=== PATIENT | female | born 1950 | race Caucasian/White ===

== ENCOUNTER 2017-03-17 13:01 | Inpatient (IN) ==
[2017-03-17] MEDS ORDERED: 0.9 % Sodium Chloride 1,000 ML IVC ONE ×2 (13:15→13:38)
[2017-03-17] MEDS ORDERED: Amiodarone Premix 360 MG/200 ML BAG IVC ONE (13:32)
[2017-03-17] MEDS ORDERED: Amiodarone Premix 150 MG/100 ML BAG IVPB ONE (13:32)
[2017-03-17 13:35] LABS: Basophils % 0.4 %; Hematocrit 33.6 % (35.3-44.9); Hemoglobin 10.4 g/dL (11.5-15.4); Immature Granulocytes % 1.1 % (0-4); Lymphocytes # 1.4 K/mcL (0.6-4.6); Lymphocytes % 25.5 %; Mean Corpuscular Hemoglobin 30.3 pg (28.0-33.3); Mean Platelet Volume 9.4 fL (9.4-12.4); Monocytes # 0.4 K/mcL (0.0-1.3); Monocytes % 7.4 %; Neutrophils # 3.7 K/mcL (1.6-8.9); Platelet Count 173 K/mcL (140-400); Red Blood Count 3.43 M/mcL (3.82-4.97); Red Cell Distribution Width 16.6 % (11.5-14.5); Segmented Neutrophils % 65.6 %
[2017-03-17 13:40] LABS: INR 1.2; Prothrombin Time 12.9 Seconds (9.4-12.1)
[2017-03-17 13:43] LABS: Activated Partial Thrombo Time 56.1 Seconds (26.0-36.0)
[2017-03-17 13:47] LABS: Calcium 8.7 mg/dL (8.6-10.8); Magnesium 1.9 mg/dL (1.6-2.6); Potassium 4.1 mEq/L (3.5-4.5)
[2017-03-17 14:08] LABS: Thyroid Stimulating Hormone 1.003 mcIU/mL (0.350-4.840)
[2017-03-17] MEDS ORDERED: *HR* Heparin 5,000 UNIT/ML VIAL IVP PRN (14:27)
[2017-03-17] MEDS ORDERED: *HR* Heparin 5,000 UNIT/ML VIAL IVP ONE (14:27)
--- NOTE | 2017-03-17 14:28 | Emergency Department Note ---
Disposition Clinical Impression: Atrial fibrillation with rapid ventricular response Chronic kidney disease (CKD) Qualifiers: Chronic kidney disease stage: stage 5, not on chronic dialysis Qualified Code(s ): N18.5 - Chronic kidney disease, stage 5 Disposition: Admitted As Inpatient Condition: Good Referrals: Eleazar Calhoun MD [Primary Care Provider] - Forms: ED Satisfaction Letter Arrhythmia/Palpitations HPI - General Chief Complaint: ED Dizziness Stated Complaint: lightheaded, cough, "high hr" Time Seen by Provider: 03/17/17 13:15 Source: patient, family Limitations: no limitations Nursing Notes Reviewed: Yes Vital Signs Reviewed: Yes - History of Present Illness Pt Subjective Complaint: rapid heart beat, "heart racing", "skipped beats" Onset (ago): week(s) (2) Duration: intermittent Severity: moderate Context: occurred during exertion Associated symptoms: Denies: chest pain, nausea, vomiting, paresthesias Treatments prior to arrival: other (Patient states when she stands up or walks symptoms worsen but she is asymptomatic at rest) - Related Data Allergies Allergy/AdvReac Type Severity Reaction Status Date / Time bacitracin Allergy Rash Verified 02/20/17 19:14 [From Neosporin ([id number])] Neomycin Allergy Rash Verified 02/20/17 19:14 [From Neosporin ([id number])] polymyxin B Allergy Rash Verified 02/20/17 19:14 [From Neosporin ([id number])] atorvastatin AdvReac Cramping Verified 03/17/17 14:40 of the Muscles plastic Allergy Rash Uncoded 02/20/17 19:14 tape Allergy Rash Uncoded 02/20/17 19:14 All systems ED: reviewed and negative except as stated. Constitutional: Reports: weakness. Denies: fever, chills Cardiovascular: Reports: palpitations, dyspnea on exertion. Denies: chest pain Respiratory: Reports: dyspnea Past Medical History - Past Medical History Source: patient, old records reviewed, nursing notes reviewed Medical history: Reports: CHF, coronary artery disease, diabetes, dialysis, hypertension, renal disease, other Surgical history: Reports: non-contributory Psychiatric history: Reports: no psych history MANAGER FORENSIC history: Reports: no MANAGER FORENSIC history - Social History Smoking Status: Never smoker Smokeless Tobacco Status: No Alcohol use: Reports: none Drug use: Reports: none Physical Exam - General Limitations: no limitations General appearance: alert - Head Head exam: atraumatic, normocephalic, normal inspection - Eye Eye exam: Present: normal appearance, PERRL, EOMI - ENT ENT exam: normal exam, normal oropharynx, mucous membranes moist - Neck Neck exam: Present: normal inspection, full ROM, trachea midline - Chest Chest inspection: Present: normal inspection, symmetric chest wall rise - Cardiovascular Cardiovascular exam: Present: tachycardia, irregular rhythm - Abdominal Exam Abdominal exam: Present: soft, Non-Tender. Absent: tenderness, distention, guarding, rebound, rigidity - Neurological Exam Neurological exam: Present: alert, oriented X3 - Psychiatric Psychiatric exam: Present: normal affect, normal mood - Skin Skin exam: Present: warm, dry, intact, normal color Course - Consultations Consultation #1: I spoke with Dr. Rios after initial EKG patient with no known history of arrhythmia presents with palpitations tachycardia in a wide-complex tachycardia on EKG. We decided to start with amiodarone until we can differentiate between V. tach and atrial fibrillation. Patient's rate did slow repeat EKG pattern appears to be more atrial fibrillation Dr. Rios wants to keep amiodarone for now they may change the medication to an AV mamie rancho later on started heparin drip admitted to the hospitalist service with cardiology consultation Time: 14:29 Vital Signs Temperature 98.4 F 03/17/17 13:03 Pulse Rate 145 03/17/17 13:03 Respiratory Rate 22 03/17/17 13:03 Blood Pressure 108/70 03/17/17 13:03 O2 Sat by Pulse Oximetry 96 03/17/17 13:03 Temperature 98.4 F 03/17/17 13:03 Pulse Rate 128 03/17/17 13:57 Respiratory Rate 18 03/17/17 13:57 Blood Pressure 128/69 03/17/17 13:57 O2 Sat by Pulse Oximetry 94 03/17/17 13:57 Oxygen Delivery Oxygen Delivery Room Air Arrhythmia/Palpitations - Differential Diagnosis Differential Diagnosis: Likely: ventricular premature beats, supraventricular tachycardia, ventricular tachycardia, metabolic/electrolyte disturbance, undetermined arrhythmia - Medical Records Medical records reviewed: Yes I reviewed the patient's medical records. - Lab Data Lab results reviewed: Yes I reviewed the patient's lab results. Result diagrams: 03/17/17 13:19 03/17/17 13:19 Lab Results 03/17/17 03/17/17 03/17/17 Range/Units 13:19 13:19 13:19 WBC 5.6 (4.3-11.1) K/mcL RBC 3.43 L (3.82-4.97) M/mcL Hgb 10.4 L (11.5-15.4) g/dL Hct 33.6 L (35.3-44.9) % MCV 98.0 (83.0-100.0) fL MCH 30.3 (28.0-33.3) pg MCHC 31.0 L (31.6-35.5) g/dL RDW 16.6 H (11.5-14.5) % Plt Count 173 (140-400) K/mcL MPV 9.4 (9.4-12.4) fL Immature Gran % 1.1 (0-4) % Seg Neutrophils % 65.6 % Lymphocytes % 25.5 % Monocytes % 7.4 % Eosinophils % 0.0 % Basophils % 0.4 % Neutrophils # 3.7 (1.6-8.9) K/mcL Lymphocytes # 1.4 (0.6-4.6) K/mcL Monocytes # 0.4 (0.0-1.3) K/mcL Eosinophils # 0.0 (0.0-0.6) K/mcL Basophils # 0.0 (0.0-0.2) K/mcL PT 12.9 H (9.4-12.1) Seconds INR 1.2 APTT 56.1 H (26.0-36.0) Seconds Sodium 139 (136-145) mEq/L Potassium 4.1 (3.5-4.5) mEq/L Chloride 100 (98-109) mEq/L Carbon Dioxide 28 (19-29) mEq/L BUN 38 H (7-20) mg/dL Creatinine 4.91 H (0.57-1.11) mg/dL Est GFR ( Amer) 11 L (> 60) Est GFR (Non-Af Amer) 9 L (> 60) BUN/Creatinine Ratio 8 (6-26) Glucose 216 H (70-99) mg/dL Calculated Osmolality 304 H (280-300) Calcium 8.7 (8.6-10.8) mg/dL Magnesium 1.9 (1.6-2.6) mg/dL Troponin I (0-0.03) ng/mL TSH 1.003 (0.350-4.840) mcIU/mL 03/17/17 Range/Units 13:19 WBC (4.3-11.1) K/mcL RBC (3.82-4.97) M/mcL Hgb (11.5-15.4) g/dL Hct (35.3-44.9) % MCV (83.0-100.0) fL MCH (28.0-33.3) pg MCHC (31.6-35.5) g/dL RDW (11.5-14.5) % Plt Count (140-400) K/mcL MPV (9.4-12.4) fL Immature Gran % (0-4) % Seg Neutrophils % % Lymphocytes % % Monocytes % % Eosinophils % % Basophils % % Neutrophils # (1.6-8.9) K/mcL Lymphocytes # (0.6-4.6) K/mcL Monocytes # (0.0-1.3) K/mcL Eosinophils # (0.0-0.6) K/mcL Basophils # (0.0-0.2) K/mcL PT (9.4-12.1) Seconds INR APTT (26.0-36.0) Seconds Sodium (136-145) mEq/L Potassium (3.5-4.5) mEq/L Chloride (98-109) mEq/L Carbon Dioxide (19-29) mEq/L BUN (7-20) mg/dL Creatinine (0.57-1.11) mg/dL Est GFR ( Amer) (> 60) Est GFR (Non-Af Amer) (> 60) BUN/Creatinine Ratio (6-26) Glucose (70-99) mg/dL Calculated Osmolality (280-300) Calcium (8.6-10.8) mg/dL Magnesium (1.6-2.6) mg/dL Troponin I 0.10 H* (0-0.03) ng/mL TSH (0.350-4.840) mcIU/mL - Radiology Data Radiology results reviewed: Yes I reviewed the patient's radiology results.
[2017-03-17] MEDS: Heparin 25,000 UNIT/500 ML D5W 25,000 UNIT/500 ML MLS IVC SCH (14:56)
[2017-03-17] MEDS ORDERED: Ondansetron 4 MG/2 ML VIAL IVP PRN (15:38)
[2017-03-17] MEDS ORDERED: Naloxone 0.4 MG/ML INJ IVP PRN (15:38)
[2017-03-17] MEDS ORDERED: *HR* Morphine 2 MG/ML SYRINGE IVP PRN (15:38)
[2017-03-17] MEDS ORDERED: Acetaminophen 325 MG TABLET PO PRN (15:38)
[2017-03-17] MEDS ORDERED: *HR* HYDROcodone/Acet 5/325 mg TABLET PO PRN (15:38)
[2017-03-17] MEDS ORDERED: *HR* Dextrose 50 % in Water (Syg) 50 ML SYRINGE IVP PRN (15:57)
[2017-03-17] MEDS ORDERED: Dextrose Gel 15 GM PO PRN ×2 (15:57)
[2017-03-17] MEDS ORDERED: D5% in Water 1,000 ML IVC PRN (15:57)
--- NOTE | 2017-03-17 15:57 | Internal Med History&Physical ---
<Guevara Dickinson - Last Filed: 03/17/17 16:41> Date of Encounter: 03/17/17 Time of Encounter: 15:00 Assessment and Plan (1) Atrial fibrillation with rapid ventricular response Current visit: Yes Status: Acute Patient presents with new onset of atrial fibrillation with RVR. Patient originally exhibited symptoms of V-tach and was placed on amiodarone and heparin drips in the ED. Following administration, it was flet that patient's symptomotology was due to Afib rather than V-tach. Will continue amiodarone and heparin IV drips, continuous cardiac telemetry ordered, will continue aspirin therapy, cardiology consult ordered (patient is currently followed by Dr. Anthony) , trend troponins x2 (patient's initial troponin level in ED was 0.10), and EV echocardiogram ordered. Will hold patient's Plavix. Patient to be monitored closely. (2) Lightheadedness Current visit: Yes Status: Acute Patient presents with chief complaint of lightheadedness related to standing. Will place patient on safety precautions and do orthostatic/bilateral BPs daily. Supplemental O2 ordered. (3) Orthostatic hypotension Current visit: Yes Status: Acute Patient presents with new onset of orthostatic hypotension when she stands up. She states that this is new for her. May be related to patient's current arrhythmia. Orthostatic and bilateral BPs ordered daily. Will monitor patient and vital signs. Falls precautions/af-eact-bxgqtg/bed rest with bedside commode with assist status ordered due to extreme lightheadedness and OH symptoms. (4) CHF (congestive heart failure) Current visit: Yes Status: Acute Patient presents with new diagnosis of CHF from approximately three weeks ago when she was also diagnosed with pneumonia. Supplemental O2 with titration if SpO2 <92%, continuous SpO2 monitoring, fluid restriction of 1.5L daily, Monitor I&O and daily weight, and continue patient's daily Lasix. Sputum culture ordered to assess for pneumonia. Qualifiers: Congestive heart failure type: unspecified congestive heart failure type Congestive heart failure chronicity: acute Qualified Code(s): I50.9 - Heart failure, unspecified (5) Diabetes Current visit: Yes Status: Chronic Patient presents with history of chronic diabetes with insulin dependency. Blood glucose monitoring ACHS. Will use low-dose correction sliding scale with hypoglycemia protocol. A1C ordered. Qualifiers: Diabetes mellitus type: type 2 Diabetes mellitus complication status: with unspecified complications Diabetes mellitus termination clerk insulin use: with prison use Qualified Code(s): E11.8 - Type 2 diabetes mellitus with unspecified complications; Z79.4 - detention (current) use of insulin (6) Chronic kidney disease (CKD) Current visit: Yes Status: Chronic Patient presents with history of chronic CKD, stage V with dialysis on M/W/F which began one month ago. Patient to be placed on cardiac diet with fluid restriction of 1.5L daily. Nephrology consult ordered and placed with Dr. Hurst who agrees to see patient while inpatient and schedule dialysis. Monitor I&O and daily weight. Qualifiers: Chronic kidney disease stage: on chronic dialysis Qualified Code(s): N18.6 - End stage renal disease; Z99.2 - Dependence on renal dialysis (7) DVT prophylaxis Current visit: Yes Status: Acute Patient to be placed on DVT prophylaxis due to admission protocol, new onset of atrial fibrillation with RVR, and bed rest status. Patient to be placed on Heparin drip. Anti-embolic stockings to be placed bilaterally. Internal Medicine - H&P: HPI Chief complaint: Lightheadedness, Rapid/racing HR Admitted From: Emergency Dept Plans for Post Hospital Care: Home History of present illness: Mrs. Madden is a 67 year old female who presents from the ED with chief complaint of being lightheaded and having a rapid/racing HR which she reports began in January and has become progressively worse over the past several days which led her to seek treatment in the ED. She states that she has no known previous history of atrial fibrillation. She states that she is fine when at rest or supine, but she becomes dizzy with standing and her BP drops significantly. She reports SOB with the rapid HR but denies chest pain, radiation, or numbness/tingling. Mrs. Madden reports that she was diagnosed with CHF and pneumonia approximately three weeks ago and placed on antibiotics and a steroid. She states that she finished both but continues to have a productive cough that she feels may still be pneumonia. Patient denies nausea, vomiting, generalized weakness, fever, chills, numbness, tingling, constipation , or diarrhea. Patient has a history of new CHF, CAD, diabetes with insulin dependency, hypertension, advanced stage renal disease (stage V with current GFR of 9), and recently began dialysis one month ago. She reports having two previous MIs that were asymptomatic and placement of 4 stents. Patient denies use of home O2 at this time. Patient was placed on IV amiodarone and heparin drips in the ED with cardiology consult placed. Mrs. Madden is high risk due to her new onset of atrial fibrillation with RVR and current cardiac risk factors and will be admitted as inpatient with continuous cardiac telemetry, continuation of amiodarone drip and heparin drip, trending troponins x2 (1st troponin on ED admission was 0.10), EV echocardiogram, bilateral and orthostatic BPs, nephrology consult with Dr. Hurst for continuation of patient's dialysis on Sunday, March 19, and falls precautions/[id number] status. Sputum culture ordered to assess for pneumonia. Patient to be monitored closely for new signs of RVR or V-tach. Time spent with patient >40 minutes. Past Med Surg Social Fam HX - Past Medical History Source: patient Medical history: CHF, coronary artery disease, diabetes, dialysis, hypertension , renal disease, other Psychiatric history: no psych history - Past Surgical History Surgical History: angioplasty/stent (x4), cholecystectomy, hysterectomy, orthopedic, other (Left hand, left foot, right shoulder), other (Balloon procedure in right arm for fistula) - Social History Smoking Status: Never smoker Smokeless Tobacco Status: No Alcohol use: none Drug use: none Current living situation: Home, With Family Activity Level: Independent ambulation Recent Out of Country Travel Within the Last 8 Weeks: No Exposure or Possible Exposure to Illness During Travel: No - Family History Father Race: Family Member Ethnicity: Non- Living Status: Age at : 50 Cause of : [place] Hx Family Cardiac Disorders: Yes ([place]) Mother Race: Family Member Ethnicity: Non- Living Status: Age at : 76 Cause of : Car accident Hx Family Cardiac Disorders: Yes (HD) Hx Family Endocrine Disorder: Yes (DM) Brother Race: Family Member Ethnicity: Non- Living Status: Still Living Hx Family Cardiac Disorders: Yes (HD) Hx Family Endocrine Disorder: Yes (DM) Sister Race: Family Member Ethnicity: Non- Living Status: Age at : 53 Cause of : Ovarian cancer Hx Family Cardiac Disorders: Yes (HD) Hx Family Cancer: Yes (Ovarian) Internal Medicine - H&P: Meds Aspirin [Lo-Dose Aspirin EC] 81 mg PO DAILY 03/17/17 [History] Carvedilol [Coreg] 6.25 mg PO BID 03/17/17 [History] Cholecalciferol (Vitamin D3) [Vitamin D] 2,000 unit PO WETHFR 03/17/17 [History] Clopidogrel [Plavix] 75 mg PO DAILY 03/17/17 [History] Furosemide [Lasix] 60 mg PO BID 03/17/17 [History] Gabapentin [Neurontin] 100 mg PO TID 03/17/17 [History] Hydralazine HCl 50 mg PO TID 03/17/17 [History] Insulin Glargine,Hum.rec.anlog [Lantus Solostar] 18 - 24 unit SQ BID 03/17/17 [ History] Insulin LISPRO [Humalog] 4 - 16 unit SQ TIDWM 03/17/17 [History] Isosorbide MONOnitrate (24 HR) [Imdur] 60 mg PO DAILY 03/17/17 [History] amLODIPine [Norvasc] 10 mg PO DAILY 03/17/17 [History] Allergies bacitracin [From Neosporin ([id number])] Allergy (Verified 02/20/17 19:14) Rash Neomycin [From Neosporin ([id number]-ide-[id number])] Allergy (Verified 02/20/17 19:14) Rash polymyxin B [From Neosporin ([id number])] Allergy (Verified 02/20/17 19:14) Rash atorvastatin Adverse Reaction (Verified 03/17/17 14:40) Cramping of the Muscles plastic Allergy (Uncoded 02/20/17 19:14) Rash tape Allergy (Uncoded 02/20/17 19:14) Rash All Systems PM: A 10-system review of systems was performed and is negative for pertinent findings except as documented above in the HPI. - Constitutional Constitutional: no chills, no fever(s), no night sweats - EENT Eyes: no change in vision, no discharge, no pain, no photophobia Ears: no ear discharge, no ear pain, no tinnitus Nose, mouth and throat: no dysphagia, no nasal discharge, no neck pain, no sore throat - Breasts Breasts: as per HPI - Cardiovascular Cardiovascular ROS IM: as per HPI, dyspnea, dyspnea on exertion, irregular heart rhythm, lightheadedness - Respiratory Respiratory: as per HPI, cough, dyspnea, dyspnea on exertion, chest congestion - Gastrointestinal Gastrointestinal: no abdominal pain, no diarrhea, no hematemesis, no hematochezia, no melena, no nausea, no vomiting - Genitourinary Genitourinary: no change in urinary stream, no dysuria, no flank pain, no hematuria Menstruation: as per HPI, post hysterectomy - Musculoskeletal Musculoskeletal ROS IM: no numbness, no tingling - Integumentary Integumentary IM: no rash, no unusual bruising - Neurological Neurological ROS: as per HPI, dizziness, no confusion, no convulsions, no focal weakness, no numbness, no tingling, no tremor(s) - Psychiatric Psychiatric: as per HPI - Endocrine Endocrine IM: as per HPI - Hematologic/Lymphatic Hematologic/Lymphatic: no easy bruising - Allergic/Immunologic Allergic/Immunologic: as per HPI - Constitutional Vitals: Temp Pulse Resp BP Pulse Ox 98.4 F 128 18 122/87 94 03/17/17 13:03 03/17/17 13:57 03/17/17 15:14 03/17/17 15:14 03/17/17 13:57 General appearance: Present: cooperative, A&O X 3, pleasant, no acute distress, obese, answers questions appropriately - Head Head exam: Present: atraumatic, normocephalic - Eye Eye exam: Present: PERRL, conjuntiva pink, sclera anicteric Pupils: Present: PERRL - ENT ENT exam: Present: normal exam, normal external ear exam - Neck Neck exam general surgery: Present: supple, trachea midline. Absent: lymphadenopathy - Respiratory Respiratory exam: Present: CTAB. Absent: accessory muscle use, rales, rhonchi, wheezes - Cardiovascular Cardiovascular exam: Present: irregular rhythm - GI/Abdominal GI/Abdominal exam: Present: normal bowel sounds, soft, no peritoneal signs. Absent: distended, tenderness - Rectal Rectal exam: Present: deferred - Additional comments: exam deferred. - Extremities Exam Extremities exam: Present: warm, radial pulses palpable and symetrical. Absent : calf tenderness, cyanotic, pedal edema - Back Exam Back exam: Present: normal inspection - Neurological Exam Neurological exam: Present: CN II-XII intact, oriented X3, no focal deficits. Absent: pronater drift, facial droop, speech deficit - Psychiatric Psychiatric exam: Present: normal affect, normal mood - Skin Skin exam: Present: dry, intact Internal Med - H&P Results - Labs CBC & Chem 7: 03/17/17 13:19 03/17/17 13:19 - EKG Data Prior EKG available for review: yes When compared to previous EKG: there are significant changes EKG comments: 03/17/17 16:17 EKG dated 02/18/16 shows sinus bradycardia with marked left axis deviation and moderate voltage criteria for LVH, possible anteroseptal myocardial infarction of indeterminate age. EKG dated 03/17/17 shows atrial fibrillation with RVR, marked left axis deviation, and left bundle branch block. - Diagnostic Studies Chest x-ray Additional comments: Impressions Chest X-Ray 03/17/17 13:15 IMPRESSION: Negative portable study. D/ / Nancy Stauffer Cha, MD / Nancy Stauffer Cha, MD Interpreting Provider: Nancy Stauffer Cha, MD <Han Aponte T - Last Filed: 03/17/17 17:41> Date of Encounter: 03/17/17 Internal Medicine - H&P: HPI History of present illness: Ms. Madden is a 67 year old female All Systems PM: A 10-system review of systems was performed and is negative for pertinent findings except as documented above in the HPI. - Constitutional Vitals: Temp Pulse Resp BP Pulse Ox 99.0 F 115 20 108/81 95 03/17/17 15:54 03/17/17 15:53 03/17/17 15:53 03/17/17 15:53 03/17/17 15:53 Internal Med - H&P Results - Labs CBC & Chem 7: 03/17/17 13:19 03/17/17 13:19 - Attending Attestation I have independently seen and examined this patient, plan of care discussed with patient and family, as well as KISHOR Dickinson 67 F with PMH of ESRD on HD, HTN, CAD with multiple stents, CHFpEF, Chronic LBBB on EKG Presented to ER with dizziness and fluttering/palpitations and shortness of breath for a couple of days. She also complained of low blood pressure upon getting up. She denies chest pain, no abdominal or symptoms. In the ER, was found to be tachycardia, HR 143, not in any form of distress Her work up further revealed a wide complex tachycardia (patient has LBBB on her old EKGs), Hb at baseline, K and mag are acceptable, Troponin elevated at 0.10, TSH WNL. Cardiology was consulted due to the wide complex tachycardia in a hemodynamically stable patient and recommended amiodarone and heparin infusions. Her repeat EKG then showed Afib. On evaluation, she is in no form of distress, speaks full sentences, HR ranged from 105-110 at time of review, BP WNL, AAOX3, and no complains of dizziness at this time, Chest exam revealed few fine crackles. R>L. No wheezing, abdomen exam is benign and no pedal edema, she has a functioning R AVF. A/P *Afib with RVR: Continue amiodarone and heparin drip, hold Plavix. Cardiology eval, Obtain ECHO-last echo was 01/2016, noted. TSH is WNL *Elevated troponin possibly from demand ischemia from tachycardia, however, patient has multiple cardiac history, trend troponins, monitor Mag and Potassium. *Consult renal for resumption of routine dialysis, resume home meds. Rest of details as in [facility] documentation .
[2017-03-17 17:12] LABS: Activated Partial Thrombo Time 210.4 Seconds (26.0-36.0)
[2017-03-17 17:20] LABS: Heparin anti-factor XA UFH 0.48 IU/mL (0.30-0.70)
[2017-03-17] MEDS: Insulin LISPRO 300 UNITS/3 ML VIAL SQ SCH ×2 (18:00→21:04)
[2017-03-17] MEDS: Amiodarone Premix 360 MG/200 ML BAG IVC SCH (19:49)
[2017-03-17] MEDS: hydrALAZINE 25 MG TABLET PO SCH (21:05)
[2017-03-17] MEDS: Gabapentin 100 MG CAPSULE PO SCH (21:05)
[2017-03-17] MEDS: Furosemide 40 MG TABLET PO SCH (21:05)
[2017-03-18 03:20] LABS: INR 1.2; Prothrombin Time 13.2 Seconds (9.4-12.1)
[2017-03-18 03:25] LABS: Basophils % 0.3 %; Hemoglobin 9.2 g/dL (11.5-15.4); Immature Granulocytes % 1.2 % (0-4); Lymphocytes # 1.8 K/mcL (0.6-4.6); Lymphocytes % 29.9 %; Mean Corpuscular HGB Conc 29.7 g/dL (31.6-35.5); Mean Corpuscular Hemoglobin 29.1 pg (28.0-33.3); Mean Corpuscular Volume 98.1 fL (83.0-100.0); Mean Platelet Volume 9.5 fL (9.4-12.4); Monocytes # 0.5 K/mcL (0.0-1.3); Monocytes % 7.9 %; Neutrophils # 3.7 K/mcL (1.6-8.9); Platelet Count 165 K/mcL (140-400); Red Blood Count 3.16 M/mcL (3.82-4.97); Red Cell Distribution Width 16.6 % (11.5-14.5); Segmented Neutrophils % 60.7 %
[2017-03-18 03:28] LABS: Hemoglobin A1C 7.3 %
[2017-03-18 03:29] LABS: Activated Partial Thrombo Time 71.1 Seconds (26.0-36.0)
[2017-03-18 03:32] LABS: Calcium 8.3 mg/dL (8.6-10.8); Chol/HDL Ratio 6.8 (0-4.9); Potassium 4.6 mEq/L (3.5-4.5)
[2017-03-18] MEDS: Insulin LISPRO 300 UNITS/3 ML VIAL SQ SCH ×4 (08:03→20:50)
[2017-03-18] MEDS: Amiodarone Premix 360 MG/200 ML BAG IVC SCH (08:04)
[2017-03-18] MEDS ORDERED: amLODIPine 5 MG TABLET PO SCH (09:00)
--- NOTE | 2017-03-18 09:22 | Cardiology Consult Note ---
Date of Encounter: 03/18/17 Time of Encounter: 09:15 Assessment and Plan (1) CAD in [place] artery Current Visit: Yes Status: Acute (2) Stented coronary artery Current Visit: Yes Status: Acute (3) Atrial fibrillation with rapid ventricular response Current Visit: Yes Status: Acute AF, HR now better controlled. LBBB noted. No chest pain reported. Recommend stop amiodarone. Increase carvedilol to 12.5 mg BID. If BP does not tolerate, reduce dose or consider changed to Toprol XL. CHADS-VASc score elevated. R/B/A to anticoagulation discussed. Given CKD on HD , coumadin would be best choice. Continue heparin drip for now and then consider transition to Coumadin after TTE resulted. Further recommedations to follow. (4) Troponin level elevated Current Visit: Yes Status: Acute Mildly elevation, flat troponin. Suspect related to AF with RVR and demand ischemia. Currently chest pain free. Presentation not c/w ACS. Discussion w patient/family: The assessment and plan as outlined above was discussed with the patient and/or family members who expressed understanding and agreement. All questions were answered. Thank you for involving us in the care of your patient. Please call with any questions. History of Present Illness Consult date: 03/18/17 Requesting physician: Han Aponte Consult reason: AF, LBBB Chief complaint: Lightheadedness, Tachycardia History of present illness: Ms. Madden is a 67 year old female who presented with primary complaints of palpitations/tachycardia and lightheadedness. Noted in ER to have tachycardia with wide QRS - at first, not clear if VT or AF with LBBB. Patient given amiodarone, once tachycardia slowed down, it became apparent rhythm with AF with LBBB. Today, HR better controlled. PMH - [place] CAD, prior PCI, CKD now on HD, DMII, HTN. Hg 9.2 K 4.1, now 4.6. Cr 4.91, 5.92. Tn 0.1, 0.1, 0.11 C 02/2015: LM nl. LAD proximal 50% ISR. Cx proximal 80% (stent x1 placed). RCA proximal 30%. RPDA 30% stenosis. TTE 01/2016: LVEF 60-65%. Mild concentric LVH. Moderate diastolic dysfunction. Normal RV size and function. Mild , MG 15 mmHg. Moderate MAC, thickened MV. No MS or MR. No pHTN. Past Med Surg Social Fam HX - Past Medical History Medical history: CHF, coronary artery disease, diabetes, dialysis, hypertension , renal disease, other Psychiatric history: no psych history - Past Surgical History Surgical History: angioplasty/stent, cholecystectomy, hysterectomy, orthopedic, other, other - Social History Smoking Status: Never smoker Smokeless Tobacco Status: No Alcohol use: none Drug use: none - Family History Father Race: Family Member Ethnicity: Non- Living Status: Age at : 50 Cause of : [place] Hx Family Cardiac Disorders: Yes ([place]) Mother Race: Family Member Ethnicity: Non- Living Status: Age at : 76 Cause of : Car accident Hx Family Cardiac Disorders: Yes (HD) Hx Family Endocrine Disorder: Yes (DM) Brother Race: Family Member Ethnicity: Non- Living Status: Still Living Hx Family Cardiac Disorders: Yes (HD) Hx Family Endocrine Disorder: Yes (DM) Sister Race: Family Member Ethnicity: Non- Living Status: Age at : 53 Cause of : Ovarian cancer Hx Family Cardiac Disorders: Yes (HD) Hx Family Cancer: Yes (Ovarian) Medications and Allergies Aspirin [Lo-Dose Aspirin EC] 81 mg PO DAILY 03/17/17 [History] Carvedilol [Coreg] 6.25 mg PO BID 03/17/17 [History] Cholecalciferol (Vitamin D3) [Vitamin D] 2,000 unit PO WETHFR 03/17/17 [History] Clopidogrel [Plavix] 75 mg PO DAILY 03/17/17 [History] Furosemide [Lasix] 60 mg PO BID 03/17/17 [History] Gabapentin [Neurontin] 100 mg PO TID 03/17/17 [History] Hydralazine HCl 50 mg PO TID 03/17/17 [History] Insulin Glargine,Hum.rec.anlog [Lantus Solostar] 18 - 24 unit SQ BID 03/17/17 [ History] Insulin LISPRO [Humalog] 4 - 16 unit SQ TIDWM 03/17/17 [History] Isosorbide MONOnitrate (24 HR) [Imdur] 60 mg PO DAILY 03/17/17 [History] amLODIPine [Norvasc] 10 mg PO DAILY 03/17/17 [History] Allergies bacitracin [From Neosporin ([id number]-[id number])] Allergy (Verified 02/20/17 19:14) Rash Neomycin [From Neosporin ([id number]-[id number])] Allergy (Verified 02/20/17 19:14) Rash polymyxin B [From Neosporin ([id number]-ivi-[id number])] Allergy (Verified 02/20/17 19:14) Rash atorvastatin Adverse Reaction (Verified 03/17/17 14:40) Cramping of the Muscles plastic Allergy (Uncoded 02/20/17 19:14) Rash tape Allergy (Uncoded 02/20/17 19:14) Rash All Systems Review: A 10-system review of systems was performed and is negative for pertinent findings except as documented above in the HPI. - Cardiovascular Cardiovascular: as per HPI, lightheadedness, palpitations, rapid heart rate Physical Examination Vital Signs, Last 4 Hours Temp Pulse Resp BP Pulse Ox 03/18/17 07:41 97.7 F 90 18 109/70 94 03/18/17 07:30 82 97 General: Conversant, No Apparent Distress HEENT: Atraumatic, Normocephaly, Mucus Membranes Moist Neck: No JVD Cardiac: Other (Irregular rate and rhythm, Grade 2 nan. ) Lungs: Normal Breath Sounds, No Wheeze, Rales, Rhonchi Neuro: Alert and responsive, No focal deficits noted Abdomen: Soft, Non-Tender Skin: No rashes noted on visualized skin Musculoskeletal: No Chest Wall Tenderness Extremities: No Clubbing, No Cyanosis, No Edema Results 03/18/17 02:58 03/18/17 02:58 Lab Results 03/17/17 03/17/17 03/18/17 16:34 18:54 02:58 WBC Hgb Hct Plt Count INR APTT 210.4 H* D Sodium Potassium Chloride Carbon Dioxide BUN Creatinine Glucose Calcium Troponin I 0.10 H* 0.11 H* 03/18/17 03/18/17 03/18/17 02:58 02:58 02:58 WBC 6.1 Hgb 9.2 L Hct 31.0 L Plt Count 165 INR 1.2 APTT 71.1 H D Sodium 139 Potassium 4.6 H Chloride 101 Carbon Dioxide 25 BUN 44 H Creatinine 5.92 H Glucose 147 H Calcium 8.3 L Troponin I - Imaging and Cardiology Echo: report reviewed Cardiac cath: report reviewed - EKG Interpretation EKG results cardiology: personally reviewed Consult Discharge Plan - Plan Referrals: Eleazar Calhoun MD [Primary Care Provider] -
[2017-03-18] MEDS: Aspirin Enteric Coated 81 MG Tablet PO SCH (09:56)
[2017-03-18] MEDS: hydrALAZINE 25 MG TABLET PO SCH ×3 (09:56→20:51)
[2017-03-18] MEDS: Gabapentin 100 MG CAPSULE PO SCH ×3 (09:57→20:51)
[2017-03-18] MEDS: Furosemide 40 MG TABLET PO SCH ×2 (09:57→20:51)
[2017-03-18] MEDS: Isosorbide MONOnitrate (24 HR) 60 MG TAB.ER.24H PO SCH (10:00)
--- NOTE | 2017-03-18 10:36 | Nephrology Consult Note ---
Date of Encounter: 03/18/17 Time of Encounter: 10:20 Assessment and Plan (1) ESRD (end stage renal disease) on dialysis Current Visit: Yes Status: Acute New onset Afib, on Amiodorone and Heparin drips. AR controlled, 92. ESRD on dialysis in setting of DM II and HTN. No urgent need for HD. Will dialyze tomorrow, keeping [facility] schedule. History of Present Illness - Reason for Consult end stage renal disease - History of Present Illness Ms. Madden is a 67 year old female with ESRD who dialyzes at [facility], last HD on Sunday. Other PMH- CAD, CHF, DM, HTN. Ms Madden presented to [facility] with new onset Afib with complaints of lightheadedness and fast heart rate. Started on Amiodorone and heparin drips. This morning states feeling much better. Denies SOB or chest pain. AR 92. Past Med Surg Social Fam HX - Past Medical History Medical history: CHF, coronary artery disease, diabetes, dialysis, hypertension , renal disease, other Psychiatric history: no psych history - Past Surgical History Surgical History: angioplasty/stent, cholecystectomy, hysterectomy, orthopedic, other, other - Social History Smoking Status: Never smoker Smokeless Tobacco Status: No Alcohol use: none Drug use: none - Family History Father Race: Family Member Ethnicity: Non- Living Status: Age at : 50 Cause of : [place] Hx Family Cardiac Disorders: Yes ([place]) Mother Race: Family Member Ethnicity: Non- Living Status: Age at : 76 Cause of : Car accident Hx Family Cardiac Disorders: Yes (HD) Hx Family Endocrine Disorder: Yes (DM) Brother Race: Family Member Ethnicity: Non- Living Status: Still Living Hx Family Cardiac Disorders: Yes (HD) Hx Family Endocrine Disorder: Yes (DM) Sister Race: Family Member Ethnicity: Non- Living Status: Age at : 53 Cause of : Ovarian cancer Hx Family Cardiac Disorders: Yes (HD) Hx Family Cancer: Yes (Ovarian) Medications and Allergies Aspirin [Lo-Dose Aspirin EC] 81 mg PO DAILY 03/17/17 [History] Carvedilol [Coreg] 6.25 mg PO BID 03/17/17 [History] Cholecalciferol (Vitamin D3) [Vitamin D] 2,000 unit PO WETHFR 03/17/17 [History] Clopidogrel [Plavix] 75 mg PO DAILY 03/17/17 [History] Furosemide [Lasix] 60 mg PO BID 03/17/17 [History] Gabapentin [Neurontin] 100 mg PO TID 03/17/17 [History] Hydralazine HCl 50 mg PO TID 03/17/17 [History] Insulin Glargine,Hum.rec.anlog [Lantus Solostar] 18 - 24 unit SQ BID 03/17/17 [ History] Insulin LISPRO [Humalog] 4 - 16 unit SQ TIDWM 03/17/17 [History] Isosorbide MONOnitrate (24 HR) [Imdur] 60 mg PO DAILY 03/17/17 [History] amLODIPine [Norvasc] 10 mg PO DAILY 03/17/17 [History] Allergies bacitracin [From Neosporin ([id number])] Allergy (Verified 02/20/17 19:14) Rash Neomycin [From Neosporin ([id number]-zby-zclbr)] Allergy (Verified 02/20/17 19:14) Rash polymyxin B [From Neosporin (qqy-sth-mpiqr)] Allergy (Verified 02/20/17 19:14) Rash atorvastatin Adverse Reaction (Verified 03/17/17 14:40) Cramping of the Muscles plastic Allergy (Uncoded 02/20/17 19:14) Rash tape Allergy (Uncoded 02/20/17 19:14) Rash Review of Systems All Systems: reviewed and no additional remarkable complaints except as stated Exam - Vital Signs Vital signs: Initial Vital Signs Temp Pulse Resp BP Pulse Ox 98.4 F 145 22 108/70 96 03/17/17 13:03 03/17/17 13:03 03/17/17 13:03 03/17/17 13:03 03/17/17 13:03 Vital Signs - Last 8 Hours Temp Pulse Resp BP Pulse Ox 03/18/17 07:41 97.7 F 90 18 109/70 94 03/18/17 07:30 82 97 03/18/17 05:12 97.6 F 92 20 112/97 96 03/18/17 04:37 95 Intake and Output 03/17/17 03/18/17 03/18/17 23:59 07:59 15:59 Intake Total 432 / 432 337 / 337 415 / 415 Output Total 0 / 0 Balance 432 / 432 337 / 337 415 / 415 Intake: IV Fluids 32 / 32 337 / 337 235 / 235 Amiodarone Drip Premix 195 / 195 35 / 35 360mg/200mL 360 mg In 200 ml @ 0.5 MG/MIN 16.667 mls/hr IVC CONT DELIO Rx#: [id number] Heparin 25,000 UNIT/500 32 / 32 142 / 142 ML D5W 25,000 unit In 500 ml @ 12 UNIT/KG/HR 21. 664 mls/hr IVC .Q23H5M DELIO Rx#:[id number] Oral 400 / 400 0 / 0 180 / 180 Output: Urine 0 / 0 Other: Stool Size Moderate Stool Consistency soft Stool Color Brown # Urine Diapers 2 # Bowel Movements 1 Weight 91.4 kg Blood Glucose* 184 121 Patient Weight 03/18/17 23:59 Weight 91.4 kg - General Appearance General appearance: well-developed, well-nourished, appears started age EENT: mucous membranes moist Neck: no JVD, no carotid bruit Respiratory: clear Cardiology: no edema, irregular rhythm Gastrointestinal: normoactive bowel sounds, no tenderness Integumentary: warm and dry Neurologic: alert and oriented x3 Psychiatric: mood/affect appropriate, cooperative Results - Lab Results 03/18/17 02:58 03/18/17 02:58 Most recent lab results Calcium 8.3 mg/dL (8.6-10.8) L 03/18/17 02:58 Magnesium 1.9 mg/dL (1.6-2.6) 03/17/17 13:19 Consult Discharge Plan - Plan Referrals: Eleazar Calhoun MD [Primary Care Provider] -
[2017-03-18] MEDS: *HR* Heparin 5,000 UNIT/ML VIAL IVP PRN (14:58)
--- NOTE | 2017-03-18 15:22 | Internal Med Progress Note ---
Date of Encounter: 03/18/17 Time of Encounter: 15:10 - Assessment and plan (1) Atrial fibrillation with rapid ventricular response Current Visit: Yes Status: Acute Assessment and plan: Patient presents with new onset of atrial fibrillation with RVR. stopped amiodarone, increased coreg, BP seems to be better now,HR seems much controlled. on heparin drip, change to coumadin at dc. f/u ECHO results (2) Chronic kidney disease (CKD) Current Visit: Yes Status: Chronic Assessment and plan: Patient presents with history of chronic CKD, stage V with dialysis on M/W/F which began one month ago. Patient to be placed on cardiac diet with fluid restriction of 1.5L daily. Nephrology consult ordered and placed with Dr. Hurst who agrees to see patient while inpatient and schedule dialysis. Monitor I&O Qualifiers: Chronic kidney disease stage: on chronic dialysis Qualified Code(s): N18.6 - End stage renal disease; Z99.2 - Dependence on renal dialysis (3) CHF (congestive heart failure) Current Visit: Yes Status: Acute Qualifiers: Congestive heart failure type: unspecified congestive heart failure type Congestive heart failure chronicity: acute Qualified Code(s): I50.9 - Heart failure, unspecified (4) Diabetes Current Visit: Yes Status: Chronic Assessment and plan: Patient presents with history of chronic diabetes with insulin dependency. Blood glucose monitoring ACHS. Will use low-dose correction sliding scale with hypoglycemia protocol. Qualifiers: Diabetes mellitus type: type 2 Diabetes mellitus complication status: with unspecified complications Diabetes mellitus [facility] insulin use: with [facility] use Qualified Code(s): E11.8 - Type 2 diabetes mellitus with unspecified complications; Z79.4 - [facility] (current) use of insulin (5) ESRD (end stage renal disease) on dialysis Current Visit: Yes Status: Acute Assessment and plan: will be followed by renal., HD on her regular days. - Subjective Interval history: seen at the bedside, denies any complains came in for hypotesion and tachycardia, noted to have afib rvr. cardio has been consulted, will follow recommendations. HR stable for now, on heparin drip plan to switch to coumadin. - Constitutional Vitals: Temp Pulse Resp BP Pulse Ox 97.7 F 99 16 103/70 92 03/18/17 11:20 03/18/17 14:52 03/18/17 11:20 03/18/17 14:52 03/18/17 14:52 General appearance: Present: cooperative, A&O X 3, pleasant, no acute distress, obese, answers questions appropriately Exam: neck- supple chest- b/l clear, no added sounds CVS-s1 and s2, no mr/r/g abd-soft, non tender, bs are present ext -no edema neuro- alert and awake, no focal neuro defecits. Internal Medicine: Result - Labs CBC & Chem 7: 03/18/17 02:58 03/18/17 02:58 Labs: Short CBC 03/18/17 Range/Units 02:58 WBC 6.1 (4.3-11.1) K/mcL Hgb 9.2 L (11.5-15.4) g/dL Hct 31.0 L (35.3-44.9) % Plt Count 165 (140-400) K/mcL Neutrophils # 3.7 (1.6-8.9) K/mcL BMP 03/18/17 02:58 Sodium 139 Potassium 4.6 H Chloride 101 Carbon Dioxide 25 BUN 44 H Creatinine 5.92 H Glucose 147 H Calcium 8.3 L Cardiac Enzymes 03/17/17 03/18/17 Range/Units 18:54 02:58 Troponin I 0.10 H* 0.11 H* (0-0.03) ng/mL - ABG Interpretation ABG results: PT/INR, D-dimer PT 13.2 Seconds (9.4-12.1) H 03/18/17 02:58 - Impressions Impressions Chest X-Ray 03/18/17 08:35 IMPRESSION: Cardiomegaly. No pneumonia or edema D/ / Quentin Godinez MD / Quentin Godinez MD Interpreting Provider: Quentin Godinez MD - VTE Documentation of Mechanical Device: Graduated compression elastic hosiery Consult Discharge Plan - Plan Referrals: Eleazar Calhoun MD [Primary Care Provider] -
[2017-03-18] MEDS: Heparin 25,000 UNIT/500 ML D5W 25,000 UNIT/500 ML MLS IVC SCH (21:00)
[2017-03-19 05:28] LABS: Basophils % 0.4 %; Hematocrit 33.4 % (35.3-44.9); Hemoglobin 10.3 g/dL (11.5-15.4); Immature Granulocytes % 1.9 % (0-4); Lymphocytes # 1.8 K/mcL (0.6-4.6); Lymphocytes % 34.1 %; Mean Corpuscular HGB Conc 30.8 g/dL (31.6-35.5); Mean Corpuscular Hemoglobin 30.5 pg (28.0-33.3); Mean Corpuscular Volume 98.8 fL (83.0-100.0); Mean Platelet Volume 10.6 fL (9.4-12.4); Monocytes # 0.4 K/mcL (0.0-1.3); Monocytes % 6.9 %; Neutrophils # 2.9 K/mcL (1.6-8.9); Platelet Count 127 K/mcL (140-400); Red Blood Count 3.38 M/mcL (3.82-4.97); Red Cell Distribution Width 16.5 % (11.5-14.5); Segmented Neutrophils % 56.7 %
[2017-03-19 05:31] LABS: INR 1.1; Prothrombin Time 12.4 Seconds (9.4-12.1)
[2017-03-19 05:40] LABS: Calcium 8.6 mg/dL (8.6-10.8); Potassium 4.6 mEq/L (3.5-4.5)
[2017-03-19] MEDS: *HR* Heparin 5,000 UNIT/ML VIAL IVP PRN (06:30)
[2017-03-19] MEDS: Insulin LISPRO 300 UNITS/3 ML VIAL SQ SCH ×4 (07:47→20:49)
[2017-03-19] MEDS: Isosorbide MONOnitrate (24 HR) 60 MG TAB.ER.24H PO SCH (07:52)
[2017-03-19] MEDS: Furosemide 40 MG TABLET PO SCH ×2 (07:52→23:36)
[2017-03-19] MEDS: Gabapentin 100 MG CAPSULE PO SCH ×3 (07:52→23:36)
[2017-03-19] MEDS: Aspirin Enteric Coated 81 MG Tablet PO SCH (07:53)
[2017-03-19] MEDS: hydrALAZINE 25 MG TABLET PO SCH ×3 (07:53→23:36)
[2017-03-19] MEDS ORDERED: amLODIPine 5 MG TABLET PO SCH (09:00)
[2017-03-19] MEDS ORDERED: 0.9 % Sodium Chloride 250 ML IVC PRN (09:03)
--- NOTE | 2017-03-19 09:03 | Nephrology Progress Note ---
Date of Encounter: 03/19/17 Time of Encounter: 09:01 - Assessment and Plan (1) ESRD (end stage renal disease) on dialysis Current Visit: Yes Status: Acute The patient will undergo dialysis later today. She will be placed on Aranesp for her anemia. She is scheduled to undergo a cardiac catheter today. (2) Atrial fibrillation with rapid ventricular response Current Visit: Yes Status: Acute (3) CAD in [place] artery Current Visit: Yes Status: Acute Subjective Interval history: Patient reports she is feeling better. She is less short of breath. Her heart rate is under better control. She is going to undergo cardiac catheter today followed by routine dialysis. Objective - Vital Signs Vital signs: Vital Signs Temp Pulse Resp BP Pulse Ox 03/19/17 07:27 97.7 F 91 16 117/80 91 03/19/17 04:49 97.8 F 95 17 117/80 95 03/19/17 03:45 85 03/18/17 23:44 97.6 F 93 16 109/68 100 03/18/17 22:55 98 03/18/17 20:50 95 03/18/17 20:24 98 F 95 17 120/83 94 03/18/17 18:04 98.8 F 109 16 114/86 90 03/18/17 17:43 106 114/86 92 03/18/17 14:52 99 103/70 92 03/18/17 11:52 90 95 03/18/17 11:20 97.7 F 99 16 116/80 90 Intake and Output 03/18/17 03/19/17 03/19/17 23:59 07:59 15:59 Intake Total 1273.8 / 1273.8 137 / 137 240 / 240 Balance 1273.8 / 1273.8 137 / 137 240 / 240 Intake: IV Fluids 163.8 / 163.8 137 / 137 Heparin 25,000 UNIT/500 163.8 / 163.8 137 / 137 ML D5W 25,000 unit In 500 ml @ 12 UNIT/KG/HR 21. 664 mls/hr IVC .Q23H5M DELIO Rx#:[id number] Oral 1110 / 1110 240 / 240 Other: Meal Dinner Breakfast Percent of Meal Consumed 90% 40% # Voids 1 Weight 90.7 kg Blood Glucose* 237 124 Patient Weight 03/19/17 23:59 Weight 90.7 kg - General Appearance Exam: Patient is alert and oriented. She is in no acute distress. Lungsbreath sounds otherwise clear. Heart irregular rate and rhythm consistent with atrial fibrillation. Abdomen is benign. There is minimal lower extremity swelling. There is a functioning AV fistula in the right upper extremity. - Lab 03/19/17 04:54 03/19/17 04:54 Most recent lab results Calcium 8.6 mg/dL (8.6-10.8) 03/19/17 04:54 Magnesium 1.9 mg/dL (1.6-2.6) 03/17/17 13:19 - VTE Documentation of Mechanical Device: Graduated compression elastic hosiery Consult Discharge Plan - Plan Referrals: Eleazar Calhoun MD [Primary Care Provider] -
--- NOTE | 2017-03-19 09:56 | Electrocardiograph Report ---
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
--- NOTE | 2017-03-19 09:57 | Electrocardiograph Report ---
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
--- NOTE | 2017-03-19 10:18 | Event Note ---
Date of Encounter: 03/19/17 Time of Encounter: 10:16 Known history of CAD, prior PCI. New CMP noted on echocardiogram. R/B/A to a LHC discussed. She is agreeable to proceed. Continue heparin for now; bridge to Coumadin for AF after LHC completed. Further recommendations to follow.
--- NOTE | 2017-03-19 11:04 | Pre-Sedation Evaluation ---
Pre-sedation evaluation - Pre-sedation checklist Date of procedure: 03/19/17 Procedure: LHC Recent Vitals: Last Vital Signs Temp 97.7 F 03/19/17 08:35 Pulse 91 03/19/17 08:35 Resp 16 03/19/17 08:35 BP 117/80 03/19/17 08:35 Pulse Ox 117 03/19/17 09:45 Dietary Status: NPO after Midnight ASA Classification *see protocol: CLASS II-Mild systemic disease Plan of Care: Pt appropriate candidate for procedure/moderate/conscious sedation , Risks/benefits of procedure/sedation discussed w/ patient/family
--- NOTE | 2017-03-19 12:19 | Internal Med Progress Note ---
Date of Encounter: 03/19/17 Time of Encounter: 12:16 - Assessment and plan (1) Atrial fibrillation with rapid ventricular response Current Visit: Yes Status: Acute Assessment and plan: Patient presents with new onset of atrial fibrillation with RVR. stopped amiodarone, increased coreg, BP seems to be better now,HR seems much controlled. on heparin drip, ECHO shows new cardiomyopathy. plan LHC today, will follow results (2) CHF (congestive heart failure) Current Visit: Yes Status: Acute Assessment and plan: new systolic CHF with EF of 35-40% plan to have LHC today with cardio. no signs of volume overload at this time, luis follow cardio recommendations Qualifiers: Congestive heart failure type: unspecified congestive heart failure type Congestive heart failure chronicity: acute Qualified Code(s): I50.9 - Heart failure, unspecified (3) Diabetes Current Visit: Yes Status: Chronic Assessment and plan: Patient presents with history of chronic diabetes with insulin dependency. Blood glucose monitoring ACHS. Will use low-dose correction sliding scale with hypoglycemia protocol. Qualifiers: Diabetes mellitus type: type 2 Diabetes mellitus complication status: with unspecified complications Diabetes mellitus usp insulin use: with bed bug exterminator use Qualified Code(s): E11.8 - Type 2 diabetes mellitus with unspecified complications; Z79.4 - intermediate teacher (current) use of insulin (4) ESRD (end stage renal disease) on dialysis Current Visit: Yes Status: Acute Assessment and plan: will be followed by renal., HD on her regular days. today for HD. - Subjective Interval history: seen at the bedside, denies any complains came in for hypotesion and tachycardia, noted to have afib rvr. cardio has been consulted,HR better today, ECHO results with new CM, plan for LHC Today. - Constitutional Vitals: Temp Pulse Resp BP Pulse Ox 97.8 F 94 16 83/64 92 03/19/17 11:22 03/19/17 11:22 03/19/17 11:22 03/19/17 11:22 03/19/17 11:22 General appearance: Present: cooperative, A&O X 3, pleasant, no acute distress, obese, answers questions appropriately Exam: neck- supple chest- b/l clear, no added sounds CVS-s1 and s2, no mr/r/g abd-soft, non tender, bs are present ext -no edema neuro- alert and awake, no focal neuro defecits. Internal Medicine: Result - Labs CBC & Chem 7: 03/19/17 04:54 03/19/17 04:54 Labs: Short CBC 03/19/17 Range/Units 04:54 WBC 5.2 (4.3-11.1) K/mcL Hgb 10.3 L (11.5-15.4) g/dL Hct 33.4 L (35.3-44.9) % Plt Count 127 L (140-400) K/mcL Neutrophils # 2.9 (1.6-8.9) K/mcL BMP 03/19/17 04:54 Sodium 139 Potassium 4.6 H Chloride 101 Carbon Dioxide 21 BUN 61 H D Creatinine 6.73 H Glucose 98 Calcium 8.6 - ABG Interpretation ABG results: PT/INR, D-dimer PT 12.4 Seconds (9.4-12.1) H 03/19/17 04:54 - VTE Documentation of Mechanical Device: Graduated compression elastic hosiery Consult Discharge Plan - Plan Referrals: Eleazar Calhoun MD [Primary Care Provider] -
[2017-03-19 13:13] LABS: Activated Partial Thrombo Time 132.1 Seconds (26.0-36.0)
[2017-03-19 13:29] LABS: Heparin anti-factor XA UFH 0.17 IU/mL (0.30-0.70)
[2017-03-19 13:37] LABS: Hepatitis B Surface Antigen Nonreactive (Nonreactive)
[2017-03-19] MEDS ORDERED: Verapamil 5 MG/2 ML VIAL ONE (14:30)
[2017-03-19] MEDS ORDERED: 0.9 % Sodium Chloride 1,000 ML ONE ×3 (14:30→19:13)
[2017-03-19] MEDS ORDERED: Nitroglycerin 1,000 MCG/10 ML VIAL IV ONE (14:31)
[2017-03-19] MEDS ORDERED: Heparin 1,000 UNITS/500 mL NS 500 ML ONE (14:31)
[2017-03-19] MEDS ORDERED: *HR* Heparin 10,000 UNIT/10 ML VIAL ONE (14:31)
[2017-03-19] MEDS ORDERED: *HR* FentaNYL (PF) 100 MCG/2 ML VIAL ONE (15:11)
[2017-03-19] MEDS ORDERED: *HR* Midazolam HCl 2 MG/2 ML VIAL ONE (15:11)
--- NOTE | 2017-03-19 15:56 | Event Note ---
Date of Encounter: 03/19/17 Time of Encounter: 15:52 Case discussed with interventional cardiology. No significant CAD amenable to revascularization. EF possibly better on v-gram. Recommend rate control and full AC for atrial fibrillation. Given ESRD, Coumadin would be best option. Recommend bridge coumadin with heparin drip. Recommend pharmacy to dose coumadin and refer to coumadin clinic. Start when okay with all services. Patient agreeable to start coumadin. Overall, HR seems well controlled. Recommend continue aspirin/BB therapy. BP marginal and potassium elevated, no ACEi or ARB for now. Statin allergy noted. No further inpatient recommendations. Repeat limited TTE as outpatient to evaluate LVEF after a period of rate control. Recommend followup with primary bed spring maker, Dr. Anthony upon discharge. Cardiology will sign off. Thanks, Solis Rios DO, FACC
--- NOTE | 2017-03-19 16:12 | Invasive Diagnostic Lab Proc ---
Name: Vicky Madden Date of Study: 03/19/2017 Date: 1950 Ht: 66.1in Medical Record#: [id number] Age: 67 Wt: 199.96lb Gender: Female BSA: 2. Order #: [id number] BMI: 32.17 Physicians Procedure Physician: Noman Anthony MD, [facility] Referring MD: Referring MD: Staff Name Position Time In Jackie Richards RN Monitor 03:13 PM Windy Kiser RN Butcher All Round 03:13 PM Indications Indication Non-Stemi Procedures Performed Procedure L HRT ARTERY/VENTRICLE ANGIO Pre-Procedure Checklist Informed consent is complete signed and on chart. H\\T\\P is on chart. ID band is on and ID verified with patient. Patient NPO for procedure The procedure was described for the patient and questions were answered. Blood Pressure: 125/89 ECG is on chart. Rhythm: Atrial Fibrillation Plan of Care Patient will tolerate the procedure without complications. Adequate level of comfort will be maintained. Hemodynamics will remain stable Patient will recover from procedure without complications. Respiratory function will be maintained. Cardiac rhythm will remain stable. Patient temperature will be maintained. Patient and/or family have verbalized understanding of the procedure. Patient Education Chief Complaint/Reason for Test: Cardiac Cath Developmental Category: Geriatric (65+ years) Developmentally Appropriate for Age: Yes Learning Barriers: None Education Needs: Procedure Education Method: Verbal Information Taught: Cardiac Cath Educational Evaluation: Able to repeat information Intravenous Access Time IV Size Location DC'd Fluid/Drip Rate Units RN 20g 1 1/4" Patent On Arrival Lt Hand 20g 1 1/4" Patent On Arrival Lt Antecubital Allergies Lipitor ELECTRODE PADS atorvastatin plastic neosporin, tape bacitracin polymyxin B Neomycin Vital Signs Time BP (mmHg) HR (bpm) O2 Sat. RR (bpm) LOC 03:12 PM / % 5 = Fully awake and oriented or at pre-proc level 03:16 PM 124 / 80 104 88 % 03:19 PM 125 / 89 82 94 % 19 03:22 PM 107 / 72 97 92 % 20 03:23 PM 99 / 65 86 92 % 19 03:24 PM 111 / 78 101 97 % 20 03:25 PM 123 / 73 86 97 % 20 03:28 PM 128 / 58 96 95 % 28 03:31 PM 111 / 66 106 95 % 22 03:34 PM 101 / 83 91 96 % 17 03:37 PM 123 / 81 106 98 % 29 03:38 PM 118 / 62 100 95 % 24 03:40 PM 102 / 74 104 96 % 20 03:43 PM 104 / 64 91 97 % 19 03:46 PM 107 / 74 111 94 % 24 03:49 PM 118 / 65 97 95 % 15 03:52 PM 127 / 79 91 96 % 20 Procedural Medications Time Medication Dose Units Method Given By 03:12 PM Oxygen 2 L/min nasal cannula Windy Kiser RN 03:17 PM Versed 2 mg Intravenous Windy Kiser RN 03:17 PM Fentanyl 50 mcg Intravenous Windy Kiser RN 03:21 PM Oxygen 8 L/min Oxy Mask Windy Kiser RN 03:22 PM Oxygen 15 L/min Oxy Mask Windy Kiser RN 03:27 PM Oxygen 10 L/min Oxy Mask Windy Kiser RN 03:33 PM Lidocaine 2% 20 ml Subcutaneous Noman Anthony MD, [facility] ASA Classification: CLASS II- Mild systemic disease (i.e. well-controlled diabetes, hypertension, asthma, cigarette smoking) Ngozi Score Preprocedure Postprocedure Activity 2- Moves 4 extremities sustained head lift Activity 2- Moves 4 extremities sustained head lift Circulation 2- SBP +/= 20 points of pre-anesthetic level Circulation 2- SBP +/= 20 points of pre-anesthetic level Consciousness 2- Awake and alert oriented x 3 Consciousness 2- Awake and alert oriented x 3 O2 Saturation 2- Able to maintain O2 satruation of 92% on room air O2 Saturation 2- Able to maintain O2 satruation of 92% on room air Respiratory 2- Able to deep breathe and cough well Respiratory 2- Able to deep breathe and cough well Total Score 10 Total Score 10 Contrast Agent: Isovue Diagnostic Contrast: 61 ml Total Contrast: 61 ml Fluoro Dose: 188 mGy Procedure Log Time Note Enter By 02:46 PM Pressure channel 1 zeroed. 03:11 PM Pt arrived to orthodontic laboratory technician 2 at 15:11 scoates 03:12 PM Physician arrived 15:11 scoates 03:12 PM ASA Class CLASS II- Mild systemic disease (i.e. well-controlled diabetes, hypertension, asthma, cigarette smoking) scoates 03:12 PM Meet and greet completed scoates 03:12 PM Sign in performed according to hospital policy. scoates 03:12 PM Procedure start 15:12 scoates 03:12 PM Time: 15:12 Oxygen on at 2 L/min per nasal cannula by Windy Kiser RN scoates 03:12 PM Time: 15:12 Patient comfortable and pain free: Yes scoates 03:12 PM Time: 15:12LOC: 5 = Fully awake and oriented or at pre-proc level scoates 03:12 PM Patient charges- Angio tray pack, Navilyst 3mm J, Pulse Oximetry and ACIST tubing and transducer scoates 03:12 PM Case Delayed no, inpatient scoates 03:13 PM Hair removed from procedure site in procedure lab using clippers. Bilateral groin prepped with Chloraprep by Ginny Bonilla (R), safety strap applied then patient was draped. Skin intact. scoates 03:13 PM Jackie Richards RN Position: Monitor Time in: 15:13 scoates 03:13 PM Windy Kiser RN Position: Butcher All Round Time in: 15:13 scoates 03:15 PM Vitals capture started with the following parameters, Patient=Adult, Interval=3 min, Initial Qajheqvv=433 mmHg, Deflation Rate=5 mmHg, Cuff placed on Right Arm 03:16 PM WZ=421 bpm, XCIC=370/80 mmhg, SpO2=88.0 %, Comment=afib 03:17 PM Time: 15:17 Versed 2 mg Intravenous Given by Windy Kiser RN scoates 03:18 PM Time: 15:17 Fentanyl 50 mcg Intravenous Given by Windy Kiser RN scoates 03:18 PM Clinical Presentation: Non-STEMI scoates 03:19 PM HR=82 bpm, BVPN=871/89 mmhg, SpO2=94 %, Resp=19 B/min 03:22 PM Time: 15:21 Oxygen on at 8 L/min per Oxy Mask by Windy Kiser RN scoates 03:22 PM HR=97 bpm, PPDK=835/72 mmhg, SpO2=92 %, Resp=20 B/min 03:22 PM NIBP STAT measurement started. 03:22 PM Time: 15:22 Oxygen on at 15 L/min per Oxy Mask by Windy Kiser RN scoates 03:23 PM HR=86 bpm, NIBP=99/65 mmhg, SpO2=92 %, Resp=19 B/min 03:23 PM NIBP STAT measurement started. 03:24 PM VI=753 bpm, EANB=151/78 mmhg, SpO2=97 %, Resp=20 B/min 03:25 PM HR=86 bpm, NANO=952/73 mmhg, SpO2=97 %, Resp=20 B/min 03:28 PM Time: 15:27 Oxygen on at 10 L/min per Oxy Mask by Windy Kiser RN scoates 03:28 PM HR=96 bpm, QKYK=453/58 mmhg, SpO2=95 %, Resp=28 B/min 03:31 PM ZN=952 bpm, YLZG=061/66 mmhg, SpO2=95 %, Resp=22 B/min 03:32 PM Time out performed according to hospital policy scoates 03:33 PM Time: 15:33 20 ml Lidocaine 2% to left groin Subcutaneous Given by Noman Anthony MD, [facility] scoates 03:34 PM HR=91 bpm, OMIY=104/83 mmhg, SpO2=96 %, Resp=17 B/min 03:34 PM Unsuccessful access attempt # 1 into the left Femoral artery. Manual pressure applied to achieve hemostasis.. scoates 03:37 PM Access obtained by percutaneous puncture. 5Fr 10cm Terumo [place] sheath placed in left Femoral artery. [id number] scoates 03:37 PM IX=743 bpm, VVYK=764/81 mmhg, SpO2=98 %, Resp=29 B/min 03:38 PM NIBP STAT measurement started. 03:38 PM Pressure channel 1 zeroed. 03:38 PM 5Fr FL 4 catheter inserted over the wire [facility] scoates 03:38 PM wire removed scoates 03:38 PM SB=373 bpm, OPOI=674/62 mmhg, SpO2=95 %, Resp=24 B/min 03:38 PM LCA angiography performed in multiple views. scoates 03:39 PM Lesion found in Mid Circumflex. Pre Stenosis: 20 Pre GEREMIAS Flow: scoates 03:39 PM Lesion found in Mid LAD. Pre Stenosis: 40 Pre GEREMIAS Flow: scoates 03:39 PM Lesion found in Proximal LAD. Pre Stenosis: 30 Pre GEREMIAS Flow: scoates 03:40 PM DO=003 bpm, QYKR=207/74 mmhg, SpO2=96.0 %, Resp=20 B/min, Comment=afib 03:40 PM Catheter removed scoates 03:40 PM 5Fr FR 4 catheter inserted over the wire DNC scoates 03:40 PM wire removed scoates 03:40 PM RCA angiography performed in multiple views. scoates 03:41 PM Coronary Dominance: right scoates 03:41 PM Lesion found in Proximal RCA. Pre Stenosis: 30 Pre GEREMIAS Flow: scoates 03:42 PM Catheter removed scoates 03:42 PM 5Fr Pigtail catheter inserted over the wire DN scoates 03:43 PM Recorded Pressure: LV, HR=96, Condition=Condition 1 (Left Ventricle) LV 97/6/24 03:43 PM HR=91 bpm, JWPX=611/64 mmhg, SpO2=97 %, Resp=19 B/min 03:43 PM Recorded Pressure: LV, Ao, PI=561, Condition=Condition 1 (Left Ventricle) LV 110/10/46, (Aorta) Ao 90/58/71 03:44 PM Catheter selectively placed in left ventricle scoates 03:44 PM Bolus angiogram of left Ventricle complete: 10 ml/sec for a total of 20 mls scoates 03:44 PM Bolus angiogram of left Femoral complete: 4 ml/sec for a total of 7 mls scoates 03:44 PM Procedure completed at 15:44 scoates 03:45 PM Sign out completed: Radiation Dose 188 mGy Fluoro Time: 1.0 Isovue 370 - 200ml contrast 61 ml given by Noman Anthony MD, [facility]. Complications: NoneCardiac Rehab Consult needed: NoConfirmed administered medications: Yes scoates 03:45 PM Isovue 370 - 200ml,1 Bottle(s) used. scoates 03:46 PM FB=065 bpm, RZAL=875/74 mmhg, SpO2=94.0 %, Resp=24 B/min, Comment=afib 03:46 PM Arterial sheath pulled, Mynx closure device used and was Successful [id number] S/N. scoates 03:47 PM Post ECG Atrial Fibrillation scoates 03:48 PM Post Blood Pressure 107/74 scoates 03:49 PM HR=97 bpm, UFOR=089/65 mmhg, SpO2=95.0 %, Resp=15 B/min, Comment=afib 03:49 PM 15:48 Post Pulses Bilateral DP \\T\\ PT 1+ scoates 03:51 PM Information taught Cardiac Cath and Mynx scoates 03:51 PM Education needs Procedure, Plan of Care, and Responsibilities of Patient in Care scoates 03:51 PM Learning barriers :None scoates 03:51 PM Education Methods Verbal scoates 03:51 PM Education evaluation Able to repeat information scoates 03:51 PM Site status No bleeding/hematoma - Lt Groin as reported by Ginny Bonilla RT (R) at 15:51 scoates 03:52 PM Opsite applied scoates 03:52 PM Plavix, Effient or Brilinta given No scoates 03:52 PM HR=91 bpm, TNMN=404/79 mmhg, SpO2=96.0 %, Resp=20 B/min, Comment=afib 03:59 PM Delay to floor No scoates 03:59 PM Family placed in consult room. scoates 03:59 PM Complications: None scoates 03:59 PM Report given to Maxine FITZGERALD Pt taken to 2N Room #7. 15:59 scoates 04:02 PM Proximal Left Anterior Descending Coronary Artery with 30% stenosis. If graft is supplying this territory, 0 % stenosis. scoates 04:02 PM Mid/Distal Left Anterior Descending Coronary Artery and diagonal branches with 40% stenosis. If graft is supplying this area, 0 % stenosis scoates 04:02 PM Circumflex, Obtuse Marginal, Left Posterior Descending, and Left Posterolateral Coronary Arteries with 20 % stenosis. If graft is supplying this area, 0 % stenosis scoates 04:02 PM Right Coronary, Right Posterior Descending Arteries with Right Posterolateral and Acute Marginal branches with 30 % stenosis. If graft is supplying this area, 0 % stenosis scoates Complications Complication None None Hemodynamics Pressures Site Systolic/A Wave Diastolic/V Wave Mean LV 97 6 24 LV 110 10 46 AO 90 58 71 Post Procedure Information Blood Pressure: 107/74 mmHg Rhythm: Atrial Fibrillation Post procedural instructions were given Closure Device Time Device Success/Fail 03/19/2017 3:55:00 PM MynxGrip Successful Site Checks Time Location Status Staff Sheath In? Note 03:51 PM Lt Groin No bleeding/hematoma Ginny Bonilla RT (R) Pulses Time Site Pre-Procedure Post-Procedure Note Bilateral DP \\T\\ PT 2+ Bilateral radial 2+ 3:48:00 PM Bilateral DP \\T\\ PT 1+ Updated by Jackie Del Cid RN on 03/19/2017 4:04:08 PM electronically signed on 03/19/2017 4:05:14 PM with status of Final
--- NOTE | 2017-03-19 16:33 | Invasive Diagnostic Lab ---
Name: Vicky Madden Date of Study: 03/19/2017 Date: 1950 Ht: 167.9 cm /66.1 in Medical Record#: [id number] Age: 67 Wt: 90.7 kg / 199.96 lb Account/Order#: [id number] Gender: Female BSA: 2. Order #: [id number] Fluoro Dose: 188 mGy BMI: 32.17 Procedure Physician: Noman Anthony MD, FACC Referring MD: Referring MD: Procedures Performed: LEFT HEART CATH Iliofemoral angiography Indications: Non-Stemi Impressions: The left ventricle is normal and mildly abnormal contractility EF 40-45% There is mild three vessel coronary artery disease. Stent placed from a prior procedure in the Mid LAD is is patent. Stent placed from a prior procedure in the Proximal RCA is is patent. Recommendations: Optimal medical therapy of patient's disease. Aggressive risk factor modification. History/Risk Factors: CHF CAD DIALYSIS RENAL DISEASE Diabetes Hypertension Procedure Access obtained in the left Femoral artery by percutaneous puncture. Iliofemoral angiography via sheath. Complications: None, None Contrast: Isovue 61ml Closure Device: MynxGrip Hemodynamics: Pressures Site Systolic/ A Wave Diastolic/ V Wave End Diastolic/ Mean HR LV 97 6 24 96 LV 110 10 46 110 AO 90 58 71 119 LV Ventriculography Ejection Method: LV Gram Ejection Fraction: 40-45% Poor quality study Wall Motion: YU Anterobasal Mild hypokinesis Anterolateral Mild hypokinesis Apical: Mild hypokinesis Inferoapical Mild hypokinesis Inferobasal Mild hypokinesis Coronary Dominance: right Lesion Findings/Interventions * Left Main Coronary Artery The LMCA is angiographically free of disease. * Left Anterior Descending There is a 30% stenosis in the Proximal LAD. Patent proximal and mid stent. There is a 40% stenosis in the Mid LAD. * Circumflex There is a 20% stenosis in the Mid Circumflex. Patent mid stent. * Right Coronary Artery There is a 30% stenosis in the Proximal RCA. Visualized portion of left iliofemoral artery without significant disease. Updated by Jackie Del Cid RN on 03/19/2017 4:03:40 PM Noman Anthony MD, FACC electronically signed on 03/19/2017 4:26:17 PM with status of Final
[2017-03-20 05:29] LABS: Basophils % 0.4 %; Hemoglobin 9.9 g/dL (11.5-15.4); Immature Granulocytes % 1.1 % (0-4); Lymphocytes # 1.3 K/mcL (0.6-4.6); Lymphocytes % 28.2 %; Mean Corpuscular HGB Conc 30.9 g/dL (31.6-35.5); Mean Corpuscular Hemoglobin 30.1 pg (28.0-33.3); Mean Corpuscular Volume 97.3 fL (83.0-100.0); Mean Platelet Volume 9.6 fL (9.4-12.4); Monocytes # 0.5 K/mcL (0.0-1.3); Monocytes % 9.8 %; Neutrophils # 2.8 K/mcL (1.6-8.9); Platelet Count 152 K/mcL (140-400); Red Blood Count 3.29 M/mcL (3.82-4.97); Red Cell Distribution Width 16.6 % (11.5-14.5); Segmented Neutrophils % 60.5 %
[2017-03-20 05:31] LABS: INR 1.2; Prothrombin Time 13.4 Seconds (9.4-12.1)
[2017-03-20 05:41] LABS: Calcium 8.3 mg/dL (8.6-10.8); Magnesium 1.9 mg/dL (1.6-2.6); Phosphorous 5.5 mg/dL (2.3-4.7); Potassium 4.8 mEq/L (3.5-4.5)
[2017-03-20 06:19] LABS: Activated Partial Thrombo Time 63.1 Seconds (26.0-36.0)
[2017-03-20] MEDS: Furosemide 40 MG TABLET PO SCH ×2 (08:33→22:07)
[2017-03-20] MEDS: Isosorbide MONOnitrate (24 HR) 60 MG TAB.ER.24H PO SCH (08:33)
[2017-03-20] MEDS: hydrALAZINE 25 MG TABLET PO SCH ×3 (08:34→22:08)
[2017-03-20] MEDS: Aspirin Enteric Coated 81 MG Tablet PO SCH (08:34)
[2017-03-20] MEDS: Gabapentin 100 MG CAPSULE PO SCH ×3 (08:34→22:08)
[2017-03-20] MEDS: Insulin LISPRO 300 UNITS/3 ML VIAL SQ SCH ×4 (08:36→22:12)
--- NOTE | 2017-03-20 08:39 | Nephrology Progress Note ---
Date of Encounter: 03/20/17 Time of Encounter: 08:15 - Assessment and Plan (1) ESRD (end stage renal disease) on dialysis Current Visit: Yes Status: Acute S/P LHC-No significant CAD amenable to revascularization. Afib, controlled AR. HD tomorrow, keeping MWF schedule. Subjective Interval history: Sitting up in bed, eating breakfast. Denies CP . No new complaints. Objective - Vital Signs Vital signs: Vital Signs Temp Pulse Resp BP Pulse Ox 03/20/17 07:11 98.6 F 103 16 94/73 93 03/20/17 04:30 98.0 F 96 19 117/80 90 03/20/17 03:35 91 03/20/17 00:27 98.1 F 103 20 100/72 91 03/19/17 23:25 99 03/19/17 22:55 98 F 18 115/68 03/19/17 22:40 126/73 03/19/17 22:25 107/64 03/19/17 22:10 121/63 03/19/17 21:55 118/70 03/19/17 21:40 120/73 03/19/17 21:25 99/56 03/19/17 21:10 92/51 03/19/17 20:55 97/55 03/19/17 20:40 82/44 03/19/17 20:25 78/46 03/19/17 20:10 78/50 03/19/17 19:55 83/52 03/19/17 19:40 104/62 03/19/17 19:25 97.8 F 20 112/50 03/19/17 19:15 91 03/19/17 16:33 98.4 F 97 17 110/83 95 03/19/17 16:20 98.4 F 97 17 110/83 95 03/19/17 12:39 83/64 03/19/17 11:22 97.8 F 94 16 83/64 92 03/19/17 11:12 97.8 F 94 16 83/64 92 03/19/17 09:45 117 Intake and Output 03/19/17 03/20/17 03/20/17 23:59 07:59 15:59 Intake Total 840 / 840 0 / 0 Output Total 1600 / 1600 Balance -760 / -760 0 / 0 Intake: IV Fluids 0 / 0 Heparin 25,000 UNIT/500 0 / 0 ML D5W 25,000 unit In 500 ml @ 12 UNIT/KG/HR 21. 664 mls/hr IVC .Q23H5M DELIO Rx#:[id number] Oral 240 / 240 Intake, Rinseback and 600 / 600 Flushes Output: Urine 0 / 0 Total Dialysis (HD) 1600 / 1600 Output Other: Meal Dinner Percent of Meal Consumed 100% # Urine Diapers 1 Weight 90.6 kg Blood Glucose* 157 102 Hemodialysis Net Fluid 1000 Removed (mL) Patient Weight 03/20/17 23:59 Weight 90.6 kg - General Appearance General appearance: Present: well-developed, well-nourished, appears started age EENT: Present: mucous membranes moist Neck: Present: no JVD Respiratory: Present: clear Cardiology: Present: no edema, irregular rhythm Gastrointestinal: Present: normoactive bowel sounds, no tenderness Integumentary: Present: warm and dry Neurologic: Present: alert and oriented x3 Psychiatric: Present: mood/affect appropriate, cooperative - Lab 03/20/17 05:13 03/20/17 05:13 Most recent lab results Calcium 8.3 mg/dL (8.6-10.8) L 03/20/17 05:13 Phosphorus 5.5 mg/dL (2.3-4.7) H 03/20/17 05:13 Magnesium 1.9 mg/dL (1.6-2.6) 03/20/17 05:13 - VTE Documentation of Mechanical Device: Graduated compression elastic hosiery Consult Discharge Plan - Plan Referrals: Eleazar Calhoun MD [Primary Care Provider] -
--- NOTE | 2017-03-20 10:40 | Internal Med Progress Note ---
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 Vicky Madden is a 67 year old female whose care has been taken over from the hospitalist team. Patient presented with the A. fib with RVR. Cardiology was consulted. Patient had echocardiogram and left heart catheter. Echocardiogram showed ejection fraction 35-40%. However left heart catheter showed ejection fraction in the range of 40-45% with patent LAD and RCA previous stents. Patient was also noted to be in acute systolic congestive heart failure and has been aggressively treated with Lasix. Patient has underlying ESRD and nephrology is following her for hemodialysis. The sugars are stable to this point. Patient heparin has been stopped and Coumadin has been started and since her rate is not controlled I will stop her Coreg and add Lopressor. She is already off her Norvasc. Once her rate is better controlled she can be discharged. - Constitutional Vitals: Temp Pulse Resp BP Pulse Ox 98.6 F 106 18 94/73 92 03/20/17 07:11 03/20/17 08:40 03/20/17 08:40 03/20/17 08:40 03/20/17 08:40 General appearance: Present: cooperative, A&O X 3, pleasant, no acute distress, obese, answers questions appropriately Internal Medicine: Result - Labs CBC & Chem 7: 03/20/17 05:13 03/20/17 05:13 Labs: Short CBC 03/20/17 Range/Units 05:13 WBC 4.6 (4.3-11.1) K/mcL Hgb 9.9 L (11.5-15.4) g/dL Hct 32.0 L (35.3-44.9) % Plt Count 152 (140-400) K/mcL Neutrophils # 2.8 (1.6-8.9) K/mcL BMP 03/20/17 05:13 Sodium 138 Potassium 4.8 H Chloride 101 Carbon Dioxide 29 BUN 35 H D Creatinine 4.77 H Glucose 93 Calcium 8.3 L - ABG Interpretation ABG results: PT/INR, D-dimer PT 13.4 Seconds (9.4-12.1) H 03/20/17 05:13 - VTE Documentation of Mechanical Device: Graduated compression elastic hosiery Consult Discharge Plan - Plan Referrals: Noman Anthony MD [Partnered Physician] - 04/27/17 8:35 am Eleazar Calhoun MD [Primary Care Provider] - 04/05/17 11:00 am
[2017-03-20] MEDS ORDERED: *HR* Warfarin 5 MG TABLET PO ONE (18:00)
[2017-03-20] MEDS ORDERED: Warfarin perPT PO PRN (18:00)
[2017-03-21 04:36] LABS: INR 1.2; Prothrombin Time 13.1 Seconds (9.4-12.1)
--- NOTE | 2017-03-21 08:56 | Nephrology Progress Note ---
Date of Encounter: 03/21/17 Time of Encounter: 08:54 - Assessment and Plan (1) ESRD (end stage renal disease) on dialysis Current Visit: Yes Status: Acute Patient will undergo dialysis today. She does have a history of secondhand smoke exposure. I am going to have her check pulmonary function studies. (2) Atrial fibrillation with rapid ventricular response Current Visit: Yes Status: Acute (3) CAD in [place] artery Current Visit: Yes Status: Acute Subjective Interval history: Patient reports she is feeling better. She does continue to have a cough with some sputum production. She continues to have orthopnea as well as some exertional dyspnea. Heart rate is better controlled. She is scheduled for her usual dialysis today. Objective - Vital Signs Vital signs: Vital Signs Temp Pulse Resp BP Pulse Ox 03/21/17 07:00 94 03/21/17 06:58 97.4 F L 98 17 105/62 94 03/21/17 03:53 97.7 F 90 15 104/70 91 03/20/17 23:43 98.0 F 78 15 102/67 92 03/20/17 19:05 98.5 F 97 16 96/56 93 03/20/17 16:00 98.1 F 89 18 96/69 96 03/20/17 14:06 98 16 102/74 93 03/20/17 11:30 109 20 95 03/20/17 10:59 98.4 F 107 16 88/56 93 Intake and Output 03/20/17 03/21/17 03/21/17 23:59 07:59 15:59 Intake Total 340 / 340 Balance 340 / 340 Intake: Oral 340 / 340 Other: Meal Dinner Percent of Meal Consumed 100% # Voids 1 Weight 91.1 kg Blood Glucose* 254 85 - General Appearance Exam: Patient is alert and oriented. She is in no acute distress. Lungs coarse rales in the bases otherwise clear. Heart irregular rate and rhythm. Ventricular rate is in the 90s. Abdomen is benign. There is minimal lower extremity swelling. There is an AV fistula in the right upper extremity. - Lab 03/20/17 05:13 03/20/17 05:13 Most recent lab results Calcium 8.3 mg/dL (8.6-10.8) L 03/20/17 05:13 Phosphorus 5.5 mg/dL (2.3-4.7) H 03/20/17 05:13 Magnesium 1.9 mg/dL (1.6-2.6) 03/20/17 05:13 - VTE Documentation of Mechanical Device: Graduated compression elastic hosiery Consult Discharge Plan - Plan Referrals: Eleazar Calhoun MD [Primary Care Provider] -
[2017-03-21] MEDS ORDERED: 0.9 % Sodium Chloride 250 ML IVC PRN (08:57)
[2017-03-21] MEDS: Insulin LISPRO 300 UNITS/3 ML VIAL SQ SCH ×4 (09:31→20:39)
[2017-03-21] MEDS: Furosemide 40 MG TABLET PO SCH ×2 (09:32→20:33)
[2017-03-21] MEDS: Isosorbide MONOnitrate (24 HR) 60 MG TAB.ER.24H PO SCH (09:32)
[2017-03-21] MEDS: hydrALAZINE 25 MG TABLET PO SCH ×2 (09:32→14:35)
[2017-03-21] MEDS: Aspirin Enteric Coated 81 MG Tablet PO SCH (09:32)
[2017-03-21] MEDS: Gabapentin 100 MG CAPSULE PO SCH ×3 (09:32→20:33)
[2017-03-21] MEDS ORDERED: 0.9 % Sodium Chloride 1,000 ML ONE (14:04)
[2017-03-21] MEDS: Cholecalciferol (D-3) 1,000 UNIT TABLET PO SCH (14:35)
[2017-03-21] MEDS ORDERED: *HR* Warfarin 5 MG TABLET PO ONE (18:00)
--- NOTE | 2017-03-21 20:07 | Internal Med Progress Note ---
Date of Encounter: 03/22/17 Time of Encounter: 20:04 - Assessment and plan (1) Acute systolic (congestive) heart failure Current Visit: Yes Status: Acute (2) Atrial fibrillation with rapid ventricular response Current Visit: Yes Status: Acute (3) Diabetes Current Visit: Yes Status: Chronic Qualifiers: Diabetes mellitus type: type 2 Diabetes mellitus complication status: with unspecified complications Diabetes mellitus custodial insulin use: with custodial use Qualified Code(s): E11.8 - Type 2 diabetes mellitus with unspecified complications; Z79.4 - intermodal dispatcher (current) use of insulin (4) Stented coronary artery Current Visit: Yes Status: Acute (5) ESRD (end stage renal disease) on dialysis Current Visit: Yes Status: Acute - Subjective Interval history: Mrs. Vicky Madden is a 67 year old female whose care has been taken over from the hospitalist team. Patient presented with the A. fib with RVR. Cardiology was consulted. Patient had echocardiogram and left heart catheter. Echocardiogram showed ejection fraction 35-40%. However left heart catheter showed ejection fraction in the range of 40-45% with patent LAD and RCA previous stents. Patient was also noted to be in acute systolic congestive heart failure and has been aggressively treated with Lasix. Patient has underlying ESRD and nephrology is following her for hemodialysis. The sugars are stable to this point. Patient heparin has been stopped and Coumadin has been started and since her rate is not controlled I will stop her Coreg and add Lopressor. She is already off her Norvasc. Once her rate is better controlled she can be discharged. 7/5 overall seems better. Her global position system technician is checking pulmonary function test tomorrow as she has chronic cough which is suspected due to secondary to secondhand smoking. She seems euvolemic now breathing well and if her cough persist we can make some adjustment in her medication or give her inhaler for when necessary use. She is already on Coumadin and her rate is controlled. Blood pressure is borderline and therefore I will not increase Lopressor any further. However we can stop some of her anti-hypertensive medication. planned to be discharged home tomorrow. - Constitutional Vitals: Temp Pulse Resp BP Pulse Ox 98.4 F 95 20 139/74 92 03/21/17 18:50 03/21/17 15:00 03/21/17 18:50 03/21/17 18:50 03/21/17 11:40 General appearance: Present: cooperative, A&O X 3, pleasant, no acute distress, obese, answers questions appropriately - Head Head exam: Present: atraumatic, normocephalic - Eye Eye exam: Present: PERRL, conjuntiva pink, sclera anicteric Pupils: Present: PERRL - Neck Neck exam general surgery: Present: supple, trachea midline. Absent: lymphadenopathy - Respiratory Respiratory exam: Present: CTAB. Absent: accessory muscle use, rales, rhonchi, wheezes - Cardiovascular Cardiovascular exam: Present: RRR, +S1, +S2. Absent: diastolic murmur, gallop, rubs, systolic murmur - GI/Abdominal GI/Abdominal exam: Present: normal bowel sounds, soft, no peritoneal signs. Absent: distended, tenderness - Extremities Exam Extremities exam: Present: warm, radial pulses palpable and symetrical. Absent : calf tenderness, cyanotic, pedal edema - Neurological Exam Neurological exam: Present: CN II-XII intact, oriented X3, no focal deficits. Absent: pronater drift, facial droop, speech deficit - Skin Skin exam: Present: dry, intact Internal Medicine: Result - Labs CBC & Chem 7: 03/20/17 05:13 03/20/17 05:13 - ABG Interpretation ABG results: PT/INR, D-dimer PT 13.1 Seconds (9.4-12.1) H 03/21/17 04:13 - VTE Documentation of Mechanical Device: Graduated compression elastic hosiery Consult Discharge Plan - Plan Referrals: Noman Anthony MD [Partnered Physician] - 04/27/17 8:35 am Eleazar Calhoun MD [Primary Care Provider] - 04/05/17 11:00 am
[2017-03-22 05:55] LABS: INR 1.3; Prothrombin Time 13.7 Seconds (9.4-12.1)
--- NOTE | 2017-03-22 08:40 | Nephrology Progress Note ---
Date of Encounter: 03/22/17 Time of Encounter: 08:38 - Assessment and Plan (1) ESRD (end stage renal disease) on dialysis Current Visit: Yes Status: Acute Patient will continue undergo dialysis every Sunday. I would recommend leaving the patient in the hospital today and getting the results of the pulmonary function studies and determining if she would benefit from bronchodilator therapy. She can have her dialysis tomorrow morning and then hopefully be discharged home. (2) Atrial fibrillation with rapid ventricular response Current Visit: Yes Status: Acute (3) CAD in sycuan artery Current Visit: Yes Status: Acute Subjective Interval history: The patient continues to have a cough and some shortness of breath. She underwent pulmonary function studies earlier today. Results are pending. She received dialysis yesterday. She remains in A. fib with a ventricular rate of 90s to low 100s. Objective - Vital Signs Vital signs: Vital Signs Temp Pulse Resp BP Pulse Ox 03/22/17 07:35 98.6 F 94 16 135/81 94 03/22/17 04:31 98 F 94 15 133/77 92 03/22/17 00:16 98.1 F 83 16 118/82 94 03/21/17 20:45 98.5 F 106 18 115/65 94 03/21/17 18:50 98.4 F 20 139/74 03/21/17 18:45 131/68 03/21/17 18:30 134/92 03/21/17 18:15 131/55 03/21/17 18:00 136/59 03/21/17 17:45 145/77 03/21/17 17:30 132/77 03/21/17 17:15 129/69 03/21/17 17:00 134/69 03/21/17 16:45 125/68 03/21/17 16:30 142/70 03/21/17 16:15 126/66 03/21/17 16:00 110/64 03/21/17 15:45 117/50 03/21/17 15:30 97.6 F 18 118/58 03/21/17 15:00 95 03/21/17 11:40 98.1 F 95 18 94/63 92 03/21/17 11:28 98 F 88 18 94/63 95 03/21/17 11:00 92 Intake and Output 03/21/17 03/22/17 03/22/17 23:59 07:59 15:59 Intake Total 200 / 200 0 / 0 Output Total 2600 / 2600 Balance -2400 / -2400 0 / 0 Intake: Oral 200 / 200 0 / 0 Output: Urine 0 / 0 Total Dialysis (HD) 2600 / 2600 Output Other: Meal Dinner Percent of Meal Consumed 90% # Voids 2 Weight 89.1 kg Blood Glucose* 98 111 Hemodialysis Net Fluid 2000 Removed (mL) Patient Weight 03/22/17 23:59 Weight 89.1 kg - General Appearance Exam: Patient is alert and oriented. She is in no acute distress. Heart irregular rate and rhythm consistent with atrial fibrillation. Lungs diminished breath sounds. She does have occasional rhonchi as well as some expiratory wheezing. There is minimal lower extremity swelling. There is an AV fistula in the right upper extremity. - Lab 03/20/17 05:13 03/20/17 05:13 Most recent lab results Calcium 8.3 mg/dL (8.6-10.8) L 03/20/17 05:13 Phosphorus 5.5 mg/dL (2.3-4.7) H 03/20/17 05:13 Magnesium 1.9 mg/dL (1.6-2.6) 03/20/17 05:13 - VTE Documentation of Mechanical Device: Graduated compression elastic hosiery Consult Discharge Plan - Plan Referrals: Noman Anthony MD [Partnered Physician] - 04/27/17 8:35 am Eleazar Calhoun MD [Primary Care Provider] - 04/05/17 11:00 am
[2017-03-22] MEDS: Aspirin Enteric Coated 81 MG Tablet PO SCH (08:50)
[2017-03-22] MEDS: Isosorbide MONOnitrate (24 HR) 60 MG TAB.ER.24H PO SCH (08:50)
[2017-03-22] MEDS: Gabapentin 100 MG CAPSULE PO SCH ×2 (08:51→15:47)
[2017-03-22] MEDS: Furosemide 40 MG TABLET PO SCH (08:51)
[2017-03-22] MEDS: Insulin LISPRO 300 UNITS/3 ML VIAL SQ SCH ×2 (08:51→11:52)
[2017-03-22] MEDS ORDERED: Metoprolol XL (24 HR) Succ 50 MG TAB.ER.24H PO SCH (09:00)
[2017-03-22 15:46] VITALS: BP 124/75
--- NOTE | 2017-03-22 15:46 | Discharge Summary ---
Date of Encounter: 03/22/17 Time of Encounter: 15:44 - Discharge Diagnosis (1) Acute systolic (congestive) heart failure Priority: Primary Status: Acute (2) Atrial fibrillation with rapid ventricular response Priority: Primary Status: Acute (3) Diabetes Priority: Secondary Status: Chronic Qualifiers: Diabetes mellitus type: type 2 Diabetes mellitus complication status: with unspecified complications Diabetes mellitus exterminator termite insulin use: with exterminator termite use Qualified Code(s): E11.8 - Type 2 diabetes mellitus with unspecified complications; Z79.4 - exterminator termite (current) use of insulin (4) Stented coronary artery Priority: Secondary Status: Acute (5) ESRD (end stage renal disease) on dialysis Priority: Secondary Status: Acute (6) COPD (chronic obstructive pulmonary disease) Priority: Secondary Status: Acute Qualifiers: Qualified Code(s): J44.9 - Chronic obstructive pulmonary disease, unspecified - Discharge Medications Prescriptions: Albuterol Sulfate [Albuterol Inhaler] 2 puff IH Q6HR #1 hfa.aer.ad Metoprolol XL (24 HR) Succ [Toprol Xl] 100 mg PO DAILY #30 tab.er.24h Warfarin perPT [Coumadin perPT] 5 each PO DAILY@1800 PRN #30 each PRN Reason: See Comments Home Medications: Cholecalciferol (Vitamin D3) [Vitamin D3] 2,000 unit PO WETHFR 03/17/17 [History ] Clopidogrel [Plavix] 75 mg PO DAILY 03/17/17 [History] Furosemide [Lasix] 60 mg PO BID 03/17/17 [History] Gabapentin [Neurontin] 100 mg PO TID 03/17/17 [History] Hydralazine HCl 50 mg PO TID 03/17/17 [History] Insulin Glargine,Hum.rec.anlog [Lantus Solostar] 18 - 24 unit SQ BID 03/17/17 [ History] Insulin LISPRO [Humalog] 4 - 16 unit SQ TIDWM 03/17/17 [History] Isosorbide MONOnitrate (24 HR) [Imdur] 60 mg PO DAILY 03/17/17 [History] Acetaminophen [Tylenol] 650 mg PO Q6HR PRN #0 tablet 03/22/17 [Rx] Albuterol Sulfate [Albuterol Inhaler] 2 puff IH Q6HR #1 hfa.aer.ad 03/22/17 [Rx] Darbepoetin [Aranesp] 60 mcg SQ QWEEK syringe 03/22/17 [Rx] Metoprolol XL (24 HR) Succ [Toprol Xl] 100 mg PO DAILY #30 tab.er.24h 03/22/17 [ Rx] Warfarin perPT [Coumadin perPT] 5 each PO DAILY@1800 PRN #30 each 03/22/17 [Rx] Allergies/Adverse Reactions: Allergies bacitracin [From Neosporin ([id number])] Allergy (Verified 02/20/17 19:14) Rash Neomycin [From Neosporin ([id number])] Allergy (Verified 02/20/17 19:14) Rash polymyxin B [From Neosporin ([id number]-[id number])] Allergy (Verified 02/20/17 19:14) Rash atorvastatin Adverse Reaction (Verified 03/17/17 14:40) Cramping of the Muscles plastic Allergy (Uncoded 02/20/17 19:14) Rash tape Allergy (Uncoded 02/20/17 19:14) Rash Procedures/tests Complete & Pending: Procedures Performed prior 72 hours Category Date Time Status SP PFT ba bronchodilator Routine Y 03/21/17 08:56 Completed Date of admission: 03/17/17 15:09 Primary care physician: Eleazar Calhoun MD Consults: 03/17/17 15:44 Consult to Nephrology [CONS] Routine Consulting Provider: [facility] RAISA Reason for Consult: Patient is in Stage V CKD and requires dialysis. Next dialysis due on March 19 Call Completed: Yes 03/17/17 16:56 Consult to Occupational Therapy [CONS] Routine Comment: Evaluate, develop and implement POC Reason for Consult: Patient is experiencing orthostatic hypotension and is high-risk for falls. Needs assessment for possible home assistive devices for ambulation/ADLs Consult to Physical Therapy [CONS] Routine Comment: Evaluate, develop and implement POC Reason for Consult: Patient is experiencing orthostatic hypotension and is high-risk for falls. Needs assessment for possible home assistive devices for ambulation/ADLs 03/19/17 09:15 Consult to Dialysis [CONS] ONCE 03/21/17 09:00 Consult to Dialysis [CONS] ONCE Discharging clinician: Stefan Brothers Anticipated date of discharge: 03/22/17 - Patient Status Disposition: Home, Self-Care Overall status at discharge: patient is back to baseline - Discharge Instructions Follow Up With: Noman Anthony MD [Partnered Physician] - 04/27/17 8:35 am Eleazar Calhoun MD [Primary Care Provider] - 04/05/17 11:00 am - Diet and Activity Activity: resume usual activities as tolerated Diet: advance to your usual diet, diabetic diet, low fat, low cholesterol, low salt diet, other Hospital course: Mrs. Vicky Madden is a 67 year old female who was presented with the A. fib with RVR. Cardiology was consulted. Patient was started on metoprolol and Coreg has been DC'd and initially IV heparin is started but now switched to Coumadin with INR slowly coming up. She will be continued on Plavix but aspirin has been stopped. She has been enrolled in Coumadin clinic and has a follow-up tomorrow. Her rate is well controlled now and she has been provided information option about anticoagulation and the risks associated with it. Patient had echocardiogram and left heart cath was done. Echocardiogram showed ejection fraction 35-40%. However left heart catheter showed ejection fraction in the range of 40-45% with patent LAD and RCA previous stents. Patient was also noted to be in acute systolic congestive heart failure and has been aggressively treated with Lasix. Patient has underlying ESRD and nephrology is following her for hemodialysis. The sugars are stable to this point. Since patient had cough for last 2 months and lockstitch lining setter Dr. Jordan decided to do PFTs which are reported to me showing that she has underlying COPD and therefore Proventil has been admitted. By examination she appears quite stable with clear chest and does not seem to have much cough. At this time she will be discharged home to follow up with family doctor in Coumadin clinic as well has her aircraft manager and lockstitch lining setter. - Time Spent with Patient Total time spent providing and/or coordinating discharge services: Greater than 30 minutes - Constitutional Vitals: Temp Pulse Resp BP Pulse Ox 98.1 F 88 16 144/73 94 03/22/17 11:14 03/22/17 11:57 03/22/17 11:14 03/22/17 11:14 03/22/17 11:14 General appearance: Present: cooperative, A&O X 3, pleasant, no acute distress, obese, answers questions appropriately - Head Head exam: Present: atraumatic, normocephalic - Eye Eye exam: Present: PERRL, conjuntiva pink, sclera anicteric Pupils: Present: PERRL - Neck Neck exam general surgery: Present: supple, trachea midline. Absent: lymphadenopathy - Respiratory Respiratory exam: Present: CTAB. Absent: accessory muscle use, rales, rhonchi, wheezes - Cardiovascular Cardiovascular exam: Present: RRR, +S1, +S2. Absent: diastolic murmur, gallop, rubs, systolic murmur - GI/Abdominal GI/Abdominal exam: Present: normal bowel sounds, soft, no peritoneal signs. Absent: distended, tenderness - Extremities Exam Extremities exam: Present: warm, radial pulses palpable and symetrical. Absent : calf tenderness, cyanotic, pedal edema - Neurological Exam Neurological exam: Present: CN II-XII intact, oriented X3, no focal deficits. Absent: pronater drift, facial droop, speech deficit - Skin Skin exam: Present: dry, intact - VTE Documentation of Mechanical Device: Graduated compression elastic hosiery
[2017-03-22] MEDS: Cholecalciferol (D-3) 1,000 UNIT TABLET PO SCH (15:47)
--- NOTE | 2017-03-22 15:51 | Pulmonary Function Test Report ---
[place] [id number] Test Date: 2017-03-22 Pat Name: Vicky Madden Department: Room: 2N07 Gender: Female Intensive Care Anaesthetist: DAISY MCBRIDE RRT : 1950 Requested By: Rubio Hurst Order Number: [id number] Reading MD: Rohan Priest Interpretive Statements LAB DATA Indication: Dyspnea, Cough, Second Hand Smoke Exposure Amiodarone Therapy: []Yes [x]No Previous PFT: [x]Yes []No Previous PFT date: []/[]/[2010] []NA Previous PFT results scanned: [x]Yes []No []NA Hemoglobin within last 30 days: []Yes [x]No Hemoglobin date: []/[]/[] [x]NA Hemoglobin results: []gm/dl If patient unable to complete all procedures ordered, why: PROCEDURES PERFORMED: SP.PFT before and after bronchodilator [pftp1] INTERPRETATION: Quality: Tests were acceptable and reproducible as per [place] [employer] standards Spirometry: The FEV1/FVC is normal the FVC and FEV1 are independently reduced there is no significant response to bronchodilators Flow Volume Loop: Restrictive Conclusion: A normal FEV1/FVC reduced FVC can indicate a restrictive ventilatory impairment recommend repeating pulmonary function testing to obtain lung volumes as clinically indicated the response to bronchodilators was within laboratory variability Electronically Signed On 03-22-2017 15:49:57 EDT by Rohan Priest
[2017-03-22] MEDS ORDERED: *HR* Warfarin 5 MG TABLET PO ONE (18:00)
== END 2017-03-22 18:15 | disposition home or self-care (01) | DRG 286 ==
LOC: EMEROO 13:01 → 2NNU 15:09
PROVIDERS: ADMIT Internal Medicine; ATTEND Internal Medicine Endocrinology, Diabetes & Metabolism

== ENCOUNTER 2017-06-20 06:00 | Observation (INO) ==
[2017-06-20] MEDS ORDERED: Aspirin 81 MG TAB.CHEW PO ONE (06:16)
--- NOTE | 2017-06-20 06:21 | Emergency Department Note ---
Disposition Clinical Impression: Atypical chest pain Hypertension Qualifiers: Hypertension type: unspecified Qualified Code(s): I10 - Essential (primary) hypertension Disposition: Still a Patient Condition: Undetermined Referrals: Eleazar Calhoun MD [Primary Care Provider] - Forms: ED Satisfaction Letter Time of Disposition: 06:28 Chest Pain HPI - General Chief Complaint: ED Chest Pain Stated Complaint: back pain Time Seen by Provider: 06/20/17 06:03 Source: patient, EMS Limitations: no limitations Vital Signs Reviewed: Yes Nursing Notes Reviewed: Yes - History of Present Illness HPI Narrative: Patient is a 67-year-old female who presents to [facility] ED with a chief complaint of pain between the shoulder blades that radiates into the chest. States this started this morning when she was approximately 10 minutes out from her dialysis facility. She admits to some nausea, no vomiting. No fever or chills. Past medical history significant for CHF, ESRD on dialysis, HTN, HLD, DM2, CAD with 4 stents. States she most recently had a cardiac catheterization in March of this year and did not need intervention. States one was 50% but they did not need to do anything with it. Patient states that her prior heart attacks have presented similar to this pain. Pt complaint: other (back pain radiating into chest) Onset (ago): minute(s) Duration: constant Onset: during rest Pain Location: substernal Severity: moderate Severity scale (1-10): 8 Quality: other ("Pain"- cannot characterize) Pain Radiation: none Improves with: nothing Worsens with: nothing Associated symptoms: Reports: nausea, dyspnea. Denies: vomiting, diaphoresis, fever, cough, leg swelling - Related Data Home Medications Medication Instructions Recorded Confirmed Cholecalciferol (Vitamin D3) 2,000 unit PO WETHFR 03/17/17 03/17/17 [Vitamin D3] Clopidogrel [Plavix] 75 mg PO DAILY 03/17/17 03/17/17 Furosemide [Lasix] 60 mg PO BID 03/17/17 03/17/17 Gabapentin [Neurontin] 100 mg PO TID 03/17/17 03/17/17 Hydralazine HCl 50 mg PO TID 03/17/17 03/17/17 Insulin Glargine,Hum.rec.anlog 18 - 24 unit SQ BID 03/17/17 03/17/17 [Lantus Solostar] Insulin LISPRO [Humalog] 4 - 16 unit SQ TIDWM 03/17/17 03/17/17 Isosorbide MONOnitrate (24 HR) 60 mg PO DAILY 03/17/17 03/17/17 [Imdur] Previous Rx's Medication Instructions Recorded Acetaminophen [Tylenol] 650 mg PO Q6HR PRN #0 tablet 03/22/17 Albuterol Sulfate [Albuterol 2 puff IH Q6HR #1 hfa.aer.ad 03/22/17 Inhaler] Darbepoetin [Aranesp] 60 mcg SQ QWEEK syringe 03/22/17 Metoprolol XL (24 HR) Succ [Toprol 100 mg PO DAILY #30 tab.er.24h 03/22/17 Xl] Warfarin perPT [Coumadin perPT] 5 each PO DAILY@1800 PRN #30 each 03/22/17 Allergies Allergy/AdvReac Type Severity Reaction Status Date / Time bacitracin Allergy Rash Verified 02/20/17 19:14 [From Neosporin ([id number])] Neomycin Allergy Rash Verified 02/20/17 19:14 [From Neosporin ([id number])] polymyxin B Allergy Rash Verified 02/20/17 19:14 [From Neosporin ([id number]-gsn-[id number])] atorvastatin AdvReac Cramping Verified 03/17/17 14:40 of the Muscles plastic Allergy Rash Uncoded 02/20/17 19:14 tape Allergy Rash Uncoded 02/20/17 19:14 All systems ED: reviewed and negative except as stated. Chest Pain PMH - Past Medical History Medical history: Reports: CHF, coronary artery disease, diabetes, dialysis, hypertension, myocardial infarction, renal disease, other Surgical history: Reports: angioplasty/stent, cholecystectomy, hysterectomy, orthopedic, other, other Psychiatric history: Reports: no psych history STAFF DEVELOPMENT NURSE history: Reports: no STAFF DEVELOPMENT NURSE history - Social History Smoking Status: Never smoker Alcohol use: Reports: none Drug use: Reports: none Physical Exam - General Limitations: no limitations General appearance: alert, in no apparent distress - Head Head exam: atraumatic, normocephalic, normal inspection - Eye Eye exam: Present: normal appearance, EOMI - ENT ENT exam: normal exam, normal oropharynx, mucous membranes moist - Neck Neck exam: Present: normal inspection, full ROM, trachea midline - Chest Chest inspection: Present: normal inspection, symmetric chest wall rise - Respiratory Respiratory exam: Present: normal lung sounds bilaterally - Cardiovascular Cardiovascular exam: Present: regular rate, normal rhythm, normal heart sounds - Abdominal Exam Abdominal exam: Present: soft, Non-Tender. Absent: tenderness, distention, guarding, rebound, rigidity - Extremities Exam Extremities exam: Present: normal inspection, full ROM. Absent: tenderness, pedal edema - Back Exam Back exam: Present: normal inspection, full ROM, paraspinal tenderness (thoracic ). Absent: tenderness - Neurological Exam Neurological exam: Present: alert - Psychiatric Psychiatric exam: Present: normal affect, normal mood - Skin Skin exam: Present: warm, dry, intact, normal color Course Course Narrative: Patient seen and examined. Back pain that radiates into the chest similar to her prior myocardial infarctions. Cardiopulmonary workup initiated. Patient is hypertensive systolic greater than 200. We will give some sublingual nitroglycerin and aspirin. If workup unremarkable, we will send back to dialysis. Pt will be signed out to oncoming physician Dr. James. Vital Signs Temperature 98.1 F 06/20/17 06:03 Pulse Rate 72 06/20/17 06:03 Respiratory Rate 14 06/20/17 06:03 Blood Pressure 205/89 06/20/17 06:03 O2 Sat by Pulse Oximetry 100 06/20/17 06:03 Temperature 98.1 F 06/20/17 06:03 Pulse Rate 70 06/20/17 06:29 Respiratory Rate 16 06/20/17 06:29 Blood Pressure 197/92 06/20/17 06:29 O2 Sat by Pulse Oximetry 98 06/20/17 06:29 Oxygen Delivery Oxygen Delivery Nasal Cannula Chest Pain - Medical Records Medical records reviewed: Yes I reviewed the patient's medical records. - Lab Data Lab results reviewed: Yes I reviewed the patient's lab results. - Radiology Data Radiology results reviewed: Yes I reviewed the patient's radiology results. - EKG Data EKG attestation: Yes I reviewed and interpreted this EKG. EKG results narrative: EKG done at 605 shows normal sinus rhythm with a rate of 74 bpm. First-degree AV block present. No acute ST elevation or depression. Left axis deviation. Prior EKG done 03/17/2017 showed atrial fibrillation with RVR at that time. Heart Score - Score History: Moderately Suspicious EKG: Non Specific repolarisation Disturbance Age: Greater than 65 Risk Factors: Equal/Greater than 3 risk factor or history of atherosclerotic disease Troponin: Less than normal limit HEART Score Total: 6
--- NOTE | 2017-06-20 06:24 | Emergency Department Note ---
START Narrative - START START: I examined this patient and my medical decision-making was reviewed with the Resident Physician. I agree with the documented findings, disposition and treatment plan as described except to the extent set forth below. 67 year old female from dialysis center [facility] of [facility]. boo presents to the ED because patient has been increased back pain which is how she previously presented when she had her last NE. Jimena had an elevated sysotlic blood pressure of 200/91 and 198/110 at the dialysis center and they were concerned that perhaps she was havign unstable angina and sent her here for a rule out study. We will workup if negative workup, due to most recenty cardiac catherization in 2016 with only 50% stenosis at that time we will send her back to dialysis for continued treatment. IF any abnormialtiyt or continued chest pain without relief with luis admit to medicine. 0650: We will sign patient out to the day team (Pepe/aJcob) and pending workup base disposition on results as mentioned above. Vitals/Patient stable
[2017-06-20] MEDS: Nitroglycerin 0.4 MG TAB.SUBL SL ONE ×3 (06:28→06:49)
[2017-06-20 06:39] LABS: Calcium 10.6 mg/dL (8.6-10.8); Potassium 4.9 mEq/L (3.5-4.5)
[2017-06-20] MEDS ORDERED: *HR* Morphine 2 MG/ML SYRINGE IVP ONE (07:03)
--- NOTE | 2017-06-20 07:04 | Emergency Department Note ---
Disposition Clinical Impression: Atypical chest pain Hypertension Qualifiers: Hypertension type: unspecified Qualified Code(s): I10 - Essential (primary) hypertension Disposition: Still a Patient Condition: Undetermined Referrals: Eleazar Calhoun MD [Primary Care Provider] - Forms: ED Satisfaction Letter General Adult HPI - General Chief complaint: ED Chest Pain Stated complaint: back pain Time Seen by Provider: 06/20/17 06:03 Source: patient, EMS Limitations: no limitations - History of Present Illness Pain Scale: 8 - Related Data Home Medications Medication Instructions Recorded Confirmed Cholecalciferol (Vitamin D3) 2,000 unit PO WETHFR 03/17/17 06/20/17 [Vitamin D3] Clopidogrel [Plavix] 75 mg PO DAILY 03/17/17 06/20/17 Furosemide [Lasix] 60 mg PO BID 03/17/17 06/20/17 Gabapentin [Neurontin] 100 mg PO TID 03/17/17 06/20/17 Hydralazine HCl 50 mg PO BID 03/17/17 06/20/17 Insulin Glargine,Hum.rec.anlog 18 unit SQ BID 03/17/17 06/20/17 [Lantus Solostar] Insulin LISPRO [Humalog] 4 - 16 unit SQ TIDWM 03/17/17 06/20/17 Calcitriol [Rocaltrol] 0.5 mcg PO DAILY 06/20/17 06/20/17 Isosorbide MONOnitrate [Isosorbide 120 mg PO DAILY 06/20/17 06/20/17 Mononitrate ER] Quinine Sulfate [Qualaquin] 324 mg PO TID 06/20/17 06/20/17 Warfarin perPT [Coumadin perPT] 7.5 mg PO SUTUTHSA 06/20/17 06/20/17 Warfarin perPT [Coumadin perPT] 10 mg PO MOWEFR 06/20/17 06/20/17 Previous Rx's Medication Instructions Recorded Acetaminophen [Tylenol] 650 mg PO Q6HR PRN #0 tablet 03/22/17 Albuterol Sulfate [Albuterol 2 puff IH Q6HR #1 hfa.aer.ad 03/22/17 Inhaler] Metoprolol XL (24 HR) Succ [Toprol 100 mg PO DAILY #30 tab.er.24h 03/22/17 Xl] Allergies Allergy/AdvReac Type Severity Reaction Status Date / Time bacitracin Allergy Rash Verified 02/20/17 19:14 [From Neosporin ([id number])] Neomycin Allergy Rash Verified 02/20/17 19:14 [From Neosporin ([id number])] polymyxin B Allergy Rash Verified 02/20/17 19:14 [From Neosporin ([id number])] atorvastatin AdvReac Cramping Verified 03/17/17 14:40 of the Muscles plastic Allergy Rash Uncoded 02/20/17 19:14 tape Allergy Rash Uncoded 02/20/17 19:14 Past Medical History - Past Medical History Medical history: Reports: CHF, coronary artery disease, diabetes, dialysis, hypertension, myocardial infarction, renal disease, other Surgical history: Reports: angioplasty/stent, cholecystectomy, hysterectomy, orthopedic, other, other Psychiatric history: Reports: no psych history 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 history: Reports: no STITCHDOWNS TOE FORMER history - Social History Smoking Status: Never smoker Smokeless Tobacco Status: No Alcohol use: Reports: none Drug use: Reports: none Physical Exam - General Limitations: no limitations General appearance: alert, in no apparent distress Course Vital Signs Temperature 98.1 F 06/20/17 06:03 Pulse Rate 72 06/20/17 06:03 Respiratory Rate 14 06/20/17 06:03 Blood Pressure 205/89 06/20/17 06:03 O2 Sat by Pulse Oximetry 100 06/20/17 06:03 Temperature 98.1 F 06/20/17 06:03 Pulse Rate 70 06/20/17 07:11 Respiratory Rate 15 06/20/17 07:11 Blood Pressure 193/87 06/20/17 07:11 O2 Sat by Pulse Oximetry 99 06/20/17 07:11 Oxygen Delivery Oxygen Delivery Nasal Cannula Medical Decision Making - Lab Data Result diagrams: 06/20/17 06:19 06/20/17 06:19 Lab Results 06/20/17 06/20/17 06/20/17 Range/Units 06:19 06:19 06:19 WBC 7.1 (4.3-11.1) K/mcL RBC 3.40 L (3.82-4.97) M/mcL Hgb 10.3 L (11.5-15.4) g/dL Hct 32.3 L (35.3-44.9) % MCV 95.0 (83.0-100.0) fL MCH 30.3 (28.0-33.3) pg MCHC 31.9 (31.6-35.5) g/dL RDW 15.5 H (11.5-14.5) % Plt Count 201 (140-400) K/mcL MPV 9.7 (9.4-12.4) fL Immature Gran % 3.8 (0-4) % Seg Neutrophils % 65.6 % Lymphocytes % 21.5 % Monocytes % 8.0 % Eosinophils % 0.0 % Basophils % 1.1 % Neutrophils # 4.7 (1.6-8.9) K/mcL Lymphocytes # 1.5 (0.6-4.6) K/mcL Monocytes # 0.6 (0.0-1.3) K/mcL Eosinophils # 0.0 (0.0-0.6) K/mcL Basophils # 0.1 (0.0-0.2) K/mcL Sodium 137 (136-145) mEq/L Potassium 4.9 H (3.5-4.5) mEq/L Chloride 100 (98-109) mEq/L Carbon Dioxide 24 (19-29) mEq/L BUN 71 H (7-20) mg/dL Creatinine 7.02 H (0.57-1.11) mg/dL Est GFR ( Amer) 7 L (> 60) Est GFR (Non-Af Amer) 6 L (> 60) BUN/Creatinine Ratio 10 (6-26) Glucose 194 H (70-99) mg/dL Calculated Osmolality 310 H (280-300) Calcium 10.6 (8.6-10.8) mg/dL Troponin I (0-0.03) ng/mL B-Natriuretic Peptide 593 H (0-100) pg/mL 06/20/17 Range/Units 06:19 WBC (4.3-11.1) K/mcL RBC (3.82-4.97) M/mcL Hgb (11.5-15.4) g/dL Hct (35.3-44.9) % MCV (83.0-100.0) fL MCH (28.0-33.3) pg MCHC (31.6-35.5) g/dL RDW (11.5-14.5) % Plt Count (140-400) K/mcL MPV (9.4-12.4) fL Immature Gran % (0-4) % Seg Neutrophils % % Lymphocytes % % Monocytes % % Eosinophils % % Basophils % % Neutrophils # (1.6-8.9) K/mcL Lymphocytes # (0.6-4.6) K/mcL Monocytes # (0.0-1.3) K/mcL Eosinophils # (0.0-0.6) K/mcL Basophils # (0.0-0.2) K/mcL Sodium (136-145) mEq/L Potassium (3.5-4.5) mEq/L Chloride (98-109) mEq/L Carbon Dioxide (19-29) mEq/L BUN (7-20) mg/dL Creatinine (0.57-1.11) mg/dL Est GFR ( Amer) (> 60) Est GFR (Non-Af Amer) (> 60) BUN/Creatinine Ratio (6-26) Glucose (70-99) mg/dL Calculated Osmolality (280-300) Calcium (8.6-10.8) mg/dL Troponin I 0.18 H* (0-0.03) ng/mL B-Natriuretic Peptide (0-100) pg/mL Attestation Statement - Attestation Attestation: Care assumed from at 7 AM pending labs and reassessment. Patient with history of dialysis-dependent end-stage renal disease and coronary artery disease. She presented with back and chest pain. He appears mildly uncomfortable on exam. Please of continued back pain despite nitroglycerin. Additional analgesics were ordered. Labs thus far reviewed by me. EKG reviewed by me 08:15: labs resulted. case d/w Dr. Hurst to arrange dialysis. Dr. Almanzar admits to medicine service
[2017-06-20 07:05] LABS: Basophils # 0.1 K/mcL (0.0-0.2); Basophils % 1.1 %; Hematocrit 32.3 % (35.3-44.9); Hemoglobin 10.3 g/dL (11.5-15.4); Immature Granulocytes % 3.8 % (0-4); Lymphocytes # 1.5 K/mcL (0.6-4.6); Lymphocytes % 21.5 %; Mean Corpuscular HGB Conc 31.9 g/dL (31.6-35.5); Mean Corpuscular Hemoglobin 30.3 pg (28.0-33.3); Mean Platelet Volume 9.7 fL (9.4-12.4); Monocytes # 0.6 K/mcL (0.0-1.3); Neutrophils # 4.7 K/mcL (1.6-8.9); Platelet Count 201 K/mcL (140-400); Red Cell Distribution Width 15.5 % (11.5-14.5); Segmented Neutrophils % 65.6 %
--- NOTE | 2017-06-20 08:20 | Emergency Department Note ---
Disposition Clinical Impression: Atypical chest pain, Troponin level elevated, ESRD (end stage renal disease) on dialysis Hypertension Qualifiers: Hypertension type: unspecified Qualified Code(s): I10 - Essential (primary) hypertension CHF (congestive heart failure) Qualifiers: Congestive heart failure type: unspecified congestive heart failure type Congestive heart failure chronicity: acute on chronic Qualified Code(s): I50.9 - Heart failure, unspecified Disposition: Admitted As Inpatient Condition: Undetermined Referrals: Eleazar Calhoun MD [Primary Care Provider] - Forms: ED Satisfaction Letter Time of Disposition: 08:20 Chest Pain HPI - General Chief Complaint: ED Chest Pain Stated Complaint: back pain Time Seen by Provider: 06/20/17 06:03 Source: patient, EMS Limitations: no limitations - History of Present Illness Pain Location: substernal Severity scale (1-10): 9 Quality: other ("Pain"- cannot characterize) Improves with: nothing Worsens with: nothing Associated symptoms: Reports: nausea, dyspnea. Denies: vomiting, diaphoresis, fever, cough, leg swelling - Related Data Home Medications Medication Instructions Recorded Confirmed Cholecalciferol (Vitamin D3) 2,000 unit PO WETHFR 03/17/17 06/20/17 [Vitamin D3] Clopidogrel [Plavix] 75 mg PO DAILY 03/17/17 06/20/17 Furosemide [Lasix] 60 mg PO BID 03/17/17 06/20/17 Gabapentin [Neurontin] 100 mg PO TID 03/17/17 06/20/17 Hydralazine HCl 50 mg PO BID 03/17/17 06/20/17 Insulin Glargine,Hum.rec.anlog 18 unit SQ BID 03/17/17 06/20/17 [Lantus Solostar] Insulin LISPRO [Humalog] 4 - 16 unit SQ TIDWM 03/17/17 06/20/17 Calcitriol [Rocaltrol] 0.5 mcg PO DAILY 06/20/17 06/20/17 Isosorbide MONOnitrate [Isosorbide 120 mg PO DAILY 06/20/17 06/20/17 Mononitrate ER] Quinine Sulfate [Qualaquin] 324 mg PO TID 06/20/17 06/20/17 Warfarin perPT [Coumadin perPT] 7.5 mg PO SUTUTHSA 06/20/17 06/20/17 Warfarin perPT [Coumadin perPT] 10 mg PO MOWEFR 06/20/17 06/20/17 Previous Rx's Medication Instructions Recorded Acetaminophen [Tylenol] 650 mg PO Q6HR PRN #0 tablet 03/22/17 Albuterol Sulfate [Albuterol 2 puff IH Q6HR #1 hfa.aer.ad 03/22/17 Inhaler] Metoprolol XL (24 HR) Succ [Toprol 100 mg PO DAILY #30 tab.er.24h 03/22/17 Xl] Allergies Allergy/AdvReac Type Severity Reaction Status Date / Time bacitracin Allergy Rash Verified 02/20/17 19:14 [From Neosporin ([id number])] Neomycin Allergy Rash Verified 02/20/17 19:14 [From Neosporin ([id number])] polymyxin B Allergy Rash Verified 02/20/17 19:14 [From Neosporin ([id number])] atorvastatin AdvReac Cramping Verified 03/17/17 14:40 of the Muscles plastic Allergy Rash Uncoded 02/20/17 19:14 tape Allergy Rash Uncoded 02/20/17 19:14 Chest Pain PMH - Past Medical History Medical history: Reports: CHF, coronary artery disease, diabetes, dialysis, hypertension, myocardial infarction, renal disease, other Surgical history: Reports: angioplasty/stent, cholecystectomy, hysterectomy, orthopedic, other, other Psychiatric history: Reports: no psych history 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 Signed out from the nighttime team. Patient in no acute distress at this time, however, was still having some discomfort after nitroglycerin and morphine. She does have an appointment tomorrow at [place] to discuss possible renal transplant, so she would like to be discharged by them. However, we did discuss admission in the hospital for further cardiac workup which she was agreeable with. Patient does have a slight elevation in her baseline troponin. We also spoke with nephrology , Dr. Hurst who will dialyze her today as scheduled. Patient admitted and accepted to the hospitalist service under Dr. Almanzar. Time: 08:18 Vital Signs Temperature 98.1 F 06/20/17 06:03 Pulse Rate 72 06/20/17 06:03 Respiratory Rate 14 06/20/17 06:03 Blood Pressure 205/89 06/20/17 06:03 O2 Sat by Pulse Oximetry 100 06/20/17 06:03 Temperature 98.1 F 06/20/17 06:03 Pulse Rate 70 06/20/17 07:11 Respiratory Rate 15 06/20/17 07:11 Blood Pressure 193/87 06/20/17 07:11 O2 Sat by Pulse Oximetry 99 06/20/17 07:11 Oxygen Delivery Oxygen Delivery Nasal Cannula Chest Pain - Lab Data Result diagrams: 06/20/17 06:19 06/20/17 06:19 Lab Results 06/20/17 06/20/17 06/20/17 Range/Units 06:19 06:19 06:19 WBC 7.1 (4.3-11.1) K/mcL RBC 3.40 L (3.82-4.97) M/mcL Hgb 10.3 L (11.5-15.4) g/dL Hct 32.3 L (35.3-44.9) % MCV 95.0 (83.0-100.0) fL MCH 30.3 (28.0-33.3) pg MCHC 31.9 (31.6-35.5) g/dL RDW 15.5 H (11.5-14.5) % Plt Count 201 (140-400) K/mcL MPV 9.7 (9.4-12.4) fL Immature Gran % 3.8 (0-4) % Seg Neutrophils % 65.6 % Lymphocytes % 21.5 % Monocytes % 8.0 % Eosinophils % 0.0 % Basophils % 1.1 % Neutrophils # 4.7 (1.6-8.9) K/mcL Lymphocytes # 1.5 (0.6-4.6) K/mcL Monocytes # 0.6 (0.0-1.3) K/mcL Eosinophils # 0.0 (0.0-0.6) K/mcL Basophils # 0.1 (0.0-0.2) K/mcL Sodium 137 (136-145) mEq/L Potassium 4.9 H (3.5-4.5) mEq/L Chloride 100 (98-109) mEq/L Carbon Dioxide 24 (19-29) mEq/L BUN 71 H (7-20) mg/dL Creatinine 7.02 H (0.57-1.11) mg/dL Est GFR ( Amer) 7 L (> 60) Est GFR (Non-Af Amer) 6 L (> 60) BUN/Creatinine Ratio 10 (6-26) Glucose 194 H (70-99) mg/dL Calculated Osmolality 310 H (280-300) Calcium 10.6 (8.6-10.8) mg/dL Troponin I (0-0.03) ng/mL B-Natriuretic Peptide 593 H (0-100) pg/mL 06/20/17 Range/Units 06:19 WBC (4.3-11.1) K/mcL RBC (3.82-4.97) M/mcL Hgb (11.5-15.4) g/dL Hct (35.3-44.9) % MCV (83.0-100.0) fL MCH (28.0-33.3) pg MCHC (31.6-35.5) g/dL RDW (11.5-14.5) % Plt Count (140-400) K/mcL MPV (9.4-12.4) fL Immature Gran % (0-4) % Seg Neutrophils % % Lymphocytes % % Monocytes % % Eosinophils % % Basophils % % Neutrophils # (1.6-8.9) K/mcL Lymphocytes # (0.6-4.6) K/mcL Monocytes # (0.0-1.3) K/mcL Eosinophils # (0.0-0.6) K/mcL Basophils # (0.0-0.2) K/mcL Sodium (136-145) mEq/L Potassium (3.5-4.5) mEq/L Chloride (98-109) mEq/L Carbon Dioxide (19-29) mEq/L BUN (7-20) mg/dL Creatinine (0.57-1.11) mg/dL Est GFR ( Amer) (> 60) Est GFR (Non-Af Amer) (> 60) BUN/Creatinine Ratio (6-26) Glucose (70-99) mg/dL Calculated Osmolality (280-300) Calcium (8.6-10.8) mg/dL Troponin I 0.18 H* (0-0.03) ng/mL B-Natriuretic Peptide (0-100) pg/mL
[2017-06-20] MEDS ORDERED: Acetaminophen 325 MG TABLET PO PRN (08:38)
[2017-06-20] MEDS ORDERED: Furosemide 40 MG/4 ML VIAL IVP ONE (08:39)
[2017-06-20] MEDS ORDERED: Calcium Gluconate 1,000 MG in D5% in Water 100 ML IVPB ONE (08:39)
--- NOTE | 2017-06-20 08:44 | Internal Med History&Physical ---
Date of Encounter: 06/20/17 Time of Encounter: 08:42 Assessment and Plan (1) Chest pain Current visit: Yes Status: Acute Without acute coronary syndrome. Patient has been having constant pain I will start to run nitroglycerin drip. She is also on Coumadin for atrial fibrillation I will check INR. Electrocardiogram shows no ST segment shifts. Serial cardiac markers. Cardiology consultation. Qualifiers: Qualified Code(s): R07.9 - Chest pain, unspecified (2) Diabetes Current visit: No Status: Chronic Continue home or insulin therapy. Qualifiers: Diabetes mellitus type: type 2 Diabetes mellitus complication status: with unspecified complications Diabetes mellitus termite inspector insulin use: with termite inspector use Qualified Code(s): E11.8 - Type 2 diabetes mellitus with unspecified complications; Z79.4 - senior care (current) use of insulin (3) ESRD (end stage renal disease) on dialysis Current visit: Yes Status: Acute Patient with [facility] today. Patient has an appointment tomorrow at [facility] for preparation for renal transplant (4) Hypertensive urgency Current visit: Yes Status: Acute Patient has severe hypertension systolic running one 190s to 200. This may be contribute into her chest pain. I will start the patient nitroglycerin drip. Emergency room physician already discussed with nephrology for dialysis today. Internal Medicine - H&P: HPI Chief complaint: chest pain History of present illness: Ms. Madden is a 67 year old female with end-stage renal disease and hemodialysis Sunday was actually preparing for renal transplantation presents to the emergency room today with a new complaint of chest pain. Chest pain started early in the morning as she was heading towards her dialysis session at approximately 5 AM. Since then been has been constant to my interview 3 hours later. Patient describes pain in the inter-scapular area radiating to her anterior chest. Patient is also experiencing shortness of breath with any minimal exertion. Patient is concerned about the pain as it was similar to her prior chest pain that prompted coronary intervention. Patient denies any sputum production. Patient is requiring 2 L of nasal oxygen in the emergency room. Patient denies any fevers chills Past Med Surg Social Fam HX - Past Medical History Medical history: CHF, coronary artery disease, diabetes, dialysis, hypertension , myocardial infarction, renal disease, other Psychiatric history: no psych history - Past Surgical History Surgical History: angioplasty/stent, cholecystectomy, hysterectomy, orthopedic, other, other - Social History Smoking Status: Never smoker Smokeless Tobacco Status: No Alcohol use: none Drug use: none - Family History Father Family Member Ethnicity: Non- Living Status: Hx Family Cardiac Disorders: Yes ([place]) Mother Family Member Ethnicity: Non- Living Status: Hx Family Cardiac Disorders: Yes ([place]) Hx Family Endocrine Disorder: Yes (DM) Brother Family Member Ethnicity: Non- Living Status: Still Living Hx Family Cardiac Disorders: Yes (HD) Hx Family Endocrine Disorder: Yes (DM) Sister Family Member Ethnicity: Non- Living Status: Hx Family Cardiac Disorders: Yes (HD) Hx Family Cancer: Yes (Ovarian) Internal Medicine - H&P: Meds Cholecalciferol (Vitamin D3) [Vitamin D3] 2,000 unit PO WETHFR 03/17/17 [History ] Clopidogrel [Plavix] 75 mg PO DAILY 03/17/17 [History] Furosemide [Lasix] 60 mg PO BID 03/17/17 [History] Gabapentin [Neurontin] 100 mg PO TID 03/17/17 [History] Hydralazine HCl 50 mg PO BID 03/17/17 [History] Insulin Glargine,Hum.rec.anlog [Lantus Solostar] 18 unit SQ BID 03/17/17 [ History] Insulin LISPRO [Humalog] 4 - 16 unit SQ TIDWM 03/17/17 [History] Acetaminophen [Tylenol] 650 mg PO Q6HR PRN #0 tablet 03/22/17 [Rx] Albuterol Sulfate [Albuterol Inhaler] 2 puff IH Q6HR #1 hfa.aer.ad 03/22/17 [Rx] Metoprolol XL (24 HR) Succ [Toprol Xl] 100 mg PO DAILY #30 tab.er.24h 03/22/17 [ Rx] Calcitriol [Rocaltrol] 0.5 mcg PO DAILY 06/20/17 [History] Isosorbide MONOnitrate [Isosorbide Mononitrate ER] 120 mg PO DAILY 06/20/17 [ History] Quinine Sulfate [Qualaquin] 324 mg PO TID 06/20/17 [History] Warfarin perPT [Coumadin perPT] 7.5 mg PO SUTUTHSA 06/20/17 [History] Warfarin perPT [Coumadin perPT] 10 mg PO MOWEFR 06/20/17 [History] 3 Allergy/AdvReac Type Severity Reaction Status Date / Time bacitracin Allergy Rash Verified 02/20/17 19:14 [From Neosporin ([id number])] Neomycin Allergy Rash Verified 02/20/17 19:14 [From Neosporin ([id number])] polymyxin B Allergy Rash Verified 02/20/17 19:14 [From Neosporin ([id number])] atorvastatin AdvReac Cramping Verified 03/17/17 14:40 of the Muscles plastic Allergy Rash Uncoded 02/20/17 19:14 tape Allergy Rash Uncoded 02/20/17 19:14 All Systems PM: A 10-system review of systems was performed and is negative for pertinent findings except as documented above in the HPI. Review of systems: 10 point review systems is negative except for HPI - Constitutional Vitals: Temp Pulse Resp BP Pulse Ox 98.1 F 70 15 193/87 99 06/20/17 06:03 06/20/17 07:11 06/20/17 07:11 06/20/17 07:11 06/20/17 07:11 Exam: Gen.: patient is alert oriented times 3 cardiac: normal S1 S2 no additional sounds or murmurs chest: bilateral basal crackles abdomen soft nontender nondistended normal bowel sounds lower extremity 1+ swelling. Neuro: no new focal deficits Internal Med - H&P Results - Labs CBC & Chem 7: 06/20/17 06:19 06/20/17 06:19 Labs: Short CBC 06/20/17 Range/Units 06:19 WBC 7.1 (4.3-11.1) K/mcL Hgb 10.3 L (11.5-15.4) g/dL Hct 32.3 L (35.3-44.9) % Plt Count 201 (140-400) K/mcL Neutrophils # 4.7 (1.6-8.9) K/mcL BMP 06/20/17 06:19 Sodium 137 Potassium 4.9 H Chloride 100 Carbon Dioxide 24 BUN 71 H Creatinine 7.02 H Glucose 194 H Calcium 10.6 Cardiac Enzymes 06/20/17 Range/Units 06:19 Troponin I 0.18 H* (0-0.03) ng/mL - Impressions ITS Impressions Chest X-Ray 06/20/17 06:16 IMPRESSION: Mild cardiomegaly with pulmonary venous congestion. D/ / Janes Muñoz MD / Janes Muñoz MD Interpreting Provider: Janes Muñoz MD
[2017-06-20 08:59] LABS: INR 2.4; Prothrombin Time 26.7 Seconds (9.4-12.1)
[2017-06-20] MEDS ORDERED: Furosemide 40 MG TABLET PO SCH (09:00)
--- NOTE | 2017-06-20 09:53 | Cardiology Consult Note ---
Date of Encounter: 06/20/17 Time of Encounter: 09:40 Assessment and Plan (1) CAD (coronary artery disease) Current Visit: Yes Status: Acute Patient has a known history of CAD. Patient has had 5 stents placed in the past. She states that she is currently having chest pain similar to previous ND. Troponin of 0.18 which is elevated from her baseline of 0.10. This could be due to the patient having a blood pressure in the 200's this morning. Possibly due to demand ischemia. Continue to trend troponins at this time. Most recent cardiac catheterization 03/19/17 which showed The LMCA is angiographically free of disease. 30% stenosis in the Proximal LAD, patent proximal and mid stent. 40% stenosis in the Mid LAD. 20% stenosis in the Mid Circumflex. Patent mid stent. There is a 30% stenosis in the Proximal RCA. The left ventricle is normal and mildly abnormal contractility EF 40-45% There is mild three vessel coronary artery disease. Stent placed from a prior procedure in the Mid LAD is patent.Stent placed from a prior procedure in the Proximal RCA is is patent. The last Echo was done on 03/18/17 Technically sub-optimal due to poor echocardiographic windows.LVEF 35-40%. Normal LV chamber size and function. Mild concentric left ventricular hypertrophy. Moderate global left ventricular systolic dysfunction. Atypical septal motion consistent with bundle branch block. Mildly dilated right ventricle. Mild right ventricular hypokinesis. Indeterminate diastolic function. Mild-moderate mitral regurgitation. Mild tricuspid regurgitation. Moderate pulmonary hypertension. Estimated RVSP is 49 mmHg. Qualifiers: Coronary Disease-Associated Artery/Lesion type: [place] artery [place] vs. transplanted heart: [place] heart Associated angina: angina presence unspecified Qualified Code(s): I25.10 - Atherosclerotic heart disease of [place] coronary artery without angina pectoris (2) Chest pain Current Visit: Yes Status: Acute Patient states that she is having chest pain that is similar to when she has had an ND in the past. EKG showed a sinus rhythm with no ischemic changes at this time. Troponin was 0.18 which is elevated from her baseline of 0.10. Continue to trend troponins at this time. Patient currently has a nitro drip ordered. Qualifiers: Chest pain type: unspecified Qualified Code(s): R07.9 - Chest pain, unspecified (3) Troponin level elevated Current Visit: Yes Status: Acute Patient states that she is having chest pain that is similar to when she has had an ND in the past. EKG showed a sinus rhythm with no ischemic changes at this time. Troponin was 0.18 which is elevated from her baseline of 0.10. This could be due to the patient having a blood pressure in the 200's this morning. Possibly due to demand ischemia. Continue to trend troponins at this time. (4) Atrial fibrillation Current Visit: Yes Status: Acute Patient has a history of Atrial fibrillation. Most recent ekg showed sinus rhythm. Patient is currently being anticoagulated with warfarin. (5) Hypertension Current Visit: Yes Status: Chronic Patient has a history of hypertension. Pateint reports she had a blood pressure of 208/110 this morning at the dialysis center. Most recent bp was 183/83. Patient has a nitro drip ordered. This is being managed by the primary service Qualifiers: Hypertension type: unspecified Qualified Code(s): I10 - Essential (primary ) hypertension (6) ESRD (end stage renal disease) on dialysis Current Visit: Yes Status: Acute Patient has a known history of ESRD requiring dialysis. She states that she normally goes to dialysis Sunday, Sunday and Sunday. She was not able to have dialysis today due to having chest pain. Current Cr is 7.02 and GFR of 6. Patient was supposed to go to [facility] tomorrow to see is he son would be a match to donate a kidney for renal transplant. While I was in the room her and her family were in the process of rescheduling this appointment. Nephology has been consulted (7) Diabetes Current Visit: No Status: Chronic Patient has a history of diabetes and uses insulin. This is being managed by the primary service. Qualifiers: Diabetes mellitus type: type 2 Diabetes mellitus complication status: with unspecified complications Diabetes mellitus correction insulin use: with terminal worker use Qualified Code(s): E11.8 - Type 2 diabetes mellitus with unspecified complications; Z79.4 - nursing home (current) use of insulin Discussion w patient/family: The assessment and plan as outlined above was discussed with the patient and/or family members who expressed understanding and agreement. All questions were answered. Thank you for involving us in the care of your patient. Please call with any questions. History of Present Illness Consult date: 06/20/17 Requesting physician: Vishal Almanzar Consult reason: Chest pain Chief complaint: Back and Chest pain History of present illness: Ms. Madden is a 67 year old female that presented to the emergency department with back and chest pain that began around 5:15-5:30 this morning. She states that the pain feels like it started in her back and radiated into her chest. She describes the pain as sharp and constant across her entire chest. She rates the pain as an 8/10. Patient states the pain is worse when she gets up and walks. She states she also became nauseated, clamy and short of breath. She denies any radiation of the pain to her neck, jaw, or arms. The patient states that this feel similar to when she has had a previous heart attack. She states what one she arrived at the dialysis center she mentioned that she was having chest pain and they took her blood pressure and she states it was 208/110. . They then called her nephologist who recommended that she come to the emergency department. She did not try taking any medications prior to arrival to the ED. On arrival to the ED she states that she was given nitro and morphine but this did not provide relief. Patient states that she normally has dialysis Sunday, Sunday, Sunday but did not have her session today due to her chest pain. The patient states that she has had 4 or 5 stents placed in the past.The patient states that she was supposed to go to [facility] tomorrow to see if her son would be a match to donate a kidney for a renal transplant. The patient and her family were in the process of rescheduling this appointment while I was in the room. Past Med Surg Social Fam HX - Past Medical History Medical history: CHF, coronary artery disease, diabetes, dialysis, hypertension , myocardial infarction, renal disease, other Psychiatric history: no psych history - Past Surgical History Surgical History: angioplasty/stent, cholecystectomy, hysterectomy, orthopedic, other, other - Social History Smoking Status: Never smoker Smokeless Tobacco Status: No Alcohol use: none Drug use: none - Family History Father Family Member Ethnicity: Non- Living Status: Hx Family Cardiac Disorders: Yes (ND) Mother Family Member Ethnicity: Non- Living Status: Hx Family Cardiac Disorders: Yes (HD) Hx Family Endocrine Disorder: Yes (DM) Brother Family Member Ethnicity: Non- Living Status: Still Living Hx Family Cardiac Disorders: Yes (HD) Hx Family Endocrine Disorder: Yes (DM) Sister Family Member Ethnicity: Non- Living Status: Hx Family Cardiac Disorders: Yes (HD) Hx Family Cancer: Yes (Ovarian) Medications and Allergies Cholecalciferol (Vitamin D3) [Vitamin D3] 2,000 unit PO WETHFR 03/17/17 [History ] Clopidogrel [Plavix] 75 mg PO DAILY 03/17/17 [History] Furosemide [Lasix] 60 mg PO BID 03/17/17 [History] Gabapentin [Neurontin] 100 mg PO TID 03/17/17 [History] Hydralazine HCl 50 mg PO BID 03/17/17 [History] Insulin Glargine,Hum.rec.anlog [Lantus Solostar] 18 unit SQ BID 03/17/17 [ History] Insulin LISPRO [Humalog] 4 - 16 unit SQ TIDWM 03/17/17 [History] Acetaminophen [Tylenol] 650 mg PO Q6HR PRN #0 tablet 03/22/17 [Rx] Albuterol Sulfate [Albuterol Inhaler] 2 puff IH Q6HR #1 hfa.aer.ad 03/22/17 [Rx] Metoprolol XL (24 HR) Succ [Toprol Xl] 100 mg PO DAILY #30 tab.er.24h 03/22/17 [ Rx] Calcitriol [Rocaltrol] 0.5 mcg PO DAILY 06/20/17 [History] Isosorbide MONOnitrate [Isosorbide Mononitrate ER] 120 mg PO DAILY 06/20/17 [ History] Quinine Sulfate [Qualaquin] 324 mg PO TID 06/20/17 [History] Warfarin perPT [Coumadin perPT] 7.5 mg PO SUTUTHSA 06/20/17 [History] Warfarin perPT [Coumadin perPT] 10 mg PO MOWEFR 06/20/17 [History] 3 Allergy/AdvReac Type Severity Reaction Status Date / Time bacitracin Allergy Rash Verified 02/20/17 19:14 [From Neosporin ([id number])] Neomycin Allergy Rash Verified 02/20/17 19:14 [From Neosporin ([id number])] polymyxin B Allergy Rash Verified 02/20/17 19:14 [From Neosporin ([id number])] atorvastatin AdvReac Cramping Verified 03/17/17 14:40 of the Muscles plastic Allergy Rash Uncoded 02/20/17 19:14 tape Allergy Rash Uncoded 02/20/17 19:14 All Systems Review: A 10-system review of systems was performed and is negative for pertinent findings except as documented above in the HPI. - Cardiovascular Cardiovascular: chest pain at rest, chest pain with exertion, dyspnea at rest, dyspnea on exertion, no leg edema - Respiratory Respiratory: dyspnea - Gastrointestinal Gastrointestinal: no abdominal pain - Genitourinary Genitourinary: no dysuria, no hematuria - Neurological Neurological: no dizziness, no focal weakness, no numbness Physical Examination Vital Signs, Last 4 Hours Resp BP 06/20/17 09:29 16 180/82 General: Conversant, No Apparent Distress HEENT: Atraumatic, Normocephaly, Mucus Membranes Moist Neck: No JVD, Normal carotid pulses Cardiac: Reg Rate and Rhythm, Normal S1 and S2, No Murmur Lungs: Other (mild crackles in the lower lung [place] bilaterally) Neuro: Alert and responsive, No focal deficits noted Abdomen: Soft, Non-Tender Skin: No rashes noted on visualized skin Extremities: No Clubbing, No Cyanosis, Normal Pulses, Other (Minimal swelling in bilateral lower extremities) Results 06/20/17 06:19 06/20/17 06:19 Lab Results 06/20/17 08:42 INR 2.4 - Imaging and Cardiology Chest Xray: report reviewed Echo: report reviewed Cardiac cath: report reviewed - EKG Interpretation EKG results cardiology: personally reviewed, sinus rhythm Consult Discharge Plan - Plan Referrals: Eleazar Calhoun MD [Primary Care Provider] -
[2017-06-20] MEDS ORDERED: 0.9 % Sodium Chloride 1,000 ML ONE ×2 (10:47→15:58)
[2017-06-20] MEDS: hydrALAZINE 25 MG TABLET PO SCH ×2 (10:55→18:50)
[2017-06-20] MEDS: Isosorbide MONOnitrate (24 HR) 60 MG TAB.ER.24H PO SCH (10:55)
[2017-06-20] MEDS: Gabapentin 100 MG CAPSULE PO SCH ×3 (10:56→22:24)
[2017-06-20] MEDS: Metoprolol XL (24 HR) Succ 50 MG TAB.ER.24H PO SCH (10:56)
[2017-06-20] MEDS: Insulin LISPRO 300 UNITS/3 ML VIAL SQ SCH ×2 (10:57→18:49)
[2017-06-20] MEDS: Insulin DETEMIR 100 UNIT/ML X5UNITS SQ SCH ×2 (10:57→22:31)
[2017-06-20] MEDS: Cholecalciferol (D-3) 1,000 UNIT TABLET PO SCH (11:00)
[2017-06-20] MEDS: Nitroglycerin 25 MG/250 ML INFUS..BTL IVC SCH (11:01)
[2017-06-20] MEDS ORDERED: 0.9 % Sodium Chloride 250 ML IVC PRN (12:29)
[2017-06-20] MEDS ORDERED: 0.9 % Sodium Chloride 1,000 ML PRIME SCH (12:30)
--- NOTE | 2017-06-20 12:44 | Nephrology Consult Note ---
Date of Encounter: 06/20/17 Time of Encounter: 12:20 Assessment and Plan (1) ESRD (end stage renal disease) on dialysis Current Visit: Yes Status: Acute Atypical chest pain. Trop 0.18, 0.52. In light of her recent denial of back pain associated with prior IN would consider thoracic AAA in differential and visualize during LHC if done. Will do HD today. Following LHC if done, orders given. History of Present Illness - Reason for Consult end stage renal disease - History of Present Illness Ms. Madden is a 67 year old female with ESRD who dialyzes at [facility]. Other PMH-: CHF, coronary artery disease, diabetes, hypertension, myocardial infarction, angioplasty/stent, cholecystectomy, hysterectomy, orthopedic. At time of consult Ms. Madden states was on way to HD today when experienced back pain that radiated into her chest, shortness of breath, cold sweat and nausea. She therefore did not dialyze today. When asked about back pain similar with prior myocardial infarctions she denies. In ER cardiac work up initiated. SBP> 200. Given SL NTG and aspirin, currently on NTG drip. EKG- sinus rhythm, AR 74, first degree block, no ST elevation or depression. Initial trop 0.18, serial 0.52. Past Med Surg Social Fam HX - Past Medical History Medical history: CHF, coronary artery disease, diabetes, dialysis, hypertension , myocardial infarction, renal disease, other Psychiatric history: no psych history - Past Surgical History Surgical History: angioplasty/stent, cholecystectomy, hysterectomy, orthopedic, other, other - Social History Smoking Status: Never smoker Smokeless Tobacco Status: No Alcohol use: none Drug use: none - Family History Father Family Member Ethnicity: Non- Living Status: Hx Family Cardiac Disorders: Yes ([place]) Mother Name: Nohemi Napier Family Member Ethnicity: Non- Living Status: Age at : 76 Cause of : MVA Hx Family Cardiac Disorders: Yes (HD) Hx Family Respiratory Disorders: No Hx Family Cancer: No Hx Family GI Disorders: No Hx Family Genitourinary Disorders: No Hx Family Endocrine Disorder: Yes (DM) Hx Family Musculoskeletal Disorders: No Hx Family Neuromuscular Disorders: No Hx Family Neurologic Disorders: No Hx Family HEENT Disorders: No Hx Family Autoimmune Disorders: No Hx Family Reproductive Disorders: No Hx Family Psychosocial Disorders: No Hx Family Medical Disorders: No Brother Name: Francisco Napier Age: 62 Family Member Ethnicity: Non- Living Status: Still Living Hx Family Cardiac Disorders: Yes (HD) Hx Family Respiratory Disorders: No (COPD) Hx Family Cancer: No Hx Family GI Disorders: No Hx Family Genitourinary Disorders: No Hx Family Endocrine Disorder: Yes (DM) Hx Family Musculoskeletal Disorders: No Hx Family Neuromuscular Disorders: No Hx Family Neurologic Disorders: No Hx Family HEENT Disorders: No Hx Family Autoimmune Disorders: No Hx Family Reproductive Disorders: No Hx Family Psychosocial Disorders: No Hx Family Medical Disorders: Yes (Sleep apnea, HTN, DM) Sister History Unknown: Yes Name: Shayy Keene Age: 69 Family Member Ethnicity: Non- Living Status: Hx Family Cardiac Disorders: Yes (HD) Hx Family Respiratory Disorders: No Hx Family Cancer: Yes (Ovarian) Hx Family GI Disorders: No Hx Family Genitourinary Disorders: No Hx Family Endocrine Disorder: Yes (Diabetes type 2-Brother) Hx Family Musculoskeletal Disorders: No (Osteoarthritis) Hx Family Neuromuscular Disorders: No Hx Family Neurologic Disorders: No Hx Family HEENT Disorders: No Hx Family Autoimmune Disorders: No Hx Family Reproductive Disorders: Yes (Infertility) Hx Family Psychosocial Disorders: No Hx Family Medical Disorders: Yes Medications and Allergies Cholecalciferol (Vitamin D3) [Vitamin D3] 2,000 unit PO WETHFR 03/17/17 [History ] Clopidogrel [Plavix] 75 mg PO DAILY 03/17/17 [History] Furosemide [Lasix] 60 mg PO BID 03/17/17 [History] Gabapentin [Neurontin] 100 mg PO TID 03/17/17 [History] Hydralazine HCl 50 mg PO BID 03/17/17 [History] Insulin Glargine,Hum.rec.anlog [Lantus Solostar] 18 unit SQ BID 03/17/17 [ History] Insulin LISPRO [Humalog] 4 - 16 unit SQ TIDWM 03/17/17 [History] Acetaminophen [Tylenol] 650 mg PO Q6HR PRN #0 tablet 03/22/17 [Rx] Albuterol Sulfate [Albuterol Inhaler] 2 puff IH Q6HR #1 hfa.aer.ad 03/22/17 [Rx] Metoprolol XL (24 HR) Succ [Toprol Xl] 100 mg PO DAILY #30 tab.er.24h 03/22/17 [ Rx] Calcitriol [Rocaltrol] 0.5 mcg PO DAILY 06/20/17 [History] Isosorbide MONOnitrate [Isosorbide Mononitrate ER] 120 mg PO DAILY 06/20/17 [ History] Quinine Sulfate [Qualaquin] 324 mg PO TID 06/20/17 [History] Warfarin perPT [Coumadin perPT] 7.5 mg PO SUTUTHSA 06/20/17 [History] Warfarin perPT [Coumadin perPT] 10 mg PO MOWEFR 06/20/17 [History] 3 Allergy/AdvReac Type Severity Reaction Status Date / Time bacitracin Allergy Rash Verified 02/20/17 19:14 [From Neosporin ([id number])] Neomycin Allergy Rash Verified 02/20/17 19:14 [From Neosporin ([id number])] polymyxin B Allergy Rash Verified 02/20/17 19:14 [From Neosporin ([id number])] atorvastatin AdvReac Cramping Verified 03/17/17 14:40 of the Muscles plastic Allergy Rash Uncoded 02/20/17 19:14 tape Allergy Rash Uncoded 02/20/17 19:14 Review of Systems All Systems: reviewed and no additional remarkable complaints except as stated Exam - Vital Signs Vital signs: Initial Vital Signs Temp Pulse Resp BP Pulse Ox 98.1 F 72 14 205/89 100 06/20/17 06:03 06/20/17 06:03 06/20/17 06:03 06/20/17 06:03 06/20/17 06:03 Vital Signs - Last 8 Hours Temp Pulse Resp BP Pulse Ox 06/20/17 12:09 69 16 165/76 97 06/20/17 12:00 70 17 164/75 97 06/20/17 11:44 97.5 F L 71 16 183/69 06/20/17 10:43 16 98 06/20/17 10:11 97.4 F L 69 18 183/83 99 06/20/17 09:29 16 180/82 Intake and Output 06/19/17 06/20/17 06/20/17 23:59 07:59 15:59 Intake Total 0 / 0 Output Total 0 / 0 Balance 0 / 0 Intake: Oral 0 / 0 Output: Urine 0 / 0 Other: Blood Glucose* 140 - General Appearance General appearance: well-developed, well-nourished, appears started age EENT: mucous membranes moist Neck: no JVD, no carotid bruit Respiratory: clear Cardiology: no edema, regular rate, regular rhythm Gastrointestinal: normoactive bowel sounds, no tenderness Integumentary: warm and dry Neurologic: alert and oriented x3 Psychiatric: mood/affect appropriate, cooperative Results - Lab Results 06/20/17 06:19 06/20/17 06:19 Most recent lab results Calcium 10.6 mg/dL (8.6-10.8) 06/20/17 06:19 Consult Discharge Plan - Plan Referrals: Eleazar Calhoun MD [Primary Care Provider] -
[2017-06-20 15:30] LABS: Hepatitis B Surface Antibody 2.82 mIU/mL; Hepatitis B Surface Antigen Nonreactive (Nonreactive)
[2017-06-20] MEDS ORDERED: Verapamil 5 MG/2 ML VIAL ONE (15:58)
[2017-06-20] MEDS ORDERED: *HR* Heparin 10,000 UNIT/10 ML VIAL ONE (15:59)
[2017-06-20] MEDS ORDERED: Nitroglycerin 1,000 MCG/10 ML VIAL IV ONE (15:59)
[2017-06-20] MEDS ORDERED: Heparin 1,000 UNITS/500 mL NS 500 ML ONE (15:59)
[2017-06-20] MEDS ORDERED: *HR* Midazolam HCl 2 MG/2 ML VIAL ONE (16:21)
[2017-06-20] MEDS ORDERED: *HR* FentaNYL (PF) 100 MCG/2 ML VIAL ONE (16:21)
--- NOTE | 2017-06-20 16:28 | Pre-Sedation Evaluation ---
Pre-sedation evaluation - Pre-sedation checklist Date of procedure: 06/20/17 Procedure: Heart Cath Recent Vitals: Last Vital Signs Temp 97.5 F L 06/20/17 11:44 Pulse 65 06/20/17 12:58 Resp 16 06/20/17 12:58 BP 158/73 06/20/17 12:58 Pulse Ox 96 06/20/17 12:58 H&P (including ROS) documented in medical record: Yes Previous reaction to sedatives/anesthetics: No Dietary Status: No solid food in preceding 4 hrs and no liquid in preceding 2 hrs Dentition: No loose teeth or bridges If Yes;: Morbid obesity ASA Classification *see protocol: CLASS II-Mild systemic disease, E-EMERGENCY- Add to any of the above to indicate emergent Plan of Care: Pt appropriate candidate for procedure/moderate/conscious sedation , Risks/benefits of procedure/sedation discussed w/ patient/family
[2017-06-20] MEDS ORDERED: Ondansetron 4 MG/2 ML VIAL IVP PRN (17:07)
[2017-06-20] MEDS ORDERED: *HR* Morphine 2 MG/ML SYRINGE IVP PRN (17:07)
--- NOTE | 2017-06-20 17:28 | Invasive Diagnostic Lab Proc ---
Name: Vicky Madden Date of Study: 06/20/2017 Date: 1950 Ht: 66.1in Medical Record#: [id number] Age: 67 Wt: 193.08lb Gender: Female BSA: 1.97 Order #: [id number] BMI: 31.03 Physicians Procedure Physician: Noman Anthony MD, [facility] Referring MD: Referring MD: Staff Name Position Time In Sites, Ginny RT (R) Monitor 04:22 PM Paige Moreira RN Commissary Worker 04:23 PM Karolina Dominguez RT (R) Scrub 04:23 PM Indications Indication Non-Stemi Procedures Performed Procedure L HRT ARTERY/VENTRICLE ANGIO PRQ CARDIAC ANGIOPLAST 1 ART Pre-Procedure Checklist Informed consent is complete signed and on chart. H&P is on chart. ID band is on and ID verified with patient. Patient NPO for procedure The procedure was described for the patient and questions were answered. Blood Pressure: 158/73 ECG is on chart. Rhythm: NSR Plan of Care Patient will tolerate the procedure without complications. Adequate level of comfort will be maintained. Hemodynamics will remain stable Patient will recover from procedure without complications. Respiratory function will be maintained. Cardiac rhythm will remain stable. Patient temperature will be maintained. Patient and/or family have verbalized understanding of the procedure. Patient Education Chief Complaint/Reason for Test: Cardiac Cath Developmental Category: Adult (18-64 years) Developmentally Appropriate for Age: Yes Learning Barriers: None Education Needs: Procedure Education Method: Verbal Information Taught: Cardiac Cath Educational Evaluation: Able to repeat information Intravenous Access Time IV Size Location DC'd Fluid/Drip Rate Units RN 03:55 PM 20g 1 09/20" Patent On Arrival Lt Antecubital 0.9NaCl 25 ml/hr Paige Moreira RN Allergies Lipitor atorvastatin plastic neosporin, tape bacitracin polymyxin B Neomycin Vital Signs Time BP (mmHg) HR (bpm) O2 Sat. RR (bpm) LOC 03:56 PM 158 / 73 65 95 % 16 5 = Fully awake and oriented or at pre-proc level 04:23 PM / % 5 = Fully awake and oriented or at pre-proc level 04:25 PM 164 / 84 68 99 % 16 Procedural Medications Time Medication Dose Units Method Given By 04:23 PM Oxygen 2 L/min nasal cannula Piage Moreira RN 04:23 PM Versed 2 mg Intravenous Paige Moreira RN 04:23 PM Fentanyl 50 mcg Intravenous Paige Moreira RN 04:32 PM Lidocaine 2% 18 ml Subcutaneous Noman Anthony MD, [facility] 04:51 PM Heparin 4000 units Intravenous Paige Moreira RN 05:00 PM Nitroglycerin 200 mcg Intracoronary Noman Anthony MD 05:05 PM Plavix 300 mg Orally Paige Moreira RN ASA Classification: CLASS II- Mild systemic disease (i.e. well-controlled diabetes, hypertension, asthma, cigarette smoking) Ngozi Score Preprocedure Postprocedure Activity 2- Moves 4 extremities sustained head lift Activity 2- Moves 4 extremities sustained head lift Circulation 2- SBP +/= 20 points of pre-anesthetic level Circulation 2- SBP +/= 20 points of pre-anesthetic level Consciousness 2- Awake and alert oriented x 3 Consciousness 2- Awake and alert oriented x 3 O2 Saturation 2- Able to maintain O2 satruation of 92% on room air O2 Saturation 2- Able to maintain O2 satruation of 92% on room air Respiratory 2- Able to deep breathe and cough well Respiratory 2- Able to deep breathe and cough well Total Score 10 Total Score 10 Contrast Agent: Isovue Diagnostic Contrast: 99 ml Total Contrast: 99 ml Fluoro Dose: 418 mGy Activated Clotting Time Time Seconds to Clot 05:10 PM 256 Procedure Log Time Note Enter By 03:50 PM CathStat 04:21 PM Vitals capture started with the following parameters, Patient=Adult, Interval=5 min, Initial Ubxlixlb=423 mmHg, Deflation Rate=5 mmHg, Cuff placed on Left Arm 04:21 PM Recorded ECG: HR=67 Condition=Condition 1 04:22 PM Pt arrived to laboratory clerk 2 at 16:22 tsites 04:22 PM Ginny Meadows RT (R) Position: Monitor Time in: 16:22 tsites 04:23 PM Paige Moreira RN Position: Commissary Worker Time in: 16:23 tsites 04:23 PM Karolina Dominguez RT (R) Position: Scrub Time in: 16:23 tsites 04:23 PM Patient charges- Angio tray pack, Navilyst 3mm J, Pulse Oximetry and ACIST tubing and transducer tsites 04:23 PM Physician arrived 16:23 tsites 04:23 PM Meet and greet completed tsites 04:23 PM Sign in performed according to hospital policy. tsites 04:23 PM Procedure start 16:23 tsites 04:23 PM Case Delayed No tsites 04:23 PM Hair removed from procedure site in holding area using clippers. Bilateral groin prepped with Chloraprep by Paige Moreira RN, safety strap applied then patient was draped. Skin intact. tsites 04:23 PM Time: 16:23 Oxygen on at 2 L/min per nasal cannula by Paige Moreira RN tsites 04: PM Time: 16:23 Versed 2 mg Intravenous Given by Paige Moreira RN tsites 04:23 PM Time: 16:23 Fentanyl 50 mcg Intravenous Given by Paige Moreira RN tsites 04:23 PM Time: 16:23 Patient comfortable and pain free: Yes tsites 04:24 PM Time: 16:23LOC: 5 = Fully awake and oriented or at pre-proc level tsites 04:24 PM Clinical Presentation: Non-STEMI tsites 04:24 PM NIBP STAT measurement started. 04:25 PM HR=68 bpm, JGCU=952/84 mmhg, SpO2=99 %, Resp=16 B/min 04:28 PM Pressure channel 3 zeroed. 04:32 PM Time out performed according to hospital policy tsites 04:33 PM Time: 16:32 18 ml Lidocaine 2% to right groin Subcutaneous Given by Noman Anthony MD, [facility] tsites 04:38 PM Micro-Introducer Kit utilized for sheath placement tsites 04:38 PM Access obtained by percutaneous puncture. 5Fr 10cm Terumo [place] sheath placed in right Femoral artery. [id number] tsites 04:38 PM 5Fr FL 4 catheter inserted over the wire DN tsites 04:38 PM 0.035 145cm Navilyst 3mmJ wire [id number] tsites 04:39 PM Recorded Pressure: Ao, HR=66, Condition=Condition 1 (Aorta) Ao 157/70/102 04:39 PM LCA angiography performed in multiple views. tsites 04:40 PM wire reinserted catheter removed tsites 04:41 PM 5Fr FR 4 catheter inserted over the wire DN tsites 04:41 PM RCA angiography performed in multiple views. tsites 04:41 PM Recorded Pressure: Ao, HR=66, Condition=Condition 1 (Aorta) Ao 112/62/84 04:41 PM wire reinserted catheter removed tsites 04:42 PM 5Fr Pigtail catheter inserted over the wire [facility] tsites 04:42 PM Catheter selectively placed in left ventricle tsites 04:43 PM Recorded Pressure: LV, HR=66, Condition=Condition 1 (Left Ventricle) LV 146/2/10 04:47 PM Recorded Pressure: LV, Ao, HR=65, Condition=Condition 1 (Left Ventricle) LV 160/-2/11, (Aorta) Ao 145/58/92 04:47 PM Bolus angiogram of left Ventricle complete: 10 ml/sec for a total of 20 mls tsites 04:49 PM Coronary Dominance: right tsites 04:49 PM Lesion found in Mid LAD. Pre Stenosis: 30 Pre GEREMIAS Flow: tsites 04:49 PM Lesion found in 1st Diagonal. Pre Stenosis: 70 Pre GEREMIAS Flow: tsites 04:50 PM Bolus angiogram of right Femoral complete: 2 ml/sec for a total of 4 mls tsites 04:51 PM PCI Status Urgent tsites 04:51 PM PCI Indication: PCI for high risk Non-STEMI or unstable angina tsites 04:51 PM Sheath exchanged for a 6 Fr 11 cm Cordis Althea sheath [id number] tsites 04:51 PM Time: 16:51 Heparin 4000 units Intravenous Given by Paige Moreira RN tsites 04:52 PM 6Fr EBU 3.5 eZ Systemstronic guide catheter was used to cannulate the PCI vessel successfully. reused? No tsites 04:53 PM Inflation device was opened. tsites 04:53 PM .014 [place] 180cm guide wire across target lesion- successful. reused? No tsites 04:53 PM .014 [place] 182cm guide wire across target lesion- successful. reused? No tsites 04:54 PM 2.0 mm x 8 mm Emerge Monorail balloon across target lesion- successful. reused? No tsites 04:56 PM PCI lesion in Mid Circumflex. tsites 04:57 PM Lesion found in Mid Circumflex. Pre Stenosis: 80 Pre GEREMIAS Flow: tsites 04:59 PM Balloon inflated @ 10 bonita for 18 seconds tsites 04:59 PM Balloon inflated @ 10 bonita for 23 seconds tsites 05:00 PM Time: 17:00 Nitroglycerin 200 mcg Intracoronary Given by Noman Anthony MD tsites 05:04 PM Guide wire removed intact. tsites 05:05 PM Guide catheter removed intact. tsites 05:05 PM Time: 17:05 Plavix 300 mg Orally Given by Paige Moreira RN tsites 05:06 PM pt states chest pain and breathing improved after ballooning tsites 05:06 PM ACT drawn tsites 05:07 PM Procedure completed at 17:07 tsites 05:08 PM Sign out completed: Radiation Dose 418 mGy Fluoro Time: 3.0 Isovue 370 - 200ml contrast 99 ml given by Noman Anthony MD, [facility]. Complications: NoneCardiac Rehab Consult needed: YesConfirmed administered medications: Yes tsites 05:08 PM Isovue 370 - 200ml,1 Bottle(s) used. tsites 05:08 PM Sheath left in place to be pulled on floor/holding areaV+Pad tsites 05:08 PM Post ECG NSR tsites 05:08 PM Post Blood Pressure 164/84 tsites 05:08 PM 17:08 Post Pulses Bilateral DP & PT 1+ tsites 05:08 PM Information taught Cardiac Cath and PCI tsites 05:08 PM Education needs Procedure, Plan of Care, and Responsibilities of Patient in Care tsites 05:08 PM Learning barriers :None tsites 05:08 PM Education Methods Verbal tsites 05:08 PM Education evaluation Able to repeat information tsites 05:08 PM Site status No bleeding/hematoma - Rt Groin as reported by Karolina Dominguez RT (R) at 17:08 tsites 05:08 PM Opsite applied tsites 05:08 PM Plavix, Effient or Brilinta given Yes tsites 05:08 PM Delay to floor No tsites 05:09 PM Family placed in consult room. tsites 05:09 PM Complications: None tsites 05:10 PM At 17:10 the ACT was 256 seconds. tsites 05:15 PM Report given to deepali FITZGERALD Pt taken to 2N Room #9. 17:15 tsites 05:16 PM Patient out of room: 17:16 tsites 05:18 PM Mid/Distal Left Anterior Descending Coronary Artery and diagonal branches with 70% stenosis. If graft is supplying this area, 0 % stenosis tsites 05:18 PM Circumflex, Obtuse Marginal, Left Posterior Descending, and Left Posterolateral Coronary Arteries with 80 % stenosis. If graft is supplying this area, 0 % stenosis tsites Complications Complication None None Hemodynamics Pressures Site Systolic/A Wave Diastolic/V Wave Mean AO 157 70 102 AO 112 62 84 LV 146 2 10 LV 160 -2 11 AO 145 58 92 Post Procedure Information Blood Pressure: 164/84 mmHg Rhythm: NSR Post procedural instructions were given Closure Device Time Device Success/Fail 06/20/2017 5:09:00 PM Manual Compression Site Checks Time Location Status Staff Sheath In? Note 05:08 PM Rt Groin No bleeding/hematoma Karolina Dominguez RT (R) Pulses Time Site Pre-Procedure Post-Procedure Note 06/20/2017 3:55:00 PM Bilateral DP 2+ 06/20/2017 3:55:00 PM Bilateral PT 1+ 5:08:00 PM Bilateral DP & PT 1+ Updated by Ginny Meadows RT (R) on 06/20/2017 5:20:59 PM Ginny Meadows RT electronically signed on 06/20/2017 5:22:54 PM with status of Final
[2017-06-20] MEDS: Furosemide 40 MG TABLET PO SCH (18:50)
[2017-06-20] MEDS ORDERED: *HR* Atropine Sulfate 1 MG/10 ML SYRINGE ONE (20:48)
--- NOTE | 2017-06-20 22:56 | Electrocardiograph Report ---
[facility] Test Date: 2017-06-20 Pat Name: Vicky Madden Department: 103 Room: 2N09 Gender: F Surface Grinder: YOSEF : 1950 Requested By: Adela Pérez Order Number: [id number] Reading MD: Abdelrahman Cunningham MD Measurements Intervals [place] Rate: 74 P: 70 [place]: 220 QRS: -44 QRSD: 113 T: 104 QT: 386 QTc: 413 Interpretive Statements SINUS RHYTHM WITH OCCASIONAL SUPRAVENTRICULAR PREMATURE COMPLEXES LEFT VENTRICULAR HYPERTROPHY AND ST-T CHANGE Electronically Signed On 06-20-2017 22:54:59 EDT by Abdelrahman Cunningham MD
[2017-06-21 01:38] LABS: Basophils # 0.1 K/mcL (0.0-0.2); Basophils % 0.9 %; Hemoglobin 9.3 g/dL (11.5-15.4); Immature Granulocytes % 1.9 % (0-4); Immature Platelets 1.7 % (1.1-6.1); Lymphocytes # 1.4 K/mcL (0.6-4.6); Lymphocytes % 24.1 %; Mean Corpuscular HGB Conc 32.1 g/dL (31.6-35.5); Mean Corpuscular Hemoglobin 30.7 pg (28.0-33.3); Mean Corpuscular Volume 95.7 fL (83.0-100.0); Mean Platelet Volume 9.2 fL (9.4-12.4); Monocytes # 0.5 K/mcL (0.0-1.3); Monocytes % 8.1 %; Neutrophils # 3.8 K/mcL (1.6-8.9); Platelet Count 188 K/mcL (140-400); Red Blood Count 3.03 M/mcL (3.82-4.97); Red Cell Distribution Width 15.8 % (11.5-14.5)
[2017-06-21 01:50] LABS: Calcium 9.4 mg/dL (8.6-10.8); Potassium 5.2 mEq/L (3.5-4.5)
[2017-06-21] MEDS: Insulin LISPRO 300 UNITS/3 ML VIAL SQ SCH ×2 (07:55→12:28)
[2017-06-21] MEDS ORDERED: 0.9 % Sodium Chloride 250 ML IVC PRN (07:55)
[2017-06-21] MEDS ORDERED: 0.9 % Sodium Chloride 1,000 ML PRIME SCH (08:00)
--- NOTE | 2017-06-21 10:10 | Cardiology Progress Note ---
Date of Encounter: 06/21/17 Time of Encounter: 10:03 Assessment and Plan (1) NSTEMI (non-ST elevated myocardial infarction) Current Visit: Yes Status: Acute Patient had continued chest pain yesterday despite being on a nitro drip and continued to have the pain after the nitro had been increased. Her troponin trended upward so she was taken to the director of cath lab for a LHC. The patient states that her chest pain is still present but has been improving since her cath. Repeat ekg was obtained and showed sinus rhythm that is unchanged from yesterdays EKG. Recommend aspirin and plavix for one month and follow up with cardiology. Patient should avoid soaking in the bath tub, driving or lifting anything heavier than 10lbs for 1 week. We will sign off of the case at this time. Cath report from 06/20/17 showed The LMCA is angiographically free of disease. The Mid LAD has patent stents present from a previous procedure. The 1st Diagonal is small in size. There is a 30% stenosis in the Mid LAD. There is a 50 -60% stenosis in the Distal Diagonal. There is a 8 mm long, 70% stenosis in the Mid Circumflex. Pre GEREMIAS flow 3. The lesion has thrombus present. An intervention was performed on the Mid Circumflex with a final stenosis of 20-30% . There were no lesion complications. The final GEREMIAS flow was 3. Patient's symptoms improved after PTCA. The Proximal RCA has patent stents present from a previous procedure with 20% in stent restenosis. The Right PDA has mild disease. (2) CAD (coronary artery disease) Current Visit: Yes Status: Acute Patient has a known history of CAD. Patient has had 5 stents placed in the past. Patient had continued chest pain yesterday despite nitro drip. Her troponin trended upward so she was taken to the director of cath lab. Recommend patient take aspirin and plavix for antiplatelet therapy for one month and to follow up with cardiology. Cath report from 06/20/17 showed The LMCA is angiographically free of disease. The Mid LAD has patent stents present from a previous procedure. The 1st Diagonal is small in size. There is a 30% stenosis in the Mid LAD. There is a 50 -60% stenosis in the Distal Diagonal. There is a 8 mm long, 70% stenosis in the Mid Circumflex. Pre GEREMIAS flow 3. The lesion has thrombus present. An intervention was performed on the Mid Circumflex with a final stenosis of 20-30% . There were no lesion complications. The final GEREMIAS flow was 3. Patient's symptoms improved after PTCA. The Proximal RCA has patent stents present from a previous procedure with 20% in stent restenosis. The Right PDA has mild disease The last Echo was done on 03/18/17 Technically sub-optimal due to poor echocardiographic windows.LVEF 35-40%. Normal LV chamber size and function. Mild concentric left ventricular hypertrophy. Moderate global left ventricular systolic dysfunction. Atypical septal motion consistent with bundle branch block. Mildly dilated right ventricle. Mild right ventricular hypokinesis. Indeterminate diastolic function. Mild-moderate mitral regurgitation. Mild tricuspid regurgitation. Moderate pulmonary hypertension. Estimated RVSP is 49 mmHg. Qualifiers: Coronary Disease-Associated Artery/Lesion type: [place] artery [place] vs. transplanted heart: [place] heart Associated angina: angina presence unspecified Qualified Code(s): I25.10 - Atherosclerotic heart disease of [place] coronary artery without angina pectoris (3) Chest pain Current Visit: Yes Status: Acute Patient states that her chest pain has been improving since her heart cath yesterday. However she still is having some chest pain located in the center of her chest but states it has improved after having the heart cath.. . Repeat ekg was obtained and showed sinus rhythm that is unchanged from yesterdays EKG. Recommend aspirin and plavix for one month and follow up with cardiology. Qualifiers: Chest pain type: unspecified Qualified Code(s): R07.9 - Chest pain, unspecified (4) Troponin level elevated Current Visit: Yes Status: Acute Patient had elevated troponins that were trending upward with ongoing chest pain despite a nitro drip so she was taken to the director of cath lab for a LHC. Troponin trended to 0.66. Do not need to continue to trend troponins at this time. Recommend aspirin and plavix for one month and follow up with cardiology (5) Atrial fibrillation Current Visit: Yes Status: Acute Patient has a history of Atrial fibrillation. Most recent EKG showed sinus rhythm. Patient is currently being anticoagulated with warfarin. Qualifiers: Atrial fibrillation type: unspecified Qualified Code(s): I48.91 - Unspecified atrial fibrillation (6) Hypertension Current Visit: Yes Status: Chronic Patient has a history of hypertension. Pateint reports she had a blood pressure of 208/110 yesterday morning at the dialysis center. Most recent bp was 137/71. This is being managed by the primary service Qualifiers: Hypertension type: unspecified Qualified Code(s): I10 - Essential (primary ) hypertension (7) ESRD (end stage renal disease) on dialysis Current Visit: Yes Status: Acute Patient has a known history of ESRD requiring dialysis. She states that she normally goes to dialysis Sunday, Sunday and Sunday. Most recent Cr 7.52 and GFR 5. Patient was receiving dialysis this morning when I examined her. Nephrology has been consulted. (8) Diabetes Current Visit: No Status: Chronic Patient has a history of diabetes and uses insulin. This is being managed by the primary service. Qualifiers: Diabetes mellitus type: type 2 Diabetes mellitus complication status: with unspecified complications Diabetes mellitus enterprise account manager insulin use: with enterprise account manager use Qualified Code(s): E11.8 - Type 2 diabetes mellitus with unspecified complications; Z79.4 - retirement (current) use of insulin Discussion w patient/family: The assessment and plan as outlined above was discussed with the patient and/or family members who expressed understanding and agreement. All questions were answered. Thank you for involving us in the care of your patient. Please call with any questions. Subjective Principal diagnosis: NSTEMI Interval history: Yesterday the patient had ongoing chest pain despite being on a nitro drip. She also had a rise in her troponin so she was taken to the director of cath lab. Patient states is doing better today. She states that she did not get much sleep last night becasue she was still having chest pain. She states the pain has improved from yesterday. She states that her current chest pain in located in the center of her chest and describes it as a dull ache. She rates her pain as a 3/10 and states that the apin has been improving since the heart cath. She does state that she has had some left arm pain as well. She states that this is the same pain that she was having before her heart cath but it is not as severe. She states that after the cath heart chest pain has improved. Patient denies any worsening of her shortness of breath Objective Vital Signs, Last 4 Hours Temp Pulse Resp BP Pulse Ox 06/21/17 09:40 63 06/21/17 08:16 97.6 F 63 16 137/71 100 General: Conversant, No Apparent Distress HEENT: Atraumatic, Normocephaly, Mucus Membranes Moist Neck: No JVD, Normal carotid pulses Cardiac: Reg Rate and Rhythm, Normal S1 and S2, No Murmur Lungs: Normal Breath Sounds, Other (Mild rales in lower lung easley.) Neuro: Alert and responsive, No focal deficits noted Abdomen: Soft, Non-Tender Skin: No rashes noted on visualized skin Extremities: No Clubbing, No Cyanosis, Normal Pulses, Other (Mild swelling in bilateral lower extremities.) Results 06/21/17 01:21 06/21/17 01:21 Lab Results 06/20/17 06/20/17 06/21/17 12:08 14:40 01:21 WBC 5.8 Hgb 9.3 L Hct 29.0 L Plt Count 188 Sodium Potassium Chloride Carbon Dioxide BUN Creatinine Glucose Calcium Magnesium Troponin I 0.52 H* 0.66 H* 06/21/17 01:21 WBC Hgb Hct Plt Count Sodium 138 Potassium 5.2 H Chloride 100 Carbon Dioxide 23 BUN 72 H Creatinine 7.52 H Glucose 115 H Calcium 9.4 Magnesium 2.0 Troponin I - Imaging and Cardiology Chest Xray: report reviewed Echo: report reviewed Cardiac cath: report reviewed - EKG Interpretation EKG results cardiology: personally reviewed, sinus rhythm (With first degree AV Block) - VTE Documentation of Mechanical Device: Intermittent pneumatic compression device Consult Discharge Plan - Plan Referrals: Eleazar Calhoun MD [Primary Care Provider] - 07/02/17 11:00 am Coco Fritz MD [Partnered Physician] - (CARDIOLOGY OFFICE WILL CALL PATIET AT HOME WITH A FOLLOW UP APPOINTMENT)
--- NOTE | 2017-06-21 10:36 | Nephrology Progress Note ---
Date of Encounter: 06/21/17 Time of Encounter: 10:25 - Assessment and Plan (1) ESRD (end stage renal disease) on dialysis Current Visit: Yes Status: Acute S/P LHC-PTCA. HD today, since having missed yesterday. Orders given. Will do HD again tomorrow, keeping with [facility] schedule. Subjective Principal diagnosis: NSTEMI Interval history: Seen on HD. S/P LHC with PTCA. States still has some chest discomfort. Objective - Vital Signs Vital signs: Vital Signs Temp Pulse Pulse Resp BP Pulse Ox 06/21/17 09:40 63 06/21/17 08:16 97.6 F 63 16 137/71 100 06/21/17 04:11 18 100 06/20/17 23:24 98.0 F 65 15 112/58 96 06/20/17 22:52 16 100 06/20/17 22:00 64 139/73 06/20/17 21:50 61 66 136/74 99 06/20/17 21:45 62 66 137/72 99 06/20/17 21:40 63 66 142/73 99 06/20/17 21:35 63 66 148/67 93 06/20/17 21:30 64 66 161/83 98 06/20/17 21:25 65 66 178/79 97 06/20/17 21:20 66 66 168/78 99 06/20/17 21:15 65 65 166/74 99 06/20/17 21:10 64 168/71 06/20/17 21:05 64 163/73 06/20/17 21:00 65 174/75 06/20/17 20:55 65 160/71 06/20/17 20:40 68 181/73 06/20/17 20:25 68 150/71 06/20/17 20:10 69 157/77 06/20/17 20:05 69 173/78 06/20/17 20:00 67 177/80 06/20/17 19:55 68 184/78 06/20/17 19:45 66 184/81 06/20/17 19:08 97.9 F 65 16 188/86 97 06/20/17 18:45 67 171/75 94 06/20/17 18:30 68 187/82 95 06/20/17 18:15 67 175/84 95 06/20/17 18:00 69 16 165/77 06/20/17 17:45 67 18 152/77 06/20/17 17:38 66 177/85 97 06/20/17 12:58 65 16 158/73 96 06/20/17 12:09 69 16 165/76 97 06/20/17 12:00 70 17 164/75 97 06/20/17 11:44 97.5 F L 71 16 183/69 06/20/17 10:43 16 98 Intake and Output 06/20/17 06/21/17 06/21/17 23:59 07:59 15:59 Intake Total 56 / 56 240 / 240 240 / 240 Output Total 800 / 800 150 / 150 Balance 56 / 56 -560 / -560 90 / 90 Intake: IV Fluids 56 / 56 0 / 0 Nitroglycerin Premix 25 MG/250 56 / 56 0 / 0 ML 25 mg In 250 ml @ 5 MCG/MIN 3 mls/hr IVC .Q24H DELIO Rx#: [id number] Oral 240 / 240 240 / 240 Output: Urine 800 / 800 Catheter 150 / 150 Other: Meal Breakfast Percent of Meal Consumed 100% # Voids 1 Blood Glucose* 75 69 - General Appearance General appearance: Present: well-developed, well-nourished, appears started age , obese EENT: Present: mucous membranes moist Neck: Present: no JVD Respiratory: Present: clear Cardiology: Present: no edema, regular rate, regular rhythm Gastrointestinal: Present: normoactive bowel sounds, no tenderness Integumentary: Present: warm and dry Neurologic: Present: alert and oriented x3 Psychiatric: Present: mood/affect appropriate, cooperative - Lab 06/21/17 01:21 06/21/17 01:21 Most recent lab results Calcium 9.4 mg/dL (8.6-10.8) 06/21/17 01:21 Magnesium 2.0 mg/dL (1.6-2.6) 06/21/17 01:21 - VTE Documentation of Mechanical Device: Intermittent pneumatic compression device Consult Discharge Plan - Plan Referrals: Eleazar Calhoun MD [Primary Care Provider] - 07/02/17 11:00 am
[2017-06-21] MEDS ORDERED: Aspirin 325 MG TABLET PO ONE (11:39)
[2017-06-21] MEDS: Nitroglycerin 25 MG/250 ML INFUS..BTL IVC SCH (12:27)
[2017-06-21] MEDS: hydrALAZINE 25 MG TABLET PO SCH (12:27)
[2017-06-21] MEDS: Insulin DETEMIR 100 UNIT/ML X5UNITS SQ SCH (12:27)
[2017-06-21 12:30] VITALS: BP 104/52
[2017-06-21] MEDS: Metoprolol XL (24 HR) Succ 50 MG TAB.ER.24H PO SCH (12:30)
[2017-06-21] MEDS: Cholecalciferol (D-3) 1,000 UNIT TABLET PO SCH (12:33)
[2017-06-21] MEDS: Isosorbide MONOnitrate (24 HR) 60 MG TAB.ER.24H PO SCH (12:33)
[2017-06-21] MEDS: Gabapentin 100 MG CAPSULE PO SCH (12:33)
[2017-06-21] MEDS: Furosemide 40 MG TABLET PO SCH (12:35)
--- NOTE | 2017-06-21 14:37 | Discharge Summary ---
Date of Encounter: 06/21/17 Time of Encounter: 14:00 - Discharge Diagnosis (1) Chest pain Priority: Primary Status: Acute Qualifiers: Chest pain type: unspecified Qualified Code(s): R07.9 - Chest pain, unspecified (2) Hypertensive urgency Priority: Primary Status: Acute (3) CHF (congestive heart failure) Priority: Secondary Status: Chronic Qualifiers: Congestive heart failure type: unspecified congestive heart failure type Congestive heart failure chronicity: chronic Qualified Code(s): I50.9 - Heart failure, unspecified (4) Diabetes Priority: Secondary Status: Chronic Qualifiers: Diabetes mellitus type: type 2 Diabetes mellitus complication status: with kidney complications Diabetes mellitus complication detail: with chronic kidney disease Diabetes mellitus assisted insulin use: with exterminator helper use Chronic kidney disease stage: on chronic dialysis Qualified Code(s): E11.22 - Type 2 diabetes mellitus with diabetic chronic kidney disease; N18.6 - End stage renal disease; Z99.2 - Dependence on renal dialysis; Z99.2 - Dependence on renal dialysis; Z99.2 - Dependence on renal dialysis; N18.6 - End stage renal disease; N18.6 - End stage renal disease; N18.6 - End stage renal disease ; Z79.4 - [facility] (current) use of insulin; Z79.4 - [facility] (current) use of insulin; Z79.4 - [facility] (current) use of insulin; Z79.4 - termite helper ( current) use of insulin; Z99.2 - Dependence on renal dialysis (5) ESRD (end stage renal disease) on dialysis Priority: Secondary Status: Chronic (6) COPD (chronic obstructive pulmonary disease) Priority: Secondary Status: Chronic Qualifiers: COPD type: unspecified COPD Qualified Code(s): J44.9 - Chronic obstructive pulmonary disease, unspecified (7) Atrial fibrillation Priority: Secondary Status: Chronic Qualifiers: Atrial fibrillation type: unspecified Qualified Code(s): I48.91 - Unspecified atrial fibrillation (8) CAD (coronary artery disease) Priority: Secondary Status: Chronic Qualifiers: Coronary Disease-Associated Artery/Lesion type: [place] artery [place] vs. transplanted heart: [place] heart Associated angina: with unstable angina Qualified Code(s): I25.110 - Atherosclerotic heart disease of [place] coronary artery with unstable angina pectoris - Discharge Medications Prescriptions: Aspirin 81 mg PO DAILY #30 tab.chew Home Medications: Cholecalciferol (Vitamin D3) [Vitamin D3] 2,000 unit PO WETHFR 03/17/17 [History ] Clopidogrel [Plavix] 75 mg PO DAILY 03/17/17 [History] Furosemide [Lasix] 60 mg PO BID 03/17/17 [History] Gabapentin [Neurontin] 100 mg PO TID 03/17/17 [History] Hydralazine HCl 50 mg PO BID 03/17/17 [History] Insulin Glargine,Hum.rec.anlog [Lantus Solostar] 18 unit SQ BID 03/17/17 [ History] Insulin LISPRO [Humalog] 4 - 16 unit SQ TIDWM 03/17/17 [History] Acetaminophen [Tylenol] 650 mg PO Q6HR PRN #0 tablet 03/22/17 [Rx] Albuterol Sulfate [Albuterol Inhaler] 2 puff IH Q6HR #1 hfa.aer.ad 03/22/17 [Rx] Metoprolol XL (24 HR) Succ [Toprol Xl] 100 mg PO DAILY #30 tab.er.24h 03/22/17 [ Rx] Calcitriol [Rocaltrol] 0.5 mcg PO DAILY 06/20/17 [History] Isosorbide MONOnitrate [Isosorbide Mononitrate ER] 120 mg PO DAILY 06/20/17 [ History] Quinine Sulfate [Qualaquin] 324 mg PO TID 06/20/17 [History] Warfarin perPT [Coumadin perPT] 7.5 mg PO SUTUTHSA 06/20/17 [History] Warfarin perPT [Coumadin perPT] 10 mg PO MOWEFR 06/20/17 [History] Aspirin 81 mg PO DAILY #30 tab.chew 06/21/17 [Rx] Allergies/Adverse Reactions: 3 Allergy/AdvReac Type Severity Reaction Status Date / Time bacitracin Allergy Rash Verified 02/20/17 19:14 [From Neosporin ([id number])] Neomycin Allergy Rash Verified 02/20/17 19:14 [From Neosporin ([id number])] polymyxin B Allergy Rash Verified 02/20/17 19:14 [From Neosporin ([id number]-[id number]-[id number])] atorvastatin AdvReac Cramping Verified 03/17/17 14:40 of the Muscles plastic Allergy Rash Uncoded 02/20/17 19:14 tape Allergy Rash Uncoded 02/20/17 19:14 Procedures/tests Complete & Pending: Procedures Performed prior 72 hours Category Date Time Status CL Cardiac Catheterization [CL] Routine 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 06/20/17 15:44 Completed ECG 12 lead ECG [ECG] Routine Y 06/20/17 17:07 Completed EKG [ECG 12 lead ECG] [ECG] Stat Y 06/21/17 10:35 Ordered Date of admission: 06/20/17 08:39 Primary care physician: Eleazar Calhoun MD Consults: 06/20/17 12:30 Consult to Dialysis [CONS] ONCE 06/21/17 07:51 Consult to Cardiac Rehabilitation-Phase1 [CONS] Routine Comment: Reason for Consult: PCI Call Completed: No 06/21/17 08:00 Consult to Dialysis [CONS] ONCE Discharging clinician: Caron Bauer Anticipated date of discharge: 06/21/17 - Patient Status Disposition: Home, Self-Care Condition: Fair Functional capacity at discharge: independent ambulation Overall status at discharge: patient is progressing back to baseline - Discharge Instructions Instructions: Aspirin (By mouth), Myocardial Infarction (GEN) Follow Up With: Eleazar Calhoun MD [Primary Care Provider] - 07/02/17 11:00 am Coco Fritz MD [Partnered Physician] - (CARDIOLOGY OFFICE WILL CALL PATIET AT HOME WITH A FOLLOW UP APPOINTMENT) Additional Instructions: RISK FACTORS: STOP SMOKING: If you smoke, STOP. Smoking or tobacco use significantly increases your risk of heart disease because nicotine causes the arteries to narrow or constrict. It also causes fats to stick to the artery. Your chances of having a heart attack are greatly increased if you continue to smoke. For more information, call the education line for smoking cessation 9-240-PYZMYCK EAT A LOW FAT/CHOLESTEROL/SODIUM DIET: This diet may help reduce your chances of having a heart attack. LIFTING: Avoid lifting anything more than 10 pounds for 5-7 days Prior to straining, laughing, sneezing and/or coughing, apply manual pressure directly over insertion site. ACTIVITY: You may walk or climb stairs as tolerated You can resume sexual activity as tolerated In general, you are encouraged to engage in a minimum of 30 minutes or more of moderate intensity physical activity, such as brisk walking, daily or at least 3 -4 times weekly BATHING Do not submerge the site into water (bath tub, hot tub, swimming pool) for 1 week. This can be a source for infection into the blood stream. You may shower after 24 hours SITE CARE: After 24 hours, you may remove the dressing and leave the site open to air. Keep the site clean and dry. Clean gently and pat dry. You can expect bruising and tenderness that gradually resolve within a week or two. Return to work as instructed per your physician Resume driving as instructed per physician Keep all scheduled follow up appointments Resume medications as instructed IMPORTANT: If prescribed a Platelet Aggregation Inhibitor such as, Plavix, Brilinta or Effient: Duration of therapy is minimum one year These medications are often used in combination with Aspirin in prevention of future heart attacks Never discontinue unless consult with your Bioinformatics Specialist STROKE (CVA) Risk factors for a stroke are: Age, cigarette smoking, diabetes, excessive alcohol consumption, family history, high blood pressure, overweight, physical inactivity, prior stroke, heart attack, diagnosis of carotid artery stenosis or other artery disease. Warning signs: Sudden numbness or weakness of the face, arm or leg; especially on one side of the body, sudden confusion, trouble speaking or understanding, sudden trouble seeing in one or both eyes, sudden trouble walking, dizziness, loss of balance or coordination, sudden severe headache with no cause. Call 911 or go to the Emergency Room. CONGESTIVE HEART FAILURE: If you have been diagnosed with Congestive Heart Failure (CHF) and your symptoms return, make an appointment with your physician Weigh yourself daily. Notify your physician if you have a weight gain of two or more pounds in one day or five or more pounds in one week. If you experience any difficulty breathing, please call 911 BLEEDING: Although the risk of bleeding is minimal, it can happen. If you have any bleeding from the site, apply firm pressure above the puncture site for 10-15 minutes. If the bleeding does not stop, continue manual pressure and call 911 Contact your physician if: You develop a fever greater than 101 degrees Fahrenheit Your site becomes reddened or has any drainage You have an increase in pain or burning at the site or if a large knot forms at the site. If you experience chest pain, shortness of breath, dizziness, or extreme tiredness, stop the activity and rest. Please notify your physicians office if you experience any of these symptoms and they are not relieved by rest please call 911!F/up with Cardiology in 1-2 weeks F/up for HD 3 times/week- MWF - Diet and Activity Activity: resume usual activities as tolerated Diet: diabetic diet, low fat, low cholesterol, low salt diet, other (renal diet) Hospital course: Ms. Madden is a 67 year old female with the above medical problems, was admitted with atypical retrosternal chest pain. EKG showed no significant changes but she was noted to have elevated troponin along with ongoing chest pain. She was started on IV nitroglycerin drip and continued on beta rancho, statin, Plavix; she is also on Coumadin for atrial fibrillation and INR was noted to be therapeutic. Cardiology was consulted and patient underwent left heart catheterization and noted to have severe 1 vessel coronary artery disease , received PTCA to mid circumflex artery. She is recommended to start aspirin along with Plavix and Coumadin for at least 30 days. Nephrology was consulted and patient underwent hemodialysis today, next session tomorrow. Patient is currently medically stable for discharge with outpatient cardiology follow-up. - Time Spent with Patient Total time spent providing and/or coordinating discharge services: Greater than 30 minutes (40 min) - Constitutional Vitals: Temp Pulse Resp BP Pulse Ox 97.9 F 63 18 104/52 100 06/21/17 12:25 06/21/17 09:40 06/21/17 12:25 06/21/17 12:25 06/21/17 08:16 General appearance: Present: A&O X 3, answers questions appropriately - Cardiovascular Cardiovascular exam: Present: RRR, +S1, +S2. Absent: diastolic murmur, gallop, rubs, systolic murmur - VTE Documentation of Mechanical Device: Intermittent pneumatic compression device
--- NOTE | 2017-06-22 08:29 | Electrocardiograph Report ---
[address] [place], [place] [address] Test Date: 2017-06-20 Pat Name: Vicky Madden Department: 110 Room: 2N09 Gender: F Head Lineman: DAVID : 1950 Requested By: Noman Anthony Order Number: [id number] Reading MD: Noman Anthony MD Measurements Intervals [place] Rate: 67 P: 70 NM: 226 QRS: -42 QRSD: 114 T: 61 QT: 416 QTc: 431 Interpretive Statements SINUS RHYTHM WITH FIRST DEGREE AV BLOCK BASELINE ARTIFACT INFERIOR MYOCARDIAL INFARCTION, OF INDETERMINATE AGE ANTEROSEPTAL MYOCARDIAL INFARCTION, OF INDETERMINATE AGE Electronically Signed On 06-22-2017 8:27:47 EDT by Noman Anthony MD
[2017-06-22] MEDS ORDERED: Aspirin 81 MG TAB.CHEW PO SCH (09:00)
--- NOTE | 2017-06-22 19:00 | Electrocardiograph Report ---
[address] [place] [address] Test Date: 2017-06-21 Pat Name: Vicky Madden Department: 110 Room: 2N09 Gender: F Weight Caller: DAVID : 1950 Requested By: Mayco Kiser Order Number: [id number] Reading MD: Noman Anthony MD Measurements Intervals [place] Rate: 71 P: 68 DE: 161 QRS: -38 QRSD: 110 T: 58 QT: 424 QTc: 447 Interpretive Statements SINUS RHYTHM WITH SINUS ARRHYTHMIA LEFT VENTRICULAR HYPERTROPHY AND ST-T CHANGE INFERIOR MYOCARDIAL INFARCTION, OF INDETERMINATE AGE ANTEROSEPTAL MYOCARDIAL INFARCTION, OF INDETERMINATE AGE Electronically Signed On 06-22-2017 18:58:39 EDT by Noman Anthony MD
[2017-06-23 11:34] LABS: CK-MB (CK isoenzymes) 0 % (0-4)
[2017-06-23 17:07] LABS: CK-MB (CK isoenzymes) 0 % (0-4); CK-MM (CK-isoenzymes) 100 % (96-100)
[2017-06-25 07:55] LABS: CK Total (Ck Isoenzymes) 37 U/L (20-180); CK-BB (CK isoenzymes) 0 % (0-0)
[2017-06-25 07:58] LABS: CK Total (Ck Isoenzymes) 50 U/L (20-180); CK-BB (CK isoenzymes) 0 % (0-0); CK-MM (CK-isoenzymes) 100 % (96-100)
== END 2017-06-21 15:50 | disposition home or self-care (01) ==
LOC: EMEROO 06:00 → 2ANU 06:00 → SUATTDRO 08:39 → 2ANU 09:46 → 2NNU 13:49
PROVIDERS: ADMIT Hospitalist; ATTEND Internal Medicine

== ENCOUNTER 2017-09-21 06:51 | Observation (INO) ==
[2017-09-21] MEDS ORDERED: 0.9 % Sodium Chloride 250 ML IVC ONE (07:08)
[2017-09-21] MEDS ORDERED: dilTIAZem HCl 100 MG in D5% in Water 50 ML IVC SCH (07:15)
[2017-09-21 07:22] LABS: Basophils # 0.1 K/mcL (0.0-0.2); Basophils % 0.9 %; Hematocrit 35.8 % (35.3-44.9); Hemoglobin 11.5 g/dL (11.5-15.4); Immature Granulocytes % 2.4 % (0-4); Lymphocytes # 1.6 K/mcL (0.6-4.6); Lymphocytes % 21.6 %; Mean Corpuscular HGB Conc 32.1 g/dL (31.6-35.5); Mean Corpuscular Volume 99.7 fL (83.0-100.0); Monocytes # 0.6 K/mcL (0.0-1.3); Monocytes % 7.5 %; Neutrophils # 5.1 K/mcL (1.6-8.9); Platelet Count 214 K/mcL (140-400); Red Blood Count 3.59 M/mcL (3.82-4.97); Red Cell Distribution Width 14.3 % (11.5-14.5); Segmented Neutrophils % 67.6 %
--- NOTE | 2017-09-21 07:31 | Emergency Department Note ---
Disposition Clinical Impression: Atrial fibrillation with RVR, ESRD (end stage renal disease) on dialysis Disposition: Admitted As Inpatient Condition: Fair Referrals: Eleazar Calhoun MD [Primary Care Provider] - Forms: ED Satisfaction Letter Time of Disposition: 08:47 Arrhythmia/Palpitations HPI - General Chief Complaint: ED Arrhythmia/Palpitations Stated Complaint: high heart rate at dialysis Time Seen by Provider: 09/21/17 07:00 Source: patient, EMS Limitations: no limitations Nursing Notes Reviewed: Yes Vital Signs Reviewed: Yes - History of Present Illness HPI Narrative: 67-year-old female history CAD, HTN, diabetes, atrial fibrillation, presents with rapid heart rate, she states she has a history of paroxysmal A. fib which is normally rate controlled she does not metoprolol as well as Coumadin, patient started noting that her heart was racing today about 5-10 minutes into her dialysis treatment. Patient dialyzes with Dr. Ruiz nephrology. She denies any chest pain or discomfort. She states that she just feels fluttering in her heart racing. She has had some cough and congestion but no temperatures greater than 100, she denies any fever denies flulike symptoms myalgias, denies any urinary tract infection symptoms. Patient also denies hemoptysis, melena, hematochezia. No hx of VTE. 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 Duration: constant Severity: mild Arrhythmia History: atrial fibrillation Associated symptoms: Denies: chest pain, shortness of breath, syncope, anxiety, diaphoresis - Related Data Home Medications Medication Instructions Recorded Confirmed Clopidogrel [Plavix] 75 mg PO DAILY 03/17/17 07/24/17 Furosemide [Lasix] 40 mg PO BID 03/17/17 07/24/17 Gabapentin [Neurontin] 100 mg PO TID 03/17/17 07/24/17 Hydralazine HCl 50 mg PO QID PRN 03/17/17 07/24/17 Insulin Glargine,Hum.rec.anlog 20 unit SQ BID 03/17/17 07/24/17 [Lantus Solostar] Insulin LISPRO [Humalog] 4 - 16 unit SQ TIDWM 03/17/17 07/24/17 Isosorbide MONOnitrate [Isosorbide 120 mg PO DAILY 06/20/17 07/24/17 Mononitrate ER] Quinine Sulfate [Qualaquin] 324 mg PO TID 06/20/17 07/24/17 Warfarin perPT [Coumadin perPT] 7.5 mg PO SUTUTHSA 06/20/17 07/24/17 Warfarin perPT [Coumadin perPT] 10 mg PO MOWEFR 06/20/17 07/24/17 Allopurinol [Zyloprim 100 MG] 200 mg PO DAILY 07/24/17 07/24/17 Calcium Acetate [Phos-LO] 1,334 mg PO TID 07/24/17 07/24/17 Previous Rx's Medication Instructions Recorded Acetaminophen [Tylenol] 650 mg PO Q6HR PRN #0 tablet 03/22/17 Albuterol Sulfate [Albuterol 2 puff IH Q6HR #1 hfa.aer.ad 03/22/17 Inhaler] Metoprolol XL (24 HR) Succ [Toprol 100 mg PO DAILY #30 tab.er.24h 03/22/17 Xl] Aspirin 81 mg PO DAILY #30 tab.chew 06/21/17 Allergies Allergy/AdvReac Type Severity Reaction Status Date / Time bacitracin Allergy Rash Verified 07/24/17 10:16 [From Neosporin ([id number]-net-[id number])] Neomycin Allergy Rash Verified 07/24/17 10:16 [From Neosporin (yuf-seg-opfez)] polymyxin B Allergy Rash Verified 07/24/17 10:16 [From Neosporin (ryc-lvu-njyxo)] atorvastatin AdvReac Cramping Verified 07/24/17 10:16 of the Muscles plastic Allergy Rash Uncoded 07/24/17 10:16 tape Allergy Rash Uncoded 07/24/17 10:16 All systems ED: reviewed and negative except as stated. Review of Systems: As Per HPI Constitutional: Denies: fever, chills Eyes: Denies: eye pain, eye discharge ENT ED: Denies: ear pain Cardiovascular: Reports: as per HPI, palpitations, dyspnea on exertion. Denies : chest pain Respiratory: Denies: cough, dyspnea Gastrointestinal: Denies: abdominal pain, nausea, melena Genitourinary: Denies: urgency, dysuria Musculoskeletal: Denies: back pain, neck pain Integumentary: Denies: rash Past Medical History - Past Medical History Attestation: Yes The following information was validated with the patient. Source: patient Medical history: Reports: CHF, coronary artery disease, diabetes, dialysis, hypertension, myocardial infarction, renal disease, other Surgical history: Reports: angioplasty/stent, cholecystectomy, hysterectomy, orthopedic, other, other Psychiatric history: Reports: no psych history PATTERN ILLUSTRATOR history: Reports: no PATTERN ILLUSTRATOR history - Social History Smoking Status: Never smoker Smokeless Tobacco Status: No Alcohol use: Reports: none Drug use: Reports: none Physical Exam Constitutional: Tachycardic irregular rhythm. Appears moderately uncomfortable Eyes: PERRLA, sclera anicteric ENT & Mouth: MM dry Neck: normal inspection, neck is supple Resp: CTA bilaterally, no resp distress CV: Tachycardic rate 140s irregularly irregular, no m/g/r GI: normal inspection, soft, no guarding or rigidity Neuro: A&O3, CNII-XII grossly intact, STEARNS Skin: Right-sided AV fistula with good palpable thrill - General Limitations: no limitations General appearance: alert, in no apparent distress Course Course Narrative: 67-year-old female with history of atrial fibrillation as a tachycardic rate in the 140s, no clear P waves, possible SVT versus A. fib, suspect atrial fibrillation will try Cardizem gentle fluids to 50 ML's given that she is on dialysis, full metabolic workup plan for hospital admission likely for atrial fibrillation RVR, also patient needs to finish her dialysis. - Reevaluation(s) Reevaluation #1: Patient was given a Cardizem bolus, she received have her bolus and then was from a Cardizem drip, her rate came down to sinus rhythm at 2018, and chest and sinus 79 bpm, no chest pain, INR and PTT elevated, troponin negative I did speak with the hospitalist Dr. Almanzar, will admit the patient for medicine admission for A. fib with RVR ESRD, also spoke with the metal off bearer Dr. Ruiz will do dialysis for the patient as needed in the hospital. Time: 08:46 - Consultations Consultation #1: Consentino consulted called in ED will see pt on floor. Time: 08:46 Vital Signs Temperature 97.9 F 09/21/17 06:54 Pulse Rate 141 09/21/17 06:54 Respiratory Rate 16 09/21/17 06:54 Blood Pressure 161/88 09/21/17 06:54 O2 Sat by Pulse Oximetry 99 09/21/17 06:54 Temperature 97.9 F 09/21/17 06:54 Pulse Rate 81 09/21/17 08:42 Respiratory Rate 18 09/21/17 08:42 Blood Pressure 141/74 09/21/17 08:42 O2 Sat by Pulse Oximetry 95 09/21/17 08:42 Oxygen Delivery Oxygen Delivery Nasal Cannula Arrhythmia/Palpitations - Differential Diagnosis Differential Diagnosis: Likely: palpitations, sinus tachycardia, artial arrhythmia, supraventricular tachycardia, ventricular tachycardia - Medical Records Medical records reviewed: Yes I reviewed the patient's medical records. - Lab Data Lab results reviewed: Yes I reviewed the patient's lab results. Result diagrams: 09/21/17 07:14 09/21/17 07:14 Lab Results 09/21/17 09/21/17 09/21/17 Range/Units 07:14 07:14 07:14 WBC 7.6 (4.3-11.1) K/mcL RBC 3.59 L (3.82-4.97) M/mcL Hgb 11.5 (11.5-15.4) g/dL Hct 35.8 (35.3-44.9) % MCV 99.7 (83.0-100.0) fL MCH 32.0 (28.0-33.3) pg MCHC 32.1 (31.6-35.5) g/dL RDW 14.3 (11.5-14.5) % Plt Count 214 (140-400) K/mcL MPV 10.0 (9.4-12.4) fL Immature Gran % 2.4 (0-4) % Seg Neutrophils % 67.6 % Lymphocytes % 21.6 % Monocytes % 7.5 % Eosinophils % 0.0 % Basophils % 0.9 % Neutrophils # 5.1 (1.6-8.9) K/mcL Lymphocytes # 1.6 (0.6-4.6) K/mcL Monocytes # 0.6 (0.0-1.3) K/mcL Eosinophils # 0.0 (0.0-0.6) K/mcL Basophils # 0.1 (0.0-0.2) K/mcL PT 44.9 H* (9.4-12.1) Seconds INR 4.0 APTT > 360.0 H* (26.0-36.0) Seconds Heparin Anti-Xa, Unfract 0.36 (0.30-0.70) IU/mL Sodium 137 (136-145) mEq/L Potassium 4.3 (3.5-5.1) mEq/L Chloride 101 (98-107) mEq/L Carbon Dioxide 22 L (23-29) mEq/L BUN 51 H (8-23) mg/dL Creatinine 6.29 H (0.60-1.20) mg/dL Est GFR ( Amer) 8 L (> 60) Est GFR (Non-Af Amer) 7 L (> 60) BUN/Creatinine Ratio 8 (6-26) Glucose 176 H (70-105) mg/dL Calculated Osmolality 302 H (280-300) Calcium 8.6 (8.6-10.3) mg/dL Magnesium 1.9 (1.6-2.6) mg/dL Total Bilirubin 0.3 (0.3-1.0) mg/dL AST 15 (13-39) Units/L ALT 18 (7-52) Units/L Alkaline Phosphatase 94 (34-104) Units/L Serum Total Protein 7.0 (6.4-8.9) g/dL Albumin 3.6 (3.5-5.7) g/dL Globulin 3.4 (2.4-3.5) g/dL Albumin/Globulin Ratio 1.1 (1.1-2.2) TSH 0.869 (0.340-5.600) mcIU/mL - Radiology Data Radiology results reviewed: Yes I reviewed the patient's radiology results. Chest X-Ray 09/21/17 07:07 IMPRESSION: Stable cardiomegaly with mild interstitial edema. Oral findings are stable from 06/20/2017. D/ / Valencia Jacobs MD / Valencia Jacobs MD Interpreting Provider: Valencia Jacobs MD - EKG Data EKG attestation: Yes I reviewed and interpreted this EKG. Rate: tachycardia Rhythm: A.Fib (141 curettes from 14 QTc 381 no acute ischemic changes however difficult to tell secondary to rate, inverted T waves in aVL, rate of 141 appears to be atrial fibrillation versus SVT) Interpretation: nonspecific ST-T wave changes - Core Measures AMI Core Measures Followed: No Measure Exclusions: not indicated
--- NOTE | 2017-09-21 07:32 | Emergency Department Note ---
Disposition Clinical Impression: Atrial fibrillation with RVR, ESRD (end stage renal disease) on dialysis Disposition: Admitted As Inpatient Condition: Fair Referrals: Eleazar Calhoun MD [Primary Care Provider] - Forms: ED Satisfaction Letter General Adult HPI - General Chief complaint: ED Arrhythmia/Palpitations Stated complaint: high heart rate at dialysis Time Seen by Provider: 09/21/17 07:14 Source: patient, EMS Limitations: no limitations Nursing Notes Reviewed: Yes Vital Signs Reviewed: Yes - History of Present Illness Pain Scale: 4 - Related Data Home Medications Medication Instructions Recorded Confirmed Clopidogrel [Plavix] 75 mg PO DAILY 03/17/17 09/21/17 Furosemide [Lasix] 40 mg PO BID 03/17/17 09/21/17 Gabapentin [Neurontin] 100 mg PO TID 03/17/17 09/21/17 Hydralazine HCl 50 mg PO BID PRN 03/17/17 09/21/17 Insulin Glargine,Hum.rec.anlog 20 unit SQ BID 03/17/17 09/21/17 [Lantus Solostar] Insulin LISPRO [Humalog] 4 - 16 unit SQ TIDWM 03/17/17 09/21/17 Isosorbide MONOnitrate [Isosorbide 120 mg PO DAILY 06/20/17 09/21/17 Mononitrate ER] Quinine Sulfate [Qualaquin] 324 mg PO TID 06/20/17 09/21/17 Allopurinol [Zyloprim 100 MG] 200 mg PO DAILY 07/24/17 09/21/17 Calcium Acetate [Phos-LO] 1,334 mg PO TID 07/24/17 09/21/17 Warfarin [Coumadin] 5 mg PO DAILY 09/21/17 09/21/17 Previous Rx's Medication Instructions Recorded Albuterol Sulfate [Albuterol 2 puff IH Q6HR #1 hfa.aer.ad 03/22/17 Inhaler] Metoprolol XL (24 HR) Succ [Toprol 100 mg PO DAILY #30 tab.er.24h 03/22/17 Xl] Aspirin 81 mg PO DAILY #30 tab.chew 06/21/17 Allergies Allergy/AdvReac Type Severity Reaction Status Date / Time bacitracin Allergy Rash Verified 07/24/17 10:16 [From Neosporin ([id number])] Neomycin Allergy Rash Verified 07/24/17 10:16 [From Neosporin (mam-ioe-mpxre)] polymyxin B Allergy Rash Verified 07/24/17 10:16 [From Neosporin (byx-rwx-eoriv)] atorvastatin AdvReac Cramping Verified 07/24/17 10:16 of the Muscles plastic Allergy Rash Uncoded 07/24/17 10:16 tape Allergy Rash Uncoded 07/24/17 10:16 Past Medical History - Past Medical History Medical history: Reports: CHF, coronary artery disease, diabetes, dialysis, hypertension, myocardial infarction, renal disease, other Surgical history: Reports: angioplasty/stent, cholecystectomy, hysterectomy, orthopedic, other, other Psychiatric history: Reports: no psych history 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: 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: 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 - Social History Smoking Status: Never smoker Smokeless Tobacco Status: No Alcohol use: Reports: none Drug use: Reports: none Physical Exam - General Limitations: no limitations General appearance: alert, in no apparent distress Course Vital Signs Temperature 97.9 F 09/21/17 06:54 Pulse Rate 141 09/21/17 06:54 Respiratory Rate 16 09/21/17 06:54 Blood Pressure 161/88 09/21/17 06:54 O2 Sat by Pulse Oximetry 99 09/21/17 06:54 Temperature 97.9 F 09/21/17 06:54 Pulse Rate 70 09/21/17 10:51 Respiratory Rate 18 09/21/17 10:51 Blood Pressure 125/67 09/21/17 10:51 O2 Sat by Pulse Oximetry 99 09/21/17 10:51 Oxygen Delivery Oxygen Delivery Nasal Cannula Medical Decision Making - MDM Narrative Medical decision making narrative: This documentation is done with the assistance of Dragon dictation. There may be inaccuracies in engine house helper or spelling and typographical errors. I examined this patient and my medical decision-making was reviewed with the Resident Physician. I agree with the documented findings, disposition and treatment plan as described except to the extent set forth below. Patient seen and evaluated this morning by Dr. Hooper and myself, I agree with his evaluation and management plan, supervising care the patient throughout stay. Patient presents today from dialysis. She was on dialysis for about 20 minutes. She dialyzes on Sunday. She had tachycardia there. No chest pain. She has been rapid heart rate today with her regular features which looks like A. fib. We will get an EKG chest x-ray laboratory work and reassess. She is in agreement with plan. She will most likely need admission. Chest X-Ray 09/21/17 07:07 IMPRESSION: Stable cardiomegaly with mild interstitial edema. Oral findings are stable from 06/20/2017. D/ / Valencia Jacobs MD / Valencia Jacobs MD Interpreting Provider: Valencia Jacobs MD 1100 hrs.: Patient is being admitted. She will be a hold in the emergency department until bed becomes available upstairs. She is in agreement with plan. Heart rate is improved. A. fib with RVR, critical care time excluding separately billable procedures is 40 minutes. - Lab Data Result diagrams: 09/21/17 07:14 09/21/17 07:14 Lab Results 09/21/17 09/21/17 09/21/17 Range/Units 07:14 07:14 07:14 WBC 7.6 (4.3-11.1) K/mcL RBC 3.59 L (3.82-4.97) M/mcL Hgb 11.5 (11.5-15.4) g/dL Hct 35.8 (35.3-44.9) % MCV 99.7 (83.0-100.0) fL MCH 32.0 (28.0-33.3) pg MCHC 32.1 (31.6-35.5) g/dL RDW 14.3 (11.5-14.5) % Plt Count 214 (140-400) K/mcL MPV 10.0 (9.4-12.4) fL Immature Gran % 2.4 (0-4) % Seg Neutrophils % 67.6 % Lymphocytes % 21.6 % Monocytes % 7.5 % Eosinophils % 0.0 % Basophils % 0.9 % Neutrophils # 5.1 (1.6-8.9) K/mcL Lymphocytes # 1.6 (0.6-4.6) K/mcL Monocytes # 0.6 (0.0-1.3) K/mcL Eosinophils # 0.0 (0.0-0.6) K/mcL Basophils # 0.1 (0.0-0.2) K/mcL PT 44.9 H* (9.4-12.1) Seconds INR 4.0 APTT > 360.0 H* (26.0-36.0) Seconds Heparin Anti-Xa, Unfract 0.36 (0.30-0.70) IU/mL Sodium (136-145) mEq/L Potassium (3.5-5.1) mEq/L Chloride (98-107) mEq/L Carbon Dioxide (23-29) mEq/L BUN (8-23) mg/dL Creatinine (0.60-1.20) mg/dL Est GFR ( Amer) (> 60) Est GFR (Non-Af Amer) (> 60) BUN/Creatinine Ratio (6-26) Glucose (70-105) mg/dL Calculated Osmolality (280-300) Calcium (8.6-10.3) mg/dL Magnesium (1.6-2.6) mg/dL Total Bilirubin (0.3-1.0) mg/dL AST (13-39) Units/L ALT (7-52) Units/L Alkaline Phosphatase (34-104) Units/L Troponin I 0.05 H* (< 0.04) ng/mL Serum Total Protein (6.4-8.9) g/dL Albumin (3.5-5.7) g/dL Globulin (2.4-3.5) g/dL Albumin/Globulin Ratio (1.1-2.2) TSH (0.340-5.600) mcIU/mL 09/21/17 Range/Units 07:14 WBC (4.3-11.1) K/mcL RBC (3.82-4.97) M/mcL Hgb (11.5-15.4) g/dL Hct (35.3-44.9) % MCV (83.0-100.0) fL MCH (28.0-33.3) pg MCHC (31.6-35.5) g/dL RDW (11.5-14.5) % Plt Count (140-400) K/mcL MPV (9.4-12.4) fL Immature Gran % (0-4) % Seg Neutrophils % % Lymphocytes % % Monocytes % % Eosinophils % % Basophils % % Neutrophils # (1.6-8.9) K/mcL Lymphocytes # (0.6-4.6) K/mcL Monocytes # (0.0-1.3) K/mcL Eosinophils # (0.0-0.6) K/mcL Basophils # (0.0-0.2) K/mcL PT (9.4-12.1) Seconds INR APTT (26.0-36.0) Seconds Heparin Anti-Xa, Unfract (0.30-0.70) IU/mL Sodium 137 (136-145) mEq/L Potassium 4.3 (3.5-5.1) mEq/L Chloride 101 (98-107) mEq/L Carbon Dioxide 22 L (23-29) mEq/L BUN 51 H (8-23) mg/dL Creatinine 6.29 H (0.60-1.20) mg/dL Est GFR ( Amer) 8 L (> 60) Est GFR (Non-Af Amer) 7 L (> 60) BUN/Creatinine Ratio 8 (6-26) Glucose 176 H (70-105) mg/dL Calculated Osmolality 302 H (280-300) Calcium 8.6 (8.6-10.3) mg/dL Magnesium 1.9 (1.6-2.6) mg/dL Total Bilirubin 0.3 (0.3-1.0) mg/dL AST 15 (13-39) Units/L ALT 18 (7-52) Units/L Alkaline Phosphatase 94 (34-104) Units/L Troponin I (< 0.04) ng/mL Serum Total Protein 7.0 (6.4-8.9) g/dL Albumin 3.6 (3.5-5.7) g/dL Globulin 3.4 (2.4-3.5) g/dL Albumin/Globulin Ratio 1.1 (1.1-2.2) TSH 0.869 (0.340-5.600) mcIU/mL
[2017-09-21 07:44] LABS: Albumin 3.6 g/dL (3.5-5.7); Albumin/Globulin Ratio 1.1 (1.1-2.2); Bilirubin,Total 0.3 mg/dL (0.3-1.0); Calcium 8.6 mg/dL (8.6-10.3); Globulin 3.4 g/dL (2.4-3.5); Magnesium 1.9 mg/dL (1.6-2.6); Potassium 4.3 mEq/L (3.5-5.1)
[2017-09-21 07:57] LABS: Thyroid Stimulating Hormone 0.869 mcIU/mL (0.340-5.600)
[2017-09-21 07:58] LABS: Prothrombin Time 44.9 Seconds (9.4-12.1)
[2017-09-21 07:59] LABS: Activated Partial Thrombo Time > 360.0 Seconds (26.0-36.0)
[2017-09-21 08:20] LABS: Heparin anti-factor XA UFH 0.36 IU/mL (0.30-0.70)
[2017-09-21] MEDS ORDERED: Magnesium Sulfate 1 GM in D5% in Water 100 ML IVPB ONE (09:09)
--- NOTE | 2017-09-21 09:16 | Internal Med History&Physical ---
Date of Encounter: 09/21/17 Time of Encounter: 09:14 Assessment and Plan (1) SVT (supraventricular tachycardia) Current visit: Yes Status: Acute Card diverted after Cardizem was given. Patient currently on Cardizem drip she has restored normal sinus rhythm. Will discontinue Cardizem drip. Magnesium is 1.9 will replace with 1 g of Mag. K 4.3. Repeat echo. Last echo 6 month ag. She has an aortic sclerosis murmur (no present on last echo) (2) Paroxysmal A-fib Current visit: Yes Status: Acute History of proximal afib. INR is 4. Check INR in the morning hold Coumadin today. (3) ESRD (end stage renal disease) Current visit: Yes Status: Acute On hemodialysis Sunday. Patient that was only 15 minutes today. Will dialyze in hospital. (4) Diabetes Current visit: No Status: Chronic Continue home regimen. 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 Qualifiers: Qualified Code(s): I10 - Essential (primary) hypertension Internal Medicine - H&P: HPI Chief complaint: palpitations History of present illness: Ms. Madden is a 67 year old female with history of end-stage renal disease on hemodialysis Sunday, paroxysmal atrial fibrillation on anticoagulation, coronary artery disease status post PCI presents to the emergency room today with the main complaint of palpitations. 15 minutes through dialysis patients started experiencing palpitations which she describes as rapid, sudden onset and offsets. This was associated with shortness of breath sweating but no chest pain. On arrival to the emergency room she was found to be in supraventricular tachycardia. She was given Cardizem with anabaptism of sinus rhythm. She denies any recent illnesses except 2 weeks ago she had viral upper respiratory symptoms which had resolved. No fever chills. No chest pain. No otherwise complains. Past Med Surg Social Fam HX - Past Medical History Medical history: CHF, coronary artery disease, diabetes, dialysis, hypertension , myocardial infarction, renal disease, other Psychiatric history: no psych history - Past Surgical History Surgical History: angioplasty/stent, cholecystectomy, hysterectomy, orthopedic, other, other - Social History Smoking Status: Never smoker Smokeless Tobacco Status: No Alcohol use: none Drug use: none - Family History Father Family Member Ethnicity: Non- Living Status: Hx Family Cardiac Disorders: Yes ([place]) Mother Family Member Ethnicity: Non- Living Status: Hx Family Cardiac Disorders: Yes ([place]) Hx Family Respiratory Disorders: No Hx Family Cancer: No Hx Family GI Disorders: No Hx Family Endocrine Disorder: Yes (DM) Hx Family Neuromuscular Disorders: No Hx Family Neurologic Disorders: No Hx Family HEENT Disorders: No Hx Family Autoimmune Disorders: No Brother Family Member Ethnicity: Non- Living Status: Still Living Hx Family Cardiac Disorders: Yes (HD) Hx Family Respiratory Disorders: No (COPD) Hx Family Cancer: No Hx Family GI Disorders: No Hx Family Endocrine Disorder: Yes (DM) Hx Family Neuromuscular Disorders: No Hx Family Neurologic Disorders: No Hx Family HEENT Disorders: No Hx Family Autoimmune Disorders: No Sister Family Member Ethnicity: Non- Living Status: Hx Family Cardiac Disorders: Yes (HD) Hx Family Respiratory Disorders: No Hx Family Cancer: Yes (Ovarian) Hx Family GI Disorders: No Hx Family Endocrine Disorder: Yes (Diabetes type 2-Brother) Hx Family Neuromuscular Disorders: No Hx Family Neurologic Disorders: No Hx Family HEENT Disorders: No Hx Family Autoimmune Disorders: No Internal Medicine - H&P: Meds Clopidogrel [Plavix] 75 mg PO DAILY 03/17/17 [History] Furosemide [Lasix] 40 mg PO BID 03/17/17 [History] Gabapentin [Neurontin] 100 mg PO TID 03/17/17 [History] Hydralazine HCl 50 mg PO QID PRN 03/17/17 [History] Insulin Glargine,Hum.rec.anlog [Lantus Solostar] 20 unit SQ BID 03/17/17 [ History] Insulin LISPRO [Humalog] 4 - 16 unit SQ TIDWM 03/17/17 [History] Acetaminophen [Tylenol] 650 mg PO Q6HR PRN #0 tablet 03/22/17 [Rx] Albuterol Sulfate [Albuterol Inhaler] 2 puff IH Q6HR #1 hfa.aer.ad 03/22/17 [Rx] Metoprolol XL (24 HR) Succ [Toprol Xl] 100 mg PO DAILY #30 tab.er.24h 03/22/17 [ Rx] Isosorbide MONOnitrate [Isosorbide Mononitrate ER] 120 mg PO DAILY 06/20/17 [ History] Quinine Sulfate [Qualaquin] 324 mg PO TID 06/20/17 [History] Warfarin perPT [Coumadin perPT] 7.5 mg PO SUTUTHSA 06/20/17 [History] Warfarin perPT [Coumadin perPT] 10 mg PO MOWEFR 06/20/17 [History] Aspirin 81 mg PO DAILY #30 tab.chew 06/21/17 [Rx] Allopurinol [Zyloprim 100 MG] 200 mg PO DAILY 07/24/17 [History] Calcium Acetate [Phos-LO] 1,334 mg PO TID 07/24/17 [History] 3 Allergy/AdvReac Type Severity Reaction Status Date / Time bacitracin Allergy Rash Verified 07/24/17 10:16 [From Neosporin (vum-ord-qltbw)] Neomycin Allergy Rash Verified 07/24/17 10:16 [From Neosporin (tnt-cjn-ttegp)] polymyxin B Allergy Rash Verified 07/24/17 10:16 [From Neosporin (xxu-vbm-labjk)] atorvastatin AdvReac Cramping Verified 07/24/17 10:16 of the Muscles plastic Allergy Rash Uncoded 07/24/17 10:16 tape Allergy Rash Uncoded 07/24/17 10:16 All Systems PM: A 10-system review of systems was performed and is negative for pertinent findings except as documented above in the HPI. Review of systems: 10 point review of systems is negative except for HPI - Constitutional Vitals: Temp Pulse Resp BP Pulse Ox 97.9 F 81 18 141/74 95 09/21/17 06:54 09/21/17 08:42 09/21/17 08:42 09/21/17 08:42 09/21/17 08:42 Exam: Gen.: patient is alert oriented times 3 not in distress. Cardiac: normal S1 S2, murmur of aotic sclerosis Chest: clear to auscultation. Abdomen: soft nontender nondistended. Lower extremity 1+ swelling mucous membranes: moist Internal Med - H&P Results - Labs CBC & Chem 7: 09/21/17 07:14 09/21/17 07:14 Labs: Short CBC 09/21/17 Range/Units 07:14 WBC 7.6 (4.3-11.1) K/mcL Hgb 11.5 (11.5-15.4) g/dL Hct 35.8 (35.3-44.9) % Plt Count 214 (140-400) K/mcL Neutrophils # 5.1 (1.6-8.9) K/mcL BMP 09/21/17 07:14 Sodium 137 Potassium 4.3 Chloride 101 Carbon Dioxide 22 L BUN 51 H Creatinine 6.29 H Glucose 176 H Calcium 8.6 Cardiac Enzymes 09/21/17 Range/Units 07:14 Troponin I 0.05 H* (< 0.04) ng/mL Liver Function 09/21/17 Range/Units 07:14 Total Bilirubin 0.3 (0.3-1.0) mg/dL AST 15 (13-39) Units/L ALT 18 (7-52) Units/L Alkaline Phosphatase 94 (34-104) Units/L Albumin 3.6 (3.5-5.7) g/dL - Impressions ITS Impressions Chest X-Ray 09/21/17 07:07 IMPRESSION: Stable cardiomegaly with mild interstitial edema. Oral findings are stable from 06/20/2017. D/ / Valencia Jacobs MD / Valencia Jacobs MD Interpreting Provider: Valencia Jacobs MD
[2017-09-21] MEDS ORDERED: hydrALAZINE 25 MG TABLET PO PRN (09:25)
--- NOTE | 2017-09-21 09:42 | Nephrology Consult Note ---
Date of Encounter: 09/21/17 Time of Encounter: 09:25 Assessment and Plan (1) ESRD (end stage renal disease) on dialysis Current Visit: Yes Status: Chronic Afib, RVR on Cardizem drip. Currently NSR. ESRD-Will have HD today, orders given. History of Present Illness - Reason for Consult end stage renal disease - History of Present Illness Ms. Madden is a 67 year old female with ESRD who dialyzes at [place] on MWF. Patient was at dialysis, only on treatment approximately 20 minutes when felt heart racing. She denied any chest pain. Did state she was short of breath and sweating. Other PMH-AfibCHF, coronary artery disease, diabetes, dialysis, hypertension, myocardial infarction, angioplasty/stent, cholecystectomy, hysterectomy, orthopedic. She was transferred to [place] from dialysis center and found to be Afib, RVR, started on Cardizem drip. She has since converted to NSR. CXR- Stable cardiomegaly with mild interstitial edema. At present she states she feels much better. Past Med Surg Social Fam HX - Past Medical History Medical history: CHF, coronary artery disease, diabetes, dialysis, hypertension , myocardial infarction, renal disease, other Psychiatric history: no psych history - Past Surgical History Surgical History: angioplasty/stent, cholecystectomy, hysterectomy, orthopedic, other, other - Social History Smoking Status: Never smoker Smokeless Tobacco Status: No Alcohol use: none Drug use: none - Family History Father Family Member Ethnicity: Non- Living Status: Hx Family Cardiac Disorders: Yes ([place]) Mother Family Member Ethnicity: Non- Living Status: Hx Family Cardiac Disorders: Yes (HD) Hx Family Respiratory Disorders: No Hx Family Cancer: No Hx Family GI Disorders: No Hx Family Endocrine Disorder: Yes (DM) Hx Family Neuromuscular Disorders: No Hx Family Neurologic Disorders: No Hx Family HEENT Disorders: No Hx Family Autoimmune Disorders: No Brother Family Member Ethnicity: Non- Living Status: Still Living Hx Family Cardiac Disorders: Yes (HD) Hx Family Respiratory Disorders: No (COPD) Hx Family Cancer: No Hx Family GI Disorders: No Hx Family Endocrine Disorder: Yes (DM) Hx Family Neuromuscular Disorders: No Hx Family Neurologic Disorders: No Hx Family HEENT Disorders: No Hx Family Autoimmune Disorders: No Sister Family Member Ethnicity: Non- Living Status: Hx Family Cardiac Disorders: Yes (HD) Hx Family Respiratory Disorders: No Hx Family Cancer: Yes (Ovarian) Hx Family GI Disorders: No Hx Family Endocrine Disorder: Yes (Diabetes type 2-Brother) Hx Family Neuromuscular Disorders: No Hx Family Neurologic Disorders: No Hx Family HEENT Disorders: No Hx Family Autoimmune Disorders: No Medications and Allergies Clopidogrel [Plavix] 75 mg PO DAILY 03/17/17 [History] Furosemide [Lasix] 40 mg PO BID 03/17/17 [History] Gabapentin [Neurontin] 100 mg PO TID 03/17/17 [History] Hydralazine HCl 50 mg PO BID PRN 03/17/17 [History] Insulin Glargine,Hum.rec.anlog [Lantus Solostar] 20 unit SQ BID 03/17/17 [ History] Insulin LISPRO [Humalog] 4 - 16 unit SQ TIDWM 03/17/17 [History] Albuterol Sulfate [Albuterol Inhaler] 2 puff IH Q6HR #1 hfa.aer.ad 03/22/17 [Rx] Metoprolol XL (24 HR) Succ [Toprol Xl] 100 mg PO DAILY #30 tab.er.24h 03/22/17 [ Rx] Isosorbide MONOnitrate [Isosorbide Mononitrate ER] 120 mg PO DAILY 06/20/17 [ History] Quinine Sulfate [Qualaquin] 324 mg PO TID 06/20/17 [History] Aspirin 81 mg PO DAILY #30 tab.chew 06/21/17 [Rx] Allopurinol [Zyloprim 100 MG] 200 mg PO DAILY 07/24/17 [History] Calcium Acetate [Phos-LO] 1,334 mg PO TID 07/24/17 [History] Warfarin [Coumadin] 5 mg PO DAILY 09/21/17 [History] 3 Allergy/AdvReac Type Severity Reaction Status Date / Time bacitracin Allergy Rash Verified 07/24/17 10:16 [From Neosporin (jek-rvw-[id number])] Neomycin Allergy Rash Verified 07/24/17 10:16 [From Neosporin (ltx-caw-gayww)] polymyxin B Allergy Rash Verified 07/24/17 10:16 [From Neosporin (usy-ghb-pkgdw)] atorvastatin AdvReac Cramping Verified 07/24/17 10:16 of the Muscles plastic Allergy Rash Uncoded 07/24/17 10:16 tape Allergy Rash Uncoded 07/24/17 10:16 Review of Systems All Systems: reviewed and no additional remarkable complaints except as stated Exam - Vital Signs Vital signs: Initial Vital Signs Temp Pulse Resp BP Pulse Ox 97.9 F 141 16 161/88 99 09/21/17 06:54 09/21/17 06:54 09/21/17 06:54 09/21/17 06:54 09/21/17 06:54 Vital Signs - Last 8 Hours Temp Pulse Resp BP Pulse Ox 09/21/17 08:42 81 18 141/74 95 09/21/17 06:54 97.9 F 141 16 161/88 99 Intake and Output 09/20/17 09/21/17 09/21/17 23:59 07:59 15:59 Other: Weight 99.79 kg Patient Weight 09/21/17 23:59 Weight 99.79 kg - General Appearance General appearance: well-developed, well-nourished, appears started age EENT: mucous membranes moist Neck: no JVD Respiratory: clear Cardiology: no edema, regular rate, regular rhythm - Dialysis Access Dialysis Vascular Access: Arteriovenous Fistula Gastrointestinal: normoactive bowel sounds, no tenderness Integumentary: warm and dry Neurologic: alert and oriented x3 Results - Lab Results 09/21/17 07:14 09/21/17 07:14 Most recent lab results Calcium 8.6 mg/dL (8.6-10.3) 09/21/17 07:14 Magnesium 1.9 mg/dL (1.6-2.6) 09/21/17 07:14 Consult Discharge Plan - Plan Referrals: Eleazar Calhoun MD [Primary Care Provider] -
[2017-09-21] MEDS ORDERED: Insulin LISPRO 300 UNITS/3 ML VIAL SQ SCH ×2 (11:30→21:00)
--- NOTE | 2017-09-21 12:09 | Electrocardiograph Report ---
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 : 1950 Requested By: Vik Hooper Order Number: [id number] Reading MD: Jim Scales MD Measurements Intervals [place] Rate: 141 P: NV: 0 QRS: -59 QRSD: 114 T: 106 QT: 299 QTc: 381 Interpretive Statements SUPRAVENTRICULAR TACHYCARDIA LEFT VENTRICULAR HYPERTROPHY AND ST-T CHANGE [VOLTAGE CRITERIA PLUS ST/T ABNORMALITY] INFERIOR MYOCARDIAL INFARCTION [40+ ms Q WAVE AND/OR ST/T ABNORMALITY IN II/aVF], OF INDETERMINATE AGE ANTEROSEPTAL MYOCARDIAL INFARCTION [40+ ms Q WAVE IN V1-V4], OF INDETERMINATE AGE WARNING: DATA QUALITY MAY AFFECT INTERPRETATION Electronically Signed On 09-21-2017 12:07:42 EST by Jim Scales MD
--- NOTE | 2017-09-21 12:09 | Electrocardiograph Report ---
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
[2017-09-21] MEDS ORDERED: 0.9 % Sodium Chloride 250 ML IVC PRN (12:39)
[2017-09-21] MEDS ORDERED: 0.9 % Sodium Chloride 1,000 ML PRIME SCH (12:45)
[2017-09-21 12:55] LABS: Hepatitis B Surface Antibody 3.12 mIU/mL; Hepatitis B Surface Antigen Nonreactive (Nonreactive)
[2017-09-21] MEDS ORDERED: *HR* Dextrose 50 % in Water (Syg) 50 ML SYRINGE IVP PRN (13:54)
[2017-09-21] MEDS ORDERED: Dextrose Gel 15 GM/37.5 ML TUBE PO PRN ×2 (13:54)
[2017-09-21] MEDS ORDERED: D5% in Water 1,000 ML IVC PRN (13:54)
[2017-09-21] MEDS: Gabapentin 100 MG CAPSULE PO SCH ×2 (15:28→20:53)
[2017-09-21] MEDS ORDERED: 0.9 % Sodium Chloride 2,000 ML ONE (16:02)
[2017-09-21] MEDS: Insulin LISPRO 300 UNITS/3 ML VIAL SQ SCH (17:39)
[2017-09-21] MEDS: Calcium Acetate 667 MG CAPSULE PO SCH (17:39)
[2017-09-21] MEDS: Furosemide 40 MG TABLET PO SCH (20:53)
[2017-09-21] MEDS: Insulin DETEMIR 100 UNIT/ML X5UNITS SQ SCH (21:20)
[2017-09-21] MEDS: QUININE SULFATE 324 MG PO SCH (23:02)
[2017-09-22 03:12] LABS: Basophils # 0.1 K/mcL (0.0-0.2); Basophils % 0.8 %; Hematocrit 36.5 % (35.3-44.9); Hemoglobin 11.7 g/dL (11.5-15.4); Immature Granulocytes % 1.8 % (0-4); Lymphocytes # 1.8 K/mcL (0.6-4.6); Lymphocytes % 18.1 %; Mean Corpuscular HGB Conc 32.1 g/dL (31.6-35.5); Mean Corpuscular Hemoglobin 32.5 pg (28.0-33.3); Mean Corpuscular Volume 101.4 fL (83.0-100.0); Mean Platelet Volume 9.8 fL (9.4-12.4); Monocytes # 0.7 K/mcL (0.0-1.3); Monocytes % 7.6 %; Neutrophils # 6.9 K/mcL (1.6-8.9); Nucleated Red Blood Cells 0.2 /100 WBC (0); Platelet Count 178 K/mcL (140-400); Red Cell Distribution Width 14.3 % (11.5-14.5); Segmented Neutrophils % 71.7 %
[2017-09-22 03:34] LABS: INR 2.6; Prothrombin Time 28.6 Seconds (9.4-12.1)
[2017-09-22 04:00] LABS: Hemoglobin A1C 8.1 %
[2017-09-22 06:37] LABS: Calcium 8.9 mg/dL (8.6-10.3); Potassium 4.9 mEq/L (3.5-5.1)
--- NOTE | 2017-09-22 08:19 | Nephrology Progress Note ---
Date of Encounter: 09/22/17 Time of Encounter: 08:00 - Assessment and Plan (1) ESRD (end stage renal disease) on dialysis Current Visit: Yes Status: Chronic Controlled AR 80-90. No HD today, keeping MWF schedule. If discharged will dialyze Sunday in [place] Subjective Interval history: Sitting up in bed, denies palpitations or chest pain. No new complaints. States wants to go home. Objective - Vital Signs Vital signs: Vital Signs Temp Pulse Resp BP Pulse Ox 09/22/17 07:36 99.0 F 99 16 129/81 99 09/22/17 05:04 98.4 F 87 16 171/82 96 09/22/17 01:15 98.6 F 91 16 145/83 95 09/21/17 22:37 17 98 09/21/17 20:40 97.9 F 18 145/71 09/21/17 20:20 119/65 09/21/17 20:05 101/54 09/21/17 19:50 102/64 09/21/17 19:35 105/56 09/21/17 19:20 124/57 09/21/17 19:05 111/53 09/21/17 18:50 109/56 09/21/17 18:35 114/58 09/21/17 18:20 103/58 09/21/17 18:05 133/64 09/21/17 17:50 138/76 09/21/17 17:35 161/76 09/21/17 17:20 97.6 F 18 158/77 09/21/17 15:54 97.7 F 82 18 208/63 99 09/21/17 15:05 20 98 09/21/17 14:18 98.0 F 73 17 188/55 99 09/21/17 13:58 18 155/72 Intake and Output 09/21/17 09/22/17 09/22/17 23:59 07:59 15:59 Intake Total 600 / 600 Output Total 3323 / 3323 Balance -2723 / -2723 Intake: Oral 0 / 0 Intake, Rinseback and Flushes 600 / 600 Output: Urine 0 / 0 Total Dialysis (HD) Output 3323 / 3323 Other: # Voids 1 Weight 95.6 kg Blood Glucose* 161 Hemodialysis Net Fluid Removed 2723 (mL) Patient Weight 09/22/17 23:59 Weight 95.6 kg - General Appearance General appearance: Present: well-developed, well-nourished, appears started age EENT: Present: mucous membranes moist Neck: Present: no JVD Respiratory: Present: clear Cardiology: Present: no edema, regular rate, regular rhythm Gastrointestinal: Present: normoactive bowel sounds, no tenderness Integumentary: Present: warm and dry Neurologic: Present: alert and oriented x3 - Lab 09/22/17 03:01 09/22/17 05:45 Most recent lab results Calcium 8.9 mg/dL (8.6-10.3) 09/22/17 05:45 Magnesium 2.0 mg/dL (1.6-2.6) 09/22/17 05:45 Consult Discharge Plan - Plan Referrals: Eleazar Calhoun MD [Primary Care Provider] -
[2017-09-22] MEDS ORDERED: Aspirin 81 MG TAB.CHEW PO SCH (09:00)
[2017-09-22] MEDS ORDERED: Isosorbide MONOnitrate (24 HR) 60 MG TAB.ER.24H PO SCH (09:00)
[2017-09-22] MEDS ORDERED: Metoprolol XL (24 HR) Succ 50 MG TAB.ER.24H PO SCH (09:00)
--- NOTE | 2017-09-22 09:07 | Cardiology Consult Note ---
Date of Encounter: 09/22/17 Time of Encounter: 09:20 Assessment and Plan (1) Paroxysmal A-fib Current Visit: Yes Status: Acute Continue rate control and coumadin INR 2-3. Discussed antiarrhythmic therapy and potential side effects/toxicities of amiodarone. She wishes to proceed with rhythm control with amio (LVH 1.5cm). Wlll need INR check next week and will be followed in clinic. (2) ESRD (end stage renal disease) Current Visit: Yes Status: Acute Continue dialysis (3) Troponin level elevated Current Visit: No Status: Acute 2/2 PAF RVR. No angina. Discussion w patient/family: The assessment and plan as outlined above was discussed with the patient and/or family members who expressed understanding and agreement. All questions were answered. Thank you for involving us in the care of your patient. Please call with any questions. History of Present Illness Consult date: 09/22/17 Consult reason: atrial fibrillation Chief complaint: palpitations, shakiness History of present illness: Ms. Madden is a 67 year old female with CAD sp PCI, Paroxysmal atrial fibrillation, ESRD. Patient transferred from dialysis with tachycardia found to be in AF RVR and spontaneously converted in ED. During her episode she noted severe palpitations associated with tremors and felt very poorly. This is similar to her previous AF paroxysm. She denies any symptoms currently including chest pain, dyspnea or palpitations. 03/19/17 which showed The LMCA is angiographically free of disease. 30% stenosis in the Proximal LAD, patent proximal and mid stent. 40% stenosis in the Mid LAD. 20% stenosis in the Mid Circumflex. Patent mid stent. There is a 30% stenosis in the Proximal RCA. The left ventricle is normal and mildly abnormal contractility EF 40-45% There is mild three vessel coronary artery disease. Stent placed from a prior procedure in the Mid LAD is patent.Stent placed from a prior procedure in the Proximal RCA is is patent. The last Echo was done on 03/18/17 Technically sub-optimal due to poor echocardiographic windows.LVEF 35-40%. Normal LV chamber size and function. Mild concentric left ventricular hypertrophy. Moderate global left ventricular systolic dysfunction. Atypical septal motion consistent with bundle branch block. Mildly dilated right ventricle. Mild right ventricular hypokinesis. Indeterminate diastolic function. Mild-moderate mitral regurgitation. Mild tricuspid regurgitation. Moderate pulmonary hypertension. Estimated RVSP is 49 mmHg. Past Med Surg Social Fam HX - Past Medical History Medical history: CHF, coronary artery disease, diabetes, dialysis, hypertension , myocardial infarction, renal disease, other Psychiatric history: no psych history - Past Surgical History Surgical History: angioplasty/stent, cholecystectomy, hysterectomy, orthopedic, other, other - Social History Smoking Status: Never smoker Smokeless Tobacco Status: No Alcohol use: none Drug use: none - Family History Father Family Member Ethnicity: Non- Living Status: Hx Family Cardiac Disorders: Yes ([place]) Mother Family Member Ethnicity: Non- Living Status: Hx Family Cardiac Disorders: Yes (HD) Hx Family Respiratory Disorders: No Hx Family Cancer: No Hx Family GI Disorders: No Hx Family Endocrine Disorder: Yes (DM) Hx Family Neuromuscular Disorders: No Hx Family Neurologic Disorders: No Hx Family HEENT Disorders: No Hx Family Autoimmune Disorders: No Brother Family Member Ethnicity: Non- Living Status: Still Living Hx Family Cardiac Disorders: Yes (HD) Hx Family Respiratory Disorders: No (COPD) Hx Family Cancer: No Hx Family GI Disorders: No Hx Family Endocrine Disorder: Yes (DM) Hx Family Neuromuscular Disorders: No Hx Family Neurologic Disorders: No Hx Family HEENT Disorders: No Hx Family Autoimmune Disorders: No Sister Family Member Ethnicity: Non- Living Status: Hx Family Cardiac Disorders: Yes (HD) Hx Family Respiratory Disorders: No Hx Family Cancer: Yes (Ovarian) Hx Family GI Disorders: No Hx Family Endocrine Disorder: Yes (Diabetes type 2-Brother) Hx Family Neuromuscular Disorders: No Hx Family Neurologic Disorders: No Hx Family HEENT Disorders: No Hx Family Autoimmune Disorders: No Medications and Allergies Clopidogrel [Plavix] 75 mg PO DAILY 03/17/17 [History] Furosemide [Lasix] 40 mg PO BID 03/17/17 [History] Gabapentin [Neurontin] 100 mg PO TID 03/17/17 [History] Hydralazine HCl 50 mg PO BID PRN 03/17/17 [History] Insulin Glargine,Hum.rec.anlog [Lantus Solostar] 20 unit SQ BID 03/17/17 [ History] Insulin LISPRO [Humalog] 4 - 16 unit SQ TIDWM 03/17/17 [History] Albuterol Sulfate [Albuterol Inhaler] 2 puff IH Q6HR #1 hfa.aer.ad 03/22/17 [Rx] Metoprolol XL (24 HR) Succ [Toprol Xl] 100 mg PO DAILY #30 tab.er.24h 03/22/17 [ Rx] Isosorbide MONOnitrate [Isosorbide Mononitrate ER] 120 mg PO DAILY 06/20/17 [ History] Quinine Sulfate [Qualaquin] 324 mg PO TID 06/20/17 [History] Aspirin 81 mg PO DAILY #30 tab.chew 06/21/17 [Rx] Allopurinol [Zyloprim 100 MG] 200 mg PO DAILY 07/24/17 [History] Calcium Acetate [Phos-LO] 1,334 mg PO TID 07/24/17 [History] Warfarin [Coumadin] 5 mg PO DAILY 09/21/17 [History] 3 Allergy/AdvReac Type Severity Reaction Status Date / Time bacitracin Allergy Rash Verified 07/24/17 10:16 [From Neosporin ([id number])] Neomycin Allergy Rash Verified 07/24/17 10:16 [From Neosporin ([id number])] polymyxin B Allergy Rash Verified 07/24/17 10:16 [From Neosporin ([id number])] atorvastatin AdvReac Cramping Verified 07/24/17 10:16 of the Muscles plastic Allergy Rash Uncoded 07/24/17 10:16 tape Allergy Rash Uncoded 07/24/17 10:16 All Systems Review: A 10-system review of systems was performed and is negative for pertinent findings except as documented above in the HPI. - Constitutional Constitutional: no chills, no fever(s) - EENT Eyes: no blurred vision, no loss of vision Nose, mouth and throat: no bleeding gums, no epistaxis - Cardiovascular Cardiovascular: no chest pain at rest, no chest pain with exertion - Respiratory Respiratory: no hemoptysis, no wheezing - Gastrointestinal Gastrointestinal: no hematemesis, no hematochezia - Genitourinary Genitourinary: no hematuria, no nocturia - Musculoskeletal Musculoskeletal: no abnormal gait, no myalgias - Integumentary Integumentary: no rash, no unusual bruising - Neurological Neurological: no memory loss, no syncope - Psychiatric Psychiatric: no hallucinations, no panic attacks - Hematological/Lymphatic Hematologic/Lymphatic: no easy bleeding, no easy bruising Physical Examination Vital Signs, Last 4 Hours Temp Pulse Resp BP Pulse Ox 09/22/17 07:36 99.0 F 99 16 129/81 99 General: Conversant HEENT: Atraumatic Neck: No JVD Cardiac: Reg Rate and Rhythm Lungs: Normal Breath Sounds Neuro: Alert and responsive Abdomen: Soft Skin: No rashes noted on visualized skin Musculoskeletal: No Chest Wall Tenderness Extremities: No Edema Results 09/22/17 03:01 09/22/17 05:45 Lab Results 09/21/17 09/21/17 09/22/17 14:05 20:56 03:01 WBC 9.7 Hgb 11.7 Hct 36.5 Plt Count 178 INR Sodium Potassium Chloride Carbon Dioxide BUN Creatinine Glucose Calcium Magnesium Troponin I 0.04 H* 0.04 H* 09/22/17 09/22/17 03:01 05:45 WBC Hgb Hct Plt Count INR 2.6 Sodium 140 Potassium 4.9 Chloride 101 Carbon Dioxide 28 BUN 32 H Creatinine 4.98 H Glucose 133 H Calcium 8.9 Magnesium 2.0 Troponin I - Imaging and Cardiology Echo: image reviewed, other (EFnml LVH 1.5cm Moderate ) - EKG Interpretation EKG results cardiology: personally reviewed, no diagnostic ischemia Consult Discharge Plan - Plan Referrals: Eleazar Calhoun MD [Primary Care Provider] -
[2017-09-22] MEDS: Calcium Acetate 667 MG CAPSULE PO SCH ×2 (11:07→12:30)
[2017-09-22 12:04] VITALS: BP 155/84
[2017-09-22] MEDS: Insulin LISPRO 300 UNITS/3 ML VIAL SQ SCH ×2 (12:07→12:30)
[2017-09-22] MEDS: Gabapentin 100 MG CAPSULE PO SCH (12:29)
[2017-09-22] MEDS: Furosemide 40 MG TABLET PO SCH (12:29)
[2017-09-22] MEDS: Insulin DETEMIR 100 UNIT/ML X5UNITS SQ SCH (12:30)
[2017-09-22] MEDS: QUININE SULFATE 324 MG PO SCH (12:30)
--- NOTE | 2017-09-22 13:09 | Discharge Summary ---
Date of Encounter: 09/29/17 Time of Encounter: 13:07 - Discharge Diagnosis (1) Atrial fibrillation with rapid ventricular response Priority: Primary Status: Acute (2) CAD (coronary artery disease) Priority: Secondary Status: Chronic Qualifiers: Coronary Disease-Associated Artery/Lesion type: [place] artery Res[place] vs. transplanted heart: [place] heart Associated angina: with unstable angina Qualified Code(s): I25.110 - Atherosclerotic heart disease of [place] coronary artery with unstable angina pectoris (3) SVT (supraventricular tachycardia) Priority: Primary Status: Acute (4) ESRD (end stage renal disease) Priority: Secondary Status: Acute - Discharge Medications Prescriptions: Amiodarone [Cordarone] 200 mg PO DAILY #30 tablet Home Medications: Clopidogrel [Plavix] 75 mg PO DAILY 03/17/17 [History] Furosemide [Lasix] 40 mg PO BID 03/17/17 [History] Gabapentin [Neurontin] 100 mg PO TID 03/17/17 [History] Hydralazine HCl 50 mg PO BID PRN 03/17/17 [History] Insulin Glargine,Hum.rec.anlog [Lantus Solostar] 20 unit SQ BID 03/17/17 [ History] Insulin LISPRO [Humalog] 4 - 16 unit SQ TIDWM 03/17/17 [History] Albuterol Sulfate [Albuterol Inhaler] 2 puff IH Q6HR #1 hfa.aer.ad 03/22/17 [Rx] Metoprolol XL (24 HR) Succ [Toprol Xl] 100 mg PO DAILY #30 tab.er.24h 03/22/17 [ Rx] Isosorbide MONOnitrate [Isosorbide Mononitrate ER] 120 mg PO DAILY 06/20/17 [ History] Quinine Sulfate [Qualaquin] 324 mg PO TID 06/20/17 [History] Aspirin 81 mg PO DAILY #30 tab.chew 06/21/17 [Rx] Allopurinol [Zyloprim 100 MG] 200 mg PO DAILY 07/24/17 [History] Calcium Acetate [Phos-LO] 1,334 mg PO TID 07/24/17 [History] Warfarin [Coumadin] 5 mg PO DAILY 09/21/17 [History] Amiodarone [Cordarone] 200 mg PO DAILY #30 tablet 09/22/17 [Rx] Allergies/Adverse Reactions: 3 Allergy/AdvReac Type Severity Reaction Status Date / Time bacitracin Allergy Rash Verified 07/24/17 10:16 [From Neosporin ([id number])] Neomycin Allergy Rash Verified 07/24/17 10:16 [From Neosporin ([id number])] polymyxin B Allergy Rash Verified 07/24/17 10:16 [From Neosporin ([id number])] atorvastatin AdvReac Cramping Verified 07/24/17 10:16 of the Muscles plastic Allergy Rash Uncoded 07/24/17 10:16 tape Allergy Rash Uncoded 07/24/17 10:16 Date of admission: 09/21/17 13:19 Primary care physician: Eleazar Calhoun MD Discharging clinician: Doni Lino - Patient Status Disposition: Home, Self-Care Condition: Fair Functional capacity at discharge: independent ambulation Overall status at discharge: patient is progressing back to baseline - Discharge Instructions Follow Up With: Eleazar Calhoun MD [Primary Care Provider] - - Diet and Activity Activity: increase activity as tolerated Diet: diabetic diet Interval History: Ms. Madden is a 67 year old female with history of end-stage renal disease on hemodialysis Sunday, paroxysmal atrial fibrillation on anticoagulation, coronary artery disease status post PCI presents to the emergency room today with the main complaint of palpitations. 15 minutes through dialysis patients started experiencing palpitations which she describes as rapid, sudden onset and offsets. This was associated with shortness of breath sweating but no chest pain. On arrival to the emergency room she was found to be in supraventricular tachycardia. She was given Cardizem with jewish of sinus rhythm. She denies any recent illnesses except 2 weeks ago she had viral upper respiratory symptoms which had resolved. No fever chills. No chest pain. No otherwise complains. Hospital course: Ms. Madden is a 67 year old female Patient was hospitalized. Patient was started on Cardizem drip. Patient was turned back to normal sinus rhythm. Patient was evaluated by nephrology. Patient was started on hemodialysis. Patient was tolerating hemodialysis well. Noted that patient was in SVT. Cardiology called for consultation. Cardiology recommended amiodarone 200 mg once a day. Plan: Patient is keen to go home. Prescription given to the patient amiodarone 200 mg once a day ask patient to follow up with cardiology in next 1-2 weeks. Informed patient to check the INR as outpatient. - Time Spent with Patient Total time spent providing and/or coordinating discharge services: - Constitutional Vitals: Temp Pulse Resp BP Pulse Ox 98.1 F 91 16 155/84 92 09/22/17 12:00 09/22/17 12:00 09/22/17 12:00 09/22/17 12:00 09/22/17 12:00 General appearance: Present: A&O X 3, pleasant, no acute distress - Head Head exam: Present: atraumatic, normocephalic - Eye Eye exam: Present: PERRL, conjuntiva pink, sclera anicteric Pupils: Present: PERRL - Neck Neck exam general surgery: Present: supple, trachea midline. Absent: lymphadenopathy - Respiratory Respiratory exam: Present: CTAB. Absent: accessory muscle use, rales, rhonchi, wheezes - Cardiovascular Cardiovascular exam: Present: RRR, +S1, +S2. Absent: diastolic murmur, gallop, rubs, systolic murmur - GI/Abdominal GI/Abdominal exam: Present: normal bowel sounds, soft, no peritoneal signs. Absent: distended, tenderness - Extremities Exam Extremities exam: Present: warm, radial pulses palpable and symmetrical. Absent : calf tenderness, cyanotic, pedal edema - Neurological Exam Neurological exam: Present: CN II-XII intact, oriented X3, no focal deficits. Absent: pronater drift, facial droop, speech deficit - Skin Skin exam: Present: dry, intact
[2017-09-23] MEDS ORDERED: *HR* Amiodarone 200 MG TABLET PO SCH (09:00)
== END 2017-09-22 15:15 | disposition home or self-care (01) ==
LOC: EMEROO 06:51 → 2ANU 06:51
PROVIDERS: ADMIT Hospitalist; ATTEND Internal Medicine

== ENCOUNTER 2017-10-26 20:13 | Inpatient (IN) ==
[2017-10-26 20:55] LABS: Basophils % 0.8 %; Eosinophils % 0.2 %; Hematocrit 32.1 % (35.3-44.9); Hemoglobin 10.4 g/dL (11.5-15.4); Immature Granulocytes % 1.1 % (0-4); Lymphocytes # 1.4 K/mcL (0.6-4.6); Lymphocytes % 25.8 %; Mean Corpuscular HGB Conc 32.4 g/dL (31.6-35.5); Mean Corpuscular Hemoglobin 32.2 pg (28.0-33.3); Mean Corpuscular Volume 99.4 fL (83.0-100.0); Mean Platelet Volume 9.5 fL (9.4-12.4); Monocytes # 0.4 K/mcL (0.0-1.3); Monocytes % 7.4 %; Neutrophils # 3.4 K/mcL (1.6-8.9); Platelet Count 186 K/mcL (140-400); Red Blood Count 3.23 M/mcL (3.82-4.97); Red Cell Distribution Width 14.2 % (11.5-14.5); Segmented Neutrophils % 64.7 %
[2017-10-26 21:02] LABS: Calcium 8.1 mg/dL (8.6-10.3); Potassium 4.6 mEq/L (3.5-5.1)
[2017-10-26] MEDS ORDERED: *HR* Labetalol 20 MG/4 ML SYRINGE IVP ONE (21:18)
[2017-10-26] MEDS ORDERED: *HR* Labetalol 100 MG/20 ML MDV IVP ONE (21:45)
[2017-10-26 21:59] LABS: VBG HCO3 23 mEq/L (21-27); VBG PCO2 50 mmHg (41-51); VBG PH 7.28 pH Units (7.32-7.42); VBG PO2 44 mmHg (25-50)
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
[2017-10-27] MEDS ORDERED: *HR* Promethazine 25 MG/ML VIAL IVP PRN (00:43)
[2017-10-27] MEDS ORDERED: *HR* HYDROcodone/Acet 5/325 mg TABLET PO PRN (00:43)
[2017-10-27] MEDS ORDERED: Ondansetron 4 MG/2 ML VIAL IVP PRN (00:43)
[2017-10-27] MEDS ORDERED: Acetaminophen 325 MG TABLET PO PRN (00:43)
[2017-10-27] MEDS ORDERED: Naloxone 0.4 MG/ML INJ IVP PRN (00:43)
[2017-10-27] MEDS ORDERED: D5% in Water 1,000 ML IVC PRN (00:53)
[2017-10-27] MEDS ORDERED: *HR* Dextrose 50 % in Water (Syg) 50 ML SYRINGE IVP PRN (00:53)
[2017-10-27] MEDS ORDERED: Dextrose Gel 15 GM/37.5 ML TUBE PO PRN ×2 (00:53)
[2017-10-27] MEDS: Isosorbide MONOnitrate (24 HR) 60 MG TAB.ER.24H PO SCH ×2 (01:14→14:42)
[2017-10-27] MEDS: Metoprolol XL (24 HR) Succ 50 MG TAB.ER.24H PO SCH ×2 (01:14→14:46)
[2017-10-27] MEDS: Insulin LISPRO 300 UNITS/3 ML VIAL SQ SCH ×5 (01:15→21:38)
[2017-10-27] MEDS: Furosemide 40 MG/4 ML VIAL IVP SCH ×3 (01:24→18:08)
--- NOTE | 2017-10-27 02:58 | Internal Med History&Physical ---
Date of Encounter: 10/26/17 Time of Encounter: 23:00 Assessment and Plan (1) Volume overload Current visit: Yes Status: Acute Will admit the pt into Tele Her volume overload mostly due to missing HD x 2 Pt does not look like in severe distress.. may not need emergency HD started her on IV Lasix 40mg BID Nephro consulted cont close monitoring Qualifiers: Qualified Code(s): E87.70 - Fluid overload, unspecified (2) Diastolic CHF, acute on chronic Current visit: Yes Status: Acute reviewed 2 D Echo from last month persevered LVEF..Indeterminate diastolic function on IV Lasix resumed other home med BB, ACEI, Imdur (3) Troponin level elevated Current visit: No Status: Acute (4) ESRD (end stage renal disease) on dialysis Current visit: No Status: Chronic Nephro consulted (5) CAD in [place] artery Current visit: No Status: Acute resumed all home meds ASA, Plavix, BB, ACEI, and Imdur (6) Hypertensive urgency Current visit: No Status: Acute BP was in 200's initially in the ER Will give her home meds first since she did not take them today will give hydralazine IV PRN too (7) Paroxysmal A-fib Current visit: No Status: Acute (8) COPD (chronic obstructive pulmonary disease) Current visit: No Status: Chronic on Duoneb + O2 no need of steroids Qualifiers: COPD type: unspecified COPD Qualified Code(s): J44.9 - Chronic obstructive pulmonary disease, unspecified (9) Diabetes Current visit: No Status: Chronic on ISS + Levemir Qualifiers: Diabetes mellitus type: type 2 Chronic kidney disease stage: on chronic dialysis Qualified Code(s): E11.22 - Type 2 diabetes mellitus with diabetic chronic kidney disease; N18.6 - End stage renal disease; N18.6 - End stage renal disease; N18.6 - End stage renal disease; N18.6 - End stage renal disease ; Z79.4 - intermediate designer (current) use of insulin; Z79.4 - intermediate designer (current) use of insulin; Z79.4 - senior living (current) use of insulin; Z79.4 - senior living ( current) use of insulin; Z99.2 - Dependence on renal dialysis; Z99.2 - Dependence on renal dialysis; Z99.2 - Dependence on renal dialysis; Z99.2 - Dependence on renal dialysis Internal Medicine - H&P: HPI Chief complaint: Shortness of breath Admitted From: Emergency Dept Plans for Post Hospital Care: Home History of present illness: Ms. Madden is a 67 year old female with CAD s/p PCI, Diastolic CHF, Paroxysmal atrial fibrillation on Coumadin for anticoag, and ESRD on HD M/W/F pt presented to ER with worsening SOB and WALSH. Apparently pt missed her Wed HD, and she went for dialysis today, where she happened to have tachycarida so dialysis center staff requested her to go to ER for further eval. But pt did not come in to ER right away, she decided to drive to [place] to meet her family and finally tonight she came to ER with WALSH. She denied any CP. b/l LE swelling +. No cold / cough. no sick contacts Past Med Surg Social Fam HX - Past Medical History Medical history: atrial fibrillation, CHF, coronary artery disease, diabetes, dialysis, hypertension, myocardial infarction, renal disease Psychiatric history: anxiety - Past Surgical History Surgical History: angioplasty/stent, cholecystectomy, hysterectomy, other - Social History Smoking Status: Never smoker Smokeless Tobacco Status: No Alcohol use: none Drug use: none - Family History Father Family Member Ethnicity: Non- Living Status: Hx Family Cardiac Disorders: Yes ([place]) Mother Family Member Ethnicity: Non- Living Status: Hx Family Cardiac Disorders: Yes ([place]) Hx Family Respiratory Disorders: No Hx Family Cancer: No Hx Family GI Disorders: No Hx Family Endocrine Disorder: Yes (DM) Hx Family Neuromuscular Disorders: No Hx Family Neurologic Disorders: No Hx Family HEENT Disorders: No Hx Family Autoimmune Disorders: No Brother Family Member Ethnicity: Non- Living Status: Still Living Hx Family Cardiac Disorders: Yes Hx Family Respiratory Disorders: Yes (sleep apnea) Hx Family Cancer: No Hx Family GI Disorders: No Hx Family Endocrine Disorder: Yes (DM) Hx Family Neuromuscular Disorders: No Hx Family Neurologic Disorders: No Hx Family HEENT Disorders: No Hx Family Autoimmune Disorders: No Sister Family Member Ethnicity: Non- Living Status: Hx Family Cardiac Disorders: Yes ([place]) Hx Family Respiratory Disorders: No Hx Family Cancer: Yes ([place]) Hx Family GI Disorders: No Hx Family Endocrine Disorder: Yes (DM) Hx Family Neuromuscular Disorders: No Hx Family Neurologic Disorders: No Hx Family HEENT Disorders: No Hx Family Autoimmune Disorders: No Internal Medicine - H&P: Meds Clopidogrel [Plavix] 75 mg PO DAILY 03/17/17 [History] Furosemide [Lasix] 40 mg PO BID 03/17/17 [History] Gabapentin [Neurontin] 100 mg PO TID 03/17/17 [History] Hydralazine HCl 50 mg PO BID PRN 03/17/17 [History] Insulin Glargine,Hum.rec.anlog [Lantus Solostar] 18 - 20 unit SQ BID 03/17/17 [ History] Insulin LISPRO [Humalog] 4 - 16 unit SQ TIDWM 03/17/17 [History] Metoprolol XL (24 HR) Succ [Toprol Xl] 100 mg PO DAILY #30 tab.er.24h 03/22/17 [ Rx] Isosorbide MONOnitrate [Isosorbide Mononitrate ER] 120 mg PO DAILY 06/20/17 [ History] Quinine Sulfate [Qualaquin] 324 mg PO TID 06/20/17 [History] Aspirin 81 mg PO DAILY #30 tab.chew 06/21/17 [Rx] Allopurinol [Zyloprim 100 MG] 200 mg PO DAILY 07/24/17 [History] Calcium Acetate [Phos-LO] 1,334 mg PO TIDWM 07/24/17 [History] Amiodarone [Cordarone] 200 mg PO DAILY #30 tablet 09/22/17 [Rx] Albuterol Sulfate [Albuterol Inhaler] 2 puff IH Q6HR PRN 10/26/17 [History] Citalopram Hydrobromide [Citalopram HBr] 10 mg PO DAILY 10/26/17 [History] Warfarin [Coumadin] 7.5 mg PO 1800 10/26/17 [History] 3 Allergy/AdvReac Type Severity Reaction Status Date / Time bacitracin Allergy Rash Verified 07/24/17 10:16 [From Neosporin ([id number])] Neomycin Allergy Rash Verified 07/24/17 10:16 [From Neosporin ([id number])] polymyxin B Allergy Rash Verified 07/24/17 10:16 [From Neosporin ([id number])] atorvastatin AdvReac Cramping Verified 07/24/17 10:16 of the Muscles plastic Allergy Rash Uncoded 07/24/17 10:16 tape Allergy Rash Uncoded 07/24/17 10:16 All Systems PM: A 10-system review of systems was performed and is negative for pertinent findings except as documented above in the HPI. Review of systems: All the systems are reviewed everything is benign except the systems and symptoms I mentioned in the history of present illness - Constitutional Vitals: Temp Pulse Resp BP Pulse Ox 97.7 F 76 18 164/78 90 10/27/17 00:08 10/27/17 02:11 10/27/17 00:08 10/27/17 02:11 10/27/17 00:35 General appearance: Present: mild distress (due to SOB), A&O X 3, answers questions appropriately - Head Head exam: Present: atraumatic, normocephalic - Neck Neck exam general surgery: Present: supple - Respiratory Respiratory exam: Present: decreased breath sounds, rales, respiratory distress (mild). Absent: rhonchi, wheezes - Cardiovascular Cardiovascular exam: Present: RRR, +S1, +S2 - GI/Abdominal GI/Abdominal exam: Present: normal bowel sounds, soft. Absent: rebound, rigid, tenderness - Extremities Exam Extremities exam: Present: pedal edema. Absent: calf tenderness, tenderness - Back Exam Back exam: Absent: CVA tenderness (L), CVA tenderness (R) - Neurological Exam Neurological exam: Present: alert, oriented X3 - Psychiatric Psychiatric exam: Present: normal affect, normal mood - Skin Skin exam: Absent: rash Internal Med - H&P Results - Labs CBC & Chem 7: 10/26/17 20:44 10/26/17 20:44
[2017-10-27] MEDS ORDERED: *HR* Enoxaparin 30 MG/0.3 ML SYRINGE SQ SCH (06:00)
[2017-10-27 06:35] LABS: INR 1.8; Prothrombin Time 19.3 Seconds (9.4-12.1)
[2017-10-27 06:36] LABS: Basophils # 0.1 K/mcL (0.0-0.2); Basophils % 0.7 %; Eosinophils % 0.1 %; Hematocrit 30.7 % (35.3-44.9); Hemoglobin 9.7 g/dL (11.5-15.4); Immature Granulocytes % 0.7 % (0-4); Lymphocytes % 14.2 %; Mean Corpuscular HGB Conc 31.6 g/dL (31.6-35.5); Mean Corpuscular Hemoglobin 31.3 pg (28.0-33.3); Mean Platelet Volume 9.9 fL (9.4-12.4); Monocytes # 0.6 K/mcL (0.0-1.3); Monocytes % 8.4 %; Neutrophils # 5.5 K/mcL (1.6-8.9); Nucleated Red Blood Cells 0.3 /100 WBC (0); Platelet Count 198 K/mcL (140-400); Red Cell Distribution Width 14.4 % (11.5-14.5); Segmented Neutrophils % 75.9 %
[2017-10-27 06:42] LABS: Calcium 7.9 mg/dL (8.6-10.3); Chol/HDL Ratio 7.6 (0-4.9); Magnesium 1.8 mg/dL (1.6-2.6)
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
[2017-10-27] MEDS ORDERED: 0.9 % Sodium Chloride 250 ML IVC PRN (08:30)
[2017-10-27 09:33] LABS: Hepatitis B Surface Antigen Nonreactive (Nonreactive)
[2017-10-27] MEDS: Calcium Acetate 667 MG CAPSULE PO SCH ×3 (14:38→18:08)
[2017-10-27] MEDS: Aspirin 81 MG TAB.CHEW PO SCH (14:42)
[2017-10-27] MEDS: Gabapentin 100 MG CAPSULE PO SCH ×3 (14:42→21:39)
[2017-10-27] MEDS: *HR* Amiodarone 200 MG TABLET PO SCH (14:43)
[2017-10-27] MEDS: Insulin DETEMIR 100 UNIT/ML X5UNITS SQ SCH ×2 (14:43→21:38)
--- NOTE | 2017-10-27 15:31 | Internal Med Progress Note ---
Date of Encounter: 10/27/17 Time of Encounter: 15:05 - Assessment and plan (1) Volume overload Current Visit: Yes Status: Acute Assessment and plan: Secondary to missed HD continue EXECUTIVE ADVISOR as per nephrology continue IV lasix nephro evaluation appreciated Qualifiers: Qualified Code(s): E87.70 - Fluid overload, unspecified (2) ESRD (end stage renal disease) on dialysis Current Visit: No Status: Chronic Assessment and plan: nephro evaluation appreciated (3) Hypertensive urgency Current Visit: No Status: Resolved Assessment and plan: REsolved BP within acceptable range continue home meds (4) Atrial fibrillation Current Visit: No Status: Chronic Assessment and plan: rate controlled with amiodarone anticoagulated with ledyamto pharmacist to dose coumadin continue to monitor INR goal INR: 2-3 Qualifiers: Atrial fibrillation type: chronic Qualified Code(s): I48.2 - Chronic atrial fibrillation (5) CAD (coronary artery disease) Current Visit: No Status: Chronic Assessment and plan: no signs of angina continue home meds ASA, PLavix, BB Qualifiers: Coronary Disease-Associated Artery/Lesion type: [place] artery [place] vs. transplanted heart: [place] heart Associated angina: with unstable angina Qualified Code(s): I25.110 - Atherosclerotic heart disease of [place] coronary artery with unstable angina pectoris (6) COPD (chronic obstructive pulmonary disease) Current Visit: No Status: Chronic Assessment and plan: not in acute exacerbation continue home medications Qualifiers: COPD type: unspecified COPD Qualified Code(s): J44.9 - Chronic obstructive pulmonary disease, unspecified (7) Diabetes Current Visit: No Status: Chronic Assessment and plan: sliding scale insulin algorithm monitor FS and BG ADA diet Qualifiers: Diabetes mellitus type: type 2 Chronic kidney disease stage: on chronic dialysis Qualified Code(s): E11.22 - Type 2 diabetes mellitus with diabetic chronic kidney disease; N18.6 - End stage renal disease; Z99.2 - Dependence on renal dialysis; Z99.2 - Dependence on renal dialysis; Z99.2 - Dependence on renal dialysis; N18.6 - End stage renal disease; N18.6 - End stage renal disease ; N18.6 - End stage renal disease; Z79.4 - intermediate designer (current) use of insulin; Z79.4 - alf (current) use of insulin; Z79.4 - alf (current) use of insulin; Z79.4 - alf (current) use of insulin; Z99.2 - Dependence on renal dialysis (8) Diastolic CHF, acute on chronic Current Visit: Yes Status: Acute Assessment and plan: secondary to missed HD continue EXECUTIVE ADVISOR as per nephro IV leta will closely monitor fluid restriction diet monitor I/Os daily weight (9) DVT prophylaxis Current Visit: No Status: Acute Assessment and plan: on coumadin - Subjective Interval history: Pt seen and examined at bedside. s/p HD today, reports of improvement in respiratory status s/p HD. Saturating well on room air BP better controlled - Constitutional Vitals: Temp Pulse Resp BP Pulse Ox 99.1 F 75 18 137/71 92 10/27/17 13:05 10/27/17 07:21 10/27/17 13:05 10/27/17 13:05 10/27/17 07:21 General appearance: Present: A&O X 3, no acute distress, obese, answers questions appropriately - Head Head exam: Present: atraumatic, normocephalic - Respiratory Respiratory exam: Absent: respiratory distress, wheezes (scattered rales) - Cardiovascular Cardiovascular exam: Present: RRR, +S1, +S2. Absent: diastolic murmur, gallop, rubs, systolic murmur - GI/Abdominal GI/Abdominal exam: Present: normal bowel sounds, soft, no peritoneal signs. Absent: distended, tenderness - Extremities Exam Extremities exam: Absent: calf tenderness, pedal edema, warm, radial pulses palpable and symmetrical - Neurological Exam Neurological exam: Present: alert, oriented X3 Internal Medicine: Result - Labs CBC & Chem 7: 10/27/17 06:07 10/27/17 06:07 Labs: Short CBC 10/27/17 Range/Units 06:07 WBC 7.2 (4.3-11.1) K/mcL Hgb 9.7 L (11.5-15.4) g/dL Hct 30.7 L (35.3-44.9) % Plt Count 198 (140-400) K/mcL Neutrophils # 5.5 (1.6-8.9) K/mcL BMP 10/27/17 06:07 Sodium 141 Potassium 5.0 Chloride 107 Carbon Dioxide 19 L BUN 93 H Creatinine 7.80 H Glucose 147 H Calcium 7.9 L Cardiac Enzymes 10/27/17 Range/Units 06:07 Troponin I 0.07 H* (< 0.04) ng/mL - ABG Interpretation ABG results: PT/INR, D-dimer PT 19.3 Seconds (9.4-12.1) H 10/27/17 06:07 Consult Discharge Plan - Plan Referrals: Eleazar Calhoun MD [Primary Care Provider] -
[2017-10-27] MEDS ORDERED: 0.9 % Sodium Chloride 2,000 ML ONE (15:36)
[2017-10-27] MEDS ORDERED: *HR* Warfarin 7.5 MG TABLET PO SCH (18:00)
[2017-10-27] MEDS ORDERED: Warfarin perPT PO PRN (18:00)
[2017-10-27] MEDS ORDERED: *HR* Warfarin 7.5 MG TABLET PO ONE (18:00)
[2017-10-28 07:07] LABS: INR 1.8; Prothrombin Time 19.6 Seconds (9.4-12.1)
[2017-10-28 07:23] LABS: Calcium 8.5 mg/dL (8.6-10.3); Magnesium 1.8 mg/dL (1.6-2.6); Phosphorous 7.7 mg/dL (2.7-4.5); Potassium 4.1 mEq/L (3.5-5.1)
[2017-10-28 07:31] LABS: Basophils % 0.8 %; Eosinophils % 0.4 %; Hematocrit 31.9 % (35.3-44.9); Hemoglobin 10.4 g/dL (11.5-15.4); Lymphocytes # 1.4 K/mcL (0.6-4.6); Lymphocytes % 27.1 %; Mean Corpuscular HGB Conc 32.6 g/dL (31.6-35.5); Mean Corpuscular Hemoglobin 32.3 pg (28.0-33.3); Mean Corpuscular Volume 99.1 fL (83.0-100.0); Mean Platelet Volume 9.9 fL (9.4-12.4); Monocytes # 0.5 K/mcL (0.0-1.3); Neutrophils # 3.1 K/mcL (1.6-8.9); Platelet Count 179 K/mcL (140-400); Red Blood Count 3.22 M/mcL (3.82-4.97); Red Cell Distribution Width 14.2 % (11.5-14.5); Segmented Neutrophils % 61.7 %
[2017-10-28] MEDS: *HR* Amiodarone 200 MG TABLET PO SCH (08:52)
[2017-10-28] MEDS: Gabapentin 100 MG CAPSULE PO SCH (08:52)
[2017-10-28] MEDS: Isosorbide MONOnitrate (24 HR) 60 MG TAB.ER.24H PO SCH (08:52)
[2017-10-28] MEDS: Metoprolol XL (24 HR) Succ 50 MG TAB.ER.24H PO SCH (08:52)
[2017-10-28] MEDS: Calcium Acetate 667 MG CAPSULE PO SCH ×2 (08:52→11:50)
[2017-10-28] MEDS: Aspirin 81 MG TAB.CHEW PO SCH (08:52)
[2017-10-28] MEDS: Insulin DETEMIR 100 UNIT/ML X5UNITS SQ SCH (08:53)
[2017-10-28] MEDS: Insulin LISPRO 300 UNITS/3 ML VIAL SQ SCH ×2 (08:54→11:51)
[2017-10-28] MEDS: Furosemide 40 MG/4 ML VIAL IVP SCH (08:54)
[2017-10-28] MEDS ORDERED: amLODIPine 5 MG TABLET PO SCH (11:30)
--- NOTE | 2017-10-28 11:30 | Discharge Summary ---
Date of Encounter: 10/28/17 Time of Encounter: 10:20 - Discharge Diagnosis (1) Volume overload Priority: Primary Status: Acute Qualifiers: Qualified Code(s): E87.70 - Fluid overload, unspecified (2) ESRD (end stage renal disease) on dialysis Priority: Secondary Status: Chronic (3) Hypertensive urgency Priority: Primary Status: Resolved (4) Atrial fibrillation Priority: Secondary Status: Chronic Qualifiers: Atrial fibrillation type: chronic Qualified Code(s): I48.2 - Chronic atrial fibrillation (5) CAD (coronary artery disease) Priority: Secondary Status: Chronic Qualifiers: Coronary Disease-Associated Artery/Lesion type: [place] artery [place] vs. transplanted heart: [place] heart Associated angina: with unstable angina Qualified Code(s): I25.110 - Atherosclerotic heart disease of [place] coronary artery with unstable angina pectoris (6) COPD (chronic obstructive pulmonary disease) Priority: Secondary Status: Chronic Qualifiers: COPD type: unspecified COPD Qualified Code(s): J44.9 - Chronic obstructive pulmonary disease, unspecified (7) Diabetes Priority: Secondary Status: Chronic Qualifiers: Diabetes mellitus type: type 2 Chronic kidney disease stage: on chronic dialysis Qualified Code(s): E11.22 - Type 2 diabetes mellitus with diabetic chronic kidney disease; N18.6 - End stage renal disease; Z99.2 - Dependence on renal dialysis; Z99.2 - Dependence on renal dialysis; Z99.2 - Dependence on renal dialysis; N18.6 - End stage renal disease; N18.6 - End stage renal disease ; N18.6 - End stage renal disease; Z79.4 - 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 builder 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; Z79.4 - intermediate (current) use of insulin; Z79.4 - chimney builder 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; Z79.4 - chimney builder 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; Z99.2 - Dependence on renal dialysis (8) Diastolic CHF, acute on chronic Priority: Primary Status: Acute (9) DVT prophylaxis Priority: Secondary Status: Acute - Discharge Medications Prescriptions: amLODIPine [Norvasc] 5 mg PO DAILY #30 tablet Home Medications: Clopidogrel [Plavix] 75 mg PO DAILY 03/17/17 [History] Furosemide [Lasix] 40 mg PO BID 03/17/17 [History] Gabapentin [Neurontin] 100 mg PO TID 03/17/17 [History] Hydralazine HCl 50 mg PO BID PRN 03/17/17 [History] Insulin Glargine,Hum.rec.anlog [Lantus Solostar] 18 - 20 unit SQ BID 03/17/17 [ History] Insulin LISPRO [Humalog] 4 - 16 unit SQ TIDWM 03/17/17 [History] Metoprolol XL (24 HR) Succ [Toprol Xl] 100 mg PO DAILY #30 tab.er.24h 03/22/17 [ Rx] Isosorbide MONOnitrate [Isosorbide Mononitrate ER] 120 mg PO DAILY 06/20/17 [ History] Quinine Sulfate [Qualaquin] 324 mg PO TID 06/20/17 [History] Aspirin 81 mg PO DAILY #30 tab.chew 06/21/17 [Rx] Allopurinol [Zyloprim 100 MG] 200 mg PO DAILY 07/24/17 [History] Calcium Acetate [Phos-LO] 1,334 mg PO TIDWM 07/24/17 [History] Amiodarone [Cordarone] 200 mg PO DAILY #30 tablet 09/22/17 [Rx] Albuterol Sulfate [Albuterol Inhaler] 2 puff IH Q6HR PRN 10/26/17 [History] Citalopram Hydrobromide [Citalopram HBr] 10 mg PO DAILY 10/26/17 [History] Warfarin [Coumadin] 7.5 mg PO 1800 10/26/17 [History] amLODIPine [Norvasc] 5 mg PO DAILY #30 tablet 10/28/17 [Rx] Allergies/Adverse Reactions: 3 Allergy/AdvReac Type Severity Reaction Status Date / Time bacitracin Allergy Rash Verified 07/24/17 10:16 [From Neosporin ([id number])] Neomycin Allergy Rash Verified 07/24/17 10:16 [From Neosporin ([id number])] polymyxin B Allergy Rash Verified 07/24/17 10:16 [From Neosporin ([id number])] atorvastatin AdvReac Cramping Verified 07/24/17 10:16 of the Muscles plastic Allergy Rash Uncoded 07/24/17 10:16 tape Allergy Rash Uncoded 07/24/17 10:16 Date of admission: 10/27/17 00:43 Primary care physician: Eleazar Calhoun MD Consults: 10/27/17 08:30 Consult to Dialysis [CONS] ONCE 10/28/17 08:30 Consult to Dialysis [CONS] ONCE Discharging clinician: Caroline French Anticipated date of discharge: 10/28/17 - Patient Status Disposition: Home, Self-Care Condition: Good Functional capacity at discharge: independent ambulation Overall status at discharge: patient is back to baseline - Discharge Instructions Follow Up With: Eleazar Calhoun MD [Primary Care Provider] - Additional Instructions: Please follow up with your primary care physician and courtroom deputy within one week after your discharge from the hospital. Please continue hemodialysis as per your primary community theater actor's recommendations. Amlodipine 5mg once a day has been added to your home medications for better blood pressure control. Please closely monitor your blood pressure at home. Hold your blood pressure medications for systolic blood pressure less than 100. Resume all other medications as prescribed by your primary care physician. - Diet and Activity Activity: resume usual activities as tolerated Diet: diabetic diet, low fat, low cholesterol, low salt diet Hospital course: Ms. Madden is a 67 year old female with PMH of ESRD on HD, CHF, HTN, DM, Afib on coumadin who was admitted for acute respiratory distress secondary to volume overload due to missed HD sessions. Pt was admitted for acute on chronic CHF and HTN urgency. She was evaluated by nephrology and underwent TRAFFIC POLICE OFFICER for volume removal. Pt's respiratory status returned to baseline. She also reported of having oxygen at home which she uses as needed. She has been saturating well on room air. She is noted to have elevated BP this morning. Amlodipine has been added to her home medications. Discharge pending better BP control. - Time Spent with Patient Total time spent providing and/or coordinating discharge services: Less than 30 minutes - Constitutional Vitals: Temp Pulse Resp BP Pulse Ox 98.1 F 65 16 169/75 93 10/28/17 11:21 10/28/17 11:21 10/28/17 11:21 10/28/17 11:21 10/28/17 11:21 General appearance: Present: A&O X 3, no acute distress, obese, answers questions appropriately - Head Head exam: Present: atraumatic, normocephalic - Eye Eye exam: Present: conjuntiva pink, sclera anicteric - Respiratory Respiratory exam: Present: CTAB. Absent: respiratory distress, wheezes - Cardiovascular Cardiovascular exam: Present: RRR, +S1, +S2. Absent: diastolic murmur, gallop, rubs, systolic murmur - GI/Abdominal GI/Abdominal exam: Present: normal bowel sounds, soft, no peritoneal signs. Absent: distended, tenderness - Extremities Exam Extremities exam: Present: warm, radial pulses palpable and symmetrical. Absent : calf tenderness, pedal edema - Neurological Exam Neurological exam: Present: alert, oriented X3
[2017-10-28 13:09] VITALS: BP 117/75
[2017-10-28] MEDS ORDERED: *HR* Warfarin 7.5 MG TABLET PO ONE (18:00)
[2017-10-29 02:50] LABS: Hepatitis B Surface Antibody 6.48 mIU/mL
--- NOTE | 2017-10-29 16:19 | Electrocardiograph Report ---
[address] [place] [address] Test Date: 2017-10-26 Pat Name: Vicky Madden Department: 104 Room: 2A14 Gender: F Drug Abuse Worker: : 1950 Requested By: Marianela See Order Number: [id number] Reading MD: Solis Rios DO Measurements Intervals [place] Rate: 80 P: 59 [place]: 180 QRS: -58 QRSD: 122 T: 82 QT: 416 QTc: 452 Interpretive Statements SINUS RHYTHM LEFT VENTRICULAR HYPERTROPHY AND ST-T CHANGE INFERIOR MYOCARDIAL INFARCTION, OF INDETERMINATE AGE ANTEROLATERAL MYOCARDIAL INFARCTION, OF INDETERMINATE AGE Electronically Signed On 10-29-2017 16:17:52 EST by Solis Rios DO
== END 2017-10-28 14:01 | disposition home or self-care (01) | DRG 304 ==
LOC: EMEROO 20:13 → 2ANU 20:13
PROVIDERS: ADMIT Family Medicine; ATTEND Internal Medicine

== ENCOUNTER 2017-11-01 12:13 | Inpatient (IN) ==
[2017-11-01 13:26] LABS: Eosinophils % 0.3 %; Immature Granulocytes % 1.3 % (0-4); Immature Platelets 2.6 % (1.1-6.1); Lymphocytes # 1.1 K/mcL (0.6-4.6); Lymphocytes % 27.2 %; Mean Corpuscular HGB Conc 31.6 g/dL (31.6-35.5); Mean Corpuscular Hemoglobin 31.4 pg (28.0-33.3); Mean Corpuscular Volume 99.5 fL (83.0-100.0); Mean Platelet Volume 9.3 fL (9.4-12.4); Monocytes # 0.5 K/mcL (0.0-1.3); Monocytes % 12.7 %; Neutrophils # 2.3 K/mcL (1.6-8.9); Platelet Count 209 K/mcL (140-400); Red Blood Count 3.82 M/mcL (3.82-4.97); Red Cell Distribution Width 14.2 % (11.5-14.5); Segmented Neutrophils % 57.5 %
[2017-11-01 13:56] LABS: Calcium 8.8 mg/dL (8.6-10.3); Potassium 4.1 mEq/L (3.5-5.1)
[2017-11-01] MEDS ORDERED: Acetaminophen 325 MG TABLET PO ONE (14:00)
[2017-11-01] MEDS ORDERED: Piperacillin/Tazobactam 3.375 GM in 0.9 % Sodium Chloride Mini Bag 100 ML IVPB ONE (14:12)
[2017-11-01 14:45] LABS: INR 2.2; Prothrombin Time 24.1 Seconds (9.4-12.1)
--- NOTE | 2017-11-01 15:25 | Emergency Department Note ---
Disposition Clinical Impression: NSTEMI (non-ST elevated myocardial infarction), SOB (shortness of breath) Disposition: Admitted As Inpatient Condition: Good Time of Disposition: 15:42 General Adult HPI - General Chief complaint: ED Shortness of Breath/Dyspnea Stated complaint: SOB/Fever Time Seen by Provider: 11/01/17 13:45 Source: patient Mode of arrival: ambulatory Limitations: no limitations Nursing Notes Reviewed: Yes Vital Signs Reviewed: Yes - History of Present Illness HPI Narrative: 67-year-old female presenting to the emergency department with chief complaint of overall not feeling well. Patient states she is discharged from the hospital a few days ago. She was admitted for high pulse and hypertension. Patient has chronic kidney disease and has dialysis Sunday. She has not significant cardiac history of 3 MIs with 4 stents. Patient's currently on Coumadin. Patient states for the past couple of days she just overall not felt well. She has felt weak and had increased shortness of breath. She denies chest pain. She was sent from her primary care physician's office for a fever of 100.5 and increased shortness of breath with concern for pneumonia. Patient has no known sick contacts. Pain Scale: 6 - Related Data Home Medications Medication Instructions Recorded Confirmed Clopidogrel [Plavix] 75 mg PO DAILY 03/17/17 11/01/17 Furosemide [Lasix] 40 mg PO BID 03/17/17 11/01/17 Gabapentin [Neurontin] 100 mg PO TID 03/17/17 11/01/17 Hydralazine HCl 50 mg PO BID PRN 03/17/17 11/01/17 Insulin Glargine,Hum.rec.anlog 18 - 20 unit SQ BID 03/17/17 11/01/17 [Lantus Solostar] Insulin LISPRO [Humalog] 4 - 16 unit SQ TIDWM 03/17/17 11/01/17 Isosorbide MONOnitrate [Isosorbide 120 mg PO DAILY 06/20/17 11/01/17 Mononitrate ER] Quinine Sulfate [Qualaquin] 324 mg PO TID 06/20/17 11/01/17 Allopurinol [Zyloprim 100 MG] 200 mg PO DAILY 07/24/17 11/01/17 Calcium Acetate [Phos-LO] 1,334 mg PO TIDWM 07/24/17 11/01/17 Albuterol Sulfate [Albuterol 2 puff IH Q6HR PRN 10/26/17 11/01/17 Inhaler] Citalopram Hydrobromide 10 mg PO DAILY 10/26/17 11/01/17 [Citalopram HBr] Warfarin [Coumadin] 7.5 mg PO 1800 10/26/17 11/01/17 Previous Rx's Medication Instructions Recorded Metoprolol XL (24 HR) Succ [Toprol 100 mg PO DAILY #30 tab.er.24h 03/22/17 Xl] Aspirin 81 mg PO DAILY #30 tab.chew 06/21/17 Amiodarone [Cordarone] 200 mg PO DAILY #30 tablet 09/22/17 amLODIPine [Norvasc] 5 mg PO DAILY #30 tablet 10/28/17 Allergies Allergy/AdvReac Type Severity Reaction Status Date / Time bacitracin Allergy Rash Verified 07/24/17 10:16 [From Neosporin ([id number])] Neomycin Allergy Rash Verified 07/24/17 10:16 [From Neosporin ([id number])] polymyxin B Allergy Rash Verified 07/24/17 10:16 [From Neosporin ([id number])] atorvastatin AdvReac Cramping Verified 07/24/17 10:16 of the Muscles plastic Allergy Rash Uncoded 07/24/17 10:16 tape Allergy Rash Uncoded 07/24/17 10:16 All systems ED: reviewed and negative except as stated. Constitutional: Reports: fever, weakness Cardiovascular: Denies: chest pain, palpitations Respiratory: Reports: dyspnea. Denies: wheezes Gastrointestinal: Reports: diarrhea (baseline). Denies: abdominal pain, nausea , vomiting Neurological: Denies: numbness, paresthesias Past Medical History - Past Medical History Attestation: Yes The following information was validated with the patient. Medical history: Reports: atrial fibrillation, CHF, coronary artery disease, diabetes, dialysis, hypertension, myocardial infarction, renal disease Surgical history: Reports: angioplasty/stent, cholecystectomy, hysterectomy, other Psychiatric history: Reports: anxiety PRODUCTION CONTROL SUPERVISOR history: Reports: no PRODUCTION CONTROL SUPERVISOR history - Social History Smoking Status: Never smoker Smokeless Tobacco Status: No Alcohol use: Reports: none Drug use: Reports: none Physical Exam - General Limitations: no limitations General appearance: alert, in no apparent distress - Head Head exam: atraumatic, normocephalic, normal inspection - Eye Eye exam: Present: normal appearance. Absent: scleral icterus, conjunctival injection - ENT ENT exam: normal exam, mucous membranes moist - Neck Neck exam: Present: normal inspection, full ROM. Absent: tenderness, meningismus - Chest Chest inspection: Present: normal inspection, symmetric chest wall rise. Absent : tenderness, rash - Respiratory Respiratory exam: Present: other (Rhonchi heard in the left upper lobe) - Cardiovascular Cardiovascular exam: Present: regular rate, normal rhythm, normal heart sounds - Abdominal Exam Abdominal exam: Present: soft, Non-Tender. Absent: distention, guarding, rebound - Extremities Exam Extremities exam: Present: normal inspection, full ROM - Neurological Exam Neurological exam: Present: alert, oriented X3 - Psychiatric Psychiatric exam: Present: normal affect, normal mood - Skin Skin exam: Present: warm, dry Course Course Narrative: 67-year-old female presenting to the emergency Department chief complaint of increasing shortness of breath overall not feeling well. We will obtain basic lab work including troponin, EKG and flu swab. Patient is alert and oriented 3 and enterocele vital signs at this time. Disposition pending these results. Patient agrees to this plan. - Reevaluation(s) Reevaluation #1: Patient's troponin showed the elevated at 0.08. Due to end-stage renal disease she has had elevated troponins in the past. She denies chest pain at this time. EKG does show new T-wave abnormalities. I spoke with the general car supervisor yard on -call Dr. Rogers who states there is no need to start heparin at this time due to therapeutic INR. We will plan to admit the patient at this time for increased shortness of breath and elevated troponin. Patient is alert and oriented 3 in the room and stable vital signs. She agrees to this plan. Vital Signs Temperature 100.3 F H 11/01/17 12:51 Pulse Rate 79 11/01/17 12:51 Respiratory Rate 18 11/01/17 12:51 Blood Pressure 135/75 11/01/17 12:51 O2 Sat by Pulse Oximetry 95 11/01/17 12:51 Temperature 97.8 F 11/01/17 19:27 Pulse Rate 65 11/01/17 19: Respiratory Rate 18 02/15/18 19:27 Blood Pressure 139/54 11/01/17 19:27 O2 Sat by Pulse Oximetry 96 11/01/17 19:27 Oxygen Delivery Oxygen Delivery Nasal Cannula Medical Decision Making - Lab Data Result diagrams: 11/01/17 13:18 11/01/17 13:18 Lab Results 11/01/17 11/01/17 11/01/17 Range/Units 13:18 13:18 13:18 WBC 3.9 L (4.3-11.1) K/mcL RBC 3.82 (3.82-4.97) M/mcL Hgb 12.0 D (11.5-15.4) g/dL Hct 38.0 (35.3-44.9) % MCV 99.5 (83.0-100.0) fL MCH 31.4 (28.0-33.3) pg MCHC 31.6 (31.6-35.5) g/dL RDW 14.2 (11.5-14.5) % Plt Count 209 (140-400) K/mcL MPV 9.3 L (9.4-12.4) fL Immature Gran % 1.3 (0-4) % Seg Neutrophils % 57.5 % Lymphocytes % 27.2 % Monocytes % 12.7 % Eosinophils % 0.3 % Basophils % 1.0 % Neutrophils # 2.3 (1.6-8.9) K/mcL Lymphocytes # 1.1 (0.6-4.6) K/mcL Monocytes # 0.5 (0.0-1.3) K/mcL Eosinophils # 0.0 (0.0-0.6) K/mcL Basophils # 0.0 (0.0-0.2) K/mcL Immature Plt Fraction 2.6 (1.1-6.1) % PT (9.4-12.1) Seconds INR Sodium 135 L (136-145) mEq/L Potassium 4.1 (3.5-5.1) mEq/L Chloride 96 L (98-107) mEq/L Carbon Dioxide 24 (23-29) mEq/L BUN 43 H (8-23) mg/dL Creatinine 6.46 H (0.60-1.20) mg/dL Est GFR ( Amer) 8 L (> 60) Est GFR (Non-Af Amer) 6 L (> 60) BUN/Creatinine Ratio 7 (6-26) Glucose 112 H (70-105) mg/dL Calculated Osmolality 292 (280-300) Lactic Acid 1.6 (0.5-2.2) mmol/L Calcium 8.8 (8.6-10.3) mg/dL Troponin I (< 0.04) ng/mL B-Natriuretic Peptide (Less than 100) pg/mL 11/01/17 11/01/17 11/01/17 Range/Units 13:18 13:18 13:18 WBC (4.3-11.1) K/mcL RBC (3.82-4.97) M/mcL Hgb (11.5-15.4) g/dL Hct (35.3-44.9) % MCV (83.0-100.0) fL MCH (28.0-33.3) pg MCHC (31.6-35.5) g/dL RDW (11.5-14.5) % Plt Count (140-400) K/mcL MPV (9.4-12.4) fL Immature Gran % (0-4) % Seg Neutrophils % % Lymphocytes % % Monocytes % % Eosinophils % % Basophils % % Neutrophils # (1.6-8.9) K/mcL Lymphocytes # (0.6-4.6) K/mcL Monocytes # (0.0-1.3) K/mcL Eosinophils # (0.0-0.6) K/mcL Basophils # (0.0-0.2) K/mcL Immature Plt Fraction (1.1-6.1) % PT 24.1 H (9.4-12.1) Seconds INR 2.2 Sodium (136-145) mEq/L Potassium (3.5-5.1) mEq/L Chloride (98-107) mEq/L Carbon Dioxide (23-29) mEq/L BUN (8-23) mg/dL Creatinine (0.60-1.20) mg/dL Est GFR ( Amer) (> 60) Est GFR (Non-Af Amer) (> 60) BUN/Creatinine Ratio (6-26) Glucose (70-105) mg/dL Calculated Osmolality (280-300) Lactic Acid (0.5-2.2) mmol/L Calcium (8.6-10.3) mg/dL Troponin I 0.08 H* (< 0.04) ng/mL B-Natriuretic Peptide 498 H (Less than 100) pg/mL - EKG Data EKG #1 EKG attestation: Yes I reviewed and interpreted this EKG. EKG results narrative: Sinus rhythm. Left ventricular hypertrophy. 70 bpm. PA interval 176, QRS 104 , QTC 437. Biphasic T waves noted in V2 and V3. When compared to previous EKG completed on 10/26/2017 worsening of biphasic T waves. Attestation Statement - Attestation Attestation: I, Ez Chiang, examined this patient and my medical decision-making was reviewed with the DRILL PRESS OPERATOR FOR METAL/PA/Advanced Practice Nurse/Resident Physician. I agree with the documented findings, disposition and treatment plan as described except to the extent set forth below. Cc 7-year-old female presents to emergency Department with concerns of shortness of breath and a fever. Patient states she was recently admitted to the hospital for evaluation of hypertension. Patient states that after she was discharged to became extremely short of breath and fatigued and has generalized malaise. On physical exam the patient has wheezing in the bilateral posterior lung easley. She has trace pitting edema bilateral lower extremities. Chest x- ray shows vascular congestion and patient does have an elevated BNP. Patient is also influenza positive which would account for her generalized malaise and fever. Patient also has elevation of her troponin at 0.08. She has a history of cardiac disease. Patient has a history of elevated troponins in the past. She is also a renal failure patient with elevated creatinine today again. Patient will be admitted to the hospital for further evaluation of her shortness of breath, fever and current influenza.
[2017-11-01] MEDS ORDERED: Piperacillin/Tazobactam 3.375 GM in Water for inj. (sterile) 20 ML 20 ML IVP ONE (19:00)
[2017-11-01] MEDS ORDERED: Naloxone 0.4 MG/ML INJ IVP PRN (23:00)
[2017-11-01] MEDS ORDERED: hydrALAZINE 25 MG TABLET PO PRN (23:02)
--- NOTE | 2017-11-01 23:12 | Internal Med History&Physical ---
Date of Encounter: 11/01/17 Time of Encounter: 23:07 Assessment and Plan (1) SOB (shortness of breath) Current visit: Yes Status: Acute 67/female Known to have have multiple comorbid conditions. Admitted with worsening shortness of breath. Workup in the emergency room: Influenza A positive. Mildly elevated troponin. On examination: Bibasilar crepitations. Rhinorrhea++ Assessment: Influenza is positive in a patient who has multiple comorbid conditions. Elevated troponin likely secondary to demand ischemia. Plan: Admit is a observation Cycle troponin. I have personally spoke to Dr. Ruiz: Tamiflu dosing and schedule as per nephrology. Close monitoring of the patient. Of note: I examined this patient came 2A 45. All questions answered. (2) ESRD (end stage renal disease) on dialysis Current visit: No Status: Chronic Patient is known to have a end-stage renal disease. Patient is on her dialysis. Patient's dialysis days are Sunday/Sunday/Sunday. Patient had a successful dialysis yesterday. Patient is due for dialysis tomorrow (3) Hypertension Current visit: No Status: Chronic Patient blood pressure is very well controlled. We will keep monitoring the blood pressure. Qualifiers: Hypertension type: unspecified Qualified Code(s): I10 - Essential (primary ) hypertension (4) CAD (coronary artery disease) Current visit: No Status: Chronic Patient is known to have a coronary artery disease. Noted that patient has been stented in the past. At this time even though patient's troponin is positive it is likely secondary to demand ischemia. Patient denies any active chest pain. Qualifiers: Coronary Disease-Associated Artery/Lesion type: [place] artery [place] vs. transplanted heart: [place] heart Associated angina: with unstable angina Qualified Code(s): I25.110 - Atherosclerotic heart disease of [place] coronary artery with unstable angina pectoris (5) Paroxysmal A-fib Current visit: No Status: Acute Patient is known to have a paroxysmal A. fib. Rate control: Metoprolol. Anticoagulation: coumadin (6) DVT prophylaxis Current visit: No Status: Acute Coumadin Medical decision making: This patient has a moderate to severe risk of worsening in spite of being on appropriate medication due to the underlying chronic comorbid conditions. Internal Medicine - H&P: HPI Chief complaint: shortness of breath Admitted From: Emergency Dept Plans for Post Hospital Care: Home History of present illness: PCP: Dr Calhoun Chain Machine Operator : Dr Hurst Brief PMH: ESRD on HD ( MWF), DM, HTN, Dyslipidemia, CAD. HPI: Patient underwent dialysis yesterday and after dialysis patient was persistently complaining of shortness of breath. Patient was unable to walk even a few steps but noted that upon rest her symptoms were getting better. This afternoon was progressively worsening in terms of her shortness of breath that is the reason she decided to come to the emergency room for further evaluation. Patient denies chest pain, nausea, vomiting, abdominal pain, dizziness and diarrhea. Workup in the emergency room: Patient was evaluated in the emergency room. Basic labs were drawn. Noted that patient's troponin was positive. Cardiology was consulted from the emergency room. Patient's flu test was positive for influenza A. Reason for admission: Positive troponin/influenza A positive in a patient who has multiple comorbid conditions and presently on her dialysis. Family history noncontributory Past Med Surg Social Fam HX - Past Medical History Medical history: atrial fibrillation, CHF, coronary artery disease, diabetes, dialysis, hypertension, myocardial infarction, renal disease Psychiatric history: anxiety - Past Surgical History Surgical History: angioplasty/stent, cholecystectomy, hysterectomy, other - Social History Smoking Status: Never smoker Smokeless Tobacco Status: No Alcohol use: none Drug use: none - Family History Father Family Member Ethnicity: Non- Living Status: Hx Family Cardiac Disorders: Yes ([place]) Mother Family Member Ethnicity: Non- Living Status: Hx Family Cardiac Disorders: Yes (HD) Hx Family Respiratory Disorders: No Hx Family Cancer: No Hx Family GI Disorders: No Hx Family Endocrine Disorder: Yes (DM) Hx Family Neuromuscular Disorders: No Hx Family Neurologic Disorders: No Hx Family HEENT Disorders: No Hx Family Autoimmune Disorders: No Brother Family Member Ethnicity: Non- Living Status: Still Living Hx Family Cardiac Disorders: Yes Hx Family Respiratory Disorders: Yes (sleep apnea) Hx Family Cancer: No Hx Family GI Disorders: No Hx Family Endocrine Disorder: Yes (DM) Hx Family Neuromuscular Disorders: No Hx Family Neurologic Disorders: No Hx Family HEENT Disorders: No Hx Family Autoimmune Disorders: No Sister Family Member Ethnicity: Non- Living Status: Hx Family Cardiac Disorders: Yes (HTN) Hx Family Respiratory Disorders: No Hx Family Cancer: Yes (Ovarian) Hx Family GI Disorders: No Hx Family Endocrine Disorder: Yes (DM) Hx Family Neuromuscular Disorders: No Hx Family Neurologic Disorders: No Hx Family HEENT Disorders: No Hx Family Autoimmune Disorders: No Internal Medicine - H&P: Meds Clopidogrel [Plavix] 75 mg PO DAILY 03/17/17 [History] Furosemide [Lasix] 40 mg PO BID 03/17/17 [History] Gabapentin [Neurontin] 100 mg PO TID 03/17/17 [History] Hydralazine HCl 50 mg PO BID PRN 03/17/17 [History] Insulin Glargine,Hum.rec.anlog [Lantus Solostar] 18 - 20 unit SQ BID 03/17/17 [ History] Insulin LISPRO [Humalog] 4 - 16 unit SQ TIDWM 03/17/17 [History] Metoprolol XL (24 HR) Succ [Toprol Xl] 100 mg PO DAILY #30 tab.er.24h 03/22/17 [ Rx] Isosorbide MONOnitrate [Isosorbide Mononitrate ER] 120 mg PO DAILY 06/20/17 [ History] Quinine Sulfate [Qualaquin] 324 mg PO TID 06/20/17 [History] Aspirin 81 mg PO DAILY #30 tab.chew 06/21/17 [Rx] Allopurinol [Zyloprim 100 MG] 200 mg PO DAILY 07/24/17 [History] Calcium Acetate [Phos-LO] 1,334 mg PO TIDWM 07/24/17 [History] Amiodarone [Cordarone] 200 mg PO DAILY #30 tablet 09/22/17 [Rx] Albuterol Sulfate [Albuterol Inhaler] 2 puff IH Q6HR PRN 10/26/17 [History] Citalopram Hydrobromide [Citalopram HBr] 10 mg PO DAILY 10/26/17 [History] Warfarin [Coumadin] 7.5 mg PO 1800 10/26/17 [History] amLODIPine [Norvasc] 5 mg PO DAILY #30 tablet 10/28/17 [Rx] 3 Allergy/AdvReac Type Severity Reaction Status Date / Time bacitracin Allergy Rash Verified 07/24/17 10:16 [From Neosporin ([id number])] Neomycin Allergy Rash Verified 07/24/17 10:16 [From Neosporin ([id number])] polymyxin B Allergy Rash Verified 07/24/17 10:16 [From Neosporin ([id number])] atorvastatin AdvReac Cramping Verified 07/24/17 10:16 of the Muscles plastic Allergy Rash Uncoded 07/24/17 10:16 tape Allergy Rash Uncoded 07/24/17 10:16 All Systems PM: A 10-system review of systems was performed and is negative for pertinent findings except as documented above in the HPI. - Constitutional Constitutional: no chills, no fever(s), no night sweats - EENT Eyes: no change in vision, no discharge, no pain, no photophobia Ears: no ear discharge, no ear pain, no tinnitus Nose, mouth and throat: no dysphagia, no nasal discharge, no neck pain, no sore throat - Cardiovascular Cardiovascular ROS IM: no chest pain, no diaphoresis, no dyspnea, no lightheadedness, no palpitations, no syncope - Respiratory Respiratory: cough, dyspnea, wheezing, no excessive phlegm production - Gastrointestinal Gastrointestinal: no abdominal pain, no diarrhea, no hematemesis, no hematochezia, no melena, no nausea, no vomiting - Genitourinary Genitourinary: no change in urinary stream, no dysuria, no flank pain, no hematuria - Musculoskeletal Musculoskeletal ROS IM: no numbness, no tingling - Integumentary Integumentary IM: no rash, no unusual bruising - Neurological Neurological ROS: no confusion, no convulsions, no focal weakness, no numbness, no tingling, no tremor(s) - Hematologic/Lymphatic Hematologic/Lymphatic: no easy bruising - Constitutional Vitals: Temp Pulse Resp BP Pulse Ox 97.8 F 65 18 139/54 96 11/01/17 19:27 11/01/17 19:27 11/01/17 19:27 11/01/17 19:27 11/01/17 19:27 General appearance: Present: A&O X 3, pleasant, no acute distress, answers questions appropriately - Head Head exam: Present: atraumatic, normocephalic - Eye Eye exam: Present: PERRL, conjuntiva pink, sclera anicteric Pupils: Present: PERRL - Neck Neck exam general surgery: Present: supple, trachea midline. Absent: lymphadenopathy - Respiratory Respiratory exam: Present: CTAB. Absent: accessory muscle use, rales, rhonchi, wheezes - Cardiovascular Cardiovascular exam: Present: RRR, +S1, +S2. Absent: diastolic murmur, gallop, rubs, systolic murmur - GI/Abdominal GI/Abdominal exam: Present: normal bowel sounds, soft, no peritoneal signs. Absent: distended, tenderness - Extremities Exam Extremities exam: Present: warm, radial pulses palpable and symmetrical. Absent : calf tenderness, cyanotic, pedal edema - Neurological Exam Neurological exam: Present: CN II-XII intact, oriented X3, no focal deficits. Absent: pronater drift, facial droop, speech deficit - Skin Skin exam: Present: dry, intact Internal Med - H&P Results - Labs CBC & Chem 7: 11/01/17 13:18 11/01/17 13:18
[2017-11-02 05:25] LABS: Basophils % 0.6 %; Eosinophils % 0.3 %; Hematocrit 35.4 % (35.3-44.9); Immature Granulocytes % 1.3 % (0-4); Lymphocytes # 0.9 K/mcL (0.6-4.6); Lymphocytes % 29.6 %; Mean Corpuscular HGB Conc 31.1 g/dL (31.6-35.5); Mean Corpuscular Hemoglobin 30.8 pg (28.0-33.3); Mean Corpuscular Volume 99.2 fL (83.0-100.0); Mean Platelet Volume 9.7 fL (9.4-12.4); Monocytes # 0.5 K/mcL (0.0-1.3); Monocytes % 14.2 %; Neutrophils # 1.7 K/mcL (1.6-8.9); Platelet Count 162 K/mcL (140-400); Red Blood Count 3.57 M/mcL (3.82-4.97); Red Cell Distribution Width 14.2 % (11.5-14.5)
[2017-11-02 05:33] LABS: INR 2.2; Prothrombin Time 24.3 Seconds (9.4-12.1)
[2017-11-02 05:36] LABS: Activated Partial Thrombo Time 69.3 Seconds (26.0-36.0)
[2017-11-02 06:00] LABS: Alanine Aminotransferase 20 Units/L (7-52); Albumin 3.7 g/dL (3.5-5.7); Alkaline Phosphatase 58 Units/L (34-104); Aspartate Amino Transferase 38 Units/L (13-39); BUN/Creatinine Ratio 7 (6-26); Bilirubin,Total 0.4 mg/dL (0.3-1.0); Blood Urea Nitrogen 54 mg/dL (8-23); Calcium 8.1 mg/dL (8.6-10.3); Carbon Dioxide 22 mEq/L (23-29); Chloride 96 mEq/L (98-107); Chol/HDL Ratio 12.1 (0-4.9); Cholesterol 241 mg/dL (< 200); Globulin 3.6 g/dL (2.4-3.5); Glucose 132 mg/dL (70-105); HDL Cholesterol 20 mg/dL (40-59); Magnesium 2.1 mg/dL (1.6-2.6); Osmolality,Calculated 297 (280-300); Phosphorous 8.5 mg/dL (2.7-4.5); Potassium 3.7 mEq/L (3.5-5.1); Sodium 135 mEq/L (136-145); Total Protein 7.3 g/dL (6.4-8.9); Triglycerides 402 mg/dL (< 150); eGFR For African Americans 7 (> 60); eGFR For Non-African Americans 5 (> 60)
[2017-11-02] MEDS ORDERED: Insulin LISPRO 300 UNITS/3 ML VIAL SQ SCH (08:00)
[2017-11-02] MEDS ORDERED: *HR* Dextrose 50 % in Water (Syg) 50 ML SYRINGE IVP PRN (08:16)
[2017-11-02] MEDS ORDERED: D5% in Water 1,000 ML IVC PRN (08:16)
[2017-11-02] MEDS ORDERED: Dextrose Gel 15 GM/37.5 ML TUBE PO PRN ×2 (08:16)
[2017-11-02] MEDS: Insulin LISPRO 300 UNITS/3 ML VIAL SQ SCH ×4 (08:30→20:49)
[2017-11-02] MEDS ORDERED: [UNRECOGNIZED DRUG - OTHER] SQ SCH (09:00)
[2017-11-02] MEDS ORDERED: INSULIN GLARGINE HUM REC ANLOG U SQ SCH (09:00)
[2017-11-02] MEDS ORDERED: QUININE SULFATE 324 MG PO SCH (09:00)
[2017-11-02] MEDS ORDERED: Furosemide 40 MG TABLET PO SCH (09:00)
[2017-11-02] MEDS ORDERED: 0.9 % Sodium Chloride 250 ML IVC PRN (09:32)
[2017-11-02] MEDS: Gabapentin 100 MG CAPSULE PO SCH ×3 (09:54→20:47)
[2017-11-02] MEDS: Insulin DETEMIR 100 UNIT/ML X5UNITS SQ SCH ×2 (09:54→20:48)
[2017-11-02] MEDS: Calcium Acetate 667 MG CAPSULE PO SCH ×3 (09:55→16:25)
[2017-11-02] MEDS: Furosemide 40 MG TABLET PO SCH ×2 (09:55→16:27)
[2017-11-02] MEDS: Aspirin 81 MG TAB.CHEW PO SCH (09:55)
[2017-11-02] MEDS ORDERED: 0.9 % Sodium Chloride 1,000 ML ONE (10:00)
--- NOTE | 2017-11-02 10:23 | Electrocardiograph Report ---
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
--- NOTE | 2017-11-02 11:02 | Cardiology Consult Note ---
Date of Encounter: 11/02/17 Time of Encounter: 11:00 Assessment and Plan (1) Influenza A Current Visit: Yes Status: Acute Patient presents with complaints of general malaise, cough. Influenza A positive. Your medical management. (2) Troponin level elevated Current Visit: No Status: Acute Mild elevation in the setting of respiratory insufficiency and end-stage renal disease. Presentation is not consistent with ACS. Chronic troponin elevation noted. No chest pain reported. No new ECG changes. Recent revascularization performed. Recent TTE, preserved LV EF. Limited TTE ordered. If no significant findings, then no compelling indication for further cardiovascular testing at this time. Cardiology will sign off. Please call to the questions or concerns. (3) CAD in [place] artery Current Visit: No Status: Acute [place] CAD, recent LHC with PTCA to circumflex artery. LV EF preserved. Recommend continue aspirin/Plavix, beta rancho, and Imdur therapy. Patient reports statin allergy. (4) Paroxysmal A-fib Current Visit: No Status: Acute Paroxysmal atrial fibrillation. Continue Coumadin and amiodarone therapy. Discussion w patient/family: The assessment and plan as outlined above was discussed with the patient and/or family members who expressed understanding and agreement. All questions were answered. Thank you for involving us in the care of your patient. Please call with any questions. History of Present Illness Consult date: 11/02/17 Requesting physician: Doni Lino Consult reason: Troponin elevation Chief complaint: Cough History of present illness: Ms. Madden is a 67 year old female with a history of CAD, end-stage renal disease, diabetes, essential HTN. Presents to the hospital with a primary complaint of cough, shortness of breath. Patient tested positive for influenza A. Mild troponin elevation noted. No chest pain reported. Upon review of chart, patient has what appears to be a chronic troponin elevation. Past Med Surg Social Fam HX - Past Medical History Medical history: atrial fibrillation, CHF, coronary artery disease, diabetes, dialysis, hypertension, myocardial infarction, renal disease Psychiatric history: anxiety - Past Surgical History Surgical History: angioplasty/stent, cholecystectomy, hysterectomy, other - Social History Smoking Status: Never smoker Smokeless Tobacco Status: No Alcohol use: none Drug use: none - Family History Father Family Member Ethnicity: Non- Living Status: Hx Family Cardiac Disorders: Yes ([place]) Mother Family Member Ethnicity: Non- Living Status: Hx Family Cardiac Disorders: Yes (HD) Hx Family Respiratory Disorders: No Hx Family Cancer: No Hx Family GI Disorders: No Hx Family Endocrine Disorder: Yes (DM) Hx Family Neuromuscular Disorders: No Hx Family Neurologic Disorders: No Hx Family HEENT Disorders: No Hx Family Autoimmune Disorders: No Brother Family Member Ethnicity: Non- Living Status: Still Living Hx Family Cardiac Disorders: Yes Hx Family Respiratory Disorders: Yes (sleep apnea) Hx Family Cancer: No Hx Family GI Disorders: No Hx Family Endocrine Disorder: Yes (DM) Hx Family Neuromuscular Disorders: No Hx Family Neurologic Disorders: No Hx Family HEENT Disorders: No Hx Family Autoimmune Disorders: No Sister Family Member Ethnicity: Non- Living Status: Hx Family Cardiac Disorders: Yes (HTN) Hx Family Respiratory Disorders: No Hx Family Cancer: Yes (Ovarian) Hx Family GI Disorders: No Hx Family Endocrine Disorder: Yes (DM) Hx Family Neuromuscular Disorders: No Hx Family Neurologic Disorders: No Hx Family HEENT Disorders: No Hx Family Autoimmune Disorders: No Medications and Allergies Clopidogrel [Plavix] 75 mg PO DAILY 03/17/17 [History] Furosemide [Lasix] 40 mg PO BID 03/17/17 [History] Gabapentin [Neurontin] 100 mg PO TID 03/17/17 [History] Hydralazine HCl 50 mg PO BID PRN 03/17/17 [History] Insulin Glargine,Hum.rec.anlog [Lantus Solostar] 18 - 20 unit SQ BID 03/17/17 [ History] Insulin LISPRO [Humalog] 4 - 16 unit SQ TIDWM 03/17/17 [History] Metoprolol XL (24 HR) Succ [Toprol Xl] 100 mg PO DAILY #30 tab.er.24h 03/22/17 [ Rx] Isosorbide MONOnitrate [Isosorbide Mononitrate ER] 120 mg PO DAILY 06/20/17 [ History] Quinine Sulfate [Qualaquin] 324 mg PO TID 06/20/17 [History] Aspirin 81 mg PO DAILY #30 tab.chew 06/21/17 [Rx] Allopurinol [Zyloprim 100 MG] 200 mg PO DAILY 07/24/17 [History] Calcium Acetate [Phos-LO] 1,334 mg PO TIDWM 07/24/17 [History] Amiodarone [Cordarone] 200 mg PO DAILY #30 tablet 09/22/17 [Rx] Albuterol Sulfate [Albuterol Inhaler] 2 puff IH Q6HR PRN 10/26/17 [History] Citalopram Hydrobromide [Citalopram HBr] 10 mg PO DAILY 10/26/17 [History] Warfarin [Coumadin] 7.5 mg PO 1800 10/26/17 [History] amLODIPine [Norvasc] 5 mg PO DAILY #30 tablet 10/28/17 [Rx] 3 Allergy/AdvReac Type Severity Reaction Status Date / Time bacitracin Allergy Rash Verified 07/24/17 10:16 [From Neosporin ([id number]-[id number])] Neomycin Allergy Rash Verified 07/24/17 10:16 [From Neosporin ([id number]-wwd-[id number])] polymyxin B Allergy Rash Verified 07/24/17 10:16 [From Neosporin ([id number]-eax-twjyw)] atorvastatin AdvReac Cramping Verified 07/24/17 10:16 of the Muscles plastic Allergy Rash Uncoded 07/24/17 10:16 tape Allergy Rash Uncoded 07/24/17 10:16 All Systems Review: A 10-system review of systems was performed and is negative for pertinent findings except as documented above in the HPI. - Cardiovascular Cardiovascular: as per HPI, dyspnea at rest, dyspnea on exertion - Respiratory Respiratory: cough Physical Examination Vital Signs, Last 4 Hours Temp Pulse Resp BP Pulse Ox 11/02/17 07:28 99.0 F 76 18 171/91 97 General: Conversant, No Apparent Distress HEENT: Atraumatic, Normocephaly, Mucus Membranes Moist Neck: No JVD, Normal carotid pulses Cardiac: Reg Rate and Rhythm, Normal S1 and S2, No Murmur Lungs: Other (Shallow, mild wheezing noted.) Neuro: Alert and responsive, No focal deficits noted Abdomen: Soft, Non-Tender Skin: No rashes noted on visualized skin Musculoskeletal: No Chest Wall Tenderness Extremities: No Clubbing, No Cyanosis, No Edema Results 11/02/17 04:59 11/02/17 04:59 Lab Results 11/01/17 11/02/17 11/02/17 23:17 04:59 04:59 WBC 3.2 L Hgb 11.0 L Hct 35.4 Plt Count 162 INR 2.2 APTT 69.3 H Sodium Potassium Chloride Carbon Dioxide BUN Creatinine Glucose Calcium Magnesium Total Bilirubin AST ALT Alkaline Phosphatase Troponin I 0.07 H* 11/02/17 11/02/17 04:59 04:59 WBC Hgb Hct Plt Count INR APTT Sodium 135 L Potassium 3.7 Chloride 96 L Carbon Dioxide 22 L BUN 54 H Creatinine 7.44 H Glucose 132 H Calcium 8.1 L Magnesium 2.1 Total Bilirubin 0.4 AST 38 ALT 20 Alkaline Phosphatase 58 Troponin I 0.24 H* - Imaging and Cardiology Echo: report reviewed Cardiac cath: report reviewed - EKG Interpretation EKG results cardiology: personally reviewed Consult Discharge Plan - Plan Referrals: Eleazar Calhoun MD [Primary Care Provider] -
[2017-11-02] MEDS ORDERED: Oseltamivir Phosphate 30 MG CAPSULE PO SCH (11:30)
--- NOTE | 2017-11-02 11:42 | Discharge Summary ---
Date of Encounter: 11/02/17 Time of Encounter: 11:40 - Discharge Diagnosis (1) Influenza A Priority: Primary Status: Acute (2) NSTEMI (non-ST elevated myocardial infarction) Priority: Primary Status: Acute (3) Paroxysmal A-fib Priority: Secondary Status: Acute (4) ESRD (end stage renal disease) on dialysis Priority: Secondary Status: Chronic (5) Hypertension Priority: Secondary Status: Chronic Qualifiers: Hypertension type: unspecified Qualified Code(s): I10 - Essential (primary ) hypertension (6) Hypertensive urgency Priority: Primary Status: Resolved - Discharge Medications Home Medications: Clopidogrel [Plavix] 75 mg PO DAILY 03/17/17 [History] Furosemide [Lasix] 40 mg PO BID 03/17/17 [History] Gabapentin [Neurontin] 100 mg PO TID 03/17/17 [History] Hydralazine HCl 50 mg PO BID PRN 03/17/17 [History] Insulin Glargine,Hum.rec.anlog [Lantus Solostar] 18 - 20 unit SQ BID 03/17/17 [ History] Insulin LISPRO [Humalog] 4 - 16 unit SQ TIDWM 03/17/17 [History] Metoprolol XL (24 HR) Succ [Toprol Xl] 100 mg PO DAILY #30 tab.er.24h 03/22/17 [ Rx] Isosorbide MONOnitrate [Isosorbide Mononitrate ER] 120 mg PO DAILY 06/20/17 [ History] Quinine Sulfate [Qualaquin] 324 mg PO TID 06/20/17 [History] Aspirin 81 mg PO DAILY #30 tab.chew 06/21/17 [Rx] Allopurinol [Zyloprim 100 MG] 200 mg PO DAILY 07/24/17 [History] Calcium Acetate [Phos-LO] 1,334 mg PO TIDWM 07/24/17 [History] Amiodarone [Cordarone] 200 mg PO DAILY #30 tablet 09/22/17 [Rx] Albuterol Sulfate [Albuterol Inhaler] 2 puff IH Q6HR PRN 10/26/17 [History] Citalopram Hydrobromide [Citalopram HBr] 10 mg PO DAILY 10/26/17 [History] Warfarin [Coumadin] 7.5 mg PO 1800 10/26/17 [History] amLODIPine [Norvasc] 5 mg PO DAILY #30 tablet 10/28/17 [Rx] Allergies/Adverse Reactions: 3 Allergy/AdvReac Type Severity Reaction Status Date / Time bacitracin Allergy Rash Verified 07/24/17 10:16 [From Neosporin ([id number])] Neomycin Allergy Rash Verified 07/24/17 10:16 [From Neosporin (ztf-[id number]-hkgwh)] polymyxin B Allergy Rash Verified 07/24/17 10:16 [From Neosporin (tvj-igq-gospv)] atorvastatin AdvReac Cramping Verified 07/24/17 10:16 of the Muscles plastic Allergy Rash Uncoded 07/24/17 10:16 tape Allergy Rash Uncoded 07/24/17 10:16 Procedures/tests Complete & Pending: Procedures Performed prior 72 hours Category Date Time Status EV limited echocardiogram Routine Y 11/02/17 08:27 Ordered Date of admission: 11/01/17 18:48 Primary care physician: Eleazar Calhoun MD Consults: 11/01/17 21:19 Consult to Pastoral Services [CONS] Routine Comment: 11/01/17 23:05 Consult to Nephrology [CONS] Routine Consulting Provider: [facility] RAISA Reason for Consult: ESRD with HD presented with Flu positive Call Completed: Yes 11/02/17 09:45 Consult to Dialysis [CONS] ONCE - Patient Status Disposition: Home, Self-Care Condition: Fair Overall status at discharge: patient is progressing back to baseline - Discharge Instructions Follow Up With: Eleazar Calhoun MD [Primary Care Provider] - - Diet and Activity Activity: increase activity as tolerated Diet: diabetic diet, low salt diet Hospital course: Ms. Madden is a 67 year old female - Time Spent with Patient Total time spent providing and/or coordinating discharge services: - Constitutional Vitals: Temp Pulse Resp BP Pulse Ox 99.0 F 76 18 171/91 97 11/02/17 07:45 11/02/17 07:45 11/02/17 07:45 11/02/17 07:45 11/02/17 07:45 General appearance: Present: A&O X 3, pleasant, no acute distress, answers questions appropriately Exam: GEN: NAD CVS: RRR. S1, S2, No m/r/g RESP: Macrocytosis ABD: Soft, NT, ND, +BS EXT: No edema. 2+ DP. No rashes NEURO: Nonfocal
--- NOTE | 2017-11-02 12:07 | Nephrology Consult Note ---
Date of Encounter: 11/02/17 Time of Encounter: 11:35 Assessment and Plan (1) ESRD (end stage renal disease) on dialysis Current Visit: No Status: Chronic Flu A on Tamiflu. Elevating Troponins, Cardiology on board. ESRD- HD today keeping MWF schedule. Orders given. History of Present Illness - Reason for Consult end stage renal disease - History of Present Illness Ms. Madden is a 67 year old female with ESRD who dialyzes at [facility] on MWF , last dialysis on Sunday. Other PMH-atrial fibrillation, CHF, coronary artery disease, diabetes, dialysis, hypertension, myocardial infarction, renal disease, angioplasty/stent, cholecystectomy, hysterectomy, anxiety. Ms. Madden presented to ER yesterday from PCP office, temp 100.5 with concern for pneumonia with complaint of "not feeling well at all." Recent hospital stay for tachycardia and elevated BP. Positive Flu A. Started on renal dosing Tamilflu. Trop 0.07 with increase today 1.46. Cardiology on board. Seen on HD today, states continues to not feel well. Past Med Surg Social Fam HX - Past Medical History Medical history: atrial fibrillation, CHF, coronary artery disease, diabetes, dialysis, hypertension, myocardial infarction, renal disease Psychiatric history: anxiety - Past Surgical History Surgical History: angioplasty/stent, cholecystectomy, hysterectomy, other - Social History Smoking Status: Never smoker Smokeless Tobacco Status: No Alcohol use: none Drug use: none - Family History Father Family Member Ethnicity: Non- Living Status: Hx Family Cardiac Disorders: Yes (IN) Mother Family Member Ethnicity: Non- Living Status: Hx Family Cardiac Disorders: Yes (HD) Hx Family Respiratory Disorders: No Hx Family Cancer: No Hx Family GI Disorders: No Hx Family Endocrine Disorder: Yes (DM) Hx Family Neuromuscular Disorders: No Hx Family Neurologic Disorders: No Hx Family HEENT Disorders: No Hx Family Autoimmune Disorders: No Brother Family Member Ethnicity: Non- Living Status: Still Living Hx Family Cardiac Disorders: Yes Hx Family Respiratory Disorders: Yes (sleep apnea) Hx Family Cancer: No Hx Family GI Disorders: No Hx Family Endocrine Disorder: Yes (DM) Hx Family Neuromuscular Disorders: No Hx Family Neurologic Disorders: No Hx Family HEENT Disorders: No Hx Family Autoimmune Disorders: No Sister Family Member Ethnicity: Non- Living Status: Hx Family Cardiac Disorders: Yes (HTN) Hx Family Respiratory Disorders: No Hx Family Cancer: Yes (Ovarian) Hx Family GI Disorders: No Hx Family Endocrine Disorder: Yes (DM) Hx Family Neuromuscular Disorders: No Hx Family Neurologic Disorders: No Hx Family HEENT Disorders: No Hx Family Autoimmune Disorders: No Medications and Allergies Clopidogrel [Plavix] 75 mg PO DAILY 03/17/17 [History] Furosemide [Lasix] 40 mg PO BID 03/17/17 [History] Gabapentin [Neurontin] 100 mg PO TID 03/17/17 [History] Insulin Glargine,Hum.rec.anlog [Lantus Solostar] 18 - 20 unit SQ BID 03/17/17 [ History] Insulin LISPRO [Humalog] 4 - 16 unit SQ TIDWM 03/17/17 [History] Metoprolol XL (24 HR) Succ [Toprol Xl] 100 mg PO DAILY #30 tab.er.24h 03/22/17 [ Rx] Isosorbide MONOnitrate [Isosorbide Mononitrate ER] 120 mg PO DAILY 06/20/17 [ History] Quinine Sulfate [Qualaquin] 324 mg PO TID 06/20/17 [History] Aspirin 81 mg PO DAILY #30 tab.chew 06/21/17 [Rx] Allopurinol [Zyloprim 100 MG] 200 mg PO DAILY 07/24/17 [History] Calcium Acetate [Phos-LO] 1,334 mg PO TIDWM 07/24/17 [History] Amiodarone [Cordarone] 200 mg PO DAILY #30 tablet 09/22/17 [Rx] Albuterol Sulfate [Albuterol Inhaler] 2 puff IH Q6HR PRN 10/26/17 [History] Citalopram Hydrobromide [Citalopram HBr] 10 mg PO DAILY 10/26/17 [History] Warfarin [Coumadin] 7.5 mg PO 1800 10/26/17 [History] amLODIPine [Norvasc] 5 mg PO DAILY #30 tablet 10/28/17 [Rx] Hydralazine HCl 50 mg PO BID #60 tablet 11/02/17 [Rx] Oseltamivir Phosphate [Tamiflu] 30 mg PO BID #6 capsule 11/02/17 [Rx] 3 Allergy/AdvReac Type Severity Reaction Status Date / Time bacitracin Allergy Rash Verified 07/24/17 10:16 [From Neosporin ([id number])] Neomycin Allergy Rash Verified 07/24/17 10:16 [From Neosporin ([id number])] polymyxin B Allergy Rash Verified 07/24/17 10:16 [From Neosporin ([id number])] atorvastatin AdvReac Cramping Verified 07/24/17 10:16 of the Muscles plastic Allergy Rash Uncoded 07/24/17 10:16 tape Allergy Rash Uncoded 07/24/17 10:16 Review of Systems All Systems: reviewed and no additional remarkable complaints except as stated Exam - Vital Signs Vital signs: Initial Vital Signs Temp Pulse Resp BP Pulse Ox 100.3 F H 79 18 135/75 95 11/01/17 12:51 11/01/17 12:51 11/01/17 12:51 11/01/17 12:51 11/01/17 12:51 Vital Signs - Last 8 Hours Temp Pulse Resp BP Pulse Ox 11/02/17 07:45 99.0 F 76 18 171/91 97 11/02/17 07:28 99.0 F 76 18 171/91 97 Intake and Output 11/01/17 11/02/17 11/02/17 23:59 07:59 15:59 Intake Total 20 / 320 360 / 360 Balance 20 / 320 360 / 360 Intake: IV Fluids 20 / 20 Zosyn 3.375 GM In Water for inj 20 / 20 . (sterile) 20 ML @ 400 mls/hr IVP ONCE ONE Rx#:[id number] Oral 0 / 0 360 / 360 Other: Meal Breakfast Percent of Meal Consumed 100% Weight 92.079 kg Blood Glucose* 98 Patient Weight 11/02/17 23:59 Weight 92.079 kg - General Appearance General appearance: well-developed, well-nourished, appears started age EENT: mucous membranes moist Neck: no JVD Respiratory: clear Cardiology: no edema, regular rate, regular rhythm Gastrointestinal: normoactive bowel sounds, no tenderness Integumentary: warm and dry Neurologic: alert and oriented x3 Results - Lab Results 11/02/17 04:59 11/02/17 04:59 Most recent lab results Calcium 8.1 mg/dL (8.6-10.3) L 11/02/17 04:59 Phosphorus 8.5 mg/dL (2.7-4.5) H 11/02/17 04:59 Magnesium 2.1 mg/dL (1.6-2.6) 11/02/17 04:59 Consult Discharge Plan - Plan Referrals: Eleazar Calhoun MD [Primary Care Provider] - Prescriptions: Hydralazine HCl 50 mg PO BID #60 tablet Oseltamivir Phosphate [Tamiflu] 30 mg PO BID #6 capsule
[2017-11-02] MEDS ORDERED: Baclofen 10 MG TABLET PO ONE (13:46)
--- NOTE | 2017-11-02 14:43 | Internal Med Progress Note ---
Date of Encounter: 11/02/17 Time of Encounter: 14:41 - Assessment and plan (1) Influenza A Current Visit: Yes Status: Acute Assessment and plan: Continue Tamiflu. (2) NSTEMI (non-ST elevated myocardial infarction) Current Visit: Yes Status: Acute Assessment and plan: Troponins are elevated continue to rise. No chest pain. Cardiology is following. They plan on repeating troponin level in the morning with further recommendations based on that level. Echo is pending. (3) Paroxysmal A-fib Current Visit: No Status: Acute Assessment and plan: Continue metoprolol and warfarin. 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 Dialysis per them. (5) Hypertension Current Visit: No Status: Chronic Assessment and plan: Still uncontrolled. Hydralazine is ordered now scheduled. Apparently she was taking it when necessary at home. Also on metoprolol 100 mg by mouth daily. Also on Norvasc 5 mg. We will see what her blood pressures after dialysis and make adjustment as needed. Qualifiers: Hypertension type: unspecified Qualified Code(s): I10 - Essential (primary ) hypertension (6) Hypertensive urgency Current Visit: No Status: Resolved Assessment and plan: Improving. Plan as above. (7) Chronic diastolic (congestive) heart failure Current Visit: Yes Status: Acute Assessment and plan: Euvolemic. Continue Lasix. (8) DVT prophylaxis Current Visit: Yes Status: Acute Assessment and plan: Coumadin - Subjective Interval history: Patient was seen and examined. She was in dialysis. Feels okay other than some leg cramps. She has been afebrile. Cardiology is seeing the patient for elevated troponins which continues to rise although she has no chest pain. Her blood pressure still uncontrolled. She is aware and no other patient for her noncompliance. The patient was admitted initially with shortness of breath and found to have flu. She is also noted to have elevated troponins which cardiology is consulted. - Constitutional Vitals: Temp Pulse Resp BP Pulse Ox 97.8 F 72 18 118/58 97 11/02/17 14:33 11/02/17 11:00 11/02/17 14:33 11/02/17 14:33 11/02/17 11:00 General appearance: Present: A&O X 3, pleasant, no acute distress, answers questions appropriately Exam: GEN: NAD CVS: RRR. S1, S2, No m/r/g RESP: Macrocytosis ABD: Soft, NT, ND, +BS EXT: No edema. 2+ DP. No rashes NEURO: Nonfocal Internal Medicine: Result - Labs CBC & Chem 7: 11/02/17 04:59 11/02/17 04:59 Labs: Short CBC 11/02/17 Range/Units 04:59 WBC 3.2 L (4.3-11.1) K/mcL Hgb 11.0 L (11.5-15.4) g/dL Hct 35.4 (35.3-44.9) % Plt Count 162 (140-400) K/mcL Neutrophils # 1.7 (1.6-8.9) K/mcL BMP 11/02/17 04:59 Sodium 135 L Potassium 3.7 Chloride 96 L Carbon Dioxide 22 L BUN 54 H Creatinine 7.44 H Glucose 132 H Calcium 8.1 L Cardiac Enzymes 11/01/17 11/02/17 11/02/17 Range/Units 23:17 04:59 10:58 Troponin I 0.07 H* 0.24 H* 1.46 H* (< 0.04) ng/mL Liver Function 11/02/17 Range/Units 04:59 Total Bilirubin 0.4 (0.3-1.0) mg/dL AST 38 (13-39) Units/L ALT 20 (7-52) Units/L Alkaline Phosphatase 58 (34-104) Units/L Albumin 3.7 (3.5-5.7) g/dL - ABG Interpretation ABG results: PT/INR, D-dimer PT 24.3 Seconds (9.4-12.1) H 11/02/17 04:59 Consult Discharge Plan - Plan Referrals: Eleazar Calhoun MD [Primary Care Provider] - 11/12/17 10:30 am (Please follow up as schedule...) Prescriptions: Hydralazine HCl 50 mg PO BID #60 tablet Oseltamivir Phosphate [Tamiflu] 30 mg PO BID #6 capsule
[2017-11-02] MEDS ORDERED: Perflutren Lipid Microsphere 1.3 ML in 0.9 % Sodium Chloride 8.7 ML IVP ONE (14:49)
[2017-11-02] MEDS ORDERED: Perflutren Lipid Microsphere 2 ML VIAL ONE (14:53)
[2017-11-02] MEDS: amLODIPine 5 MG TABLET PO SCH (16:25)
[2017-11-02] MEDS: Metoprolol XL (24 HR) Succ 50 MG TAB.ER.24H PO SCH (16:25)
[2017-11-02] MEDS: *HR* Amiodarone 200 MG TABLET PO SCH (16:26)
[2017-11-02] MEDS: Isosorbide MONOnitrate (24 HR) 60 MG TAB.ER.24H PO SCH (16:26)
[2017-11-02] MEDS: Oseltamivir Phosphate 30 MG CAPSULE PO SCH (16:26)
[2017-11-02] MEDS ORDERED: *HR* Warfarin 7.5 MG TABLET PO SCH (18:00)
[2017-11-02] MEDS ORDERED: Warfarin perPT PO PRN (18:00)
[2017-11-02] MEDS ORDERED: *HR* Promethazine 25 MG/ML VIAL IVP PRN (20:04)
[2017-11-02] MEDS: Pantoprazole 40 MG VIAL IVP SCH (20:47)
[2017-11-02] MEDS ORDERED: hydrALAZINE 25 MG TABLET PO SCH (21:00)
[2017-11-03 05:20] LABS: Basophils % 0.5 %; Hematocrit 36.2 % (35.3-44.9); Hemoglobin 11.7 g/dL (11.5-15.4); Immature Granulocytes % 1.3 % (0-4); Lymphocytes # 1.2 K/mcL (0.6-4.6); Lymphocytes % 31.1 %; Mean Corpuscular HGB Conc 32.3 g/dL (31.6-35.5); Mean Corpuscular Hemoglobin 31.5 pg (28.0-33.3); Mean Corpuscular Volume 97.3 fL (83.0-100.0); Mean Platelet Volume 10.4 fL (9.4-12.4); Monocytes # 0.4 K/mcL (0.0-1.3); Monocytes % 10.3 %; Neutrophils # 2.2 K/mcL (1.6-8.9); Nucleated Red Blood Cells 0.5 /100 WBC (0); Platelet Count 179 K/mcL (140-400); Red Blood Count 3.72 M/mcL (3.82-4.97); Segmented Neutrophils % 56.8 %
[2017-11-03 05:29] LABS: INR 2.2; Prothrombin Time 23.8 Seconds (9.4-12.1)
[2017-11-03 05:35] LABS: Platelet Estimate Normal (Normal)
[2017-11-03 05:56] LABS: Calcium 8.7 mg/dL (8.6-10.3)
[2017-11-03] MEDS: Insulin LISPRO 300 UNITS/3 ML VIAL SQ SCH ×4 (08:15→21:29)
--- NOTE | 2017-11-03 08:30 | Nephrology Progress Note ---
Date of Encounter: 11/03/17 Time of Encounter: 08:20 - Assessment and Plan (1) ESRD (end stage renal disease) on dialysis Current Visit: No Status: Chronic Flu A on Tamiflu. Elevating Troponins, Cardiology on board. ESRD- No HD today keeping MWF schedule. Subjective Interval history: Sitting on edge of bed. Eating breakfast. States breathing easier. Denies chest pain. Objective - Vital Signs Vital signs: Vital Signs Temp Pulse Resp BP Pulse Ox 11/03/17 06:48 97.6 F 54 17 94/57 97 11/03/17 04:37 97.6 F 58 16 111/73 98 11/02/17 23:32 97.6 F 62 16 94/59 96 11/02/17 20:52 97.9 F 72 17 94/60 100 11/02/17 16:15 99.2 F 81 16 145/76 96 11/02/17 14:33 97.8 F 18 118/58 11/02/17 13:10 134/70 11/02/17 12:55 152/86 11/02/17 12:40 123/74 11/02/17 12:25 135/77 11/02/17 12:10 152/79 11/02/17 11:55 145/83 11/02/17 11:40 168/81 11/02/17 11:25 158/76 11/02/17 11:10 166/81 11/02/17 11:00 98.4 F 72 16 155/76 97 11/02/17 10:55 164/78 11/02/17 10:40 166/77 11/02/17 10:25 171/75 11/02/17 10:10 98.3 F 18 167/70 Intake and Output 11/02/17 11/03/17 11/03/17 23:59 07:59 15:59 Intake Total 0 / 0 Balance 0 / 0 Intake: Oral 0 / 0 Other: Stool Size Large # Voids 1 # Bowel Movements 1 Weight 90.4 kg Blood Glucose* 158 87 Patient Weight 11/03/17 23:59 Weight 90.4 kg - General Appearance General appearance: Present: well-developed, well-nourished, appears started age EENT: Present: mucous membranes moist Neck: Present: no JVD Respiratory: Present: rhonchi Cardiology: Present: no edema, regular rate, regular rhythm Gastrointestinal: Present: normoactive bowel sounds, no tenderness Integumentary: Present: warm and dry Neurologic: Present: alert and oriented x3 Psychiatric: Present: mood/affect appropriate, cooperative - Lab 11/03/17 04:33 11/03/17 04:33 Most recent lab results Calcium 8.7 mg/dL (8.6-10.3) 11/03/17 04:33 Phosphorus 8.5 mg/dL (2.7-4.5) H 11/02/17 04:59 Magnesium 2.1 mg/dL (1.6-2.6) 11/02/17 04:59 Consult Discharge Plan - Plan Referrals: Eleazar Calhoun MD [Primary Care Provider] - 11/12/17 10:30 am (Please follow up as schedule...) Prescriptions: Hydralazine HCl 50 mg PO BID #60 tablet Oseltamivir Phosphate [Tamiflu] 30 mg PO BID #6 capsule
[2017-11-03] MEDS: Gabapentin 100 MG CAPSULE PO SCH ×3 (08:59→21:33)
[2017-11-03] MEDS: Insulin DETEMIR 100 UNIT/ML X5UNITS SQ SCH ×2 (08:59→21:33)
[2017-11-03] MEDS: Pantoprazole 40 MG VIAL IVP SCH (08:59)
[2017-11-03] MEDS: Isosorbide MONOnitrate (24 HR) 60 MG TAB.ER.24H PO SCH (09:00)
[2017-11-03] MEDS: Calcium Acetate 667 MG CAPSULE PO SCH ×3 (09:00→18:02)
[2017-11-03] MEDS: *HR* Amiodarone 200 MG TABLET PO SCH (09:00)
[2017-11-03] MEDS: Aspirin 81 MG TAB.CHEW PO SCH (09:01)
[2017-11-03] MEDS: amLODIPine 5 MG TABLET PO SCH (09:19)
[2017-11-03] MEDS: hydrALAZINE 25 MG TABLET PO SCH ×2 (09:19→21:30)
[2017-11-03] MEDS: Metoprolol XL (24 HR) Succ 50 MG TAB.ER.24H PO SCH (09:19)
[2017-11-03] MEDS: Furosemide 40 MG TABLET PO SCH ×2 (09:19→18:03)
--- NOTE | 2017-11-03 09:58 | Internal Med Progress Note ---
Date of Encounter: 11/03/17 Time of Encounter: 09:56 - Assessment and plan (1) Influenza A Current Visit: Yes Status: Acute Assessment and plan: Continue Tamiflu. (2) NSTEMI (non-ST elevated myocardial infarction) Current Visit: Yes Status: Acute Assessment and plan: Troponins are elevated continue to rise. No chest pain. Cardiology is following. Morning troponin is actually higher than previous. Echo results noted. We will let cardiology know (3) Paroxysmal A-fib Current Visit: No Status: Acute Assessment and plan: Continue metoprolol and warfarin. (4) ESRD (end stage renal disease) on dialysis Current Visit: No Status: Chronic Assessment and plan: Agricultural Scientist following. Dialysis per them. (5) Hypertension Current Visit: No Status: Chronic Assessment and plan: Hold antihypertensives. Blood pressure is actually on the lower side.. Qualifiers: Hypertension type: unspecified Qualified Code(s): I10 - Essential (primary ) hypertension (6) Hypertensive urgency Current Visit: No Status: Resolved Assessment and plan: Improving. Plan as above. (7) Chronic diastolic (congestive) heart failure Current Visit: Yes Status: Acute Assessment and plan: Euvolemic. Continue Lasix. (8) DVT prophylaxis Current Visit: Yes Status: Acute Assessment and plan: Coumadin - Subjective Interval history: Patient was seen and examined. Afebrile. Cardiology is seeing the patient for elevated troponins which continues to rise although she has no chest pain. Her blood pressure still uncontrolled. She is aware and no other patient for her noncompliance. The patient was admitted initially with shortness of breath and found to have flu. She is also noted to have elevated troponins which cardiology is consulted. - Constitutional Vitals: Temp Pulse Resp BP Pulse Ox 97.6 F 54 17 94/57 97 11/03/17 06:48 11/03/17 06:48 11/03/17 06:48 11/03/17 06:48 11/03/17 06:48 General appearance: Present: A&O X 3, pleasant, no acute distress, answers questions appropriately Exam: GEN: NAD CVS: RRR. S1, S2, No m/r/g RESP: Macrocytosis ABD: Soft, NT, ND, +BS EXT: No edema. 2+ DP. No rashes NEURO: Nonfocal Internal Medicine: Result - Labs CBC & Chem 7: 11/03/17 04:33 11/03/17 04:33 Labs: Short CBC 11/03/17 Range/Units 04:33 WBC 3.9 L (4.3-11.1) K/mcL Hgb 11.7 (11.5-15.4) g/dL Hct 36.2 (35.3-44.9) % Plt Count 179 (140-400) K/mcL Neutrophils # 2.2 (1.6-8.9) K/mcL BMP 11/03/17 04:33 Sodium 136 Potassium 4.0 Chloride 95 L Carbon Dioxide 23 BUN 40 H Creatinine 6.47 H Glucose 112 H Calcium 8.7 Cardiac Enzymes 11/02/17 11/03/17 Range/Units 10:58 04:33 Troponin I 1.46 H* 3.73 H* (< 0.04) ng/mL - ABG Interpretation ABG results: PT/INR, D-dimer PT 23.8 Seconds (9.4-12.1) H 11/03/17 04:33 - Impressions Impressions Echocardiogram Limited Views 11/02/17 08:27 Impressions: LVEF 50-55%. Not all LV wall segments are well visualized even with use of Definity. RV is dilated. Function appears normal in limited views provided. Subcostal imaging not available. Ascending aorta not well visualized. Left Ventricular Wall Motion: Rest Echo Findings The apex, apical inferior, mid inferior, basal inferior, apical anterior, mid anterior, basal anterior and mid inferior lateral cash were not visualized. All other wall segments showed normal motion. Findings: Study Quality * Technically adequate exam. ECG Findings * Probably NSR. Left Ventricle * LVEF 50-55%. * Moderate concentric left ventricular hypertrophy. * Definity was used. Aorta * Not well visualized. Right Ventricle * RV is dilated. Function appears normal in limited views provided. Subcostal imaging not available. Consult Discharge Plan - Plan Referrals: Eleazar Calhoun MD [Primary Care Provider] - 11/12/17 10:30 am (Please follow up as schedule...) Prescriptions: Hydralazine HCl 50 mg PO BID #60 tablet Oseltamivir Phosphate [Tamiflu] 30 mg PO BID #6 capsule
--- NOTE | 2017-11-03 11:27 | Cardiology Progress Note ---
Date of Encounter: 11/03/17 Time of Encounter: 11:24 Assessment and Plan (1) Influenza A Current Visit: Yes Status: Acute Patient presents with complaints of general malaise, cough. Influenza A positive. Your medical management. (2) Troponin level elevated Current Visit: No Status: Acute Troponin elevation suggestive of a NSTEMI. Myocarditis also possible given influenzae. No chest pain reported. LVEF preserved. [facility] 06/2017 - PTCA to CX. Repeat ECG pending. Patient continues to deny symptoms. Recommend continue supportive care for influenzae for now given lack of cardiac symptoms, preserved LVEF. Discussed the R/B/A to a [facility]. She would be agreeable. Also, Coumadin will need to be held in preparation for the procedure. Start heparin drip when INR < 2. Continue aspirin/plavix/bb/indur. Statin allergy noted. (3) CAD in [place] artery Current Visit: No Status: Acute [place] CAD, recent LHC with PTCA to circumflex artery. LV EF preserved. Recommend continue aspirin/Plavix, beta rancho, and Imdur therapy. Patient reports statin allergy. Seen comments under NSTEMI. (4) Paroxysmal A-fib Current Visit: No Status: Acute Paroxysmal atrial fibrillation. Coumadin being held for LHC. Bridge with heparin when INR <2. Discussion w patient/family: The assessment and plan as outlined above was discussed with the patient and/or family members who expressed understanding and agreement. All questions were answered. Thank you for involving us in the care of your patient. Please call with any questions. Subjective Principal diagnosis: NSTEMI Interval history: Patient reports general weakness and fatigue. She denies chest pain or discomfort. Reports breathing is improved. Noted increasing troponin. Repeat ECG pending. [facility] 06/2017: Left main normal. LAD mid patent stent, mid 30% stenosis. D1 small vessel, distal 50-60% stenosis. Circumflex mid 70% stenosis part sees PTCA performed, final stenosis 20-30%). RCA proximal patent stent with 20% ISR. RPDA mild disease. EF 50%. Limited TTE 11/02:LVEF 50-55%. RV is dilated, grossly normal function. Objective General: Conversant, No Apparent Distress HEENT: Atraumatic, Normocephaly, Mucus Membranes Moist Neck: No JVD, Normal carotid pulses Cardiac: Reg Rate and Rhythm, Normal S1 and S2, No Murmur Lungs: Normal Breath Sounds, Other (Shallow, scattered rhonchi ) Neuro: Alert and responsive, No focal deficits noted Abdomen: Soft, Non-Tender Skin: No rashes noted on visualized skin Musculoskeletal: No Chest Wall Tenderness Extremities: No Clubbing, No Cyanosis, No Edema Results 11/03/17 04:33 11/03/17 04:33 Lab Results 11/02/17 11/03/17 11/03/17 10:58 04:33 04:33 WBC 3.9 L Hgb 11.7 Hct 36.2 Plt Count 179 INR Sodium Potassium Chloride Carbon Dioxide BUN Creatinine Glucose Calcium Troponin I 1.46 H* 3.73 H* 11/03/17 11/03/17 04:33 04:33 WBC Hgb Hct Plt Count INR 2.2 Sodium 136 Potassium 4.0 Chloride 95 L Carbon Dioxide 23 BUN 40 H Creatinine 6.47 H Glucose 112 H Calcium 8.7 Troponin I - Imaging and Cardiology Echo: report reviewed Cardiac cath: report reviewed Consult Discharge Plan - Plan Referrals: Eleazar Calhoun MD [Primary Care Provider] - 11/12/17 10:30 am (Please follow up as schedule...) Prescriptions: Hydralazine HCl 50 mg PO BID #60 tablet Oseltamivir Phosphate [Tamiflu] 30 mg PO BID #6 capsule
[2017-11-03] MEDS ORDERED: Warfarin perPT PO PRN (11:51)
[2017-11-03] MEDS: Oseltamivir Phosphate 30 MG CAPSULE PO SCH (18:03)
[2017-11-04 06:22] LABS: Basophils % 0.5 %; Eosinophils % 0.3 %; Hemoglobin 11.1 g/dL (11.5-15.4); Immature Granulocytes % 0.7 % (0-4); Lymphocytes # 1.8 K/mcL (0.6-4.6); Lymphocytes % 30.3 %; Mean Corpuscular HGB Conc 31.7 g/dL (31.6-35.5); Mean Corpuscular Hemoglobin 31.3 pg (28.0-33.3); Mean Corpuscular Volume 98.6 fL (83.0-100.0); Mean Platelet Volume 10.3 fL (9.4-12.4); Monocytes # 0.4 K/mcL (0.0-1.3); Neutrophils # 3.7 K/mcL (1.6-8.9); Nucleated Red Blood Cells 0.3 /100 WBC (0); Platelet Count 180 K/mcL (140-400); Red Blood Count 3.55 M/mcL (3.82-4.97); Red Cell Distribution Width 13.8 % (11.5-14.5); Segmented Neutrophils % 62.2 %
[2017-11-04 06:26] LABS: INR 2.3; Prothrombin Time 24.9 Seconds (9.4-12.1)
[2017-11-04 06:43] LABS: Calcium 8.2 mg/dL (8.6-10.3)
[2017-11-04] MEDS: Insulin LISPRO 300 UNITS/3 ML VIAL SQ SCH ×4 (08:26→20:54)
--- NOTE | 2017-11-04 08:36 | Nephrology Progress Note ---
Date of Encounter: 11/04/17 Time of Encounter: 08:20 - Assessment and Plan (1) ESRD (end stage renal disease) on dialysis Current Visit: No Status: Chronic Flu A on Tamiflu. Elevating Troponins, Cardiology on board. ESRD- No HD today keeping MWF schedule. Subjective Principal diagnosis: NSTEMI Interval history: Sitting on edge of bed. Eating breakfast. States breathing easier. Denies chest pain. Objective - Vital Signs Vital signs: Vital Signs Temp Pulse Resp BP Pulse Ox 11/04/17 07:24 97.4 F L 60 17 126/74 97 11/04/17 03:33 97.7 F 56 17 124/73 96 11/03/17 23:31 98.4 F 60 17 105/62 90 11/03/17 19:17 98.4 F 63 17 94/56 100 11/03/17 15:55 98.0 F 60 17 100/50 93 11/03/17 13:26 84/45 Intake and Output 11/03/17 11/04/17 11/04/17 23:59 07:59 15:59 Intake Total 0 / 0 Balance 0 / 0 Intake: Oral 0 / 0 Other: Weight 90.5 kg Blood Glucose* 107 77 Patient Weight 11/04/17 23:59 Weight 90.5 kg - General Appearance General appearance: Present: well-developed, well-nourished, appears started age EENT: Present: mucous membranes moist Neck: Present: no JVD Respiratory: Present: rhonchi Cardiology: Present: no edema, regular rate, regular rhythm Gastrointestinal: Present: normoactive bowel sounds, no tenderness Integumentary: Present: warm and dry Neurologic: Present: alert and oriented x3 - Lab 11/04/17 05:25 11/04/17 05:25 Most recent lab results Calcium 8.2 mg/dL (8.6-10.3) L 11/04/17 05:25 Phosphorus 8.5 mg/dL (2.7-4.5) H 11/02/17 04:59 Magnesium 2.1 mg/dL (1.6-2.6) 11/02/17 04:59 Consult Discharge Plan - Plan Referrals: Eleazar Calhoun MD [Primary Care Provider] - 11/12/17 10:30 am (Please follow up as schedule...)
[2017-11-04] MEDS: Furosemide 40 MG TABLET PO SCH ×2 (09:46→15:31)
[2017-11-04] MEDS: Pantoprazole 40 MG VIAL IVP SCH (09:46)
[2017-11-04] MEDS: Isosorbide MONOnitrate (24 HR) 60 MG TAB.ER.24H PO SCH (09:46)
[2017-11-04] MEDS: *HR* Amiodarone 200 MG TABLET PO SCH (09:46)
[2017-11-04] MEDS: Gabapentin 100 MG CAPSULE PO SCH ×3 (09:47→20:57)
[2017-11-04] MEDS: Metoprolol XL (24 HR) Succ 50 MG TAB.ER.24H PO SCH (09:47)
[2017-11-04] MEDS: Insulin DETEMIR 100 UNIT/ML X5UNITS SQ SCH ×2 (09:47→20:57)
[2017-11-04] MEDS: Calcium Acetate 667 MG CAPSULE PO SCH ×3 (09:47→18:00)
[2017-11-04] MEDS: Aspirin 81 MG TAB.CHEW PO SCH (09:47)
[2017-11-04] MEDS: hydrALAZINE 25 MG TABLET PO SCH ×2 (09:48→20:54)
[2017-11-04] MEDS: amLODIPine 5 MG TABLET PO SCH (09:48)
--- NOTE | 2017-11-04 10:34 | Cardiology Progress Note ---
Date of Encounter: 11/04/17 Time of Encounter: 08:30 Assessment and Plan (1) Influenza A Current Visit: Yes Status: Acute Per cardiology: -Patient presents with complaints of general malaise, cough. -Influenza A positive. -Management per primary service. (2) Troponin level elevated Current Visit: No Status: Acute Per cardiology: -Troponin elevation suggestive of a NSTEMI. Myocarditis also possible given influenzae. -Denies chest pain. -LVEF preserved. -LHC 06/2017 - PTCA to CX. -Recommend continue supportive care for influenzae for now given lack of cardiac symptoms, preserved LVEF. -Discussed the R/B/A to a [facility]. She would be agreeable. -Also, Coumadin will need to be held in preparation for the procedure. Start heparin drip when INR < 2. -Continue aspirin/plavix/bb/indur. Statin allergy noted. -Will make NPO after midnight for possible LHC in am. -Will repeat labs in am. Hold coumadin. Start heparin drip when INR less than 2. -Will continue to monitor. (3) CAD in [place] artery Current Visit: No Status: Acute Per cardiology: -[place] CAD, recent LHC with PTCA to circumflex artery. -LV EF preserved. -Recommend continue aspirin/Plavix, beta rancho, and Imdur therapy. -Patient reports statin allergy. (4) Paroxysmal A-fib Current Visit: No Status: Acute Per cardiology: -Paroxysmal atrial fibrillation. -Coumadin being held for LHC. -Bridge with heparin when INR <2. -Currently SR, HR controlled. -Continue telemetry. -Start heparin drip when INR less than 2. Discussion w patient/family: The assessment and plan as outlined above was discussed with the patient who expressed understanding and agreement. All questions were answered. Thank you for involving us in the care of your patient. Please call with any questions. Discussed and reviewed with . Subjective Principal diagnosis: NSTEMI Interval history: Patient denies chest pain. Complains of not sleeping well last night Objective Vital Signs, Last 4 Hours Temp Pulse Resp BP Pulse Ox 11/04/17 07:24 97.4 F L 60 17 126/74 97 General: Conversant, No Apparent Distress HEENT: Atraumatic, Normocephaly, Mucus Membranes Moist Neck: No JVD, Normal carotid pulses Cardiac: Reg Rate and Rhythm, Normal S1 and S2, No Murmur Lungs: Normal Breath Sounds, No Wheeze, Rales, Rhonchi Neuro: Alert and responsive, No focal deficits noted Abdomen: Soft, Non-Tender Skin: No rashes noted on visualized skin Musculoskeletal: No Chest Wall Tenderness Extremities: No Clubbing, No Cyanosis, No Edema, Normal Pulses Results 11/04/17 05:25 11/04/17 05:25 Lab Results Current Medications Albuterol Sulfate (Albuterol Inhaler) 2 puff IH [id number] PRN PRN Reason: Shortness Of Breath Stop: 05/03/18 23:03 Allopurinol (Zyloprim) 200 mg PO DAILY [facility] Stop: 05/04/18 09:01 Last Admin: 11/04/17 09:46 Dose: 200 mg Amiodarone HCl (Cordarone) 200 mg PO DAILY [facility] Stop: 05/04/18 09:01 Last Admin: 11/04/17 09:46 Dose: 200 mg Amlodipine Besylate (Norvasc) 5 mg PO DAILY [facility] PRN Reason: Protocol Stop: 05/04/18 09:01 Last Admin: 11/04/17 09:48 Dose: Not Given Aspirin (Aspirin) 81 mg PO DAILY [facility] Stop: 05/04/18 09:01 Last Admin: 11/04/17 09:47 Dose: 81 mg Calcium Acetate (Phos-Lo) 1,334 mg PO TIDWM [facility] Stop: 05/04/18 08:01 Last Admin: 11/04/17 09:47 Dose: 1,334 mg Citalopram Hydrobromide (Celexa) 10 mg PO DAILY [facility] Stop: 05/04/18 09:01 Last Admin: 11/04/17 09:47 Dose: 10 mg Clopidogrel Bisulfate (Plavix) 75 mg PO DAILY [facility] Stop: 05/04/18 09:01 Last Admin: 11/04/17 09:47 Dose: 75 mg Dextrose/Water (Dextrose 50% (Syg)) 25 ml IVP AD PRN PRN Reason: Hypoglycemia Stop: 05/04/18 08:17 Furosemide (Lasix) 40 mg PO BIDDIURETIC [facility] Stop: 05/04/18 08:16 Last Admin: 11/04/17 09:46 Dose: 40 mg Gabapentin (Neurontin) 100 mg PO TID [facility] Stop: 05/04/18 09:01 Last Admin: 11/04/17 09:47 Dose: 100 mg Glucagon (Glucagen) 1 mg IM ONCE PRN PRN Reason: Hypoglycemia Stop: 05/04/18 08:17 Glucose (Gluctose) 15 gm PO ONCE PRN PRN Reason: Hypoglycemia Stop: 05/04/18 08:17 Glucose (Gluctose) 30 gm PO ONCE PRN PRN Reason: Hypoglycemia Stop: 05/04/18 08:17 Hydralazine HCl (Hydralazine) 25 mg PO BID [facility] Stop: 05/05/18 07:32 Last Admin: 11/04/17 09:48 Dose: Not Given Dextrose (Dextrose 5%) 1,000 mls @ 100 mls/hr IVC .Q10H PRN PRN Reason: HYPOGLYCEMIA Stop: 05/04/18 08:17 Sodium Chloride (0.9 % Sodium Chloride) 250 mls @ 937.5 mls/hr IVC .Q16M PRN PRN Reason: Hypotension Stop: 05/04/18 09:33 Last Admin: 11/03/17 13:45 Dose: 937.5 mls/hr Insulin Detemir (Levemir) 18 unit SQ BID [facility] Stop: 05/04/18 09:01 Last Admin: 11/04/17 09:47 Dose: 18 unit Insulin Human Lispro (Humalog) 0 units SQ HS [facility] PRN Reason: Protocol Stop: 05/04/18 21:01 Last Admin: 11/03/17 21:29 Dose: Not Given Insulin Human Lispro (Humalog) 0 units SQ TIDAC [facility] PRN Reason: Protocol Stop: 05/04/18 08:31 Last Admin: 11/04/17 08:26 Dose: Not Given Isosorbide Mononitrate (Imdur) 120 mg PO DAILY [facility] Stop: 05/04/18 09:01 Last Admin: 11/04/17 09:46 Dose: 120 mg Metoprolol Succinate (Toprol Xl) 100 mg PO DAILY [facility] Stop: 05/04/18 09:01 Last Admin: 11/04/17 09:47 Dose: 100 mg Naloxone HCl (Narcan) 0.4 mg IVP Q2MIN PRN PRN Reason: SEE COMMENTS Stop: 05/03/18 23:01 Oseltamivir Phosphate (Tamiflu) 30 mg PO DAILY@1600 [facility] Stop: 11/06/17 16:01 Last Admin: 11/03/17 18:03 Dose: 30 mg Pantoprazole Sodium (Protonix) 40 mg IVP DAILY [facility] Stop: 05/04/18 20:16 Last Admin: 11/04/17 09:46 Dose: 40 mg Promethazine HCl (Phenergan) 12.5 mg IVP Q6HR PRN PRN Reason: Nausea And Vomiting Stop: 05/04/18 20:05 Last Admin: 11/02/17 20:47 Dose: 12.5 mg Warfarin Sodium (Coumadin Perpt) 1 each PO DAILY@1800 PRN PRN Reason: ON HOLD FOR NOW Stop: 05/05/18 11:52 Laboratory Tests 11/01/17 11/01/17 11/02/17 13:18 23:17 04:59 Hgb INR Creatinine Troponin I 0.08 H* 0.07 H* 0.24 H* 11/02/17 11/03/17 11/04/17 10:58 04:33 05:25 Hgb INR 2.3 Creatinine Troponin I 1.46 H* 3.73 H* 11/04/17 11/04/17 11/04/17 05:25 05:25 05:25 Hgb 11.1 L INR Creatinine 8.89 H Troponin I 2.16 H* - Imaging and Cardiology Chest Xray: report reviewed Echo: report reviewed Cardiac cath: report reviewed - EKG Interpretation EKG results cardiology: other (Telemetry reviewed with average HR previous 12 hours noted to be 58, SB. PVCs and PACS noted.) Consult Discharge Plan - Plan Referrals: Eleazar Calhoun MD [Primary Care Provider] - 11/12/17 10:30 am (Please follow up as schedule...)
--- NOTE | 2017-11-04 12:57 | Internal Med Progress Note ---
Date of Encounter: 11/04/17 Time of Encounter: 12:54 - Assessment and plan (1) Influenza A Current Visit: Yes Status: Acute Assessment and plan: Continue Tamiflu. To 5 days (2) NSTEMI (non-ST elevated myocardial infarction) Current Visit: Yes Status: Acute Assessment and plan: Troponins are elevated continue to rise. No chest pain. Cardiology is following. Left heart catheterization tomorrow. Echo results noted. (3) Paroxysmal A-fib Current Visit: No Status: Acute Assessment and plan: Continue metoprolol and warfarin. (4) ESRD (end stage renal disease) on dialysis Current Visit: No Status: Chronic Assessment and plan: Funeral [employer] following. Dialysis per them. (5) Hypertension Current Visit: No Status: Chronic Assessment and plan: Hold amlodipine and hydralazine. We can give her beta rancho. Okay to give Lasix. Blood pressure is marginal Qualifiers: Hypertension type: unspecified Qualified Code(s): I10 - Essential (primary ) hypertension (6) Hypertensive urgency Current Visit: No Status: Resolved Assessment and plan: Improving. Plan as above. (7) Chronic diastolic (congestive) heart failure Current Visit: Yes Status: Acute Assessment and plan: Euvolemic. Continue Lasix. (8) DVT prophylaxis Current Visit: Yes Status: Acute Assessment and plan: Coumadin - Subjective Interval history: Patient was seen and examined. Afebrile. Feels well. Leg cramps resolved. Cardiology is seeing the patient for elevated troponins which continues to rise although she has no chest pain. Her blood pressure is better controlled. The patient was admitted initially with shortness of breath and found to have flu. She is also noted to have elevated troponins which cardiology is consulted. - Constitutional Vitals: Temp Pulse Resp BP Pulse Ox 98.3 F 63 17 113/58 96 11/04/17 11:17 11/04/17 11:17 11/04/17 11:17 11/04/17 11:17 11/04/17 11:17 General appearance: Present: A&O X 3, pleasant, no acute distress, answers questions appropriately Exam: GEN: NAD CVS: RRR. S1, S2, No m/r/g RESP: Macrocytosis ABD: Soft, NT, ND, +BS EXT: No edema. 2+ DP. No rashes NEURO: Nonfocal Internal Medicine: Result - Labs CBC & Chem 7: 11/04/17 05:25 11/04/17 05:25 Labs: Short CBC 11/04/17 Range/Units 05:25 WBC 6.0 D (4.3-11.1) K/mcL Hgb 11.1 L (11.5-15.4) g/dL Hct 35.0 L (35.3-44.9) % Plt Count 180 (140-400) K/mcL Neutrophils # 3.7 (1.6-8.9) K/mcL BMP 11/04/17 05:25 Sodium 137 Potassium 4.0 Chloride 98 Carbon Dioxide 22 L BUN 61 H Creatinine 8.89 H Glucose 82 Calcium 8.2 L Cardiac Enzymes 11/04/17 Range/Units 05:25 Troponin I 2.16 H* (< 0.04) ng/mL - ABG Interpretation ABG results: PT/INR, D-dimer PT 24.9 Seconds (9.4-12.1) H 11/04/17 05:25 Consult Discharge Plan - Plan Referrals: Eleazar Calhoun MD [Primary Care Provider] - 11/12/17 10:30 am (Please follow up as schedule...)
[2017-11-04] MEDS: Oseltamivir Phosphate 30 MG CAPSULE PO SCH (15:31)
[2017-11-05 06:22] LABS: Basophils % 0.3 %; Eosinophils % 0.3 %; Hematocrit 35.7 % (35.3-44.9); Hemoglobin 11.1 g/dL (11.5-15.4); Immature Granulocytes % 0.9 % (0-4); Lymphocytes # 1.6 K/mcL (0.6-4.6); Lymphocytes % 20.4 %; Mean Corpuscular HGB Conc 31.1 g/dL (31.6-35.5); Mean Corpuscular Volume 99.7 fL (83.0-100.0); Mean Platelet Volume 10.2 fL (9.4-12.4); Monocytes # 0.4 K/mcL (0.0-1.3); Monocytes % 5.5 %; Neutrophils # 5.7 K/mcL (1.6-8.9); Nucleated Red Blood Cells 0.5 /100 WBC (0); Platelet Count 187 K/mcL (140-400); Red Blood Count 3.58 M/mcL (3.82-4.97); Segmented Neutrophils % 72.6 %
[2017-11-05 06:24] LABS: INR 2.2; Prothrombin Time 24.2 Seconds (9.4-12.1)
[2017-11-05 06:33] LABS: Calcium 7.5 mg/dL (8.6-10.3); Potassium 4.1 mEq/L (3.5-5.1)
[2017-11-05] MEDS ORDERED: 0.9 % Sodium Chloride 250 ML IVC PRN (07:57)
--- NOTE | 2017-11-05 08:03 | Nephrology Progress Note ---
Date of Encounter: 11/05/17 Time of Encounter: 07:40 - Assessment and Plan (1) ESRD (end stage renal disease) on dialysis Current Visit: No Status: Chronic Flu A on Tamiflu. Elevating Troponins, Cardiology on board. ESRD- HD today keeping MWF schedule. Orders given. Subjective Principal diagnosis: NSTEMI Interval history: Sleeping, arouses easily. States breathing easier. Denies chest pain. Objective - Vital Signs Vital signs: Vital Signs Temp Pulse Resp BP Pulse Ox 11/05/17 07:09 98.3 F 62 17 119/71 96 11/05/17 04:07 97.9 F 62 16 112/70 97 11/05/17 00:44 98.1 F 60 16 104/66 97 11/04/17 19:35 98.3 F 61 16 99/63 95 11/04/17 16:14 98.6 F 63 17 103/62 97 11/04/17 11:17 98.3 F 63 17 113/58 96 Intake and Output 11/04/17 11/05/17 11/05/17 23:59 07:59 15:59 Intake Total 0 / 0 Output Total 0 / 0 Balance 0 / 0 Intake: Oral 0 / 0 Output: Urine 0 / 0 Other: Meal ham sandwich Weight 89.3 kg Blood Glucose* 141 156 Patient Weight 11/05/17 23:59 Weight 89.3 kg - General Appearance General appearance: Present: well-developed, well-nourished, appears started age , obese EENT: Present: mucous membranes moist Neck: Present: no JVD Respiratory: Present: rhonchi Cardiology: Present: no edema, regular rate, regular rhythm Gastrointestinal: Present: normoactive bowel sounds, no tenderness Integumentary: Present: warm and dry Neurologic: Present: alert and oriented x3 - Lab 11/05/17 05:57 11/05/17 05:57 Most recent lab results Calcium 7.5 mg/dL (8.6-10.3) L 11/05/17 05:57 Phosphorus 8.5 mg/dL (2.7-4.5) H 11/02/17 04:59 Magnesium 2.1 mg/dL (1.6-2.6) 11/02/17 04:59 Consult Discharge Plan - Plan Referrals: Eleazar Calhoun MD [Primary Care Provider] - 11/12/17 10:30 am (Please follow up as schedule...)
[2017-11-05] MEDS: Insulin LISPRO 300 UNITS/3 ML VIAL SQ SCH ×4 (08:08→21:53)
[2017-11-05] MEDS: amLODIPine 5 MG TABLET PO SCH (08:41)
[2017-11-05] MEDS: hydrALAZINE 25 MG TABLET PO SCH ×2 (08:41→21:53)
[2017-11-05] MEDS: Insulin DETEMIR 100 UNIT/ML X5UNITS SQ SCH ×2 (08:47→21:52)
[2017-11-05] MEDS: Pantoprazole 40 MG VIAL IVP SCH (08:47)
[2017-11-05] MEDS: Gabapentin 100 MG CAPSULE PO SCH ×3 (08:47→21:52)
[2017-11-05] MEDS: Furosemide 40 MG TABLET PO SCH ×2 (08:48→18:21)
[2017-11-05] MEDS: Calcium Acetate 667 MG CAPSULE PO SCH ×3 (08:48→18:26)
[2017-11-05] MEDS: Aspirin 81 MG TAB.CHEW PO SCH (08:48)
--- NOTE | 2017-11-05 09:40 | Internal Med Progress Note ---
Date of Encounter: 11/05/17 Time of Encounter: 09:38 - Assessment and plan (1) Influenza A Current Visit: Yes Status: Acute Assessment and plan: Continue Tamiflu. Last day today (2) NSTEMI (non-ST elevated myocardial infarction) Current Visit: Yes Status: Acute Assessment and plan: Troponins are elevated continue to rise. No chest pain. Cardiology is following. Left heart catheterization planned for today but INR is 2.2. Will see what cardiology decides. Coumadin on hold. Echo results noted. (3) Paroxysmal A-fib Current Visit: No Status: Acute Assessment and plan: Continue metoprolol and warfarin. Warfarin on hold for [facility] but INR is still 2.2 (4) ESRD (end stage renal disease) on dialysis Current Visit: No Status: Chronic Assessment and plan: [employer] following. Dialysis per them. (5) Hypertension Current Visit: No Status: Chronic Assessment and plan: Hold amlodipine and hydralazine again today. We can give her beta rancho. Okay to give Lasix as well. Blood pressure is marginal Qualifiers: Hypertension type: unspecified Qualified Code(s): I10 - Essential (primary ) hypertension (6) Hypertensive urgency Current Visit: No Status: Resolved Assessment and plan: Improving. Plan as above. (7) Chronic diastolic (congestive) heart failure Current Visit: Yes Status: Acute Assessment and plan: Euvolemic. Continue Lasix. (8) DVT prophylaxis Current Visit: Yes Status: Acute Assessment and plan: Coumadin - Subjective Interval history: Patient was seen and examined. Afebrile. Feels well. Plans for dialysis and left heart catheterization today. Leg cramps resolved. Cardiology is seeing the patient for elevated troponins which continues to rise although she has no chest pain. The patient was admitted initially with shortness of breath and found to have flu. She is also noted to have elevated troponins which cardiology is consulted. - Constitutional Vitals: Temp Pulse Resp BP Pulse Ox 98.3 F 62 17 119/71 96 11/05/17 07:09 11/05/17 07:09 11/05/17 07:09 11/05/17 07:09 11/05/17 07:09 General appearance: Present: A&O X 3, pleasant, no acute distress, answers questions appropriately Exam: GEN: NAD CVS: RRR. S1, S2, No m/r/g RESP: Macrocytosis ABD: Soft, NT, ND, +BS EXT: No edema. 2+ DP. No rashes NEURO: Nonfocal Internal Medicine: Result - Labs CBC & Chem 7: 11/05/17 05:57 11/05/17 05:57 Labs: Short CBC 11/05/17 Range/Units 05:57 WBC 7.9 (4.3-11.1) K/mcL Hgb 11.1 L (11.5-15.4) g/dL Hct 35.7 (35.3-44.9) % Plt Count 187 (140-400) K/mcL Neutrophils # 5.7 (1.6-8.9) K/mcL BMP 11/05/17 05:57 Sodium 137 Potassium 4.1 Chloride 97 L Carbon Dioxide 22 L BUN 77 H Creatinine 11.14 H Glucose 132 H Calcium 7.5 L Cardiac Enzymes 11/04/17 Range/Units 05:25 Troponin I 2.16 H* (< 0.04) ng/mL - ABG Interpretation ABG results: PT/INR, D-dimer PT 24.2 Seconds (9.4-12.1) H 11/05/17 05:57 Consult Discharge Plan - Plan Referrals: Eleazar Calhoun MD [Primary Care Provider] - 11/12/17 10:30 am (Please follow up as schedule...)
--- NOTE | 2017-11-05 11:06 | Cardiology Progress Note ---
Date of Encounter: 11/05/17 Time of Encounter: 09:30 Assessment and Plan (1) Influenza A Current Visit: Yes Status: Acute Per cardiology: -Patient presents with complaints of general malaise, cough. -Influenza A positive. -Management per primary service. (2) Troponin level elevated Current Visit: No Status: Acute Per cardiology: -Troponin elevation suggestive of a NSTEMI. Myocarditis also possible given influenzae. -Denies chest pain. -LVEF preserved. -LHC 06/2017 - PTCA to CX. -Recommend continue supportive care for influenzae for now given lack of cardiac symptoms, preserved LVEF. -Discussed the R/B/A to a [facility]. She would be agreeable. -Also, Coumadin will need to be held in preparation for the procedure. Start heparin drip when INR < 2. -Continue aspirin/plavix/bb/indur. Statin allergy noted. -INR 2.2 today, unable to perform LHC today. -Will make NPO after midnight for possible LHC in am. -Will repeat labs in am. Hold coumadin. Start heparin drip when INR less than 2. -Will continue to monitor. (3) CAD in [place] artery Current Visit: No Status: Acute Per cardiology: -[place] CAD, recent LHC with PTCA to circumflex artery. -LV EF preserved. -Recommend continue aspirin/Plavix, beta rancho, and Imdur therapy. -Patient reports statin allergy. (4) Paroxysmal A-fib Current Visit: No Status: Acute Per cardiology: -Paroxysmal atrial fibrillation. -Coumadin being held for LHC. -Bridge with heparin when INR <2. -Currently SR, HR controlled. -Continue telemetry. -Start heparin drip when INR less than 2. Discussion w patient/family: The assessment and plan as outlined above was discussed with the patient who expressed understanding and agreement. All questions were answered. Thank you for involving us in the care of your patient. Please call with any questions. Discussed and reviewed with . Subjective Principal diagnosis: NSTEMI Interval history: Patient denies chest pain. Objective Vital Signs, Last 4 Hours Temp Pulse Resp BP Pulse Ox 11/05/17 10:49 109/58 11/05/17 10:35 116/60 11/05/17 10:20 117/62 11/05/17 10:05 95/63 11/05/17 09:50 98/51 11/05/17 09:35 114/61 11/05/17 09:20 122/67 11/05/17 07:09 98.3 F 62 17 119/71 96 General: Conversant, No Apparent Distress HEENT: Atraumatic, Normocephaly, Mucus Membranes Moist Neck: No JVD, Normal carotid pulses Cardiac: Reg Rate and Rhythm, Normal S1 and S2, No Murmur Lungs: Normal Breath Sounds, No Wheeze, Rales, Rhonchi Neuro: Alert and responsive, No focal deficits noted Abdomen: Soft, Non-Tender Skin: No rashes noted on visualized skin Musculoskeletal: No Chest Wall Tenderness Extremities: No Clubbing, No Cyanosis, No Edema, Normal Pulses Results 11/05/17 05:57 11/05/17 05:57 Lab Results Active Medications Albuterol Sulfate (Albuterol Inhaler) 2 puff IH [id number] PRN PRN Reason: Shortness Of Breath Stop: 05/03/18 23:03 Allopurinol (Zyloprim) 200 mg PO DAILY [facility] Stop: 05/04/18 09:01 Last Admin: 11/05/17 08:47 Dose: 200 mg Amiodarone HCl (Cordarone) 200 mg PO DAILY [facility] Stop: 05/04/18 09:01 Last Admin: 11/04/17 09:46 Dose: 200 mg Amlodipine Besylate (Norvasc) 5 mg PO DAILY [facility] PRN Reason: Protocol Stop: 05/04/18 09:01 Last Admin: 11/05/17 08:41 Dose: Not Given Aspirin (Aspirin) 81 mg PO DAILY [facility] Stop: 05/04/18 09:01 Last Admin: 11/05/17 08:48 Dose: 81 mg Calcium Acetate (Phos-Lo) 1,334 mg PO TIDWM [facility] Stop: 05/04/18 08:01 Last Admin: 11/05/17 08:48 Dose: Not Given Citalopram Hydrobromide (Celexa) 10 mg PO DAILY [facility] Stop: 05/04/18 09:01 Last Admin: 11/05/17 08:47 Dose: 10 mg Clopidogrel Bisulfate (Plavix) 75 mg PO DAILY [facility] Stop: 05/04/18 09:01 Last Admin: 11/05/17 08:47 Dose: 75 mg Dextrose/Water (Dextrose 50% (Syg)) 25 ml IVP AD PRN PRN Reason: Hypoglycemia Stop: 05/04/18 08:17 Furosemide (Lasix) 40 mg PO BIDDIURETIC [facility] Stop: 05/04/18 08:16 Last Admin: 11/05/17 08:48 Dose: 40 mg Gabapentin (Neurontin) 100 mg PO TID [facility] Stop: 05/04/18 09:01 Last Admin: 11/05/17 08:47 Dose: 100 mg Glucagon (Glucagen) 1 mg IM ONCE PRN PRN Reason: Hypoglycemia Stop: 05/04/18 08:17 Glucose (Gluctose) 15 gm PO ONCE PRN PRN Reason: Hypoglycemia Stop: 05/04/18 08:17 Glucose (Gluctose) 30 gm PO ONCE PRN PRN Reason: Hypoglycemia Stop: 05/04/18 08:17 Hydralazine HCl (Hydralazine) 25 mg PO BID [facility] Stop: 05/05/18 07:32 Last Admin: 11/05/17 08:41 Dose: Not Given Dextrose (Dextrose 5%) 1,000 mls @ 100 mls/hr IVC .Q10H PRN PRN Reason: HYPOGLYCEMIA Stop: 05/04/18 08:17 Sodium Chloride (0.9 % Sodium Chloride) 250 mls @ 937.5 mls/hr IVC .Q16M PRN PRN Reason: Hypotension Stop: 05/07/18 07:58 Insulin Detemir (Levemir) 18 unit SQ BID [facility] Stop: 05/04/18 09:01 Last Admin: 11/05/17 08:47 Dose: 18 unit Insulin Human Lispro (Humalog) 0 units SQ HS [facility] PRN Reason: Protocol Stop: 05/04/18 21:01 Last Admin: 11/04/17 20:54 Dose: Not Given Insulin Human Lispro (Humalog) 0 units SQ TIDAC [facility] PRN Reason: Protocol Stop: 05/04/18 08:31 Last Admin: 11/05/17 08:08 Dose: Not Given Isosorbide Mononitrate (Imdur) 120 mg PO DAILY [facility] Stop: 05/04/18 09:01 Last Admin: 11/04/17 09:46 Dose: 120 mg Lansoprazole (Prevacid) 15 mg PO QAM [facility] PRN Reason: Protocol Stop: 05/08/18 09:01 Metoprolol Succinate (Toprol Xl) 100 mg PO DAILY [facility] Stop: 05/04/18 09:01 Last Admin: 11/04/17 09:47 Dose: 100 mg Naloxone HCl (Narcan) 0.4 mg IVP Q2MIN PRN PRN Reason: SEE COMMENTS Stop: 05/03/18 23:01 Oseltamivir Phosphate (Tamiflu) 30 mg PO DAILY@1600 [facility] Stop: 11/06/17 16:01 Last Admin: 11/04/17 15:31 Dose: 30 mg Promethazine HCl (Phenergan) 12.5 mg IVP Q6HR PRN PRN Reason: Nausea And Vomiting Stop: 05/04/18 20:05 Last Admin: 11/02/17 20:47 Dose: 12.5 mg Warfarin Sodium (Coumadin Perpt) 1 each PO DAILY@1800 PRN PRN Reason: ON HOLD FOR NOW Stop: 05/05/18 11:52 Laboratory Tests 11/05/17 11/05/17 11/05/17 05:57 05:57 05:57 Hgb 11.1 L INR 2.2 Creatinine 11.14 H - Imaging and Cardiology Chest Xray: report reviewed Echo: report reviewed - EKG Interpretation EKG results cardiology: other (Telemetry reviewed with average HR previous 12 hours noted to be 68, SR. PVCs and PACs noted.) Consult Discharge Plan - Plan Referrals: Eleazar Calhoun MD [Primary Care Provider] - 11/12/17 10:30 am (Please follow up as schedule...)
[2017-11-05] MEDS: Isosorbide MONOnitrate (24 HR) 60 MG TAB.ER.24H PO SCH (14:41)
[2017-11-05] MEDS: Metoprolol XL (24 HR) Succ 50 MG TAB.ER.24H PO SCH (14:42)
[2017-11-05] MEDS: Oseltamivir Phosphate 30 MG CAPSULE PO SCH (14:42)
[2017-11-05] MEDS: *HR* Amiodarone 200 MG TABLET PO SCH (14:42)
[2017-11-06 05:55] LABS: Basophils % 0.6 %; Eosinophils % 0.3 %; Hematocrit 34.3 % (35.3-44.9); Hemoglobin 11.1 g/dL (11.5-15.4); Immature Granulocytes % 1.8 % (0-4); Lymphocytes # 2.1 K/mcL (0.6-4.6); Mean Corpuscular HGB Conc 32.4 g/dL (31.6-35.5); Mean Corpuscular Hemoglobin 31.9 pg (28.0-33.3); Mean Corpuscular Volume 98.6 fL (83.0-100.0); Mean Platelet Volume 9.9 fL (9.4-12.4); Monocytes # 0.5 K/mcL (0.0-1.3); Monocytes % 6.6 %; Neutrophils # 4.4 K/mcL (1.6-8.9); Platelet Count 213 K/mcL (140-400); Red Blood Count 3.48 M/mcL (3.82-4.97); Red Cell Distribution Width 14.1 % (11.5-14.5); Segmented Neutrophils % 61.7 %
[2017-11-06 06:01] LABS: INR 1.8; Prothrombin Time 19.6 Seconds (9.4-12.1)
[2017-11-06 06:10] LABS: Calcium 8.1 mg/dL (8.6-10.3); Potassium 3.7 mEq/L (3.5-5.1)
[2017-11-06] MEDS ORDERED: *HR* Heparin 5,000 UNIT/ML VIAL IVP PRN ×2 (07:59)
[2017-11-06] MEDS: Calcium Acetate 667 MG CAPSULE PO SCH ×3 (08:44→17:02)
[2017-11-06] MEDS: Isosorbide MONOnitrate (24 HR) 60 MG TAB.ER.24H PO SCH (08:45)
[2017-11-06] MEDS: Aspirin 81 MG TAB.CHEW PO SCH (08:45)
[2017-11-06] MEDS: Gabapentin 100 MG CAPSULE PO SCH ×3 (08:45→21:06)
[2017-11-06] MEDS: amLODIPine 5 MG TABLET PO SCH (08:45)
[2017-11-06] MEDS: Furosemide 40 MG TABLET PO SCH ×2 (08:46→17:02)
[2017-11-06] MEDS: Metoprolol XL (24 HR) Succ 50 MG TAB.ER.24H PO SCH (08:47)
[2017-11-06] MEDS: *HR* Amiodarone 200 MG TABLET PO SCH (08:47)
[2017-11-06] MEDS: hydrALAZINE 25 MG TABLET PO SCH ×2 (08:48→21:06)
[2017-11-06] MEDS: Insulin LISPRO 300 UNITS/3 ML VIAL SQ SCH ×4 (08:52→21:05)
[2017-11-06] MEDS: Insulin DETEMIR 100 UNIT/ML X5UNITS SQ SCH ×2 (08:52→21:29)
--- NOTE | 2017-11-06 09:20 | Internal Med Progress Note ---
Date of Encounter: 11/06/17 Time of Encounter: 13:15 - Assessment and plan (1) NSTEMI (non-ST elevated myocardial infarction) Current Visit: Yes Status: Acute Assessment and plan: Continue management per cardiology recommendations with intravenous heparin while awaiting left heart catheterization. High risk for complications. No longer having any chest pain. Continue monitoring with telemetry. Left heart catheterization when INR appropriate for this procedure. Ordered fresh frozen plasma if needed (2) Chronic diastolic (congestive) heart failure Current Visit: Yes Status: Chronic Assessment and plan: On oral Lasix. Volume management with dialysis. (3) ESRD (end stage renal disease) on dialysis Current Visit: Yes Status: Chronic Assessment and plan: Continue dialysis per nephrology recommendations. (4) Hypertension Current Visit: Yes Status: Chronic Assessment and plan: Well controlled. Continue amlodipine, metoprolol and hydralazine. Qualifiers: Hypertension type: essential hypertension Qualified Code(s): I10 - Essential (primary) hypertension (5) Hypertensive urgency Current Visit: No Status: Resolved (6) Influenza A Current Visit: Yes Status: Acute Assessment and plan: Completed treatment with Tamiflu. Continue symptomatic care. (7) Paroxysmal A-fib Current Visit: Yes Status: Acute Assessment and plan: Rate controlled and regular rhythm at this time. On anticoagulation with Coumadin. (8) DVT prophylaxis Current Visit: Yes Status: Acute Assessment and plan: Anticoagulation with Coumadin and IV heparin - Subjective Interval history: Patient is awake and alert. Denies any chest pain at this time. Is awaiting left heart catheterization. Continues to have cough. Especially with deep breaths. Shortness of breath is improving. No fever or chills reported. - Constitutional Vitals: Temp Pulse Resp BP Pulse Ox 97.9 F 60 17 101/64 98 11/06/17 07:57 11/06/17 07:57 11/06/17 07:57 11/06/17 07:57 11/06/17 07:57 General appearance: Present: A&O X 3, pleasant, no acute distress, answers questions appropriately - Neck Neck exam general surgery: Present: supple, trachea midline. Absent: lymphadenopathy - Respiratory Respiratory exam: Present: rhonchi. Absent: accessory muscle use, rales, wheezes - Cardiovascular Cardiovascular exam: Present: RRR, +S1, +S2. Absent: diastolic murmur, gallop, rubs, systolic murmur - GI/Abdominal GI/Abdominal exam: Present: normal bowel sounds, soft, no peritoneal signs. Absent: distended, tenderness - Extremities Exam Extremities exam: Present: warm, radial pulses palpable and symmetrical. Absent : calf tenderness, cyanotic, pedal edema Internal Medicine: Result - Labs CBC & Chem 7: 11/07/17 02:01 11/07/17 02:01 Labs: Short CBC 11/06/17 Range/Units 05:04 WBC 7.2 (4.3-11.1) K/mcL Hgb 11.1 L (11.5-15.4) g/dL Hct 34.3 L (35.3-44.9) % Plt Count 213 (140-400) K/mcL Neutrophils # 4.4 (1.6-8.9) K/mcL BMP 11/06/17 05:04 Sodium 134 L Potassium 3.7 Chloride 95 L Carbon Dioxide 26 BUN 47 H Creatinine 7.60 H Glucose 83 Calcium 8.1 L - ABG Interpretation ABG results: PT/INR, D-dimer PT 19.6 Seconds (9.4-12.1) H 11/06/17 05:04 Consult Discharge Plan - Plan Referrals: Eleazar Calhoun MD [Primary Care Provider] - 11/12/17 10:30 am (Please follow up as schedule...)
[2017-11-06] MEDS: Heparin 25,000 UNIT/500 ML D5W 25,000 UNIT/500 ML BAG IVC SCH (10:12)
[2017-11-06 14:18] LABS: INR 1.7; Prothrombin Time 18.9 Seconds (9.4-12.1)
--- NOTE | 2017-11-06 15:27 | Cardiology Progress Note ---
Date of Encounter: 11/06/17 Time of Encounter: 15:25 Assessment and Plan (1) Influenza A Current Visit: Yes Status: Acute Per cardiology: -Patient presents with complaints of general malaise, cough. -Influenza A positive. -Management per primary service. (2) Troponin level elevated Current Visit: No Status: Acute Per cardiology: -Troponin elevation suggestive of a NSTEMI. Myocarditis also possible given influenzae. -Denies chest pain. -LVEF preserved. -LHC 06/2017 - PTCA to CX. -Recommend continue supportive care for influenzae for now given lack of cardiac symptoms, preserved LVEF. -Discussed the R/B/A to a [facility]. She would be agreeable. -Also, Coumadin will need to be held in preparation for the procedure. -INR this am 1.8, started heparin drip. -Continue aspirin/plavix/bb/indur. Statin allergy noted. -Repeated INR this afternoon and noted ot be 1.7. Discussed with Dr.Jennifer Fritz, INR too high for LHC. -Will make npo after midnight for possible LHC in am. -Labs in am. -Will continue to monitor. (3) CAD in [place] artery Current Visit: No Status: Acute Per cardiology: -[place] CAD, recent LHC with PTCA to circumflex artery. -LV EF preserved. -Recommend continue aspirin/Plavix, beta [place], and Imdur therapy. -Patient reports statin allergy. (4) Paroxysmal A-fib Current Visit: No Status: Acute Per cardiology: -Paroxysmal atrial fibrillation. -Coumadin being held for LHC. -Bridge with heparin when INR <2. -Currently SR, HR controlled. -Continue telemetry. -Now on heparin drip. Discussion w patient/family: The assessment and plan as outlined above was discussed with the patient who expressed understanding and agreement. All questions were answered. Thank you for involving us in the care of your patient. Please call with any questions. Discussed and reviewed with . Subjective Principal diagnosis: NSTEMI Interval history: Patient denies chest pain. Awaiting LHC. Objective Vital Signs Temperature 100.3 F H 11/01/17 12:51 Pulse Rate 79 11/01/17 12:51 Respiratory Rate 18 11/01/17 12:51 Blood Pressure 135/75 11/01/17 12:51 O2 Sat by Pulse Oximetry 95 11/01/17 12:51 Temperature 97.9 F 11/06/17 11:11 Pulse Rate 60 11/06/17 11:11 Respiratory Rate 16 11/06/17 11:11 Blood Pressure 96/59 11/06/17 11:11 O2 Sat by Pulse Oximetry 95 11/06/17 11:11 Oxygen Delivery Oxygen Delivery Nasal Cannula General: Conversant, No Apparent Distress HEENT: Atraumatic, Normocephaly, Mucus Membranes Moist Neck: No JVD, Normal carotid pulses Cardiac: Reg Rate and Rhythm, Normal S1 and S2, No Murmur Lungs: Normal Breath Sounds, No Wheeze, Rales, Rhonchi Neuro: Alert and responsive, No focal deficits noted Abdomen: Soft, Non-Tender Skin: No rashes noted on visualized skin Musculoskeletal: No Chest Wall Tenderness Extremities: No Clubbing, No Cyanosis, No Edema, Normal Pulses Results 11/06/17 05:04 11/06/17 05:04 Lab Results Active Medications Albuterol Sulfate (Albuterol Inhaler) 2 puff IH [id number] PRN PRN Reason: Shortness Of Breath Stop: 05/03/18 23:03 Allopurinol (Zyloprim) 200 mg PO DAILY [facility] Stop: 05/04/18 09:01 Last Admin: 11/06/17 08:45 Dose: 200 mg Amiodarone HCl (Cordarone) 200 mg PO DAILY [facility] Stop: 05/04/18 09:01 Last Admin: 11/06/17 08:47 Dose: 200 mg Amlodipine Besylate (Norvasc) 5 mg PO DAILY [facility] PRN Reason: Protocol Stop: 05/04/18 09:01 Last Admin: 11/06/17 08:45 Dose: 5 mg Aspirin (Aspirin) 81 mg PO DAILY [facility] Stop: 05/04/18 09:01 Last Admin: 11/06/17 08:45 Dose: 81 mg Calcium Acetate (Phos-Lo) 1,334 mg PO TIDWM [facility] Stop: 05/04/18 08:01 Last Admin: 11/06/17 11:35 Dose: Not Given Citalopram Hydrobromide (Celexa) 10 mg PO DAILY [facility] Stop: 05/04/18 09:01 Last Admin: 11/06/17 08:45 Dose: 10 mg Clopidogrel Bisulfate (Plavix) 75 mg PO DAILY [facility] Stop: 05/04/18 09:01 Last Admin: 11/06/17 08:45 Dose: 75 mg Dextrose/Water (Dextrose 50% (Syg)) 25 ml IVP AD PRN PRN Reason: Hypoglycemia Stop: 05/04/18 08:17 Furosemide (Lasix) 40 mg PO BIDDIURETIC [facility] Stop: 05/04/18 08:16 Last Admin: 11/06/17 08:46 Dose: 40 mg Gabapentin (Neurontin) 100 mg PO TID [facility] Stop: 05/04/18 09:01 Last Admin: 11/06/17 14:21 Dose: 100 mg Glucagon (Glucagen) 1 mg IM ONCE PRN PRN Reason: Hypoglycemia Stop: 05/04/18 08:17 Glucose (Gluctose) 15 gm PO ONCE PRN PRN Reason: Hypoglycemia Stop: 05/04/18 08:17 Glucose (Gluctose) 30 gm PO ONCE PRN PRN Reason: Hypoglycemia Stop: 05/04/18 08:17 Heparin Sodium (Porcine) (Heparin) 6,500 unit 70 unit/kg (6500 unit) IVP Q6HR PRN PRN Reason: SEE COMMENTS Stop: 05/08/18 08:00 Heparin Sodium (Porcine) (Heparin) 3,200 unit 35 unit/kg (3200 unit) IVP Q6H PRN PRN Reason: SEE COMMENTS Stop: 05/08/18 08:00 Hydralazine HCl (Hydralazine) 25 mg PO BID [facility] Stop: 05/05/18 07:32 Last Admin: 11/06/17 08:48 Dose: 25 mg Dextrose (Dextrose 5%) 1,000 mls @ 100 mls/hr IVC .Q10H PRN PRN Reason: HYPOGLYCEMIA Stop: 05/04/18 08:17 Sodium Chloride (0.9 % Sodium Chloride) 250 mls @ 937.5 mls/hr IVC .Q16M PRN PRN Reason: Hypotension Stop: 05/07/18 07:58 Heparin Sodium/Dextrose (Heparin 25,000 Unit/500 Ml D5w) 25,000 unit in 500 mls @ 25.872 mls/hr IVC .[id number] [facility]; 14 UNIT/KG/HR PRN Reason: Protocol Stop: 05/08/18 08:01 Last Admin: 11/06/17 10:12 Dose: 14 unit/kg/hr, 25.872 mls/hr Insulin Detemir (Levemir) 18 unit SQ BID [facility] Stop: 05/04/18 09:01 Last Admin: 11/06/17 08:52 Dose: 18 unit Insulin Human Lispro (Humalog) 0 units SQ HS [facility] PRN Reason: Protocol Stop: 05/04/18 21:01 Last Admin: 11/05/17 21:53 Dose: Not Given Insulin Human Lispro (Humalog) 0 units SQ TIDAC [facility] PRN Reason: Protocol Stop: 05/04/18 08:31 Last Admin: 11/06/17 11:34 Dose: Not Given Isosorbide Mononitrate (Imdur) 120 mg PO DAILY [facility] Stop: 05/04/18 09:01 Last Admin: 11/06/17 08:45 Dose: 120 mg Lansoprazole (Prevacid) 15 mg PO QAM [facility] PRN Reason: Protocol Stop: 05/08/18 09:01 Last Admin: 11/06/17 08:44 Dose: 15 mg Metoprolol Succinate (Toprol Xl) 100 mg PO DAILY [facility] Stop: 05/04/18 09:01 Last Admin: 11/06/17 08:47 Dose: 100 mg Naloxone HCl (Narcan) 0.4 mg IVP Q2MIN PRN PRN Reason: SEE COMMENTS Stop: 05/03/18 23:01 Oseltamivir Phosphate (Tamiflu) 30 mg PO DAILY@1600 [facility] Stop: 11/06/17 16:01 Last Admin: 11/05/17 14:42 Dose: 30 mg Promethazine HCl (Phenergan) 12.5 mg IVP Q6HR PRN PRN Reason: Nausea And Vomiting Stop: 05/04/18 20:05 Last Admin: 11/02/17 20:47 Dose: 12.5 mg Warfarin Sodium (Coumadin Perpt) 1 each PO DAILY@1800 PRN PRN Reason: ON HOLD FOR NOW Stop: 05/05/18 11:52 Laboratory Tests 11/06/17 11/06/17 11/06/17 05:04 05:04 05:04 Hgb 11.1 L INR 1.8 Creatinine 7.60 H - Imaging and Cardiology Chest Xray: report reviewed Echo: report reviewed Cardiac cath: pending - EKG Interpretation EKG results cardiology: other (Telemtry reviewed with average HR previous 12 hours noted to be 57, SB. PVCS and PACs noted.) Consult Discharge Plan - Plan Referrals: Eleazar Calhoun MD [Primary Care Provider] - 11/12/17 10:30 am (Please follow up as schedule...)
[2017-11-06] MEDS ORDERED: 0.9 % Sodium Chloride 500 ML IVC ONE (16:52)
[2017-11-06] MEDS ORDERED: 0.9 % Sodium Chloride 500 ML ONE (16:59)
[2017-11-06] MEDS: Oseltamivir Phosphate 30 MG CAPSULE PO SCH (17:02)
[2017-11-06 17:24] LABS: Activated Partial Thrombo Time 247.2 Seconds (26.0-36.0)
[2017-11-06 18:10] LABS: Heparin anti-factor XA UFH 0.51 IU/mL (0.30-0.70)
[2017-11-07 01:43] LABS: Activated Partial Thrombo Time 222.1 Seconds (26.0-36.0)
[2017-11-07 01:47] LABS: Heparin anti-factor XA UFH 0.46 IU/mL (0.30-0.70)
[2017-11-07 02:14] LABS: Hematocrit 33.2 % (35.3-44.9); Hemoglobin 10.6 g/dL (11.5-15.4); Mean Corpuscular HGB Conc 31.9 g/dL (31.6-35.5); Mean Corpuscular Hemoglobin 31.9 pg (28.0-33.3); Mean Platelet Volume 9.8 fL (9.4-12.4); Platelet Count 224 K/mcL (140-400); Red Blood Count 3.32 M/mcL (3.82-4.97)
[2017-11-07 02:20] LABS: INR 1.7; Prothrombin Time 18.2 Seconds (9.4-12.1)
[2017-11-07 02:33] LABS: Calcium 8.1 mg/dL (8.6-10.3); Potassium 3.8 mEq/L (3.5-5.1)
[2017-11-07] MEDS ORDERED: 0.9 % Sodium Chloride 250 ML ONE (03:50)
[2017-11-07] MEDS ORDERED: 0.9 % Sodium Chloride 1,000 ML ONE ×2 (07:36→12:46)
[2017-11-07] MEDS: Heparin 25,000 UNIT/500 ML D5W 25,000 UNIT/500 ML BAG IVC SCH (08:17)
[2017-11-07] MEDS: Insulin LISPRO 300 UNITS/3 ML VIAL SQ SCH ×4 (08:18→21:46)
--- NOTE | 2017-11-07 08:55 | Nephrology Progress Note ---
Date of Encounter: 11/07/17 Time of Encounter: 08:40 - Assessment and Plan (1) ESRD (end stage renal disease) on dialysis Current Visit: No Status: Chronic Flu A on Tamiflu. Elevated Troponins, Cardiology on board. ESRD- HD today keeping MWF schedule. Orders given. Subjective Principal diagnosis: NSTEMI Interval history: Laying quietly. Denies chest pain. States received plasma last night. Thinks having LHC today. Objective - Vital Signs Vital signs: Vital Signs Temp Pulse Resp BP Pulse Ox 11/07/17 07:03 97.5 F L 56 16 114/72 97 11/07/17 06:37 97.4 F L 56 16 125/76 95 11/07/17 04:14 98.2 F 61 16 128/65 93 11/07/17 03:59 97.9 F 59 18 136/70 96 11/07/17 03:55 97.7 F 61 16 130/76 95 11/07/17 03:35 97.9 F 59 18 136/70 96 11/06/17 23:35 97.8 F 58 18 94/53 96 11/06/17 18:47 98.2 F 54 17 102/63 99 11/06/17 16:40 98.3 F 60 16 88/49 94 11/06/17 11:11 97.9 F 60 16 96/59 95 Intake and Output 11/06/17 11/07/17 11/07/17 23:59 07:59 15:59 Intake Total 150 / 150 455 / 455 Balance 150 / 150 455 / 455 Intake: IV Fluids 100 / 100 205 / 205 Heparin 25,000 UNIT/500 ML D5W 100 / 100 205 / 205 25,000 unit In 500 ml @ 14 UNIT /KG/HR 25.872 mls/hr IVC . [id number] [facility] Rx#:[id number] Oral 50 / 50 Blood Product 250 / 250 Plasma Unit [id number] 250 / 250 Other: Meal Dinner Percent of Meal Consumed 85% Weight 93.2 kg Blood Glucose* 103 127 Patient Weight 11/07/17 23:59 Weight 93.2 kg - General Appearance General appearance: Present: well-developed, well-nourished, appears started age EENT: Present: mucous membranes moist Neck: Present: no JVD Respiratory: Present: clear Cardiology: Present: no edema, regular rate, regular rhythm Gastrointestinal: Present: normoactive bowel sounds, no tenderness Integumentary: Present: warm and dry Neurologic: Present: alert and oriented x3 - Lab 11/07/17 02:01 11/07/17 02:01 Most recent lab results Calcium 8.1 mg/dL (8.6-10.3) L 11/07/17 02:01 Phosphorus 8.5 mg/dL (2.7-4.5) H 11/02/17 04:59 Magnesium 2.1 mg/dL (1.6-2.6) 11/02/17 04:59 Consult Discharge Plan - Plan Referrals: Eleazar Calhoun MD [Primary Care Provider] - 11/12/17 10:30 am (Please follow up as schedule...)
[2017-11-07] MEDS: Insulin DETEMIR 100 UNIT/ML X5UNITS SQ SCH ×2 (08:57→22:01)
[2017-11-07] MEDS: Gabapentin 100 MG CAPSULE PO SCH ×3 (08:57→22:01)
[2017-11-07] MEDS: Aspirin 81 MG TAB.CHEW PO SCH (08:57)
[2017-11-07] MEDS: Furosemide 40 MG TABLET PO SCH ×2 (08:58→15:15)
[2017-11-07] MEDS: Calcium Acetate 667 MG CAPSULE PO SCH ×3 (08:58→18:26)
[2017-11-07] MEDS ORDERED: 0.9 % Sodium Chloride 250 ML IVC PRN (10:21)
[2017-11-07] MEDS ORDERED: 0.9 % Sodium Chloride 1,000 ML PRIME SCH (10:30)
[2017-11-07 11:45] LABS: INR 1.4; Prothrombin Time 15.3 Seconds (9.4-12.1)
[2017-11-07 11:49] LABS: Activated Partial Thrombo Time 53.2 Seconds (26.0-36.0)
--- NOTE | 2017-11-07 11:55 | Event Note ---
Date of Encounter: 11/07/17 Time of Encounter: 11:54 - Cardiology Event Note PLan for LHC today for NSTEMI. INR 1.4. Discussed and reviewed with charlotte Abbasi to proceed with LHC. RIsks versus benefits of LHC explained to patient. Patient states understanding and agreeable to proceed. Further recommendations pending LHC.
[2017-11-07] MEDS ORDERED: *HR* Heparin 10,000 UNIT/10 ML VIAL ONE (12:45)
[2017-11-07] MEDS ORDERED: Nitroglycerin 1,000 MCG/10 ML VIAL IV ONE (12:46)
[2017-11-07] MEDS ORDERED: Heparin 1,000 UNITS/500 mL 500 ML ONE (12:46)
[2017-11-07] MEDS ORDERED: ISOVUE-370 200 ML INFUS..BTL IV ONE (12:46)
--- NOTE | 2017-11-07 14:22 | Event Note ---
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 Will change diet now. Continue heparin drip. Will make NPO after midnight for LHC tomorrow.
[2017-11-07] MEDS: hydrALAZINE 25 MG TABLET PO SCH ×2 (15:15→22:47)
[2017-11-07] MEDS: Isosorbide MONOnitrate (24 HR) 60 MG TAB.ER.24H PO SCH (15:16)
[2017-11-07] MEDS: *HR* Amiodarone 200 MG TABLET PO SCH (15:17)
[2017-11-07] MEDS: amLODIPine 5 MG TABLET PO SCH (15:17)
[2017-11-07] MEDS: Metoprolol XL (24 HR) Succ 50 MG TAB.ER.24H PO SCH (15:17)
--- NOTE | 2017-11-07 16:03 | Internal Med Progress Note ---
Date of Encounter: 11/07/17 Time of Encounter: 16:00 - Assessment and plan (1) NSTEMI (non-ST elevated myocardial infarction) Current Visit: Yes Status: Acute Assessment and plan: Continue current management. Cardiac catheterization planned for tomorrow. On IV heparin. No chest pain at this time. Moderate risk for complications. (2) Chronic diastolic (congestive) heart failure Current Visit: Yes Status: Chronic Assessment and plan: Stable. Continue Lasix. Volume management with hemodialysis. (3) ESRD (end stage renal disease) on dialysis Current Visit: Yes Status: Chronic Assessment and plan: Dialysis done today. Follow nephrology recommendations. (4) Hypertension Current Visit: Yes Status: Chronic Assessment and plan: Well controlled. Qualifiers: Hypertension type: essential hypertension Qualified Code(s): I10 - Essential (primary) hypertension (5) Hypertensive urgency Current Visit: No Status: Resolved (6) Influenza A Current Visit: Yes Status: Acute Assessment and plan: Completed course of Tamiflu. (7) Paroxysmal A-fib Current Visit: Yes Status: Chronic Assessment and plan: Rate controlled. Coumadin on hold due to planned left heart catheterization. On IV heparin (8) DVT prophylaxis Current Visit: Yes Status: Acute Assessment and plan: Continue IV heparin - Subjective Interval history: Patient seen at dialysis. Comfortable. Denies any chest pain at this time. Continues to have cough and some shortness of breath although overall symptoms seem to be improving. Cardiac catheterization was scheduled for today but patient does not feel well enough to go for this procedure after dialysis. As such it to be postponed to tomorrow. - Constitutional Vitals: Temp Pulse Resp BP Pulse Ox 98.1 F 56 18 117/67 97 11/07/17 14:30 11/07/17 07:03 11/07/17 14:30 11/07/17 14:30 11/07/17 07:03 General appearance: Present: A&O X 3, pleasant, no acute distress, answers questions appropriately - Neck Neck exam general surgery: Present: supple, trachea midline. Absent: lymphadenopathy - Respiratory Respiratory exam: Present: decreased breath sounds (at both bases), CTAB. Absent: accessory muscle use, rales, rhonchi, wheezes - Cardiovascular Cardiovascular exam: Present: RRR, +S1, +S2. Absent: diastolic murmur, gallop, rubs, systolic murmur - GI/Abdominal GI/Abdominal exam: Present: normal bowel sounds, soft, no peritoneal signs. Absent: distended, tenderness - Extremities Exam Extremities exam: Present: warm, radial pulses palpable and symmetrical. Absent : calf tenderness, cyanotic, pedal edema Internal Medicine: Result - Labs CBC & Chem 7: 11/07/17 02:01 11/07/17 02:01 Labs: Short CBC 11/07/17 Range/Units 02:01 WBC 8.5 (4.3-11.1) K/mcL Hgb 10.6 L (11.5-15.4) g/dL Hct 33.2 L (35.3-44.9) % Plt Count 224 (140-400) K/mcL BMP 11/07/17 02:01 Sodium 134 L Potassium 3.8 Chloride 95 L Carbon Dioxide 23 BUN 59 H Creatinine 9.65 H Glucose 143 H Calcium 8.1 L - ABG Interpretation ABG results: PT/INR, D-dimer PT 15.3 Seconds (9.4-12.1) H 11/07/17 11:27 Consult Discharge Plan - Plan Referrals: Eleazar Calhoun MD [Primary Care Provider] - 11/12/17 10:30 am (Please follow up as schedule...)
[2017-11-07 22:32] LABS: Activated Partial Thrombo Time 140.2 Seconds (26.0-36.0)
[2017-11-07 22:35] LABS: Heparin anti-factor XA UFH 0.3 IU/mL (0.30-0.70)
[2017-11-08] MEDS: Heparin 25,000 UNIT/500 ML D5W 25,000 UNIT/500 ML BAG IVC SCH (00:18)
[2017-11-08 06:44] LABS: INR 1.4; Prothrombin Time 15.5 Seconds (9.4-12.1)
--- NOTE | 2017-11-08 08:26 | Event Note ---
Date of Encounter: 11/08/17 Time of Encounter: 08:25 - Cardiology Event Note Laboratory Tests 11/01/17 11/01/17 11/02/17 13:18 23:17 04:59 INR Creatinine Est GFR (Non-Af Amer) Troponin I 0.08 H* 0.07 H* 0.24 H* 11/02/17 11/03/17 11/04/17 10:58 04:33 05:25 INR Creatinine Est GFR (Non-Af Amer) Troponin I 1.46 H* 3.73 H* 2.16 H* 11/07/17 11/08/17 02:01 06:01 INR 1.4 Creatinine 9.65 H Est GFR (Non-Af Amer) 4 L Troponin I Peak trop 3.73. INR = 1.4. For C. Chest pain-free. All questions answered. Further recs after catheterization.
[2017-11-08] MEDS: Insulin LISPRO 300 UNITS/3 ML VIAL SQ SCH ×3 (08:35→17:06)
[2017-11-08] MEDS: Calcium Acetate 667 MG CAPSULE PO SCH ×3 (08:50→17:17)
[2017-11-08] MEDS: amLODIPine 5 MG TABLET PO SCH (09:03)
[2017-11-08] MEDS: *HR* Amiodarone 200 MG TABLET PO SCH (09:03)
[2017-11-08] MEDS: Isosorbide MONOnitrate (24 HR) 60 MG TAB.ER.24H PO SCH (09:03)
[2017-11-08] MEDS: Metoprolol XL (24 HR) Succ 50 MG TAB.ER.24H PO SCH (09:03)
[2017-11-08] MEDS: Gabapentin 100 MG CAPSULE PO SCH ×2 (09:04→15:04)
[2017-11-08] MEDS: Aspirin 81 MG TAB.CHEW PO SCH (09:04)
[2017-11-08] MEDS: hydrALAZINE 25 MG TABLET PO SCH (09:04)
[2017-11-08] MEDS: Furosemide 40 MG TABLET PO SCH ×2 (09:04→17:17)
[2017-11-08 09:19] LABS: Calcium 8.5 mg/dL (8.6-10.3); Potassium 4.4 mEq/L (3.5-5.1)
--- NOTE | 2017-11-08 09:51 | Nephrology Progress Note ---
Date of Encounter: 11/08/17 Time of Encounter: 09:20 - Assessment and Plan (1) ESRD (end stage renal disease) on dialysis Current Visit: Yes Status: Chronic Flu A on Tamiflu. Elevated Troponins, Cardiology on board. LHC today, ESRD- No HD today keeping MWF schedule. Subjective Principal diagnosis: NSTEMI Interval history: Laying quietly. NPO, LHC today. Denies chest pain. Objective - Vital Signs Vital signs: Vital Signs Temp Pulse Resp BP Pulse Ox 11/08/17 09:15 98 11/08/17 09:08 61 11/08/17 06:52 97.7 F 56 18 107/59 98 11/08/17 04:55 97.9 F 59 20 103/53 93 11/08/17 00:07 98.3 F 61 21 107/66 98 11/07/17 19:17 98.3 F 64 18 101/65 95 11/07/17 16:11 97.7 F 58 18 111/63 98 11/07/17 14:30 98.1 F 18 117/67 11/07/17 14:15 107/58 11/07/17 14:00 109/58 11/07/17 13:45 99/56 11/07/17 13:30 103/55 11/07/17 13:15 114/64 11/07/17 13:00 107/61 11/07/17 12:45 106/62 11/07/17 12:30 128/70 11/07/17 12:15 123/69 11/07/17 12:00 137/74 11/07/17 11:45 138/67 11/07/17 11:30 146/67 11/07/17 11:15 98.1 F 18 151/67 Intake and Output 11/07/17 11/08/17 11/08/17 23:59 07:59 15:59 Intake Total 590 / 590 185 / 185 Balance 590 / 590 185 / 185 Intake: IV Fluids 110 / 110 185 / 185 Heparin 25,000 UNIT/500 ML D5W 110 / 110 185 / 185 25,000 unit In 500 ml @ 14 UNIT /KG/HR 25.872 mls/hr IVC . [id number] [facility] Rx#:[id number] Oral 480 / 480 Other: Meal goldfish Percent of Meal Consumed 100% Stool Size Small Stool Consistency soft Stool Color Brown Pale # Bowel Movements 1 Weight 98.8 kg Blood Glucose* 129 110 Patient Weight 11/08/17 23:59 Weight 98.8 kg - General Appearance General appearance: Present: well-developed, well-nourished, appears started age EENT: Present: mucous membranes moist Neck: Present: no JVD Respiratory: Present: clear Cardiology: Present: no edema, regular rate, regular rhythm Gastrointestinal: Present: normoactive bowel sounds, no tenderness Integumentary: Present: warm and dry Neurologic: Present: alert and oriented x3 - Lab 11/07/17 02:01 11/08/17 08:32 Most recent lab results Calcium 8.5 mg/dL (8.6-10.3) L 11/08/17 08:32 Phosphorus 8.5 mg/dL (2.7-4.5) H 11/02/17 04:59 Magnesium 2.1 mg/dL (1.6-2.6) 11/02/17 04:59 Consult Discharge Plan - Plan Referrals: Eleazar Calhoun MD [Primary Care Provider] - 11/12/17 10:30 am (Please follow up as schedule...)
[2017-11-08 10:10] LABS: Basophils # 0.1 K/mcL (0.0-0.2); Eosinophils % 0.1 %; Hematocrit 37.5 % (35.3-44.9); Hemoglobin 12.1 g/dL (11.5-15.4); Immature Granulocytes % 3.8 % (0-4); Lymphocytes # 2.6 K/mcL (0.6-4.6); Lymphocytes % 32.1 %; Mean Corpuscular HGB Conc 32.3 g/dL (31.6-35.5); Mean Corpuscular Hemoglobin 31.3 pg (28.0-33.3); Mean Corpuscular Volume 96.9 fL (83.0-100.0); Mean Platelet Volume 10.4 fL (9.4-12.4); Monocytes # 0.7 K/mcL (0.0-1.3); Neutrophils # 4.4 K/mcL (1.6-8.9); Platelet Count 273 K/mcL (140-400); Red Blood Count 3.87 M/mcL (3.82-4.97)
[2017-11-08] MEDS ORDERED: ISOVUE-370 200 ML INFUS..BTL IV ONE (10:32)
[2017-11-08] MEDS ORDERED: *HR* Heparin 10,000 UNIT/10 ML VIAL ONE (10:32)
[2017-11-08] MEDS ORDERED: Nitroglycerin 1,000 MCG/10 ML VIAL IV ONE (10:32)
[2017-11-08] MEDS ORDERED: Heparin 1,000 UNITS/500 mL 500 ML ONE (10:32)
[2017-11-08] MEDS ORDERED: 0.9 % Sodium Chloride 1,000 ML ONE ×2 (10:32→10:42)
[2017-11-08] MEDS ORDERED: *HR* Midazolam HCl 2 MG/2 ML VIAL ONE (10:32)
--- NOTE | 2017-11-08 11:04 | Pre-Sedation Evaluation ---
Pre-sedation evaluation - Pre-sedation checklist Date of procedure: 11/08/17 Procedure: Heart catherization Recent Vitals: Last Vital Signs Temp 97.7 F 11/08/17 06:52 Pulse 61 11/08/17 09:08 Resp 18 11/08/17 06:52 BP 107/59 11/08/17 06:52 Pulse Ox 98 11/08/17 09:15 H&P (including ROS) documented in medical record: Yes Previous reaction to sedatives/anesthetics: No Dietary Status: NPO after Midnight Airway Assessment: Patient can open mouth completely, TMJ function normal Dentition: No loose teeth or bridges, dentures removed Possible difficult airway: No ASA Classification *see protocol: CLASS IV-Severe systemic disease/constant threat to pt's life Plan of Care: Pt appropriate candidate for procedure/moderate/conscious sedation , Risks/benefits of procedure/sedation discussed w/ patient/family, If not NPO; Risk of intake outweiged by necessity to perform procedure
[2017-11-08] MEDS: Insulin DETEMIR 100 UNIT/ML X5UNITS SQ SCH (11:39)
--- NOTE | 2017-11-08 12:05 | Invasive Diagnostic Lab Proc ---
Name: Vicky Madden Date of Study: 11/08/2017 Date: 1950 Ht: 66.1in Medical Record#: [id number] Age: 67 Wt: 205.03lb Gender: Female BSA: 2.02 Order #: [id number] BMI: 32.95 Physicians Procedure Physician: Milton Miller DO Referring MD: Valentin Calhoun MD Referring MD: Staff Name Position Time In Gentry Aguayo RN Keyseating Machine Set Up Operator 10:49 AM Khadar Bonilla RT (R) Monitor 10:49 AM Ginny Bonilla RT (R) Scrub 10:50 AM Camille Rodriguez RT Monitor 11:13 AM Indications Indication Non-Stemi Procedures Performed Procedure L HRT ARTERY/VENTRICLE ANGIO Pre-Procedure Checklist Informed consent is complete signed and on chart. H&P is on chart. ID band is on and ID verified with patient. Patient NPO for procedure The procedure was described for the patient and questions were answered. Blood Pressure: 114/72 ECG is on chart. Rhythm: Sinus Bradycardia Plan of Care Patient will tolerate the procedure without complications. Adequate level of comfort will be maintained. Hemodynamics will remain stable Patient will recover from procedure without complications. Respiratory function will be maintained. Cardiac rhythm will remain stable. Patient temperature will be maintained. Patient and/or family have verbalized understanding of the procedure. Patient Education Chief Complaint/Reason for Test: Cardiac Cath Developmental Category: Geriatric (65+ years) Developmentally Appropriate for Age: Yes Learning Barriers: None Education Needs: Procedure Education Method: Verbal Information Taught: Cardiac Cath Educational Evaluation: Able to repeat information Intravenous Access Time IV Size Location DC'd Fluid/Drip Rate Units RN 10:49 AM 22g 1" Patent On Arrival Lt Wrist 10:49 AM 20g 1 1/4" Patent On Arrival Lt Antecubital 0.9NaCl 25 ml/hr Gentry Aguayo RN Allergies bacitracin polymyxin B atorvastatin plastic neosporin, tape Neomycin Vital Signs Time BP (mmHg) HR (bpm) O2 Sat. RR (bpm) LOC 10:49 AM 114 / 72 56 97 % 16 5 = Fully awake and oriented or at pre-proc level 10:50 AM / % 5 = Fully awake and oriented or at pre-proc level 10:50 AM / % 5 = Fully awake and oriented or at pre-proc level 11:07 AM 135 / 68 55 96 % 18 11:12 AM 121 / 59 54 93 % 30 11:17 AM 104 / 58 53 94 % 19 11:22 AM 107 / 58 53 95 % 15 11:27 AM 100 / 55 53 94 % 19 11:32 AM 109 / 57 53 91 % 12 11:37 AM 119 / 60 52 94 % 21 11:42 AM 116 / 60 53 97 % 21 11:47 AM 106 / 59 51 96 % 14 11:52 AM 115 / 61 52 93 % 14 Procedural Medications Time Medication Dose Units Method Given By 10:59 AM Oxygen 2 L/min nasal cannula Gentry Aguayo RN 11:02 AM Oxygen 2 L/min nasal cannula Gentry Aguayo RN 11:05 AM Versed 2 mg Intravenous Gentry Aguayo RN 11:21 AM Lidocaine 2% 10 ml Subcutaneous Milton Miller DO ASA Classification: CLASS III- Severe systemic disease (i.e. prior AMI, diabetes with vascular complications, morbid obesity) Ngozi Score Preprocedure Postprocedure Activity 2- Moves 4 extremities sustained head lift Activity 2- Moves 4 extremities sustained head lift Circulation 2- SBP +/= 20 points of pre-anesthetic level Circulation 2- SBP +/= 20 points of pre-anesthetic level Consciousness 2- Awake and alert oriented x 3 Consciousness 2- Awake and alert oriented x 3 O2 Saturation 2- Able to maintain O2 satruation of 92% on room air O2 Saturation 2- Able to maintain O2 satruation of 92% on room air Respiratory 2- Able to deep breathe and cough well Respiratory 2- Able to deep breathe and cough well Total Score 10 Total Score 10 Contrast Agent: Isovue Diagnostic Contrast: 75 ml Total Contrast: 75 ml Fluoro Dose: 316 mGy Activated Clotting Time Time Seconds to Clot 11:38 AM 119 Procedure Log Time Note Enter By 10:49 AM Pt arrived to cheesemaking laborer 2 at 10:49 [email or web address] 10:49 AM Gentry Aguayo RN Position: Keyseating Machine Set Up Operator Time in: 10:49 [email or web address] 10:50 AM Khadar Bonilla RT (R) Position: Monitor Time in: 10:49 [email or web address] 10:50 AM Ginny Bonilla RT (R) Position: Scrub Time in: 10:50 [email or web address] 10:50 AM Patient charges- Angio tray pack, Navilyst 3mm J, Pulse Oximetry and ACIST tubing and transducer [email or web address] 10:50 AM Time: 10:50 Patient comfortable and pain free: Yes [email or web address] 10:50 AM Time: 10:50LOC: 5 = Fully awake and oriented or at pre-proc level [email or web address] 10:59 AM Physican paged/called 10:59. [email or web address] 10:59 AM Physican responded and notified patient is ready 10:59 [email or web address] 10:59 AM Physician arrived 10:59 [email or web address] 10:59 AM Meet and juan completed [email or web address] 10:59 AM Sign in performed according to hospital policy. [email or web address] 10:59 AM Procedure start 10:59 [email or web address] 11:00 AM Time: 10:59 Oxygen on at 2 L/min per nasal cannula by Gentry Aguayo RN [email or web address] 11:00 AM Time: 10:50 Patient comfortable and pain free: Yes [email or web address] 11:00 AM Time: 10:50LOC: 5 = Fully awake and oriented or at pre-proc level [email or web address] 11:00 AM Case Start 11:01 AM Physician arrived 11: [email or web address] 11:01 AM Meet and juan completed [email or web address] 11:01 AM Sign in performed according to hospital policy. [email or web address] 11:02 AM Procedure start 11: [email or web address] 11:02 AM ASA Class CLASS III- Severe systemic disease (i.e. prior AMI, diabetes with vascular complications, morbid obesity) [email or web address] 11:02 AM Time: 11:02 Oxygen on at 2 L/min per nasal cannula by Gentry Aguayo RN [email or web address] 11:03 AM Hair removed from procedure site in procedure lab using clippers. Bilateral groin prepped with Chloraprep by Ginny Bonilla (R), then patient was draped. Skin intact. [email or web address] 11:05 AM Time: 11:05 Versed 2 mg Intravenous Given by Gentry Aguayo RN [email or web address] 11:05 AM Vitals capture started with the following parameters, Patient=Adult, Interval=5 min, Initial Jdlovkel=357 mmHg, Deflation Rate=5 mmHg, Cuff placed on Right Arm 11:05 AM Recorded ECG: HR=55 Condition=Condition 1 11:05 AM Vitals capture stopped. 11:06 AM Vitals capture started with the following parameters, Patient=Adult, Interval=5 min, Initial Djrnhoyg=832 mmHg, Deflation Rate=5 mmHg, Cuff placed on Right Arm 11:07 AM Clinical Presentation: Non-STEMI [email or web address] 11:07 AM HR=55 bpm, ZFUF=329/68 mmhg, SpO2=96.0 %, Resp=18 B/min 11:12 AM HR=54 bpm, KMQQ=419/59 mmhg, SpO2=93.0 %, Resp=30 B/min 11:13 AM Camille Rodriguez RT Position: Monitor Time in: 11:13 to relieve Khadar Bonilla RT (R) [email or web address] 11:16 AM Pressure channel 2 zeroed. 11:17 AM HR=53 bpm, ERAZ=999/58 mmhg, SpO2=94.0 %, Resp=19 B/min 11:20 AM Time out performed according to hospital policy 11:21 AM Time: 11:21 10 ml Lidocaine 2% to right groin Subcutaneous Given by Milton Miller DO 11:22 AM HR=53 bpm, XIYS=549/58 mmhg, SpO2=95.0 %, Resp=15 B/min 11:23 AM Micro-Introducer Kit utilized for sheath placement [email or web address] 11:25 AM Access obtained by percutaneous puncture. 6Fr 10cm Terumo Fedora sheath placed in right Femoral artery. [id number] 11:25 AM 6Fr FR 4 catheter inserted over the wire [facility] 11:25 AM wire removed 11:26 AM Catheter selectively placed in left ventricle [email or web address] 11:26 AM Bolus angiogram of left Ventricle complete: [email or web address] 11:27 AM HR=53 bpm, SDCQ=328/55 mmhg, SpO2=94.0 %, Resp=19 B/min 11:27 AM Recorded Pressure: LV, HR=55, Condition=Condition 1 (Left Ventricle) LV 108/0/8 11:27 AM Recorded Pressure: LV, Ao, HR=54, Condition=Condition 1 (Left Ventricle) LV 110/4/9, (Aorta) Ao 91/31/62 11:28 AM Recorded Pressure: Ao, HR=55, Condition=Condition 1 (Aorta) Ao 80/41/55 11:28 AM catheter repositioned into RCA [email or web address] 11:28 AM RCA angiography performed in multiple views. [email or web address] 11:28 AM Catheter removed [email or web address] 11:28 AM 6Fr FL 4 catheter inserted over the wire [facility] 11:28 AM wire removed [email or web address] 11:28 AM LCA angiography performed in multiple views. [email or web address] 11:31 AM catheter removed [email or web address] 11:32 AM HR=53 bpm, YTHF=987/57 mmhg, SpO2=91.0 %, Resp=12 B/min 11:33 AM Procedure completed at 11:33 [email or web address] 11:34 AM Did you address GEREMIAS flow and Dominance? Yes [email or web address] 11:34 AM Sign out completed: Radiation Dose 315.73 mGy Fluoro Time: 2.1 Isovue 370 - 200ml contrast 75 ml given by Milton Miller DO. Complications: NoneCardiac Rehab Consult needed: NoConfirmed administered medications: Yes [email or web address] 11:34 AM Isovue 370 - 200ml,1 Bottle(s) used. [email or web address] 11:34 AM Estimated Blood Loss: minimal [email or web address] 11:34 AM Post ECG Sinus Bradycardia [email or web address] 11:34 AM Post Blood Pressure 109/57 [email or web address] 11:35 AM 11:34 Post Pulses Bilateral DP & PT 1+ [email or web address] 11:35 AM Information taught Cardiac Cath [email or web address] 11:35 AM Education needs Procedure, Plan of Care, and Responsibilities of Patient in Care [email or web address] 11:35 AM Learning barriers :None [email or web address] 11:35 AM Education Methods Verbal [email or web address] 11:35 AM Education evaluation Able to repeat information [email or web address] 11:35 AM Plavix, Effient or Brilinta given No [email or web address] 11:35 AM Delay to floor No [email or web address] 11:35 AM Family placed in consult room. [email or web address] 11:35 AM Complications: None [email or web address] 11:35 AM Fluoro Time: 2.1 [email or web address] 11:35 AM Isovue 370 - 200ml contrast 75 ml given by Milton Miller DO. [email or web address] 11:36 AM Radiation Dose 315.73 mGy [email or web address] 11:36 AM Lesion found in Mid Circumflex. Pre Stenosis: 40 Pre GEREMIAS Flow: [email or web address] 11:36 AM Coronary Dominance: right [email or web address] 11:36 AM Left Main Coronary Artery with 0% stenosis [email or web address] 11:36 AM Proximal Left Anterior Descending Coronary Artery with 0% stenosis. If graft is supplying this territory, 0 % stenosis. [email or web address] 11:36 AM Mid/Distal Left Anterior Descending Coronary Artery and diagonal branches with 0% stenosis. If graft is supplying this area, 0 % stenosis [email or web address] 11:36 AM Circumflex, Obtuse Marginal, Left Posterior Descending, and Left Posterolateral Coronary Arteries with 40 % stenosis. If graft is supplying this area, 0 % stenosis [email or web address] 11:36 AM Right Coronary, Right Posterior Descending Arteries with Right Posterolateral and Acute Marginal branches with 0 % stenosis. If graft is supplying this area, 0 % stenosis [email or web address] 11:36 AM Ramus with 0% stenosis. If graft is supplying this area, 0 % stenosis [email or web address] 11:37 AM HR=52 bpm, UTEJ=064/60 mmhg, SpO2=94.0 %, Resp=21 B/min 11:38 AM At 11:38 the ACT was 119 seconds. [email or web address] 11:41 AM Report given to Erin FITZGERALD Pt taken to Room #45. 11:41 [email or web address] 11:41 AM NIBP STAT measurement started. 11:42 AM HR=53 bpm, UXXA=889/60 mmhg, SpO2=97.0 %, Resp=21 B/min 11:47 AM HR=51 bpm, ONOR=775/59 mmhg, SpO2=96.0 %, Resp=14 B/min 11:52 AM HR=52 bpm, TFXI=443/61 mmhg, SpO2=93.0 %, Resp=14 B/min 11:54 AM Site status No bleeding/hematoma - Rt Groin as reported by Ginny Bonilla RT (R) at 11:54 [email or web address] 11:55 AM Opsite applied [email or web address] 11:55 AM [facility]: [facility] Complications Complication None None Hemodynamics Pressures Site Systolic/A Wave Diastolic/V Wave Mean LV 108 0 8 LV 110 4 9 AO 91 31 62 AO 80 41 55 Post Procedure Information Blood Pressure: 109/57 mmHg Rhythm: Sinus Bradycardia Post procedural instructions were given Site Checks Time Location Status Staff Sheath In? Note 11:54 AM Rt Groin No bleeding/hematoma Ginny Bonilla RT (R) Pulses Time Site Pre-Procedure Post-Procedure Note 11/08/2017 10:49:00 AM Bilateral DP & PT 1+ 11:34:00 AM Bilateral DP & PT 1+ Updated by Camille Rodriguez RT (R) on 11/08/2017 11:56:54 AM electronically signed on 11/08/2017 11:57:39 AM with status of Final
--- NOTE | 2017-11-08 13:43 | Event Note ---
Date of Encounter: 11/08/17 Time of Encounter: 13:40 - Cardiology Event Note Status post catheterization with no significant lesions, no intervention. We'll discontinue IV heparin drip. Resume Coumadin. Cardiology was signed off, we consult as needed, follow-up arranged. All questions answered.
--- NOTE | 2017-11-08 14:20 | Discharge Summary ---
Orders not resulted at time of discharge: Pending orders 11/07/17 11:53 CL Cardiac Catheterization [CL] Routine 11/09/17 04:00 PT/INR [Prothrombin Time INR] [COAG] AM 0400 11/10/17 04:00 PT/INR [Prothrombin Time INR] [COAG] AM 0400 Date of Encounter: 11/08/17 Time of Encounter: 14:16 - Discharge Diagnosis (1) NSTEMI (non-ST elevated myocardial infarction) Priority: Primary Status: Resolved (2) Chronic diastolic (congestive) heart failure Priority: Secondary Status: Chronic (3) ESRD (end stage renal disease) on dialysis Priority: Secondary Status: Chronic (4) Hypertension Priority: Secondary Status: Chronic Qualifiers: Hypertension type: essential hypertension Qualified Code(s): I10 - Essential (primary) hypertension (5) Hypertensive urgency Priority: Secondary Status: Resolved (6) Influenza A Priority: Secondary Status: Acute (7) Paroxysmal A-fib Priority: Secondary Status: Chronic (8) DVT prophylaxis Priority: Secondary Status: Acute Hospital course: Ms. Madden is a 67 year old female patient with history of end-stage renal disease, hypertension, paroxysmal atrial fibrillation, coronary artery disease was hospitalized here with shortness of breath and was diagnosed with influenza A. She also had elevation in her troponin. She was started on treatment with Tamiflu and placed on intravenous heparin. Cardiology was consulted. They recommended cardiac catheterization once her respiratory symptoms improved. Patient was monitored closely in the hospital during the rest of her stay here. She underwent hemodialysis per nephrology recommendations according to her usual schedule. She finally underwent left heart catheterization today and was found to have nonobstructive coronary artery disease. She has been recommended medical management and no stents were placed. She is stable to be taking discharged home today. She has completed Tamiflu course for her bronchitis and influenza. We will follow-up with her primary care provider and saw filer for further management As outpatient. During her stay here she has been hypoxic and has required supplemental oxygen. She was evaluated with a face-to- face examination today. Her room air sats were dropping to 88% even at rest. She would benefit from home oxygen and she is being prescribed for her. Patient did have uncontrolled hypertension with urgency earlier during her stay here. Her antihypertensive regimen has been adjusted accordingly. Discharge discussed with: patient, family, nurse - Time Spent with Patient Total time spent providing and/or coordinating discharge services: Greater than 30 minutes (35 min) - Discharge Medications Prescriptions: hydrALAZINE [HydrALAZINE] 25 mg PO BID #60 tablet Home Medications: Clopidogrel [Plavix] 75 mg PO DAILY 03/17/17 [History] Furosemide [Lasix] 40 mg PO BID 03/17/17 [History] Gabapentin [Neurontin] 100 mg PO TID 03/17/17 [History] Insulin Glargine,Hum.rec.anlog [Lantus Solostar] 18 - 20 unit SQ BID 03/17/17 [ History] Insulin LISPRO [Humalog] 4 - 16 unit SQ TIDWM 03/17/17 [History] Metoprolol XL (24 HR) Succ [Toprol Xl] 100 mg PO DAILY #30 tab.er.24h 03/22/17 [ Rx] Isosorbide MONOnitrate [Isosorbide Mononitrate ER] 120 mg PO DAILY 06/20/17 [ History] Quinine Sulfate [Qualaquin] 324 mg PO TID 06/20/17 [History] Aspirin 81 mg PO DAILY #30 tab.chew 06/21/17 [Rx] Allopurinol [Zyloprim 100 MG] 200 mg PO DAILY 07/24/17 [History] Calcium Acetate [Phos-LO] 1,334 mg PO TIDWM 07/24/17 [History] Amiodarone [Cordarone] 200 mg PO DAILY #30 tablet 09/22/17 [Rx] Albuterol Sulfate [Albuterol Inhaler] 2 puff IH Q6HR PRN 10/26/17 [History] Citalopram Hydrobromide [Citalopram HBr] 10 mg PO DAILY 10/26/17 [History] Warfarin [Coumadin] 7.5 mg PO 1800 10/26/17 [History] amLODIPine [Norvasc] 5 mg PO DAILY #30 tablet 10/28/17 [Rx] hydrALAZINE [HydrALAZINE] 25 mg PO BID #60 tablet 11/08/17 [Rx] Allergies/Adverse Reactions: 3 Allergy/AdvReac Type Severity Reaction Status Date / Time bacitracin Allergy Rash Verified 07/24/17 10:16 [From Neosporin ([id number]-acy-wltts)] Neomycin Allergy Rash Verified 07/24/17 10:16 [From Neosporin (agt-lal-iqchg)] polymyxin B Allergy Rash Verified 07/24/17 10:16 [From Neosporin (tps-mtn-fyccf)] atorvastatin AdvReac Cramping Verified 07/24/17 10:16 of the Muscles plastic Allergy Rash Uncoded 07/24/17 10:16 tape Allergy Rash Uncoded 07/24/17 10:16 Date of admission: 11/03/17 12:48 Primary care physician: Eleazar Calhoun MD Consults: 11/05/17 08:00 Consult to Dialysis [CONS] ONCE 11/07/17 10:30 Consult to Dialysis [CONS] ONCE Discharging clinician: Chyna Landin Anticipated date of discharge: 11/08/17 - Constitutional Vitals: Temp Pulse Resp BP Pulse Ox 97.4 F L 51 18 91/48 95 11/08/17 12:24 11/08/17 13:51 11/08/17 13:51 11/08/17 13:51 11/08/17 13:51 General appearance: Present: A&O X 3, pleasant, no acute distress, answers questions appropriately - Neck Neck exam general surgery: Present: supple, trachea midline. Absent: lymphadenopathy - Respiratory Respiratory exam: Present: CTAB. Absent: accessory muscle use, rales, rhonchi, wheezes - Cardiovascular Cardiovascular exam: Present: RRR, +S1, +S2. Absent: diastolic murmur, gallop, rubs, systolic murmur - GI/Abdominal GI/Abdominal exam: Present: normal bowel sounds, soft, no peritoneal signs. Absent: distended, tenderness - Extremities Exam Extremities exam: Present: warm, radial pulses palpable and symmetrical. Absent : calf tenderness, cyanotic, pedal edema - Neurological Exam Neurological exam: Present: CN II-XII intact, oriented X3, no focal deficits. Absent: facial droop, speech deficit - Skin Skin exam: Present: dry, intact - Patient Status Disposition: Home, Self-Care Condition: Good Functional capacity at discharge: independent ambulation Overall status at discharge: patient is progressing back to baseline - Discharge Instructions Instructions: Hydralazine (By mouth), Myocardial Infarction (DC), Heart Failure (DC), Atrial Fibrillation (DC), Chronic Hypertension (DC) Follow Up With: Eleazar Calhoun MD [Primary Care Provider] - 11/12/17 10:30 am (Please follow up as schedule...) Additional Instructions: Follow up with cardiology as scheduled - Diet and Activity Activity: increase activity as tolerated Diet: low fat, low cholesterol, low salt diet
[2017-11-08] MEDS ORDERED: 0.9 % Sodium Chloride 250 ML IVC ONE (14:48)
[2017-11-08 16:03] VITALS: BP 107/61
[2017-11-08] MEDS ORDERED: Warfarin perPT PO PRN (18:00)
[2017-11-08] MEDS ORDERED: *HR* Warfarin 7.5 MG TABLET PO ONE (18:00)
--- NOTE | 2017-11-09 07:59 | Electrocardiograph Report ---
[address] [place] [id number] Test Date: 2017-11-03 Pat Name: Vicky Madden Department: 112 Room: 2A45 Gender: F Twisting Frame Operator: DARIUS : 1950 Requested By: Margarito Gamez Order Number: [id number] Reading MD: Solis Rios DO Measurements Intervals [place] Rate: 59 P: 78 NC: 192 QRS: -38 QRSD: 117 T: 42 QT: 464 QTc: 463 Interpretive Statements SINUS BRADYCARDIA LEFT VENTRICULAR HYPERTROPHY AND ST-T CHANGES INFERIOR MYOCARDIAL INFARCTION, PROBABLY OLD POSSIBLE ANTEROSEPTAL MYOCARDIAL INFARCTION, OF INDETERMINATE AGE Electronically Signed On 11-09-2017 7:57:36 EST by Solis Rios DO
== END 2017-11-08 17:58 | disposition home or self-care (01) | DRG 280 ==
LOC: 2ANU 12:13 → EMEROO 12:13 → SUATTDRO 18:48 → 2ANU 19:25 → SUATTDRO 11-03 12:48
PROVIDERS: ADMIT Internal Medicine; ATTEND Internal Medicine

== ENCOUNTER 2017-12-19 09:18 | Inpatient (IN) ==
[2017-12-19] MEDS ORDERED: 0.9 % Sodium Chloride 500 ML IVC ONE (09:35)
--- NOTE | 2017-12-19 09:35 | Emergency Department Note ---
Disposition Clinical Impression: ESRD (end stage renal disease) on dialysis, Atrial fibrillation with rapid ventricular response, Troponin level elevated, Palpitations Disposition: Admitted As Inpatient Condition: Undetermined Referrals: Eleazar Calhoun MD [Primary Care Provider] - Forms: ED Satisfaction Letter Time of Disposition: 10:37 General Adult HPI - General Chief complaint: ED Arrhythmia/Palpitations Stated complaint: A-fib from dialysis Time Seen by Provider: 12/19/17 09:21 Source: patient, EMS Mode of arrival: EMS Limitations: no limitations Nursing Notes Reviewed: Yes Vital Signs Reviewed: Yes - History of Present Illness HPI Narrative: 67-year-old female with end-stage renal disease on dialysis with history of atrial fibrillation who does not regularly take her medicines arrives to the emergency department with generalized weakness, history of black and bloody stools over the course the past week, and a noted hemoglobin of 8 today at dialysis. She was noted to be tachycardic in the 140s at dialysis and transported here she was experiencing a heart rate in the 120s. She was experiencing generalized weakness. The patient states that she has a long history of atrial fibrillation. Patient is currently on warfarin therapy for her chronic atrial fibrillation. She denies any abdominal pain, vomiting. The patient denies any chest pain but is complaining of palpitations. The patient is on chronic oxygen at 2 L. She denies any unilateral leg swelling, hemoptysis , history of PE. Pain Scale: 0 - Related Data Home Medications Medication Instructions Recorded Confirmed Clopidogrel [Plavix] 75 mg PO DAILY 03/17/17 11/01/17 Furosemide [Lasix] 40 mg PO BID 03/17/17 11/01/17 Gabapentin [Neurontin] 100 mg PO TID 03/17/17 11/01/17 Insulin Glargine,Hum.rec.anlog 18 - 20 unit SQ BID 03/17/17 11/01/17 [Lantus Solostar] Insulin LISPRO [Humalog] 4 - 16 unit SQ TIDWM 03/17/17 11/01/17 Isosorbide MONOnitrate [Isosorbide 120 mg PO DAILY 06/20/17 11/01/17 Mononitrate ER] Quinine Sulfate [Qualaquin] 324 mg PO TID 06/20/17 11/01/17 Allopurinol [Zyloprim 100 MG] 200 mg PO DAILY 07/24/17 11/01/17 Calcium Acetate [Phos-LO] 1,334 mg PO TIDWM 07/24/17 11/01/17 Albuterol Sulfate [Albuterol 2 puff IH Q6HR PRN 10/26/17 11/01/17 Inhaler] Citalopram Hydrobromide 10 mg PO DAILY 10/26/17 11/01/17 [Citalopram HBr] Warfarin [Coumadin] 7.5 mg PO 1800 10/26/17 11/01/17 Previous Rx's Medication Instructions Recorded Metoprolol XL (24 HR) Succ [Toprol 100 mg PO DAILY #30 tab.er.24h 03/22/17 Xl] Aspirin 81 mg PO DAILY #30 tab.chew 06/21/17 Amiodarone [Cordarone] 200 mg PO DAILY #30 tablet 09/22/17 amLODIPine [Norvasc] 5 mg PO DAILY #30 tablet 10/28/17 hydrALAZINE [HydrALAZINE] 25 mg PO BID #60 tablet 11/08/17 Allergies Allergy/AdvReac Type Severity Reaction Status Date / Time bacitracin Allergy Rash Verified 07/24/17 10:16 [From Neosporin ([id number])] Neomycin Allergy Rash Verified 07/24/17 10:16 [From Neosporin ([id number])] polymyxin B Allergy Rash Verified 07/24/17 10:16 [From Neosporin ([id number])] atorvastatin AdvReac Cramping Verified 07/24/17 10:16 of the Muscles plastic Allergy Rash Uncoded 07/24/17 10:16 tape Allergy Rash Uncoded 07/24/17 10:16 All systems ED: reviewed and negative except as stated. Constitutional: Reports: weakness. Denies: fever, chills ENT ED: Denies: congestion Cardiovascular: Reports: palpitations. Denies: chest pain Respiratory: Denies: cough, dyspnea Gastrointestinal: Reports: nausea, melena, hematochezia. Denies: abdominal pain , vomiting, diarrhea, constipation, hematemesis Genitourinary: Denies: urgency, dysuria Musculoskeletal: Denies: back pain, arthralgia, myalgia Integumentary: Denies: rash Neurological: Denies: headache, weakness, numbness Past Medical History - Past Medical History Attestation: Yes The following information was validated with the patient. Source: patient Medical history: Reports: atrial fibrillation, CHF, coronary artery disease, diabetes, dialysis, hypertension, myocardial infarction, renal disease Surgical history: Reports: angioplasty/stent, cholecystectomy, hysterectomy, other Psychiatric history: Reports: anxiety PROGRAM ENGAGEMENT DIRECTOR history: Reports: no PROGRAM ENGAGEMENT DIRECTOR history - Social History Smoking Status: Never smoker Smokeless Tobacco Status: No Alcohol use: Reports: none Drug use: Reports: none Physical Exam - General Limitations: no limitations General appearance: alert, in no apparent distress - Head Head exam: atraumatic, normocephalic, normal inspection - Eye Eye exam: Present: normal appearance, PERRL, EOMI - ENT ENT exam: normal exam, normal oropharynx, mucous membranes moist - Neck Neck exam: Present: normal inspection, full ROM, trachea midline - Chest Chest inspection: Present: normal inspection, symmetric chest wall rise - Respiratory Respiratory exam: Present: other (Coarse breath sounds bilaterally) - Cardiovascular Cardiovascular exam: Present: normal rhythm, tachycardia, normal heart sounds - Abdominal Exam Abdominal exam: Present: soft, Non-Tender. Absent: tenderness, distention, guarding, rebound, rigidity - Extremities Exam Extremities exam: Present: normal inspection, full ROM. Absent: tenderness, pedal edema - Neurological Exam Neurological exam: Present: alert, oriented X3 - Skin Skin exam: Present: warm, dry, intact, normal color Course Vital Signs Temperature 97 F L 12/19/17 09:20 Pulse Rate 148 12/19/17 09:20 Respiratory Rate 18 12/19/17 09:20 Blood Pressure 139/86 12/19/17 09:20 O2 Sat by Pulse Oximetry 95 12/19/17 09:20 Temperature 97 F L 12/19/17 09:20 Pulse Rate 124 12/19/17 10:15 Respiratory Rate 18 12/19/17 10:15 Blood Pressure 98/70 12/19/17 10:15 O2 Sat by Pulse Oximetry 99 12/19/17 10:15 Oxygen Delivery Oxygen Delivery Nasal Cannula Medical Decision Making - MDM Narrative Medical decision making narrative: Workup in the emergency department demonstrates a mildly elevated troponin. The patient has had higher troponins in the past and is likely secondary to end- stage renal disease but patient's troponin will be trended. In addition the patient's hemoglobin was 9.2 which is up from 8.0 at dialysis facility. This is likely secondary to hemoconcentration associated with the patient's hemodialysis. The patient's heart rate has responded to fluids as well as a low Cardizem drip. After receiving the fluids her heart rate has dropped into the 1 teens to 120s. The patient is resting comfortably at this time. She is still on nasal cannula oxygen which is baseline for her. She denies any other complaints at this time. We will admit the patient to the hospital at this time. The patient made aware and agrees to plan of care. No further questions or concerns noted at this time. Patient was accepted to the hospital by Dr. Landin. - Medical Records Medical records reviewed: Yes I reviewed the patient's medical records. - Lab Data Lab results reviewed: Yes I reviewed the patient's lab results. Result diagrams: 12/19/17 09:21 12/19/17 09:21 Lab Results 12/19/17 12/19/17 12/19/17 Range/Units 09:21 09:21 09:21 WBC 8.7 (4.3-11.1) K/mcL RBC 2.80 L (3.82-4.97) M/mcL Hgb 9.2 L (11.5-15.4) g/dL Hct 28.1 L (35.3-44.9) % MCV 100.4 H (83.0-100.0) fL MCH 32.9 (28.0-33.3) pg MCHC 32.7 (31.6-35.5) g/dL RDW 16.3 H (11.5-14.5) % Plt Count 270 (140-400) K/mcL MPV 9.3 L (9.4-12.4) fL Immature Gran % 1.0 (0-4) % Seg Neutrophils % 76.2 % Lymphocytes % 15.8 % Monocytes % 4.7 % Eosinophils % 1.8 % Basophils % 0.5 % Neutrophils # 6.6 (1.6-8.9) K/mcL Lymphocytes # 1.4 (0.6-4.6) K/mcL Monocytes # 0.4 (0.0-1.3) K/mcL Eosinophils # 0.2 (0.0-0.6) K/mcL Basophils # 0.0 (0.0-0.2) K/mcL PT 24.8 H (9.4-12.1) Seconds INR 2.3 APTT 73.4 H (26.0-36.0) Seconds Sodium 136 (136-145) mEq/L Potassium 3.9 (3.5-5.1) mEq/L Chloride 97 L (98-107) mEq/L Carbon Dioxide 27 (23-29) mEq/L BUN 18 (8-23) mg/dL Creatinine 2.93 H (0.60-1.20) mg/dL Est GFR ( Amer) 19 L (> 60) Est GFR (Non-Af Amer) 16 L (> 60) BUN/Creatinine Ratio 6 (6-26) Glucose 105 (70-105) mg/dL Calculated Osmolality 284 (280-300) Calcium 8.6 (8.6-10.3) mg/dL Troponin I 0.13 H* (< 0.04) ng/mL Blood Type Antibody Screen 12/19/17 Range/Units 09:30 WBC (4.3-11.1) K/mcL RBC (3.82-4.97) M/mcL Hgb (11.5-15.4) g/dL Hct (35.3-44.9) % MCV (83.0-100.0) fL MCH (28.0-33.3) pg MCHC (31.6-35.5) g/dL RDW (11.5-14.5) % Plt Count (140-400) K/mcL MPV (9.4-12.4) fL Immature Gran % (0-4) % Seg Neutrophils % % Lymphocytes % % Monocytes % % Eosinophils % % Basophils % % Neutrophils # (1.6-8.9) K/mcL Lymphocytes # (0.6-4.6) K/mcL Monocytes # (0.0-1.3) K/mcL Eosinophils # (0.0-0.6) K/mcL Basophils # (0.0-0.2) K/mcL PT (9.4-12.1) Seconds INR APTT (26.0-36.0) Seconds Sodium (136-145) mEq/L Potassium (3.5-5.1) mEq/L Chloride (98-107) mEq/L Carbon Dioxide (23-29) mEq/L BUN (8-23) mg/dL Creatinine (0.60-1.20) mg/dL Est GFR ( Amer) (> 60) Est GFR (Non-Af Amer) (> 60) BUN/Creatinine Ratio (6-26) Glucose (70-105) mg/dL Calculated Osmolality (280-300) Calcium (8.6-10.3) mg/dL Troponin I (< 0.04) ng/mL Blood Type B POSITIVE Antibody Screen NEGATIVE - Radiology Data Radiology results reviewed: Yes I reviewed the patient's radiology results. Chest X-Ray 12/19/17 09:21 IMPRESSION: Cardiomegaly with mild central vascular congestion. No acute cardiopulmonary process otherwise seen. D/ / Mc Stone MD / Mc Stone MD Interpreting Provider: Mc Stone MD - EKG Data EKG #1 EKG attestation: Yes I reviewed and interpreted this EKG. EKG results narrative: Heart rate 127 drinks per minute. Atrial fibrillation. RVR noted. No ST elevation but possible ST depression but difficult to assess due to rate. Morphology is similar to EKG from 11/03/2017. Attestation Statement - Attestation Attestation: I, Barrington Walton DO, examined this patient [id number] and my medical decision-making was reviewed with Magy Zhang DO, Resident Physician. I agree with the documented findings, disposition and treatment plan as described except to the extent set forth below. Please see my progress notes for details.
[2017-12-19 09:53] LABS: Basophils % 0.5 %; Eosinophils # 0.2 K/mcL (0.0-0.6); Eosinophils % 1.8 %; Hematocrit 28.1 % (35.3-44.9); Hemoglobin 9.2 g/dL (11.5-15.4); Lymphocytes # 1.4 K/mcL (0.6-4.6); Lymphocytes % 15.8 %; Mean Corpuscular HGB Conc 32.7 g/dL (31.6-35.5); Mean Corpuscular Hemoglobin 32.9 pg (28.0-33.3); Mean Corpuscular Volume 100.4 fL (83.0-100.0); Mean Platelet Volume 9.3 fL (9.4-12.4); Monocytes # 0.4 K/mcL (0.0-1.3); Monocytes % 4.7 %; Neutrophils # 6.6 K/mcL (1.6-8.9); Platelet Count 270 K/mcL (140-400); Red Cell Distribution Width 16.3 % (11.5-14.5); Segmented Neutrophils % 76.2 %
[2017-12-19 10:00] LABS: INR 2.3; Prothrombin Time 24.8 Seconds (9.4-12.1)
[2017-12-19 10:02] LABS: Activated Partial Thrombo Time 73.4 Seconds (26.0-36.0)
--- NOTE | 2017-12-19 10:05 | Emergency Department Note ---
Disposition Clinical Impression: ESRD (end stage renal disease) on dialysis, Atrial fibrillation with rapid ventricular response, Troponin level elevated, Palpitations Disposition: Admitted As Inpatient Condition: Fair Referrals: Eleazar Calhoun MD [Non-Partnered Physician] - Forms: ED Satisfaction Letter Time of Disposition: 10:37 General Adult HPI - General Chief complaint: ED Arrhythmia/Palpitations Stated complaint: A-fib from dialysis Time Seen by Provider: 12/19/17 09:21 Source: patient, EMS Mode of arrival: EMS Limitations: no limitations - History of Present Illness Pain Scale: 0 - Related Data Home Medications Medication Instructions Recorded Confirmed Clopidogrel [Plavix] 75 mg PO DAILY 03/17/17 11/01/17 Furosemide [Lasix] 40 mg PO BID 03/17/17 11/01/17 Gabapentin [Neurontin] 100 mg PO TID 03/17/17 11/01/17 Insulin Glargine,Hum.rec.anlog 18 - 20 unit SQ BID 03/17/17 11/01/17 [Lantus Solostar] Insulin LISPRO [Humalog] 4 - 16 unit SQ TIDWM 03/17/17 11/01/17 Isosorbide MONOnitrate [Isosorbide 120 mg PO DAILY 06/20/17 11/01/17 Mononitrate ER] Quinine Sulfate [Qualaquin] 324 mg PO TID 06/20/17 11/01/17 Allopurinol [Zyloprim 100 MG] 200 mg PO DAILY 07/24/17 11/01/17 Calcium Acetate [Phos-LO] 1,334 mg PO TIDWM 07/24/17 11/01/17 Albuterol Sulfate [Albuterol 2 puff IH Q6HR PRN 10/26/17 11/01/17 Inhaler] Citalopram Hydrobromide 10 mg PO DAILY 10/26/17 11/01/17 [Citalopram HBr] Warfarin [Coumadin] 7.5 mg PO 1800 10/26/17 11/01/17 Previous Rx's Medication Instructions Recorded Metoprolol XL (24 HR) Succ [Toprol 100 mg PO DAILY #30 tab.er.24h 03/22/17 Xl] Aspirin 81 mg PO DAILY #30 tab.chew 06/21/17 Amiodarone [Cordarone] 200 mg PO DAILY #30 tablet 09/22/17 amLODIPine [Norvasc] 5 mg PO DAILY #30 tablet 10/28/17 hydrALAZINE [HydrALAZINE] 25 mg PO BID #60 tablet 11/08/17 Allergies Allergy/AdvReac Type Severity Reaction Status Date / Time bacitracin Allergy Rash Verified 07/24/17 10:16 [From Neosporin ([id number])] Neomycin Allergy Rash Verified 07/24/17 10:16 [From Neosporin ([id number])] polymyxin B Allergy Rash Verified 07/24/17 10:16 [From Neosporin ([id number])] atorvastatin AdvReac Cramping Verified 07/24/17 10:16 of the Muscles plastic Allergy Rash Uncoded 07/24/17 10:16 tape Allergy Rash Uncoded 07/24/17 10:16 Constitutional: Reports: weakness. Denies: fever, chills ENT ED: Denies: congestion Cardiovascular: Reports: palpitations. Denies: chest pain Respiratory: Denies: cough, dyspnea Gastrointestinal: Reports: nausea, melena, hematochezia. Denies: abdominal pain , vomiting, diarrhea, constipation, hematemesis Genitourinary: Denies: urgency, dysuria Musculoskeletal: Denies: back pain, arthralgia, myalgia Integumentary: Denies: rash Neurological: Denies: headache, weakness, numbness Past Medical History - Past Medical History Medical history: Reports: atrial fibrillation, CHF, coronary artery disease, diabetes, dialysis, hypertension, myocardial infarction, renal disease Surgical history: Reports: angioplasty/stent, cholecystectomy, hysterectomy, other Psychiatric history: Reports: anxiety MEDICAL EQUIPMENT SALES history: Reports: no 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 EQUIPMENT SALES 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 - Social History Smoking Status: Never smoker Smokeless Tobacco Status: No Alcohol use: Reports: none Drug use: Reports: none Physical Exam - General Limitations: no limitations General appearance: alert, in no apparent distress Course Vital Signs Temperature 97 F L 12/19/17 09:20 Pulse Rate 148 12/19/17 09:20 Respiratory Rate 18 12/19/17 09:20 Blood Pressure 139/86 12/19/17 09:20 O2 Sat by Pulse Oximetry 95 12/19/17 09:20 Temperature 97 F L 12/19/17 09:20 Pulse Rate 124 12/19/17 10:15 Respiratory Rate 18 12/19/17 10:15 Blood Pressure 98/70 12/19/17 10:15 O2 Sat by Pulse Oximetry 99 12/19/17 10:15 Oxygen Delivery Oxygen Delivery Nasal Cannula Medical Decision Making - Lab Data Result diagrams: 12/19/17 09:21 12/19/17 09:21 Lab Results 12/19/17 12/19/17 12/19/17 Range/Units 09:21 09:21 09:21 WBC 8.7 (4.3-11.1) K/mcL RBC 2.80 L (3.82-4.97) M/mcL Hgb 9.2 L (11.5-15.4) g/dL Hct 28.1 L (35.3-44.9) % MCV 100.4 H (83.0-100.0) fL MCH 32.9 (28.0-33.3) pg MCHC 32.7 (31.6-35.5) g/dL RDW 16.3 H (11.5-14.5) % Plt Count 270 (140-400) K/mcL MPV 9.3 L (9.4-12.4) fL Immature Gran % 1.0 (0-4) % Seg Neutrophils % 76.2 % Lymphocytes % 15.8 % Monocytes % 4.7 % Eosinophils % 1.8 % Basophils % 0.5 % Neutrophils # 6.6 (1.6-8.9) K/mcL Lymphocytes # 1.4 (0.6-4.6) K/mcL Monocytes # 0.4 (0.0-1.3) K/mcL Eosinophils # 0.2 (0.0-0.6) K/mcL Basophils # 0.0 (0.0-0.2) K/mcL PT 24.8 H (9.4-12.1) Seconds INR 2.3 APTT 73.4 H (26.0-36.0) Seconds Sodium 136 (136-145) mEq/L Potassium 3.9 (3.5-5.1) mEq/L Chloride 97 L (98-107) mEq/L Carbon Dioxide 27 (23-29) mEq/L BUN 18 (8-23) mg/dL Creatinine 2.93 H (0.60-1.20) mg/dL Est GFR ( Amer) 19 L (> 60) Est GFR (Non-Af Amer) 16 L (> 60) BUN/Creatinine Ratio 6 (6-26) Glucose 105 (70-105) mg/dL Calculated Osmolality 284 (280-300) Calcium 8.6 (8.6-10.3) mg/dL Troponin I 0.13 H* (< 0.04) ng/mL Blood Type Antibody Screen 12/19/17 Range/Units 09:30 WBC (4.3-11.1) K/mcL RBC (3.82-4.97) M/mcL Hgb (11.5-15.4) g/dL Hct (35.3-44.9) % MCV (83.0-100.0) fL MCH (28.0-33.3) pg MCHC (31.6-35.5) g/dL RDW (11.5-14.5) % Plt Count (140-400) K/mcL MPV (9.4-12.4) fL Immature Gran % (0-4) % Seg Neutrophils % % Lymphocytes % % Monocytes % % Eosinophils % % Basophils % % Neutrophils # (1.6-8.9) K/mcL Lymphocytes # (0.6-4.6) K/mcL Monocytes # (0.0-1.3) K/mcL Eosinophils # (0.0-0.6) K/mcL Basophils # (0.0-0.2) K/mcL PT (9.4-12.1) Seconds INR APTT (26.0-36.0) Seconds Sodium (136-145) mEq/L Potassium (3.5-5.1) mEq/L Chloride (98-107) mEq/L Carbon Dioxide (23-29) mEq/L BUN (8-23) mg/dL Creatinine (0.60-1.20) mg/dL Est GFR ( Amer) (> 60) Est GFR (Non-Af Amer) (> 60) BUN/Creatinine Ratio (6-26) Glucose (70-105) mg/dL Calculated Osmolality (280-300) Calcium (8.6-10.3) mg/dL Troponin I (< 0.04) ng/mL Blood Type B POSITIVE Antibody Screen NEGATIVE Critical Care Time Critical Care Time: Yes Total Critical Care Time: 35 Attestation: Critical care performed: Time is exclusive of separately billable procedures. Time includes: direct patient care, patient reassessment, coordination of patient care, interpretation of data (laboratory data, radiology data, and respiratory data), review of patient's medical records, medical consultation and documentation of patient care. Procedures included in critical care time: Procedures excluded from critical care time: Attestation Statement - Attestation Attestation: I, Barrington Walton DO, examined this patient [id number] and my medical decision-making was reviewed with Magy Zhang DO Resident Physician. I agree with the documented findings, disposition and treatment plan as described except to the extent set forth below. Please see my progress notes for details. 67-year-old female presents to the emergency room from dialysis for evaluation of atrial fibrillation with rapid ventricular response. Patient is also found to have anemia at that facility with a hemoglobin of 8.0. Patient has been feeling weak over the last several days. She describes some intermittent hematochezia as well as melena. She is on Coumadin. Patient on presentation is alert she is oriented she ambulated from the EMS got to the bed without any difficulty. Patient does not show any signs of trauma. Head is atraumatic pupils are equal and reactive mucous membranes are slightly dry at this time. Trachea is midline. Lungs are clear heart is irregular and tachycardic on auscultation. Abdomen is soft. Dialysis catheter site in the right arm appears to be stable with no bleeding. Patient moves all 4 extremities with purpose and has no acute signs of pitting edema or fluid overload based on physical exam. Patient will be evaluated with screening CBC chemistry type and screen coagulation studies EKG chest x-ray at this time. Patient also be provided with a single bolus of fluid here to see if that helps with her tachycardia and then if need be will be started on a Cardizem drip. Patient will require admission to the hospital for further definitive management. Possibly 35 minutes of critical care will be applied this patient's treatment course secondary to medical intervention evaluation and titration of the Cardizem drip for her atrial fibrillation with RVR. Patient otherwise is clinically stable at this point. Disposition pending the full workup and treatment course. See detailed documentation of the physical exam, medical intervention, medical decision-making and disposition of the resident physician' s note. 1000 Patient found to have a hemoglobin of 9.2 today. Most likely secondary to hemoconcentration. Patient's labs otherwise coming back at baseline presentation. Admission process to be completed once diltiazem drip is started and patient's heart rate has stabilized. No other emergent clinical intervention required at this point. 1035 Patient accepted by the hospitalist for definitive management. No other recommendations or concerns. Patient is otherwise hemodynamically stable and in good medical condition at the time of admission for definitive management
[2017-12-19 10:15] LABS: Calcium 8.6 mg/dL (8.6-10.3); Potassium 3.9 mEq/L (3.5-5.1)
[2017-12-19 10:20] LABS: Troponin I 0.13 ng/mL (< 0.04)
[2017-12-19] MEDS ORDERED: Naloxone 0.4 MG/ML INJ IVP PRN (13:04)
[2017-12-19] MEDS ORDERED: *HR* Dextrose 50 % in Water (Syg) 50 ML SYRINGE IVP PRN (13:04)
[2017-12-19] MEDS ORDERED: D5% in Water 1,000 ML IVC PRN (13:04)
[2017-12-19] MEDS ORDERED: Dextrose Gel 15 GM/37.5 ML TUBE PO PRN ×2 (13:04)
--- NOTE | 2017-12-19 13:22 | Internal Med History&Physical ---
Addendum entered and electronically signed by Chung Roblero 12/19/17 15:26: GI bleeding-Holding coumadin for now, recheck PT/INR in am -Continue Plavix- recent PTCA in to CX, and recent NSTEMI in 11/04. Consider holding if bleeding worsens Q6H&H Original Note: <Chung Roblero - Last Filed: 12/19/17 14:07> Date of Encounter: 12/19/17 Time of Encounter: 13:19 Internal Medicine - H&P: HPI Chief complaint: GI bleed Admitted From: Home Plans for Post Hospital Care: Home History of present illness: Ms. Madden is a 67 year old female with a PMH of atrial fibrillation, CHF, coronary artery disease, diabetes, dialysis, hypertension, myocardial infarction , and ESRD. She presents today from dialysis in A-fib RVR with a heart rate in the 120s. It was reported that while at dialysis her heart rate was up in the 160s. She reports that she does not regularly take her medication and that she is frequently in and out of A. fib. Additionally, she notes that she has been having some melena and bright red blood with her bowel movements for approximately the last week. She also reports some pain in her lower abdomen. She is on Plavix and Warfarin for A-fib and CAD. She notes that since the bleeding began she has been feeling fatigued and has had increasing shortness of breath with activity. She is wearing 2L NC at home intermittently PRN but throughout the last week she reports that she has been requiring O2 per NC all day. She also admits to experiencing some tachycardia and palpitations as well. She denies any fevers, chills, chest pain, abdominal pain, N/V/D. Her workup today includes CBC, BMP, troponins, and CXR. CXR reveals mild central vascular congestion. CBC reveals anemia with HGB 9.2, Troponin elevation at 0.13. She is being admitted for further workup and evaluation. Past Med Surg Social Fam HX - Past Medical History Medical history: atrial fibrillation, CHF, coronary artery disease, diabetes, dialysis, hypertension, myocardial infarction, renal disease Psychiatric history: anxiety - Past Surgical History Surgical History: angioplasty/stent, cholecystectomy, hysterectomy, other - Social History Smoking Status: Never smoker Smokeless Tobacco Status: No Alcohol use: none Drug use: none - Family History Father Family Member Ethnicity: Non- Living Status: Hx Family Cardiac Disorders: Yes (ID) Mother Family Member Ethnicity: Non- Living Status: Hx Family Cardiac Disorders: Yes (HD) Hx Family Respiratory Disorders: No Hx Family Cancer: No Hx Family GI Disorders: No Hx Family Endocrine Disorder: Yes (DM) Hx Family Neuromuscular Disorders: No Hx Family Neurologic Disorders: No Hx Family HEENT Disorders: No Hx Family Autoimmune Disorders: No Brother Family Member Ethnicity: Non- Living Status: Still Living Hx Family Cardiac Disorders: Yes Hx Family Respiratory Disorders: Yes (sleep apnea) Hx Family Cancer: No Hx Family GI Disorders: No Hx Family Endocrine Disorder: Yes (DM) Hx Family Neuromuscular Disorders: No Hx Family Neurologic Disorders: No Hx Family HEENT Disorders: No Hx Family Autoimmune Disorders: No Sister Family Member Ethnicity: Non- Living Status: Hx Family Cardiac Disorders: Yes (HTN) Hx Family Respiratory Disorders: No Hx Family Cancer: Yes (Ovarian) Hx Family GI Disorders: No Hx Family Endocrine Disorder: Yes (DM) Hx Family Neuromuscular Disorders: No Hx Family Neurologic Disorders: No Hx Family HEENT Disorders: No Hx Family Autoimmune Disorders: No Internal Medicine - H&P: Meds Clopidogrel [Plavix] 75 mg PO DAILY 03/17/17 [History] Gabapentin [Neurontin] 100 mg PO TID 03/17/17 [History] Insulin Glargine,Hum.rec.anlog [Lantus Solostar] 18 - 20 unit SQ BID 03/17/17 [ History] Insulin LISPRO [Humalog] 4 - 16 unit SQ TIDWM 03/17/17 [History] Metoprolol XL (24 HR) Succ [Toprol Xl] 100 mg PO DAILY #30 tab.er.24h 03/22/17 [ Rx] Isosorbide MONOnitrate [Isosorbide Mononitrate ER] 120 mg PO DAILY 06/20/17 [ History] Aspirin 81 mg PO DAILY #30 tab.chew 06/21/17 [Rx] Allopurinol [Zyloprim 100 MG] 200 mg PO DAILY 07/24/17 [History] Calcium Acetate [Phos-LO] 1,334 mg PO TIDWM 07/24/17 [History] Amiodarone [Cordarone] 200 mg PO DAILY #30 tablet 09/22/17 [Rx] Albuterol Sulfate [Albuterol Inhaler] 2 puff IH Q6HR PRN 10/26/17 [History] Citalopram Hydrobromide [Citalopram HBr] 10 mg PO DAILY 10/26/17 [History] Warfarin [Coumadin] 7.5 mg PO MOTHFRSA 10/26/17 [History] hydrALAZINE [HydrALAZINE] 25 mg PO BID #60 tablet 11/08/17 [Rx] Furosemide [Lasix] 20 mg PO BID 12/19/17 [History] Warfarin [Coumadin] 5 mg PO SUTUWE 12/19/17 [History] 3 Allergy/AdvReac Type Severity Reaction Status Date / Time bacitracin Allergy Rash Verified 07/24/17 10:16 [From Neosporin ([id number])] Neomycin Allergy Rash Verified 07/24/17 10:16 [From Neosporin ([id number])] polymyxin B Allergy Rash Verified 07/24/17 10:16 [From Neosporin ([id number])] atorvastatin AdvReac Cramping Verified 07/24/17 10:16 of the Muscles plastic Allergy Rash Uncoded 07/24/17 10:16 tape Allergy Rash Uncoded 07/24/17 10:16 All Systems PM: A 10-system review of systems was performed and is negative for pertinent findings except as documented above in the HPI. Review of systems: REVIEW OF SYSTEMS GENERAL: Negative for any nausea, vomiting, fevers, chills, or weight loss. Positive for fatigue NEUROLOGIC: Negative for any blurry vision, blind spots, double vision, facial asymmetry, dysphagia, dysarthria, hemiparesis, hemisensory deficits, vertigo, ataxia. HEENT: Negative for any head trauma, neck trauma, neck stiffness, photophobia, phonophobia, sinusitis, rhinitis. CARDIAC: Negative for any chest pain, dyspnea on exertion, paroxysmal nocturnal dyspnea, peripheral edema. Positive for palpitations and tachycardia PULMONARY: Negative for any wheezing, COPD. Positive for shortness of breath, worse with exertion GASTROINTESTINAL: Negative for any diarrhea, nausea, vomiting. Positive for RLQ , LLQ abdominal pain described as dull and intermittent, melena and streaks of bright red blood with each BM GENITOURINARY: Negative for any dysuria, hematuria, incontinence. INTEGUMENTARY: Negative for any rashes, cuts, insect bites. RHEUMATOLOGIC: Negative for any joint pains, photosensitive rashes, history of vasculitis or kidney problems. HEMATOLOGIC: Negative for any abnormal bruising, frequent infections or bleeding. - Constitutional Vitals: Temp Pulse Resp BP Pulse Ox 97 F L 118 18 116/80 98 12/19/17 09:20 12/19/17 11:58 12/19/17 11:58 12/19/17 11:58 12/19/17 11:58 General appearance: Present: cooperative, A&O X 3, no acute distress, answers questions appropriately Exam: PHYSICAL EXAMINATION: GENERAL: The patient is an ill appearing female in no apparent distress. She is alert and oriented x3. HEENT: Head is normocephalic and atraumatic. Extraocular muscles are intact. Pupils are equal, round, and reactive to light and accommodation. NECK: Supple. No carotid bruits. No lymphadenopathy or thyromegaly. LUNGS: Clear to auscultation but diminished throughout AP&L. HEART: Irregularly irregular, ABDOMEN: Soft,and nondistended. Positive bowel sounds. No hepatosplenomegaly was noted. Mild tenderness to palpation to RLQ & LLQ EXTREMITIES: Without any cyanosis, clubbing, rash, lesions or edema. NEUROLOGIC: No facial droop or slurred speech Internal Med - H&P Results - Labs CBC & Chem 7: 12/19/17 09:21 12/19/17 09:21 - EKG Data -: EKG Interpreted by Myself - EKG Data EKG comments: A-fib with RVR 12/19/17 13:25 - Impressions Impressions Chest X-Ray 12/19/17 09:21 IMPRESSION: Cardiomegaly with mild central vascular congestion. No acute cardiopulmonary process otherwise seen. D/ / Mc Stone MD / Mc Stone MD Interpreting Provider: Mc Stone MD - Assessment and plan (1) GI bleeding Current Visit: Yes Status: Acute Assessment and plan: ASSESSMENT: Presents today with a 1-week h/o GI bleed. She is reporting both melena and hematochezia. She is on both Plavix and Warfarin. Denies any prior h/o GI bleeding but EGD 2016 shows a nonbleeding gastric diverticulum. No family hx of colon cancer. Last colonoscopy reported as 6-7 years ago with no acute findings. HGB stable today at 9.2, she remains hemodynamically stable DDX: - GI bleeding due to *Gastroenteritis *Gastritis *PUD *Hemorrhoids *Divericulitis *Esophageal varices *Stefani Wilcox syndrome *IBD PLAN: - Hold IVF for now as she is an ESRD patient; received 1L NS in the ED - clear liquid diet now then NPO after midnight - H/H now and q 6 hr - Type and screen 2 U PRBC - Protonix 40 mg IV QD/BID - GI consult-> EGD/Colonoscopy - Octeotride 50 mcg IV bolus & then 50 mcg/hr IV drip - O2 to keep SpO2 > 92% - CBCD, BMP, INR/PTT in AM - Compression stocking BLE for DVT prophylaxis - Qualifiers: Qualified Code(s): K92.2 - Gastrointestinal hemorrhage, unspecified (2) Atrial fibrillation with rapid ventricular response Current Visit: Yes Status: Acute Assessment and plan: Presents today with A-fib RVR rate in the 120's on arrival to the ED. She was reported to have a rate in the 160's at dialysis appointment. Cardizem gtt started in the ED and her HR is now in the 90's. -holding coumadin for now d/t acute GI bleed -Continue Cardizem gtt -Continuous tele -Continue amiodarone at home dose (3) ESRD (end stage renal disease) on dialysis Current Visit: Yes Status: Chronic Assessment and plan: H/o ESRD with M-W-F dialysis. She denies missing any HD appointments. -Consult nephrology-Spoke with Dr. Hurst who will see in consultation (4) Stented coronary artery Current Visit: No Status: Acute Assessment and plan: Continue BB, Aspirin, and Plavix (5) COPD (chronic obstructive pulmonary disease) Current Visit: No Status: Chronic Assessment and plan: stable, not in acute exacerbation Qualifiers: COPD type: unspecified COPD Qualified Code(s): J44.9 - Chronic obstructive pulmonary disease, unspecified (6) Diabetes Current Visit: No Status: Chronic Assessment and plan: Sliding scale insulin coverage Resume basal insulin at home dose Qualifiers: Diabetes mellitus type: type 2 Chronic kidney disease stage: on chronic dialysis Qualified Code(s): E11.22 - Type 2 diabetes mellitus with diabetic chronic kidney disease; N18.6 - End stage renal disease; Z99.2 - Dependence on renal dialysis; Z99.2 - Dependence on renal dialysis; Z99.2 - Dependence on renal dialysis; N18.6 - End stage renal disease; N18.6 - End stage renal disease ; N18.6 - End stage renal disease; Z79.4 - long-term (current) use of insulin; Z79.4 - human resources associate (current) use of insulin; Z79.4 - human resources associate (current) use of insulin; Z79.4 - long-term (current) use of insulin; Z99.2 - Dependence on renal dialysis (7) Hypertension Current Visit: No Status: Chronic Assessment and plan: Stable, continue to monitor. Resume home anti-HTN medications Qualifiers: Hypertension type: essential hypertension Qualified Code(s): I10 - Essential (primary) hypertension (8) Elevated troponin Current Visit: Yes Status: Acute Assessment and plan: She is noted to have a troponin elevation today with an initial troponin at 0.13. Upon review her troponin is chronically elevated and she is currently denying any CP or SOB at this time. No ischemic changes per EKG. Continue to trend troponin. Has a h/o A-fib. (9) DVT prophylaxis Current Visit: Yes Status: Acute Assessment and plan: EPCD's (10) CHF (congestive heart failure) Current Visit: Yes Status: Acute Assessment and plan: Stable, mild central vascular congestion, no respiratory distress Continue Lasix at home dose Qualifiers: Qualified Code(s): I50.9 - Heart failure, unspecified - Time Spent With Patient Total time spent is greater than 50% in coordination of care (as documented) at patient's floor/unit and/or counseling patient: Greater than 35 minutes <Farhat Landin T - Last Filed: 12/19/17 21:28> Date of Encounter: 12/19/17 Internal Medicine - H&P: HPI History of present illness: Ms. Madden is a 67 year old female All Systems PM: A 10-system review of systems was performed and is negative for pertinent findings except as documented above in the HPI. - Constitutional Vitals: Temp Pulse Resp BP Pulse Ox 98.5 F 100 18 123/63 98 12/19/17 19:46 12/19/17 19:46 12/19/17 19:46 12/19/17 19:46 12/19/17 20:21 Internal Med - H&P Results - Labs CBC & Chem 7: 12/19/17 18:21 12/19/17 09:21 Labs: Short CBC 12/19/17 Range/Units 18:21 Hgb 8.0 L (11.5-15.4) g/dL Hct 24.8 L (35.3-44.9) % Cardiac Enzymes 12/19/17 12/19/17 Range/Units 16:24 18:21 Troponin I 0.09 H* 0.10 H* (< 0.04) ng/mL - Attending Attestation The patient was independently examined and her availabe records , labs and tests were reviewed and I agree with the ASSOCIATE DIRECTOR DATA [employer] ANALYT[employer]'s A&P. She's scheduled for a colonoscopy and has begun the prep tonight. She had a dark stool earlier tonight. Serial H&H are ordered and her aspirin, Plavix and Warfarin were held. She had presented in A-FIB RVR and her rate is now controlled but still on the Cardizem drip. Cardiology was consulted. Nephrology was also contacted for inPt HD as she has ESRD and receives dialysis on . She c/o lower abdominal pain but denies chest pain or sob now. - Assessment and plan (1) Atrial fibrillation with rapid ventricular response Current Visit: Yes Status: Acute (2) Diabetes Current Visit: No Status: Chronic Qualifiers: Diabetes mellitus type: type 2 Chronic kidney disease stage: on chronic dialysis Qualified Code(s): E11.22 - Type 2 diabetes mellitus with diabetic chronic kidney disease; N18.6 - End stage renal disease; Z99.2 - Dependence on renal dialysis; Z99.2 - Dependence on renal dialysis; Z99.2 - Dependence on renal dialysis; N18.6 - End stage renal disease; N18.6 - End stage renal disease ; N18.6 - End stage renal disease; Z79.4 - human resources associate (current) use of insulin; Z79.4 - human resources associate (current) use of insulin; Z79.4 - human resources associate (current) use of insulin; Z79.4 - long-term (current) use of insulin; Z99.2 - Dependence on renal dialysis (3) DVT prophylaxis Current Visit: Yes Status: Acute (4) Stented coronary artery Current Visit: No Status: Acute (5) ESRD (end stage renal disease) on dialysis Current Visit: Yes Status: Chronic (6) COPD (chronic obstructive pulmonary disease) Current Visit: No Status: Chronic Qualifiers: COPD type: unspecified COPD Qualified Code(s): J44.9 - Chronic obstructive pulmonary disease, unspecified (7) Hypertension Current Visit: No Status: Chronic Qualifiers: Hypertension type: essential hypertension Qualified Code(s): I10 - Essential (primary) hypertension (8) GI bleeding Current Visit: Yes Status: Acute Qualifiers: GI bleed type/associated pathology: unspecified gastrointestinal hemorrhage type Qualified Code(s): K92.2 - Gastrointestinal hemorrhage, unspecified (9) Elevated troponin Current Visit: Yes Status: Acute (10) CHF (congestive heart failure) Current Visit: Yes Status: Acute Qualifiers: Qualified Code(s): I50.9 - Heart failure, unspecified - Time Spent With Patient Total time spent is greater than 50% in coordination of care (as documented) at patient's floor/unit and/or counseling patient:
--- NOTE | 2017-12-19 15:01 | Gastroenterology Consult Note ---
<Mc Day - Last Filed: 12/19/17 17:15> Date of Encounter: 12/19/17 Time of Encounter: 14:56 - Assessment and plan (1) GI bleeding Status: Acute Assessment and plan: HGB 9.2 on admission, was 12.1 on 11/08/17 Patient remains hemodynamically stable Monitor CBC q6h Type and screen complete Protonix 40 mg IV BID Patient reports inability to tolerate Nulytely in the past. Will proceed with Miralax bowel prep. Clear liquid diet, NPO after midnight Anticipate colonoscopy tomorrow Qualifiers: GI bleed type/associated pathology: unspecified gastrointestinal hemorrhage type Qualified Code(s): K92.2 - Gastrointestinal hemorrhage, unspecified (2) Anemia Status: Acute Qualifiers: Anemia type: unspecified type Qualified Code(s): D64.9 - Anemia, unspecified - Time Spent With Patient Total time spent is greater than 50% in coordination of care (as documented) at patient's floor/unit and/or counseling patient: GI History of Present Illness - Data of Consult Patient: new to practice Consult date: 12/19/17 Requesting Physician: Caroline French MD - Consult Narrative Reason for consult: GI bleed History of present illness: Ms. Madden is a 67 year old femalewith a PMH of ESRD, atrial fibrillation, coronary artery disease, CHF, diabetes, and hypertension who [facility] rate up to the 160s. She reports occasional non-compliance with ASA / Plavix/ Warfarin for A-fib and CAD s/p coronary stent placement and has been having melena and bright red blood in her bowel movements for approximately one week. She also reports pain in her lower abdomen, fatigue, and shortness of breath with activity since the bleeding began. She is wearing increasing her 2L home O2 requirement due to dyspnea. She denies fever, chills, chest pain, N/V/D, recent trauma, travel, or sick contacts. 07/24/[address] Rivera revealed gastric diverticulum and duodenitis and pathology report revealed duodenal mucosa with villous architecture and mild chronic inflammation in the lamina propria. Last colonoscopy reported as 6-7 years ago with no acute findings. No family hx of colon cancer. Colonoscopy: Last colonoscopy reported as 6-7 years ago with no acute findings EGD: 07/24/17 Dr. Rivera: EGD revealed gastric diverticulum and duodenitis Past Med Surg Social Fam HX - Past Medical History Medical history: atrial fibrillation, CHF, coronary artery disease, diabetes, dialysis, hypertension, myocardial infarction, renal disease Psychiatric history: anxiety - Past Surgical History Surgical History: angioplasty/stent, cholecystectomy, hysterectomy, other - Social History Smoking Status: Never smoker Smokeless Tobacco Status: No Alcohol use: none Drug use: none - Family History Father Family Member Ethnicity: Non- Living Status: Hx Family Cardiac Disorders: Yes ([place]) Mother Family Member Ethnicity: Non- Living Status: Hx Family Cardiac Disorders: Yes (HD) Hx Family Respiratory Disorders: No Hx Family Cancer: No Hx Family GI Disorders: No Hx Family Endocrine Disorder: Yes (DM) Hx Family Neuromuscular Disorders: No Hx Family Neurologic Disorders: No Hx Family HEENT Disorders: No Hx Family Autoimmune Disorders: No Brother Family Member Ethnicity: Non- Living Status: Still Living Hx Family Cardiac Disorders: Yes Hx Family Respiratory Disorders: Yes (sleep apnea) Hx Family Cancer: No Hx Family GI Disorders: No Hx Family Endocrine Disorder: Yes (DM) Hx Family Neuromuscular Disorders: No Hx Family Neurologic Disorders: No Hx Family HEENT Disorders: No Hx Family Autoimmune Disorders: No Sister Family Member Ethnicity: Non- Living Status: Hx Family Cardiac Disorders: Yes (HTN) Hx Family Respiratory Disorders: No Hx Family Cancer: Yes (Ovarian) Hx Family GI Disorders: No Hx Family Endocrine Disorder: Yes (DM) Hx Family Neuromuscular Disorders: No Hx Family Neurologic Disorders: No Hx Family HEENT Disorders: No Hx Family Autoimmune Disorders: No - Constitutional Vitals: Temp Pulse Resp BP Pulse Ox 97.9 F 93 18 117/68 98 12/19/17 14:05 12/19/17 14:05 12/19/17 14:05 12/19/17 14:05 12/19/17 14:05 General appearance: Present: cooperative, A&O X 3, no acute distress, obese, answers questions appropriately - Head Head exam: Present: atraumatic, normocephalic - Eye Eye exam: Present: normal appearance, sclera anicteric - ENT ENT exam: Present: mucous membranes moist, normal oropharynx - Neck Neck exam general surgery: Present: normal inspection, trachea midline - Respiratory Respiratory exam: Present: CTAB - Cardiovascular Cardiovascular exam: Present: irregular rhythm, +S1, +S2, systolic murmur - GI/Abdominal GI/Abdominal exam: Present: normal bowel sounds, soft, tenderness (RLQ, LLQ), no peritoneal signs - Rectal Rectal exam: Present: deferred - Extremities Exam Extremities exam: Present: warm. Absent: pedal edema - Neurological Exam Neurological exam: Present: no focal deficits - Psychiatric Psychiatric exam: Present: normal affect, normal mood - Skin Skin exam: Present: dry, intact, pallor, warm Results - Labs CBC & Chem 7: 12/19/17 09:21 12/19/17 09:21 Labs: Last Result Calcium 8.6 mg/dL (8.6-10.3) 12/19/17 09:21 Troponin I 0.13 ng/mL (< 0.04) H* 12/19/17 09:21 Entire Visit Hgb 9.2 g/dL (11.5-15.4) L 12/19/17 09:21 Hct 28.1 % (35.3-44.9) L 12/19/17 09:21 PT 24.8 Seconds (9.4-12.1) H 12/19/17 09:21 - ABG ABG results: PT/INR, D-dimer PT 24.8 Seconds (9.4-12.1) H 12/19/17 09:21 - Impressions ITS Impressions Chest X-Ray 12/19/17 09:21 IMPRESSION: Cardiomegaly with mild central vascular congestion. No acute cardiopulmonary process otherwise seen. D/ / Mc Stone MD / Mc Stone MD Interpreting Provider: Mc Stone MD Consult Discharge Plan - Plan Instructions: Atrial Fibrillation (DC), Chronic Hypertension (DC), Hypotension (DC), Hypotension (GEN), Anemia (GEN) Additional Instructions: Please follow up with your primary care physician within five days after your discharge from the hospital. Please follow up with your reproducer within five days after your discharge from the hospital. Please continue to hold your home dose of coumadin and plavix due to your recent GI bleed. Ask your PCP and reproducer about resuming these medications during your follow up appointment. Closely monitor your blood pressure at home. Hold your home blood pressure medications for systolic blood pressure less than 100. Prilosec 40mg twice a day has been added to your home medications. Please resume all other home medications as prescribed by your primary care physician. Continue your hemodialysis sessions as prescribed by your enterprise applications manager. Referrals: [facility] [Provider Group] (Office will call you will a follow up appointment when needed) Eleazar Calhoun MD [Primary Care Provider] - 01/04/18 11:00 am (Please follow up as schedule...) Prescriptions: Omeprazole [PriLOSEC] 40 mg PO BID #30 cap <Miguel Comer - Last Filed: 01/07/18 07:44> Date of Encounter: 12/19/17 - Time Spent With Patient Total time spent is greater than 50% in coordination of care (as documented) at patient's floor/unit and/or counseling patient: GI History of Present Illness - Data of Consult Requesting Physician: Caroline French MD - Consult Narrative History of present illness: Ms. Madden is a 67 year old female - Constitutional Vitals: Temp Pulse Resp BP Pulse Ox 97.9 F 67 17 128/63 98 12/26/17 16:41 12/26/17 16:41 12/26/17 16:41 12/26/17 16:41 12/26/17 16:41 Results - Labs CBC & Chem 7: 12/26/17 06:38 12/26/17 06:38 Labs: Last Result Calcium 7.3 mg/dL (8.6-10.3) L 12/26/17 06:38 Troponin I 0.10 ng/mL (< 0.04) H* 12/19/17 18:21 Entire Visit Hgb 8.1 g/dL (11.5-15.4) L 12/26/17 06:38 Hct 25.3 % (35.3-44.9) L 12/26/17 06:38 PT 15.1 Seconds (9.4-12.1) H 12/23/17 13:48 Total Bilirubin 0.4 mg/dL (0.3-1.0) 12/20/17 01:10 AST 13 Units/L (13-39) 12/20/17 01:10 ALT 9 Units/L (7-52) 12/20/17 01:10 - ABG ABG results: PT/INR, D-dimer PT 15.1 Seconds (9.4-12.1) H 12/23/17 13:48 - Attending Attestation With the 3 G Drop in Hemoglobin since Her Last Hemoglobin Was Checked Will Plan a Colonoscopy and Then Make Further Recommendations I examined this patient and my medical decision-making was reviewed with the Resident Physician. I agree with the documented findings, disposition and treatment plan as described except to the extent set forth below.
[2017-12-19] MEDS: Gabapentin 100 MG CAPSULE PO SCH ×2 (15:46→20:01)
[2017-12-19] MEDS: Furosemide 20 MG TABLET PO SCH (16:53)
[2017-12-19] MEDS: Insulin LISPRO 300 UNITS/3 ML VIAL SQ SCH ×2 (16:54→20:07)
[2017-12-19] MEDS: Calcium Acetate 667 MG CAPSULE PO SCH (16:54)
[2017-12-19] MEDS: Pantoprazole 40 MG VIAL IVP SCH (17:02)
[2017-12-19 18:34] LABS: Hematocrit 24.8 % (35.3-44.9)
[2017-12-19] MEDS ORDERED: Polyethylene Glycol 3350 255 GM POWDER PO ONE (19:00)
[2017-12-19] MEDS: Insulin DETEMIR 100 UNIT/ML X5UNITS SQ SCH (20:01)
[2017-12-19] MEDS: hydrALAZINE 25 MG TABLET PO SCH (20:01)
--- NOTE | 2017-12-19 20:47 | Event Note ---
Date of Encounter: 12/19/17 Time of Encounter: 20:[address] Dougherty with Cardiology. Cardiology will see the patient in consultation tomorrow. D/t active bleeding it is recommended per Dr. Dougherty to hold Coumadin and Plavix until cardiology can evaluation the patient tomorrow.
[2017-12-20 01:23] LABS: Basophils # 0.1 K/mcL (0.0-0.2); Basophils % 0.8 %; Eosinophils # 0.3 K/mcL (0.0-0.6); Eosinophils % 3.6 %; Hematocrit 25.4 % (35.3-44.9); Immature Granulocytes % 0.9 % (0-4); Lymphocytes # 1.7 K/mcL (0.6-4.6); Mean Corpuscular HGB Conc 31.5 g/dL (31.6-35.5); Mean Corpuscular Hemoglobin 31.9 pg (28.0-33.3); Mean Corpuscular Volume 101.2 fL (83.0-100.0); Mean Platelet Volume 9.2 fL (9.4-12.4); Monocytes # 0.5 K/mcL (0.0-1.3); Monocytes % 6.9 %; Neutrophils # 4.9 K/mcL (1.6-8.9); Platelet Count 252 K/mcL (140-400); Red Blood Count 2.51 M/mcL (3.82-4.97); Red Cell Distribution Width 16.6 % (11.5-14.5); Segmented Neutrophils % 65.8 %
[2017-12-20 01:28] LABS: INR 2.6; Prothrombin Time 28.8 Seconds (9.4-12.1)
[2017-12-20 01:47] LABS: Albumin 3.9 g/dL (3.5-5.7); Albumin/Globulin Ratio 1.2 (1.1-2.2); Bilirubin,Total 0.4 mg/dL (0.3-1.0); Calcium 8.3 mg/dL (8.6-10.3); Globulin 3.2 g/dL (2.4-3.5); Potassium 4.5 mEq/L (3.5-5.1); Total Protein 7.1 g/dL (6.4-8.9)
[2017-12-20] MEDS: Pantoprazole 40 MG VIAL IVP SCH ×3 (05:38→19:46)
[2017-12-20 07:31] LABS: Hemoglobin 7.8 g/dL (11.5-15.4)
[2017-12-20] MEDS: Insulin LISPRO 300 UNITS/3 ML VIAL SQ SCH ×4 (07:53→21:07)
[2017-12-20] MEDS: Metoprolol XL (24 HR) Succ 50 MG TAB.ER.24H PO SCH (08:32)
[2017-12-20] MEDS: Furosemide 20 MG TABLET PO SCH ×2 (08:32→17:37)
[2017-12-20] MEDS: *HR* Amiodarone 200 MG TABLET PO SCH (08:32)
[2017-12-20] MEDS: Isosorbide MONOnitrate (24 HR) 60 MG TAB.ER.24H PO SCH (08:32)
[2017-12-20] MEDS: Gabapentin 100 MG CAPSULE PO SCH ×3 (08:32→21:31)
[2017-12-20] MEDS: Aspirin 81 MG TAB.CHEW PO SCH (08:32)
[2017-12-20] MEDS: hydrALAZINE 25 MG TABLET PO SCH ×2 (08:32→21:07)
[2017-12-20] MEDS: Calcium Acetate 667 MG CAPSULE PO SCH ×3 (08:33→17:37)
--- NOTE | 2017-12-20 09:46 | Cardiology Consult Note ---
<VeraMargarito ward Ronan - Last Filed: 12/20/17 10:32> Date of Encounter: 12/20/17 Time of Encounter: 09:45 Assessment and Plan (1) Elevated troponin Current Visit: Yes Status: Acute Troponin 0.13, 0.09, 0.10--flat and adynamic in setting of GI bleed and ESRD on dialysis. Suspect demand ischemia, nondiagnostic for ACS. Not a candidate for cardiac rehab. Recent LHC 10/2017 mild disease, no intervention. Recent limited TTE 10/2017 EF preserved. No repeat TTE warranted. Anticipate cardiology sign off once seen and evaluated by Dr. Ortez. (2) CAD (coronary artery disease) Current Visit: Yes Status: Chronic Known hx of CAD and PCI, PTCA. Most recent intervention was PTCA 06/2017 to mLCx. Most recent [facility] 10/2017 mild 1 vessel CAD, no intervention. Given that pt is here with GI bleed and has had no PCI in the past year, stop Plavix. Would recommend 81mg ASA once okay from GI standpoint. Continue BB. Intolerant to statins. Pt denies chest pain. Qualifiers: Coronary Disease-Associated Artery/Lesion type: [place] artery [place] vs. transplanted heart: [place] heart Associated angina: with unstable angina Qualified Code(s): I25.110 - Atherosclerotic heart disease of [place] coronary artery with unstable angina pectoris (3) Paroxysmal A-fib Current Visit: Yes Status: Chronic 12 hr tele AVG HR 77. Currently on cardizem gtt at 2.5mg/hr. HR was 120 on admission EKG. HR 60s currently. Will d/c cardizem gtt. Continue Amiodarone and BB. Uptitrate BB if necessary for further rate control. [id number] 5 (Age, Female, HTN, DM, CAD). Was anticoagulated on Coumadin, but presents with GI bleed. Recommend stopping Coumadin. Pt is aware she is at increased CVA risk not on anticoagulation. (4) GI bleeding Current Visit: Yes Status: Acute Management per GI/primary team. Okay to stop Plavix and Coumadin. Recommend 81mg daily ASA once okay from GI standpoint. Qualifiers: GI bleed type/associated pathology: unspecified gastrointestinal hemorrhage type Qualified Code(s): K92.2 - Gastrointestinal hemorrhage, unspecified (5) Aortic stenosis Current Visit: Yes Status: Acute 2/6 FAHEEM noted on exam. Last full TTE 09/2017 EF preserved, moderate with peak and mean gradients 49 and 30mmHg respectively. Continue to follow as outpt. No repeat TTE warranted during current stay. Qualifiers: Cardiac valve disease etiology: etiology unspecified Qualified Code(s): I35.0 - Nonrheumatic aortic (valve) stenosis Discussion w patient/family: The assessment and plan as outlined above was discussed with the patient and/or family members who expressed understanding and agreement. All questions were answered. Thank you for involving us in the care of your patient. Please call with any questions. I will discuss all the above with Dr. Ortez and make changes as necessary. History of Present Illness Consult date: 12/20/17 Requesting physician: Chung Roblero Consult reason: A-Fib RVR, GI bleed, troponin Chief complaint: Bleeding History of present illness: Ms. Madden is a 67 year old female with a PMH of CAD s/p PCI, end-stage renal disease on dialysis, diabetes, essential HTN. She presented yesterday from dialysis in A-fib RVR with a heart rate in the 120s. It was reported that while at dialysis her heart rate was up in the 160s. She reports that she does not regularly take her medication and that she is frequently in and out of A. fib. Additionally, she notes that she has been having some melena and bright red blood with her bowel movements for approximately the last week. She also reports some pain in her lower abdomen. She is on Plavix and Warfarin for A- fib and CAD. She notes that since the bleeding began she has been feeling fatigued and has had increasing shortness of breath with activity. She is wearing 2L NC at home intermittently PRN but throughout the last week she reports that she has been requiring O2 per NC all day. She also admits to experiencing some tachycardia and palpitations as well. She denies chest pain. HGB found to be as low as 7.8--plans for colonoscopy today. Troponin 0.13, 0.09 , 0.10. Currently on cardizem gtt at 2.5mg/hr. Cardiology consulted for further recommendations. Of note, recent [facility] 10/2017 for NSTEMI with mild disease, patent stent, no intervention. Prior CV testing: [facility] 11/08/17: Mild 1 vessel CAD--40% mLCx. Previous stents in LCx patent. Limited TTE 11/02/17: EF 50-55%. TTE 09/2017: Moderate concentric LVH, 1.5cm. EF 55-60%. Possible mild phtn, moderate . Peak and mean gradients 49 and 30 respectively. Past Med Surg Social Fam HX - Past Medical History Medical history: atrial fibrillation, CHF, coronary artery disease, diabetes, dialysis, hypertension, myocardial infarction, renal disease Psychiatric history: anxiety - Past Surgical History Surgical History: angioplasty/stent, cholecystectomy, hysterectomy, other - Social History Smoking Status: Never smoker Smokeless Tobacco Status: No Alcohol use: none Drug use: none - Family History Father Family Member Ethnicity: Non- Living Status: Hx Family Cardiac Disorders: Yes (AR) Mother Family Member Ethnicity: Non- Living Status: Hx Family Cardiac Disorders: Yes (HD) Hx Family Respiratory Disorders: No Hx Family Cancer: No Hx Family GI Disorders: No Hx Family Endocrine Disorder: Yes (DM) Hx Family Neuromuscular Disorders: No Hx Family Neurologic Disorders: No Hx Family HEENT Disorders: No Hx Family Autoimmune Disorders: No Brother Family Member Ethnicity: Non- Living Status: Still Living Hx Family Cardiac Disorders: Yes Hx Family Respiratory Disorders: Yes (sleep apnea) Hx Family Cancer: No Hx Family GI Disorders: No Hx Family Endocrine Disorder: Yes (DM) Hx Family Neuromuscular Disorders: No Hx Family Neurologic Disorders: No Hx Family HEENT Disorders: No Hx Family Autoimmune Disorders: No Sister Family Member Ethnicity: Non- Living Status: Hx Family Cardiac Disorders: Yes (HTN) Hx Family Respiratory Disorders: No Hx Family Cancer: Yes (Ovarian) Hx Family GI Disorders: No Hx Family Endocrine Disorder: Yes (DM) Hx Family Neuromuscular Disorders: No Hx Family Neurologic Disorders: No Hx Family HEENT Disorders: No Hx Family Autoimmune Disorders: No Medications and Allergies Clopidogrel [Plavix] 75 mg PO DAILY 03/17/17 [History] Gabapentin [Neurontin] 100 mg PO TID 03/17/17 [History] Insulin Glargine,Hum.rec.anlog [Lantus Solostar] 18 - 20 unit SQ BID 03/17/17 [ History] Insulin LISPRO [Humalog] 4 - 16 unit SQ TIDWM 03/17/17 [History] Metoprolol XL (24 HR) Succ [Toprol Xl] 100 mg PO DAILY #30 tab.er.24h 03/22/17 [ Rx] Isosorbide MONOnitrate [Isosorbide Mononitrate ER] 120 mg PO DAILY 06/20/17 [ History] Aspirin 81 mg PO DAILY #30 tab.chew 06/21/17 [Rx] Allopurinol [Zyloprim 100 MG] 200 mg PO DAILY 07/24/17 [History] Calcium Acetate [Phos-LO] 1,334 mg PO TIDWM 07/24/17 [History] Amiodarone [Cordarone] 200 mg PO DAILY #30 tablet 09/22/17 [Rx] Albuterol Sulfate [Albuterol Inhaler] 2 puff IH Q6HR PRN 10/26/17 [History] Citalopram Hydrobromide [Citalopram HBr] 10 mg PO DAILY 10/26/17 [History] Warfarin [Coumadin] 7.5 mg PO MOTHFRSA 10/26/17 [History] hydrALAZINE [HydrALAZINE] 25 mg PO BID #60 tablet 11/08/17 [Rx] Furosemide [Lasix] 20 mg PO BID 12/19/17 [History] Warfarin [Coumadin] 5 mg PO SUTUWE 12/19/17 [History] 3 Allergy/AdvReac Type Severity Reaction Status Date / Time bacitracin Allergy Rash Verified 07/24/17 10:16 [From Neosporin ([id number])] Neomycin Allergy Rash Verified 07/24/17 10:16 [From Neosporin ([id number])] polymyxin B Allergy Rash Verified 07/24/17 10:16 [From Neosporin ([id number])] atorvastatin AdvReac Cramping Verified 07/24/17 10:16 of the Muscles plastic Allergy Rash Uncoded 07/24/17 10:16 tape Allergy Rash Uncoded 07/24/17 10:16 All Systems Review: The remainder of the systems were reviewed and are negative - Constitutional Constitutional: fatigue - Cardiovascular Cardiovascular: as per HPI, dyspnea on exertion, palpitations - Gastrointestinal Gastrointestinal: abdominal pain, melena Physical Examination Vital Signs, Last 4 Hours Temp Pulse Resp BP Pulse Ox 12/20/17 06:50 97.4 F L 69 18 126/67 97 Vital Signs Temp Pulse Resp BP Pulse Ox 12/20/17 06:50 97.4 F L 69 18 126/67 97 12/20/17 03:37 97.7 F 65 18 99/49 91 12/19/17 23:40 98.1 F 70 18 111/56 93 12/19/17 20:21 98 12/19/17 19:46 98.5 F 100 18 123/63 98 12/19/17 14:05 97.9 F 93 18 117/68 98 12/19/17 13:38 98 F 18 114/80 12/19/17 11:58 118 18 116/80 98 12/19/17 11:00 107 18 141/82 98 12/19/17 10:45 126 20 105/81 98 12/19/17 10:30 124 20 108/71 98 12/19/17 10:15 124 18 98/70 99 12/19/17 10:00 128 20 128/92 98 Intake and Output 12/19/17 12/20/17 12/20/17 23:59 07:59 15:59 Intake Total 117.4 / 117.4 45 / 45 0 / 0 Balance 117.4 / 117.4 45 / 45 0 / 0 Intake: IV Fluids 117.4 / 117.4 45 / 45 Cardizem 125 MG In 0.9 % Sodium 117.4 / 117.4 45 / 45 Chloride 100 ML @ 5 MG/HR 5 mls/hr IVC .Q24H [facility] Rx#: [id number] Oral 0 / 0 Other: Meal NPO Percent of Meal Consumed 0% Stool Size Moderate Stool Consistency liquid Stool Color Bright Red Blood # Bowel Movements 1 Weight 92.986 kg Blood Glucose* 136 91 Patient Weight 12/20/17 23:59 Weight 92.986 kg General: Conversant, No Apparent Distress HEENT: Atraumatic, Normocephaly, Mucus Membranes Moist Neck: No JVD, Normal carotid pulses Cardiac: Other (irregularly irregular, 2/6 FAHEEM) Lungs: Normal Breath Sounds, No Wheeze, Rales, Rhonchi Neuro: Alert and responsive, No focal deficits noted Abdomen: Soft, Non-Tender Skin: No rashes noted on visualized skin Musculoskeletal: No Chest Wall Tenderness Extremities: No Clubbing, No Cyanosis, No Edema, Normal Pulses Results 12/20/17 06:20 12/20/17 01:10 Lab Results 12/19/17 12/19/17 12/19/17 16:24 18:21 18:21 WBC Hgb 8.0 L Hct 24.8 L Plt Count INR Sodium Potassium Chloride Carbon Dioxide BUN Creatinine Glucose Calcium Total Bilirubin AST ALT Alkaline Phosphatase Troponin I 0.09 H* 0.10 H* 12/20/17 12/20/17 12/20/17 01:10 01:10 01:10 WBC 7.5 Hgb 8.0 L Hct 25.4 L Plt Count 252 INR 2.6 Sodium 134 L Potassium 4.5 Chloride 99 Carbon Dioxide 25 BUN 31 H Creatinine 4.56 H Glucose 123 H Calcium 8.3 L Total Bilirubin 0.4 AST 13 ALT 9 Alkaline Phosphatase 84 Troponin I 12/20/17 06:20 WBC Hgb 7.8 L Hct 25.0 L Plt Count INR Sodium Potassium Chloride Carbon Dioxide BUN Creatinine Glucose Calcium Total Bilirubin AST ALT Alkaline Phosphatase Troponin I Short CBC 12/20/17 12/20/17 12/19/17 Range/Units 06:20 01:10 18:21 WBC 7.5 (4.3-11.1) K/mcL Hgb 7.8 L 8.0 L 8.0 L (11.5-15.4) g/dL Hct 25.0 L 25.4 L 24.8 L (35.3-44.9) % Plt Count 252 (140-400) K/mcL Neutrophils # 4.9 (1.6-8.9) K/mcL 12/19/17 Range/Units 09:21 WBC 8.7 (4.3-11.1) K/mcL Hgb 9.2 L (11.5-15.4) g/dL Hct 28.1 L (35.3-44.9) % Plt Count 270 (140-400) K/mcL Neutrophils # 6.6 (1.6-8.9) K/mcL BMP 12/20/17 12/19/17 Range/Units 01:10 09:21 Sodium 134 L 136 (136-145) mEq/L Potassium 4.5 3.9 (3.5-5.1) mEq/L Chloride 99 97 L (98-107) mEq/L Carbon Dioxide 25 27 (23-29) mEq/L BUN 31 H 18 (8-23) mg/dL Creatinine 4.56 H 2.93 H (0.60-1.20) mg/dL Glucose 123 H 105 (70-105) mg/dL Calcium 8.3 L 8.6 (8.6-10.3) mg/dL Cardiac Enzymes 12/19/17 12/19/17 12/19/17 Range/Units 18:21 16:24 09:21 Troponin I 0.10 H* 0.09 H* 0.13 H* (< 0.04) ng/mL Liver Function 12/20/17 Range/Units 01:10 Total Bilirubin 0.4 (0.3-1.0) mg/dL AST 13 (13-39) Units/L ALT 9 (7-52) Units/L Alkaline Phosphatase 84 (34-104) Units/L Albumin 3.9 (3.5-5.7) g/dL Active Medications Albuterol Sulfate (Albuterol Inhaler) 2 puff IH [id number] PRN PRN Reason: Shortness Of Breath Stop: 06/20/18 16:01 Allopurinol (Zyloprim) 200 mg PO DAILY [facility] Stop: 06/21/18 09:01 Last Admin: 12/20/17 08:32 Dose: 200 mg Amiodarone HCl (Cordarone) 200 mg PO DAILY [facility] Stop: 06/21/18 09:01 Last Admin: 12/20/17 08:32 Dose: 200 mg Aspirin (Aspirin) 81 mg PO DAILY [facility] Stop: 06/21/18 09:01 Last Admin: 12/20/17 08:32 Dose: 81 mg Calcium Acetate (Phos-Lo) 1,334 mg PO TIDWM [facility] Stop: 06/20/18 17:01 Last Admin: 12/20/17 08:33 Dose: Not Given Clopidogrel Bisulfate (Plavix) 75 mg PO DAILY [facility] Stop: 06/21/18 09:01 Dextrose/Water (Dextrose 50% (Syg)) 25 ml IVP AD PRN PRN Reason: Hypoglycemia Stop: 06/20/18 13:05 Furosemide (Lasix) 20 mg PO BIDDIURETIC [facility] Stop: 06/20/18 17:01 Last Admin: 12/20/17 08:32 Dose: 20 mg Gabapentin (Neurontin) 100 mg PO TID [facility] Stop: 06/20/18 15:01 Last Admin: 12/20/17 08:32 Dose: 100 mg Glucagon (Glucagen) 1 mg IM ONCE PRN PRN Reason: Hypoglycemia Stop: 06/20/18 13:05 Glucose (Gluctose) 15 gm PO ONCE PRN PRN Reason: Hypoglycemia Stop: 06/20/18 13:05 Glucose (Gluctose) 30 gm PO ONCE PRN PRN Reason: Hypoglycemia Stop: 06/20/18 13:05 Hydralazine HCl (Hydralazine) 25 mg PO BID [facility] Stop: 06/20/18 21:01 Last Admin: 12/20/17 08:32 Dose: 25 mg Diltiazem HCl 125 mg/ Sodium (Chloride) 125 mls @ 5 mls/hr IVC .Q24H [facility]; 5 MG/ HR PRN Reason: Protocol Stop: 06/20/18 09:46 Last Titration: 12/20/17 03:30 Dose: 2.5 mg/hr, 2.5 mls/hr Dextrose (Dextrose 5%) 1,000 mls @ 100 mls/hr IVC .Q10H PRN PRN Reason: HYPOGLYCEMIA Stop: 06/20/18 13:05 Insulin Detemir (Levemir) 20 unit SQ BID [facility] Stop: 06/20/18 21:01 Last Admin: 12/19/17 20:01 Dose: 20 unit Insulin Human Lispro (Humalog) 0 units SQ HS [facility] PRN Reason: Protocol Stop: 06/20/18 21:01 Last Admin: 12/19/17 20:07 Dose: Not Given Insulin Human Lispro (Humalog) 0 units SQ TIDAC [facility] PRN Reason: Protocol Stop: 06/20/18 16:31 Last Admin: 12/20/17 07:53 Dose: Not Given Isosorbide Mononitrate (Imdur) 120 mg PO DAILY [facility] Stop: 06/21/18 09:01 Last Admin: 12/20/17 08:32 Dose: 120 mg Metoprolol Succinate (Toprol Xl) 100 mg PO DAILY [facility] Stop: 06/21/18 09:01 Last Admin: 12/20/17 08:32 Dose: 100 mg Naloxone HCl (Narcan) 0.4 mg IVP Q2MIN PRN PRN Reason: SEE COMMENTS Stop: 06/20/18 13:05 Pantoprazole Sodium (Protonix) 40 mg IVP Q12HR [facility] Stop: 06/20/18 18:01 Last Admin: 12/20/17 05:38 Dose: 40 mg - Imaging and Cardiology Echo: report reviewed Cardiac cath: report reviewed - EKG Interpretation EKG results cardiology: personally reviewed (A-Fib RVR, rate 120), other (12 hr tele AVG HR) Consult Discharge Plan - Plan Referrals: Eleazar Calhoun MD [Primary Care Provider] - 01/04/18 11:00 am (Please follow up as schedule...) <Marti Ortez - Last Filed: 12/20/17 16:27> Date of Encounter: 12/20/17 - Attending Attestation I have personally performed a face to face evaluation on this patient. I have reviewed and agree with the care plan. History and Exam by me shows: 67-year-old female with PCI in June 2017, atrial fibrillation on anticoagulation presents with a GI bleed. She has mild elevated troponins which are nonischemic in their pattern. She is on triple therapy aspirin, Plavix, Coumadin. We discussed her risks of stent thrombosis and CVA of both antiplatelet therapy and anticoagulation. Her hemoglobin has dropped significantly and currently is actively bleeding. She is scheduled for colonoscopy today. After discussing her risks benefits and alternatives she has agreed to stop all 3 blood thinners understanding her risk of increased stent thrombosis/CVA. Likely the patient can be restarted on Plavix and Coumadin alone with out aspirin once she has recovered from her GI bleed and is stable Assessment and Plan Discussion w patient/family: The assessment and plan as outlined above was discussed with the patient and/or family members who expressed understanding and agreement. All questions were answered. Thank you for involving us in the care of your patient. Please call with any questions. History of Present Illness History of present illness: Ms. Madden is a 67 year old female All Systems Review: The remainder of the systems were reviewed and are negative Physical Examination Vital Signs, Last 4 Hours Temp Pulse Resp BP Pulse Ox 12/20/17 16:00 97.7 F 69 18 91/55 98 Results 12/20/17 06:20 12/20/17 01:10 Lab Results 12/19/17 12/19/17 12/19/17 16:24 18:21 18:21 WBC Hgb 8.0 L Hct 24.8 L Plt Count INR Sodium Potassium Chloride Carbon Dioxide BUN Creatinine Glucose Calcium Total Bilirubin AST ALT Alkaline Phosphatase Troponin I 0.09 H* 0.10 H* 12/20/17 12/20/17 12/20/17 01:10 01:10 01:10 WBC 7.5 Hgb 8.0 L Hct 25.4 L Plt Count 252 INR 2.6 Sodium 134 L Potassium 4.5 Chloride 99 Carbon Dioxide 25 BUN 31 H Creatinine 4.56 H Glucose 123 H Calcium 8.3 L Total Bilirubin 0.4 AST 13 ALT 9 Alkaline Phosphatase 84 Troponin I 12/20/17 06:20 WBC Hgb 7.8 L Hct 25.0 L Plt Count INR Sodium Potassium Chloride Carbon Dioxide BUN Creatinine Glucose Calcium Total Bilirubin AST ALT Alkaline Phosphatase Troponin I
--- NOTE | 2017-12-20 13:53 | Internal Med Progress Note ---
Date of Encounter: 12/20/17 Time of Encounter: 10:40 - Assessment and plan (1) GI bleeding Current Visit: Yes Status: Acute Assessment and plan: Continues to have bright red bleeding per rectum. Hemoglobin levels are stable. Planned colonoscopy today. We will monitor vital signs and blood counts. Continue IV PPI. Hold Coumadin, Plavix. Cardiology recommends stopping Plavix at this time. If patient continues to have persistent bleeding and hemoglobin drops, will reverse INR. Currently INR is 2.6. High risk for complications. Qualifiers: GI bleed type/associated pathology: unspecified gastrointestinal hemorrhage type Qualified Code(s): K92.2 - Gastrointestinal hemorrhage, unspecified (2) Atrial fibrillation with rapid ventricular response Current Visit: Yes Status: Acute Assessment and plan: Improved. Heart rate is now well controlled. Continue amiodarone and Toprol. Coumadin held due to GI bleed. (3) Diabetes Current Visit: Yes Status: Chronic Assessment and plan: Well-controlled. Patient is nothing by mouth. Continue current insulin regimen. 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 Diabetes mellitus complication status: with kidney complications Diabetes mellitus complication detail: with chronic kidney disease Chronic kidney disease stage: on chronic dialysis Qualified Code(s) : E11.22 - Type 2 diabetes mellitus with diabetic chronic kidney disease; N18.6 - End stage renal disease; N18.6 - End stage renal disease; N18.6 - End stage renal disease; N18.6 - End stage renal disease; Z79.4 - computer terminal operator (current) use of insulin; Z79.4 - USP (current) use of insulin; Z79.4 - computer terminal operator ( current) use of insulin; Z79.4 - computer terminal operator (current) use of insulin; Z99.2 - Dependence on renal dialysis; Z99.2 - Dependence on renal dialysis; Z99.2 - Dependence on renal dialysis; Z99.2 - Dependence on renal dialysis (4) DVT prophylaxis Current Visit: Yes Status: Acute (5) Stented coronary artery Current Visit: Yes Status: Acute Assessment and plan: No chest pain. Cardiology following. Recommended to stop Plavix at this time as patient did not have PCI within the past year. Did have PTCA in June 2017 without any stent. (6) ESRD (end stage renal disease) on dialysis Current Visit: Yes Status: Chronic Assessment and plan: Nephrology consulted for dialysis needs. She will be dialyzed according to her usual schedule. (7) COPD (chronic obstructive pulmonary disease) Current Visit: Yes Status: Chronic Assessment and plan: Not in acute exacerbation. We will use bronchodilators as needed for symptomatic treatment. Qualifiers: COPD type: unspecified COPD Qualified Code(s): J44.9 - Chronic obstructive pulmonary disease, unspecified (8) Hypertension Current Visit: Yes Status: Chronic Assessment and plan: Blood pressure is well controlled at this time Qualifiers: Hypertension type: essential hypertension Qualified Code(s): I10 - Essential (primary) hypertension (9) Elevated troponin Current Visit: Yes Status: Acute Assessment and plan: likely chronic due to underlying coronary artery disease and ESRD. (10) CHF (congestive heart failure) Current Visit: Yes Status: Chronic Assessment and plan: Not in acute exacerbation. Continue medical management and volume management with dialysis. Qualifiers: Heart failure type: diastolic Heart failure chronicity: chronic Qualified Code(s): I50.32 - Chronic diastolic (congestive) heart failure - Time Spent With Patient Total time spent is greater than 50% in coordination of care (as documented) at patient's floor/unit and/or counseling patient: - Subjective Interval history: Patient feels tired but better than yesterday. No abdominal pain at this time. Has been nothing by mouth for planned endoscopy today. Has been having hematochezia. - Constitutional Vitals: Temp Pulse Resp BP Pulse Ox 97.3 F L 67 18 99/62 100 12/20/17 11:48 12/20/17 11:48 12/20/17 11:48 12/20/17 11:48 12/20/17 11:48 General appearance: Present: cooperative, A&O X 3, no acute distress, answers questions appropriately - Neck Neck exam general surgery: Present: supple, trachea midline. Absent: lymphadenopathy - Respiratory Respiratory exam: Present: CTAB. Absent: accessory muscle use, rales, rhonchi, wheezes - Cardiovascular Cardiovascular exam: Present: RRR, +S1, +S2. Absent: diastolic murmur, gallop, rubs, systolic murmur - GI/Abdominal GI/Abdominal exam: Present: normal bowel sounds, soft, no peritoneal signs. Absent: distended, tenderness - Extremities Exam Extremities exam: Present: warm, radial pulses palpable and symmetrical. Absent : calf tenderness, cyanotic, pedal edema - Neurological Exam Neurological exam: Present: alert, CN II-XII intact, oriented X3. Absent: facial droop, speech deficit - Skin Skin exam: Present: dry, intact, pallor Internal Medicine: Result - Labs CBC & Chem 7: 12/20/17 06:20 12/20/17 01:10 Labs: Short CBC 12/19/17 12/20/17 12/20/17 Range/Units 18:21 01:10 06:20 WBC 7.5 (4.3-11.1) K/mcL Hgb 8.0 L 8.0 L 7.8 L (11.5-15.4) g/dL Hct 24.8 L 25.4 L 25.0 L (35.3-44.9) % Plt Count 252 (140-400) K/mcL Neutrophils # 4.9 (1.6-8.9) K/mcL BMP 12/20/17 01:10 Sodium 134 L Potassium 4.5 Chloride 99 Carbon Dioxide 25 BUN 31 H Creatinine 4.56 H Glucose 123 H Calcium 8.3 L Cardiac Enzymes 12/19/17 12/19/17 Range/Units 16:24 18:21 Troponin I 0.09 H* 0.10 H* (< 0.04) ng/mL Liver Function 12/20/17 Range/Units 01:10 Total Bilirubin 0.4 (0.3-1.0) mg/dL AST 13 (13-39) Units/L ALT 9 (7-52) Units/L Alkaline Phosphatase 84 (34-104) Units/L Albumin 3.9 (3.5-5.7) g/dL - ABG Interpretation ABG results: PT/INR, D-dimer PT 28.8 Seconds (9.4-12.1) H 12/20/17 01:10 Consult Discharge Plan - Plan Referrals: Eleazar Calhoun MD [Primary Care Provider] -
[2017-12-20] MEDS: Insulin DETEMIR 100 UNIT/ML X5UNITS SQ SCH ×2 (14:12→22:28)
--- NOTE | 2017-12-20 14:57 | Nephrology Consult Note ---
Date of Encounter: 12/20/17 Time of Encounter: 11:25 Assessment and Plan (1) ESRD (end stage renal disease) on dialysis Current Visit: Yes Status: Chronic GI BLeed, awaiting scope per GI. Hgb 7.8. No HD today, keeping MWF schedule. History of Present Illness - Reason for Consult end stage renal disease - History of Present Illness Ms. Madden is a 67 year [place]. Ms. Madden presented to ER following dialysis with weakness and history of black and bloody stools for the past week. Her Hgb last week at dialysis was over 12 and yesterday Hgb 8.0. Also tachycardic, rate in 160's at dialysis unit. She currently is on coumadin for Chronic Afib. She denies any fevers, chills, chest pain, abdominal pain, N/V/D. She states she has been having to use her home O2 for longer periods of time. Other PMH- atrial fibrillation, CHF, coronary artery disease, diabetes, dialysis, hypertension, myocardial infarction, renal disease, angioplasty/stent, cholecystectomy, hysterectomy, anxiety. She did receive a bolus of fluid to see if helped tachycardia. Continued RVR and started on Cardizem drip, today rate controlled. CXR reveals mild central vascular congestion. CBC reveals anemia with HGB 9.2, Troponin elevation at 0.13. GI consulted. Coumadin and Plavix held per Cardiology. At time of consult she states is NPO, thinks being scoped per GI this afternoon. Hgb 7.8 today. Past Med Surg Social Fam HX - Past Medical History Medical history: atrial fibrillation, CHF, coronary artery disease, diabetes, dialysis, hypertension, myocardial infarction, renal disease Psychiatric history: anxiety - Past Surgical History Surgical History: angioplasty/stent, cholecystectomy, hysterectomy, other - Social History Smoking Status: Never smoker Smokeless Tobacco Status: No Alcohol use: none Drug use: none - Family History Father Family Member Ethnicity: Non- Living Status: Hx Family Cardiac Disorders: Yes (MA) Mother Family Member Ethnicity: Non- Living Status: Hx Family Cardiac Disorders: Yes (HD) Hx Family Respiratory Disorders: No Hx Family Cancer: No Hx Family GI Disorders: No Hx Family Endocrine Disorder: Yes (DM) Hx Family Neuromuscular Disorders: No Hx Family Neurologic Disorders: No Hx Family HEENT Disorders: No Hx Family Autoimmune Disorders: No Brother Family Member Ethnicity: Non- Living Status: Still Living Hx Family Cardiac Disorders: Yes Hx Family Respiratory Disorders: Yes (sleep apnea) Hx Family Cancer: No Hx Family GI Disorders: No Hx Family Endocrine Disorder: Yes (DM) Hx Family Neuromuscular Disorders: No Hx Family Neurologic Disorders: No Hx Family HEENT Disorders: No Hx Family Autoimmune Disorders: No Sister Family Member Ethnicity: Non- Living Status: Hx Family Cardiac Disorders: Yes (HTN) Hx Family Respiratory Disorders: No Hx Family Cancer: Yes (Ovarian) Hx Family GI Disorders: No Hx Family Endocrine Disorder: Yes (DM) Hx Family Neuromuscular Disorders: No Hx Family Neurologic Disorders: No Hx Family HEENT Disorders: No Hx Family Autoimmune Disorders: No Medications and Allergies Clopidogrel [Plavix] 75 mg PO DAILY 03/17/17 [History] Gabapentin [Neurontin] 100 mg PO TID 03/17/17 [History] Insulin Glargine,Hum.rec.anlog [Lantus Solostar] 18 - 20 unit SQ BID 03/17/17 [ History] Insulin LISPRO [Humalog] 4 - 16 unit SQ TIDWM 03/17/17 [History] Metoprolol XL (24 HR) Succ [Toprol Xl] 100 mg PO DAILY #30 tab.er.24h 03/22/17 [ Rx] Isosorbide MONOnitrate [Isosorbide Mononitrate ER] 120 mg PO DAILY 06/20/17 [ History] Aspirin 81 mg PO DAILY #30 tab.chew 06/21/17 [Rx] Allopurinol [Zyloprim 100 MG] 200 mg PO DAILY 07/24/17 [History] Calcium Acetate [Phos-LO] 1,334 mg PO TIDWM 07/24/17 [History] Amiodarone [Cordarone] 200 mg PO DAILY #30 tablet 09/22/17 [Rx] Albuterol Sulfate [Albuterol Inhaler] 2 puff IH Q6HR PRN 10/26/17 [History] Citalopram Hydrobromide [Citalopram HBr] 10 mg PO DAILY 10/26/17 [History] Warfarin [Coumadin] 7.5 mg PO MOTHFRSA 10/26/17 [History] hydrALAZINE [HydrALAZINE] 25 mg PO BID #60 tablet 11/08/17 [Rx] Furosemide [Lasix] 20 mg PO BID 12/19/17 [History] Warfarin [Coumadin] 5 mg PO SUTUWE 12/19/17 [History] 3 Allergy/AdvReac Type Severity Reaction Status Date / Time bacitracin Allergy Rash Verified 07/24/17 10:16 [From Neosporin ([id number])] Neomycin Allergy Rash Verified 07/24/17 10:16 [From Neosporin ([id number]-jesru)] polymyxin B Allergy Rash Verified 07/24/17 10:16 [From Neosporin (dxs-trs-lifmi)] atorvastatin AdvReac Cramping Verified 07/24/17 10:16 of the Muscles plastic Allergy Rash Uncoded 07/24/17 10:16 tape Allergy Rash Uncoded 07/24/17 10:16 Review of Systems All Systems: reviewed and no additional remarkable complaints except as stated Exam - Vital Signs Vital signs: Initial Vital Signs Temp Pulse Resp BP Pulse Ox 97 F L 148 18 139/86 95 12/19/17 09:20 12/19/17 09:20 12/19/17 09:20 12/19/17 09:20 12/19/17 09:20 Vital Signs - Last 8 Hours Temp Pulse Resp BP Pulse Ox 12/20/17 11:48 97.3 F L 67 18 99/62 100 12/20/17 06:50 97.4 F L 69 18 126/67 97 Intake and Output 12/19/17 12/20/17 12/20/17 23:59 07:59 15:59 Intake Total 117.4 / 117.4 45 / 45 0 / 0 Balance 117.4 / 117.4 45 / 45 0 / 0 Intake: IV Fluids 117.4 / 117.4 45 / 45 Cardizem 125 MG In 0.9 % Sodium 117.4 / 117.4 45 / 45 Chloride 100 ML @ 5 MG/HR 5 mls/hr IVC .Q24H DELIO Rx#: [id number] Oral 0 / 0 Other: Meal NPO Percent of Meal Consumed 0% Stool Size Moderate Smear Stool Consistency liquid loose Stool Color Bright Red Blood Bright Red Blood # Voids 1 # Bowel Movements 1 1 Weight 92.986 kg Blood Glucose* 136 91 106 Patient Weight 12/20/17 23:59 Weight 92.986 kg - General Appearance General appearance: well-developed, well-nourished, appears started age EENT: mucous membranes moist Neck: no JVD Respiratory: clear Cardiology: no edema, irregular rhythm - Dialysis Access Dialysis Vascular Access: Arteriovenous Fistula thrill: Yes bruit: Yes Gastrointestinal: normoactive bowel sounds, no tenderness Integumentary: warm and dry Neurologic: alert and oriented x3 Results - Lab Results 12/20/17 06:20 12/20/17 01:10 Most recent lab results Calcium 8.3 mg/dL (8.6-10.3) L 12/20/17 01:10 Consult Discharge Plan - Plan Referrals: Eleazar Calhoun MD [Primary Care Provider] -
[2017-12-20] MEDS: Ringers Solution, Lactated 250 ML IV SCH ×2 (17:38→19:46)
[2017-12-21 05:15] LABS: Hematocrit 22.4 % (35.3-44.9); Hemoglobin 6.8 g/dL (11.5-15.4); Mean Corpuscular HGB Conc 30.4 g/dL (31.6-35.5); Mean Corpuscular Hemoglobin 31.6 pg (28.0-33.3); Mean Corpuscular Volume 104.2 fL (83.0-100.0); Mean Platelet Volume 9.9 fL (9.4-12.4); Platelet Count 218 K/mcL (140-400); Red Blood Count 2.15 M/mcL (3.82-4.97); Red Cell Distribution Width 16.8 % (11.5-14.5)
[2017-12-21] MEDS: Pantoprazole 40 MG VIAL IVP SCH ×3 (06:20→18:27)
[2017-12-21] MEDS ORDERED: 0.9 % Sodium Chloride 2,000 ML ONE (07:12)
[2017-12-21] MEDS ORDERED: 0.9 % Sodium Chloride 250 ML IVC PRN (08:24)
[2017-12-21] MEDS: Calcium Acetate 667 MG CAPSULE PO SCH ×3 (08:27→18:27)
[2017-12-21] MEDS: Insulin LISPRO 300 UNITS/3 ML VIAL SQ SCH ×4 (08:27→20:56)
[2017-12-21 08:28] LABS: INR 2.3; Prothrombin Time 24.8 Seconds (9.4-12.1)
[2017-12-21] MEDS ORDERED: 0.9 % Sodium Chloride 1,000 ML PRIME SCH (08:30)
[2017-12-21 09:14] LABS: Hepatitis B Surface Antibody 3.87 mIU/mL; Hepatitis B Surface Antigen Nonreactive (Nonreactive)
[2017-12-21] MEDS: hydrALAZINE 25 MG TABLET PO SCH ×2 (10:14→20:56)
[2017-12-21] MEDS: Insulin DETEMIR 100 UNIT/ML X5UNITS SQ SCH ×2 (10:14→20:57)
[2017-12-21] MEDS ORDERED: 0.9 % Sodium Chloride 250 ML ONE (10:33)
[2017-12-21] MEDS: Gabapentin 100 MG CAPSULE PO SCH ×3 (10:36→20:56)
[2017-12-21] MEDS: Furosemide 20 MG TABLET PO SCH ×3 (10:37→18:36)
--- NOTE | 2017-12-21 11:13 | Nephrology Progress Note ---
Date of Encounter: 12/21/17 Time of Encounter: 11:00 - Assessment and Plan (1) ESRD (end stage renal disease) on dialysis Current Visit: Yes Status: Chronic GI bleed, colonoscopy today. Will receive PRBC's on HD today. Orders given. Subjective Interval history: Prep in progress for colonoscopy later today. Objective - Vital Signs Vital signs: Vital Signs Temp Pulse Resp BP Pulse Ox 12/21/17 10:50 98.0 F 69 16 139/72 100 12/21/17 09:16 97.5 F L 66 99 12/21/17 07:34 97.5 F L 66 18 111/62 99 12/21/17 04:25 97.6 F 64 17 101/44 98 12/21/17 01:38 97.8 F 66 16 97/60 98 12/20/17 20:21 98.7 F 69 17 91/48 100 12/20/17 16:00 97.7 F 69 18 91/55 98 12/20/17 11:48 97.3 F L 67 18 99/62 100 Intake and Output 12/20/17 12/21/17 12/21/17 23:59 07:59 15:59 Intake Total 0 / 0 Balance 0 / 0 Intake: Blood Product 0 / 0 Plasma Unit [id number] 0 / 0 Other: Meal npo Percent of Meal Consumed 0% Stool Size Moderate Stool Consistency soft # Voids 1 # Bowel Movements 1 Weight 91.9 kg Blood Glucose* 86 98 Patient Weight 12/21/17 23:59 Weight 91.9 kg - General Appearance General appearance: Present: well-developed, well-nourished, appears started age EENT: Present: mucous membranes moist Neck: Present: no JVD Respiratory: Present: clear Cardiology: Present: no edema, regular rate, regular rhythm Gastrointestinal: Present: normoactive bowel sounds, no tenderness Integumentary: Present: warm and dry Neurologic: Present: alert and oriented x3 - Lab 12/21/17 04:52 12/21/17 04:52 Most recent lab results Calcium 7.0 mg/dL (8.6-10.3) L 12/21/17 04:52 Consult Discharge Plan - Plan Referrals: Eleazar Calhoun MD [Primary Care Provider] - 01/04/18 11:00 am (Please follow up as schedule...)
--- NOTE | 2017-12-21 14:15 | Internal Med Progress Note ---
Date of Encounter: 12/21/17 Time of Encounter: 14:12 - Assessment and plan (1) GI bleeding Current Visit: Yes Status: Acute Assessment and plan: Patient having lower GI bleed. As this has been persistent with continued drop in hemoglobin, we will give patient FFP to reverse anticoagulation. We will also transfuse 1 unit packed red blood cells today. Continue IV PPI. Monitor vital signs closely. Plan for colonoscopy once INR is normal. stopped Plavix and Coumadin. Qualifiers: GI bleed type/associated pathology: anorectal hemorrhage Qualified Code(s) : K62.5 - Hemorrhage of anus and rectum (2) Atrial fibrillation with rapid ventricular response Current Visit: Yes Status: Acute Assessment and plan: Rate controlled now. No longer on anticoagulation due to GI bleed and anemia. (3) Diabetes Current Visit: Yes Status: Chronic Assessment and plan: Well-controlled Qualifiers: Diabetes mellitus type: type 2 Diabetes mellitus terminal worker insulin use: with care home use Diabetes mellitus complication status: with kidney complications Diabetes mellitus complication detail: with chronic kidney disease Chronic kidney disease stage: on chronic dialysis Qualified Code(s) : E11.22 - Type 2 diabetes mellitus with diabetic chronic kidney disease; N18.6 - End stage renal disease; Z99.2 - Dependence on renal dialysis; Z99.2 - Dependence on renal dialysis; Z99.2 - Dependence on renal dialysis; N18.6 - End stage renal disease; N18.6 - End stage renal disease; N18.6 - End stage renal disease; Z79.4 - residential (current) use of insulin; Z79.4 - truck terminal manager (current ) use of insulin; Z79.4 - residential (current) use of insulin; Z79.4 - truck terminal manager (current) use of insulin; Z99.2 - Dependence on renal dialysis (4) DVT prophylaxis Current Visit: Yes Status: Acute Assessment and plan: with SCDs only (5) Stented coronary artery Current Visit: Yes Status: Acute (6) ESRD (end stage renal disease) on dialysis Current Visit: Yes Status: Chronic Assessment and plan: Dialysis today. Nephrology following (7) COPD (chronic obstructive pulmonary disease) Current Visit: Yes Status: Chronic Assessment and plan: not in acute exacerbation. On bronchodilators as needed. Qualifiers: COPD type: unspecified COPD Qualified Code(s): J44.9 - Chronic obstructive pulmonary disease, unspecified (8) Hypertension Current Visit: Yes Status: Chronic Assessment and plan: Blood pressure is well controlled Qualifiers: Hypertension type: essential hypertension Qualified Code(s): I10 - Essential (primary) hypertension (9) Elevated troponin Current Visit: Yes Status: Acute Assessment and plan: Adynamic. Troponin stable. Likely due to demand ischemia. Cardiology input appreciated. (10) CHF (congestive heart failure) Current Visit: Yes Status: Chronic Assessment and plan: Not in acute exacerbation. Volume management with hemodialysis. Qualifiers: Heart failure type: diastolic Heart failure chronicity: chronic Qualified Code(s): I50.32 - Chronic diastolic (congestive) heart failure - Time Spent With Patient Total time spent is greater than 50% in coordination of care (as documented) at patient's floor/unit and/or counseling patient: - Subjective Interval history: Patient seen earlier today. Continues to have bloody bowel movements although this appears to be decreasing in frequency and severity. Colonoscopy was canceled yesterday due to elevated INR. INR remains elevated today also. She denies any dizziness or lightheadedness. No nausea or vomiting. Is due for dialysis today. - Constitutional Vitals: Temp Pulse Resp BP Pulse Ox 98.0 F 68 18 122/49 99 12/21/17 11:18 12/21/17 11:18 12/21/17 11:18 12/21/17 11:18 12/21/17 11:18 General appearance: Present: cooperative, A&O X 3, no acute distress, answers questions appropriately - Neck Neck exam general surgery: Present: supple, trachea midline. Absent: lymphadenopathy - Respiratory Respiratory exam: Present: CTAB. Absent: accessory muscle use, rales, rhonchi, wheezes - Cardiovascular Cardiovascular exam: Present: RRR, +S1, +S2. Absent: diastolic murmur, gallop, rubs, systolic murmur - GI/Abdominal GI/Abdominal exam: Present: normal bowel sounds, soft, no peritoneal signs. Absent: distended, tenderness - Extremities Exam Extremities exam: Present: warm, radial pulses palpable and symmetrical. Absent : calf tenderness, cyanotic, pedal edema - Skin Skin exam: Present: dry, intact, pallor Internal Medicine: Result - Labs CBC & Chem 7: 12/21/17 04:52 12/21/17 04:52 Labs: Short CBC 12/21/17 Range/Units 04:52 WBC 6.5 (4.3-11.1) K/mcL Hgb 6.8 L (11.5-15.4) g/dL Hct 22.4 L (35.3-44.9) % Plt Count 218 (140-400) K/mcL BMP 12/21/17 04:52 Sodium 136 Potassium 5.0 Chloride 100 Carbon Dioxide 23 BUN 40 H Creatinine 6.56 H Glucose 87 Calcium 7.0 L - ABG Interpretation ABG results: PT/INR, D-dimer PT 24.8 Seconds (9.4-12.1) H 12/21/17 08:07 Consult Discharge Plan - Plan Referrals: Eleazar Calhoun MD [Primary Care Provider] - 01/04/18 11:00 am (Please follow up as schedule...)
[2017-12-21] MEDS: Metoprolol XL (24 HR) Succ 50 MG TAB.ER.24H PO SCH (18:23)
[2017-12-21] MEDS: Isosorbide MONOnitrate (24 HR) 60 MG TAB.ER.24H PO SCH (18:26)
[2017-12-21] MEDS: *HR* Amiodarone 200 MG TABLET PO SCH (18:26)
[2017-12-21 19:52] LABS: Hematocrit 26.6 % (35.3-44.9)
[2017-12-21 19:54] LABS: Hemoglobin 8.6 g/dL (11.5-15.4)
[2017-12-22 04:24] LABS: Basophils # 0.1 K/mcL (0.0-0.2); Basophils % 0.8 %; Eosinophils # 0.2 K/mcL (0.0-0.6); Eosinophils % 3.8 %; Hematocrit 25.3 % (35.3-44.9); Immature Granulocytes % 1.6 % (0-4); Lymphocytes # 1.3 K/mcL (0.6-4.6); Lymphocytes % 21.3 %; Mean Corpuscular HGB Conc 31.6 g/dL (31.6-35.5); Mean Corpuscular Hemoglobin 31.7 pg (28.0-33.3); Mean Corpuscular Volume 100.4 fL (83.0-100.0); Monocytes # 0.4 K/mcL (0.0-1.3); Monocytes % 6.8 %; Platelet Count 215 K/mcL (140-400); Red Blood Count 2.52 M/mcL (3.82-4.97); Red Cell Distribution Width 16.8 % (11.5-14.5); Segmented Neutrophils % 65.7 %
[2017-12-22 04:37] LABS: Calcium 7.8 mg/dL (8.6-10.3); Potassium 4.1 mEq/L (3.5-5.1)
[2017-12-22] MEDS: Insulin LISPRO 300 UNITS/3 ML VIAL SQ SCH ×4 (07:25→21:16)
[2017-12-22] MEDS: Isosorbide MONOnitrate (24 HR) 60 MG TAB.ER.24H PO SCH ×2 (07:48→11:36)
[2017-12-22] MEDS: Metoprolol XL (24 HR) Succ 50 MG TAB.ER.24H PO SCH ×2 (07:48→11:36)
[2017-12-22] MEDS: hydrALAZINE 25 MG TABLET PO SCH ×4 (07:48→21:18)
[2017-12-22] MEDS: *HR* Amiodarone 200 MG TABLET PO SCH ×2 (07:48→11:37)
[2017-12-22 07:51] LABS: INR 1.9; Prothrombin Time 21.1 Seconds (9.4-12.1)
[2017-12-22] MEDS: Calcium Acetate 667 MG CAPSULE PO SCH ×3 (07:53→16:26)
[2017-12-22] MEDS: Gabapentin 100 MG CAPSULE PO SCH ×3 (07:53→21:16)
[2017-12-22] MEDS: Furosemide 20 MG TABLET PO SCH ×2 (07:53→16:26)
[2017-12-22] MEDS: Insulin DETEMIR 100 UNIT/ML X5UNITS SQ SCH ×2 (07:54→21:16)
--- NOTE | 2017-12-22 08:57 | Nephrology Progress Note ---
Date of Encounter: 12/22/17 Time of Encounter: 08:45 - Assessment and Plan (1) ESRD (end stage renal disease) on dialysis Current Visit: Yes Status: Chronic GI bleed, colonoscopy Sunday. No HD today, keeping MWF schedule. Subjective Interval history: Laying in bed. States no further BM's. Thinks colonoscopy delated until Sunday. Increased PT/INR. Objective - Vital Signs Vital signs: Vital Signs Temp Pulse Resp BP Pulse Ox 12/22/17 07:57 100 12/22/17 06:57 97.5 F L 59 16 101/57 100 12/22/17 05:23 97.8 F 62 16 106/55 100 12/21/17 23:36 98.0 F 62 17 104/63 99 12/21/17 20:22 98.2 F 69 18 112/64 98 12/21/17 18:00 97.2 F L 18 112/51 12/21/17 17:30 106/55 12/21/17 17:15 116/56 12/21/17 17:00 107/58 12/21/17 16:45 122/57 12/21/17 16:30 118/57 12/21/17 16:15 106/53 12/21/17 16:06 97.5 F L 60 20 124/55 12/21/17 16:00 136/62 12/21/17 15:45 125/60 12/21/17 15:30 136/59 12/21/17 15:23 98 F 62 18 128/62 12/21/17 15:15 110/56 12/21/17 15:08 97.9 F 64 18 125/60 12/21/17 15:00 132/65 12/21/17 14:45 98 F 18 128/60 12/21/17 14:25 98.1 F 66 18 125/67 12/21/17 11:18 98.0 F 68 18 122/49 99 12/21/17 11:12 98.1 F 67 16 114/61 99 12/21/17 10:50 98.0 F 69 16 139/72 100 12/21/17 09:16 97.5 F L 66 99 Intake and Output 12/21/17 12/22/17 12/22/17 23:59 07:59 15:59 Intake Total 950 / 950 0 / 0 240 / 240 Output Total 3929 / 3929 0 / 0 Balance -2979 / -2979 0 / 0 240 / 240 Intake: Oral 600 / 600 0 / 0 240 / 240 Blood Product 350 / 350 Rbcs Leuko Poor As-1 Unit 350 / 350 [id number] Output: Urine 0 / 0 0 / 0 Total Dialysis (HD) Output 3929 / 3929 Other: Meal Dinner Breakfast Percent of Meal Consumed 100% 80% Weight 91.9 kg Blood Glucose* 139 85 Hemodialysis Net Fluid Removed 2979 (mL) Patient Weight 12/22/17 23:59 Weight 91.9 kg - General Appearance General appearance: Present: well-developed, well-nourished, appears started age EENT: Present: mucous membranes moist Neck: Present: no JVD Respiratory: Present: clear Cardiology: Present: no edema, irregular rhythm Gastrointestinal: Present: normoactive bowel sounds, no tenderness Integumentary: Present: warm and dry Neurologic: Present: alert and oriented x3 - Lab 12/22/17 04:03 12/22/17 04:03 Most recent lab results Calcium 7.8 mg/dL (8.6-10.3) L 12/22/17 04:03 Consult Discharge Plan - Plan Referrals: Eleazar Calhoun MD [Primary Care Provider] - 01/04/18 11:00 am (Please follow up as schedule...)
--- NOTE | 2017-12-22 10:20 | Internal Med Progress Note ---
Date of Encounter: 12/22/17 Time of Encounter: 09:00 - Assessment and plan (1) GI bleeding Current Visit: Yes Status: Acute Assessment and plan: Hemoglobin 8 today. Continue IV Protonix. Awaiting colonoscopy scheduled for Sunday. Continue liquid diet for now. Monitor vital signs closely. Moderate risk for complications Qualifiers: GI bleed type/associated pathology: anorectal hemorrhage Qualified Code(s) : K62.5 - Hemorrhage of anus and rectum (2) Atrial fibrillation with rapid ventricular response Current Visit: Yes Status: Acute Assessment and plan: In regular rhythm right now. Rate controlled. Anticoagulation stopped due to GI bleed per cardiology recommendations. Patient understands increased risk of stroke but understands the need to stop anticoagulation at this time to prevent further bleeding. (3) Diabetes Current Visit: Yes Status: Chronic Assessment and plan: Well-controlled Qualifiers: Diabetes mellitus type: type 2 Diabetes mellitus buttermaker insulin use: with [facility] use Diabetes mellitus complication status: with kidney complications Diabetes mellitus complication detail: with chronic kidney disease Chronic kidney disease stage: on chronic dialysis Qualified Code(s) : E11.22 - Type 2 diabetes mellitus with diabetic chronic kidney disease; N18.6 - End stage renal disease; Z99.2 - Dependence on renal dialysis; Z99.2 - Dependence on renal dialysis; Z99.2 - Dependence on renal dialysis; N18.6 - End stage renal disease; N18.6 - End stage renal disease; N18.6 - End stage renal disease; Z79.4 - salvage determiner (current) use of insulin; Z79.4 - custodial (current ) use of insulin; Z79.4 - custodial (current) use of insulin; Z79.4 - custodial (current) use of insulin; Z99.2 - Dependence on renal dialysis (4) DVT prophylaxis Current Visit: Yes Status: Acute Assessment and plan: With SCDs (5) Stented coronary artery Current Visit: Yes Status: Acute Assessment and plan: Evaluated by cardiology and recommended to stop Plavix at this time. Continue aspirin (6) ESRD (end stage renal disease) on dialysis Current Visit: Yes Status: Chronic (7) COPD (chronic obstructive pulmonary disease) Current Visit: Yes Status: Chronic Assessment and plan: Not in acute exacerbation. O2 supplementation as needed. Bronchodilators as needed Qualifiers: COPD type: unspecified COPD Qualified Code(s): J44.9 - Chronic obstructive pulmonary disease, unspecified (8) Hypertension Current Visit: Yes Status: Chronic Assessment and plan: Blood pressure is well controlled Qualifiers: Hypertension type: essential hypertension Qualified Code(s): I10 - Essential (primary) hypertension (9) Elevated troponin Current Visit: Yes Status: Acute Assessment and plan: Adynamic. Likely from demand ischemia. Cardiology has seen patient and signed off at this time. Continue home medications including aspirin, metoprolol (10) CHF (congestive heart failure) Current Visit: Yes Status: Chronic Assessment and plan: Chronic. Continue oral Lasix. Volume management with hemodialysis. Qualifiers: Heart failure type: diastolic Heart failure chronicity: chronic Qualified Code(s): I50.32 - Chronic diastolic (congestive) heart failure - Time Spent With Patient Total time spent is greater than 50% in coordination of care (as documented) at patient's floor/unit and/or counseling patient: - Subjective Interval history: Patient is sleeping comfortably. Denies any complaints. Awakes easily. She has not had any new episodes of bloody bowel movements. Denies any abdominal pain. No nausea or vomiting. - Constitutional Vitals: Temp Pulse Resp BP Pulse Ox 97.5 F L 59 16 101/57 100 12/22/17 06:57 12/22/17 06:57 12/22/17 06:57 12/22/17 06:57 12/22/17 07:57 General appearance: Present: cooperative, A&O X 3, no acute distress, answers questions appropriately - Neck Neck exam general surgery: Present: supple, trachea midline. Absent: lymphadenopathy - Respiratory Respiratory exam: Present: CTAB. Absent: accessory muscle use, rales, rhonchi, wheezes - Cardiovascular Cardiovascular exam: Present: RRR, +S1, +S2, systolic murmur. Absent: diastolic murmur, gallop, rubs - GI/Abdominal GI/Abdominal exam: Present: normal bowel sounds, soft, no peritoneal signs. Absent: distended, tenderness - Neurological Exam Neurological exam: Present: alert, oriented X3, no focal deficits. Absent: facial droop, speech deficit - Skin Skin exam: Present: dry, intact, pallor Internal Medicine: Result - Labs CBC & Chem 7: 12/22/17 04:03 12/22/17 04:03 Labs: Short CBC 12/21/17 12/22/17 Range/Units 19:36 04:03 WBC 6.1 (4.3-11.1) K/mcL Hgb 8.6 L D 8.0 L (11.5-15.4) g/dL Hct 26.6 L 25.3 L (35.3-44.9) % Plt Count 215 (140-400) K/mcL Neutrophils # 4.0 (1.6-8.9) K/mcL BMP 12/22/17 04:03 Sodium 136 Potassium 4.1 Chloride 96 L Carbon Dioxide 31 H BUN 23 Creatinine 4.70 H Glucose 80 Calcium 7.8 L - ABG Interpretation ABG results: PT/INR, D-dimer PT 21.1 Seconds (9.4-12.1) H 12/22/17 07:37 Consult Discharge Plan - Plan Referrals: Eleazar Calhoun MD [Primary Care Provider] - 01/04/18 11:00 am (Please follow up as schedule...)
[2017-12-22] MEDS ORDERED: *HR* Phytonadione 5 MG TABLET PO ONE (12:00)
--- NOTE | 2017-12-22 13:46 | Electrocardiograph Report ---
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 : 1950 Requested By: Guevara Zhang Order Number: [id number] Reading MD: Radha Dougherty Measurements Intervals [place] Rate: 127 P: AK: 0 QRS: -41 QRSD: 113 T: 121 QT: 326 QTc: 401 Interpretive Statements ATRIAL FIBRILLATION WITH RAPID VENTRICULAR RESPONSE VOLTAGE CRITERIA FOR LVH [MEETS CRITERIA IN ONE OF: R(aVL), S(V1), R(V5), R(V5/V6) +S(V1)] INFERIOR MYOCARDIAL INFARCTION [40+ ms Q WAVE AND/OR ST/T ABNORMALITY IN II/aVF], PROBABLY OLD LEFT ANTERIOR FASCICULAR BLOCK ANTEROSEPTAL MYOCARDIAL INFARCTION [40+ ms Q WAVE IN V1-V4], OF INDETERMINATE AGE MODERATE T-WAVE ABNORMALITY, CONSIDER LATERAL ISCHEMIA [-0.1+ mV T WAVE IN I/aVL/V5/V6] Electronically Signed On 12-22-2017 13:45:11 EDT by Radha Dougherty
--- NOTE | 2017-12-22 13:46 | Electrocardiograph Report ---
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: PRIMO : 1950 Requested By: Barrington Walton Order Number: [id number] Reading MD: Radha Dougherty Measurements Intervals [place] Rate: 120 P: NE: 0 QRS: -40 QRSD: 106 T: 122 QT: 342 QTc: 413 Interpretive Statements ATRIAL FIBRILLATION WITH RAPID VENTRICULAR RESPONSE VOLTAGE CRITERIA FOR LVH [MEETS CRITERIA IN ONE OF: R(aVL), S(V1), R(V5), R(V5/V6) +S(V1)] INFERIOR MYOCARDIAL INFARCTION [40+ ms Q WAVE AND/OR ST/T ABNORMALITY IN II/aVF], PROBABLY OLD LEFT ANTERIOR FASCICULAR BLOCK ANTEROSEPTAL MYOCARDIAL INFARCTION [40+ ms Q WAVE IN V1-V4], OF INDETERMINATE AGE MODERATE T-WAVE ABNORMALITY, CONSIDER LATERAL ISCHEMIA [-0.1+ mV T WAVE IN I/aVL/V5/V6] Electronically Signed On 12-22-2017 13:44:28 EDT by Radha Dougherty
[2017-12-22] MEDS: Pantoprazole 40 MG VIAL IVP SCH (16:26)
[2017-12-22 16:36] LABS: Hematocrit 26.3 % (35.3-44.9); Hemoglobin 8.9 g/dL (11.5-15.4)
[2017-12-23] MEDS ORDERED: Lidocaine 4% CREAM (LMX) 5 GM TP PRN (00:10)
[2017-12-23] MEDS: Pantoprazole 40 MG VIAL IVP SCH ×2 (05:13→17:14)
[2017-12-23 05:26] LABS: Basophils # 0.1 K/mcL (0.0-0.2); Basophils % 0.8 %; Eosinophils # 0.3 K/mcL (0.0-0.6); Eosinophils % 4.3 %; Hematocrit 24.2 % (35.3-44.9); Hemoglobin 7.8 g/dL (11.5-15.4); Immature Granulocytes % 1.9 % (0-4); Lymphocytes # 1.6 K/mcL (0.6-4.6); Mean Corpuscular HGB Conc 32.2 g/dL (31.6-35.5); Mean Corpuscular Volume 99.2 fL (83.0-100.0); Mean Platelet Volume 9.1 fL (9.4-12.4); Monocytes # 0.5 K/mcL (0.0-1.3); Monocytes % 8.4 %; Neutrophils # 3.9 K/mcL (1.6-8.9); Platelet Count 212 K/mcL (140-400); Red Blood Count 2.44 M/mcL (3.82-4.97); Red Cell Distribution Width 16.5 % (11.5-14.5); Segmented Neutrophils % 60.6 %
[2017-12-23 05:34] LABS: Calcium 7.7 mg/dL (8.6-10.3); Potassium 4.3 mEq/L (3.5-5.1)
--- NOTE | 2017-12-23 09:08 | Nephrology Progress Note ---
Date of Encounter: 12/23/17 Time of Encounter: 08:40 - Assessment and Plan (1) ESRD (end stage renal disease) on dialysis Current Visit: Yes Status: Chronic GI bleed, colonoscopy Sunday. No HD today, keeping MWF schedule. Subjective Interval history: Laying in bed. States no further BM's. Colonoscopy Sunday. Objective - Vital Signs Vital signs: Vital Signs Temp Pulse Resp BP Pulse Ox 12/23/17 06:54 98.1 F 57 97 107/61 12/23/17 03:04 98.0 F 56 16 107/54 97 12/22/17 22:58 98.2 F 60 16 102/52 96 12/22/17 22:09 93 12/22/17 18:54 98.3 F 60 17 103/57 93 12/22/17 15:39 97.5 F L 61 16 110/67 95 12/22/17 11:12 97.8 F 64 16 152/79 95 Intake and Output 12/22/17 12/23/17 12/23/17 23:59 07:59 15:59 Intake Total 480 / 480 0 / 0 Balance 480 / 480 0 / 0 Intake: Oral 480 / 480 0 / 0 Other: Meal Dinner Percent of Meal Consumed 10% # Voids 2 Weight 92.2 kg Blood Glucose* 123 77 Patient Weight 12/23/17 23:59 Weight 92.2 kg - General Appearance General appearance: Present: well-developed, well-nourished, appears started age EENT: Present: mucous membranes moist Neck: Present: no JVD Respiratory: Present: clear Cardiology: Present: no edema, regular rate, regular rhythm Gastrointestinal: Present: normoactive bowel sounds, no tenderness Integumentary: Present: warm and dry Neurologic: Present: alert and oriented x3 - Lab 12/23/17 04:56 12/23/17 04:56 Most recent lab results Calcium 7.7 mg/dL (8.6-10.3) L 12/23/17 04:56 Consult Discharge Plan - Plan Referrals: Eleazar Calhoun MD [Primary Care Provider] - 01/04/18 11:00 am (Please follow up as schedule...)
[2017-12-23] MEDS: Isosorbide MONOnitrate (24 HR) 60 MG TAB.ER.24H PO SCH (09:23)
[2017-12-23] MEDS: Furosemide 20 MG TABLET PO SCH ×2 (09:23→17:13)
[2017-12-23] MEDS: *HR* Amiodarone 200 MG TABLET PO SCH (09:23)
[2017-12-23] MEDS: Calcium Acetate 667 MG CAPSULE PO SCH ×3 (09:23→17:13)
[2017-12-23] MEDS: Metoprolol XL (24 HR) Succ 50 MG TAB.ER.24H PO SCH (09:23)
[2017-12-23] MEDS: Insulin DETEMIR 100 UNIT/ML X5UNITS SQ SCH ×2 (09:23→21:38)
[2017-12-23] MEDS: hydrALAZINE 25 MG TABLET PO SCH ×2 (09:23→21:38)
[2017-12-23] MEDS: Gabapentin 100 MG CAPSULE PO SCH ×3 (09:23→21:39)
[2017-12-23] MEDS: Insulin LISPRO 300 UNITS/3 ML VIAL SQ SCH ×4 (09:24→21:38)
--- NOTE | 2017-12-23 09:25 | Internal Med Progress Note ---
Date of Encounter: 12/23/17 Time of Encounter: 08:10 - Assessment and plan (1) GI bleeding Current Visit: Yes Status: Acute Assessment and plan: Plan for colonoscopy tomorrow. Keep nothing by mouth after midnight. We will give Dulcolax suppository in the evening and possibly an enema. Avoid red dye. Moderate risk for complications. Continue to monitor hemoglobin levels. Hemoglobin 7.8 today. Continue PPI Qualifiers: GI bleed type/associated pathology: anorectal hemorrhage Qualified Code(s) : K62.5 - Hemorrhage of anus and rectum (2) Atrial fibrillation with rapid ventricular response Current Visit: Yes Status: Acute Assessment and plan: Rate controlled. Coumadin stopped. (3) Diabetes Current Visit: Yes Status: Chronic Assessment and plan: Well controlled. No changes to her insulin regimen Qualifiers: Diabetes mellitus type: type 2 Diabetes mellitus exterminator insulin use: with exterminator use Diabetes mellitus complication status: with kidney complications Diabetes mellitus complication detail: with chronic kidney disease Chronic kidney disease stage: on chronic dialysis Qualified Code(s) : E11.22 - Type 2 diabetes mellitus with diabetic chronic kidney disease; N18.6 - End stage renal disease; Z99.2 - Dependence on renal dialysis; Z99.2 - Dependence on renal dialysis; Z99.2 - Dependence on renal dialysis; N18.6 - End stage renal disease; N18.6 - End stage renal disease; N18.6 - End stage renal disease; Z79.4 - [facility] (current) use of insulin; Z79.4 - rodent exterminator (current ) use of insulin; Z79.4 - [facility] (current) use of insulin; Z79.4 - rodent exterminator (current) use of insulin; Z99.2 - Dependence on renal dialysis (4) DVT prophylaxis Current Visit: Yes Status: Acute Assessment and plan: With SCDs (5) Stented coronary artery Current Visit: Yes Status: Acute (6) ESRD (end stage renal disease) on dialysis Current Visit: Yes Status: Chronic Assessment and plan: Nephrology following. Dialysis tomorrow. (7) COPD (chronic obstructive pulmonary disease) Current Visit: Yes Status: Chronic Qualifiers: COPD type: unspecified COPD Qualified Code(s): J44.9 - Chronic obstructive pulmonary disease, unspecified (8) Hypertension Current Visit: Yes Status: Chronic Assessment and plan: Blood pressure remains well controlled Qualifiers: Hypertension type: essential hypertension Qualified Code(s): I10 - Essential (primary) hypertension (9) Elevated troponin Current Visit: Yes Status: Acute (10) CHF (congestive heart failure) Current Visit: Yes Status: Chronic Assessment and plan: Not in acute exacerbation. Continue oral Lasix. Qualifiers: Heart failure type: diastolic Heart failure chronicity: chronic Qualified Code(s): I50.32 - Chronic diastolic (congestive) heart failure - Time Spent With Patient Total time spent is greater than 50% in coordination of care (as documented) at patient's floor/unit and/or counseling patient: - Subjective Interval history: Patient is awake and alert. Did not radiate eat breakfast. Denies any new complaints at this time. She did have an episode of blood in her stools yesterday evening. No nausea or vomiting. No hematemesis. - Constitutional Vitals: Temp Pulse Resp BP Pulse Ox 98.1 F 57 97 107/61 97 12/23/17 06:54 12/23/17 06:54 12/23/17 06:54 12/23/17 06:54 12/23/17 03:04 General appearance: Present: cooperative, A&O X 3, no acute distress, answers questions appropriately - Eye Eye exam: Present: EOMI, PERRL, conjuntiva pink, sclera anicteric - Respiratory Respiratory exam: Present: CTAB. Absent: accessory muscle use, rales, rhonchi, wheezes - Cardiovascular Cardiovascular exam: Present: RRR, +S1, +S2. Absent: diastolic murmur, gallop, rubs, systolic murmur - GI/Abdominal GI/Abdominal exam: Present: normal bowel sounds, soft, no peritoneal signs. Absent: distended, tenderness - Extremities Exam Extremities exam: Present: warm, radial pulses palpable and symmetrical. Absent : calf tenderness, cyanotic, pedal edema - Neurological Exam Neurological exam: Present: alert, oriented X3, no focal deficits. Absent: facial droop, speech deficit - Skin Skin exam: Present: dry, intact, pallor Internal Medicine: Result - Labs CBC & Chem 7: 12/23/17 04:56 12/23/17 04:56 Labs: Short CBC 12/22/17 12/23/17 Range/Units 16:23 04:56 WBC 6.5 (4.3-11.1) K/mcL Hgb 8.9 L 7.8 L (11.5-15.4) g/dL Hct 26.3 L 24.2 L (35.3-44.9) % Plt Count 212 (140-400) K/mcL Neutrophils # 3.9 (1.6-8.9) K/mcL BMP 12/23/17 04:56 Sodium 134 L Potassium 4.3 Chloride 95 L Carbon Dioxide 28 BUN 37 H Creatinine 6.02 H Glucose 68 L Calcium 7.7 L - ABG Interpretation ABG results: PT/INR, D-dimer PT 21.1 Seconds (9.4-12.1) H 12/22/17 07:37 Consult Discharge Plan - Plan Referrals: Eleazar Calhoun MD [Primary Care Provider] - 01/04/18 11:00 am (Please follow up as schedule...)
[2017-12-23 14:11] LABS: Hematocrit 26.6 % (35.3-44.9); Hemoglobin 8.5 g/dL (11.5-15.4)
[2017-12-23 14:17] LABS: INR 1.4; Prothrombin Time 15.1 Seconds (9.4-12.1)
[2017-12-24 06:20] LABS: Basophils # 0.1 K/mcL (0.0-0.2); Basophils % 0.7 %; Eosinophils # 0.3 K/mcL (0.0-0.6); Eosinophils % 3.8 %; Hematocrit 24.9 % (35.3-44.9); Hemoglobin 8.1 g/dL (11.5-15.4); Immature Granulocytes % 2.1 % (0-4); Lymphocytes # 1.8 K/mcL (0.6-4.6); Lymphocytes % 24.2 %; Mean Corpuscular HGB Conc 32.5 g/dL (31.6-35.5); Mean Corpuscular Hemoglobin 32.7 pg (28.0-33.3); Mean Corpuscular Volume 100.4 fL (83.0-100.0); Mean Platelet Volume 8.8 fL (9.4-12.4); Monocytes # 0.5 K/mcL (0.0-1.3); Monocytes % 6.9 %; Neutrophils # 4.7 K/mcL (1.6-8.9); Platelet Count 235 K/mcL (140-400); Red Blood Count 2.48 M/mcL (3.82-4.97); Red Cell Distribution Width 16.8 % (11.5-14.5); Segmented Neutrophils % 62.3 %
[2017-12-24] MEDS: Pantoprazole 40 MG VIAL IVP SCH ×2 (06:24→17:49)
[2017-12-24 08:07] LABS: Calcium 7.4 mg/dL (8.6-10.3); Potassium 4.3 mEq/L (3.5-5.1)
[2017-12-24] MEDS ORDERED: 0.9 % Sodium Chloride 250 ML IVC PRN (08:29)
--- NOTE | 2017-12-24 08:29 | Nephrology Progress Note ---
Date of Encounter: 12/24/17 Time of Encounter: 08:27 - Assessment and Plan (1) ESRD (end stage renal disease) on dialysis Current Visit: Yes Status: Chronic Patient will undergo dialysis today. She will not receive any heparin. She will be started on Aranesp to help with her anemia. She is scheduled to undergo a colonoscopy today. (2) Atrial fibrillation with rapid ventricular response Current Visit: Yes Status: Acute (3) GI bleeding Current Visit: Yes Status: Acute Qualifiers: GI bleed type/associated pathology: unspecified gastrointestinal hemorrhage type Qualified Code(s): K92.2 - Gastrointestinal hemorrhage, unspecified Subjective Interval history: Patient has her usual shortness of breath. Hemoglobin is stable at 8.1. She is scheduled to undergo dialysis today as well as have a colonoscopy today. She will be dialyzed without heparin. Objective - Vital Signs Vital signs: Vital Signs Temp Pulse Resp BP Pulse Ox 12/24/17 07:01 97.6 F 54 16 117/56 94 12/24/17 03:05 97.4 F L 59 16 110/66 95 12/24/17 00:10 97.4 F L 60 16 95/48 94 12/23/17 19:37 97.8 F 61 16 127/69 95 12/23/17 15:39 97.7 F 59 16 103/62 97 12/23/17 10:42 97.9 F 58 16 116/64 94 Intake and Output 12/23/17 12/24/17 12/24/17 23:59 07:59 15:59 Other: Stool Consistency loose # Voids 1 1 # Bowel Movements 1 Weight 90.991 kg Blood Glucose* 135 79 Patient Weight 12/24/17 23:59 Weight 90.991 kg - General Appearance Exam: Patient is alert and oriented. She is in no acute distress. Lungs his breath sounds otherwise clear. Heart irregular rate and rhythm consistent with atrial fibrillation. Abdomen is benign. There is no lower extremity swelling. There is a functioning AV fistula in the right upper extremity. - Lab 12/24/17 06:00 12/24/17 07:20 Most recent lab results Calcium 7.4 mg/dL (8.6-10.3) L 12/24/17 07:20 Consult Discharge Plan - Plan Referrals: Eleazar Calhoun MD [Primary Care Provider] - 01/04/18 11:00 am (Please follow up as schedule...)
[2017-12-24] MEDS ORDERED: Darbepoetin 100 MCG/0.5 ML SYRINGE SQ SCH (08:30)
[2017-12-24] MEDS: Gabapentin 100 MG CAPSULE PO SCH ×3 (08:37→21:29)
[2017-12-24] MEDS: Insulin LISPRO 300 UNITS/3 ML VIAL SQ SCH ×4 (08:37→21:29)
[2017-12-24] MEDS: Furosemide 20 MG TABLET PO SCH ×2 (08:37→17:53)
[2017-12-24] MEDS: Calcium Acetate 667 MG CAPSULE PO SCH ×3 (08:37→17:49)
[2017-12-24] MEDS: *HR* Amiodarone 200 MG TABLET PO SCH (08:38)
[2017-12-24] MEDS: Insulin DETEMIR 100 UNIT/ML X5UNITS SQ SCH ×2 (08:39→21:29)
[2017-12-24] MEDS: Metoprolol XL (24 HR) Succ 50 MG TAB.ER.24H PO SCH (08:39)
[2017-12-24] MEDS: Isosorbide MONOnitrate (24 HR) 60 MG TAB.ER.24H PO SCH (08:40)
[2017-12-24] MEDS: hydrALAZINE 25 MG TABLET PO SCH ×2 (08:40→21:29)
[2017-12-24] MEDS ORDERED: 0.9 % Sodium Chloride 1,000 ML IVC SCH (08:45)
[2017-12-24] MEDS ORDERED: Lidocaine -MPF 2% 2 ML VIAL ONE (11:55)
[2017-12-24] MEDS ORDERED: *HR* Etomidate 40 MG/20 ML VIAL IVP ONE (11:55)
[2017-12-24] MEDS ORDERED: *HR* Propofol 200 MG/20 ML VIAL IVP ONE (11:56)
--- NOTE | 2017-12-24 12:49 | Anesthesia Evaluation PreOp ---
Date of Encounter: 12/24/17 Time of Encounter: 12:47 - Past History Planned Operation: Colonoscopy Cardiac History: Denies any Significant Hx (CHF, coronary artery disease, diabetes, dialysis, hypertension, myocardial infarction, renal disease, other Psychiatric history: no psych history - Past Surgical History Surgical History: ), RI (NSTEMI 3 months ago), CHF, HTN, Arrhythmia (Hx AF with RVR), Cardiac Stent Pulmonary History: COPD ELECTRICAL LINEMAN History: Denies Any Significant HX Other Medical History: Renal (ESRD dialysis today), Diabetes Type I, Other (GI Bleed) Anesthesia History: No Prior Anesthetic Complications, Past Anesthesia ( angioplasty/stent, cholecystectomy, hysterectomy, orthopedic) : No Alcohol Use: none Drug use: none Medications and Allergies Clopidogrel [Plavix] 75 mg PO DAILY 03/17/17 [History] Gabapentin [Neurontin] 100 mg PO TID 03/17/17 [History] Insulin Glargine,Hum.rec.anlog [Lantus Solostar] 18 - 20 unit SQ BID 03/17/17 [ History] Insulin LISPRO [Humalog] 4 - 16 unit SQ TIDWM 03/17/17 [History] Metoprolol XL (24 HR) Succ [Toprol Xl] 100 mg PO DAILY #30 tab.er.24h 03/22/17 [ Rx] Isosorbide MONOnitrate [Isosorbide Mononitrate ER] 120 mg PO DAILY 06/20/17 [ History] Aspirin 81 mg PO DAILY #30 tab.chew 06/21/17 [Rx] Allopurinol [Zyloprim 100 MG] 200 mg PO DAILY 07/24/17 [History] Calcium Acetate [Phos-LO] 1,334 mg PO TIDWM 07/24/17 [History] Amiodarone [Cordarone] 200 mg PO DAILY #30 tablet 09/22/17 [Rx] Albuterol Sulfate [Albuterol Inhaler] 2 puff IH Q6HR PRN 10/26/17 [History] Citalopram Hydrobromide [Citalopram HBr] 10 mg PO DAILY 10/26/17 [History] Warfarin [Coumadin] 7.5 mg PO MOTHFRSA 10/26/17 [History] hydrALAZINE [HydrALAZINE] 25 mg PO BID #60 tablet 02/22/18 [Rx] Furosemide [Lasix] 20 mg PO BID 12/19/17 [History] Warfarin [Coumadin] 5 mg PO SUTUWE 12/19/17 [History] 3 Allergy/AdvReac Type Severity Reaction Status Date / Time bacitracin Allergy Rash Verified 07/24/17 10:16 [From Neosporin ([id number])] Neomycin Allergy Rash Verified 07/24/17 10:16 [From Neosporin ([id number])] polymyxin B Allergy Rash Verified 07/24/17 10:16 [From Neosporin ([id number]-vek-[id number])] atorvastatin AdvReac Cramping Verified 07/24/17 10:16 of the Muscles plastic Allergy Rash Uncoded 07/24/17 10:16 tape Allergy Rash Uncoded 07/24/17 10:16 - Meds/Allergy Pre-op Review Medications Reviewed: Yes Allergies Reviewed: Yes Beta Blockers on Current Med List: No Anesthesia Results - Labs 12/24/17 06:00 12/24/17 07:20 ECHO 11/02/17 Impressions: LVEF 50-55%. Not all LV wall segments are well visualized even with use of Definity. RV is dilated. Function appears normal in limited views provided. Subcostal imaging not available. Ascending aorta not well visualized. LEFT HEART CATH Indications: Non-Stemi Impressions: There is mild one vessel coronary artery disease. The left ventricle is normal and has normal contractility EF 70% Recommendations: Optimal medical therapy of patient's disease. Aggressive risk factor modification. H Lesion Findings/Interventions * Left Main Coronary Artery The LMCA is angiographically free of disease. * Left Anterior Descending The LAD is angiographically free of disease. The 1st Diagonal is angiographically free of disease. The Left Anterior Descending has patent stents present from a previous procedure. * Circumflex The Circumflex has patent stents present from a previous procedure. The Mid Circumflex is small. There is a 40% stenosis in the Mid Circumflex. * Right Coronary Artery The RCA is angiographically free of disease. The Right PDA is angiographically free of disease. - Imaging EKG: report reviewed (ATRIAL FIBRILLATION WITH RAPID VENTRICULAR RESPONSE VOLTAGE CRITERIA FOR LVH [MEETS CRITERIA IN ONE OF: R(aVL), S(V1), R(V5), R(V5/ V6) +S(V1)] INFERIOR MYOCARDIAL INFARCTION [40+ ms Q WAVE AND/OR ST/T ABNORMALITY IN II/aVF], PROBABLY OLD LEFT ANTERIOR FASCICULAR BLOCK ANTEROSEPTAL MYOCARDIAL INFARCTION [40+ ms Q WAVE IN V1-V4], OF INDETERMINATE AGE MODERATE T-WAVE ABNORMALITY, CONSIDER LATERAL ISCHEMIA [-0.1+ mV T WAVE IN) Anesthesia Exam Vital Signs/O2 Sat, Most Current Temp Pulse Resp BP Pulse Ox 97.7 F 54 18 113/57 94 12/24/17 09:15 12/24/17 07:01 12/24/17 09:15 12/24/17 11:35 12/24/17 07:01 NPO (# of Hours): > 8 hrs Pain Scale: 0 Pain Scale Used: Numeric (1 - 10) - HEENT Pupil (Motor): Pupils equal, EOMI Mallampati: III Teeth: Edentulous Oral Opening: Greater than 3 - ELECTRICAL LINEMAN LOC: Oriented ELECTRICAL LINEMAN Motor: Normal RUE, Normal LUE, Normal RLE, Normal LLE, Normal Face ELECTRICAL LINEMAN Sensory: Normal: RUE, LUE, RLE, LLE, Face - Cardiac Rhythm: Irregular Murmur: None JVD: No Carotid Bruit: No - Pulmonary Breath Sounds: bilateral Clear Respiratory Effort: Symmetrical Anesthesia Assess/Plan ASA Score: 3 Modified [place] Scale for Level of Consciousness: Cooperative, oriented, and tranquil Anesthetic Plan: MAC Autologous Blood: Yes Monitoring Plan: Standard Monitors Recovery Plan: Other
[2017-12-24] MEDS ORDERED: *HR* FentaNYL (PF) 100 MCG/2 ML VIAL IVP ONE (16:49)
[2017-12-24] MEDS ORDERED: *HR* Midazolam HCl 2 MG/2 ML VIAL IVP ONE (16:49)
[2017-12-24] MEDS ORDERED: Simethicone 40 MG/0.6 ML MLS IR ONE (16:49)
[2017-12-24] MEDS ORDERED: *HR* FentaNYL (PF) 100 MCG/2 ML VIAL ONE (16:51)
[2017-12-24] MEDS ORDERED: *HR* Midazolam HCl 5 MG/5 ML VIAL IVP ONE (16:51)
--- NOTE | 2017-12-24 17:18 | Pre-Sedation Evaluation ---
Pre-sedation evaluation - Pre-sedation checklist Date of procedure: 12/24/17 Procedure: Colonoscopy Recent Vitals: Last Vital Signs Temp 98.1 F 12/24/17 16:48 Pulse 55 12/24/17 17:14 Resp 18 12/24/17 17:14 BP 113/36 12/24/17 17:14 Pulse Ox 98 12/24/17 17:14 H&P (including ROS) documented in medical record: Yes Previous reaction to sedatives/anesthetics: No Dietary Status: NPO after Midnight Dentition: No loose teeth or bridges, dentures removed ASA Classification *see protocol: CLASS III-Severe systemic disease Plan of Care: Pt appropriate candidate for procedure/moderate/conscious sedation , Risks/benefits of procedure/sedation discussed w/ patient/family
[2017-12-25] MEDS: Pantoprazole 40 MG VIAL IVP SCH (05:36)
[2017-12-25 06:16] LABS: Hematocrit 26.5 % (35.3-44.9); Hemoglobin 8.5 g/dL (11.5-15.4); Mean Corpuscular HGB Conc 32.1 g/dL (31.6-35.5); Mean Corpuscular Hemoglobin 32.1 pg (28.0-33.3); Mean Platelet Volume 8.7 fL (9.4-12.4); Platelet Count 225 K/mcL (140-400); Red Blood Count 2.65 M/mcL (3.82-4.97); Red Cell Distribution Width 16.6 % (11.5-14.5)
[2017-12-25 06:37] LABS: Calcium 7.4 mg/dL (8.6-10.3); Potassium 3.8 mEq/L (3.5-5.1)
[2017-12-25] MEDS: hydrALAZINE 25 MG TABLET PO SCH ×2 (08:37→20:31)
[2017-12-25] MEDS: Furosemide 20 MG TABLET PO SCH ×2 (08:37→17:43)
[2017-12-25] MEDS: Isosorbide MONOnitrate (24 HR) 60 MG TAB.ER.24H PO SCH (08:37)
[2017-12-25] MEDS: Metoprolol XL (24 HR) Succ 50 MG TAB.ER.24H PO SCH (08:38)
[2017-12-25] MEDS: Insulin LISPRO 300 UNITS/3 ML VIAL SQ SCH ×4 (08:38→20:31)
[2017-12-25] MEDS: *HR* Amiodarone 200 MG TABLET PO SCH (08:38)
[2017-12-25] MEDS: Gabapentin 100 MG CAPSULE PO SCH ×3 (08:38→20:30)
[2017-12-25] MEDS: Calcium Acetate 667 MG CAPSULE PO SCH ×3 (08:38→17:42)
[2017-12-25] MEDS: Insulin DETEMIR 100 UNIT/ML X5UNITS SQ SCH ×2 (12:36→20:30)
[2017-12-25] MEDS: Aspirin 81 MG TAB.CHEW PO SCH (12:39)
--- NOTE | 2017-12-25 16:52 | Internal Med Progress Note ---
Date of Encounter: 12/25/17 Time of Encounter: 16:49 - Assessment and plan (1) Atrial fibrillation with rapid ventricular response Current Visit: Yes Status: Acute (2) Diabetes Current Visit: Yes Status: Chronic Qualifiers: Diabetes mellitus type: type 2 Diabetes mellitus terminal block assembler insulin use: with half-way use Diabetes mellitus complication status: with kidney complications Diabetes mellitus complication detail: with chronic kidney disease Chronic kidney disease stage: on chronic dialysis Qualified Code(s) : E11.22 - Type 2 diabetes mellitus with diabetic chronic kidney disease; N18.6 - End stage renal disease; Z99.2 - Dependence on renal dialysis; Z99.2 - Dependence on renal dialysis; Z99.2 - Dependence on renal dialysis; N18.6 - End stage renal disease; N18.6 - End stage renal disease; N18.6 - End stage renal disease; Z79.4 - salvage determiner (current) use of insulin; Z79.4 - salvage determiner (current ) use of insulin; Z79.4 - salvage determiner (current) use of insulin; Z79.4 - residential (current) use of insulin; Z99.2 - Dependence on renal dialysis (3) DVT prophylaxis Current Visit: Yes Status: Acute (4) Stented coronary artery Current Visit: Yes Status: Acute (5) ESRD (end stage renal disease) on dialysis Current Visit: Yes Status: Chronic (6) COPD (chronic obstructive pulmonary disease) Current Visit: Yes Status: Chronic Qualifiers: COPD type: unspecified COPD Qualified Code(s): J44.9 - Chronic obstructive pulmonary disease, unspecified (7) Hypertension Current Visit: Yes Status: Chronic Qualifiers: Hypertension type: essential hypertension Qualified Code(s): I10 - Essential (primary) hypertension (8) GI bleeding Current Visit: Yes Status: Acute Qualifiers: GI bleed type/associated pathology: unspecified gastrointestinal hemorrhage type Qualified Code(s): K92.2 - Gastrointestinal hemorrhage, unspecified (9) Elevated troponin Current Visit: Yes Status: Acute (10) CHF (congestive heart failure) Current Visit: Yes Status: Chronic Qualifiers: Heart failure type: diastolic Heart failure chronicity: chronic Qualified Code(s): I50.32 - Chronic diastolic (congestive) heart failure - Time Spent With Patient Total time spent is greater than 50% in coordination of care (as documented) at patient's floor/unit and/or counseling patient: - Subjective Interval history: Pt seen and examined with family present at bedside. Reports of feeling better compared to previous day. s/p colonoscopy. States she feels weak and would like to stay another night. H&H improved from previous day. tentative d/c in am - Assessment and plan (1) GI bleeding Current Visit: Yes Status: Acute Assessment and plan: s/p colonoscopy (12/24/17) reported of bleeding dieulofy ulcer, internal hemmorhoids. continue PPI cleared by GI to start Aspirin continue to hold plavix and coumadin Qualifiers: GI bleed type/associated pathology: anorectal hemorrhage Qualified Code(s) : K62.5 - Hemorrhage of anus and rectum (2) Atrial fibrillation with rapid ventricular response Current Visit: Yes Status: Acute Assessment and plan: Rate controlled. Coumadin stopped due to GI Bleed restarted ASA (3) Diabetes Current Visit: Yes Status: Chronic Assessment and plan: Well controlled. sliding scale insulin algorithm monitor FS and BG ADA diet Qualifiers: Diabetes mellitus type: type 2 Diabetes mellitus terminal block assembler insulin use: with half-way use Diabetes mellitus complication status: with kidney complications Diabetes mellitus complication detail: with chronic kidney disease Chronic kidney disease stage: on chronic dialysis Qualified Code(s) : E11.22 - Type 2 diabetes mellitus with diabetic chronic kidney disease; N18.6 - End stage renal disease; Z99.2 - Dependence on renal dialysis; Z99.2 - Dependence on renal dialysis; Z99.2 - Dependence on renal dialysis; N18.6 - End stage renal disease; N18.6 - End stage renal disease; N18.6 - End stage renal disease; Z79.4 - residential (current) use of insulin; Z79.4 - salvage determiner (current ) use of insulin; Z79.4 - salvage determiner (current) use of insulin; Z79.4 - residential (current) use of insulin; Z99.2 - Dependence on renal dialysis (4) DVT prophylaxis Current Visit: Yes Status: Acute Assessment and plan: SCDs (5) Stented coronary artery Current Visit: Yes Status: Acute (6) ESRD (end stage renal disease) on dialysis Current Visit: Yes Status: Chronic Assessment and plan: Nephrology following. HD as per nephro (7) COPD (chronic obstructive pulmonary disease) Current Visit: Yes Status: Chronic Qualifiers: COPD type: unspecified COPD Qualified Code(s): J44.9 - Chronic obstructive pulmonary disease, unspecified (8) Hypertension Current Visit: Yes Status: Chronic Assessment and plan: Blood pressure remains well controlled continue home meds Qualifiers: Hypertension type: essential hypertension Qualified Code(s): I10 - Essential (primary) hypertension (9) Elevated troponin Current Visit: Yes Status: Acute (10) CHF (congestive heart failure) Current Visit: Yes Status: Chronic Assessment and plan: Not in acute exacerbation. Continue oral Lasix. Qualifiers: Heart failure type: diastolic Heart failure chronicity: chronic Qualified Code(s): I50.32 - Chronic diastolic (congestive) heart failure - Constitutional Vitals: Temp Pulse Resp BP Pulse Ox 98.2 F 61 20 108/66 93 12/25/17 08:23 12/25/17 08:23 12/25/17 08:23 12/25/17 08:23 12/25/17 04:33 General appearance: Present: cooperative, A&O X 3, no acute distress, obese, answers questions appropriately - Head Head exam: Present: atraumatic, normocephalic - Eye Eye exam: Present: conjuntiva pink, sclera anicteric - Respiratory Respiratory exam: Absent: rales, respiratory distress, wheezes - Cardiovascular Cardiovascular exam: Present: RRR, +S1, +S2. Absent: diastolic murmur, gallop, rubs, systolic murmur - GI/Abdominal GI/Abdominal exam: Present: normal bowel sounds, soft, no peritoneal signs. Absent: distended, tenderness - Extremities Exam Extremities exam: Present: warm, radial pulses palpable and symmetrical. Absent : calf tenderness - Neurological Exam Neurological exam: Present: oriented X3 Internal Medicine: Result - Labs CBC & Chem 7: 12/25/17 06:06 12/25/17 06:06 Labs: Short CBC 12/25/17 Range/Units 06:06 WBC 6.6 (4.3-11.1) K/mcL Hgb 8.5 L (11.5-15.4) g/dL Hct 26.5 L (35.3-44.9) % Plt Count 225 (140-400) K/mcL BMP 12/25/17 06:06 Sodium 134 L Potassium 3.8 Chloride 94 L Carbon Dioxide 29 BUN 24 H Creatinine 6.01 H Glucose 112 H Calcium 7.4 L - ABG Interpretation ABG results: PT/INR, D-dimer PT 15.1 Seconds (9.4-12.1) H 12/23/17 13:48 Consult Discharge Plan - Plan Referrals: Eleazar Calhoun MD [Primary Care Provider] - 01/04/18 11:00 am (Please follow up as schedule...)
[2017-12-26 07:00] LABS: Basophils % 0.6 %; Eosinophils # 0.3 K/mcL (0.0-0.6); Eosinophils % 3.9 %; Hematocrit 25.3 % (35.3-44.9); Hemoglobin 8.1 g/dL (11.5-15.4); Immature Granulocytes % 1.9 % (0-4); Lymphocytes # 1.6 K/mcL (0.6-4.6); Lymphocytes % 23.3 %; Mean Corpuscular Hemoglobin 32.5 pg (28.0-33.3); Mean Corpuscular Volume 101.6 fL (83.0-100.0); Monocytes # 0.6 K/mcL (0.0-1.3); Monocytes % 8.2 %; Neutrophils # 4.3 K/mcL (1.6-8.9); Platelet Count 240 K/mcL (140-400); Red Blood Count 2.49 M/mcL (3.82-4.97); Red Cell Distribution Width 16.5 % (11.5-14.5); Segmented Neutrophils % 62.1 %
[2017-12-26 07:41] LABS: Magnesium 1.8 mg/dL (1.6-2.6); Phosphorous 4.8 mg/dL (2.7-4.5)
[2017-12-26 07:43] LABS: Calcium 7.3 mg/dL (8.6-10.3); Potassium 4.1 mEq/L (3.5-5.1)
[2017-12-26] MEDS ORDERED: 0.9 % Sodium Chloride 250 ML IVC PRN (08:01)
--- NOTE | 2017-12-26 08:01 | Nephrology Progress Note ---
Date of Encounter: 12/26/17 Time of Encounter: 08:00 - Assessment and Plan (1) ESRD (end stage renal disease) on dialysis Current Visit: Yes Status: Chronic Patient will undergo dialysis today. The patient's hemoglobin is stable. She will not receive heparin on dialysis. (2) Atrial fibrillation with rapid ventricular response Current Visit: Yes Status: Acute (3) GI bleeding Current Visit: Yes Status: Acute Qualifiers: GI bleed type/associated pathology: unspecified gastrointestinal hemorrhage type Qualified Code(s): K92.2 - Gastrointestinal hemorrhage, unspecified Subjective Interval history: Patient feels well. She denies any new complaints. Hemoglobin is stable at 8.1. Vital signs are stable. She is scheduled for her usual dialysis today. Objective - Vital Signs Vital signs: Vital Signs Temp Pulse Resp BP Pulse Ox 12/26/17 07:09 97.9 F 59 17 119/63 95 12/26/17 05:03 98 F 59 17 107/63 94 12/26/17 00:49 97.8 F 59 16 93/46 95 12/25/17 19:09 98 F 62 16 107/58 97 12/25/17 08:23 98.2 F 61 20 108/66 Intake and Output 12/25/17 12/26/17 12/26/17 23:59 07:59 15:59 Intake Total 360 / 360 Output Total 0 / 0 Balance 360 / 360 Intake: Oral 360 / 360 Output: Urine 0 / 0 Other: Meal Dinner Percent of Meal Consumed 100% # Voids 1 Weight 90.3 kg Blood Glucose* 191 105 Patient Weight 12/26/17 23:59 Weight 90.3 kg - General Appearance Exam: Patient is alert and oriented. She is in no acute distress. Lungs diminished breath sounds otherwise clear. Heart irregular rate and rhythm consistent with atrial fibrillation. Abdomen is benign. There is no lower extremity swelling. There is a functioning AV fistula in the right upper extremity. - Lab 12/26/17 06:38 12/26/17 06:38 Most recent lab results Calcium 7.3 mg/dL (8.6-10.3) L 12/26/17 06:38 Phosphorus 4.8 mg/dL (2.7-4.5) H 12/26/17 06:38 Magnesium 1.8 mg/dL (1.6-2.6) 12/26/17 06:38 - VTE Documentation of Mechanical Device: Intermittent pneumatic compression device Consult Discharge Plan - Plan Referrals: Eleazar Calhoun MD [Primary Care Provider] - 01/04/18 11:00 am (Please follow up as schedule...)
[2017-12-26] MEDS: Calcium Acetate 667 MG CAPSULE PO SCH ×2 (08:44→12:32)
[2017-12-26] MEDS: Gabapentin 100 MG CAPSULE PO SCH (12:32)
[2017-12-26] MEDS: Isosorbide MONOnitrate (24 HR) 60 MG TAB.ER.24H PO SCH (12:32)
--- NOTE | 2017-12-26 14:22 | Discharge Summary ---
- NOTES TO OUTPATIENT PROVIDER Notes to Outpatient Provider: Patient's coumadin and plavix were placed on hold due to GI bleed. Please re-evaluate during her follow up Orders not resulted at time of discharge: Pending orders 12/27/17 04:00 Basic Metabolic Panel AM 0400 Complete Blood Count w/o Diff [HEME] AM 0400 12/28/17 04:00 Basic Metabolic Panel AM 0400 Complete Blood Count w/o Diff [HEME] AM 0400 12/29/17 04:00 Basic Metabolic Panel AM 0400 Complete Blood Count w/o Diff [HEME] AM 0400 12/30/17 04:00 Basic Metabolic Panel AM 0400 Complete Blood Count w/o Diff [HEME] AM 0400 12/31/17 04:00 Basic Metabolic Panel AM 0400 Complete Blood Count w/o Diff [HEME] AM 0400 01/01/18 04:00 Basic Metabolic Panel AM 0400 Complete Blood Count w/o Diff [HEME] AM 0400 Date of Encounter: 12/26/17 Time of Encounter: 14:14 - Discharge Diagnosis (1) Atrial fibrillation with rapid ventricular response Priority: Secondary Status: Chronic (2) Diabetes Priority: Secondary Status: Chronic Qualifiers: Diabetes mellitus type: type 2 Diabetes mellitus group home insulin use: with termite treater helper use Diabetes mellitus complication status: with kidney complications Diabetes mellitus complication detail: with chronic kidney disease Chronic kidney disease stage: on chronic dialysis Qualified Code(s) : E11.22 - Type 2 diabetes mellitus with diabetic chronic kidney disease; N18.6 - End stage renal disease; Z99.2 - Dependence on renal dialysis; Z99.2 - Dependence on renal dialysis; Z99.2 - Dependence on renal dialysis; N18.6 - End stage renal disease; N18.6 - End stage renal disease; N18.6 - End stage renal disease; Z79.4 - technician terminal and repeater (current) use of insulin; Z79.4 - care home (current ) use of insulin; Z79.4 - care home (current) use of insulin; Z79.4 - technician terminal and repeater (current) use of insulin; Z99.2 - Dependence on renal dialysis (3) DVT prophylaxis Priority: Secondary Status: Acute (4) Stented coronary artery Priority: Secondary Status: Acute (5) ESRD (end stage renal disease) on dialysis Priority: Secondary Status: Chronic (6) COPD (chronic obstructive pulmonary disease) Priority: Secondary Status: Chronic Qualifiers: COPD type: unspecified COPD Qualified Code(s): J44.9 - Chronic obstructive pulmonary disease, unspecified (7) Hypertension Priority: Secondary Status: Chronic Qualifiers: Hypertension type: essential hypertension Qualified Code(s): I10 - Essential (primary) hypertension (8) GI bleeding Priority: Primary Status: Acute Qualifiers: GI bleed type/associated pathology: unspecified gastrointestinal hemorrhage type Qualified Code(s): K92.2 - Gastrointestinal hemorrhage, unspecified (9) Elevated troponin Priority: Secondary Status: Acute (10) CHF (congestive heart failure) Priority: Secondary Status: Chronic Qualifiers: Heart failure type: diastolic Heart failure chronicity: chronic Qualified Code(s): I50.32 - Chronic diastolic (congestive) heart failure Hospital course: Ms. Madden is a 67 year old female with PMH Of Afib on coumadin, CHF, CAD, DM, ESRD on HD, HTN who was admitted for GI bleed. She was seen by Gi and had a colonoscopy with showed a bleeding colonic dieulogy with was treated with APC, and internal hemorrhoids. PPI was added to her home meds. Pt's Plavix and coumadin were discontinued given the GI bleed and cardiology evaluation was requested. Aspirin was restarted once cleared by GI and coumadin and plavix were to remain on hold until outpatient follow up. Pt continue to receive hemodialysis as per her outpatient hemodialysis schedule. At this time she is back to her baseline status, H&H within acceptable range, no acute bleeding reported. Pt will be discharged to home after hemodialysis today. Pt to follow up with PCP and cardiology after discharge. Pt in agreement with the discharge care and plan. Discharge discussed with: patient, nurse, social work, case management - Time Spent with Patient Total time spent providing and/or coordinating discharge services: Greater than 30 minutes - Discharge Medications Prescriptions: Omeprazole [PriLOSEC] 40 mg PO BID #30 cap Home Medications: Gabapentin [Neurontin] 100 mg PO TID 03/17/17 [History] Insulin Glargine,Hum.rec.anlog [Lantus Solostar] 18 - 20 unit SQ BID 03/17/17 [ History] Insulin LISPRO [Humalog] 4 - 16 unit SQ TIDWM 03/17/17 [History] Metoprolol XL (24 HR) Succ [Toprol Xl] 100 mg PO DAILY #30 tab.er.24h 03/22/17 [ Rx] Isosorbide MONOnitrate [Isosorbide Mononitrate ER] 120 mg PO DAILY 06/20/17 [ History] Aspirin 81 mg PO DAILY #30 tab.chew 06/21/17 [Rx] Allopurinol [Zyloprim 100 MG] 200 mg PO DAILY 07/24/17 [History] Calcium Acetate [Phos-LO] 1,334 mg PO TIDWM 07/24/17 [History] Amiodarone [Cordarone] 200 mg PO DAILY #30 tablet 09/22/17 [Rx] Albuterol Sulfate [Albuterol Inhaler] 2 puff IH Q6HR PRN 10/26/17 [History] Citalopram Hydrobromide [Citalopram HBr] 10 mg PO DAILY 10/26/17 [History] hydrALAZINE [HydrALAZINE] 25 mg PO BID #60 tablet 11/08/17 [Rx] Furosemide [Lasix] 20 mg PO BID 12/19/17 [History] Omeprazole [PriLOSEC] 40 mg PO BID #30 cap 12/26/17 [Rx] Allergies/Adverse Reactions: 3 Allergy/AdvReac Type Severity Reaction Status Date / Time bacitracin Allergy Rash Verified 07/24/17 10:16 [From Neosporin ([id number])] Neomycin Allergy Rash Verified 07/24/17 10:16 [From Neosporin ([id number])] polymyxin B Allergy Rash Verified 07/24/17 10:16 [From Neosporin ([id number])] atorvastatin AdvReac Cramping Verified 07/24/17 10:16 of the Muscles plastic Allergy Rash Uncoded 07/24/17 10:16 tape Allergy Rash Uncoded 07/24/17 10:16 Date of admission: 12/19/17 14:39 Primary care physician: Eleazar Calhoun MD Consults: 12/19/17 14:52 Consult to Gastroenterology [CONS] Routine Consulting Provider: Gastroenterology Iliana Reason for Consult: GI bleed Time Notified: 14:52 Call Completed: Yes 12/19/17 18:20 Consult to Cardiology [CONS] Routine Comment: Consulting Provider: Cardiology Iliana Reason for Consult: H/O CAD and A-fib. Presents today in A-fib RVR with GI bleeding. Call to discuss the need to continue Warfarin. Time Notified: 18:21 Call Completed: Yes 12/20/17 14:07 Consult to Nephrology [CONS] Routine Consulting Provider: [facility] RAISA Reason for Consult: Dialysis management Call Completed: Yes 12/21/17 08:30 Consult to Dialysis [CONS] ONCE 12/24/17 08:30 Consult to Dialysis [CONS] ONCE 12/26/17 08:15 Consult to Dialysis [CONS] ONCE Discharging clinician: Caroline French Anticipated date of discharge: 12/26/17 - Constitutional Vitals: Temp Pulse Resp BP Pulse Ox 98.1 F 63 18 136/68 95 12/26/17 13:15 12/26/17 10:52 12/26/17 13:15 12/26/17 14:06 12/26/17 10:52 General appearance: Present: A&O X 3, no acute distress, obese, answers questions appropriately - Head Head exam: Present: atraumatic, normocephalic - Eye Eye exam: Present: conjuntiva pink, sclera anicteric - Respiratory Respiratory exam: Present: CTAB. Absent: respiratory distress, wheezes - Cardiovascular Cardiovascular exam: Present: RRR, +S1, +S2 - GI/Abdominal GI/Abdominal exam: Present: normal bowel sounds, soft, no peritoneal signs. Absent: distended, tenderness - Extremities Exam Extremities exam: Present: warm, radial pulses palpable and symmetrical. Absent : calf tenderness - Neurological Exam Neurological exam: Present: oriented X3 - Psychiatric Psychiatric exam: Present: normal affect, normal mood - Patient Status Disposition: Home, Self-Care Condition: Good Functional capacity at discharge: independent ambulation Overall status at discharge: patient is back to baseline - Discharge Instructions Follow Up With: Syd Barrientos [Provider Group] (Office will call you will a follow up appointment when needed) Eleazar Calhoun MD [Primary Care Provider] - 01/04/18 11:00 am (Please follow up as schedule...) Additional Instructions: Please follow up with your primary care physician within five days after your discharge from the hospital. Please follow up with your gameroom technician within five days after your discharge from the hospital. Please continue to hold your home dose of coumadin and plavix due to your recent GI bleed. Ask your PCP and gameroom technician about resuming these medications during your follow up appointment. Closely monitor your blood pressure at home. Hold your home blood pressure medications for systolic blood pressure less than 100. Prilosec 40mg twice a day has been added to your home medications. Please resume all other home medications as prescribed by your primary care physician. Continue your hemodialysis sessions as prescribed by your buckle stapler. - Diet and Activity Activity: resume usual activities as tolerated Diet: diabetic diet, low fat, low cholesterol, low salt diet - VTE Documentation of Mechanical Device: Intermittent pneumatic compression device
[2017-12-26 16:43] VITALS: BP 128/63
== END 2017-12-26 17:34 | disposition home or self-care (01) | DRG 377 ==
LOC: EMEROO 09:18 → 2ANU 09:18 → SUATTDRO 14:39
PROVIDERS: ADMIT Internal Medicine; ATTEND Internal Medicine
PROC: ENDOCCB (2017-12-24 14:00)

== ENCOUNTER 2018-04-12 21:56 | Observation (INO) ==
--- NOTE | 2018-04-12 22:11 | Emergency Department Note ---
Disposition Clinical Impression: Paroxysmal A-fib, ESRD (end stage renal disease), Exertional dyspnea Disposition: Admitted As Inpatient Condition: Fair Time of Disposition: 23:46 General Adult HPI - General Chief complaint: ED Arrhythmia/Palpitations Stated complaint: KYLAH/ elevated HR Time Seen by Provider: 04/12/18 22:04 Source: patient Mode of arrival: ambulatory Limitations: no limitations Nursing Notes Reviewed: Yes Vital Signs Reviewed: Yes - History of Present Illness HPI Narrative: Patient presents to the ED with the chief complaint of exertional dyspnea. Patient has a history of A. fib but has been on and off medication over the last year. States that she is supposed to be taking amiodarone, but is unsure if she takes that her not. She is a dialysis patient, Sunday, Sunday, Sunday. 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 She is been having exertional dyspnea, generalized weakness and fatigue. Also having palpitations. Denies any fever, chills. She has been having some chest heaviness which she states is typical with her palpitations. Denies any abdominal pain, nausea, vomiting, diarrhea, diaphoresis. Pain Scale: 5 - Related Data Home Medications Medication Instructions Recorded Confirmed Gabapentin [Neurontin] 100 mg PO TID 03/17/17 04/13/18 Insulin Glargine,Hum.rec.anlog 18 - 20 unit SQ BID 03/17/17 04/13/18 [Lantus Solostar] Insulin LISPRO [Humalog] 4 - 16 unit SQ TIDWM 03/17/17 04/13/18 Isosorbide MONOnitrate [Isosorbide 120 mg PO DAILY 06/20/17 04/13/18 Mononitrate ER] Allopurinol [Zyloprim 100 MG] 200 mg PO DAILY 07/24/17 04/13/18 Calcium Acetate [Phos-LO] 1,334 mg PO TIDWM 07/24/17 04/13/18 Albuterol Sulfate [Albuterol 2 puff IH Q6HR PRN 10/26/17 04/13/18 Inhaler] Furosemide [Lasix] 20 mg PO BID 12/19/17 04/13/18 Omeprazole [PriLOSEC] 40 mg PO DAILY 04/13/18 04/13/18 Previous Rx's Medication Instructions Recorded Metoprolol XL (24 HR) Succ [Toprol 100 mg PO DAILY #30 tab.er.24h 03/22/17 Xl] Aspirin 81 mg PO DAILY #30 tab.chew 06/21/17 Amiodarone [Cordarone] 200 mg PO DAILY #30 tablet 09/22/17 hydrALAZINE [HydrALAZINE] 25 mg PO BID #60 tablet 11/08/17 Allergies Allergy/AdvReac Type Severity Reaction Status Date / Time bacitracin Allergy Rash Verified 04/12/18 21:57 [From Neosporin ([id number])] Neomycin Allergy Rash Verified 04/12/18 21:57 [From Neosporin ([id number])] polymyxin B Allergy Rash Verified 04/12/18 21:57 [From Neosporin ([id number])] atorvastatin AdvReac Cramping Verified 04/12/18 21:57 of the Muscles plastic Allergy Rash Uncoded 04/12/18 21:57 tape Allergy Rash Uncoded 04/12/18 21:57 Review of Systems: As reviewed in the HPI. All other systems reviewed are negative or normal. Past Medical History - Past Medical History Attestation: Yes The following information was validated with the patient. Source: patient Medical history: Reports: atrial fibrillation, CHF, coronary artery disease, DVT , diabetes, dialysis, hypertension, myocardial infarction, renal disease Surgical history: Reports: angioplasty/stent, cholecystectomy, hysterectomy, other Psychiatric history: Reports: no psych history PROCESS SAFETY ENGINEER history: Reports: no PROCESS SAFETY ENGINEER history - Social History Smoking Status: Never smoker Smokeless Tobacco Status: No Alcohol use: Reports: none Drug use: Reports: none Physical Exam CONSTITUTIONAL: [well appearing in no acute distress] SKIN: [Warm, dry, and intact without rash] EYES: [extraocular movements are grossly intact, clear conjunctiva] HENT: [Normocephalic, atraumatic, moist mucus membranes] NECK: [no obvious swelling, normal range of motion] PULMONARY: [normal chest rise and fall, no respiratory distress or stridor CARDIOVASCULAR: [Tachycardic, distal extremities are warm and well perfused, right-sided fistula] GASTROINSTESTINAL: [nondistended, non-tender] GENITOURINARY: [deferred] NEUROLOGIC: [normal speech, moves all extremities] MUSCULOSKELETAL: [no gross deformities, atraumatic, mild pitting edema bilaterally] PSYCHIATRIC: [normal mood and affect] - General Limitations: no limitations General appearance: alert, in no apparent distress Course Course Narrative: Patient presenting with exertional dyspnea and palpitations. Has a history of A. fib that she is unsure about what medications she is supposed to be taking. Heart rate is in the 130s, but seems regular. Her EKG was reviewed and seems consistent with her previous EKG, which is documented by cardiology as A. fib. We will workup and likely admit. - Reevaluation(s) Reevaluation #1: Patient admitted to the hospital service. I canceled the urinalysis, as patient states that she is basically anuric Vital Signs Temperature 98.3 F 04/12/18 21:58 Pulse Rate 138 04/12/18 21:58 Respiratory Rate 20 04/12/18 21:58 Blood Pressure 144/104 04/12/18 21:58 O2 Sat by Pulse Oximetry 93 04/12/18 21:58 Temperature 98.3 F 04/13/18 00:35 Pulse Rate 115 04/13/18 00:35 Respiratory Rate 20 04/13/18 00:35 Blood Pressure 132/83 04/13/18 00:35 O2 Sat by Pulse Oximetry 92 04/13/18 00:35 Oxygen Delivery Oxygen Delivery Room Air Medical Decision Making - Medical Records Medical records reviewed: Yes I reviewed the patient's medical records. - Lab Data Lab results reviewed: Yes I reviewed the patient's lab results. Result diagrams: 04/12/18 22:20 04/12/18 22:20 Lab Results 04/12/18 04/12/18 04/12/18 Range/Units 22:20 22:20 22:20 WBC 8.4 (4.3-11.1) K/mcL RBC 3.45 L (3.82-4.97) M/mcL Hgb 10.7 L (11.5-15.4) g/dL Hct 32.5 L (35.3-44.9) % MCV 94.2 (83.0-100.0) fL MCH 31.0 (28.0-33.3) pg MCHC 32.9 (31.6-35.5) g/dL RDW 14.8 H (11.5-14.5) % Plt Count 163 (140-400) K/mcL MPV 10.2 (9.4-12.4) fL Immature Gran % 0.4 (0-4) % Seg Neutrophils % 71.4 % Lymphocytes % 18.2 % Monocytes % 6.9 % Eosinophils % 2.9 % Basophils % 0.2 % Neutrophils # 6.0 (1.6-8.9) K/mcL Lymphocytes # 1.5 (0.6-4.6) K/mcL Monocytes # 0.6 (0.0-1.3) K/mcL Eosinophils # 0.2 (0.0-0.6) K/mcL Basophils # 0.0 (0.0-0.2) K/mcL PT 15.4 H (9.4-12.1) Seconds INR 1.4 APTT 56.8 H (26.0-36.0) Seconds Sodium 143 (136-145) mEq/L Potassium 3.8 (3.5-5.1) mEq/L Chloride 99 (98-107) mEq/L Carbon Dioxide 22 L (23-29) mEq/L BUN 31 H (8-23) mg/dL Creatinine 3.96 H (0.60-1.20) mg/dL Est GFR ( Amer) 14 L (> 60) Est GFR (Non-Af Amer) 11 L (> 60) BUN/Creatinine Ratio 8 (6-26) Glucose 118 H (70-105) mg/dL Calculated Osmolality 304 H (280-300) Lactic Acid (0.5-2.2) mmol/L Calcium 8.6 (8.6-10.3) mg/dL Magnesium 1.9 (1.6-2.6) mg/dL Troponin I 0.03 (< 0.04) ng/mL TSH 2.469 (0.340-5.600) mcIU/mL 04/12/18 Range/Units 22:20 WBC (4.3-11.1) K/mcL RBC (3.82-4.97) M/mcL Hgb (11.5-15.4) g/dL Hct (35.3-44.9) % MCV (83.0-100.0) fL MCH (28.0-33.3) pg MCHC (31.6-35.5) g/dL RDW (11.5-14.5) % Plt Count (140-400) K/mcL MPV (9.4-12.4) fL Immature Gran % (0-4) % Seg Neutrophils % % Lymphocytes % % Monocytes % % Eosinophils % % Basophils % % Neutrophils # (1.6-8.9) K/mcL Lymphocytes # (0.6-4.6) K/mcL Monocytes # (0.0-1.3) K/mcL Eosinophils # (0.0-0.6) K/mcL Basophils # (0.0-0.2) K/mcL PT (9.4-12.1) Seconds INR APTT (26.0-36.0) Seconds Sodium (136-145) mEq/L Potassium (3.5-5.1) mEq/L Chloride (98-107) mEq/L Carbon Dioxide (23-29) mEq/L BUN (8-23) mg/dL Creatinine (0.60-1.20) mg/dL Est GFR ( Amer) (> 60) Est GFR (Non-Af Amer) (> 60) BUN/Creatinine Ratio (6-26) Glucose (70-105) mg/dL Calculated Osmolality (280-300) Lactic Acid 1.0 (0.5-2.2) mmol/L Calcium (8.6-10.3) mg/dL Magnesium (1.6-2.6) mg/dL Troponin I (< 0.04) ng/mL TSH (0.340-5.600) mcIU/mL - Radiology Data Radiology results reviewed: Yes I reviewed the patient's radiology results. - EKG Data EKG #1 EKG attestation: Yes I reviewed and interpreted this EKG. EKG results narrative: Chest: Tachycardia, rate 136, normal intervals, left axis deviation, LVH, no acute ischemic changes compared to previous Attestation Statement - Attestation Attestation: I examined this patient and my medical decision-making was reviewed with the Resident Physician. I agree with the documented findings, disposition and treatment plan as described except to the extent set forth below. Tachycardia, palpitations, EKG consistent with atrial fibrillation. Heart rate is improved with metoprolol. We will admit for further management given exertional dyspnea as well as A. fib with rapid ventricular response. I spent greater than 35 minutes of critical care time resuscitating this acutely ill patient suffering from atrial fibrillation with rapid ventricular response. This was excluding billable procedures.
[2018-04-12 22:30] LABS: Basophils % 0.2 %; Eosinophils # 0.2 K/mcL (0.0-0.6); Eosinophils % 2.9 %; Hematocrit 32.5 % (35.3-44.9); Hemoglobin 10.7 g/dL (11.5-15.4); Immature Granulocytes % 0.4 % (0-4); Lymphocytes # 1.5 K/mcL (0.6-4.6); Lymphocytes % 18.2 %; Mean Corpuscular HGB Conc 32.9 g/dL (31.6-35.5); Mean Corpuscular Volume 94.2 fL (83.0-100.0); Mean Platelet Volume 10.2 fL (9.4-12.4); Monocytes # 0.6 K/mcL (0.0-1.3); Monocytes % 6.9 %; Platelet Count 163 K/mcL (140-400); Red Blood Count 3.45 M/mcL (3.82-4.97); Red Cell Distribution Width 14.8 % (11.5-14.5); Segmented Neutrophils % 71.4 %
[2018-04-12 22:37] LABS: INR 1.4; Prothrombin Time 15.4 Seconds (9.4-12.1)
[2018-04-12 22:39] LABS: Activated Partial Thrombo Time 56.8 Seconds (26.0-36.0)
[2018-04-12 22:52] LABS: Calcium 8.6 mg/dL (8.6-10.3); Magnesium 1.9 mg/dL (1.6-2.6); Potassium 3.8 mEq/L (3.5-5.1); Troponin I 0.03 ng/mL (< 0.04)
[2018-04-12 23:06] LABS: Thyroid Stimulating Hormone 2.469 mcIU/mL (0.340-5.600)
[2018-04-12] MEDS: *HR* Metoprolol 5 MG/5 ML VIAL IVP SCH (23:32)
[2018-04-13] MEDS: *HR* Metoprolol 5 MG/5 ML VIAL IVP SCH (00:03)
[2018-04-13] MEDS ORDERED: Ondansetron 4 MG/2 ML VIAL IVP PRN (01:52)
[2018-04-13] MEDS ORDERED: Albuterol 2.5 MG/3 ML NEBULIZER IH PRN (02:37)
[2018-04-13] MEDS ORDERED: D5% in Water 1,000 ML IVC PRN (02:46)
[2018-04-13] MEDS ORDERED: *HR* Dextrose 50 % in Water (Syg) 50 ML SYRINGE IVP PRN (02:46)
[2018-04-13] MEDS ORDERED: Dextrose Gel 15 GM/37.5 ML TUBE PO PRN ×2 (02:46)
[2018-04-13] MEDS ORDERED: Acetaminophen 325 MG TABLET PO PRN (02:55)
[2018-04-13] MEDS ORDERED: *HR* Metoprolol 5 MG/5 ML VIAL IVP PRN (02:55)
[2018-04-13] MEDS ORDERED: Naloxone 0.4 MG/ML INJ IVP PRN (02:55)
[2018-04-13] MEDS ORDERED: Insulin LISPRO 300 UNITS/3 ML VIAL SQ SCH (03:00)
--- NOTE | 2018-04-13 03:31 | Internal Med History&Physical ---
Date of Encounter: 04/13/18 Time of Encounter: 03:31 Internal Medicine - H&P: HPI Chief complaint: "Heart palpitations" Admitted From: Emergency Dept Plans for Post Hospital Care: Home History of present illness: Ms. Madden is a 68 year old female with PMH of atrial fibrillation who presented to ED today with heart palpitations and sensation of increased heart rate. She states that symptoms started earlier today. She had some accompanied SOB. She denies chest pain. She has a history of atrial fibrillation and is followed by hand frame surgical elastic knitter Dr. Rios. She recently had trouble filling home amiodarone, and hand frame surgical elastic knitter decided to discontinue it. She states that she has not taken the amiodarone in 3 weeks. She did fine during this time until today. She denies fever, chills, changes in bladder, and changes in bowels. She does have nausea and vomiting at this time, but she thinks it may be related to the Phos Lo that she takes. She has no other complaints at this time. In the ED, creatinine was at her ESRD baseline. She get dialysis MWF and had her session today. CXR showed no acute cardiopulmonary process. HR was 138 upon arrival to ED. She received 2 doses of metoprolol IV 5 mg, and HR improved to 115. Past Med Surg Social Fam HX - Past Medical History Attestation: Yes The following information was validated with the patient. Source: patient Medical history: atrial fibrillation, CHF, coronary artery disease, DVT, diabetes, dialysis, hypertension, myocardial infarction, renal disease Additional medical history: hemodialysis Sunday, Sunday, Sunday Psychiatric history: no psych history - Past Surgical History Surgical History: angioplasty/stent, cholecystectomy, hysterectomy, other Additional surgical history: heart stents x4 - Social History Smoking Status: Never smoker Smokeless Tobacco Status: No Alcohol use: none Drug use: none - Family History Father Family Member Ethnicity: Non- Living Status: Hx Family Cardiac Disorders: Yes ([place]) Mother Adopted: No Family Member Ethnicity: Non- Living Status: Hx Family Cardiac Disorders: Yes Hx Family Respiratory Disorders: Yes Hx Family Cancer: Yes Hx Family GI Disorders: No Hx Family Endocrine Disorder: Yes Hx Family Neuromuscular Disorders: No Hx Family Neurologic Disorders: No Hx Family HEENT Disorders: No Hx Family Autoimmune Disorders: No Brother Adopted: No Family Member Ethnicity: Non- Living Status: Still Living Hx Family Cardiac Disorders: Yes Hx Family Respiratory Disorders: No Hx Family Cancer: No Hx Family GI Disorders: No Hx Family Endocrine Disorder: Yes Hx Family Neuromuscular Disorders: No Hx Family Neurologic Disorders: No Hx Family HEENT Disorders: No Hx Family Autoimmune Disorders: No Sister Family Member Ethnicity: Non- Living Status: Hx Family Cardiac Disorders: Yes (HTN) Hx Family Respiratory Disorders: No Hx Family Cancer: Yes (Ovarian) Hx Family GI Disorders: No Hx Family Endocrine Disorder: Yes (DM) Hx Family Neuromuscular Disorders: No Hx Family Neurologic Disorders: No Hx Family HEENT Disorders: No Hx Family Autoimmune Disorders: No - Additional Family History Additional family history: Family history verified with patient. Internal Medicine - H&P: Meds Gabapentin [Neurontin] 100 mg PO TID 03/17/17 [History] Insulin Glargine,Hum.rec.anlog [Lantus Solostar] 18 - 20 unit SQ BID 03/17/17 [ History] Insulin LISPRO [Humalog] 4 - 16 unit SQ TIDWM 03/17/17 [History] Metoprolol XL (24 HR) Succ [Toprol Xl] 100 mg PO DAILY #30 tab.er.24h 03/22/17 [ Rx] Isosorbide MONOnitrate [Isosorbide Mononitrate ER] 120 mg PO DAILY 06/20/17 [ History] Aspirin 81 mg PO DAILY #30 tab.chew 06/21/17 [Rx] Allopurinol [Zyloprim 100 MG] 200 mg PO DAILY 07/24/17 [History] Calcium Acetate [Phos-LO] 1,334 mg PO TIDWM 07/24/17 [History] Amiodarone [Cordarone] 200 mg PO DAILY #30 tablet 09/22/17 [Rx] Albuterol Sulfate [Albuterol Inhaler] 2 puff IH Q6HR PRN 10/26/17 [History] hydrALAZINE [HydrALAZINE] 25 mg PO BID #60 tablet 11/08/17 [Rx] Furosemide [Lasix] 20 mg PO BID 12/19/17 [History] Omeprazole [PriLOSEC] 40 mg PO DAILY 04/13/18 [History] 3 Allergy/AdvReac Type Severity Reaction Status Date / Time bacitracin Allergy Rash Verified 04/12/18 21:57 [From Neosporin ([id number])] Neomycin Allergy Rash Verified 04/12/18 21:57 [From Neosporin ([id number])] polymyxin B Allergy Rash Verified 04/12/18 21:57 [From Neosporin ([id number])] atorvastatin AdvReac Cramping Verified 04/12/18 21:57 of the Muscles plastic Allergy Rash Uncoded 04/12/18 21:57 tape Allergy Rash Uncoded 04/12/18 21:57 All Systems PM: A 10-system review of systems was performed and is negative for pertinent findings except as documented above in the HPI. - Constitutional Vitals: Temp Pulse Resp BP Pulse Ox 98.3 F 115 20 132/83 92 04/13/18 00:35 04/13/18 00:35 04/13/18 00:35 04/13/18 00:35 04/13/18 00:35 General appearance: Present: cooperative, mild distress (Due to nausea/vomiting) , A&O X 3, pleasant, obese, answers questions appropriately - Head Head exam: Present: atraumatic, normocephalic - Eye Eye exam: Present: EOMI, PERRL. Absent: conjunctival injection, nystagmus, scleral icterus - ENT ENT exam: Present: mucous membranes moist, normal external ear exam, normal oropharynx - Neck Neck exam general surgery: Present: supple, trachea midline. Absent: lymphadenopathy, tenderness, thyromegaly - Respiratory Respiratory exam: Present: CTAB. Absent: accessory muscle use, rales, rhonchi, wheezes Additional comments: Normal WOB - Cardiovascular Cardiovascular exam: Present: +S1, +S2. Absent: diastolic murmur, gallop, rubs , systolic murmur Additional comments: Tachycardic, irregularly irregular rhythm, no BLE edema - GI/Abdominal GI/Abdominal exam: Present: normal bowel sounds, soft. Absent: distended, hepatomegaly, mass, splenomegaly, tenderness - Neurological Exam Neurological exam: Present: alert, CN II-XII intact, oriented X3, no focal deficits, strengths equal and symetr throughout. Absent: motor sensory deficit , facial droop, speech deficit - Psychiatric Psychiatric exam: Present: normal affect, normal mood. Absent: agitated, anxious, depressed - Skin Skin exam: Present: dry, warm. Absent: cyanosis, rash Additional comments: Bandaging on RLE Internal Med - H&P Results - Labs CBC & Chem 7: 04/12/18 22:20 04/12/18 22:20 - Assessment and plan (1) Paroxysmal A-fib Current Visit: Yes Status: Acute Assessment and plan: Improved with 2 doses of metoprolol 5 mg IV in ED. Currently with no palpitations. ECHO on 11/02/17 showed LVEF 50-55%. Admit for observation with telemetry. Continue home medications, including restarting amiodarone in AM. Will order IV metoprolol PRN. Currently not anticoagulated. Will start renally dosed lovenox for DVT prophylaxis as per below. Will consult cardiology in AM, as she follows up with them and they made recent medication changes. Will await further recommendations from cardiology. (2) Nausea & vomiting Current Visit: Yes Status: Acute Assessment and plan: Patient thinks this is related to her Phos Lo. We will make sure she gets this medication with meals only. Start zofran 4 mg IV Q6H PRN nausea/vomiting. Qualifiers: Vomiting type: unspecified Vomiting Intractability: non-intractable Qualified Code(s): R11.2 - Nausea with vomiting, unspecified (3) ESRD (end stage renal disease) Current Visit: Yes Status: Chronic Assessment and plan: Will consult nephrology in AM to coordinate dialysis. Continue dialysis per MWF schedule. Recheck BMP in AM. (4) Anemia Current Visit: Yes Status: Chronic Assessment and plan: Likely secondary to renal disease. Hemoglobin today above baseline. Nephrology consulted as per above; appreciate input. Repeat CBC in AM. Qualifiers: Anemia type: unspecified type Qualified Code(s): D64.9 - Anemia, unspecified (5) Pressure ulcer of right leg, unstageable Current Visit: Yes Status: Chronic Assessment and plan: Chronic issue. Currently bandaged. No signs or symptoms of infection. Will consult wound care. (6) CAD (coronary artery disease) Current Visit: Yes Status: Chronic Assessment and plan: No concern for ACS at this time. Troponin WNL in ED. Cardiology consulted as per above; appreciate input. Continue home medications. Qualifiers: Coronary Disease-Associated Artery/Lesion type: [place] artery [place] vs. transplanted heart: [place] heart Associated angina: with unstable angina Qualified Code(s): I25.110 - Atherosclerotic heart disease of [place] coronary artery with unstable angina pectoris (7) COPD (chronic obstructive pulmonary disease) Current Visit: Yes Status: Chronic Assessment and plan: Continue home medications. Start albuterol nebs Q4H PRN SOB/wheezing. Continue home supplemental O2 2L NC QHS. Qualifiers: COPD type: unspecified COPD Qualified Code(s): J44.9 - Chronic obstructive pulmonary disease, unspecified (8) Diabetes Current Visit: Yes Status: Chronic Assessment and plan: Start accuchecks and moderate dose SSI QID AC/HS. Continue home long-acting insulin at lower dose starting in AM. Qualifiers: Diabetes mellitus type: type 2 Diabetes mellitus bed bug exterminator insulin use: with bed bug exterminator use Diabetes mellitus complication status: with kidney complications Diabetes mellitus complication detail: with chronic kidney disease Chronic kidney disease stage: on chronic dialysis Qualified Code(s) : E11.22 - Type 2 diabetes mellitus with diabetic chronic kidney disease; N18.6 - End stage renal disease; Z99.2 - Dependence on renal dialysis; Z99.2 - Dependence on renal dialysis; Z99.2 - Dependence on renal dialysis; N18.6 - End stage renal disease; N18.6 - End stage renal disease; N18.6 - End stage renal disease; Z79.4 - half-way (current) use of insulin; Z79.4 - half-way (current ) use of insulin; Z79.4 - terminal supervisor (current) use of insulin; Z79.4 - half-way (current) use of insulin; Z99.2 - Dependence on renal dialysis (9) Hypertension Current Visit: Yes Status: Chronic Assessment and plan: Continue home medications. Qualifiers: Hypertension type: essential hypertension Qualified Code(s): I10 - Essential (primary) hypertension (10) Chronic diastolic CHF (congestive heart failure) Current Visit: Yes Status: Chronic Assessment and plan: Looks euvolemic at this time. Cardiology consulted as per above; appreciate input. Continue home medications. (11) DVT prophylaxis Current Visit: Yes Status: Acute Assessment and plan: Start SCDs and renally dosed lovenox 30 mg SQ QD. - Time Spent With Patient Total time spent is greater than 50% in coordination of care (as documented) at patient's floor/unit and/or counseling patient: less than 15 minutes
[2018-04-13] MEDS ORDERED: *HR* Enoxaparin 30 MG/0.3 ML SYRINGE SQ SCH (06:00)
[2018-04-13 06:18] LABS: Basophils % 0.4 %; Eosinophils # 0.1 K/mcL (0.0-0.6); Eosinophils % 1.1 %; Hematocrit 31.4 % (35.3-44.9); Hemoglobin 9.8 g/dL (11.5-15.4); Immature Granulocytes % 0.3 % (0-4); Lymphocytes # 1.2 K/mcL (0.6-4.6); Mean Corpuscular HGB Conc 31.2 g/dL (31.6-35.5); Mean Corpuscular Hemoglobin 29.7 pg (28.0-33.3); Mean Corpuscular Volume 95.2 fL (83.0-100.0); Mean Platelet Volume 10.8 fL (9.4-12.4); Monocytes # 0.5 K/mcL (0.0-1.3); Monocytes % 6.9 %; Neutrophils # 5.3 K/mcL (1.6-8.9); Platelet Count 156 K/mcL (140-400); Red Cell Distribution Width 14.8 % (11.5-14.5); Segmented Neutrophils % 74.3 %
[2018-04-13 06:32] LABS: Calcium 8.5 mg/dL (8.6-10.3); Magnesium 1.8 mg/dL (1.6-2.6); Phosphorous 6.4 mg/dL (2.7-4.5); Potassium 3.7 mEq/L (3.5-5.1)
[2018-04-13] MEDS: Furosemide 20 MG TABLET PO SCH ×2 (07:31→08:15)
[2018-04-13] MEDS: Gabapentin 100 MG CAPSULE PO SCH ×2 (07:32→08:15)
[2018-04-13] MEDS: Insulin LISPRO 300 UNITS/3 ML VIAL SQ SCH ×2 (07:47→11:59)
[2018-04-13] MEDS: Calcium Acetate 667 MG CAPSULE PO SCH ×2 (08:15→12:00)
[2018-04-13] MEDS ORDERED: Insulin DETEMIR 100 UNIT/ML X5UNITS SQ SCH (09:00)
[2018-04-13] MEDS ORDERED: hydrALAZINE 25 MG TABLET PO SCH (09:00)
[2018-04-13] MEDS ORDERED: Isosorbide MONOnitrate (24 HR) 60 MG TAB.ER.24H PO SCH (09:00)
[2018-04-13] MEDS ORDERED: Aspirin 81 MG TAB.CHEW PO SCH (09:00)
[2018-04-13] MEDS ORDERED: *HR* Amiodarone 200 MG TABLET PO SCH (09:00)
[2018-04-13] MEDS ORDERED: Metoprolol XL (24 HR) Succ 50 MG TAB.ER.24H PO SCH (09:00)
--- NOTE | 2018-04-13 09:14 | Cardiology Consult Note ---
<Mirtha Wagoner - Last Filed: 04/13/18 09:45> Date of Encounter: 04/13/18 Time of Encounter: 08:00 Assessment and Plan (1) Paroxysmal A-fib Current Visit: Yes Status: Acute Known hx of PAF, previously on Coumadin but d/c'ed in December 2017 d/t acute GI bleed. Presented in Afib with RVR, NSR upon exam this AM. It is unclear if patient was taking medications at home. Recent TTE showed normal LVEF. Resume home BB, Toprol XL. Will stop amiodarone as patient is no longer taking as of February 2018 per outpatient Cardio notes. Discussed possibility of re-starting coumadin for AC, however patient declines. She is aware of increase risk for CVA. Continue asa only. (2) Anemia Current Visit: Yes Status: Chronic Qualifiers: Anemia type: unspecified type Qualified Code(s): D64.9 - Anemia, unspecified Discussion w patient/family: The assessment and plan as outlined above was discussed with the patient and/or family members who expressed understanding and agreement. All questions were answered. Thank you for involving us in the care of your patient. Please call with any questions. The patient will be discussed and reviewed with Dr. Dougherty; changes to be made accordingly. History of Present Illness Consult date: 04/13/18 Requesting physician: Juve Begum Consult reason: Afib Chief complaint: Afib, shortness of breath History of present illness: Ms. Madden is a 68 year old female with PMHx significant of CAD s/p PCI, ESRD on HD, DMII, HTN, PAF who presented to the ED with complaints of worsening shortness of breath and endorses that "afib was acting up." Reports she was started on sodium diosulfate at dialysis and since then (x3 weeks) has had episodes of nausea with vomiting. Reports poor appetite. It is unclear if she has been taking her medications as prescribed. Per last Cardiology outpatient note, she was off amiodarone. Upon exam today she is in NSR. Prior CV testing: LHC 11/08/17: mild 1vCAD, patent stents. Limited TTE 11/02/17: EF 50-55% TTE 09/2017: moderate cLVH, EF 55%, possible pHTN, moderate , peak and MG 49 and 30 respectively. Past Med Surg Social Fam HX - Past Medical History Attestation: Yes The following information was validated with the patient. Source: patient Medical history: atrial fibrillation, CHF, coronary artery disease, DVT, diabetes, dialysis, hypertension, myocardial infarction, renal disease Additional medical history: hemodialysis Sunday, Sunday, Sunday Psychiatric history: no psych history - Past Surgical History Surgical History: angioplasty/stent, cholecystectomy, hysterectomy, other Additional surgical history: heart stents x4 - Social History Smoking Status: Never smoker Smokeless Tobacco Status: No Alcohol use: none Drug use: none - Family History Father Family Member Ethnicity: Non- Living Status: Hx Family Cardiac Disorders: Yes (CT) Mother Adopted: No Family Member Ethnicity: Non- Living Status: Hx Family Cardiac Disorders: Yes Hx Family Respiratory Disorders: Yes Hx Family Cancer: Yes Hx Family GI Disorders: No Hx Family Endocrine Disorder: Yes Hx Family Neuromuscular Disorders: No Hx Family Neurologic Disorders: No Hx Family HEENT Disorders: No Hx Family Autoimmune Disorders: No Brother Adopted: No Family Member Ethnicity: Non- Living Status: Still Living Hx Family Cardiac Disorders: Yes Hx Family Respiratory Disorders: No Hx Family Cancer: No Hx Family GI Disorders: No Hx Family Endocrine Disorder: Yes Hx Family Neuromuscular Disorders: No Hx Family Neurologic Disorders: No Hx Family HEENT Disorders: No Hx Family Autoimmune Disorders: No Sister Family Member Ethnicity: Non- Living Status: Hx Family Cardiac Disorders: Yes (HTN) Hx Family Respiratory Disorders: No Hx Family Cancer: Yes (Ovarian) Hx Family GI Disorders: No Hx Family Endocrine Disorder: Yes (DM) Hx Family Neuromuscular Disorders: No Hx Family Neurologic Disorders: No Hx Family HEENT Disorders: No Hx Family Autoimmune Disorders: No Medications and Allergies Gabapentin [Neurontin] 100 mg PO TID 03/17/17 [History] Insulin Glargine,Hum.rec.anlog [Lantus Solostar] 18 - 20 unit SQ BID 03/17/17 [ History] Insulin LISPRO [Humalog] 4 - 16 unit SQ TIDWM 03/17/17 [History] Metoprolol XL (24 HR) Succ [Toprol Xl] 100 mg PO DAILY #30 tab.er.24h 03/22/17 [ Rx] Isosorbide MONOnitrate [Isosorbide Mononitrate ER] 120 mg PO DAILY 06/20/17 [ History] Aspirin 81 mg PO DAILY #30 tab.chew 06/21/17 [Rx] Allopurinol [Zyloprim 100 MG] 200 mg PO DAILY 07/24/17 [History] Calcium Acetate [Phos-LO] 1,334 mg PO TIDWM 07/24/17 [History] Amiodarone [Cordarone] 200 mg PO DAILY #30 tablet 09/22/17 [Rx] Albuterol Sulfate [Albuterol Inhaler] 2 puff IH Q6HR PRN 10/26/17 [History] hydrALAZINE [HydrALAZINE] 25 mg PO BID #60 tablet 11/08/17 [Rx] Furosemide [Lasix] 20 mg PO BID 12/19/17 [History] Omeprazole [PriLOSEC] 40 mg PO DAILY 04/13/18 [History] 3 Allergy/AdvReac Type Severity Reaction Status Date / Time bacitracin Allergy Rash Verified 04/12/18 21:57 [From Neosporin ([id number])] Neomycin Allergy Rash Verified 04/12/18 21:57 [From Neosporin ([id number])] polymyxin B Allergy Rash Verified 04/12/18 21:57 [From Neosporin ([id number])] atorvastatin AdvReac Cramping Verified 04/12/18 21:57 of the Muscles plastic Allergy Rash Uncoded 04/12/18 21:57 tape Allergy Rash Uncoded 04/12/18 21:57 All Systems Review: The remainder of the systems were reviewed and are negative - Cardiovascular Cardiovascular: as per HPI Physical Examination Vital Signs, Last 4 Hours Temp Pulse Resp BP Pulse Ox 04/13/18 07:33 98.3 F 91 18 150/86 92 General: Conversant HEENT: Atraumatic, Normocephaly Cardiac: Reg Rate and Rhythm, Normal S1 and S2 Lungs: Normal Breath Sounds Neuro: Alert and responsive Abdomen: Soft Skin: No rashes noted on visualized skin Musculoskeletal: No Chest Wall Tenderness Extremities: Other (mild, non-pitting BLE edema. ) Results 04/13/18 05:31 04/13/18 05:31 Lab Results 04/13/18 04/13/18 05:31 05:31 WBC 7.1 Hgb 9.8 L Hct 31.4 L Plt Count 156 Sodium 144 Potassium 3.7 Chloride 98 Carbon Dioxide 22 L BUN 33 H Creatinine 4.38 H Glucose 118 H Calcium 8.5 L Magnesium 1.8 Active Medications Acetaminophen (Tylenol) 650 mg PO Q6HR PRN PRN Reason: Mild Pain/Fever Stop: 10/13/18 02:56 Albuterol Sulfate (Proventil Neb) 2.5 mg IH [id number] PRN; Protocol PRN Reason: Shortness Of Breath/Wheezing Stop: 10/13/18 02:38 Allopurinol (Zyloprim) 200 mg PO DAILY [facility] Stop: 10/13/18 09:01 Last Admin: 04/13/18 08:15 Dose: 200 mg Aspirin (Aspirin) 81 mg PO DAILY [facility] Stop: 10/13/18 09:01 Last Admin: 04/13/18 08:15 Dose: 81 mg Calcium Acetate (Phos-Lo) 1,334 mg PO TIDWM [facility] Stop: 10/13/18 08:01 Last Admin: 04/13/18 08:15 Dose: 1,334 mg Dextrose/Water (Dextrose 50% (Syg)) 25 ml IVP AD PRN PRN Reason: Hypoglycemia Stop: 10/13/18 02:47 Enoxaparin Sodium (Lovenox) 30 mg SQ 0600 [facility] PRN Reason: Protocol Stop: 10/13/18 06:01 Last Admin: 04/13/18 08:15 Dose: 30 mg Furosemide (Lasix) 20 mg PO BIDDIURETIC [facility] Stop: 10/13/18 02:46 Last Admin: 04/13/18 08:15 Dose: 20 mg Gabapentin (Neurontin) 100 mg PO TID [facility] Stop: 10/13/18 02:46 Last Admin: 04/13/18 08:15 Dose: 100 mg Glucagon (Glucagen) 1 mg IM ONCE PRN PRN Reason: Hypoglycemia Stop: 10/13/18 02:47 Glucose (Gluctose) 15 gm PO ONCE PRN PRN Reason: Hypoglycemia Stop: 10/13/18 02:47 Glucose (Gluctose) 30 gm PO ONCE PRN PRN Reason: Hypoglycemia Stop: 10/13/18 02:47 Hydralazine HCl (Hydralazine) 25 mg PO BID [facility] Stop: 10/13/18 09:01 Last Admin: 04/13/18 08:15 Dose: 25 mg Dextrose (Dextrose 5%) 1,000 mls @ 100 mls/hr IVC .Q10H PRN PRN Reason: HYPOGLYCEMIA Stop: 10/13/18 02:47 Insulin Detemir (Levemir) 10 unit SQ BID [facility] Stop: 10/13/18 09:01 Last Admin: 04/13/18 08:16 Dose: 10 unit Insulin Human Lispro (Humalog) 0 units SQ TIDAC [facility] PRN Reason: Protocol Stop: 10/13/18 07:31 Last Admin: 04/13/18 07:47 Dose: Not Given Insulin Human Lispro (Humalog) 0 units SQ HS [facility] PRN Reason: Protocol Stop: 10/13/18 03:01 Last Admin: 04/13/18 07:32 Dose: Not Given Isosorbide Mononitrate (Imdur) 120 mg PO DAILY [facility] Stop: 10/13/18 09:01 Last Admin: 04/13/18 08:15 Dose: 120 mg Metoprolol Succinate (Toprol Xl) 100 mg PO DAILY [facility] Stop: 10/13/18 09:01 Last Admin: 04/13/18 08:15 Dose: 100 mg Metoprolol Tartrate (Lopressor) 5 mg IVP Q5MIN [facility] Stop: 04/14/18 23:16 Last Admin: 04/13/18 00:03 Dose: 5 mg Metoprolol Tartrate (Lopressor) 5 mg IVP Q6HR PRN PRN Reason: Tachyarrhythmias Stop: 10/13/18 02:56 Naloxone HCl (Narcan) 0.4 mg IVP Q2MIN PRN PRN Reason: SEE COMMENTS Stop: 10/13/18 02:56 Omeprazole (Prilosec) 40 mg PO 0630 [facility] Stop: 10/13/18 06:31 Last Admin: 04/13/18 08:15 Dose: 40 mg Ondansetron HCl (Zofran) 4 mg IVP Q6HR PRN; Protocol PRN Reason: Nausea And Vomiting Stop: 10/13/18 01:53 Last Admin: 04/13/18 02:13 Dose: 4 mg - Imaging and Cardiology Echo: report reviewed Cardiac cath: report reviewed Other Results: 12 hour tele: avg HR=89. PAF noted. - EKG Interpretation EKG results cardiology: personally reviewed Consult Discharge Plan - Plan Referrals: Eleazar Calhoun MD [Primary Care Provider] - <Radha Dougherty - Last Filed: 04/13/18 09:59> Date of Encounter: 04/13/18 - Attending Attestation I examined this patient and my medical decision-making was reviewed with the HOME CARE SPECIALIST. I agree with the documented findings, disposition and treatment plan as described. Known history of PAF - has demonstrated paroxysms while inpatient. She is feeling much better now and appears rate controlled on toprol. She ran out of amiodarone in the past and this was not restarted by her primary electroencephalographic technician. She does not wish to restart coumadin despite knowledge of risk for stroke. She prefers aspirin. Reasonable at this time to pursue a rate control strategy. Continue aspirin. Recommend outpatient cardiology follow up. Will sign off. Please call with questions. Assessment and Plan Discussion w patient/family: The assessment and plan as outlined above was discussed with the patient and/or family members who expressed understanding and agreement. All questions were answered. Thank you for involving us in the care of your patient. Please call with any questions. History of Present Illness History of present illness: Ms. Madden is a 68 year old female All Systems Review: The remainder of the systems were reviewed and are negative Physical Examination Vital Signs, Last 4 Hours Temp Pulse Resp BP Pulse Ox 04/13/18 07:33 98.3 F 91 18 150/86 92 Results 04/13/18 05:31 04/13/18 05:31 Lab Results 04/13/18 04/13/18 05:31 05:31 WBC 7.1 Hgb 9.8 L Hct 31.4 L Plt Count 156 Sodium 144 Potassium 3.7 Chloride 98 Carbon Dioxide 22 L BUN 33 H Creatinine 4.38 H Glucose 118 H Calcium 8.5 L Magnesium 1.8
[2018-04-13] MEDS ORDERED: hydrALAZINE 25 MG TABLET PO PRN (11:24)
[2018-04-13 11:27] VITALS: BP 121/64
--- NOTE | 2018-04-13 11:30 | Discharge Summary ---
- NOTES TO OUTPATIENT PROVIDER Notes to Outpatient Provider: Follow with topographical field assistant in 1 week. Follow-up with PCP for 5-7 days. Keep her routine hemodialysis appointment Orders not resulted at time of discharge: Pending orders 04/13/18 08:56 EKG [ECG 12 lead ECG] [ECG] Stat Date of Encounter: 04/13/18 Time of Encounter: 11:28 - Discharge Diagnosis (1) Paroxysmal A-fib Priority: Primary Status: Acute Assessment and Plan: Now normal sinus rhythm. Improved with 2 doses of metoprolol 5 mg IV in ED. ECHO on 11/02/17 showed LVEF 50-55%. Consulted topographical field assistant who did talk to patient in length and advise to his start Coumadin but patient refused and okay to continue aspirin. I also discussed the discharge plan with topographical field assistant in length and decided to discharge patient on same home medication with follow-up cardiology on OPD basis. Continue aspirin as anticoagulation (2) Diabetes Priority: Secondary Status: Chronic Assessment and Plan: Well controlled. Continue home medicine. 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 insulin use: with extermination supervisor use Diabetes mellitus complication status: with kidney complications Diabetes mellitus complication detail: with chronic kidney disease Chronic kidney disease stage: on chronic dialysis Qualified Code(s) : E11.22 - Type 2 diabetes mellitus with diabetic chronic kidney disease; N18.6 - End stage renal disease; Z99.2 - Dependence on renal dialysis; Z99.2 - Dependence on renal dialysis; Z99.2 - Dependence on renal dialysis; N18.6 - End stage renal disease; N18.6 - End stage renal disease; N18.6 - End stage renal disease; Z79.4 - manager terminal (current) use of insulin; Z79.4 - retirement (current ) use of insulin; Z79.4 - manager terminal (current) use of insulin; Z79.4 - retirement (current) use of insulin; Z99.2 - Dependence on renal dialysis (3) Hypertension Priority: Secondary Status: Chronic Assessment and Plan: Continue home medications. Well controlled. Qualifiers: Hypertension type: essential hypertension Qualified Code(s): I10 - Essential (primary) hypertension (4) CAD (coronary artery disease) Priority: Secondary Status: Chronic Assessment and Plan: Stable. Qualifiers: Coronary Disease-Associated Artery/Lesion type: [place] artery [place] vs. transplanted heart: [place] heart Associated angina: with unstable angina Qualified Code(s): I25.110 - Atherosclerotic heart disease of [place] coronary artery with unstable angina pectoris (5) ESRD (end stage renal disease) Priority: Secondary Status: Chronic Assessment and Plan: Continue dialysis per MWF schedule. Discussed discharge plan with fire services plumber who is okay to discharge patient home from [facility] and advice to continue hemodialysis as a scheduled on OPD basis. (6) Anemia Priority: Secondary Status: Chronic Assessment and Plan: Likely secondary to renal disease. Stable no active bleeding. Qualifiers: Anemia type: unspecified type Qualified Code(s): D64.9 - Anemia, unspecified (7) Pressure ulcer of right leg, unstageable Priority: Secondary Status: Chronic Assessment and Plan: Chronic issue. Currently bandaged. No signs or symptoms of infection. Follow with PCP on OPD basis (8) Nausea & vomiting Priority: Primary Status: Acute Assessment and Plan: Stable. Qualifiers: Vomiting type: unspecified Vomiting Intractability: non-intractable Qualified Code(s): R11.2 - Nausea with vomiting, unspecified (9) Chronic diastolic CHF (congestive heart failure) Priority: Secondary Status: Chronic Assessment and Plan: Stable Hospital course: Ms. Madden is a 68 year old female got admitted for A. fib with RVR. Amiodarone and warfarin was just stopped a few weeks ago by cardiology. Forepart Laster was consulted who discussed with patient at length about considering warfarin but patient refused after understanding the risk and benefits but okay to continue aspirin as anticoagulation therapy. Patient is being discharged on home medication. At the time of discharge patient is normal sinus rhythm and clinically stable. Please see diagnosis section for details. Discharge discussed with: patient - Time Spent with Patient Total time spent providing and/or coordinating discharge services: - Discharge Medications Home Medications: Gabapentin [Neurontin] 100 mg PO TID 03/17/17 [History] Insulin Glargine,Hum.rec.anlog [Lantus Solostar] 18 - 20 unit SQ BID 03/17/17 [ History] Insulin LISPRO [Humalog] 4 - 16 unit SQ TIDWM 03/17/17 [History] Isosorbide MONOnitrate [Isosorbide Mononitrate ER] 120 mg PO DAILY 06/20/17 [ History] Aspirin 81 mg PO DAILY #30 tab.chew 06/21/17 [Rx] Allopurinol [Zyloprim 100 MG] 200 mg PO DAILY 07/24/17 [History] Calcium Acetate [Phos-LO] 1,334 mg PO TIDWM 07/24/17 [History] Albuterol Sulfate [Albuterol Inhaler] 2 puff IH Q6HR PRN 10/26/17 [History] Furosemide [Lasix] 20 mg PO BID 12/19/17 [History] Citalopram Hydrobromide [Citalopram HBr] 10 mg PO DAILY 04/13/18 [History] Hydralazine HCl 50 mg PO QID PRN 04/13/18 [History] Metoprolol Succinate [Toprol Xl] 50 mg PO DAILY 04/13/18 [History] Metoprolol XL (24 HR) Succ [Toprol Xl] 100 mg PO DAILY tab.er.24h 04/13/18 [Rx] Omeprazole [PriLOSEC] 20 mg PO DAILY 04/13/18 [History] Omeprazole [PriLOSEC] 40 mg PO 0630 capsule. 04/13/18 [Rx] Allergies/Adverse Reactions: 3 Allergy/AdvReac Type Severity Reaction Status Date / Time bacitracin Allergy Rash Verified 04/12/18 21:57 [From Neosporin ([id number])] Neomycin Allergy Rash Verified 04/12/18 21:57 [From Neosporin ([id number])] polymyxin B Allergy Rash Verified 04/12/18 21:57 [From Neosporin ([id number])] atorvastatin AdvReac Cramping Verified 04/12/18 21:57 of the Muscles plastic Allergy Rash Uncoded 04/12/18 21:57 tape Allergy Rash Uncoded 04/12/18 21:57 Date of admission: 04/13/18 00:03 Primary care physician: Eleazar Calhoun MD Consults: 04/13/18 02:52 Consult to Cardiology [CONS] Routine Comment: Consulting Provider: Cardiology Iliana Reason for Consult: Afib Call Completed: No 04/13/18 02:57 Consult to Nephrology [CONS] Routine Consulting Provider: [facility] [place]/NICKY/CYNTHIA/ZAFAR Reason for Consult: ESRD on Dialysis Call Completed: No 04/13/18 03:50 Consult to Wound Care [CONS] Routine Reason for Consult: RLE Wound. Please evaluate and make treatment recommendations. Thanks. Call Completed: No - Constitutional Vitals: Temp Pulse Resp BP Pulse Ox 98.9 F 93 18 121/64 91 04/13/18 11:26 04/13/18 11:26 04/13/18 11:26 04/13/18 11:26 04/13/18 11:26 General appearance: Present: cooperative, A&O X 3, pleasant, obese, answers questions appropriately Exam: General appearance: No acute distress, A&O X 3 Head exam: Atraumatic Eye exam: EOMI, PERRLA ENT exam: Moist oral mucosa Neck nontender, supple Respiratory exam: Clear to auscultation bilaterally Cardiovascular exam: Regular rate and rhythm, no systolic murmur Abdominal exam: Soft, nontender, nondistended, positive bowel sounds Extremities exam: No calf tenderness, no pedal edema Present: Skin- warm, dry, intact Neurological exam: Alert, awake, oriented 3, CN II-XII intact, no focal deficits. No facial droop. Normal speech. Normal gait. - Patient Status Disposition: Home, Self-Care Condition: Good Overall status at discharge: patient is back to baseline - Discharge Instructions Instructions: Heart Failure (DC), Diabetes Mellitus Type 2 in Adults (DC), Chronic Obstructive Pulmonary Disease (DC) Follow Up With: Eleazar Calhoun MD [Primary Care Provider] - - Diet and Activity Activity: increase activity as tolerated Diet: advance to your usual diet
[2018-04-14] MEDS ORDERED: Metoprolol XL (24 HR) Succ 50 MG TAB.ER.24H PO SCH (09:00)
--- NOTE | 2018-04-17 21:30 | Electrocardiograph Report ---
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
--- NOTE | 2018-04-17 21:32 | Electrocardiograph Report ---
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
== END 2018-04-13 12:52 | disposition home or self-care (01) ==
LOC: EMEROO 21:56 → 2ANU 21:56
PROVIDERS: ADMIT Family Medicine; ATTEND Family Medicine

== ENCOUNTER 2018-04-24 05:36 | Inpatient (IN) ==
--- NOTE | 2018-04-24 05:39 | Emergency Department Note ---
Disposition Clinical Impression: ESRD (end stage renal disease) on dialysis, Elevated troponin A-fib Qualifiers: Atrial fibrillation type: paroxysmal Qualified Code(s): I48.0 - Paroxysmal atrial fibrillation CHF (congestive heart failure) Qualifiers: Heart failure type: diastolic Heart failure chronicity: acute Qualified Code(s) : I50.31 - Acute diastolic (congestive) heart failure Chest pain Qualifiers: Chest pain type: unspecified Qualified Code(s): R07.9 - Chest pain, unspecified Disposition: Admitted As Inpatient Condition: Fair General Adult HPI - General Stated complaint: chest pain SoB Nursing Notes Reviewed: Yes Vital Signs Reviewed: Yes - History of Present Illness HPI Narrative: 60-year-old female presents emergency department with concern for shortness of breath, palpitations, chest pressure radiating to her shoulder blades. Patient has been diagnosed with atrial fibrillation and has had constant issues with requiring admission or last few weeks. States that all of her symptoms have been present over the last few days at time of discharge from the hospital, but gradually gotten worse, which made her decide to come in now. She takes metoprolol for her rate control, and has not taken this morning's dose. Not on any blood thinning medication for atrial fibrillation. Patient reports being end-stage renal disease, with dialysis on Sunday, Sunday, Sunday. - Related Data Home Medications Medication Instructions Recorded Confirmed Gabapentin [Neurontin] 100 mg PO TID 03/17/17 04/24/18 Insulin Glargine,Hum.rec.anlog 18 - 20 unit SQ BID 03/17/17 04/24/18 [Lantus Solostar] Insulin LISPRO [Humalog] 4 - 16 unit SQ TIDWM PRN 03/17/17 04/24/18 Isosorbide MONOnitrate [Isosorbide 120 mg PO DAILY 06/20/17 04/24/18 Mononitrate ER] Allopurinol [Zyloprim 100 MG] 200 mg PO DAILY 07/24/17 04/24/18 Calcium Acetate [Phos-LO] 1,334 mg PO TIDWM 07/24/17 04/24/18 Albuterol Sulfate [Albuterol 2 puff IH Q6HR PRN 10/26/17 04/24/18 Inhaler] Citalopram Hydrobromide 10 mg PO DAILY 04/13/18 04/24/18 [Citalopram HBr] Hydralazine HCl 50 mg PO TID 04/13/18 04/24/18 Previous Rx's Medication Instructions Recorded Aspirin 81 mg PO DAILY #30 tab.chew 06/21/17 Metoprolol XL (24 HR) Succ [Toprol 100 mg PO DAILY tab.er.24h 04/13/18 Xl] Omeprazole [PriLOSEC] 40 mg PO 0630 capsule. 04/13/18 Clopidogrel [Plavix] 75 mg PO DAILY #30 tablet 04/29/18 Furosemide [Lasix] 40 mg PO BID #60 tablet 04/29/18 Sevelamer [Renvela] 1,600 mg PO TIDWM #90 tablet 04/29/18 Allergies Allergy/AdvReac Type Severity Reaction Status Date / Time bacitracin Allergy Rash Verified 04/12/18 21:57 [From Neosporin ([id number])] Neomycin Allergy Rash Verified 04/12/18 21:57 [From Neosporin (sgs-[id number])] polymyxin B Allergy Rash Verified 04/12/18 21:57 [From Neosporin ([id number]-[id number])] atorvastatin AdvReac Cramping Verified 04/12/18 21:57 of the Muscles plastic Allergy Rash Uncoded 04/12/18 21:57 tape Allergy Rash Uncoded 04/12/18 21:57 All systems ED: reviewed and negative except as stated. Review of Systems: As Per HPI Constitutional: Denies: fever Cardiovascular: Reports: chest pain Respiratory: Denies: dyspnea Gastrointestinal: Denies: abdominal pain, nausea, vomiting Genitourinary: Denies: urgency, dysuria, frequency Musculoskeletal: Denies: back pain Past Medical History - Past Medical History Medical history: Reports: atrial fibrillation, CHF, coronary artery disease, DVT , diabetes, dialysis, hypertension, myocardial infarction, renal disease Surgical history: Reports: angioplasty/stent, cholecystectomy, hysterectomy, other Psychiatric history: Reports: no psych history SURVEILLANCE SENSOR OFFICER history: Reports: no SURVEILLANCE SENSOR OFFICER history - Social History Smoking Status: Never smoker Smokeless Tobacco Status: No Alcohol use: Reports: none Drug use: Reports: none Physical Exam - General Limitations: no limitations General appearance: alert - Head Head exam: normocephalic - Eye Eye exam: Present: EOMI - ENT ENT exam: normal oropharynx - Neck Neck exam: Present: trachea midline - Chest Chest inspection: Present: normal inspection, symmetric chest wall rise - Respiratory Respiratory exam: Present: normal lung sounds bilaterally. Absent: respiratory distress, accessory muscle use - Cardiovascular Cardiovascular exam: Present: tachycardia, irregular rhythm, normal heart sounds - Abdominal Exam Abdominal exam: Present: soft, Non-Tender. Absent: distention, guarding, rebound, rigidity - Extremities Exam Extremities exam: Present: normal capillary refill. Absent: pedal edema - Back Exam Back exam: Present: full ROM - Neurological Exam Neurological exam: Present: alert, oriented X3 - Psychiatric Psychiatric exam: Present: normal affect, normal mood - Skin Skin exam: Present: warm, dry, intact, normal color Course Vital Signs Temperature 98 F 04/24/18 05:44 Pulse Rate 113 04/24/18 05:44 Respiratory Rate 20 04/24/18 05:44 Blood Pressure 109/77 04/24/18 05:44 O2 Sat by Pulse Oximetry 97 04/24/18 05:44 Temperature 97.6 F 04/29/18 12:15 Pulse Rate 78 04/29/18 14:53 Respiratory Rate 16 04/29/18 13:25 Blood Pressure 135/66 04/29/18 14:53 O2 Sat by Pulse Oximetry 98 04/29/18 07:30 Oxygen Delivery Oxygen Delivery Nasal Cannula Medical Decision Making - [facility] Narrative Medical decision making narrative: 60-year-old female presented to emergency department with concern for shortness of breath, chest pain, was known A. fib with RVR. Patient currently in in and out of her place with RVR with a rate from the 90s to the 110s. This was addressed with a liter of fluid as patient has had no known history of congestive heart failure with a normal last ejection fraction when looking at previous echocardiogram, no pedal edema, and lungs being clear to auscultation bilaterally. Patient's EKG did not reveal any ischemic ST changes. Troponin was 0.36. This is significantly higher than it has been in the past when it was 0.03 2 days ago. Patient was given aspirin as well as sublingual nitroglycerin for the chest pressure she was reporting at this time. Pulmonary edema was on chest x- ray. BNP of 1555. This is much higher than previous. Creatinine is 7.17. Patient is in significant renal disease receiving dialysis on Sunday, Sunday, Sunday. Potassium is 4.6. Patient does report still making urine. I spoke with patient regarding need for admission. Discussed the elevated troponin with her and put on the chest x-ray. Patient was admitted to the hospitalist and he requested I speak with cardiology. He recommended to not start Lasix at this time. I spoke with cardiology recommended administration of heparin via ACS protocol. This is been initiated Patient admitted. Currently chest pain-free at this time and in A. fib with RVR at a rate in the 90s. Not in any respiratory distress. Chest X-Ray 04/24/18 05:39 IMPRESSION: Pulmonary edema. D/ / Fabricio Marie MD / Fabricio Marie MD Interpreting Provider: Fabricio Marie MD - Lab Data Result diagrams: 04/29/18 03:32 04/29/18 03:32 Lab Results 04/24/18 04/24/18 04/24/18 Range/Units 05:50 05:50 05:50 WBC 6.4 (4.3-11.1) K/mcL RBC 3.19 L (3.82-4.97) M/mcL Hgb 9.8 L (11.5-15.4) g/dL Hct 31.3 L (35.3-44.9) % MCV 98.1 (83.0-100.0) fL MCH 30.7 (28.0-33.3) pg MCHC 31.3 L (31.6-35.5) g/dL RDW 15.4 H (11.5-14.5) % Plt Count 168 (140-400) K/mcL MPV 10.5 (9.4-12.4) fL Immature Gran % 0.6 (0-4) % Seg Neutrophils % 68.3 % Lymphocytes % 20.8 % Monocytes % 6.7 % Eosinophils % 3.0 % Basophils % 0.6 % Neutrophils # 4.4 (1.6-8.9) K/mcL Lymphocytes # 1.3 (0.6-4.6) K/mcL Monocytes # 0.4 (0.0-1.3) K/mcL Eosinophils # 0.2 (0.0-0.6) K/mcL Basophils # 0.0 (0.0-0.2) K/mcL PT 13.6 H (9.4-12.1) Seconds INR 1.2 APTT 53.9 H (26.0-36.0) Seconds Heparin Anti-Xa, Unfract (0.30-0.70) IU/mL Sodium (136-145) mEq/L Potassium (3.5-5.1) mEq/L Chloride (98-107) mEq/L Carbon Dioxide (23-29) mEq/L BUN (8-23) mg/dL Creatinine (0.60-1.20) mg/dL Est GFR ( Amer) (> 60) Est GFR (Non-Af Amer) (> 60) BUN/Creatinine Ratio (6-26) Glucose (70-105) mg/dL Calculated Osmolality (280-300) Calcium (8.6-10.3) mg/dL Magnesium (1.6-2.6) mg/dL Troponin I (< 0.04) ng/mL B-Natriuretic Peptide 1555 H (Less than 100) pg/mL Triglycerides (< 150) mg/dL Cholesterol (< 200) mg/dL LDL Cholesterol, Calc (0-99) mg/dL VLDL Cholesterol, Calc (< 31) mg/dL HDL Cholesterol (40-59) mg/dL Cholesterol/HDL Ratio (0-4.9) TSH (0.340-5.600) mcIU/mL Hep Bs Antigen (Nonreactive) Hep Bs Antibody mIU/mL 04/24/18 04/24/18 04/24/18 Range/Units 05:50 05:50 08:57 WBC (4.3-11.1) K/mcL RBC (3.82-4.97) M/mcL Hgb (11.5-15.4) g/dL Hct (35.3-44.9) % MCV (83.0-100.0) fL MCH (28.0-33.3) pg MCHC (31.6-35.5) g/dL RDW (11.5-14.5) % Plt Count (140-400) K/mcL MPV (9.4-12.4) fL Immature Gran % (0-4) % Seg Neutrophils % % Lymphocytes % % Monocytes % % Eosinophils % % Basophils % % Neutrophils # (1.6-8.9) K/mcL Lymphocytes # (0.6-4.6) K/mcL Monocytes # (0.0-1.3) K/mcL Eosinophils # (0.0-0.6) K/mcL Basophils # (0.0-0.2) K/mcL PT (9.4-12.1) Seconds INR APTT (26.0-36.0) Seconds Heparin Anti-Xa, Unfract 0.04 L (0.30-0.70) IU/mL Sodium 142 (136-145) mEq/L Potassium 4.6 (3.5-5.1) mEq/L Chloride 98 (98-107) mEq/L Carbon Dioxide 22 L (23-29) mEq/L BUN 70 H (8-23) mg/dL Creatinine 7.17 H (0.60-1.20) mg/dL Est GFR ( Amer) 7 L (> 60) Est GFR (Non-Af Amer) 6 L (> 60) BUN/Creatinine Ratio 10 (6-26) Glucose 175 H (70-105) mg/dL Calculated Osmolality 319 H (280-300) Calcium 8.3 L (8.6-10.3) mg/dL Magnesium 2.1 (1.6-2.6) mg/dL Troponin I 0.36 H* (< 0.04) ng/mL B-Natriuretic Peptide (Less than 100) pg/mL Triglycerides (< 150) mg/dL Cholesterol (< 200) mg/dL LDL Cholesterol, Calc (0-99) mg/dL VLDL Cholesterol, Calc (< 31) mg/dL HDL Cholesterol (40-59) mg/dL Cholesterol/HDL Ratio (0-4.9) TSH (0.340-5.600) mcIU/mL Hep Bs Antigen Nonreactive (Nonreactive) Hep Bs Antibody 0.58 mIU/mL 04/24/18 04/24/18 Range/Units 10:18 10:18 WBC (4.3-11.1) K/mcL RBC (3.82-4.97) M/mcL Hgb (11.5-15.4) g/dL Hct (35.3-44.9) % MCV (83.0-100.0) fL MCH (28.0-33.3) pg MCHC (31.6-35.5) g/dL RDW (11.5-14.5) % Plt Count (140-400) K/mcL MPV (9.4-12.4) fL Immature Gran % (0-4) % Seg Neutrophils % % Lymphocytes % % Monocytes % % Eosinophils % % Basophils % % Neutrophils # (1.6-8.9) K/mcL Lymphocytes # (0.6-4.6) K/mcL Monocytes # (0.0-1.3) K/mcL Eosinophils # (0.0-0.6) K/mcL Basophils # (0.0-0.2) K/mcL PT (9.4-12.1) Seconds INR APTT (26.0-36.0) Seconds Heparin Anti-Xa, Unfract (0.30-0.70) IU/mL Sodium (136-145) mEq/L Potassium (3.5-5.1) mEq/L Chloride (98-107) mEq/L Carbon Dioxide (23-29) mEq/L BUN (8-23) mg/dL Creatinine (0.60-1.20) mg/dL Est GFR ( Amer) (> 60) Est GFR (Non-Af Amer) (> 60) BUN/Creatinine Ratio (6-26) Glucose (70-105) mg/dL Calculated Osmolality (280-300) Calcium (8.6-10.3) mg/dL Magnesium (1.6-2.6) mg/dL Troponin I 0.39 H* (< 0.04) ng/mL B-Natriuretic Peptide (Less than 100) pg/mL Triglycerides 123 (< 150) mg/dL Cholesterol 162 (< 200) mg/dL LDL Cholesterol, Calc 104 H (0-99) mg/dL VLDL Cholesterol, Calc 25 (< 31) mg/dL HDL Cholesterol 33 L (40-59) mg/dL Cholesterol/HDL Ratio 4.9 (0-4.9) TSH 1.731 (0.340-5.600) mcIU/mL Hep Bs Antigen (Nonreactive) Hep Bs Antibody mIU/mL - EKG Data EKG #1 EKG attestation: Yes I reviewed and interpreted this EKG. EKG results narrative: 5:40 Ventricular rate 112 bpm, QRS duration 172 ms, QT 387 segs, QTC 453 ms, left axis deviation. Atrial fibrillation with RVR. No ischemic ST changes on this EKG when in comparison to a previous one obtained on April 13, 2018. Critical Care Time Critical Care Time: Yes Total Critical Care Time: 35 Attestation: A fib w/ rvr requiring rate control meds; non STEMI; Attestation Statement - Attestation Attestation: Dr Aragon note: Pt seen in conjunction w/ resident Dr Robles; please see his charting for complete documentation; I spent face to face time w/ pt and agree w/ pt's treatment and disposition; labs and imaging results reviewed; Heart rate improved on admission; h/o non Stemi in the past;
[2018-04-24] MEDS ORDERED: Aspirin 81 MG TAB.CHEW PO ONE (05:50)
[2018-04-24] MEDS ORDERED: 0.9 % Sodium Chloride 250 ML IVC ONE (05:54)
[2018-04-24] MEDS ORDERED: 0.9 % Sodium Chloride 1,000 ML IVC ONE (05:57)
[2018-04-24 06:07] LABS: Basophils % 0.6 %; Eosinophils # 0.2 K/mcL (0.0-0.6); Hematocrit 31.3 % (35.3-44.9); Hemoglobin 9.8 g/dL (11.5-15.4); Immature Granulocytes % 0.6 % (0-4); Lymphocytes # 1.3 K/mcL (0.6-4.6); Lymphocytes % 20.8 %; Mean Corpuscular HGB Conc 31.3 g/dL (31.6-35.5); Mean Corpuscular Hemoglobin 30.7 pg (28.0-33.3); Mean Corpuscular Volume 98.1 fL (83.0-100.0); Mean Platelet Volume 10.5 fL (9.4-12.4); Monocytes # 0.4 K/mcL (0.0-1.3); Monocytes % 6.7 %; Neutrophils # 4.4 K/mcL (1.6-8.9); Platelet Count 168 K/mcL (140-400); Red Blood Count 3.19 M/mcL (3.82-4.97); Red Cell Distribution Width 15.4 % (11.5-14.5); Segmented Neutrophils % 68.3 %
[2018-04-24 06:17] LABS: INR 1.2; Prothrombin Time 13.6 Seconds (9.4-12.1)
[2018-04-24 06:20] LABS: Activated Partial Thrombo Time 53.9 Seconds (26.0-36.0)
[2018-04-24 06:35] LABS: Calcium 8.3 mg/dL (8.6-10.3); Potassium 4.6 mEq/L (3.5-5.1)
[2018-04-24] MEDS ORDERED: Nitroglycerin 0.4 MG TAB.SUBL SL PRN (06:36)
[2018-04-24 06:39] LABS: Troponin I 0.36 ng/mL (< 0.04)
[2018-04-24] MEDS ORDERED: *HR* Heparin 5,000 UNIT/ML VIAL IVP PRN (07:18)
[2018-04-24] MEDS ORDERED: *HR* Heparin 5,000 UNIT/ML VIAL IVP ONE (07:18)
[2018-04-24] MEDS ORDERED: Heparin 25,000 UNIT/500 ML D5W 25,000 UNIT/500 ML BAG IVC SCH (07:30)
[2018-04-24 09:35] LABS: Magnesium 2.1 mg/dL (1.6-2.6)
[2018-04-24] MEDS ORDERED: Naloxone 0.4 MG/ML INJ IVP PRN (09:52)
[2018-04-24] MEDS ORDERED: Acetaminophen 325 MG TABLET PO PRN (09:52)
[2018-04-24] MEDS ORDERED: traMADol 50 MG TABLET PO PRN (09:52)
[2018-04-24] MEDS ORDERED: Dextrose Gel 15 GM/37.5 ML TUBE PO PRN ×2 (09:57)
[2018-04-24] MEDS ORDERED: *HR* Dextrose 50 % in Water (Syg) 50 ML SYRINGE IVP PRN (09:57)
[2018-04-24] MEDS ORDERED: D5% in Water 1,000 ML IVC PRN (09:57)
[2018-04-24] MEDS ORDERED: 0.9 % Sodium Chloride 250 ML IVC PRN (10:09)
--- NOTE | 2018-04-24 10:10 | Internal Med History&Physical ---
<Vaibhav Luna - Last Filed: 04/24/18 10:07> Date of Encounter: 04/24/18 Time of Encounter: 10:07 Internal Medicine - H&P: HPI Admitted From: Home Plans for Post Hospital Care: Home History of present illness: Ms. Madden is a 68-year-old female with Hx of ESRD, CAD, CHF, DM, HTN, HLP,and Afib who presented emergency department with concern for shortness of breath, palpitations, chest pressure radiating to her shoulder blades. Patient has been diagnosed with atrial fibrillation and has had constant issues with requiring admission or last few weeks. States that all of her symptoms have been present over the last few days, but gradually gotten worse, which made her decide to come in now. She takes metoprolol for her rate control, and has not taken this morning's dose. Patient currently not on any anticoagulation besides aspirin because history of GI bleeding. At the ED, her vital signs were stable, labs revealed elevated troponin high as an baseline, EKG no ST-T elevation, chest x-ray showed pulmonary edema. Because of extensive cardiac disease history, ACS was suspected, patient will be admitted for further evaluation and management. Past Med Surg Social Fam HX - Past Medical History Medical history: atrial fibrillation, CHF, coronary artery disease, DVT, diabetes, dialysis, hypertension, myocardial infarction, renal disease Additional medical history: hemodialysis Sunday, Sunday, Sunday Psychiatric history: no psych history - Past Surgical History Surgical History: angioplasty/stent, cholecystectomy, hysterectomy, other Additional surgical history: heart stents x4 - Social History Smoking Status: Never smoker Smokeless Tobacco Status: No Alcohol use: none Drug use: none - Family History Father Family Member Ethnicity: Non- Living Status: Hx Family Cardiac Disorders: Yes ([place]) Mother Adopted: No Family Member Ethnicity: Non- Living Status: Hx Family Cardiac Disorders: Yes Hx Family Respiratory Disorders: Yes Hx Family Cancer: Yes Hx Family GI Disorders: No Hx Family Endocrine Disorder: Yes Hx Family Neuromuscular Disorders: No Hx Family Neurologic Disorders: No Hx Family HEENT Disorders: No Hx Family Autoimmune Disorders: No Brother Adopted: No Family Member Ethnicity: Non- Living Status: Still Living Hx Family Cardiac Disorders: Yes Hx Family Respiratory Disorders: No Hx Family Cancer: No Hx Family GI Disorders: No Hx Family Endocrine Disorder: Yes Hx Family Neuromuscular Disorders: No Hx Family Neurologic Disorders: No Hx Family HEENT Disorders: No Hx Family Autoimmune Disorders: No Sister Family Member Ethnicity: Non- Living Status: Hx Family Cardiac Disorders: Yes (HTN) Hx Family Respiratory Disorders: No Hx Family Cancer: Yes (Ovarian) Hx Family GI Disorders: No Hx Family Endocrine Disorder: Yes (DM) Hx Family Neuromuscular Disorders: No Hx Family Neurologic Disorders: No Hx Family HEENT Disorders: No Hx Family Autoimmune Disorders: No Internal Medicine - H&P: Meds Gabapentin [Neurontin] 100 mg PO TID 03/17/17 [History] Insulin Glargine,Hum.rec.anlog [Lantus Solostar] 18 - 20 unit SQ BID 03/17/17 [ History] Insulin LISPRO [Humalog] 4 - 16 unit SQ TIDWM PRN 03/17/17 [History] Isosorbide MONOnitrate [Isosorbide Mononitrate ER] 120 mg PO DAILY 06/20/17 [ History] Aspirin 81 mg PO DAILY #30 tab.chew 06/21/17 [Rx] Allopurinol [Zyloprim 100 MG] 200 mg PO DAILY 07/24/17 [History] Calcium Acetate [Phos-LO] 1,334 mg PO TIDWM 07/24/17 [History] Albuterol Sulfate [Albuterol Inhaler] 2 puff IH Q6HR PRN 10/26/17 [History] Furosemide [Lasix] 20 mg PO BID 12/19/17 [History] Citalopram Hydrobromide [Citalopram HBr] 10 mg PO DAILY 04/13/18 [History] Hydralazine HCl 50 mg PO TID 04/13/18 [History] Metoprolol XL (24 HR) Succ [Toprol Xl] 100 mg PO DAILY tab.er.24h 04/13/18 [Rx] Omeprazole [PriLOSEC] 40 mg PO 0630 capsule. 04/13/18 [Rx] 3 Allergy/AdvReac Type Severity Reaction Status Date / Time bacitracin Allergy Rash Verified 04/12/18 21:57 [From Neosporin ([id number])] Neomycin Allergy Rash Verified 04/12/18 21:57 [From Neosporin ([id number])] polymyxin B Allergy Rash Verified 04/12/18 21:57 [From Neosporin ([id number])] atorvastatin AdvReac Cramping Verified 04/12/18 21:57 of the Muscles plastic Allergy Rash Uncoded 04/12/18 21:57 tape Allergy Rash Uncoded 04/12/18 21:57 All Systems PM: A 10-system review of systems was performed and is negative for pertinent findings except as documented above in the HPI. Review of systems: REVIEW OF SYSTEMS: CONSTITUTIONAL: No weight loss, fever, chills, weakness or fatigue. HEENT: Eyes: No visual loss, blurred vision, double vision or yellow sclerae. Ears, Nose, Throat: No hearing loss, sneezing, congestion, runny nose or sore throat. SKIN: No rash or itching. CARDIOVASCULAR: See history of present illness. RESPIRATORY: No shortness of breath, cough or sputum. GASTROINTESTINAL: No anorexia, nausea, vomiting or diarrhea. No abdominal pain or blood. GENITOURINARY: No dysuria, urgency, or frequency. NEUROLOGICAL: No headache, dizziness, syncope, paralysis, ataxia, numbness or tingling in the extremities. No change in bowel or bladder control. MUSCULOSKELETAL: No muscle, back pain, joint pain or stiffness. HEMATOLOGIC: No anemia, bleeding or bruising. LYMPHATICS: No enlarged nodes. No history of splenectomy. PSYCHIATRIC: No history of depression or anxiety. ENDOCRINOLOGIC: No reports of sweating, cold or heat intolerance. No polyuria or polydipsia. - Constitutional Vitals: Temp Pulse Resp BP Pulse Ox 98 F 106 18 111/88 99 04/24/18 05:44 04/24/18 08:28 04/24/18 08:28 04/24/18 08:28 04/24/18 08:28 General appearance: Present: A&O X 3 Exam: PHYSICAL EXAMINATION: GENERAL APPEARANCE: The patient is alert, oriented and in no acute distress. HEENT: Head is normocephalic. The sinuses are nontender. Pupils are equal and reactive. The nares are patent. Oropharynx clear without lesions. NECK: Supple without lymphadenopathy. HEART: Regular rate and rhythm. LUNGS: Diffuse crackles bilaterally. ABDOMEN: Soft, nontender, distended with good bowel sounds heard. Inguinal area is normal. EXTREMITIES: 2+ pitting edema on both lower extremities. NEUROLOGICAL: Gross nonfocal. SKIN: Warm and dry without any rash. Internal Med - H&P Results - Labs CBC & Chem 7: 04/24/18 05:50 04/24/18 05:50 - Assessment and plan (1) Chest pain Current Visit: Yes Status: Acute Assessment and plan: 68 year old female with past medical history of CAD stent, ESRD with dialysis, CHF, diabetes, hypertension, and atrial fibrillation presented with chest pressure/chest pain. Labs revealed higher than baseline troponin, EKG no acute ST-T change comparing prior EKG. - Patient had a remote history of CAD with stent placement, she is currently on aspirin, her recent cardiac catheter in 10/2017 showed minimal minimum vascular disease, patent left main, LAD, RCA, 40% stenosis at mid circumflex. She was advised to continue medical management. She had a recent echocardiogram in 2017 showed a preserved ejection fraction, moderately impaired LV diastolic function. - Chest x-ray revealed pulmonary edema. Troponin 0.36 today, higher than baseline. - Given the near normal recent LHC, volume overload, worsening renal function, etiology likely leaning more toward type II [place] rather than ACS/type I [place]. However, ACS cannot completely ruled out at this time. Echocardiogram was ordered by cardiology. We will continue cycling troponin, EKG as needed, telemetry monitoring. - Continue heparin gtt, patient received 1 dose of aspirin at the ED, continue daily aspirin. - Cardiology following. Qualifiers: Chest pain type: unspecified Qualified Code(s): R07.9 - Chest pain, unspecified (2) Elevated troponin Current Visit: No Status: Acute Assessment and plan: - Same as above. (3) Atrial fibrillation Current Visit: Yes Status: Chronic Assessment and plan: Rate controlled with metoprolol, patient refuses anticoagulation due to history of GI bleeding. Qualifiers: Atrial fibrillation type: paroxysmal Qualified Code(s): I48.0 - Paroxysmal atrial fibrillation (4) ESRD (end stage renal disease) on dialysis Current Visit: Yes Status: Chronic Assessment and plan: Renal consult, her hemodialysis schedule is Sunday/Sunday/Sunday. (5) CAD (coronary artery disease) Current Visit: No Status: Chronic Assessment and plan: Same as above. Qualifiers: Coronary Disease-Associated Artery/Lesion type: [place] artery [place] vs. transplanted heart: [place] heart Associated angina: with unstable angina Qualified Code(s): I25.110 - Atherosclerotic heart disease of [place] coronary artery with unstable angina pectoris (6) Diabetes Current Visit: No Status: Chronic Assessment and plan: Continue home basal insulin dose, started patient on insulin sliding scale. Qualifiers: Diabetes mellitus type: type 2 Diabetes mellitus terminal worker insulin use: with senior care use Diabetes mellitus complication status: with kidney complications Diabetes mellitus complication detail: with chronic kidney disease Chronic kidney disease stage: on chronic dialysis Qualified Code(s) : E11.22 - Type 2 diabetes mellitus with diabetic chronic kidney disease; N18.6 - End stage renal disease; Z99.2 - Dependence on renal dialysis; Z99.2 - Dependence on renal dialysis; Z99.2 - Dependence on renal dialysis; N18.6 - End stage renal disease; N18.6 - End stage renal disease; N18.6 - End stage renal disease; Z79.4 - terminal system operator (current) use of insulin; Z79.4 - [facility] (current ) use of insulin; Z79.4 - terminal system operator (current) use of insulin; Z79.4 - terminal system operator (current) use of insulin; Z99.2 - Dependence on renal dialysis (7) Hypertension Current Visit: No Status: Chronic Assessment and plan: BP controlled, continue monitoring, continue home medication. Qualifiers: Hypertension type: essential hypertension Qualified Code(s): I10 - Essential (primary) hypertension (8) DVT prophylaxis Current Visit: No Status: Acute Assessment and plan: Continue heparin gtt. (9) CHF (congestive heart failure) Current Visit: Yes Status: Chronic Assessment and plan: Patient was volume overloaded, continue IV Lasix, renal consul, possible HD today. Qualifiers: Heart failure type: unspecified Heart failure chronicity: acute Qualified Code(s): I50.9 - Heart failure, unspecified - Time Spent With Patient Total time spent is greater than 50% in coordination of care (as documented) at patient's floor/unit and/or counseling patient: Greater than 35 minutes <Cipriano Childers - Last Filed: 04/24/18 14:36> Date of Encounter: 04/24/18 Internal Medicine - H&P: HPI History of present illness: Ms. Madden is a 68 year old female All Systems PM: A 10-system review of systems was performed and is negative for pertinent findings except as documented above in the HPI. - Constitutional Vitals: Temp Pulse Resp BP Pulse Ox 97.6 F 106 18 126/86 99 04/24/18 11:30 04/24/18 08:28 04/24/18 11:30 04/24/18 13:45 04/24/18 08:28 Internal Med - H&P Results - Labs CBC & Chem 7: 04/24/18 05:50 04/24/18 05:50 - Attending Attestation I have personally seen and examined the patient at the bedside and participated in the formulation of leigh components of the assessment and plan. Briefly this is a 68-year-old female with significant past medical history of coronary artery disease, volume overload, CHF which is systolic, atrial fibrillation and history of GI bleed who is also a dialysis patient presented with very fibrillation RVR as well as mild troponin elevation. She is a dialysis patient who was Sunday On examination the patient has a regular and tachycardic rhythm. Agree with management and plan as per nurse practitioner. The patient has been seen by cardiology and nephrology. Appropriate management is in place. Amiodarone has been started in addition to metoprolol. She continues to be on aspirin therapy but is refusing anticoagulation due to history of GI bleed. Troponin elevation is mild and echo has been ordered. Further decision to do a left heart catheter will be based upon echo evaluation and cardiology follow-up Appreciate nephrology recommendations. We will continue dialysis Sunday. - Assessment and plan (1) Diabetes Current Visit: No Status: Chronic Qualifiers: Diabetes mellitus type: type 2 Diabetes mellitus senior care insulin use: with senior care use Diabetes mellitus complication status: with kidney complications Diabetes mellitus complication detail: with chronic kidney disease Chronic kidney disease stage: on chronic dialysis Qualified Code(s) : E11.22 - Type 2 diabetes mellitus with diabetic chronic kidney disease; N18.6 - End stage renal disease; Z99.2 - Dependence on renal dialysis; Z99.2 - Dependence on renal dialysis; Z99.2 - Dependence on renal dialysis; N18.6 - End stage renal disease; N18.6 - End stage renal disease; N18.6 - End stage renal disease; Z79.4 - terminal system operator (current) use of insulin; Z79.4 - terminal system operator (current ) use of insulin; Z79.4 - [facility] (current) use of insulin; Z79.4 - terminal system operator (current) use of insulin; Z99.2 - Dependence on renal dialysis (2) ESRD (end stage renal disease) on dialysis Current Visit: Yes Status: Chronic (3) Hypertension Current Visit: No Status: Chronic Qualifiers: Hypertension type: essential hypertension Qualified Code(s): I10 - Essential (primary) hypertension (4) Chest pain Current Visit: Yes Status: Acute Qualifiers: Chest pain type: unspecified Qualified Code(s): R07.9 - Chest pain, unspecified (5) CAD (coronary artery disease) Current Visit: No Status: Chronic Qualifiers: Coronary Disease-Associated Artery/Lesion type: [place] artery [place] vs. transplanted heart: [place] heart Associated angina: with unstable angina Qualified Code(s): I25.110 - Atherosclerotic heart disease of [place] coronary artery with unstable angina pectoris (6) Atrial fibrillation Current Visit: Yes Status: Chronic Qualifiers: Atrial fibrillation type: paroxysmal Qualified Code(s): I48.0 - Paroxysmal atrial fibrillation (7) DVT prophylaxis Current Visit: No Status: Acute (8) Elevated troponin Current Visit: No Status: Acute (9) CHF (congestive heart failure) Current Visit: Yes Status: Chronic Qualifiers: Heart failure type: unspecified Heart failure chronicity: acute Qualified Code(s): I50.9 - Heart failure, unspecified - Time Spent With Patient Total time spent is greater than 50% in coordination of care (as documented) at patient's floor/unit and/or counseling patient:
--- NOTE | 2018-04-24 10:23 | Cardiology Consult Note ---
<Ivon Tobar - Last Filed: 04/24/18 12:58> Date of Encounter: 04/24/18 Time of Encounter: 10:22 Assessment and Plan (1) Atrial fibrillation Current Visit: Yes Status: Chronic Patient with history of atrial fibrillation in afib wit RVR -Patient with known history of atrial fibrillation, had been on Coumadin in the past but was d/c due to GI bleed and declined further coumadin medication management. Has been on aspirin. - Most recent echocardiogram 10/2017 showed EF of 50-55% - Left Heart cath performed 10/2017 showed mild one vessel disease, with patent stents - trop 0.36, K WNL. - HAS Bled score of 5, significant for htn, renal disease, prior bleed, age, aspirin use - [id number] score of 6, significant for htn, dm, age, sex, vascular dz, CHF Plan - ordered echocardiogram - TSH, Mg pending - Will start amiodarone 100 mg PO daily, continue as outpatient, have discussed with Dr. Ez Dimas, who agrees with outpatient follow up and starting medication - continue metoprolol XL 100 mg PO as long as on anticoagulation, HR goal of 90- 100 bpm at rest - continue aspirin therapy - EP follow up established for outpatient, regarding continued atrial fibrillation management. Qualifiers: Atrial fibrillation type: paroxysmal Qualified Code(s): I48.0 - Paroxysmal atrial fibrillation (2) Volume overload Current Visit: No Status: Acute Patient with known history of CHF - Most recent echocardiogram showed EF of 50-55% in 10/2017, known history of ESRD on dialysis - elevated BNP at 1550 on admission - CXR showed pulmonary edema and diffuse rales on examination - CBC, BMP within normal limits - patient taking lasix 20 BID PO at home, compliant with medications Plan: - echocardiogram pending - start Lasix 40 mg IV - consider sleep study outpatient - strict I/Os Qualifiers: Qualified Code(s): E87.70 - Fluid overload, unspecified (3) Troponin level elevated Current Visit: No Status: Acute Patient with known history of CAD S/P stents, elevated troponin in ER - Most likely demand ischemia due to atrial fibrillation with RVR, acute CHF exacerbation - most recent echocardiogram showed EF 50-55%, although limited, showed normal wall motion - C 10/2017 showed patent stents with mild one vessel disease - troponin at 0.36, cbc and bmp within normal limits - patient taking aspirin at home, intolerant to statins, on metoprolol for afib rate control Plan: -echocardiogram pending -continue to trend troponins - continue heparin -will consider C, depending upon echo results, will have further conversation with patient on risks/ benefits, given history of bleed would have to consider medication management. Discussion w patient/family: The assessment and plan as outlined above was discussed with the patient and/or family members who expressed understanding and agreement. All questions were answered. Thank you for involving us in the care of your patient. Please call with any questions. History of Present Illness Consult date: 04/24/18 Requesting physician: Autumn Monsivais Consult reason: elevated troponin, chest pain, atrial fibrillation with RVR Chief complaint: chest pain History of present illness: Ms. Madden is a 68 year old female presenting for cardiology consult for elevated troponin, chest pain and atrial fibrillation with RVR. Patient has past medical history of ESRD on dialysis, CHF, CAD S/P stents x4, HTN, HLD, DM, afib. Patient states that she has been having ongoing shortness of breath, exertional and nonexertional, that has been progressively getting worse over the past week. She states that she has been on 2L NC oxygen at home, which was new since her last discharge from the hospital 04/13/18. Over the past two days she has had gradual onset chest pressure that radiates into her shoulders bilaterally, she rates this as a 6/10 at times, is increased with exertion, and has been constant with waxing and waning severity. She has also noticed increased lower extremity swelling and change in weight this past week. Notes dry weight to be around 93 Kg, recently has noticed at dialysis, weight to be 96kg. She has also had a dry cough over the past week. She states she is unable to walk 5 feet without becoming short of breath or having chest pressure. She denies any recent nausea, vomiting, abdominal pain, fever or chills. She states that she was diagnosed with afib about 6 months ago, had been on coumadin however, due to recent GI bleed she has stopped taking this and does not want to be on anything other than aspirin. She states that at times she has fluttering in her chest, which can get worse, she has noticed increased symptoms this past week. Patient states that she did not take her medications this morning, including her toprol XL or lasix. She does take aspirin 81 mg at home. While in the ER, patient was found to be in atrial fibrillation with RVR, was given one liter of fluids. Her troponin was elevated at 0.36, which on admission in the past has been similarilarly elevated, BNP elevated at 1550, significantly elevated from past, BMP and CBC otherwise unremarkable. Most recent TSH was 2.469. Patient was started on heparin per [facility] protocol. Past imaging includes echocardiogram 10/2017 was limited but found EF of 50-55%, LHC 10/2017 showed mild one vessel disease with patent stents. Currently, patient continues to have mild chest pressure rated 3/10, with mild shortness of breath. She is currently on 2L NC in the room. Overall, she notes symptoms are improved since her initial presentation in the ED. Past Med Surg Social Fam HX - Past Medical History Medical history: atrial fibrillation, CHF, coronary artery disease, DVT, diabetes, dialysis, hypertension, myocardial infarction, renal disease Additional medical history: hemodialysis Sunday, Sunday, Sunday Psychiatric history: no psych history - Past Surgical History Surgical History: angioplasty/stent, cholecystectomy, hysterectomy, other Additional surgical history: heart stents x4 - Social History Smoking Status: Never smoker Smokeless Tobacco Status: No Alcohol use: none Drug use: none - Family History Father Family Member Ethnicity: Non- Living Status: Hx Family Cardiac Disorders: Yes ([place]) Mother Adopted: No Family Member Ethnicity: Non- Living Status: Hx Family Cardiac Disorders: Yes Hx Family Respiratory Disorders: Yes Hx Family Cancer: Yes Hx Family GI Disorders: No Hx Family Endocrine Disorder: Yes Hx Family Neuromuscular Disorders: No Hx Family Neurologic Disorders: No Hx Family HEENT Disorders: No Hx Family Autoimmune Disorders: No Brother Adopted: No Family Member Ethnicity: Non- Living Status: Still Living Hx Family Cardiac Disorders: Yes Hx Family Respiratory Disorders: No Hx Family Cancer: No Hx Family GI Disorders: No Hx Family Endocrine Disorder: Yes Hx Family Neuromuscular Disorders: No Hx Family Neurologic Disorders: No Hx Family HEENT Disorders: No Hx Family Autoimmune Disorders: No Sister Family Member Ethnicity: Non- Living Status: Hx Family Cardiac Disorders: Yes (HTN) Hx Family Respiratory Disorders: No Hx Family Cancer: Yes (Ovarian) Hx Family GI Disorders: No Hx Family Endocrine Disorder: Yes (DM) Hx Family Neuromuscular Disorders: No Hx Family Neurologic Disorders: No Hx Family HEENT Disorders: No Hx Family Autoimmune Disorders: No Medications and Allergies Gabapentin [Neurontin] 100 mg PO TID 03/17/17 [History] Insulin Glargine,Hum.rec.anlog [Lantus Solostar] 18 - 20 unit SQ BID 03/17/17 [ History] Insulin LISPRO [Humalog] 4 - 16 unit SQ TIDWM PRN 03/17/17 [History] Isosorbide MONOnitrate [Isosorbide Mononitrate ER] 120 mg PO DAILY 06/20/17 [ History] Aspirin 81 mg PO DAILY #30 tab.chew 06/21/17 [Rx] Allopurinol [Zyloprim 100 MG] 200 mg PO DAILY 07/24/17 [History] Calcium Acetate [Phos-LO] 1,334 mg PO TIDWM 07/24/17 [History] Albuterol Sulfate [Albuterol Inhaler] 2 puff IH Q6HR PRN 10/26/17 [History] Furosemide [Lasix] 20 mg PO BID 12/19/17 [History] Citalopram Hydrobromide [Citalopram HBr] 10 mg PO DAILY 04/13/18 [History] Hydralazine HCl 50 mg PO TID 04/13/18 [History] Metoprolol XL (24 HR) Succ [Toprol Xl] 100 mg PO DAILY tab.er.24h 04/13/18 [Rx] Omeprazole [PriLOSEC] 40 mg PO 0630 capsule. 04/13/18 [Rx] 3 Allergy/AdvReac Type Severity Reaction Status Date / Time bacitracin Allergy Rash Verified 04/12/18 21:57 [From Neosporin ([id number])] Neomycin Allergy Rash Verified 04/12/18 21:57 [From Neosporin ([id number])] polymyxin B Allergy Rash Verified 04/12/18 21:57 [From Neosporin ([id number])] atorvastatin AdvReac Cramping Verified 04/12/18 21:57 of the Muscles plastic Allergy Rash Uncoded 04/12/18 21:57 tape Allergy Rash Uncoded 04/12/18 21:57 All Systems Review: The remainder of the systems were reviewed and are negative - Constitutional Constitutional: snoring, weight gain, no chills, no fatigue, no fever(s), no headache(s), no night sweats, no stops breathing during sleep, no weakness - Cardiovascular Cardiovascular: chest pain at rest, chest pain with exertion, dyspnea at rest, dyspnea on exertion, irregular heart rhythm, leg edema, orthopnea, palpitations , paroxysmal nocturnal dyspnea, rapid heart rate, no diaphoresis, no radiating jaw, neck or arm pain, no lightheadedness, no slow heart rate, no syncope - Respiratory Respiratory: cough, dyspnea, no wheezing - Gastrointestinal Gastrointestinal: no abdominal pain, no constipation, no diarrhea, no nausea - Integumentary Integumentary: no rash - Neurological Neurological: no dizziness, no focal weakness, no numbness, no syncope, no tingling - Hematological/Lymphatic Hematologic/Lymphatic: easy bleeding (history of GI bleed) Physical Examination Vital Signs, Last 4 Hours Pulse Resp BP Pulse Ox 04/24/18 08:28 106 18 111/88 99 04/24/18 07:31 18 115/65 97 General: Conversant, No Apparent Distress HEENT: Atraumatic, Normocephaly, Mucus Membranes Moist Neck: No JVD, Normal carotid pulses Cardiac: Normal S1 and S2 (irregularly irregular rhythm, rate of 96), No Murmur Lungs: Other (scattered rales throughout, greatest at the lower bases bilaterally) Neuro: Alert and responsive, No focal deficits noted Abdomen: Soft, Non-Tender Skin: No rashes noted on visualized skin Musculoskeletal: No Chest Wall Tenderness Extremities: No Cyanosis, Normal Pulses (1 to 2+ pitting LE edema BL) Results 04/24/18 05:50 04/24/18 05:50 - Imaging and Cardiology Chest Xray: report reviewed, image reviewed Echo: pending Cardiac cath: report reviewed - EKG Interpretation EKG results cardiology: personally reviewed (EKG showing atrial fibrillation with RVR, rate of 113, no acute ischemic changes) Consult Discharge Plan - Plan Referrals: Eleazar Calhoun MD [Primary Care Provider] - <Radha Dougherty - Last Filed: 04/24/18 13:54> Date of Encounter: 04/24/18 - Attending Attestation I examined this patient and my medical decision-making was reviewed with the Resident Physician. I agree with the documented findings, disposition and treatment plan as described except to the extent set forth below. Ms. Madden presents with symptoms of shortness of breath, chest pain and palpitations. Patient recently admitted 04/13/18 for shortness of breath. Known history of CAD having undergone PCI remotely and [facility] in October 2017 demonstrating patent stents and 40% mLCx At the bedside the patient appears comfortable in NAD, AAOx3. VS reviewed - afebrile, oxygenating on 2L NC, low normal BPs (stable), HR 110's Labs reviewed - troponin 0.36 then 0.39, BNP 1555, CKD, CXR demonstrates pulmonary edema ECG on admission shows AFIB, HR 112 bpm with BBB Exam demonstrates no concerning murmur, irregularly irregular rate and rhythm, diminished breath sounds bilaterally, LE edema Impression/Plan: 1. SOB: mildly congested probably due to diastolic dysfunction, possibly elevated heart rates. Agree with IV diuresis - she is not anuric - and nephrology input. Attempt also at better rate control of atrial fibrillation. 2. Atrial fibrillation: Patient continues to decline anticoagulation, limiting her options in terms of rhythm control. Her blood pressures are low normal making uptitrating AVN blockers challenging. We will continue her on metoprolol. Have also decided to start low dose amiodarone for rate control purposes, 100mg daily. Recommend outpatient evaluation with Dr. Ez Fritz. Continue aspirin. 3. Elevated troponin: Chronically elevated troponins make current labs challenging to interpret. I discussed this with the patient. She would be hesitant to proceed with a [facility] (10/2017 - nothing to fix). She agreed to await echo findings for further decision making. She inquired about starting plavix which may be reasonable with careful watch on blood counts give history of GIB ( while on coumadin and plavix). Assessment and Plan Discussion w patient/family: The assessment and plan as outlined above was discussed with the patient and/or family members who expressed understanding and agreement. All questions were answered. Thank you for involving us in the care of your patient. Please call with any questions. History of Present Illness History of present illness: Ms. Madden is a 68 year old female All Systems Review: The remainder of the systems were reviewed and are negative Results 04/24/18 05:50 04/24/18 05:50
[2018-04-24] MEDS: Furosemide 40 MG/4 ML VIAL IVP SCH (10:55)
[2018-04-24] MEDS ORDERED: 0.9 % Sodium Chloride 2,000 ML ONE (10:59)
[2018-04-24 11:02] LABS: Chol/HDL Ratio 4.9 (0-4.9)
--- NOTE | 2018-04-24 11:07 | Nephrology Consult Note ---
Date of Encounter: 04/24/18 Time of Encounter: 10:58 Assessment and Plan (1) ESRD (end stage renal disease) on dialysis Current Visit: Yes Status: Chronic Current regimen is MWF with Dr. Hurst. Sodium Thiosulfate continued for calciphylaxis. Would recommend a wound care consult, Dr. Robert has been managing outpatient. Zofran ordered to be given with dialysis, sodium thiosulfate makes her nauseated and have emesis. Pt states she takes Zantac by mouth as well, will order. Renal dose all medications and avoid nephrotoxins. Renal diet if able to eat. Hemodialysis has been ordered for today. (2) Calciphylaxis Current Visit: Yes Status: Acute Wound is noted on right lower extremity. Bandage is clean dry and intact. Would recommend wound care for management. (3) Elevated troponin Current Visit: Yes Status: Acute Initial troponin was 0.36, trending up to 0.39. Per cardio. History of Present Illness - Reason for Consult Consult date: 04/24/18 end stage renal disease - Chief Complaint cp/sob - History of Present Illness Ms. Madden is a 68 year old female with ESRD. Other PMH: CAD, CHF, DM, HTN, HLP ,and Afib. Current HD regimen is MWF in [place] with Dr. Padron. He no longer rounds here, so [facility] will follow along for HD. Last tx was Sunday04/22/18. She admits to nausea/vomiting with HD and more specifically with the administration of Sodium Thoiosulfate which she is getting for a calciphylaxis wound to [facility]. The wound started in October or November of this year and she has been seeing Dr. Roberson and wound care for the last 3 months. Ms. Madden presented to ED with shortness of breath and chest "pressure" that she has had for the past week, but it has gotten worse in the last 2 days. She states she could not even walk to the bathroom without dyspnea. Denies radiation or whether it is worse with activity. Cardiology has been consulted. She lives at home and denies smoking, etoh, or illicit drug use. Past Med Surg Social Fam HX - Past Medical History Medical history: atrial fibrillation, CHF, coronary artery disease, DVT, diabetes, dialysis, hypertension, myocardial infarction, renal disease Additional medical history: hemodialysis Sunday, Sunday, Sunday Psychiatric history: no psych history - Past Surgical History Surgical History: angioplasty/stent, cholecystectomy, hysterectomy, other Additional surgical history: heart stents x4 - Social History Smoking Status: Never smoker Smokeless Tobacco Status: No Alcohol use: none Drug use: none - Family History Father Family Member Ethnicity: Non- Living Status: Hx Family Cardiac Disorders: Yes (DC) Mother Adopted: No Family Member Ethnicity: Non- Living Status: Hx Family Cardiac Disorders: Yes Hx Family Respiratory Disorders: Yes Hx Family Cancer: Yes Hx Family GI Disorders: No Hx Family Endocrine Disorder: Yes Hx Family Neuromuscular Disorders: No Hx Family Neurologic Disorders: No Hx Family HEENT Disorders: No Hx Family Autoimmune Disorders: No Brother Adopted: No Family Member Ethnicity: Non- Living Status: Still Living Hx Family Cardiac Disorders: Yes Hx Family Respiratory Disorders: No Hx Family Cancer: No Hx Family GI Disorders: No Hx Family Endocrine Disorder: Yes Hx Family Neuromuscular Disorders: No Hx Family Neurologic Disorders: No Hx Family HEENT Disorders: No Hx Family Autoimmune Disorders: No Sister Family Member Ethnicity: Non- Living Status: Hx Family Cardiac Disorders: Yes (HTN) Hx Family Respiratory Disorders: No Hx Family Cancer: Yes (Ovarian) Hx Family GI Disorders: No Hx Family Endocrine Disorder: Yes (DM) Hx Family Neuromuscular Disorders: No Hx Family Neurologic Disorders: No Hx Family HEENT Disorders: No Hx Family Autoimmune Disorders: No Medications and Allergies Gabapentin [Neurontin] 100 mg PO TID 03/17/17 [History] Insulin Glargine,Hum.rec.anlog [Lantus Solostar] 18 - 20 unit SQ BID 03/17/17 [ History] Insulin LISPRO [Humalog] 4 - 16 unit SQ TIDWM PRN 03/17/17 [History] Isosorbide MONOnitrate [Isosorbide Mononitrate ER] 120 mg PO DAILY 06/20/17 [ History] Aspirin 81 mg PO DAILY #30 tab.chew 06/21/17 [Rx] Allopurinol [Zyloprim 100 MG] 200 mg PO DAILY 07/24/17 [History] Calcium Acetate [Phos-LO] 1,334 mg PO TIDWM 07/24/17 [History] Albuterol Sulfate [Albuterol Inhaler] 2 puff IH Q6HR PRN 10/26/17 [History] Furosemide [Lasix] 20 mg PO BID 12/19/17 [History] Citalopram Hydrobromide [Citalopram HBr] 10 mg PO DAILY 04/13/18 [History] Hydralazine HCl 50 mg PO TID 04/13/18 [History] Metoprolol XL (24 HR) Succ [Toprol Xl] 100 mg PO DAILY tab.er.24h 04/13/18 [Rx] Omeprazole [PriLOSEC] 40 mg PO 0630 capsule. 04/13/18 [Rx] 3 Allergy/AdvReac Type Severity Reaction Status Date / Time bacitracin Allergy Rash Verified 04/12/18 21:57 [From Neosporin ([id number])] Neomycin Allergy Rash Verified 04/12/18 21:57 [From Neosporin ([id number])] polymyxin B Allergy Rash Verified 04/12/18 21:57 [From Neosporin ([id number])] atorvastatin AdvReac Cramping Verified 04/12/18 21:57 of the Muscles plastic Allergy Rash Uncoded 04/12/18 21:57 tape Allergy Rash Uncoded 04/12/18 21:57 Review of Systems Constitutional: fatigue, no chills, no fever(s) Nose, mouth and throat: no dizziness Cardiovascular: chest pain, dyspnea, no edema, no orthopnea, no pedal edema Respiratory: no cough Gastrointestinal: nausea, vomiting, no diarrhea Exam - Vital Signs Vital signs: Initial Vital Signs Temp Pulse Resp BP Pulse Ox 98 F 113 20 109/77 97 04/24/18 05:44 04/24/18 05:44 04/24/18 05:44 04/24/18 05:44 04/24/18 05:44 - General Appearance General appearance: well-developed, well-nourished EENT: ATNC, hearing intact, vision intact Neck: supple Respiratory: clear Cardiology: no edema, normal S1, normal S2 - Dialysis Access Dialysis Vascular Access: Arteriovenous Fistula thrill: Yes bruit: Yes Gastrointestinal: normoactive bowel sounds, no tenderness, no guarding Integumentary: no rash, warm and dry Neurologic: alert and oriented x3 Psychiatric: mood/affect appropriate, cooperative Results - Lab Results 04/24/18 05:50 04/24/18 05:50 Most recent lab results Calcium 8.3 mg/dL (8.6-10.3) L 04/24/18 05:50 Magnesium 2.1 mg/dL (1.6-2.6) 04/24/18 05:50 Consult Discharge Plan - Plan Referrals: Eleazar Calhoun MD [Primary Care Provider] -
[2018-04-24 11:11] LABS: Hepatitis B Surface Antibody 0.58 mIU/mL; Hepatitis B Surface Antigen Nonreactive (Nonreactive)
[2018-04-24] MEDS ORDERED: Ondansetron ODT 4 MG TAB.RAPDIS SL PRN (11:11)
[2018-04-24] MEDS ORDERED: Ondansetron 4 MG/2 ML VIAL IVP ONE (11:11)
[2018-04-24 11:15] LABS: Thyroid Stimulating Hormone 1.731 mcIU/mL (0.340-5.600)
[2018-04-24] MEDS ORDERED: Sodium Thiosulfate 25 GM in EMPTY BAG 1 EACH IVPB SCH (11:30)
[2018-04-24] MEDS: Insulin LISPRO 300 UNITS/3 ML VIAL SQ SCH ×3 (15:04→21:28)
[2018-04-24] MEDS: Calcium Acetate 667 MG CAPSULE PO SCH ×2 (15:08→15:12)
[2018-04-24] MEDS: *HR* Amiodarone 200 MG TABLET PO SCH (15:08)
[2018-04-24] MEDS: hydrALAZINE 25 MG TABLET PO SCH ×2 (15:09→21:29)
[2018-04-24] MEDS: Gabapentin 100 MG CAPSULE PO SCH ×2 (15:09→21:30)
[2018-04-24] MEDS: Sodium Thiosulfate 25 GM in EMPTY BAG 1 EACH IVPB SCH (15:12)
[2018-04-24] MEDS ORDERED: Furosemide 20 MG TABLET PO SCH (17:00)
--- NOTE | 2018-04-24 17:15 | Electrocardiograph Report ---
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
[2018-04-24] MEDS ORDERED: Perflutren Lipid Microsphere 1.3 ML in 0.9 % Sodium Chloride 8.7 ML IVP ONE (20:35)
[2018-04-24] MEDS: Insulin DETEMIR 100 UNIT/ML X5UNITS SQ SCH (21:30)
[2018-04-25 00:44] LABS: Basophils % 0.3 %; Eosinophils # 0.2 K/mcL (0.0-0.6); Eosinophils % 3.1 %; Hematocrit 30.7 % (35.3-44.9); Hemoglobin 9.8 g/dL (11.5-15.4); Immature Granulocytes % 0.4 % (0-4); Lymphocytes # 1.1 K/mcL (0.6-4.6); Lymphocytes % 16.5 %; Mean Corpuscular HGB Conc 31.9 g/dL (31.6-35.5); Mean Corpuscular Hemoglobin 31.1 pg (28.0-33.3); Mean Corpuscular Volume 97.5 fL (83.0-100.0); Mean Platelet Volume 10.3 fL (9.4-12.4); Monocytes # 0.4 K/mcL (0.0-1.3); Monocytes % 5.2 %; Neutrophils # 5.1 K/mcL (1.6-8.9); Platelet Count 157 K/mcL (140-400); Red Blood Count 3.15 M/mcL (3.82-4.97); Red Cell Distribution Width 15.4 % (11.5-14.5); Segmented Neutrophils % 74.5 %
[2018-04-25 00:59] LABS: Calcium 8.5 mg/dL (8.6-10.3); Magnesium 2.1 mg/dL (1.6-2.6); Potassium 3.8 mEq/L (3.5-5.1)
[2018-04-25] MEDS: *HR* Heparin 5,000 UNIT/ML VIAL IVP PRN ×2 (02:10→11:11)
[2018-04-25] MEDS ORDERED: 0.9 % Sodium Chloride 250 ML IVC PRN (08:01)
[2018-04-25] MEDS: Insulin LISPRO 300 UNITS/3 ML VIAL SQ SCH ×4 (08:37→21:23)
[2018-04-25] MEDS: *HR* Amiodarone 200 MG TABLET PO SCH (08:43)
[2018-04-25] MEDS: Metoprolol XL (24 HR) Succ 50 MG TAB.ER.24H PO SCH (08:43)
[2018-04-25] MEDS: Isosorbide MONOnitrate (24 HR) 60 MG TAB.ER.24H PO SCH (08:45)
[2018-04-25] MEDS: hydrALAZINE 25 MG TABLET PO SCH ×3 (08:45→21:24)
[2018-04-25] MEDS: Aspirin 81 MG TAB.CHEW PO SCH (08:46)
[2018-04-25] MEDS: Gabapentin 100 MG CAPSULE PO SCH ×3 (08:46→21:22)
[2018-04-25] MEDS: Furosemide 40 MG/4 ML VIAL IVP SCH (08:46)
[2018-04-25] MEDS: Calcium Acetate 667 MG CAPSULE PO SCH ×3 (08:46→17:23)
[2018-04-25] MEDS: Insulin DETEMIR 100 UNIT/ML X5UNITS SQ SCH ×2 (08:56→21:23)
--- NOTE | 2018-04-25 09:16 | Nephrology Progress Note ---
Date of Encounter: 04/25/18 Time of Encounter: 09:13 - Assessment and Plan (1) ESRD (end stage renal disease) on dialysis Current Visit: Yes Status: Chronic UF today to assist in removing excess fluids; patient unable to tolerate very long HD treatments due to cramping Plan for HD tomorrow Continue renal diet and strict I/Os Avoid nephrotoxins if possible (2) Calciphylaxis Current Visit: Yes Status: Acute Continue Sodium Thiosulfate (3) Chest pain Current Visit: Yes Status: Acute per cardiology team Qualifiers: Chest pain type: unspecified Qualified Code(s): R07.9 - Chest pain, unspecified Subjective Principal diagnosis: ESRD on dialysis, calciphylaxis Interval history: Patient seen and examined. States she is feeling "ok" today, still having some shortness of breath but it has improved Objective - Vital Signs Vital signs: Vital Signs Temp Pulse Resp BP Pulse Ox 04/25/18 04:25 67 18 126/98 96 04/25/18 01:08 97.8 F 68 18 109/61 98 04/24/18 21:08 98.2 F 76 18 161/76 97 04/24/18 16:32 97.4 F L 83 17 120/73 97 04/24/18 15:00 97.2 F L 18 130/90 04/24/18 14:30 135/74 04/24/18 14:15 141/79 04/24/18 14:00 146/81 04/24/18 13:45 126/86 04/24/18 13:30 143/84 04/24/18 13:15 142/82 04/24/18 13:00 146/81 04/24/18 12:45 133/85 04/24/18 12:30 132/70 04/24/18 12:15 124/80 04/24/18 12:00 116/94 04/24/18 11:45 123/93 04/24/18 11:30 97.6 F 18 119/78 Intake and Output 04/24/18 04/25/18 04/25/18 23:59 07:59 15:59 Intake Total 389 / 389 / 83 Balance 389 / 389 83 / 83 Intake: IV Fluids 149 / 149 83 / 83 Heparin 25,000 UNIT/500 ML D5W 149 / 149 83 25,000 unit In 500 ml @ 10.7 UNIT/KG/HR 19.899 mls/hr IVC . Q24H DELIO Rx#:[id number] Oral 240 / 240 0 / 0 Other: Meal Dinner Percent of Meal Consumed 100% # Voids 0 0 Weight 96.2 kg Blood Glucose* 142 Patient Weight 04/25/18 23:59 Weight 96.2 kg - General Appearance General appearance: Present: obese EENT: Present: ATNC, mucous membranes moist, hearing intact, vision intact Neck: Present: supple Respiratory: Present: clear Cardiology: Present: edema (mild BLL edema), normal S1, normal S2 Dialysis Vascular Access: Arteriovenous Fistula Gastrointestinal: Present: no tenderness, no guarding Integumentary: Present: warm and dry Neurologic: Present: alert and oriented x3 Psychiatric: Present: mood/affect appropriate, cooperative - Lab 04/25/18 00:19 04/25/18 00:19 Most recent lab results Calcium 8.5 mg/dL (8.6-10.3) L 04/25/18 00:19 Magnesium 2.1 mg/dL (1.6-2.6) 04/25/18 00:19 Consult Discharge Plan - Plan Referrals: Eleazar Calhoun MD [Primary Care Provider] -
[2018-04-25] MEDS ORDERED: 0.9 % Sodium Chloride 1,000 ML ONE (09:44)
--- NOTE | 2018-04-25 10:49 | Cardiology Progress Note ---
Date of Encounter: 04/25/18 Time of Encounter: 10:30 Assessment and Plan (1) Atrial fibrillation with rapid ventricular response Current Visit: Yes Status: Chronic Pt with hx of a fib with RVR -she has a chronic hx of a fib and has been on Coumadin before, but refuses anticoagulation tx because of past GI bleed -at this time the pt denies any active chest pain, palpitations -currently still having SOB ECHO on 10/2017 showed an EF of 50-55% LHC 10/2017 showed mild one vessel disease with patent stents CXR yesterday showed pulmonary edema ECHO 04/24/18 - LVEF 40-45%, global LV systolic dysfxn, concentric LVH, indeterminate diastolic fxn -mild MR, moderate MS (5mmHg at 83bpm), mild TR, mild SD, mild pHTN Plan: -continue aspirin 81mg PO daily -on Amiodarone 100mh PO daily and will continue this as an outpatient, as discussed by Dr. Ez Fritz -continue metroprolol 100mg PO with goal HR of 90-100 bpm -follow up as an outpatient for a fib management -[id number] socre of 6 -HASBLED score of 5 (2) Volume overload Current Visit: Yes Status: Acute Pt has a hx of CHF -as per above, ECHO on 10/2017 showed an EF of 50-55% and C 10/2017 showed mild one vessel disease with patent stents -BNP at 1550 on admission, heart dz vs CKD -CXR on admission showed pulmonary edema, there are crackles on examination -pt takes Lasix 20mg PO BID at home, states she takes medications as directed ECHO 04/24/18 - LVEF 40-45%, global LV systolic dysfxn, concentric LVH, indeterminate diastolic fxn -mild MR, moderate MS (5mmHg at 83bpm), mild TR, mild SD, mild pHTN Plan: -continue Lasix 40mg IVP daily -strict I&O's -daily weights -fluid restriction 1.5L per day (3) Elevated troponin Current Visit: Yes Status: Acute Pt has a known hx of CAD s/p stents x4 -troponin 0.36---> 0.39 ---> 0.29 ---> 0.24 ECHO 04/24/18 - LVEF 40-45%, global LV systolic dysfxn, concentric LVH, indeterminate diastolic fxn -mild MR, moderate MS (5mmHg at 83bpm), mild TR, mild SD, mild pHTN -Last ECHO was 10/2017 and showed EF 50-55% with normal wall motion -CXR yesterday showed pulmonary edema Pt was found to be in a fib with RVR -troponins elevated due to demand ischemia vs CKD Plan: -continue heparin as per protocol -will discuss ECHO results with attending and decide whether to offer LHC or not -GEREMIAS score of 4, which indicates benefit from early intervention -pt is on ASA 81mg PO daily, toprol 100mg PO daily -On amiodarone 100mg for control of a fib, currently rate controlled but still has irregular rhythm Discussion w patient/family: The assessment and plan as outlined above was discussed with the patient and/or family members who expressed understanding and agreement. All questions were answered. Thank you for involving us in the care of your patient. Please call with any questions. Subjective Principal diagnosis: ESRD on dialysis, calciphylaxis Interval history: Pt is seen at bedside. She originally presented for ongoing SOB, exertional/ nonexertional that was ongoing for a week and had been getting progressively worse -at baseline the pt is on 2L NC O2 at home -she had onset of chest pain that radiated to her shoulders bilaterally, rated as a 6/10 and was worse with exertion -the pt also endorses leg swelling and a weight roll changer the last week. Her reported dry weight is 93kg, today she is 96.2kg She has a PMH of CHF, ESRD on dialysis, CAD s/p stents x4, HTN, HLD, DM, and A fib In the ER the pt was found to be in a fib with RVR -given 1L of fluids -troponin elevated at 0.36 --> 0.39 ---> 0.29 ---> 0.24 -BNP of 1550 -pt started on heparin as per ACS protocol ECHO on 10/2017 showed an EF of 50-55% C 10/2017 showed mild one vessel disease with patent stents Currently the pt has no active chest pain, she still has SOB and cannot lay completely flat. She reports that she doesn't feel as swollen as she did yesterday. She denies any palpiltations, N/V/D, or abdominal pain -overall, the pt states she is doing much better Fluids - 0.9% NaCl as per primary Electrolytes - within normal limits Nutrition -cardiac/renal diet DVT prophylaxis - on heparin drip as per protocol GI prophylaxis - omeprazole 40mg PO Objective General: Conversant, No Apparent Distress HEENT: Atraumatic, Normocephaly Neck: No JVD Cardiac: Other (irregular rhythm, normal rate) Lungs: Other (crackles B/L lung field) Neuro: Alert and responsive Abdomen: Soft, Non-Tender Skin: No rashes noted on visualized skin Musculoskeletal: No Chest Wall Tenderness Results 04/25/18 00:19 04/25/18 00:19 Lab Results 04/24/18 04/24/18 04/25/18 17:20 23:08 00:19 WBC 6.8 Hgb 9.8 L Hct 30.7 L Plt Count 157 Sodium Potassium Chloride Carbon Dioxide BUN Creatinine Glucose Calcium Magnesium Troponin I 0.29 H* 0.24 H* 04/25/18 00:19 WBC Hgb Hct Plt Count Sodium 139 Potassium 3.8 Chloride 98 Carbon Dioxide 24 BUN 41 H Creatinine 4.78 H Glucose 155 H Calcium 8.5 L Magnesium 2.1 Troponin I Consult Discharge Plan - Plan Referrals: Eleazar Calhoun MD [Primary Care Provider] -
--- NOTE | 2018-04-25 12:14 | Internal Med Progress Note ---
Hospitalist Progress Note - Encounter Date of Encounter: 04/25/18 Time of Encounter: 12:11 - Subjective Interval History: Patient reported left-sided chest pressure and shortness of breath have improved after the dialysis yesterday. She denies chest pain at this point. - Exam Vitals: Temp Pulse Resp BP Pulse Ox 97.8 F 67 18 126/98 96 04/25/18 01:08 04/25/18 04:25 04/25/18 04:25 04/25/18 04:25 04/25/18 04:25 Exam: PHYSICAL EXAMINATION: GENERAL APPEARANCE: The patient is alert, oriented and in no acute distress. HEENT: Head is normocephalic. The sinuses are nontender. Pupils are equal and reactive. The nares are patent. Oropharynx clear without lesions. NECK: Supple without lymphadenopathy. HEART: Regular rate and rhythm. LUNGS: Diffuse crackles bilaterally. ABDOMEN: Soft, nontender, nondistended with good bowel sounds heard. Inguinal area is normal. EXTREMITIES: Right leg wound covered with dressing. NEUROLOGICAL: Gross nonfocal. SKIN: Warm and dry without any rash. - Assessment and Plan (1) Chest pain Current Visit: Yes Status: Acute Assessment and Plan: 68 year old female with past medical history of CAD stent, ESRD with dialysis, CHF, diabetes, hypertension, and atrial fibrillation presented with chest pressure/chest pain. Labs revealed higher than baseline troponin, EKG no acute ST-T change comparing prior EKG. - Patient had a remote history of CAD with stent placement, she is currently on aspirin, her recent cardiac catheter in 10/2017 showed minimal vascular disease , patent left main, LAD, RCA, 40% stenosis at mid circumflex. She was advised to continue medical management. She had a recent echocardiogram in 10/2017 showed a preserved ejection fraction, moderately impaired LV diastolic function. Repeat ECHO 04/24 EF 40-45%, global LV systolic dysfunction, mod to severe . - Chest x-ray revealed pulmonary edema. Troponin 0.36, 0.39, 0.29, 0.24. Last tow sets drawn after HD. - Given the near normal recent LHC, recent volume overload, worsening renal function, and pattern of troponin change, etiology likely type II ME rather than ACS/type I ME. will dc heparin gtt. continue daily aspirin. - Cardiology following. (2) Elevated troponin Current Visit: No Status: Acute Assessment and Plan: - Same as above. (3) Atrial fibrillation Current Visit: Yes Status: Chronic Assessment and Plan: Rate controlled with metoprolol and amiodarone, patient refuses anticoagulation due to history of GI bleeding. (4) CHF (congestive heart failure) Current Visit: Yes Status: Chronic Assessment and Plan: Patient received HD yesterday, volume status improved, continue IV Lasix, renal following. (5) ESRD (end stage renal disease) on dialysis Current Visit: Yes Status: Chronic Assessment and Plan: her hemodialysis schedule is Sunday/Sunday/Sunday. (6) CAD (coronary artery disease) Current Visit: No Status: Chronic Assessment and Plan: Same as above. (7) Diabetes Current Visit: No Status: Chronic Assessment and Plan: Continue home basal insulin dose, started patient on insulin sliding scale. (8) Hypertension Current Visit: No Status: Chronic Assessment and Plan: BP controlled, continue monitoring, continue home medication. (9) DVT prophylaxis Current Visit: No Status: Acute Assessment and Plan: heparin sq. - Time Spent with Patient Total time spent is greater than 50% in coordination of care (as documented) at patient's floor/unit and/or counseling patient: Greater than 35 minutes Plan of Care Discussed with: patient Internal Medicine: Result - Labs CBC & Chem 7: 04/25/18 00:19 04/25/18 00:19 Labs: Short CBC 04/25/18 Range/Units 00:19 WBC 6.8 (4.3-11.1) K/mcL Hgb 9.8 L (11.5-15.4) g/dL Hct 30.7 L (35.3-44.9) % Plt Count 157 (140-400) K/mcL Neutrophils # 5.1 (1.6-8.9) K/mcL BMP 04/25/18 00:19 Sodium 139 Potassium 3.8 Chloride 98 Carbon Dioxide 24 BUN 41 H Creatinine 4.78 H Glucose 155 H Calcium 8.5 L Cardiac Enzymes 04/24/18 04/24/18 Range/Units 17:20 23:08 Troponin I 0.29 H* 0.24 H* (< 0.04) ng/mL - ABG Interpretation ABG results: PT/INR, D-dimer PT 13.6 Seconds (9.4-12.1) H 04/24/18 05:50 Consult Discharge Plan - Plan Referrals: Eleazar Calhoun MD [Primary Care Provider] - (1) Chest pain Qualifiers: Chest pain type: unspecified Qualified Code(s): R07.9 - Chest pain, unspecified (3) Atrial fibrillation Qualifiers: Atrial fibrillation type: paroxysmal Qualified Code(s): I48.0 - Paroxysmal atrial fibrillation (4) CHF (congestive heart failure) Qualifiers: Heart failure type: unspecified Heart failure chronicity: acute Qualified Code(s): I50.9 - Heart failure, unspecified (6) CAD (coronary artery disease) Qualifiers: Coronary Disease-Associated Artery/Lesion type: [place] artery [place] vs. transplanted heart: [place] heart Associated angina: with unstable angina Qualified Code(s): I25.110 - Atherosclerotic heart disease of [place] coronary artery with unstable angina pectoris (7) Diabetes Qualifiers: Diabetes mellitus type: type 2 Diabetes mellitus intermediate card tender insulin use: with correction use Diabetes mellitus complication status: with kidney complications Diabetes mellitus complication detail: with chronic kidney disease Chronic kidney disease stage: on chronic dialysis Qualified Code(s): E11.22 - Type 2 diabetes mellitus with diabetic chronic kidney disease; N18.6 - End stage renal disease; Z99.2 - Dependence on renal dialysis; Z99.2 - Dependence on renal dialysis; Z99.2 - Dependence on renal dialysis; N18.6 - End stage renal disease ; N18.6 - End stage renal disease; N18.6 - End stage renal disease; Z79.4 - remote computer terminal operator (current) use of insulin; Z79.4 - shelter (current) use of insulin; Z79.4 - remote computer terminal operator (current) use of insulin; Z79.4 - shelter (current) use of insulin; Z99.2 - Dependence on renal dialysis (8) Hypertension Qualifiers: Hypertension type: essential hypertension Qualified Code(s): I10 - Essential (primary) hypertension
--- NOTE | 2018-04-25 16:28 | Electrocardiograph Report ---
[address] [place], [place] [address] Test Date: 2018-04-24 Pat Name: Vicky Madden Department: 111 Room: 2NE28 Gender: F Cardiovascular Surgeon: ALBERTO : 1950 Requested By: Vaibhav Luna Order Number: [id number] Reading MD: Radha Dougherty Measurements Intervals [place] Rate: 75 P: [place]: 0 QRS: -59 QRSD: 175 T: 113 QT: 443 QTc: 472 Interpretive Statements ATRIAL FIBRILLATION INTRAVENTRICULAR CONDUCTION DELAY LATERAL MYOCARDIAL INFARCTION, INDETERMINATE AGE INFERIOR MYOCARDIAL INFARCTION, INDETERMINATE AGE Electronically Signed On 04-25-2018 16:27:22 EDT by Radha Dougherty
--- NOTE | 2018-04-25 18:01 | Event Note ---
Date of Encounter: 04/25/18 Time of Encounter: 18:01 I attempted to see and evaluate patient earlier today. She was off the floor. I will attempt again tomorrow and provide attestation to the resident physician' s consultation.
[2018-04-25] MEDS: *HR* Heparin 5,000 UNIT/ML VIAL SQ SCH (18:45)
[2018-04-26 05:02] LABS: Basophils % 0.4 %; Eosinophils # 0.2 K/mcL (0.0-0.6); Eosinophils % 4.2 %; Hematocrit 26.2 % (35.3-44.9); Hemoglobin 8.1 g/dL (11.5-15.4); Immature Granulocytes % 0.7 % (0-4); Lymphocytes # 1.1 K/mcL (0.6-4.6); Lymphocytes % 20.1 %; Mean Corpuscular HGB Conc 30.9 g/dL (31.6-35.5); Mean Corpuscular Hemoglobin 29.8 pg (28.0-33.3); Mean Corpuscular Volume 96.3 fL (83.0-100.0); Mean Platelet Volume 9.7 fL (9.4-12.4); Monocytes # 0.5 K/mcL (0.0-1.3); Monocytes % 9.2 %; Neutrophils # 3.6 K/mcL (1.6-8.9); Platelet Count 157 K/mcL (140-400); Red Blood Count 2.72 M/mcL (3.82-4.97); Red Cell Distribution Width 15.3 % (11.5-14.5); Segmented Neutrophils % 65.4 %
[2018-04-26 05:18] LABS: Calcium 8.1 mg/dL (8.6-10.3); Potassium 4.5 mEq/L (3.5-5.1)
[2018-04-26] MEDS: *HR* Heparin 5,000 UNIT/ML VIAL SQ SCH ×2 (06:00→16:45)
[2018-04-26] MEDS ORDERED: 0.9 % Sodium Chloride 250 ML IVC PRN (07:40)
[2018-04-26] MEDS: Insulin LISPRO 300 UNITS/3 ML VIAL SQ SCH ×4 (08:22→20:50)
[2018-04-26] MEDS: Aspirin 81 MG TAB.CHEW PO SCH (08:24)
[2018-04-26] MEDS: Gabapentin 100 MG CAPSULE PO SCH ×3 (08:24→20:49)
[2018-04-26] MEDS: Insulin DETEMIR 100 UNIT/ML X5UNITS SQ SCH ×2 (08:32→20:49)
--- NOTE | 2018-04-26 09:15 | Nephrology Progress Note ---
Date of Encounter: 04/26/18 Time of Encounter: 09:09 - Assessment and Plan (1) ESRD (end stage renal disease) on dialysis Current Visit: Yes Status: Chronic HD today Was unable to tolerate the ultrafiltration yesterday due to low b/p; start Midodrine 2.5mg p.o. in am on hemodialysis days only (MWF) Continue renal diet and strict I/Os Avoid nephrotoxins if possible (2) Calciphylaxis Current Visit: Yes Status: Acute Continue Sodium Thiosulfate (3) Chest pain Current Visit: Yes Status: Acute per cardiology team Qualifiers: Chest pain type: unspecified Qualified Code(s): R07.9 - Chest pain, unspecified Subjective Principal diagnosis: ESRD on dialysis, calciphylaxis Interval history: Patient seen and examined in dialysis. Still c/o shortness of breath Objective - Vital Signs Vital signs: Vital Signs Temp Pulse Resp BP Pulse Ox 04/26/18 06:27 97.6 F 72 16 111/61 98 04/26/18 04:00 98.2 F 76 17 99/63 97 04/26/18 00:00 98.2 F 78 17 104/58 99 04/25/18 21:24 103/69 04/25/18 18:47 98.3 F 80 18 104/48 99 04/25/18 15:39 70 17 92/57 96 04/25/18 13:05 97.5 F L 18 108/64 04/25/18 12:00 97.2 F L 18 90/50 Intake and Output 04/25/18 04/26/18 04/26/18 23:59 07:59 15:59 Intake Total 240 / 240 Output Total 500 / 500 Balance -260 / -260 Intake: Oral 240 / 240 Output: Urine 500 / 500 Other: # Voids 1 Weight 95.9 kg Blood Glucose* 202 117 Patient Weight 04/26/18 23:59 Weight 95.9 kg - General Appearance General appearance: Present: obese EENT: Present: ATNC, mucous membranes moist, hearing intact, vision intact Neck: Present: supple Respiratory: Present: clear Cardiology: Present: edema, normal S1, normal S2 Dialysis Vascular Access: Arteriovenous Fistula Gastrointestinal: Present: no tenderness, no guarding Integumentary: Present: warm and dry Neurologic: Present: alert and oriented x3 Psychiatric: Present: mood/affect appropriate, cooperative - Lab 04/26/18 04:33 04/26/18 04:33 Most recent lab results Calcium 8.1 mg/dL (8.6-10.3) L 04/26/18 04:33 Magnesium 2.1 mg/dL (1.6-2.6) 04/25/18 00:19 Consult Discharge Plan - Plan Referrals: Eleazar Calhoun MD [Primary Care Provider] -
[2018-04-26] MEDS: Furosemide 40 MG/4 ML VIAL IVP SCH (10:35)
[2018-04-26] MEDS: Isosorbide MONOnitrate (24 HR) 60 MG TAB.ER.24H PO SCH (10:38)
[2018-04-26] MEDS ORDERED: Heparin 1,000 UNITS/500 mL 500 ML ONE ×3 (10:48→14:51)
[2018-04-26] MEDS ORDERED: 0.9 % Sodium Chloride 500 ML ONE ×2 (10:49→11:08)
[2018-04-26] MEDS ORDERED: *HR* FentaNYL (PF) 100 MCG/2 ML VIAL IVP ONE (11:13)
[2018-04-26] MEDS ORDERED: *HR* Midazolam HCl 2 MG/2 ML VIAL IVP ONE (11:13)
--- NOTE | 2018-04-26 11:14 | Pre-Sedation Evaluation ---
Pre-sedation evaluation - Pre-sedation checklist Date of procedure: 04/26/18 Procedure: fistulagram, possible permacath Recent Vitals: Last Vital Signs Temp 97.6 F 04/26/18 06:27 Pulse 77 04/26/18 11:12 Resp 15 04/26/18 11:12 BP 138/61 04/26/18 11:12 Pulse Ox 98 04/26/18 06:27 H&P (including ROS) documented in medical record: Yes Previous reaction to sedatives/anesthetics: No Dietary Status: NPO after Midnight Airway Assessment: Patient can open mouth completely, TMJ function normal Dentition: No loose teeth or bridges, dentures removed ASA Classification *see protocol: CLASS II-Mild systemic disease Cardiac Registry (Cardio Only) - Functional Capacity - Clincal Frailty Scale
--- NOTE | 2018-04-26 11:52 | Internal Med Progress Note ---
Hospitalist Progress Note - Encounter Date of Encounter: 04/26/18 Time of Encounter: 11:50 - Subjective Interval History: Patient reported left-sided chest pressure and shortness of breath have improved after the dialysis. She denies chest pain at this point. - Exam Vitals: Temp Pulse Resp BP Pulse Ox 97.6 F 70 15 136/72 97 04/26/18 06:27 04/26/18 11:45 04/26/18 11:45 04/26/18 11:45 04/26/18 11:45 Exam: PHYSICAL EXAMINATION: GENERAL APPEARANCE: The patient is alert, oriented and in no acute distress. HEENT: Head is normocephalic. The sinuses are nontender. Pupils are equal and reactive. The nares are patent. Oropharynx clear without lesions. NECK: Supple without lymphadenopathy. HEART: Regular rate and rhythm. LUNGS: scattered crackles bilaterally. ABDOMEN: Soft, nontender, nondistended with good bowel sounds heard. Inguinal area is normal. EXTREMITIES: right leg wound noted. NEUROLOGICAL: Gross nonfocal. SKIN: Warm and dry without any rash. - Assessment and Plan (1) Chest pain Current Visit: Yes Status: Acute Assessment and Plan: 68 year old female with past medical history of CAD stent, ESRD with dialysis, CHF, diabetes, hypertension, and atrial fibrillation presented with chest pressure/chest pain. Labs revealed higher than baseline troponin, EKG no acute ST-T change comparing prior EKG. - Patient had a remote history of CAD with stent placement, she is currently on aspirin, her recent cardiac catheter in 10/2017 showed minimal vascular disease , patent left main, LAD, RCA, 40% stenosis at mid circumflex. She was advised to continue medical management. She had a recent echocardiogram in 10/2017 showed a preserved ejection fraction, moderately impaired LV diastolic function. Repeat ECHO 04/24 EF 40-45%, global LV systolic dysfunction, mod to severe . - Chest x-ray revealed pulmonary edema. Troponin 0.36, 0.39, 0.29, 0.24. Last tow sets drawn after HD. Volume status has much improved after HD, plan another HD today per renal. - Cardiology following. (2) Elevated troponin Current Visit: No Status: Acute Assessment and Plan: - Same as above. (3) Atrial fibrillation Current Visit: Yes Status: Chronic Assessment and Plan: Rate controlled with metoprolol and amiodarone, patient refuses anticoagulation due to history of GI bleeding. (4) CHF (congestive heart failure) Current Visit: Yes Status: Chronic Assessment and Plan: volume status improved, continue IV Lasix, renal following. (5) ESRD (end stage renal disease) on dialysis Current Visit: Yes Status: Chronic Assessment and Plan: her hemodialysis schedule is Sunday/Sunday/Sunday. (6) CAD (coronary artery disease) Current Visit: No Status: Chronic Assessment and Plan: Same as above. (7) Diabetes Current Visit: No Status: Chronic Assessment and Plan: Continue home basal insulin dose, started patient on insulin sliding scale. (8) Hypertension Current Visit: No Status: Chronic Assessment and Plan: BP controlled, continue monitoring, continue home medication. (9) DVT prophylaxis Current Visit: Yes Status: Acute Assessment and Plan: heparin sq. - Time Spent with Patient Total time spent is greater than 50% in coordination of care (as documented) at patient's floor/unit and/or counseling patient: Greater than 35 minutes Plan of Care Discussed with: patient Internal Medicine: Result - Labs CBC & Chem 7: 04/26/18 04:33 04/26/18 04:33 Labs: Short CBC 04/26/18 Range/Units 04:33 WBC 5.5 (4.3-11.1) K/mcL Hgb 8.1 L D (11.5-15.4) g/dL Hct 26.2 L (35.3-44.9) % Plt Count 157 (140-400) K/mcL Neutrophils # 3.6 (1.6-8.9) K/mcL BMP 04/26/18 04:33 Sodium 136 Potassium 4.5 Chloride 97 L Carbon Dioxide 26 BUN 66 H Creatinine 6.84 H Glucose 112 H Calcium 8.1 L - ABG Interpretation ABG results: PT/INR, D-dimer PT 13.6 Seconds (9.4-12.1) H 04/24/18 05:50 Consult Discharge Plan - Plan Referrals: Eleazar Calhoun MD [Primary Care Provider] - (1) Chest pain Qualifiers: Chest pain type: unspecified Qualified Code(s): R07.9 - Chest pain, unspecified (3) Atrial fibrillation Qualifiers: Atrial fibrillation type: paroxysmal Qualified Code(s): I48.0 - Paroxysmal atrial fibrillation (4) CHF (congestive heart failure) Qualifiers: Heart failure type: unspecified Heart failure chronicity: acute Qualified Code(s): I50.9 - Heart failure, unspecified (6) CAD (coronary artery disease) Qualifiers: Coronary Disease-Associated Artery/Lesion type: [place] artery [place] vs. transplanted heart: [place] heart Associated angina: with unstable angina Qualified Code(s): I25.110 - Atherosclerotic heart disease of [place] coronary artery with unstable angina pectoris (7) Diabetes Qualifiers: Diabetes mellitus type: type 2 Diabetes mellitus invasive manager insulin use: with invasive manager use Diabetes mellitus complication status: with kidney complications Diabetes mellitus complication detail: with chronic kidney disease Chronic kidney disease stage: on chronic dialysis Qualified Code(s): E11.22 - Type 2 diabetes mellitus with diabetic chronic kidney disease; N18.6 - End stage renal disease; Z99.2 - Dependence on renal dialysis; Z99.2 - Dependence on renal dialysis; Z99.2 - Dependence on renal dialysis; N18.6 - End stage renal disease ; N18.6 - End stage renal disease; N18.6 - End stage renal disease; Z79.4 - jail (current) use of insulin; Z79.4 - chemist steroids (current) use of insulin; Z79.4 - chemist steroids (current) use of insulin; Z79.4 - jail (current) use of insulin; Z99.2 - Dependence on renal dialysis (8) Hypertension Qualifiers: Hypertension type: essential hypertension Qualified Code(s): I10 - Essential (primary) hypertension
--- NOTE | 2018-04-26 12:26 | IR Procedure Note ---
Date of procedure: 04/26/18 Consent Obtained: Verbal consent, Written consent Timeout: Correct patient and procedure verified, Correct site verified, Time out performed, Skin prep completed Local anesthetic: Lidocaine 1% Indications: poor functioning fistula Procedure Performed: RUE fistulogram and angioplasty Was there an radiology assistant present: No Site/Technique: right arm Results/Findings: high grade stenosis peripheral venous outflow Estimated blood loss (cc): 0 Complications: None; Tolerated procedure well Post Procedure Treatment Plan: possible permacath if dialysis does not go well Specimen: NA
[2018-04-26] MEDS: hydrALAZINE 25 MG TABLET PO SCH ×2 (14:02→20:50)
[2018-04-26] MEDS: Metoprolol XL (24 HR) Succ 50 MG TAB.ER.24H PO SCH (14:02)
[2018-04-26] MEDS: *HR* Amiodarone 200 MG TABLET PO SCH (14:02)
[2018-04-26] MEDS: Sodium Thiosulfate 25 GM in EMPTY BAG 1 EACH IVPB SCH (14:30)
[2018-04-26] MEDS ORDERED: Verapamil 5 MG/2 ML VIAL ONE (14:50)
[2018-04-26] MEDS ORDERED: *HR* Heparin 10,000 UNIT/10 ML VIAL ONE (14:51)
[2018-04-26] MEDS ORDERED: 0.9 % Sodium Chloride 1,000 ML ONE ×2 (14:51→15:00)
[2018-04-26] MEDS ORDERED: ISOVUE-370 200 ML INFUS..BTL IV ONE (14:51)
[2018-04-26] MEDS ORDERED: Nitroglycerin 1,000 MCG/10 ML VIAL IV ONE (14:51)
--- NOTE | 2018-04-26 15:26 | Pre-Sedation Evaluation ---
Pre-sedation evaluation - Pre-sedation checklist Date of procedure: 04/26/18 Procedure: selective coronary angiography Recent Vitals: Last Vital Signs Temp 97.1 F L 04/26/18 12:50 Pulse 85 04/26/18 12:07 Resp 18 04/26/18 12:50 BP 125/67 04/26/18 15:20 Pulse Ox 97 04/26/18 12:07 H&P (including ROS) documented in medical record: Yes Previous reaction to sedatives/anesthetics: No Dietary Status: NPO after Midnight Dentition: No loose teeth or bridges, dentures removed ASA Classification *see protocol: CLASS II-Mild systemic disease Plan of Care: Pt appropriate candidate for procedure/moderate/conscious sedation , Risks/benefits of procedure/sedation discussed w/ patient/family Cardiac Registry (Cardio Only) - Functional Capacity Functional Capacity: >=4 METS with symptoms - Clincal Frailty Scale Clinical Frailty Scale: Vulnerable
[2018-04-26] MEDS ORDERED: *HR* Midazolam HCl 2 MG/2 ML VIAL ONE (16:13)
[2018-04-26] MEDS ORDERED: *HR* FentaNYL (PF) 100 MCG/2 ML VIAL ONE (16:13)
--- NOTE | 2018-04-26 17:00 | Invasive Diagnostic Lab Proc ---
Name: Vicky Madden Date of Study: 04/26/2018 Date: 1950 Ht: 65.0in Medical Record#: [id number] Age: 68 Wt: 209.44lb Gender: Female BSA: 2.02 Order #: [id number] BMI: 34.89 Physicians Procedure Physician: Noman Anthony MD, [facility] Referring MD: Referring MD: Staff Name Position Time In ChadKhadar RT (R) Scrub 04:11 PM [facility] RT (R) Monitor 04:11 PM Jackie Richards RN Medical Instructor 04:11 PM Indications Indication Unstable Angina Procedures Performed Procedure L HRT ARTERY/VENTRICLE ANGIO Pre-Procedure Checklist Informed consent is complete signed and on chart. H&P is on chart. ID band is on and ID verified with patient. Patient NPO for procedure The procedure was described for the patient and questions were answered. ECG is on chart. Rhythm: NSR Plan of Care Patient will tolerate the procedure without complications. Adequate level of comfort will be maintained. Hemodynamics will remain stable Patient will recover from procedure without complications. Respiratory function will be maintained. Cardiac rhythm will remain stable. Patient temperature will be maintained. Patient and/or family have verbalized understanding of the procedure. Patient Education Chief Complaint/Reason for Test: Cardiac Cath Developmental Category: Geriatric (65+ years) Developmentally Appropriate for Age: Yes Learning Barriers: None Education Needs: Procedure Education Method: Verbal Information Taught: Cardiac Cath Educational Evaluation: Able to repeat information Intravenous Access Time IV Size Location DC'd Fluid/Drip Rate Units RN 22g 1" Patent On Arrival Lt Arm 0.9NaCl 25 ml/hr Jackie Richards RN Allergies bacitracin polymyxin B atorvastatin plastic neosporin, tape Neomycin Vital Signs Time BP (mmHg) HR (bpm) O2 Sat. RR (bpm) LOC 04:12 PM / % 5 = Fully awake and oriented or at pre-proc level 04:11 PM 107 / 78 104 86 % 23 04:17 PM 130 / 65 76 96 % 16 04:21 PM 116 / 66 80 93 % 15 04:26 PM 98 / 52 80 93 % 13 04:31 PM 101 / 54 89 96 % 12 04:36 PM 103 / 51 78 95 % 13 04:13 PM / % 4 = Oriented but drowsy Procedural Medications Time Medication Dose Units Method Given By 04:12 PM Oxygen 2 L/min nasal cannula Jackie Richards RN 04:16 PM Versed 2 mg Intravenous Jackie Richards RN 04:17 PM Fentanyl 50 mcg Intravenous Jackie Richards RN 04:23 PM Lidocaine 2% 20 ml Subcutaneous Noman Anthony MD, [facility] 04:26 PM Oxygen 5 L/min Oxy Mask Jackie Richards RN ASA Classification: CLASS II- Mild systemic disease (i.e. well-controlled diabetes, hypertension, asthma, cigarette smoking) Ngozi Score Preprocedure Postprocedure Activity 2- Moves 4 extremities sustained head lift Activity 2- Moves 4 extremities sustained head lift Circulation 2- SBP +/= 20 points of pre-anesthetic level Circulation 2- SBP +/= 20 points of pre-anesthetic level Consciousness 2- Awake and alert oriented x 3 Consciousness 2- Awake and alert oriented x 3 O2 Saturation 2- Able to maintain O2 satruation of 92% on room air O2 Saturation 2- Able to maintain O2 satruation of 92% on room air Respiratory 2- Able to deep breathe and cough well Respiratory 2- Able to deep breathe and cough well Total Score 10 Total Score 10 Contrast Agent: Isovue Diagnostic Contrast: 66 ml Total Contrast: 66 ml Fluoro Dose: 32 mGy Procedure Log Time Note Enter By 04:10 PM CathStat 04:10 PM Vitals capture started with the following parameters, Patient=Adult, Interval=5 min, Initial Piqhpxzd=761 mmHg, Deflation Rate=3 mmHg, Cuff placed on Right Arm 04:11 PM Pt arrived to labor expediter 1 at 16:11 tsites 04:11 PM Khadar Bonilla RT (R) Position: Scrub Time in: 16:11 tsites 04:11 PM Ginny Meadows RT (R) Position: Monitor Time in: 16:11 tsites 04:11 PM Jackie Richards RN Position: Medical Instructor Time in: 16:11 tsites 04:11 PM Patient charges- Angio tray pack, Navilyst 3mm J, Pulse Oximetry and ACIST tubing and transducer tsites 04:11 PM RH=222 bpm, CGSZ=026/78 mmhg, SpO2=86.0 %, Resp=23 B/min 04:11 PM Case Delayed No tsites 04:11 PM Physician arrived 16:11 tsites 04:11 PM Meet and greet completed tsites 04:11 PM Sign in performed according to hospital policy. tsites 04:12 PM Procedure start 16:11 tsites 04:12 PM Time: 16:12 Oxygen on at 2 L/min per nasal cannula by Jackie Richards RN tsites 04:12 PM Recorded ECG: HR=92 Condition=Condition 1 04:12 PM Time: 16:12 Patient comfortable and pain free: Yes tsites 04:13 PM Time: 16:12LOC: 5 = Fully awake and oriented or at pre-proc level tsites 04:13 PM Clinical Presentation: No symptoms, no angina tsites 04:13 PM Hair removed from procedure site in holding area using clippers. Bilateral groin prepped with Chloraprep by Maribel Ayala (R), then patient was draped. Skin intact. tsites 04:17 PM Time: 16:16 Versed 2 mg Intravenous Given by Jackie Richards RN tsites 04:17 PM Time: 16:17 Fentanyl 50 mcg Intravenous Given by Jackie Richards RN tsites 04:17 PM HR=76 bpm, JOAR=835/65 mmhg, SpO2=96.0 %, Resp=16 B/min 04:18 PM Pressure channel 1 zeroed. 04:21 PM HR=80 bpm, EABC=079/66 mmhg, SpO2=93 %, Resp=15 B/min 04:23 PM Time out performed according to hospital policy tsites 04:24 PM Time: 16:23 20 ml Lidocaine 2% to right groin Subcutaneous Given by Noman Anthony MD, [facility] tsites 04:25 PM Access obtained by percutaneous puncture. 5Fr 10cm Terumo Norman sheath placed in right Femoral artery. [id number] tsites 04:26 PM 5Fr FL 4 catheter inserted over the wire [facility] tsites 04: PM 0.035 145cm Navilyst 3mmJ wire [id number] tsites 04:26 PM Time: 16:26 Oxygen on at 5 L/min per Oxy Mask by Jackie Richards RN tsites 04:26 PM HR=80 bpm, NIBP=98/52 mmhg, SpO2=93 %, Resp=13 B/min 04:26 PM LCA angiography performed in multiple views. tsites 04:27 PM Recorded Pressure: Ao, HR=65, Condition=Condition 1 (Aorta) Ao 78/30/46 04:27 PM Time: 16:12 Patient comfortable and pain free: Yes tsites 04:28 PM Time: 16:13LOC: 4 = Oriented but drowsy tsites 04:28 PM Lesion found in Mid LAD. Pre Stenosis: 60 Pre GEREMIAS Flow: tsites 04:29 PM Lesion found in Proximal Circumflex. Pre Stenosis: 70 Pre GEREMIAS Flow: tsites 04:29 PM Circumflex, Obtuse Marginal, Left Posterior Descending, and Left Posterolateral Coronary Arteries with 70 % stenosis. If graft is supplying this area, 0 % stenosis tsites 04:29 PM Mid/Distal Left Anterior Descending Coronary Artery and diagonal branches with 60% stenosis. If graft is supplying this area, 0 % stenosis tsites 04:29 PM wire reinserted catheter removed tsites 04:30 PM RCA angiography performed in multiple views. tsites 04:30 PM Recorded Pressure: Ao, HR=76, Condition=Condition 1 (Aorta) Ao 147/39/89 04:30 PM Coronary Dominance: right tsites 04:31 PM Lesion found in Proximal RCA. Pre Stenosis: 40 Pre GEREMIAS Flow: tsites 04:31 PM Right Coronary, Right Posterior Descending Arteries with Right Posterolateral and Acute Marginal branches with 40 % stenosis. If graft is supplying this area, 0 % stenosis tsites 04:31 PM wire reinserted catheter removed tsites 04:31 PM HR=89 bpm, KRMB=585/54 mmhg, SpO2=96 %, Resp=12 B/min 04:32 PM Recorded Pressure: LV, HR=80, Condition=Condition 1 (Left Ventricle) LV 117/7/12 04:32 PM 5Fr Pigtail catheter inserted over the wire [facility] tsites 04:32 PM Catheter selectively placed in left ventricle tsites 04:33 PM Bolus angiogram of left Ventricle complete: 10 ml/sec for a total of 30 mls tsites 04:34 PM Recorded Pressure: LV, HR=90, Condition=Condition 1 (Left Ventricle) LV 128/13/21 04:34 PM Recorded Pressure: LV, Ao, HR=89, Condition=Condition 1 (Left Ventricle) LV 129/5/15, (Aorta) Ao 101/48/74 04:35 PM wire reinserted catheter removed tsites 04:35 PM Bolus angiogram of right Femoral complete: 2 ml/sec for a total of 4 mls tsites 04:36 PM HR=78 bpm, YQRI=500/51 mmhg, SpO2=95.0 %, Resp=13 B/min 04:38 PM Procedure completed at 16:38 04/26/2018 tsites 04:39 PM Sign out completed: Radiation Dose 284 mGy, 32 Gy/cm2 Fluoro Time: 0.9 Isovue 370 - 200ml contrast 65.9 ml given by Noman Anthony MD, [facility]. Complications: NoneCardiac Rehab Consult needed: NoConfirmed administered medications: No tsites 04:40 PM Isovue 370 - 200ml,1 Bottle(s) used. tsites 04:40 PM Arterial sheath pulled, Mynx closure device used and was Successful S/N. tsites 04:40 PM Estimated Blood Loss: minimal tsites 04:40 PM Post ECG Wide qrs complex tsites 04:41 PM Post Blood Pressure 103/51 tsites 04:41 PM 16:41 Post Pulses Bilateral DP & PT 1+ tsites 04:41 PM Information taught Cardiac Cath and Mynx tsites 04:41 PM Education needs Procedure, Plan of Care, and Responsibilities of Patient in Care tsites 04:41 PM Learning barriers :None tsites 04:41 PM Education Methods Verbal tsites 04:41 PM Education evaluation Able to repeat information tsites 04:42 PM Site status No bleeding/hematoma - Rt Groin as reported by Khadar Bonilla RT (R) at 16:41 tsites 04:42 PM Opsite applied tsites 04:42 PM Report given to tracee FITZGERALD Pt taken to E Room #28. 16:42 tsites 04:43 PM Delay to floor No tsites 04:43 PM Patient out of room: 16:43 tsites 04:43 PM Family placed in consult room. tsites Complications Complication None Hemodynamics Pressures Site Systolic/A Wave Diastolic/V Wave Mean AO 78 30 46 AO 147 39 89 LV 117 7 12 LV 128 13 21 LV 129 5 15 AO 101 48 74 Post Procedure Information Blood Pressure: 103/51 mmHg Rhythm: Wide qrs complex Post procedural instructions were given Closure Device Time Device Success/Fail 04/26/2018 4:44:00 PM MynxGrip Successful Site Checks Time Location Status Staff Sheath In? Note 04:41 PM Rt Groin No bleeding/hematoma Khadar Bonilla RT (R) Pulses Time Site Pre-Procedure Post-Procedure Note Bilateral DP & PT 2+ Bilateral radial 2+ 4:41:00 PM Bilateral DP & PT 1+ Updated by Ginny Sites, RT (R) on 04/26/2018 4:48:33 PM Ginny Sites, RT electronically signed on 04/26/2018 4:51:17 PM with status of Final
[2018-04-27 03:20] LABS: Basophils % 0.4 %; Eosinophils # 0.2 K/mcL (0.0-0.6); Eosinophils % 4.1 %; Hematocrit 27.1 % (35.3-44.9); Hemoglobin 8.5 g/dL (11.5-15.4); Immature Granulocytes % 0.5 % (0-4); Lymphocytes # 0.6 K/mcL (0.6-4.6); Lymphocytes % 11.4 %; Mean Corpuscular HGB Conc 31.4 g/dL (31.6-35.5); Mean Corpuscular Hemoglobin 30.5 pg (28.0-33.3); Mean Corpuscular Volume 97.1 fL (83.0-100.0); Mean Platelet Volume 9.4 fL (9.4-12.4); Monocytes # 0.4 K/mcL (0.0-1.3); Monocytes % 7.1 %; Neutrophils # 4.3 K/mcL (1.6-8.9); Platelet Count 170 K/mcL (140-400); Red Blood Count 2.79 M/mcL (3.82-4.97); Red Cell Distribution Width 15.4 % (11.5-14.5); Segmented Neutrophils % 76.5 %
[2018-04-27 03:39] LABS: Calcium 8.1 mg/dL (8.6-10.3); Potassium 4.1 mEq/L (3.5-5.1)
[2018-04-27] MEDS: *HR* Heparin 5,000 UNIT/ML VIAL SQ SCH ×2 (06:01→16:58)
[2018-04-27] MEDS: Insulin LISPRO 300 UNITS/3 ML VIAL SQ SCH ×4 (08:16→20:22)
[2018-04-27] MEDS: Metoprolol XL (24 HR) Succ 50 MG TAB.ER.24H PO SCH ×2 (09:45→16:58)
[2018-04-27] MEDS: *HR* Amiodarone 200 MG TABLET PO SCH (09:45)
[2018-04-27] MEDS: hydrALAZINE 25 MG TABLET PO SCH ×3 (09:45→20:22)
[2018-04-27] MEDS: Furosemide 40 MG/4 ML VIAL IVP SCH ×2 (09:45→16:58)
[2018-04-27] MEDS: Gabapentin 100 MG CAPSULE PO SCH ×3 (09:46→20:21)
[2018-04-27] MEDS: Aspirin 81 MG TAB.CHEW PO SCH (09:46)
[2018-04-27] MEDS: Insulin DETEMIR 100 UNIT/ML X5UNITS SQ SCH ×2 (09:47→20:21)
[2018-04-27] MEDS: Isosorbide MONOnitrate (24 HR) 60 MG TAB.ER.24H PO SCH (09:47)
--- NOTE | 2018-04-27 09:51 | Nephrology Progress Note ---
Date of Encounter: 04/27/18 Time of Encounter: 10:30 - Assessment and Plan (1) ESRD (end stage renal disease) on dialysis Current Visit: Yes Status: Chronic She last dialyzed on Sunday but her RUE AVF was not working and had very poor flows per the inpt HD RNs earlier this weeks, and so after spending about 35 min in care coordination, I was able to work in this pt for a same day Fistulagram with IR in which she did require angioplasty of the venous segment of her RUE AVF and then she was able to return to the dialysis unti (same day) and completed her treatment plus received the Na thiosulfate for her calciphylaxis. Next HD planned for Sunday. I will be available tomorrow (Sunday) if needed. Thank you (2) Calciphylaxis Current Visit: Yes Status: Acute Continue Sodium Thiosulfate. Avoid Ca based phos-binders, so I've already changed her to Renvella. When she returns to her chronic dialysis unit with Dr. Marin, I'd recommend avoidance of Hectorol but recommend switching to Sensipar d/t the Calciphylaxis. Continue regular wound care and counseled the pt to focus on ideal renal diet adherence. (3) Anemia in chronic kidney disease (CKD) Current Visit: Yes Status: Chronic Goal Hgb is 10-11. I've arrange for EPO on the low dose, inpatient weekly level with Sandra, but after this hospitalization, she should return to receiving EPO at her HD unit. Transfusion parameters as per primary. Qualifiers: Chronic kidney disease stage: on chronic dialysis Qualified Code(s): N18.6 - End stage renal disease; D63.1 - Anemia in chronic kidney disease; Z99.2 - Dependence on renal dialysis (4) Chest pain Current Visit: Yes Status: Acute As per primary Qualifiers: Chest pain type: unspecified Qualified Code(s): R07.9 - Chest pain, unspecified Subjective Principal diagnosis: ESRD on dialysis, calciphylaxis Interval history: Pt was seen and examined. She did not affirm N/V/D and voiced that her swelling is mild at this point. She voiced appreciation for helping work her in for a Fistulagram yesterday. Objective - Vital Signs Vital signs: Vital Signs Temp Pulse Resp BP Pulse Ox 04/27/18 07:25 97.9 F 74 16 107/57 97 08/11/18 05:00 97.9 F 67 15 112/58 99 04/27/18 00:53 97.8 F 78 15 111/57 99 04/26/18 20:37 78 16 126/79 98 04/26/18 19:30 97.7 F 77 15 129/68 98 04/26/18 18:15 78 116/64 99 04/26/18 17:45 83 118/63 100 04/26/18 17:30 92 116/76 100 04/26/18 17:15 82 124/72 96 04/26/18 17:00 78 16 118/91 96 04/26/18 16:48 97.6 F 16 127/62 04/26/18 16:05 115/76 04/26/18 15:50 121/79 04/26/18 15:35 141/73 04/26/18 15:20 125/67 04/26/18 15:05 130/66 04/26/18 14:50 130/66 04/26/18 14:35 156/76 04/26/18 14:20 130/70 04/26/18 14:05 136/75 04/26/18 13:50 124/64 04/26/18 13:35 121/66 04/26/18 13:20 124/78 04/26/18 13:05 128/72 04/26/18 12:50 97.1 F L 18 121/66 04/26/18 12:07 85 14 114/71 97 04/26/18 12:01 70 12 122/78 96 04/26/18 11:56 61 12 114/58 96 04/26/18 11:51 69 14 121/79 97 04/26/18 11:50 76 14 123/75 97 04/26/18 11:45 70 15 136/72 97 04/26/18 11:37 82 14 128/75 97 04/26/18 11:31 74 13 130/76 97 04/26/18 11:26 73 12 120/72 95 04/26/18 11:21 70 13 120/72 90 04/26/18 11:12 77 15 138/61 Intake and Output 04/26/18 04/27/18 04/27/18 23:59 07:59 15:59 Intake Total 360 / 360 360 / 360 240 / 240 Output Total 2881 / 2881 200 / 200 Balance -2521 / -2521 160 / 160 240 / 240 Intake: Oral 360 / 360 360 / 360 240 / 240 Output: Urine 0 / 0 200 / 200 Total Dialysis (HD) Output 2881 / 2881 Other: Meal Dinner Breakfast Percent of Meal Consumed 95% 90% Weight 95 kg Blood Glucose* 166 Hemodialysis Net Fluid Removed 2281 (mL) Patient Weight 04/27/18 23:59 Weight 95 kg - General Appearance Exam: General appearance: Present: obese EENT: Present: ATNC, mucous membranes moist, hearing intact, vision intact Neck: Present: supple Respiratory: Present: clear Cardiology: Present: edema, normal S1, normal S2, trace pretibial pitting edema bilaterally Dialysis Vascular Access: Arteriovenous Fistula, Right forearm, +thrill/bruit Gastrointestinal: Present: no tenderness, no guarding Integumentary: Present: warm and dry Neurologic: Present: alert and oriented x3 Psychiatric: Present: mood/affect appropriate, cooperative - Lab 04/27/18 03:04 04/27/18 03:04 Most recent lab results Calcium 8.1 mg/dL (8.6-10.3) L 04/27/18 03:04 Magnesium 2.1 mg/dL (1.6-2.6) 04/25/18 00:19 Consult Discharge Plan - Plan Referrals: Eleazar Calhoun MD [Primary Care Provider] -
--- NOTE | 2018-04-27 13:03 | Cardiology Progress Note ---
Date of Encounter: 04/27/18 Time of Encounter: 13:01 Assessment and Plan (1) CAD in [place] of [place] artery Current Visit: No Status: Acute Date of CAD, LHC yesterday demonstrated a proximal 70-80% circumflex stenosis. Trial of aspirin and Plavix recommended by interventional cardiology. Possible future PCI to circumflex if tolerates without significant change in hemoglobin. Hemoglobin stable today compared to yesterday, will start Plavix in addition to aspirin. Check hemoglobin as outpatient. Continue statin and beta rancho therapy. (2) Atrial fibrillation Current Visit: Yes Status: Chronic Atrial fibrillation with RVR today. Recommend increase amiodarone to 200 mg daily. Increase Toprol to an additional 50 mg in the evening. Qualifiers: Atrial fibrillation type: paroxysmal Qualified Code(s): I48.0 - Paroxysmal atrial fibrillation (3) Aortic stenosis Current Visit: No Status: Acute Possible severe aortic stenosis suggested by TTE. LHC performed yesterday, catheter easily crossed the aortic valve, which suggests probable moderate aortic stenosis. Continue to monitor for now. No compelling indication for intervention at this time. Qualifiers: Cardiac valve disease etiology: etiology unspecified Qualified Code(s): I35.0 - Nonrheumatic aortic (valve) stenosis Discussion w patient/family: The assessment and plan as outlined above was discussed with the patient and/or family members who expressed understanding and agreement. All questions were answered. Thank you for involving us in the care of your patient. Please call with any questions. Subjective Principal diagnosis: ESRD on dialysis, calciphylaxis Interval history: Patient seen and examined earlier this morning. This is a late entry. Overall , reports her status is stable. Denies chest pain. Heart rate somewhat tachycardic this morning, 100s to 110s. Objective Vital Signs, Last 4 Hours Temp Pulse Resp BP Pulse Ox 04/27/18 11:45 98.1 F 113 16 101/62 97 04/27/18 11:20 107/57 General: Conversant, No Apparent Distress HEENT: Atraumatic, Normocephaly, Mucus Membranes Moist Neck: No JVD, Normal carotid pulses Cardiac: Other (Irregular rate and rhythm, distant.) Lungs: Other (Shallow bilaterally.) Abdomen: Soft, Non-Tender Skin: No rashes noted on visualized skin Musculoskeletal: No Chest Wall Tenderness Extremities: No Clubbing, No Cyanosis Results 04/27/18 03:04 04/27/18 03:04 Lab Results 04/27/18 04/27/18 03:04 03:04 WBC 5.6 Hgb 8.5 L Hct 27.1 L Plt Count 170 Sodium 135 L Potassium 4.1 Chloride 97 L Carbon Dioxide 26 BUN 36 H Creatinine 4.71 H Glucose 83 Calcium 8.1 L - Imaging and Cardiology Echo: report reviewed Cardiac cath: report reviewed Consult Discharge Plan - Plan Referrals: Eleazar Calhoun MD [Primary Care Provider] -
--- NOTE | 2018-04-27 13:51 | Internal Med Progress Note ---
Hospitalist Progress Note - Encounter Date of Encounter: 04/27/18 Time of Encounter: 13:46 - Subjective Interval History: Patient reported left-sided chest pressure and shortness of breath have improved after the dialysis. She denies chest pain at this point. - Exam Vitals: Temp Pulse Resp BP Pulse Ox 98.1 F 113 16 101/62 97 04/27/18 11:45 04/27/18 11:45 04/27/18 11:45 04/27/18 11:45 04/27/18 11:45 - Assessment and Plan (1) CAD (coronary artery disease) Current Visit: Yes Status: Chronic Assessment and Plan: 68 year old female with past medical history of CAD with stent, ESRD with dialysis, CHF, diabetes, hypertension, and atrial fibrillation presented with chest pressure/chest pain. Labs revealed higher than baseline troponin, EKG no acute ST-T change comparing prior EKG. - Patient had a remote history of CAD with stent placement, she is currently on aspirin, her recent cardiac catheter in 10/2017 showed minimal vascular disease , patent left main, LAD, RCA, 40% stenosis at mid circumflex. She was advised to continue medical management. She had a recent echocardiogram in 10/2017 showed a preserved ejection fraction, moderately impaired LV diastolic function. Repeat ECHO 04/24 EF 40-45%, global LV systolic dysfunction, mod to severe . - Chest x-ray revealed pulmonary edema. Troponin 0.36, 0.39, 0.29, 0.24. Last tow sets drawn after HD. Volume status has much improved after HD. - She underwent LHC 04/27 which showed 60-70% stenosis at mid circumflex. Due to hx of GI bleed, cardio planed to start pt on DAPT and monitoring H/H, if pt tolerate, will stent the lesion in 3 month. - continue other meds including BB. - cards following. (2) Elevated troponin Current Visit: No Status: Acute Assessment and Plan: - Same as above. (3) Atrial fibrillation Current Visit: Yes Status: Chronic Assessment and Plan: HR was high last night around 110, doses of metoprolol and amiodarone adjusted by cards, patient refuses anticoagulation due to history of GI bleeding. (4) CHF (congestive heart failure) Current Visit: Yes Status: Chronic Assessment and Plan: volume status improved, continue IV Lasix and HD every other day, renal following. (5) ESRD (end stage renal disease) on dialysis Current Visit: Yes Status: Chronic Assessment and Plan: her hemodialysis schedule is Sunday/Sunday/Sunday. Underwent right fistulogram and angioplasty 04/26, AVF function restored and had a successful HD subsequently. Lasix dose adjusted by renal. appreciate help. (6) Diabetes Current Visit: No Status: Chronic Assessment and Plan: Continue home basal insulin dose, started patient on insulin sliding scale. (7) Hypertension Current Visit: No Status: Chronic Assessment and Plan: BP controlled, continue monitoring, continue home medication. (8) DVT prophylaxis Current Visit: Yes Status: Acute Assessment and Plan: heparin sq. - Time Spent with Patient Total time spent is greater than 50% in coordination of care (as documented) at patient's floor/unit and/or counseling patient: Greater than 35 minutes Plan of Care Discussed with: patient Internal Medicine: Result - Labs CBC & Chem 7: 04/27/18 03:04 04/27/18 03:04 Labs: Short CBC 04/27/18 Range/Units 03:04 WBC 5.6 (4.3-11.1) K/mcL Hgb 8.5 L (11.5-15.4) g/dL Hct 27.1 L (35.3-44.9) % Plt Count 170 (140-400) K/mcL Neutrophils # 4.3 (1.6-8.9) K/mcL BMP 04/27/18 03:04 Sodium 135 L Potassium 4.1 Chloride 97 L Carbon Dioxide 26 BUN 36 H Creatinine 4.71 H Glucose 83 Calcium 8.1 L - ABG Interpretation ABG results: PT/INR, D-dimer PT 13.6 Seconds (9.4-12.1) H 04/24/18 05:50 Consult Discharge Plan - Plan Referrals: Eleazar Calhoun MD [Primary Care Provider] - (1) CAD (coronary artery disease) Qualifiers: Coronary Disease-Associated Artery/Lesion type: [place] artery [place] vs. 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: with halfway use Diabetes mellitus complication status: with kidney complications Diabetes mellitus complication detail: with chronic kidney disease Chronic kidney disease stage: on chronic dialysis Qualified Code(s): E11.22 - Type 2 diabetes mellitus with diabetic chronic kidney disease; N18.6 - End stage renal disease; Z99.2 - Dependence on renal dialysis; Z99.2 - Dependence on renal dialysis; Z99.2 - Dependence on renal dialysis; N18.6 - End stage renal disease ; N18.6 - End stage renal disease; N18.6 - End stage renal disease; Z79.4 - USP (current) use of insulin; Z79.4 - USP (current) use of insulin; Z79.4 - [place] (current) use of insulin; Z79.4 - meterman (current) use of insulin; Z99.2 - Dependence on renal dialysis (7) Hypertension Qualifiers: Hypertension type: essential hypertension Qualified Code(s): I10 - Essential (primary) hypertension
[2018-04-28 05:05] LABS: Basophils % 0.3 %; Eosinophils # 0.3 K/mcL (0.0-0.6); Eosinophils % 4.6 %; Hematocrit 27.6 % (35.3-44.9); Hemoglobin 8.4 g/dL (11.5-15.4); Immature Granulocytes % 0.5 % (0-4); Lymphocytes # 1.2 K/mcL (0.6-4.6); Lymphocytes % 19.9 %; Mean Corpuscular HGB Conc 30.4 g/dL (31.6-35.5); Mean Corpuscular Hemoglobin 30.5 pg (28.0-33.3); Mean Corpuscular Volume 100.4 fL (83.0-100.0); Mean Platelet Volume 9.9 fL (9.4-12.4); Monocytes # 0.6 K/mcL (0.0-1.3); Monocytes % 9.3 %; Platelet Count 170 K/mcL (140-400); Red Blood Count 2.75 M/mcL (3.82-4.97); Red Cell Distribution Width 15.6 % (11.5-14.5); Segmented Neutrophils % 65.4 %
[2018-04-28 05:20] LABS: Potassium 4.8 mEq/L (3.5-5.1)
[2018-04-28] MEDS: *HR* Heparin 5,000 UNIT/ML VIAL SQ SCH ×2 (05:42→17:49)
[2018-04-28] MEDS: hydrALAZINE 25 MG TABLET PO SCH ×3 (08:14→20:43)
[2018-04-28] MEDS: Furosemide 40 MG/4 ML VIAL IVP SCH ×2 (08:14→17:49)
[2018-04-28] MEDS: Isosorbide MONOnitrate (24 HR) 60 MG TAB.ER.24H PO SCH (08:15)
[2018-04-28] MEDS: Gabapentin 100 MG CAPSULE PO SCH ×3 (08:15→20:42)
[2018-04-28] MEDS: Aspirin 81 MG TAB.CHEW PO SCH (08:15)
[2018-04-28] MEDS: Metoprolol XL (24 HR) Succ 50 MG TAB.ER.24H PO SCH ×2 (08:17→18:05)
[2018-04-28] MEDS: Insulin LISPRO 300 UNITS/3 ML VIAL SQ SCH ×4 (08:17→21:59)
[2018-04-28] MEDS: Insulin DETEMIR 100 UNIT/ML X5UNITS SQ SCH ×2 (08:22→20:43)
--- NOTE | 2018-04-28 10:20 | Internal Med Progress Note ---
Hospitalist Progress Note - Encounter Date of Encounter: 04/28/18 Time of Encounter: 10:18 - Subjective Interval History: Patient reported left-sided chest pressure and shortness of breath have improved after the dialysis. She denies chest pain at this point. - Exam Vitals: Temp Pulse Resp BP Pulse Ox 98.1 F 63 17 122/67 98 04/28/18 06:32 04/28/18 06:32 04/28/18 06:32 04/28/18 06:32 04/28/18 06:32 - Assessment and Plan (1) CAD (coronary artery disease) Current Visit: Yes Status: Chronic Assessment and Plan: 68 year old female with past medical history of CAD with stent, ESRD with dialysis, CHF, diabetes, hypertension, and atrial fibrillation presented with chest pressure/chest pain. Labs revealed higher than baseline troponin, EKG no acute ST-T change comparing prior EKG. - Patient had a remote history of CAD with stent placement, she is currently on aspirin, her recent cardiac catheter in 10/2017 showed minimal vascular disease , patent left main, LAD, RCA, 40% stenosis at mid circumflex. She was advised to continue medical management. She had a recent echocardiogram in 10/2017 showed a preserved ejection fraction, moderately impaired LV diastolic function. Repeat ECHO 04/24 EF 40-45%, global LV systolic dysfunction, mod to severe . - Chest x-ray revealed pulmonary edema. Troponin 0.36, 0.39, 0.29, 0.24. Last tow sets drawn after HD. Volume status has much improved after HD. - She underwent LHC 04/27 which showed 60-70% stenosis at proximal circumflex. Due to hx of GI bleed, cardio started pt on DAPT on 04/27, if pt tolerate, will stent the lesion in 3 month. monitoring H/H, if stable, will dc home tomorrow. - continue other meds including statin, BB. - cards following. (2) Elevated troponin Current Visit: No Status: Acute Assessment and Plan: - Same as above. (3) Atrial fibrillation Current Visit: Yes Status: Chronic Assessment and Plan: HR was high last night around 110, doses of metoprolol and amiodarone adjusted by cards, patient refuses anticoagulation due to history of GI bleeding. (4) CHF (congestive heart failure) Current Visit: Yes Status: Chronic Assessment and Plan: volume status improved, continue IV Lasix and HD every other day, renal following. (5) ESRD (end stage renal disease) on dialysis Current Visit: Yes Status: Chronic Assessment and Plan: her hemodialysis schedule is Sunday/Sunday/Sunday. Underwent right fistulogram and angioplasty 04/26, AVF function restored and had a successful HD subsequently. Lasix dose adjusted by renal. appreciate help. (6) Diabetes Current Visit: No Status: Chronic Assessment and Plan: Continue home basal insulin dose, started patient on insulin sliding scale. (7) Hypertension Current Visit: No Status: Chronic Assessment and Plan: BP controlled, continue monitoring, continue home medication. (8) DVT prophylaxis Current Visit: Yes Status: Acute Assessment and Plan: heparin sq. - Time Spent with Patient Total time spent is greater than 50% in coordination of care (as documented) at patient's floor/unit and/or counseling patient: Greater than 35 minutes Plan of Care Discussed with: patient Internal Medicine: Result - Labs CBC & Chem 7: 04/28/18 04:16 04/28/18 04:16 Labs: Short CBC 04/28/18 Range/Units 04:16 WBC 6.1 (4.3-11.1) K/mcL Hgb 8.4 L (11.5-15.4) g/dL Hct 27.6 L (35.3-44.9) % Plt Count 170 (140-400) K/mcL Neutrophils # 4.0 (1.6-8.9) K/mcL BMP 04/28/18 04:16 Sodium 140 Potassium 4.8 Chloride 98 Carbon Dioxide 28 BUN 62 H Creatinine 6.35 H Glucose 94 Calcium 8.0 L - ABG Interpretation ABG results: PT/INR, D-dimer PT 13.6 Seconds (9.4-12.1) H 04/24/18 05:50 Consult Discharge Plan - Plan Referrals: Eleazar Calhoun MD [Primary Care Provider] - (1) CAD (coronary artery disease) Qualifiers: Coronary Disease-Associated Artery/Lesion type: [place] artery [place] vs. transplanted heart: [place] heart Associated angina: with unstable angina Qualified Code(s): I25.110 - Atherosclerotic heart disease of [place] coronary artery with unstable angina pectoris (3) Atrial fibrillation Qualifiers: Atrial fibrillation type: paroxysmal Qualified Code(s): I48.0 - Paroxysmal atrial fibrillation (4) CHF (congestive heart failure) Qualifiers: Heart failure type: unspecified Heart failure chronicity: acute Qualified Code(s): I50.9 - Heart failure, unspecified (6) Diabetes Qualifiers: Diabetes mellitus type: type 2 Diabetes mellitus [facility] insulin use: with shortage worker use Diabetes mellitus complication status: with kidney complications Diabetes mellitus complication detail: with chronic kidney disease Chronic kidney disease stage: on chronic dialysis Qualified Code(s): E11.22 - Type 2 diabetes mellitus with diabetic chronic kidney disease; N18.6 - End stage renal disease; Z99.2 - Dependence on renal dialysis; Z99.2 - Dependence on renal dialysis; Z99.2 - Dependence on renal dialysis; N18.6 - End stage renal disease ; N18.6 - End stage renal disease; N18.6 - End stage renal disease; Z79.4 - supervisor fabrication 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
[2018-04-29 04:21] LABS: Basophils % 0.3 %; Eosinophils # 0.4 K/mcL (0.0-0.6); Eosinophils % 4.9 %; Hematocrit 28.1 % (35.3-44.9); Hemoglobin 8.6 g/dL (11.5-15.4); Immature Granulocytes % 0.4 % (0-4); Lymphocytes # 1.1 K/mcL (0.6-4.6); Lymphocytes % 15.2 %; Mean Corpuscular HGB Conc 30.6 g/dL (31.6-35.5); Mean Corpuscular Hemoglobin 30.5 pg (28.0-33.3); Mean Corpuscular Volume 99.6 fL (83.0-100.0); Monocytes # 0.6 K/mcL (0.0-1.3); Monocytes % 8.7 %; Neutrophils # 5.1 K/mcL (1.6-8.9); Platelet Count 180 K/mcL (140-400); Red Blood Count 2.82 M/mcL (3.82-4.97); Red Cell Distribution Width 15.5 % (11.5-14.5); Segmented Neutrophils % 70.5 %
[2018-04-29 04:39] LABS: Calcium 8.3 mg/dL (8.6-10.3)
[2018-04-29] MEDS: *HR* Heparin 5,000 UNIT/ML VIAL SQ SCH (05:48)
[2018-04-29] MEDS ORDERED: 0.9 % Sodium Chloride 250 ML IVC PRN (07:20)
[2018-04-29] MEDS ORDERED: 0.9 % Sodium Chloride 1,000 ML ONE (07:48)
[2018-04-29] MEDS: Insulin LISPRO 300 UNITS/3 ML VIAL SQ SCH ×2 (08:13→13:10)
[2018-04-29] MEDS: Aspirin 81 MG TAB.CHEW PO SCH (08:18)
[2018-04-29] MEDS: Gabapentin 100 MG CAPSULE PO SCH (08:18)
[2018-04-29] MEDS: hydrALAZINE 25 MG TABLET PO SCH ×2 (08:19→12:47)
[2018-04-29] MEDS: Furosemide 40 MG/4 ML VIAL IVP SCH (08:19)
[2018-04-29] MEDS: Isosorbide MONOnitrate (24 HR) 60 MG TAB.ER.24H PO SCH ×2 (08:19→12:46)
[2018-04-29] MEDS: Metoprolol XL (24 HR) Succ 50 MG TAB.ER.24H PO SCH ×2 (08:20→12:46)
[2018-04-29] MEDS: Insulin DETEMIR 100 UNIT/ML X5UNITS SQ SCH (08:26)
--- NOTE | 2018-04-29 10:12 | Discharge Summary ---
- NOTES TO OUTPATIENT PROVIDER Notes to Outpatient Provider: f/u with cardiology within a week. f/u with PCP within a week. reauil regular HD schedule. Orders not resulted at time of discharge: Pending orders 04/26/18 13:31 CL Cardiac Catheterization [CL] Routine 04/28/18 08:30 EKG [ECG 12 lead ECG] [ECG] Stat Date of Encounter: 04/29/18 Time of Encounter: 10:10 - Discharge Diagnosis (1) CAD (coronary artery disease) Priority: Primary Status: Chronic Assessment and Plan: 68 year old female with past medical history of CAD with stent, ESRD with dialysis, CHF, diabetes, hypertension, and atrial fibrillation presented with chest pressure/chest pain. Labs revealed higher than baseline troponin, EKG no acute ST-T change comparing prior EKG. - Patient had a remote history of CAD with stent placement, she is currently on aspirin, her recent cardiac catheter in 10/2017 showed minimal vascular disease , patent left main, LAD, RCA, 40% stenosis at mid circumflex. She was advised to continue medical management. She had a recent echocardiogram in 10/2017 showed a preserved ejection fraction, moderately impaired LV diastolic function. Repeat ECHO 04/24 EF 40-45%, global LV systolic dysfunction, mod to severe . - Chest x-ray revealed pulmonary edema. Troponin 0.36, 0.39, 0.29, 0.24. Last tow sets drawn after HD. Volume status has much improved after HD. - She underwent LHC 04/27 which showed 60-70% stenosis at proximal circumflex. Due to hx of GI bleed, cardio started pt on DAPT on 04/27, if pt tolerate, will stent the lesion in 3 month. monitoring H/H, if stable, will dc home tomorrow. - continue other meds including statin, BB. - cards following. Qualifiers: Coronary Disease-Associated Artery/Lesion type: [place] artery [place] vs. transplanted heart: [place] heart Associated angina: with unstable angina Qualified Code(s): I25.110 - Atherosclerotic heart disease of [place] coronary artery with unstable angina pectoris (2) Elevated troponin Priority: Primary Status: Acute Assessment and Plan: - Same as above. (3) Atrial fibrillation Priority: Secondary Status: Chronic Assessment and Plan: HR was high last night around 110, doses of metoprolol and amiodarone adjusted by cards, patient refuses anticoagulation due to history of GI bleeding. Qualifiers: Atrial fibrillation type: paroxysmal Qualified Code(s): I48.0 - Paroxysmal atrial fibrillation (4) CHF (congestive heart failure) Priority: Secondary Status: Chronic Assessment and Plan: volume status improved, continue IV Lasix and HD every other day, renal following. Qualifiers: Heart failure type: diastolic Heart failure chronicity: acute Qualified Code(s): I50.31 - Acute diastolic (congestive) heart failure (5) ESRD (end stage renal disease) on dialysis Priority: Secondary Status: Chronic Assessment and Plan: her hemodialysis schedule is Sunday/Sunday/Sunday. Underwent right fistulogram and angioplasty 04/26, AVF function restored and had a successful HD subsequently. Lasix dose adjusted by renal. appreciate help. (6) Diabetes Priority: Secondary Status: Chronic Assessment and Plan: Continue home basal insulin dose, started patient on insulin sliding scale. Qualifiers: Diabetes mellitus type: type 2 Diabetes mellitus occ therapy asst insulin use: with fci use Diabetes mellitus complication status: with kidney complications Diabetes mellitus complication detail: with chronic kidney disease Chronic kidney disease stage: on chronic dialysis Qualified Code(s) : E11.22 - Type 2 diabetes mellitus with diabetic chronic kidney disease; N18.6 - End stage renal disease; Z99.2 - Dependence on renal dialysis; Z99.2 - Dependence on renal dialysis; Z99.2 - Dependence on renal dialysis; N18.6 - End stage renal disease; N18.6 - End stage renal disease; N18.6 - End stage renal disease; Z79.4 - skilled nursing (current) use of insulin; Z79.4 - cable supervisor (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 Qualifiers: Hypertension type: essential hypertension Qualified Code(s): I10 - Essential (primary) hypertension (8) DVT prophylaxis Priority: Primary Status: Acute Assessment and Plan: heparin sq. Hospital course: 68 year old female with past medical history of CAD with stent, ESRD with dialysis, CHF, diabetes, hypertension, and atrial fibrillation presented with chest pressure/chest pain. Labs revealed higher than baseline troponin, EKG no acute ST-T change comparing prior EKG. Patient had a remote history of CAD with stent placement, she is currently on aspirin, her recent cardiac catheter in 2017 showed minimal vascular disease, patent left main, LAD, RCA, and 40% stenosis at mid circumflex. She was advised to continue medical management at that time by cardiology. She had a recent echocardiogram in 10/2017 showed a preserved ejection fraction, moderately impaired LV diastolic function. Repeat ECHO 04/24 EF 40-45%, global LV systolic dysfunction, mod to severe . Chest x- ray revealed pulmonary edema. Troponin 0.36, 0.39, 0.29, 0.24. Last two sets drawn after HD. Volume status has much improved after HD and IV lasix. She underwent fistulagram on 04/27 and angioplasty was performed due to AVF malfunction. She underwent LHC 04/27 which showed 60-70% stenosis at proximal circumflex. Due to hx of GI bleed, cardio started pt on DAPT on 04/27, if pt tolerate, will stent the lesion in 3 months. Her H/H has been stable for 2 days. She will have another HD today and then will be dc home. She will continue meds including statin, BB. She will f/u with PCP and Cardiology within a week. Discharge discussed with: patient Time spent discussing smoking cessation with patient: more than 10 minutes - Time Spent with Patient Total time spent providing and/or coordinating discharge services: Greater than 30 minutes - Discharge Medications Prescriptions: Clopidogrel [Plavix] 75 mg PO DAILY #30 tablet Furosemide [Lasix] 40 mg PO BID #60 tablet Sevelamer [Renvela] 1,600 mg PO TIDWM #90 tablet Home Medications: Gabapentin [Neurontin] 100 mg PO TID 03/17/17 [History] Insulin Glargine,Hum.rec.anlog [Lantus Solostar] 18 - 20 unit SQ BID 03/17/17 [ History] Insulin LISPRO [Humalog] 4 - 16 unit SQ TIDWM PRN 03/17/17 [History] Isosorbide MONOnitrate [Isosorbide Mononitrate ER] 120 mg PO DAILY 06/20/17 [ History] Aspirin 81 mg PO DAILY #30 tab.chew 06/21/17 [Rx] Allopurinol [Zyloprim 100 MG] 200 mg PO DAILY 07/24/17 [History] Calcium Acetate [Phos-LO] 1,334 mg PO TIDWM 07/24/17 [History] Albuterol Sulfate [Albuterol Inhaler] 2 puff IH Q6HR PRN 10/26/17 [History] Citalopram Hydrobromide [Citalopram HBr] 10 mg PO DAILY 04/13/18 [History] Hydralazine HCl 50 mg PO TID 04/13/18 [History] Metoprolol XL (24 HR) Succ [Toprol Xl] 100 mg PO DAILY tab.er.24h 04/13/18 [Rx] Omeprazole [PriLOSEC] 40 mg PO 0630 capsule. 04/13/18 [Rx] Clopidogrel [Plavix] 75 mg PO DAILY #30 tablet 04/29/18 [Rx] Furosemide [Lasix] 40 mg PO BID #60 tablet 04/29/18 [Rx] Sevelamer [Renvela] 1,600 mg PO TIDWM #90 tablet 04/29/18 [Rx] Allergies/Adverse Reactions: 3 Allergy/AdvReac Type Severity Reaction Status Date / Time bacitracin Allergy Rash Verified 04/12/18 21:57 [From Neosporin ([id number])] Neomycin Allergy Rash Verified 04/12/18 21:57 [From Neosporin ([id number]-[id number])] polymyxin B Allergy Rash Verified 04/12/18 21:57 [From Neosporin ([id number]-[id number])] atorvastatin AdvReac Cramping Verified 04/12/18 21:57 of the Muscles plastic Allergy Rash Uncoded 04/12/18 21:57 tape Allergy Rash Uncoded 04/12/18 21:57 Date of admission: 04/24/18 10:28 Primary care physician: Eleazar Calhoun MD Consults: 04/24/18 13:49 Consult to Wound Care [CONS] Routine Reason for Consult: 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 sees wound clinic as outpatient. Call Completed: No 04/25/18 08:15 Consult to Dialysis [CONS] ONCE 04/26/18 07:45 Consult to Dialysis [CONS] ONCE 04/26/18 10:01 Consult to Interventional Radiology [CONS] Stat Consulting Provider: Radiology Interventional Cols Reason for Consult: Please eval for fistulagram today (she has very poor flows and unable to cannulate). She has a thrill and bruit distally but proximal an accentuated bruit (so she likely does not need a thrombectomy). if can't be worked in today, please assist withe Temp line placement Call Completed: Yes 04/29/18 07:30 Consult to Dialysis [CONS] ONCE Anticipated date of discharge: 04/29/18 - Constitutional Vitals: Temp Pulse Resp BP Pulse Ox 96.9 F L 96 12 123/86 98 04/29/18 07:30 04/29/18 07:30 04/29/18 07:30 04/29/18 07:30 04/29/18 07:30 General appearance: Present: cooperative, A&O X 3, answers questions appropriately Exam: PHYSICAL EXAMINATION: GENERAL APPEARANCE: The patient is alert, oriented and in no acute distress. HEENT: Head is normocephalic. The sinuses are nontender. Pupils are equal and reactive. The nares are patent. Oropharynx clear without lesions. NECK: Supple without lymphadenopathy. HEART: Regular rate and rhythm. LUNGS: No crackles or wheezes are heard. ABDOMEN: Soft, nontender, nondistended with good bowel sounds heard. Inguinal area is normal. EXTREMITIES: AVF positive thrill and bruit. NEUROLOGICAL: Gross nonfocal. SKIN: Warm and dry without any rash. - Patient Status Disposition: Home, Self-Care Condition: Fair Functional capacity at discharge: independent ambulation Overall status at discharge: patient is progressing back to baseline - Discharge Instructions Follow Up With: Eleazar Calhoun MD [Primary Care Provider] - Forms: ED Satisfaction Letter - Diet and Activity Activity: increase activity as tolerated Diet: diabetic diet, low fat, low cholesterol, low salt diet
--- NOTE | 2018-04-29 11:53 | Nephrology Progress Note ---
<Oanh Rush - Last Filed: 04/29/18 11:50> Date of Encounter: 04/29/18 Time of Encounter: 11:50 - Assessment and Plan (1) ESRD (end stage renal disease) on dialysis Status: Chronic Current regimen is MWF with Dr. Hurst. Had difficulty with fistula on Sunday, did require intervention and is now running efficiently. Renal Diet. Avoid nephrotoxins and renal dose all medications. (2) Chest pain Status: Acute As per primary Qualifiers: Chest pain type: unspecified Qualified Code(s): R07.9 - Chest pain, unspecified (3) Calciphylaxis Status: Acute Continue Sodium Thiosulfate. Continue wound care. (4) Anemia in chronic kidney disease (CKD) Status: Chronic Goal Hgb is 10-11. Transfusion parameters as per primary. Qualifiers: Chronic kidney disease stage: on chronic dialysis Qualified Code(s): N18.6 - End stage renal disease; D63.1 - Anemia in chronic kidney disease; Z99.2 - Dependence on renal dialysis Subjective Principal diagnosis: ESRD on dialysis, calciphylaxis Interval history: Pt seen and examined during HD. V/S stable. Denies CP/SOB nausea or vomiting. Objective - Vital Signs Vital signs: Vital Signs Temp Pulse Resp BP Pulse Ox 04/29/18 07:30 96.9 F L 96 12 123/86 98 04/29/18 04:00 98 F 62 15 114/66 99 04/28/18 20:45 100 04/28/18 20:00 97.9 F 67 15 119/73 97 04/28/18 13:00 98.1 F 64 15 116/56 100 Intake and Output 04/28/18 04/29/18 04/29/18 23:59 07:59 15:59 Intake Total 360 / 360 240 / 240 Output Total 450 / 450 500 / 500 Balance -90 / -90 -260 / -260 Intake: Oral 360 / 360 240 / 240 Output: Urine 450 / 450 500 / 500 Other: Meal Lunch Percent of Meal Consumed 65% Weight 94.8 kg Blood Glucose* 138 82 Patient Weight 04/29/18 23:59 Weight 94.8 kg - General Appearance General appearance: Present: well-developed, well-nourished EENT: Present: ATNC, hearing intact, vision intact Neck: Present: supple Respiratory: Present: clear Cardiology: Present: no edema, normal S1, normal S2 Dialysis Vascular Access: Arteriovenous Fistula thrill: Yes bruit: Yes Gastrointestinal: Present: normoactive bowel sounds, no tenderness, no guarding Integumentary: Present: no rash, warm and dry Neurologic: Present: alert and oriented x3 Psychiatric: Present: mood/affect appropriate, cooperative - Lab 04/29/18 03:32 04/29/18 03:32 Most recent lab results Calcium 8.3 mg/dL (8.6-10.3) L 04/29/18 03:32 Magnesium 2.1 mg/dL (1.6-2.6) 04/25/18 00:19 Consult Discharge Plan - Plan Instructions: Furosemide (By mouth), Clopidogrel (By mouth), Sevelamer (By mouth), Myocardial Infarction (DC), Heart Failure (DC), Atrial Fibrillation (DC) , Chest Pain (DC), Diabetes Mellitus Type 2 in Adults (DC), Acute Wound Care (DC ), Chronic Hypertension (DC), Pressure Ulcer (DC), Anemia (GEN) Referrals: Stephen Cope MD [Partnered Physician] - 05/16/18 10:45 am Eleazar Calhoun MD [Primary Care Provider] - 05/08/18 9:30 am Rubio Hurst DO [Non-Partnered Physician] - Solis Rios DO [Partnered Physician] - (Office will call patient with appointment time/date.) Merrick Roberson MD [Partnered Physician] - 05/07/18 8:00 am (Wound Care appointment) Prescriptions: Clopidogrel [Plavix] 75 mg PO DAILY #30 tablet Furosemide [Lasix] 40 mg PO BID #60 tablet Sevelamer [Renvela] 1,600 mg PO TIDWM #90 tablet <Nery Luna - Last Filed: 05/10/18 10:15> Date of Encounter: 04/29/18 - Assessment and Plan (1) ESRD (end stage renal disease) on dialysis Status: Chronic (2) Chest pain Status: Acute Qualifiers: Chest pain type: unspecified Qualified Code(s): R07.9 - Chest pain, unspecified (3) Calciphylaxis Status: Acute (4) Anemia in chronic kidney disease (CKD) Status: Chronic Qualifiers: Chronic kidney disease stage: on chronic dialysis Qualified Code(s): N18.6 - End stage renal disease; D63.1 - Anemia in chronic kidney disease; Z99.2 - Dependence on renal dialysis Objective - Lab 04/29/18 03:32 04/29/18 03:32 Most recent lab results Calcium 8.3 mg/dL (8.6-10.3) L 04/29/18 03:32 Magnesium 2.1 mg/dL (1.6-2.6) 04/25/18 00:19 - Attending Attestation I examined this patient and my medical decision-making was reviewed with the Resident Physician/MANAGER SERVICE DESK. I agree with the documented findings, disposition and treatment plan as described except to the extent set forth below. Pt seen and examined on HD doing well. No new complaints. s/p AV access intervention by IR with no further problems. Labs reviewed, hgb of 8.6 noted. On exam; pleasant elderly female NAD with no LE edema. Continue HD with HD as tolerted. Sodium thiosulfate planned after HD for calciphylasix. Will monitor hgb for now.
--- NOTE | 2018-04-29 12:08 | Physician Discharge Referral ---
Home Health/Hosp Referral Info Transfer to: Home Health Provider in Charge Post Discharge: PCP - Diagnosis (1) CAD (coronary artery disease) Priority: Primary Status: Chronic (2) Elevated troponin Priority: Primary Status: Acute (3) Atrial fibrillation Priority: Secondary Status: Chronic (4) CHF (congestive heart failure) Priority: Secondary Status: Chronic (5) ESRD (end stage renal disease) on dialysis Priority: Secondary Status: Chronic (6) Diabetes Priority: Secondary Status: Chronic (7) Hypertension Priority: Secondary Status: Chronic (8) DVT prophylaxis Priority: Primary Status: Acute - Respiratory Orders Smoking Cessation: Smoking cessation has been advised. For more information, call the [place] Tobacco Quit Line at 7-462-HDYR-NOW. - Diet/Nutrition Diet/Nutrition Orders: Renal, Cardiac - Activity Activity Orders: Up ad julius - Services Needed Following services are medically necessary services: Nursing, Home Health Aide Home Care Orders: wound dressing change daily. - Transfer Medications Prescriptions: Clopidogrel [Plavix] 75 mg PO DAILY #30 tablet Furosemide [Lasix] 40 mg PO BID #60 tablet Sevelamer [Renvela] 1,600 mg PO TIDWM #90 tablet Home Medications: Gabapentin [Neurontin] 100 mg PO TID 03/17/17 [History] Insulin Glargine,Hum.rec.anlog [Lantus Solostar] 18 - 20 unit SQ BID 03/17/17 [ History] Insulin LISPRO [Humalog] 4 - 16 unit SQ TIDWM PRN 03/17/17 [History] Isosorbide MONOnitrate [Isosorbide Mononitrate ER] 120 mg PO DAILY 06/20/17 [ History] Aspirin 81 mg PO DAILY #30 tab.chew 06/21/17 [Rx] Allopurinol [Zyloprim 100 MG] 200 mg PO DAILY 07/24/17 [History] Calcium Acetate [Phos-LO] 1,334 mg PO TIDWM 07/24/17 [History] Albuterol Sulfate [Albuterol Inhaler] 2 puff IH Q6HR PRN 10/26/17 [History] Citalopram Hydrobromide [Citalopram HBr] 10 mg PO DAILY 04/13/18 [History] Hydralazine HCl 50 mg PO TID 04/13/18 [History] Metoprolol XL (24 HR) Succ [Toprol Xl] 100 mg PO DAILY tab.er.24h 04/13/18 [Rx] Omeprazole [PriLOSEC] 40 mg PO 0630 capsule. 04/13/18 [Rx] Clopidogrel [Plavix] 75 mg PO DAILY #30 tablet 04/29/18 [Rx] Furosemide [Lasix] 40 mg PO BID #60 tablet 04/29/18 [Rx] Sevelamer [Renvela] 1,600 mg PO TIDWM #90 tablet 04/29/18 [Rx] Allergies/Adverse Reactions: 3 Allergy/AdvReac Type Severity Reaction Status Date / Time bacitracin Allergy Rash Verified 04/12/18 21:57 [From Neosporin ([id number])] Neomycin Allergy Rash Verified 04/12/18 21:57 [From Neosporin (fac-eby-kileh)] polymyxin B Allergy Rash Verified 04/12/18 21:57 [From Neosporin ([id number])] atorvastatin AdvReac Cramping Verified 04/12/18 21:57 of the Muscles plastic Allergy Rash Uncoded 04/12/18 21:57 tape Allergy Rash Uncoded 04/12/18 21:57 Certification: Further, I certify that my clinical findings support that this patient is homebound (i.e. absences from home require considerable and taxing effort and are for medical reasons or [employer] services or infrequently or short duration when for other reasons) because: Homebound Reason: Patient requires assistance of a person or device to safely leave home Attestation: My signature below is to certify that this patient is under my care and that I, or nurse practitioner, or a physician's title i assistant working with me, has a face-to -face encounter with this patient.
[2018-04-29] MEDS: Sodium Thiosulfate 25 GM in EMPTY BAG 1 EACH IVPB SCH (13:00)
[2018-04-29 14:53] VITALS: BP 135/66
--- NOTE | 2018-04-29 16:17 | Electrocardiograph Report ---
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
== END 2018-04-29 17:57 | disposition home or self-care (01) | DRG 252 ==
LOC: 2NENU 05:36 → EMEROO 05:36 → 2NENU 07:50
PROVIDERS: ADMIT Student in an Organized Health Care Education/Training Program; ATTEND Internal Medicine

== ENCOUNTER 2018-12-16 00:52 | Inpatient (IN) ==
[2018-12-16] MEDS ORDERED: Ipratropium/Albuterol Neb 3 ML IH ONE (01:45)
--- NOTE | 2018-12-16 01:53 | Emergency Department Note ---
Disposition Clinical Impression: Delirium UTI (urinary tract infection) Qualifiers: Urinary tract infection type: acute cystitis Hematuria presence: without hematuria Qualified Code(s): N30.00 - Acute cystitis without hematuria COPD (chronic obstructive pulmonary disease) Qualifiers: COPD type: unspecified COPD Qualified Code(s): J44.9 - Chronic obstructive pulmonary disease, unspecified CHF (congestive heart failure) Qualifiers: Heart failure type: unspecified Heart failure chronicity: chronic Qualified Code(s): I50.9 - Heart failure, unspecified Disposition: Admitted As Inpatient Forms: ED Satisfaction Letter, Work/School Release Time of Disposition: 04:52 General Adult HPI - General Chief complaint: ED General Medical Stated complaint: "Poor Nursing Care" Time Seen by Provider: 12/16/18 01:27 Source: patient, EMS Mode of arrival: EMS Limitations: no limitations Nursing Notes Reviewed: Yes Vital Signs Reviewed: Yes - History of Present Illness HPI Narrative: 68 yo female with past medical history of diabetes, end-stage renal disease on dialysis, calciphylaxis, CHF, COPD presents to the emergency department via EMS from half-way with the complaint of altered mental status. Patient states that she was woken from sleep and was confused, thinking she was going to dialysis. She also recollects the staff trying to help her to use the bathroom but hurting her left leg. longterm was called and spoke with the nurse who was taking care of the patient this evening. Nurse states the patient had been getting increasingly confused throughout the night, with slurred speech. Pt also had a recent UTI with abx treatment which was completed 2 days ago. Daughter states her mother has not been acting at her baseline since her arrival in the ED and thinks it could be secondary to an infection of her leg. Pain Scale: 0 - Related Data Home Medications Medication Instructions Recorded Confirmed Gabapentin [Neurontin] 100 mg PO TID 03/17/17 04/24/18 Insulin Glargine,Hum.rec.anlog 18 - 20 unit SQ BID 03/17/17 04/24/18 [Lantus Solostar] Insulin LISPRO [Humalog] 4 - 16 unit SQ TIDWM PRN 03/17/17 04/24/18 Isosorbide MONOnitrate [Isosorbide 120 mg PO DAILY 06/20/17 04/24/18 Mononitrate ER] Allopurinol [Zyloprim 100 MG] 200 mg PO DAILY 07/24/17 04/24/18 Calcium Acetate [Phos-LO] 1,334 mg PO TIDWM 07/24/17 04/24/18 Albuterol Sulfate [Albuterol 2 puff IH Q6HR PRN 10/26/17 04/24/18 Inhaler] Citalopram Hydrobromide 10 mg PO DAILY 04/13/18 04/24/18 [Citalopram HBr] Allopurinol 08/29/18 Eliquis 08/29/18 Lovastatin 08/29/18 Metolazone 08/29/18 08/29/18 Previous Rx's Medication Instructions Recorded Aspirin 81 mg PO DAILY #30 tab.chew 06/21/17 Metoprolol XL (24 HR) Succ [Toprol 100 mg PO DAILY tab.er.24h 04/13/18 Xl] Omeprazole [PriLOSEC] 40 mg PO 0630 capsule. 04/13/18 Sevelamer [Renvela] 1,600 mg PO TIDWM #90 tablet 04/29/18 predniSONE [PredniSONE] 40 mg PO DAILY #10 tablet 11/18/18 Albuterol Neb [AccuNeb] 0.63 mg IH Q4-6H PRN #30 vial 12/13/18 predniSONE [Prednisone] 50 mg PO DAILY #5 tablet 12/13/18 Allergies Allergy/AdvReac Type Severity Reaction Status Date / Time bacitracin Allergy Rash Verified 12/16/18 00:56 [From Neosporin ([id number])] Neomycin Allergy Rash Verified 12/16/18 00:56 [From Neosporin ([id number])] polymyxin B Allergy Rash Verified 12/16/18 00:56 [From Neosporin ([id number])] atorvastatin AdvReac Cramping Verified 12/16/18 00:56 of the Muscles plastic Allergy Rash Uncoded 12/16/18 00:56 tape Allergy Rash Uncoded 12/16/18 00:56 All systems ED: reviewed and negative except as stated. Constitutional: Denies: fever, weakness Cardiovascular: Denies: chest pain, palpitations, dyspnea on exertion Respiratory: Denies: cough, dyspnea, wheezes Gastrointestinal: Denies: abdominal pain, nausea, vomiting, diarrhea Genitourinary: Denies: dysuria, hematuria Musculoskeletal: Reports: other (left leg pain). Denies: back pain, neck pain Integumentary: Reports: lesions (left leg wound). Denies: rash Neurological: Denies: headache Endocrine: Denies: fatigue Past Medical History - Past Medical History Attestation: Yes The following information was validated with the patient. Source: patient, old records reviewed Medical history: Reports: CHF, diabetes, dialysis, myocardial infarction, renal disease Surgical history: Reports: angioplasty/stent, cholecystectomy, hysterectomy, other Psychiatric history: Reports: no psych history SAP TRAINER history: Reports: no SAP TRAINER history - Social History Smoking Status: Never smoker Smokeless Tobacco Status: No Alcohol use: Reports: none Drug use: Reports: none Physical Exam - General Limitations: no limitations General appearance: alert, in no apparent distress - Head Head exam: atraumatic, normocephalic - Eye Eye exam: Present: normal appearance, PERRL, EOMI - ENT ENT exam: normal exam, normal oropharynx - Neck Neck exam: Present: normal inspection. Absent: tenderness, lymphadenopathy - Chest Chest inspection: Present: normal inspection. Absent: tenderness - Respiratory Respiratory exam: Present: wheezes (diffuse throughout all lung easley) - Cardiovascular Cardiovascular exam: Present: regular rate, normal rhythm - Abdominal Exam Abdominal exam: Present: soft, Non-Tender. Absent: distention, guarding, rebound, rigidity - Extremities Exam Extremities exam: Present: tenderness, other (lateral left leg with black eschar and surrounding erythema secondary to pts calciphylaxis. ). Absent: pedal edema, joint swelling, calf tenderness - Neurological Exam Neurological exam: Present: alert, oriented X3, other (although the patient is currently a&ox3, she does retain some general residual confusion) - Psychiatric Psychiatric exam: Present: normal affect, normal mood - Skin Skin exam: Present: warm, dry, intact Course Vital Signs Temperature 98.9 F 12/16/18 01:01 Pulse Rate 98 12/16/18 01:01 Respiratory Rate 18 12/16/18 01:01 Blood Pressure 124/70 12/16/18 01:01 O2 Sat by Pulse Oximetry 97 12/16/18 01:01 Temperature 98.9 F 12/16/18 01:01 Pulse Rate 92 12/16/18 03:51 Respiratory Rate 16 12/16/18 03:51 Blood Pressure 106/73 12/16/18 03:51 O2 Sat by Pulse Oximetry 96 12/16/18 03:51 Oxygen Delivery Oxygen Delivery Nasal Cannula Medical Decision Making - MDM Narrative Medical decision making narrative: Pt presents with waxing and waning mental status and recent history of UTI. We will obtain basic lab work, EKG, troponin, CXR and urinalysis to look for a source of infection. If this is negative we will consider a CT scan of the vinicio ents head for further evaluation. She does not meet SIRS criteria at this point and therefore we will hold on IVF and abx. 0430 - Pts labwork did not show any acute abnormalities from her baseline. EKG shows afib without any signs of ischemia. Troponin negative. Lactic wnl. CXR without any acute cardiopulmonary process. Urine has many bacteria present and culture has been sent and we will treat the patient with rocephin for UTI with delerium. Blood cultures have been obtained and hospitalist has been paged for admission. 0440 - Pt has been accepted by the hospitalist. - Medical Records Medical records reviewed: Yes I reviewed the patient's medical records. - Lab Data Lab results reviewed: Yes I reviewed the patient's lab results. Result diagrams: 12/16/18 02:27 12/16/18 02:27 Lab Results 12/16/18 12/16/18 12/16/18 Range/Units 01:08 02:24 02:27 WBC 6.6 (4.3-11.1) K/mcL RBC 3.54 L (3.82-4.97) M/mcL Hgb 10.8 L (11.5-15.4) g/dL Hct 35.6 (35.3-44.9) % MCV 100.6 H (83.0-100.0) fL MCH 30.5 (28.0-33.3) pg MCHC 30.3 L (31.6-35.5) g/dL RDW 20.1 H (11.5-14.5) % Plt Count 161 (140-400) K/mcL MPV 9.7 (9.4-12.4) fL Immature Gran % 0.3 (0-4) % Seg Neutrophils % 68.0 % Lymphocytes % 15.9 % Monocytes % 11.3 % Eosinophils % 3.7 % Basophils % 0.8 % Neutrophils # 4.5 (1.6-8.9) K/mcL Lymphocytes # 1.0 (0.6-4.6) K/mcL Monocytes # 0.7 (0.0-1.3) K/mcL Eosinophils # 0.2 (0.0-0.6) K/mcL Basophils # 0.1 (0.0-0.2) K/mcL Sodium (136-145) mEq/L Potassium (3.5-5.1) mEq/L Chloride (98-107) mEq/L Carbon Dioxide (23-29) mEq/L BUN (8-23) mg/dL Creatinine (0.60-1.20) mg/dL Est GFR ( Amer) (> 60) Est GFR (Non-Af Amer) (> 60) BUN/Creatinine Ratio (6-26) Glucose (70-105) mg/dL POC Glucose 126 H (70-99) mg/dL Calculated Osmolality (280-300) Calcium (8.6-10.3) mg/dL Troponin I (< 0.04) ng/mL Urine Color Yellow (Yellow) Urine Clarity Cloudy A (Clear) Urine pH 5.0 (5.0-8.0) pH Units Ur Specific [employer] 1.018 (1.010-1.025) Urine Protein 30 H (Neg-Trace) mg/dL Urine Glucose (UA) Normal (Normal) mg/dL Urine Ketones Negative (Negative) mg/dL Urine Blood Small H (Negative) Urine Nitrite Negative (Negative) Urine Bilirubin Negative (Negative) Urine Urobilinogen Normal (Normal) mg/dL Ur Leukocyte Esterase Moderate H (Negative) Urine Microscopic RBC 5-15 H (0-3) per hpf Urine Microscopic WBC 15-30 H (0-3) per hpf Ur Squamous Epith Cells Moderate H (None-Few) per lpf Urine Bacteria Many H (None-Few) per hpf Hyaline Casts None Seen (None-Few) per lpf Ur Culture Indicated? YES A (NO) 12/16/18 Range/Units 02:27 WBC (4.3-11.1) K/mcL RBC (3.82-4.97) M/mcL Hgb (11.5-15.4) g/dL Hct (35.3-44.9) % MCV (83.0-100.0) fL MCH (28.0-33.3) pg MCHC (31.6-35.5) g/dL RDW (11.5-14.5) % Plt Count (140-400) K/mcL MPV (9.4-12.4) fL Immature Gran % (0-4) % Seg Neutrophils % % Lymphocytes % % Monocytes % % Eosinophils % % Basophils % % Neutrophils # (1.6-8.9) K/mcL Lymphocytes # (0.6-4.6) K/mcL Monocytes # (0.0-1.3) K/mcL Eosinophils # (0.0-0.6) K/mcL Basophils # (0.0-0.2) K/mcL Sodium 138 (136-145) mEq/L Potassium 4.5 (3.5-5.1) mEq/L Chloride 98 (98-107) mEq/L Carbon Dioxide 25 (23-29) mEq/L BUN 96 H (8-23) mg/dL Creatinine 7.92 H (0.60-1.20) mg/dL Est GFR ( Amer) 6 L (> 60) Est GFR (Non-Af Amer) 5 L (> 60) BUN/Creatinine Ratio 12 (6-26) Glucose 156 H (70-105) mg/dL POC Glucose (70-99) mg/dL Calculated Osmolality 319 H (280-300) Calcium 9.1 (8.6-10.3) mg/dL Troponin I 0.07 H* (< 0.04) ng/mL Urine Color (Yellow) Urine Clarity (Clear) Urine pH (5.0-8.0) pH Units Ur Specific [employer] (1.010-1.025) Urine Protein (Neg-Trace) mg/dL Urine Glucose (UA) (Normal) mg/dL Urine Ketones (Negative) mg/dL Urine Blood (Negative) Urine Nitrite (Negative) Urine Bilirubin (Negative) Urine Urobilinogen (Normal) mg/dL Ur Leukocyte Esterase (Negative) Urine Microscopic RBC (0-3) per hpf Urine Microscopic WBC (0-3) per hpf Ur Squamous Epith Cells (None-Few) per lpf Urine Bacteria (None-Few) per hpf Hyaline Casts (None-Few) per lpf Ur Culture Indicated? (NO) - Radiology Data Radiology results reviewed: Yes I reviewed the patient's radiology results. - EKG Data EKG #1 EKG attestation: Yes I reviewed and interpreted this EKG. EKG results narrative: EKG obtained at 2:07 on 12/16/2018 Heart rate 97 bpm, QRS duration 168, QT 416, QTC 529 [address] fibrillation without any ST segment elevations or depressions. No other T-wave abnormalities. No significant change when compared to previous EKG dated 11/04/2018. Attestation Statement - Attestation Attestation: I, Ez Chiang, examined this patient and my medical decision-making was reviewed with the HOUSE DECORATOR/PA/Advanced Practice Nurse/Resident Physician. I agree with the documented findings, disposition and treatment plan as described except to the extent set forth below. 68-year-old female presents emergency Department for evaluation of altered mental status. longterm staff states that they woke her from sleep, she was confused. During evaluation emergency Department she was initially awake and alert and oriented 3. However on repeat examinations she was intermittently confused. This is most likely a delirium. Daughter states that this is occurred in the past with urinary tract infections. Laboratory evaluation does not show significant abnormality other than urinalysis showing possible urinary tract infection. Patient was apparently treated for urinary tract infection over the past week and ended her antibiotics 2 days ago. Patient will be admitted to hospitalist for further care and evaluation of the likely resistant urinary tract infection causing confusion.
[2018-12-16 02:36] LABS: Bilirubin,Urine Negative (Negative); Blood,Urine Small (Negative); Clarity,Urine Cloudy (Clear); Color,Urine Yellow (Yellow); Glucose,Urine (UA) Normal (Normal); Ketones,Urine Negative (Negative); Leukocyte Esterase,Urine Moderate (Negative); Nitrite,Urine Negative (Negative); Protein,Urine 30 mg/dL (Neg-Trace); Specific Gravity,Urine 1.018 (1.010-1.025); Urobilinogen,Urine Normal (Normal)
[2018-12-16 02:36] LABS: Basophils # 0.1 K/mcL (0.0-0.2); Basophils % 0.8 %; Eosinophils # 0.2 K/mcL (0.0-0.6); Eosinophils % 3.7 %; Hematocrit 35.6 % (35.3-44.9); Hemoglobin 10.8 g/dL (11.5-15.4); Immature Granulocytes % 0.3 % (0-4); Lymphocytes % 15.9 %; Mean Corpuscular HGB Conc 30.3 g/dL (31.6-35.5); Mean Corpuscular Hemoglobin 30.5 pg (28.0-33.3); Mean Corpuscular Volume 100.6 fL (83.0-100.0); Mean Platelet Volume 9.7 fL (9.4-12.4); Monocytes # 0.7 K/mcL (0.0-1.3); Monocytes % 11.3 %; Neutrophils # 4.5 K/mcL (1.6-8.9); Platelet Count 161 K/mcL (140-400); Red Blood Count 3.54 M/mcL (3.82-4.97); Red Cell Distribution Width 20.1 % (11.5-14.5)
[2018-12-16 02:38] LABS: Bacteria,Urine Many per hpf (None-Few); Hyaline Casts,Urine None Seen per lpf (None-Few); Squamous Epithelial Cell,Urine Moderate per lpf (None-Few); WBC,Urine 15-30 per hpf (0-3)
[2018-12-16 02:57] LABS: Calcium 9.1 mg/dL (8.6-10.3); Potassium 4.5 mEq/L (3.5-5.1)
[2018-12-16 03:00] LABS: Troponin I 0.07 ng/mL (< 0.04)
[2018-12-16] MEDS ORDERED: cefTRIAXone 1,000 MG in 0.9 % Sodium Chloride Mini Bag 100 ML IVPB ONE (04:06)
--- NOTE | 2018-12-16 07:54 | Internal Med History&Physical ---
Date of Encounter: 12/16/18 Time of Encounter: 07:41 Past Med Surg Social Fam HX - Past Medical History Medical history: CHF, diabetes, dialysis, myocardial infarction, renal disease Additional medical history: anemia Psychiatric history: no psych history - Past Surgical History Surgical History: angioplasty/stent, cholecystectomy, hysterectomy, other Additional surgical history: heart stents x4. HD fistula RFA. aortic valve-cow valve - Social History Smoking Status: Never smoker Smokeless Tobacco Status: No Alcohol use: none Drug use: none - Family History Father Family Member Ethnicity: Non- Living Status: Hx Family Cardiac Disorders: Yes (RI) Mother Adopted: No Family Member Ethnicity: Non- Living Status: Hx Family Cardiac Disorders: Yes Hx Family Respiratory Disorders: Yes Hx Family Cancer: Yes Hx Family GI Disorders: No Hx Family Endocrine Disorder: Yes Hx Family Neuromuscular Disorders: No Hx Family Neurologic Disorders: No Hx Family HEENT Disorders: No Hx Family Autoimmune Disorders: No Brother Adopted: No Family Member Ethnicity: Non- Living Status: Still Living Hx Family Cardiac Disorders: Yes Hx Family Respiratory Disorders: No Hx Family Cancer: No Hx Family GI Disorders: No Hx Family Endocrine Disorder: Yes Hx Family Neuromuscular Disorders: No Hx Family Neurologic Disorders: No Hx Family HEENT Disorders: No Hx Family Autoimmune Disorders: No Sister Family Member Ethnicity: Non- Living Status: Hx Family Cardiac Disorders: Yes (HTN) Hx Family Respiratory Disorders: No Hx Family Cancer: Yes (Ovarian) Hx Family GI Disorders: No Hx Family Endocrine Disorder: Yes (DM) Hx Family Neuromuscular Disorders: No Hx Family Neurologic Disorders: No Hx Family HEENT Disorders: No Hx Family Autoimmune Disorders: No Internal Medicine - H&P: Meds Gabapentin [Neurontin] 100 mg PO TID 03/17/17 [History] Insulin Glargine,Hum.rec.anlog [Lantus Solostar] 18 - 20 unit SQ BID 03/17/17 [History] Insulin LISPRO [Humalog] 4 - 16 unit SQ TIDWM PRN 03/17/17 [History] Isosorbide MONOnitrate [Isosorbide Mononitrate ER] 120 mg PO DAILY 06/20/17 [History] Aspirin 81 mg PO DAILY #30 tab.chew 06/21/17 [Rx] Allopurinol [Zyloprim 100 MG] 200 mg PO DAILY 07/24/17 [History] Calcium Acetate [Phos-LO] 1,334 mg PO TIDWM 07/24/17 [History] Albuterol Sulfate [Albuterol Inhaler] 2 puff IH Q6HR PRN 10/26/17 [History] Citalopram Hydrobromide [Citalopram HBr] 10 mg PO DAILY 04/13/18 [History] Metoprolol XL (24 HR) Succ [Toprol Xl] 100 mg PO DAILY tab.er.24h 04/13/18 [Rx] Omeprazole [PriLOSEC] 40 mg PO 0630 capsule. 04/13/18 [Rx] Sevelamer [Renvela] 1,600 mg PO TIDWM #90 tablet 04/29/18 [Rx] Allopurinol 08/29/18 [History] Eliquis 08/29/18 [History] Lovastatin 08/29/18 [History] Metolazone 08/29/18 [History] predniSONE [PredniSONE] 40 mg PO DAILY #10 tablet 11/18/18 [Rx] Albuterol Neb [AccuNeb] 0.63 mg IH Q4-6H PRN #30 vial 12/13/18 [Rx] predniSONE [Prednisone] 50 mg PO DAILY #5 tablet 12/13/18 [Rx] Allergy/AdvReac Type Severity Reaction Status Date / Time bacitracin Allergy Rash Verified 12/16/18 00:56 [From Neosporin ([id number])] Neomycin Allergy Rash Verified 12/16/18 00:56 [From Neosporin ([id number])] polymyxin B Allergy Rash Verified 12/16/18 00:56 [From Neosporin ([id number])] atorvastatin AdvReac Cramping Verified 12/16/18 00:56 of the Muscles plastic Allergy Rash Uncoded 12/16/18 00:56 tape Allergy Rash Uncoded 12/16/18 00:56 All Systems PM: A 10-system review of systems was performed and is negative for pertinent findings except as documented above in the HPI. - Constitutional Vitals: Temp Pulse Resp BP Pulse Ox 98.9 F 89 16 106/71 96 12/16/18 01:01 12/16/18 06:11 12/16/18 06:11 12/16/18 06:11 12/16/18 06:11 Internal Med - H&P Results - Labs CBC & Chem 7: 12/16/18 02:27 12/16/18 02:27 Labs: Short CBC 12/16/18 Range/Units 02:27 WBC 6.6 (4.3-11.1) K/mcL Hgb 10.8 L (11.5-15.4) g/dL Hct 35.6 (35.3-44.9) % Plt Count 161 (140-400) K/mcL Neutrophils # 4.5 (1.6-8.9) K/mcL BMP 12/16/18 02:27 Sodium 138 Potassium 4.5 Chloride 98 Carbon Dioxide 25 BUN 96 H Creatinine 7.92 H Glucose 156 H Calcium 9.1 Cardiac Enzymes 12/16/18 Range/Units 02:27 Troponin I 0.07 H* (< 0.04) ng/mL Urine 12/16/18 Range/Units 02:24 Urine Color Yellow (Yellow) Urine Clarity Cloudy A (Clear) Urine pH 5.0 (5.0-8.0) pH Units Ur Specific [employer] 1.018 (1.010-1.025) Urine Protein 30 H (Neg-Trace) mg/dL Urine Glucose (UA) Normal (Normal) mg/dL - Impressions ITS Impressions Chest X-Ray 12/16/18 01:48 IMPRESSION: Improving mild pulmonary vascular congestion Cardiomegaly D/ / Obdulio Goodwin MD / Obdulio Goodwin MD Interpreting Provider: Obdulio Goodwin MD - Time Spent With Patient Total time spent is greater than 50% in coordination of care (as documented) at patient's floor/unit and/or counseling patient:
--- NOTE | 2018-12-16 08:19 | Internal Med History&Physical ---
<Henrry Ivory - Last Filed: 12/16/18 09:52> Date of Encounter: 12/16/18 Time of Encounter: 08:00 Internal Medicine - H&P: HPI Chief complaint: confusion Admitted From: Emergency Dept Plans for Post Hospital Care: Home History of present illness: Ms. Madden is a 68 year old female with PMH of ESRD on MWF dialysis, calciphylaxis, CHF, COPD, CVA, presented with cc of AMS. Patient lives at [facility] and was planned to be transported to her dialysis session early this morning however the nurse noticed she was confused, with slurred speech. Patient reports she did not think she was confused and thought she was going to dialysis. She was alert to self, place, time and situation during my exam. She does report increased weakness and sob with nonproductive cough and reports she has been around her daughter who had bronchitis and was at [place] ED on for sob and was treated for COPD exacerbation. She has been oxygen dependent for the past few days which is new for her. She was on 2L O2 this morning. Patient produces less than 10cc of urine daily. Past Med Surg Social Fam HX - Past Medical History Medical history: CHF, diabetes, dialysis, myocardial infarction, renal disease Additional medical history: anemia Psychiatric history: no psych history - Past Surgical History Surgical History: angioplasty/stent, cholecystectomy, hysterectomy, other Additional surgical history: heart stents x4. HD fistula RFA. aortic valve-cow valve - Social History Smoking Status: Never smoker Smokeless Tobacco Status: No Alcohol use: none Drug use: none - Family History Brother Adopted: No Family Member Ethnicity: Non- Living Status: Still Living Hx Family Cardiac Disorders: Yes Hx Family Respiratory Disorders: No Hx Family Cancer: No Hx Family GI Disorders: No Hx Family Endocrine Disorder: Yes Hx Family Neuromuscular Disorders: No Hx Family Neurologic Disorders: No Hx Family HEENT Disorders: No Hx Family Autoimmune Disorders: No Father Family Member Ethnicity: Non- Living Status: Hx Family Cardiac Disorders: Yes (PR) Mother Adopted: No Family Member Ethnicity: Non- Living Status: Hx Family Cardiac Disorders: Yes Hx Family Respiratory Disorders: Yes Hx Family Cancer: Yes Hx Family GI Disorders: No Hx Family Endocrine Disorder: Yes Hx Family Neuromuscular Disorders: No Hx Family Neurologic Disorders: No Hx Family HEENT Disorders: No Hx Family Autoimmune Disorders: No Sister Family Member Ethnicity: Non- Living Status: Hx Family Cardiac Disorders: Yes (HTN) Hx Family Respiratory Disorders: No Hx Family Cancer: Yes (Ovarian) Hx Family GI Disorders: No Hx Family Endocrine Disorder: Yes (DM) Hx Family Neuromuscular Disorders: No Hx Family Neurologic Disorders: No Hx Family HEENT Disorders: No Hx Family Autoimmune Disorders: No Internal Medicine - H&P: Meds RX: Gabapentin [Neurontin] 100 mg PO TID 03/17/17 [History] RX: Calcium Acetate [Phos-LO] 1,334 mg PO TID 07/24/17 [History] RX: Albuterol Sulfate [Albuterol Inhaler] 2 puff IH QID PRN 10/26/17 [History] RX: Citalopram Hydrobromide [Citalopram HBr] 10 mg PO 199904/13/18 [History] Allopurinol [Zyloprim 100 MG] 100 mg PO BID 08/29/18 [History] RX: metOLazone [Metolazone] 10 mg PO DAILY 08/29/18 [History] RX: Albuterol Neb [AccuNeb] 0.63 mg IH Q4-6H PRN #30 vial 12/13/18 [Rx] RX: predniSONE [Prednisone] 50 mg PO DAILY #5 tablet 12/13/18 [Rx] Atorvastatin Calcium [Lipitor] 20 mg PO 199912/16/18 [History] Clopidogrel [Plavix] 75 mg PO DAILY 12/16/18 [History] Insulin ASPART [NovoLOG] 0 unit SQ PRN PRN 12/16/18 [History] Insulin Glargine [Lantus] 10 unit SQ DAILY 12/16/18 [History] Ipratropium/Albuterol Sulfate [Iprat-Albut 0.5-3(2.5) mg/3 ml] 3 ml IH QID PRN 12/16/18 [History] Isosorbide MONOnitrate [Isosorbide Mononitrate ER] 120 mg PO DAILY 12/16/18 [History] Metoprolol Succinate [Toprol Xl] 100 mg PO DAILY 12/16/18 [History] RX: Midodrine HCl 10 mg PO MOWEFR 12/16/18 [History] RX: Omeprazole [PriLOSEC] 40 mg PO DAILY PRN 12/16/18 [History] RX: Oxycodone HCl [Roxybond] 5 - 10 mg PO Q4H PRN 12/16/18 [History] RX: Sucralfate [Carafate] 1 gm PO TIDAC 12/16/18 [History] Virt-Caps Softgel 1 tab PO 1200 12/16/18 [History] Zinc Oxide [Diaper Rash Ointment] 1 appl TP BID 12/16/18 [History] Allergy/AdvReac Type Severity Reaction Status Date / Time bacitracin Allergy Rash Verified 12/16/18 00:56 [From Neosporin ([id number])] Neomycin Allergy Rash Verified 12/16/18 00:56 [From Neosporin ([id number])] polymyxin B Allergy Rash Verified 12/16/18 00:56 [From Neosporin ([id number])] atorvastatin AdvReac Cramping Verified 12/16/18 00:56 of the Muscles plastic Allergy Rash Uncoded 12/16/18 00:56 tape Allergy Rash Uncoded 12/16/18 00:56 All Systems PM: A 10-system review of systems was performed and is negative for pertinent findings except as documented above in the HPI. Review of systems: Constitutional: Denies fever, chills HEENT: Denies headache, trauma, blurry vision, eye discharge, ear pain, ear discharge neck pain, sore throat, rhinorrhea Heart: Denies chest pain palpitations, reports LE edema Lungs: Reports shortness of breath cough Abdomen: Denies abdominal pain nausea vomiting diarrhea MSK: Denies back pain, falls, joint pain urine reports left posterior calf pain and bilateral midline thigh pain Kidney: Denies dysuria, hematuria Skin: Denies rash, ulcers Neuro: Reports numbness bilateral lower extremity and denies tingling Psych: denies anxiety, depression - Constitutional Vitals: Temp Pulse Resp BP Pulse Ox 98.9 F 89 16 106/71 95 12/16/18 01:01 12/16/18 06:11 12/16/18 06:11 12/16/18 06:11 12/16/18 08:07 Exam: General: pleasant, without distress HEENT: Head atraumatic, normocephalic, EOMI, PERRL, absent ear discharge or trauma, Moist Mucous Membranes, uvula midline Neck: nontender to palpation, absent lymphadenopathy, Cardiovascualr: Irregular without murmur, absent gallops or rubs, bilateral 2+ pedal edema, radial pulses 2 out of 4. Patient does not have a pulse of the dorsalis pedis in the right foot. Lungs: Diminished throughout with diffuse wheezing, not in respiratory distress Vascular: right radiocephalic fistula, adequate thrill during both systole and diastole and proper collapse with raising the arm Abdomen: Soft nontender, nondistended positive bowel sounds, absent hepatomegaly Skin: Calciphylaxis of the left posterior leg as well as bilateral thighs midline. Bilateral venous stasis changes. MSK: absent clubbing, cyanosis, joints without swelling Neuro: Cranial nerves II through XII intact, UE sensation intact and LE sensation diminished, UE strength 4/5 lower extremity strength is 3/5 bilaterally, alert oriented 3, Psych: good insight and judgment Internal Med - H&P Results - Labs CBC & Chem 7: 12/16/18 02:27 12/16/18 02:27 Labs: Short CBC 12/16/18 Range/Units 02:27 WBC 6.6 (4.3-11.1) K/mcL Hgb 10.8 L (11.5-15.4) g/dL Hct 35.6 (35.3-44.9) % Plt Count 161 (140-400) K/mcL Neutrophils # 4.5 (1.6-8.9) K/mcL BMP 12/16/18 02:27 Sodium 138 Potassium 4.5 Chloride 98 Carbon Dioxide 25 BUN 96 H Creatinine 7.92 H Glucose 156 H Calcium 9.1 Cardiac Enzymes 12/16/18 Range/Units 02:27 Troponin I 0.07 H* (< 0.04) ng/mL Urine 12/16/18 Range/Units 02:24 Urine Color Yellow (Yellow) Urine Clarity Cloudy A (Clear) Urine pH 5.0 (5.0-8.0) pH Units Ur Specific [place] 1.018 (1.010-1.025) Urine Protein 30 H (Neg-Trace) mg/dL Urine Glucose (UA) Normal (Normal) mg/dL - Impressions ITS Impressions Chest X-Ray 12/16/18 01:48 IMPRESSION: Improving mild pulmonary vascular congestion Cardiomegaly D/ / Obdulio Goodwin MD / Obdulio Goodwin MD Interpreting Provider: Obdulio Goodwin MD - Assessment and Plan (1) Acute encephalopathy Current Visit: Yes Status: Resolved Assessment and plan: Unclear etiology of patient's acute encephalopathy Can be metabolic as patient has end-stage renal disease. Furthermore she was placed on prednisone for COPD exacerbation that could cause altered mentation. Patient's son is in the room and states that she is back to her normal mental status which is alert and oriented 3 Neurological exam nonfocal/nonlateralizing except for bilateral lower extremity weakness which patient reports is new with some decreased sensation in bilateral lower extremity which is chronic from peripheral neuropathy from diabetes mellitus. We will obtain PT OT consult. (2) Volume overload Current Visit: Yes Status: Acute Assessment and plan: patient presented on january 13 for sob and cxr showed right pleural effusion and pulmonary edema. During presentation today this has improved but she has pulmonary edema on CXR and diminished lung sounds. She likey has sob from volume overload in addition to COPD exacerbation and may need extra volume removed via ultrafiltration. Qualifiers: Qualified Code(s): E87.70 - Fluid overload, unspecified (3) COPD exacerbation Current Visit: Yes Status: Acute Assessment and plan: has wheezing, cough on exam and now oxygen dependent which she is not at baseline cxr shows pulmonary edema will start on abx, steroids, and duonebs. (4) Pressure ulcer of coccygeal region, stage 2 Current Visit: Yes Status: Acute Assessment and plan: continue to monitor wound care consulted. (5) Atrial fibrillation Current Visit: Yes Status: Chronic Assessment and plan: hx of atrial fibrillation patient is rate controlled will restart home medications once med rec is done Qualifiers: Atrial fibrillation type: paroxysmal Qualified Code(s): I48.0 - Paroxysmal atrial fibrillation (6) Calciphylaxis Current Visit: Yes Status: Acute Assessment and plan: patient has calciphylaxis since last year. Reviewing NG Advantage from April 2018 patient was put on sodium thiosulfate and unclear if she is still on this. She has evidence of calciphylaxis in the left calf and bilateral thighs midline. wound care and nephrology consulted. (7) CHF (congestive heart failure) Current Visit: Yes Status: Chronic Assessment and plan: History of systolic and diastolic heart failure She is not in acute exacerbation Patient's last echocardiogram in April 2018 showed LVEF of 40-45% Continue metoprolol. Still awaiting medicine reconsideration to continue home medications. Qualifiers: Heart failure type: combined systolic and diastolic Heart failure chronicity: chronic Qualified Code(s): I50.42 - Chronic combined systolic (c ongestive) and diastolic (congestive) heart failure (8) Diabetes Current Visit: Yes Status: Chronic Assessment and plan: Patient has a history of insulin-dependent diabetes mellitus We will put her on a sliding scale insulin and diabetic diet. 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 (11) ESRD (end stage renal disease) on dialysis Current Visit: Yes Status: Chronic Assessment and plan: Patient has a history of end-stage renal disease with MWF dialysis secondary to diabetes mellitus Marketing Intelligence Manager consulted. (12) MATTHEW (obstructive sleep apnea) Current Visit: Yes Status: Acute Assessment and plan: hx of MATTHEW CPAP ordered - Time Spent With Patient Total time spent is greater than 50% in coordination of care (as documented) at patient's floor/unit and/or counseling patient: <Felicia Lemus Mojgan - Last Filed: 12/17/18 08:11> Date of Encounter: 12/16/18 Internal Medicine - H&P: HPI History of present illness: Ms. Madden is a 68 year old female All Systems PM: A 10-system review of systems was performed and is negative for pertinent findings except as documented above in the HPI. - Constitutional Vitals: Temp Pulse Resp BP Pulse Ox 97.4 F L 97 16 125/90 96 12/17/18 07:24 12/17/18 07:24 12/17/18 07:24 12/17/18 07:24 12/17/18 07:24 Internal Med - H&P Results - Labs CBC & Chem 7: 12/17/18 05:49 12/17/18 05:49 Labs: Short CBC 12/17/18 Range/Units 05:49 WBC 4.6 (4.3-11.1) K/mcL Hgb 11.4 L (11.5-15.4) g/dL Hct 35.8 (35.3-44.9) % Plt Count 132 L (140-400) K/mcL BMP 12/17/18 05:49 Sodium 137 Potassium 4.7 Chloride 97 L Carbon Dioxide 25 BUN 83 H Creatinine 7.19 H Glucose 140 H Calcium 9.0 - Impressions ITS Impressions Chest X-Ray 12/16/18 01:48 IMPRESSION: Improving mild pulmonary vascular congestion Cardiomegaly D/ / Obdulio Goodwin MD / Obdulio Goodwin MD Interpreting Provider: Obdulio Goodwin MD - Time Spent With Patient Total time spent is greater than 50% in coordination of care (as documented) at patient's floor/unit and/or counseling patient: - Attending Attestation I performed a history and physical examination of the patient and discussed his management with the resident. I reviewed the residents note and agree with the documented findings and plan of care
[2018-12-16] MEDS ORDERED: Naloxone 0.4 MG/ML INJ IVP PRN (08:30)
[2018-12-16] MEDS ORDERED: Dextrose Gel 15 GM/37.5 ML TUBE PO PRN ×2 (09:50)
[2018-12-16] MEDS ORDERED: D5% in Water 1,000 ML IVC PRN (09:50)
[2018-12-16] MEDS ORDERED: *HR* Dextrose 50 % in Water (Syg) 50 ML SYRINGE IVP PRN (09:50)
[2018-12-16] MEDS: MIDODRINE PO SCH (10:49)
[2018-12-16] MEDS: Azithromycin 250 MG TABLET PO SCH (11:39)
[2018-12-16] MEDS: predniSONE 20 MG TABLET PO SCH (11:39)
[2018-12-16] MEDS: Insulin LISPRO 300 UNITS/3 ML VIAL SQ SCH ×3 (11:39→21:02)
[2018-12-16] MEDS: Metoprolol XL (24 HR) Succ 50 MG TAB.ER.24H PO SCH (11:40)
[2018-12-16] MEDS: Ipratropium/Albuterol Neb 3 ML IH SCH ×3 (12:04→21:07)
[2018-12-16] MEDS ORDERED: 0.9 % Sodium Chloride 250 ML IVC PRN (13:27)
[2018-12-16] MEDS ORDERED: *HR* Heparin 10,000 UNIT/10 ML VIAL IV PRN ×2 (13:27)
[2018-12-16] MEDS ORDERED: 0.9 % Sodium Chloride 1,000 ML PRIME SCH (13:30)
--- NOTE | 2018-12-16 13:30 | Nephrology Consult Note ---
Date of Encounter: 12/16/18 Time of Encounter: 13:28 Assessment and Plan (1) ESRD (end stage renal disease) on dialysis Current Visit: Yes Status: Chronic Current regimen is MWF with Dr. Beckett Plan for HD this afternoon. Renal diet Renal vitamins Strict I/O Avoid nephrotoxins and renal dose all medications. (2) COPD (chronic obstructive pulmonary disease) Current Visit: Yes Status: Acute Per primary. Qualifiers: COPD type: unspecified COPD Qualified Code(s): J44.9 - Chronic obstructive pulmonary disease, unspecified (3) Calciphylaxis Current Visit: Yes Status: Acute Per Shawna Pharm-D Sodium Thiosulfate was d/marge in May 2018, patient was receiving IV vanco, last dose was supposed to be today. See her pharm note for more info. (4) Delirium Current Visit: Yes Status: Acute Appears alert and oriented, per primary. History of Present Illness - Reason for Consult Consult date: 12/16/18 end stage renal disease Requesting physician: Radha Tristan - Chief Complaint AMS - History of Present Illness Ms. Madden is a 68 year old female who presented today to ED instead of HD. She resides at [facility] and either the staff there or transport noticed symptoms of AMS/slurred speech and brought her to ED for evaluation. PMH: diabetes, end-stage renal disease on dialysis, calciphylaxis, CHF, COPD. Current HD regimen is MWF with Dr. Beckett in [place]. Last session (per patient) was Sunday without complication. Pt reports she was not confused, and knew exactly where she was. She is A/O x 3 with exam. She does c/o of generalized weakness and fatigue. She denies chest pain, but admits to chronic shortness of breath, she is not on home oxygen, but states the last 3 days the skilled nursing has placed it on her at night. Denies nausea, vomiting, diarrhea. [facility] were consulted for HD management. Will plan for HD this afternoon. She resides at [facility]. No smoking history, etoh, or illicit drug use. Past Med Surg Social Fam HX - Past Medical History Medical history: CHF, diabetes, dialysis, myocardial infarction, renal disease Additional medical history: anemia Psychiatric history: no psych history - Past Surgical History Surgical History: angioplasty/stent, cholecystectomy, hysterectomy, other Additional surgical history: heart stents x4. HD fistula RFA. aortic valve-cow valve - Social History Smoking Status: Never smoker Smokeless Tobacco Status: No Alcohol use: none Drug use: none - Family History Father Family Member Ethnicity: Non- Living Status: Hx Family Cardiac Disorders: Yes (OK) Mother Adopted: No Family Member Ethnicity: Non- Living Status: Hx Family Cardiac Disorders: Yes Hx Family Respiratory Disorders: Yes Hx Family Cancer: Yes Hx Family GI Disorders: No Hx Family Endocrine Disorder: Yes Hx Family Neuromuscular Disorders: No Hx Family Neurologic Disorders: No Hx Family HEENT Disorders: No Hx Family Autoimmune Disorders: No Brother Adopted: No Family Member Ethnicity: Non- Living Status: Still Living Hx Family Cardiac Disorders: Yes Hx Family Respiratory Disorders: No Hx Family Cancer: No Hx Family GI Disorders: No Hx Family Endocrine Disorder: Yes Hx Family Neuromuscular Disorders: No Hx Family Neurologic Disorders: No Hx Family HEENT Disorders: No Hx Family Autoimmune Disorders: No Sister Family Member Ethnicity: Non- Living Status: Hx Family Cardiac Disorders: Yes (HTN) Hx Family Respiratory Disorders: No Hx Family Cancer: Yes (Ovarian) Hx Family GI Disorders: No Hx Family Endocrine Disorder: Yes (DM) Hx Family Neuromuscular Disorders: No Hx Family Neurologic Disorders: No Hx Family HEENT Disorders: No Hx Family Autoimmune Disorders: No Medications and Allergies Gabapentin [Neurontin] 100 mg PO TID 03/17/17 [History] Insulin Glargine,Hum.rec.anlog [Lantus Solostar] 10 unit SQ DAILY 03/17/17 [History] Insulin LISPRO [Humalog] 4 - 16 unit SQ TIDWM PRN 03/17/17 [History] Isosorbide MONOnitrate [Isosorbide Mononitrate ER] 120 mg PO DAILY 06/20/17 [History] Aspirin 81 mg PO DAILY #30 tab.chew 06/21/17 [Rx] Allopurinol [Zyloprim 100 MG] 100 mg PO BID 07/24/17 [History] Calcium Acetate [Phos-LO] 1,334 mg PO TIDWM 07/24/17 [History] Albuterol Sulfate [Albuterol Inhaler] 2 puff IH Q6HR PRN 10/26/17 [History] Citalopram Hydrobromide [Citalopram HBr] 10 mg PO DAILY 04/13/18 [History] Metoprolol XL (24 HR) Succ [Toprol Xl] 100 mg PO DAILY tab.er.24h 04/13/18 [Rx] Sevelamer [Renvela] 1,600 mg PO TIDWM #90 tablet 04/29/18 [Rx] Allopurinol 08/29/18 [History] Eliquis 08/29/18 [History] Lovastatin 08/29/18 [History] Metolazone 10 mg PO DAILY 08/29/18 [History] predniSONE [PredniSONE] 40 mg PO DAILY #10 tablet 11/18/18 [Rx] Albuterol Neb [AccuNeb] 0.63 mg IH Q4-6H PRN #30 vial 12/13/18 [Rx] predniSONE [Prednisone] 50 mg PO DAILY #5 tablet 12/13/18 [Rx] Atorvastatin 20 mg PO DAILY 12/16/18 [History] Clopidogrel [Plavix] 75 mg PO DAILY 12/16/18 [History] Midodrine 100 mg PO DAILY 12/16/18 [History] Novolog 12/16/18 [History] Omeprazole [PriLOSEC] 40 mg PO 0630 12/16/18 [History] Oxycodone HCl [Roxybond] 5 mg PO Q4H PRN 12/16/18 [History] Sucralfate [Carafate] 1 gm PO TIDWM 12/16/18 [History] Virt-Caps Softgel PO DAILY 12/16/18 [History] Allergy/AdvReac Type Severity Reaction Status Date / Time bacitracin Allergy Rash Verified 12/16/18 00:56 [From Neosporin ([id number])] Neomycin Allergy Rash Verified 12/16/18 00:56 [From Neosporin ([id number])] polymyxin B Allergy Rash Verified 12/16/18 00:56 [From Neosporin ([id number])] atorvastatin AdvReac Cramping Verified 12/16/18 00:56 of the Muscles plastic Allergy Rash Uncoded 12/16/18 00:56 tape Allergy Rash Uncoded 12/16/18 00:56 Review of Systems All Systems review (narrative): The remainder of the systems are negative. Constitutional: fatigue, weakness, no chills, no fever(s) Cardiovascular: dyspnea, no chest pain, no edema Respiratory: dyspnea, no hemoptysis, no wheezing Gastrointestinal: no change in bowel habits, no diarrhea, no nausea, no vomiting Exam - Vital Signs Vital signs: Initial Vital Signs Temp Pulse Resp BP Pulse Ox 98.9 F 98 18 124/70 97 12/16/18 01:01 12/16/18 01:01 12/16/18 01:01 12/16/18 01:01 12/16/18 01:01 Vital Signs - Last 8 Hours Temp Pulse Resp BP Pulse Ox 12/16/18 12:04 18 91 12/16/18 11:36 97.6 F 81 18 102/64 99 12/16/18 08:23 97.9 F 90 14 119/87 92 12/16/18 08:07 95 12/16/18 06:11 89 16 106/71 96 Intake and Output 12/15/18 12/16/18 12/16/18 23:59 07:59 15:59 Intake Total 100 / 100 240 / 240 Output Total 100 / 100 Balance 100 / 100 140 / 140 Intake: IV Fluids 100 / 100 Rocephin 1,000 MG In 0.9 % 100 / 100 Sodium Chloride (Mini-Bag +) 100 ML @ 200 mls/hr IVPB ONCE ONE Rx#:[id number] Oral 240 / 240 Output: Urine 100 / 100 Other: Percent of Meal Consumed 75% Weight 98.883 kg Blood Glucose* 126 122 Patient Weight 12/16/18 23:59 Weight 98.883 kg - General Appearance General appearance: well-developed, well-nourished EENT: ATNC, hearing intact, vision intact Neck: supple Respiratory: clear Cardiology: no edema, normal S1, normal S2 - Dialysis Access Dialysis Vascular Access: Arteriovenous Fistula thrill: Yes bruit: Yes Gastrointestinal: normoactive bowel sounds, no tenderness, no guarding Integumentary: no rash, warm and dry Neurologic: alert and oriented x3 Musculoskeletal: no deformities, no erythema Psychiatric: mood/affect appropriate, cooperative Results - Lab Results 12/16/18 02:27 12/16/18 02:27 Most recent lab results Calcium 9.1 mg/dL (8.6-10.3) 12/16/18 02:27 Phosphorus 6.8 mg/dL (2.7-4.5) H 12/16/18 09:57 Consult Discharge Plan - Plan Referrals: Eleazar Calhoun MD [Primary Care Provider] -
[2018-12-16] MEDS: *HR* Heparin 5,000 UNIT/ML VIAL SQ SCH ×3 (14:27→21:03)
[2018-12-16] MEDS: Gabapentin 100 MG CAPSULE PO SCH ×3 (14:27→21:02)
[2018-12-16] MEDS: *HR* OxyCODONE Immed Rel 5 MG TABLET PO PRN ×2 (15:08→21:02)
[2018-12-16 16:04] LABS: Hepatitis B Surface Antibody < 3.10 mIU/mL
[2018-12-16 16:14] LABS: Hepatitis B Surface Antigen Nonreactive (Nonreactive)
[2018-12-16] MEDS ORDERED: 0.9 % Sodium Chloride 2,000 ML ONE (17:02)
[2018-12-16] MEDS: Insulin DETEMIR 100 UNIT/ML X5UNITS SQ SCH (21:02)
[2018-12-17] MEDS: Ipratropium/Albuterol Neb 3 ML IH SCH ×4 (03:23→22:26)
[2018-12-17 06:16] LABS: Hematocrit 35.8 % (35.3-44.9); Hemoglobin 11.4 g/dL (11.5-15.4); Mean Corpuscular HGB Conc 31.8 g/dL (31.6-35.5); Mean Corpuscular Hemoglobin 30.6 pg (28.0-33.3); Mean Platelet Volume 10.2 fL (9.4-12.4); Platelet Count 132 K/mcL (140-400); Red Blood Count 3.73 M/mcL (3.82-4.97); Red Cell Distribution Width 19.9 % (11.5-14.5)
[2018-12-17] MEDS: *HR* Heparin 5,000 UNIT/ML VIAL SQ SCH ×3 (06:18→20:53)
[2018-12-17 06:47] LABS: Potassium 4.7 mEq/L (3.5-5.1)
[2018-12-17] MEDS: *HR* OxyCODONE Immed Rel 5 MG TABLET PO PRN ×3 (06:54→20:53)
[2018-12-17] MEDS: Insulin LISPRO 300 UNITS/3 ML VIAL SQ SCH ×4 (09:07→20:46)
[2018-12-17] MEDS: MIDODRINE PO SCH (09:08)
[2018-12-17] MEDS: Gabapentin 100 MG CAPSULE PO SCH ×3 (09:12→20:53)
[2018-12-17] MEDS: Isosorbide MONOnitrate (24 HR) 60 MG TAB.ER.24H PO SCH (09:12)
[2018-12-17] MEDS: predniSONE 20 MG TABLET PO SCH (09:12)
[2018-12-17] MEDS: Aspirin 81 MG TAB.CHEW PO SCH (09:13)
[2018-12-17] MEDS: Azithromycin 250 MG TABLET PO SCH (09:13)
[2018-12-17] MEDS: Metoprolol XL (24 HR) Succ 50 MG TAB.ER.24H PO SCH (09:13)
--- NOTE | 2018-12-17 13:47 | Nephrology Progress Note ---
Date of Encounter: 12/17/18 Time of Encounter: 13:44 - Assessment and Plan (1) ESRD (end stage renal disease) on dialysis Current Visit: Yes Status: Chronic Current regimen is MWF with Dr. Bcekett Plan for HD tomorrow. Renal diet Renal vitamins Strict I/O Avoid nephrotoxins and renal dose all medications. (2) COPD (chronic obstructive pulmonary disease) Current Visit: Yes Status: Acute Per primary. Qualifiers: COPD type: unspecified COPD Qualified Code(s): J44.9 - Chronic obstructive pulmonary disease, unspecified (3) Calciphylaxis Current Visit: Yes Status: Acute Per Shawna Pharm-D Sodium Thiosulfate was d/marge in May 2018, patient was receiving IV vanco, last dose was supposed to be today. See her pharm note for more info. (4) Delirium Current Visit: Yes Status: Acute Appears alert and oriented, per primary. Subjective Principal diagnosis: confusion Interval history: Pt seen and examined, is feeling much better today. Is more alert with exam. Denies chest pain, admits to shortness of breath.Denies nausea, vomiting, diarrhea. Objective - Vital Signs Vital signs: Vital Signs Temp Pulse Resp BP Pulse Ox 12/17/18 11:07 97.6 F 96 17 123/84 94 12/17/18 09:33 16 95 12/17/18 07:24 97.4 F L 97 16 125/90 96 12/17/18 04:26 97.7 F 96 14 115/77 95 12/17/18 03:23 20 95 12/16/18 23:37 97.7 F 92 14 125/81 95 12/16/18 21:08 20 92 12/16/18 21:00 90 12/16/18 19:55 94 17 124/90 90 12/16/18 17:04 97.5 F L 104 15 115/67 92 12/16/18 16:59 18 91 12/16/18 16:55 97.6 F 16 145/90 12/16/18 16:35 158/88 12/16/18 16:30 141/70 12/16/18 16:15 162/75 12/16/18 16:00 158/88 12/16/18 15:45 141/70 12/16/18 15:30 118/83 12/16/18 15:15 116/72 12/16/18 15:00 133/75 12/16/18 14:45 103/37 12/16/18 14:30 103/37 12/16/18 14:15 115/96 12/16/18 14:00 97.9 F 18 123/98 Intake and Output 12/16/18 12/17/18 12/17/18 23:59 07:59 15:59 Intake Total 440 / 440 240 / 240 Output Total 3352 / 3352 Balance -2912 / -2912 240 / 240 Intake: Oral 440 / 440 240 / 240 Output: Urine 250 / 250 Total Dialysis (HD) Output 3102 / 3102 Other: Meal Breakfast Percent of Meal Consumed 100% Stool Size Small Small Stool Consistency formed soft Stool Characteristics Normal for Patient Stool Color Brown Brown # Voids 1 1 # Bowel Movements 1 Weight 94.3 kg Blood Glucose* 284 140 163 Hemodialysis Net Fluid Removed 2502 (mL) Patient Weight 12/17/18 23:59 Weight 94.3 kg - General Appearance General appearance: Present: well-developed, well-nourished EENT: Present: ATNC, hearing intact, vision intact Neck: Present: supple Respiratory: Present: clear Cardiology: Present: no edema, normal S1, normal S2 Dialysis Vascular Access: Arteriovenous Fistula thrill: Yes bruit: Yes Gastrointestinal: Present: normoactive bowel sounds, no tenderness, no guarding Integumentary: Present: no rash, warm and dry Neurologic: Present: alert and oriented x3 Musculoskeletal: Present: no deformities, no erythema Psychiatric: Present: mood/affect appropriate, cooperative - Lab 12/17/18 05:49 12/17/18 05:49 Most recent lab results Calcium 9.0 mg/dL (8.6-10.3) 12/17/18 05:49 Phosphorus 6.8 mg/dL (2.7-4.5) H 12/16/18 09:57 Consult Discharge Plan - Plan Referrals: Eleazar Calhoun MD [Primary Care Provider] -
--- NOTE | 2018-12-17 15:30 | Internal Med Progress Note ---
Hospitalist Progress Note - Encounter Date of Encounter: 12/17/18 Time of Encounter: 10:55 - Subjective Interval History: Patient lying down in bed. Complains of not being at her baseline and feeling that something is wrong. She denies any confusion. She has chronic body aches and skin pain due to calciphylaxis. - Exam Vitals: Temp Pulse Resp BP Pulse Ox 97.6 F 96 17 123/84 94 12/17/18 11:07 12/17/18 11:07 12/17/18 11:07 12/17/18 11:07 12/17/18 11:07 Exam: General: Patient is alert, mild distress, obese oriented x 3 ENT: Mucous membranes moist Respiratory: Decreased breath sounds at both bases Cardiovascular: Regular rate and rhythm. s1 and s2 normal No clicks, rubs, gallops, or murmurs. Bilateral pedal edema Abdomen: Abdomen is soft, nontender. Bowel sounds are present Musculoskeletal: Spontaneously moving all extremities Psych: Normal affect. Neuro: Normal cranial nerves. Cranial nerves normal. No speech deficits. No facial droop. - Assessment and Plan (1) Acute encephalopathy Current Visit: Yes Status: Resolved Assessment and Plan: Initially brought in from dialysis with complaints of increased confusion and encephalopathy. Her symptoms resolved by the time she was initially seen in the ER. She presently feels that there is something wrong but denies that she is confused. Her urinalysis does suggest possible urinary tract infection. Urine culture growing gram-negative rods. (2) UTI (urinary tract infection) Current Visit: Yes Status: Acute Assessment and Plan: Patient has gram-negative rods in urine. Will follow culture results. Started on ceftriaxone today. (3) Atrial fibrillation Current Visit: Yes Status: Chronic Assessment and Plan: Rate controlled. Patient has history of GI bleeding and therefore does not take anticoagulation (4) Calciphylaxis Current Visit: Yes Status: Acute Assessment and Plan: Management per nephrology. Continue pain medications for pain control (5) Chronic diastolic (congestive) heart failure Current Visit: Yes Status: Chronic Assessment and Plan: Patient did have volume overload yesterday and this has improved after she received hemodialysis. Continue Toprol. Fluid restriction. (6) COPD exacerbation Current Visit: Yes Status: Acute Assessment and Plan: Continue bronchodilators, steroids. Patient has been on azithromycin also. O2 supplementation. (7) Diabetes Current Visit: Yes Status: Chronic Assessment and Plan: Fairly controlled. Continue sliding scale insulin. Diabetic diet. (8) Elevated troponin Current Visit: Yes Status: Acute Assessment and Plan: Mild troponin elevation. Most likely due to underlying end-stage renal disease. Denies any chest pain at this time (9) ESRD (end stage renal disease) on dialysis Current Visit: Yes Status: Chronic Assessment and Plan: Nephrology following. Dialyzed yesterday. Continue dialysis per schedule (10) Pressure ulcer of coccygeal region, stage 2 Current Visit: Yes Status: Acute Assessment and Plan: Continue local wound care. Pressure ulcer prophylaxis. (11) Volume overload Current Visit: Yes Status: Acute Assessment and Plan: Improved after dialysis yesterday. DVT Prophylaxis: Subcutaneous heparin - Time Spent with Patient Total time spent is greater than 50% in coordination of care (as documented) at patient's floor/unit and/or counseling patient: Internal Medicine: Result - Labs CBC & Chem 7: 12/17/18 05:49 12/17/18 05:49 Labs: Short CBC 12/17/18 Range/Units 05:49 WBC 4.6 (4.3-11.1) K/mcL Hgb 11.4 L (11.5-15.4) g/dL Hct 35.8 (35.3-44.9) % Plt Count 132 L (140-400) K/mcL BMP 12/17/18 05:49 Sodium 137 Potassium 4.7 Chloride 97 L Carbon Dioxide 25 BUN 83 H Creatinine 7.19 H Glucose 140 H Calcium 9.0 Consult Discharge Plan - Plan Referrals: Eleazar Calhoun MD [Primary Care Provider] - (2) UTI (urinary tract infection) Qualifiers: Urinary tract infection type: acute cystitis Hematuria presence: without hematuria Qualified Code(s): N30.00 - Acute cystitis without hematuria (3) Atrial fibrillation Qualifiers: Atrial fibrillation type: paroxysmal Qualified Code(s): I48.0 - Paroxysmal atrial fibrillation (7) Diabetes Qualifiers: Diabetes mellitus type: type 2 Diabetes mellitus correction insulin use: with correction use Diabetes mellitus complication status: with kidney complications Diabetes mellitus complication detail: with chronic kidney disease Chronic kidney disease stage: on chronic dialysis Qualified Code(s): E11.22 - Type 2 diabetes mellitus with diabetic chronic kidney disease; N18.6 - End stage renal disease; Z79.4 - terminal operations manager (current) use of insulin; Z99.2 - Dependence on renal dialysis (11) Volume overload Qualifiers: Qualified Code(s): E87.70 - Fluid overload, unspecified
[2018-12-17] MEDS: Insulin DETEMIR 100 UNIT/ML X5UNITS SQ SCH (20:55)
[2018-12-18 01:42] LABS: Hematocrit 34.6 % (35.3-44.9); Hemoglobin 11.1 g/dL (11.5-15.4); Mean Corpuscular HGB Conc 32.1 g/dL (31.6-35.5); Mean Corpuscular Hemoglobin 31.4 pg (28.0-33.3); Mean Platelet Volume 10.8 fL (9.4-12.4); Platelet Count 142 K/mcL (140-400); Red Blood Count 3.53 M/mcL (3.82-4.97); Red Cell Distribution Width 19.5 % (11.5-14.5)
[2018-12-18 01:53] LABS: Calcium 8.6 mg/dL (8.6-10.3); Potassium 5.7 mEq/L (3.5-5.1)
[2018-12-18] MEDS: Ipratropium/Albuterol Neb 3 ML IH SCH ×3 (03:51→16:30)
[2018-12-18] MEDS: *HR* Heparin 5,000 UNIT/ML VIAL SQ SCH ×2 (06:08→15:02)
[2018-12-18] MEDS: Insulin LISPRO 300 UNITS/3 ML VIAL SQ SCH ×3 (07:51→17:03)
[2018-12-18] MEDS: predniSONE 20 MG TABLET PO SCH (08:00)
[2018-12-18] MEDS: *HR* OxyCODONE Immed Rel 5 MG TABLET PO PRN ×3 (08:00→18:55)
[2018-12-18] MEDS: Azithromycin 250 MG TABLET PO SCH (08:00)
[2018-12-18] MEDS: Aspirin 81 MG TAB.CHEW PO SCH (08:01)
[2018-12-18] MEDS: Isosorbide MONOnitrate (24 HR) 60 MG TAB.ER.24H PO SCH (08:01)
[2018-12-18] MEDS: Gabapentin 100 MG CAPSULE PO SCH ×2 (08:02→15:02)
[2018-12-18] MEDS: MIDODRINE PO SCH (08:02)
[2018-12-18] MEDS: Metoprolol XL (24 HR) Succ 50 MG TAB.ER.24H PO SCH (08:02)
[2018-12-18] MEDS ORDERED: *HR* Heparin 10,000 UNIT/10 ML VIAL IV PRN (08:13)
[2018-12-18] MEDS ORDERED: 0.9 % Sodium Chloride 250 ML IVC PRN (08:13)
[2018-12-18] MEDS ORDERED: 0.9 % Sodium Chloride 1,000 ML PRIME SCH (08:15)
[2018-12-18] MEDS ORDERED: cefTRIAXone 1,000 MG in Water for inj. (sterile) 20 ML 10 ML IVP SCH (09:00)
--- NOTE | 2018-12-18 11:05 | Nephrology Progress Note ---
Date of Encounter: 12/18/18 Time of Encounter: 11:03 - Assessment and Plan (1) ESRD (end stage renal disease) on dialysis Current Visit: Yes Status: Chronic Current regimen is MWF with Dr. Beckett HD in progress today. Renal diet Renal vitamins Strict I/O Avoid nephrotoxins and renal dose all medications. (2) COPD (chronic obstructive pulmonary disease) Current Visit: Yes Status: Acute Per primary. Qualifiers: COPD type: unspecified COPD Qualified Code(s): J44.9 - Chronic obstructive pulmonary disease, unspecified (3) Calciphylaxis Current Visit: Yes Status: Acute Per Shawna Pharm-D Sodium Thiosulfate was d/marge in May 2018, patient was receiving IV vanco, last dose was supposed to be today. See her pharm note for more info. Appreciate wound care recommendations. (4) Delirium Current Visit: Yes Status: Acute Appears alert and oriented, per primary. Subjective Principal diagnosis: confusion Interval history: Pt seen and examined in HD, tolerating well. Is feeling much better today. Is more alert with exam. Denies chest pain, admits to shortness of breath.Denies nausea, vomiting, diarrhea. Objective - Vital Signs Vital signs: Vital Signs Temp Pulse Resp BP Pulse Ox 12/18/18 08:19 98 12/18/18 07:19 97.4 F L 96 18 109/90 98 12/18/18 04:02 97.7 F 92 17 104/71 97 12/18/18 00:22 97.6 F 99 17 103/79 97 12/17/18 22:26 16 97 12/17/18 18:55 97.8 F 101 17 125/93 95 12/17/18 16:06 97.7 F 102 17 114/95 96 12/17/18 15:50 18 94 12/17/18 11:07 97.6 F 96 17 123/84 94 Intake and Output 12/17/18 12/18/18 12/18/18 23:59 07:59 15:59 Intake Total 240 / 240 400 / 400 240 / 240 Output Total 225 / 225 Balance 240 / 240 175 / 175 240 / 240 Intake: Oral 240 / 240 400 / 400 240 / 240 Output: Urine 225 / 225 Other: Meal Dinner Breakfast Percent of Meal Consumed 95% 100% Weight 93.6 kg Blood Glucose* 199 138 Patient Weight 12/18/18 23:59 Weight 93.6 kg - General Appearance General appearance: Present: well-developed, well-nourished EENT: Present: ATNC, hearing intact, vision intact Neck: Present: supple Respiratory: Present: clear Cardiology: Present: no edema, normal S1, normal S2 Dialysis Vascular Access: Arteriovenous Fistula thrill: Yes bruit: Yes Gastrointestinal: Present: normoactive bowel sounds, no tenderness, no guarding Integumentary: Present: no rash, warm and dry Neurologic: Present: alert and oriented x3 Musculoskeletal: Present: no deformities, no erythema Psychiatric: Present: mood/affect appropriate, cooperative - Lab 12/18/18 01:28 12/18/18 01:28 Most recent lab results Calcium 8.6 mg/dL (8.6-10.3) 12/18/18 01:28 Phosphorus 6.8 mg/dL (2.7-4.5) H 12/16/18 09:57 Consult Discharge Plan - Plan Referrals: Eleazar Calhoun MD [Primary Care Provider] -
[2018-12-18] MEDS ORDERED: Vancomycin 1 EACH in 0.9 % Sodium Chloride 250 ML IVPB SCH (14:00)
--- NOTE | 2018-12-18 14:35 | Discharge Summary ---
- NOTES TO OUTPATIENT PROVIDER Notes to Outpatient Provider: Patient with a history of ESRD on hemodialysis, calciphylaxis, CHF, COPD and prior CVA was hospitalized here after she was brought from dialysis center with complaints of confusion. Patient denied being confused initially but she reported increasing weakness and shortness of breath. She is also had nonproductive cough. And was treated for this with steroids bronchodilators and azithromycin. Her urine was positive for gram-negative rods and so she was started on IV antibiotics. Final cultures show Klebsiella pneumoniae. As such, she will be placed on antibiotic to treat this for total of 7 days. She is now doing much better. She was dialyzed here and is clinic ally stable to be [facility] back [facility]. She will continue with her usual dialysis sessions. She does have calciphylaxis affecting her extremities especially the left calf and both thighs. Wound care was consulted and patient also follows up with wound care clinic as outpatient. She had been receiving IV vancomycin as outpatient and will receive last dose today prior to discharge. S he will be discharged back to skilled rehabilitation today. Orders not resulted at time of discharge: Pending orders 12/19/18 04:00 Basic Metabolic Panel AM 0400 CBC no Diff [Complete Blood Count w/o Diff] [HEME] AM 0400 12/20/18 04:00 Basic Metabolic Panel AM 0400 CBC no Diff [Complete Blood Count w/o Diff] [HEME] AM 0400 12/21/18 04:00 Basic Metabolic Panel AM 0400 CBC no Diff [Complete Blood Count w/o Diff] [HEME] AM 0400 12/22/18 04:00 Basic Metabolic Panel AM 0400 CBC no Diff [Complete Blood Count w/o Diff] [HEME] AM 0400 12/23/18 04:00 Basic Metabolic Panel AM 0400 CBC no Diff [Complete Blood Count w/o Diff] [HEME] AM 0400 Date of Encounter: 12/18/18 Time of Encounter: 13:30 - Discharge Diagnosis (1) Acute encephalopathy Priority: Primary Status: Resolved (2) COPD exacerbation Priority: Secondary Status: Acute (3) UTI (urinary tract infection) Priority: Secondary Status: Acute Qualifiers: Urinary tract infection type: acute cystitis Hematuria presence: without hematuria Qualified Code(s): N30.00 - Acute cystitis without hematuria (4) Atrial fibrillation Priority: Secondary Status: Chronic Qualifiers: Atrial fibrillation type: paroxysmal Qualified Code(s): I48.0 - Paroxysmal atrial fibrillation (5) Calciphylaxis Priority: Secondary Status: Acute (6) Chronic diastolic (congestive) heart failure Priority: Secondary Status: Chronic (7) Diabetes Priority: Secondary Status: Chronic Qualifiers: Diabetes mellitus type: type 2 Diabetes mellitus prison insulin use: with prison use Diabetes mellitus complication status: with kidney complications Diabetes mellitus complication detail: with chronic kidney disease Chronic kidney disease stage: on chronic dialysis Qualified Code(s): E11.22 - Type 2 diabetes mellitus with diabetic chronic kidney disease; N18.6 - End stage renal disease; Z79.4 - intermission coordinator (current) use of insulin; Z99.2 - Dependence on renal dialysis (8) Elevated troponin Priority: Secondary Status: Acute (9) ESRD (end stage renal disease) on dialysis Priority: Secondary Status: Chronic (10) Pressure ulcer of coccygeal region, stage 2 Priority: Secondary Status: Acute (11) Volume overload Priority: Secondary Status: Acute Qualifiers: Qualified Code(s): E87.70 - Fluid overload, unspecified Hospital course: Ms. Madden is a 68 year old female Patient with a history of ESRD on hemodialysis, calciphylaxis, CHF, COPD and prior CVA who was hospitalized here after she was brought from dialysis center with complaints of confusion. Patient denied being confused initially but she reported increasing weakness and shortness of breath. She is also had nonproductive cough. And was treated for this with steroids bronchodilators and azithromycin. Her urine was positive for gram-negative rods and so she was started on IV antibiotics. Final cultures show Klebsiella pneumoniae. As such, she will be placed on antibiotic to treat this for total of 7 days. She is now doing much better. She was dialyzed here and is clinically stable to be discharged back to prison. She will continue with her usual dialysis sessions. She does have calciphylaxis affecting her extremities especially the left calf and both thighs. Wound care was consulted and patient also follows up with wound care clinic as outpatient. She had been receiving IV vancomycin as outpatient and will receive last dose today prior to discharge. She will be discharged back to skilled rehabilitation today. Discharge discussed with: patient - Time Spent with Patient Total time spent providing and/or coordinating discharge services: Time spent: Greater than 30 minutes (35 min) - Discharge Medications Prescriptions: New Cefdinir [Omnicef] 300 mg PO BID #12 capsule Azithromycin [Zithromax] 500 mg PO DAILY #6 tablet predniSONE [PredniSONE] 10 mg PO DAILY 12 Days #30 tablet Continue Calcium Acetate [Phos-LO] 1,334 mg PO TID Albuterol Sulfate [Albuterol Inhaler] 2 puff IH QID PRN PRN Reason: Shortness Of Breath Citalopram Hydrobromide [Citalopram HBr] 10 mg PO 1999 metOLazone [Metolazone] 10 mg PO DAILY Allopurinol [Zyloprim 100 MG] 100 mg PO BID Albuterol Neb [AccuNeb] 0.63 mg IH Q4-6H PRN #30 vial PRN Reason: wheezing predniSONE [Prednisone] 50 mg PO DAILY #5 tablet Omeprazole [PriLOSEC] 40 mg PO DAILY PRN PRN Reason: GERD Sucralfate [Carafate] 1 gm PO TIDAC Midodrine HCl 10 mg PO MOWEFR Atorvastatin Calcium [Lipitor] 20 mg PO 1999 Clopidogrel [Plavix] 75 mg PO DAILY Virt-Caps Softgel 1 tab PO 1200 Insulin ASPART [NovoLOG] 0 unit SQ PRN PRN PRN Reason: PER SLIDING SCALE Insulin Glargine [Lantus] 10 unit SQ DAILY Ipratropium/Albuterol Sulfate [Iprat-Albut 0.5-3(2.5) mg/3 ml] 3 ml IH QID PRN PRN Reason: Shortness Of Breath Isosorbide MONOnitrate [Isosorbide Mononitrate ER] 120 mg PO DAILY Metoprolol Succinate [Toprol Xl] 100 mg PO DAILY Zinc Oxide [Diaper Rash Ointment] 1 appl TP BID Gabapentin [Neurontin] 100 mg PO TID #30 capsule Oxycodone HCl [Roxybond] 5 - 10 mg PO Q4H PRN 5 Days #20 tablet.orl PRN Reason: Pain Home Medications: Calcium Acetate [Phos-LO] 1,334 mg PO TID 07/24/17 [History] Albuterol Sulfate [Albuterol Inhaler] 2 puff IH QID PRN 10/26/17 [History] Citalopram Hydrobromide [Citalopram HBr] 10 mg PO 199904/13/18 [History] Allopurinol [Zyloprim 100 MG] 100 mg PO BID 08/29/18 [History] metOLazone [Metolazone] 10 mg PO DAILY 08/29/18 [History] Albuterol Neb [AccuNeb] 0.63 mg IH Q4-6H PRN #30 vial 12/13/18 [Rx] predniSONE [Prednisone] 50 mg PO DAILY #5 tablet 12/13/18 [Rx] Atorvastatin Calcium [Lipitor] 20 mg PO 2000 12/16/18 [History] Clopidogrel [Plavix] 75 mg PO DAILY 12/16/18 [History] Insulin ASPART [NovoLOG] 0 unit SQ PRN PRN 12/16/18 [History] Insulin Glargine [Lantus] 10 unit SQ DAILY 12/16/18 [History] Ipratropium/Albuterol Sulfate [Iprat-Albut 0.5-3(2.5) mg/3 ml] 3 ml IH QID PRN 12/16/18 [History] Isosorbide MONOnitrate [Isosorbide Mononitrate ER] 120 mg PO DAILY 12/16/18 [History] Metoprolol Succinate [Toprol Xl] 100 mg PO DAILY 12/16/18 [History] Midodrine HCl 10 mg PO MOWEFR 12/16/18 [History] Omeprazole [PriLOSEC] 40 mg PO DAILY PRN 12/16/18 [History] Sucralfate [Carafate] 1 gm PO TIDAC 12/16/18 [History] Virt-Caps Softgel 1 tab PO 1200 12/16/18 [History] Zinc Oxide [Diaper Rash Ointment] 1 appl TP BID 12/16/18 [History] Azithromycin [Zithromax] 500 mg PO DAILY #6 tablet 12/18/18 [Rx] Cefdinir [Omnicef] 300 mg PO BID #12 capsule 12/18/18 [Rx] Gabapentin [Neurontin] 100 mg PO TID #30 capsule 12/18/18 [Rx] Oxycodone HCl [Roxybond] 5 - 10 mg PO Q4H PRN 5 Days #20 tablet.orl 12/18/18 [Rx] predniSONE [PredniSONE] 10 mg PO DAILY 12 Days #30 tablet 12/18/18 [Rx] Allergies/Adverse Reactions: Allergy/AdvReac Type Severity Reaction Status Date / Time bacitracin Allergy Rash Verified 12/16/18 00:56 [From Neosporin ([id number])] Neomycin Allergy Rash Verified 12/16/18 00:56 [From Neosporin ([id number])] polymyxin B Allergy Rash Verified 12/16/18 00:56 [From Neosporin ([id number])] atorvastatin AdvReac Cramping Verified 12/16/18 00:56 of the Muscles plastic Allergy Rash Uncoded 12/16/18 00:56 tape Allergy Rash Uncoded 12/16/18 00:56 Date of admission: 12/17/18 17:09 Primary care physician: Eleazar Calhoun MD Consults: 12/16/18 08:20 Consult to Cracker And Cookie Machine Operator [CONS] Routine Reason for SW Consult: from signature 12/16/18 08:30 Consult to Nephrology [CONS] Routine Consulting Provider: Kidney Iliana/NICKY/CYNTHIA/ZAFAR Reason for Consult: ESRD Call Completed: Yes 12/16/18 09:34 Consult to Occupational Therapy [CONS] Routine Comment: Evaluate, develop and implement POC Reason for Consult: LE weakness Does patient have active BEDREST order?: No Is patient medically & hemodynamically stable?: Yes Consult to Physical Therapy [CONS] Routine Comment: Evaluate, develop and implement POC Reason for Consult: LE weakness Does patient have active BEDREST order?: No Is patient medically & hemodynamically stable?: Yes Consult to Wound Care [CONS] Routine Reason for Consult: calciphylaxis. patient seen in the outpatient setting as well. Call Completed: No 12/16/18 13:30 Consult to Dialysis [CONS] ONCE 12/16/18 16:28 Consult to Nurse Navigator [CONS] Routine Comment: COPD 12/18/18 08:15 Consult to Dialysis [CONS] ONCE Discharging clinician: Chyna Landin Anticipated date of discharge: 12/18/18 - Constitutional Vitals: Temp Pulse Resp BP Pulse Ox 98.3 F 96 20 109/47 98 12/18/18 12:50 12/18/18 07:19 12/18/18 12:50 12/18/18 12:50 12/18/18 08:19 Exam: General: Patient is alert, no acute distress, oriented x 3 Respiratory: Prolonged expiratory phase, mild wheezing Cardiovascular: Regular rate and rhythm. s1 and s2 normal No clicks, rubs, gallops, or murmurs. No pedal edema Abdomen: Abdomen is soft, nontender. Bowel sounds are present Musculoskeletal: Spontaneously moving all extremities Skin: Calciphylaxis wounds and lower extremities dressed with Allevyn Neuro: Alert oriented x 3 normal cranial nerves, no focal deficits - Patient Status Disposition: Transfer SNF Condition: Fair Functional capacity at discharge: uses cane/walker Overall status at discharge: patient is progressing back to baseline - Discharge Instructions Instructions: Chronic Obstructive Pulmonary Disease (DC) Follow Up With: Eleazar Calhoun MD [Primary Care Provider] - (In 1-2 weeks) Additional Instructions: Please follow up with wound care clinic next week - Diet and Activity Activity: as per physical therapy Diet: diabetic diet, low fat, low cholesterol, low salt diet
--- NOTE | 2018-12-18 14:48 | Physician Discharge Referral ---
ExtendedCare Referral Info Provider in Charge after Transfer: PCP Institutional Level of Care: Skilled - Diagnosis (1) Acute encephalopathy Priority: Primary Status: Resolved (2) COPD exacerbation Priority: Secondary Status: Acute (3) UTI (urinary tract infection) Priority: Secondary Status: Acute (4) Atrial fibrillation Priority: Secondary Status: Chronic (5) Calciphylaxis Priority: Secondary Status: Acute (6) Chronic diastolic (congestive) heart failure Priority: Secondary Status: Chronic (7) Diabetes Priority: Secondary Status: Chronic (8) Elevated troponin Priority: Secondary Status: Acute (9) ESRD (end stage renal disease) on dialysis Priority: Secondary Status: Chronic (10) Pressure ulcer of coccygeal region, stage 2 Priority: Secondary Status: Acute (11) Volume overload Priority: Secondary Status: Acute Prognosis: Fair Aware of Diagnosis: Patient Aware of Prognosis: Patient - Transfer Medications Prescriptions: Azithromycin [Zithromax] 500 mg PO DAILY #6 tablet Cefdinir [Omnicef] 300 mg PO BID #12 capsule Gabapentin [Neurontin] 100 mg PO TID #30 capsule Oxycodone HCl [Roxybond] 5 - 10 mg PO Q4H PRN 5 Days #20 tablet.orl PRN Reason: Pain predniSONE [PredniSONE] 10 mg PO DAILY 12 Days #30 tablet Home Medications: Calcium Acetate [Phos-LO] 1,334 mg PO TID 07/24/17 [History] Albuterol Sulfate [Albuterol Inhaler] 2 puff IH QID PRN 10/26/17 [History] Citalopram Hydrobromide [Citalopram HBr] 10 mg PO 199904/13/18 [History] Allopurinol [Zyloprim 100 MG] 100 mg PO BID 08/29/18 [History] metOLazone [Metolazone] 10 mg PO DAILY 08/29/18 [History] Albuterol Neb [AccuNeb] 0.63 mg IH Q4-6H PRN #30 vial 12/13/18 [Rx] predniSONE [Prednisone] 50 mg PO DAILY #5 tablet 12/13/18 [Rx] Atorvastatin Calcium [Lipitor] 20 mg PO 199912/16/18 [History] Clopidogrel [Plavix] 75 mg PO DAILY 12/16/18 [History] Insulin ASPART [NovoLOG] 0 unit SQ PRN PRN 12/16/18 [History] Insulin Glargine [Lantus] 10 unit SQ DAILY 12/16/18 [History] Ipratropium/Albuterol Sulfate [Iprat-Albut 0.5-3(2.5) mg/3 ml] 3 ml IH QID PRN 12/16/18 [History] Isosorbide MONOnitrate [Isosorbide Mononitrate ER] 120 mg PO DAILY 12/16/18 [History] Metoprolol Succinate [Toprol Xl] 100 mg PO DAILY 12/16/18 [History] Midodrine HCl 10 mg PO MOWEFR 12/16/18 [History] Omeprazole [PriLOSEC] 40 mg PO DAILY PRN 12/16/18 [History] Sucralfate [Carafate] 1 gm PO TIDAC 12/16/18 [History] Virt-Caps Softgel 1 tab PO 1200 12/16/18 [History] Zinc Oxide [Diaper Rash Ointment] 1 appl TP BID 12/16/18 [History] Azithromycin [Zithromax] 500 mg PO DAILY #6 tablet 12/18/18 [Rx] Cefdinir [Omnicef] 300 mg PO BID #12 capsule 12/18/18 [Rx] Gabapentin [Neurontin] 100 mg PO TID #30 capsule 12/18/18 [Rx] Oxycodone HCl [Roxybond] 5 - 10 mg PO Q4H PRN 5 Days #20 tablet.orl 12/18/18 [Rx] predniSONE [PredniSONE] 10 mg PO DAILY 12 Days #30 tablet 12/18/18 [Rx] Allergies/Adverse Reactions: Allergy/AdvReac Type Severity Reaction Status Date / Time bacitracin Allergy Rash Verified 12/16/18 00:56 [From Neosporin ([id number])] Neomycin Allergy Rash Verified 12/16/18 00:56 [From Neosporin ([id number])] polymyxin B Allergy Rash Verified 12/16/18 00:56 [From Neosporin ([id number])] atorvastatin AdvReac Cramping Verified 12/16/18 00:56 of the Muscles plastic Allergy Rash Uncoded 12/16/18 00:56 tape Allergy Rash Uncoded 12/16/18 00:56 - Respiratory Orders Oxygen / L per min (Keep sats greater than 88%) Smoking Cessation: Smoking cessation has been advised. For more information, call the [place] Tobacco Quit Line at 5-947-VLXV-NOW. - Advance Directives Code Status: Full Code - Mobility Orders Other (Per PT evaluation) - Rehabiliation Orders Rehab Potential: Fair Rehab Orders: Evaluation for Physical Therapy, Evaluation for Occupational Thera py - Treatments Skin tear care topically daily PRN per policy List/Other: Wound care:Calciphylaxis wound to left posterior calf : cleanse with soap and water - rinse well with water and pat dry - paint with betadine - cover with an Allevyn Foam dressing - change daily - Diet Orders No Concentrated Sweets (Diabetic), Renal, Cardiac CERTIFICATION: I certify that the transfer of the above named patient to an Extended Care Facility is necessary for the continuing treatment of the diagnosis listed. The above information is true and accurate reflection of patient's current condition. Confidential - Redisclosure prohibited without a patient's written consent.
[2018-12-18] MEDS ORDERED: 0.9 % Sodium Chloride 2,000 ML ONE (16:10)
[2018-12-18 17:12] VITALS: BP 110/82
[2018-12-18] MEDS ORDERED: Cefdinir 300 MG CAPSULE PO SCH (21:00)
--- NOTE | 2018-12-19 10:16 | Electrocardiograph Report ---
[address] [address] Test Date: 2018-12-16 Pat Name: Vicky Madden Department: [id number] Room: [facility] Gender: F [employer]er: : 1950 Requested By: Radha Hernandez Order Number: [id number] Reading MD: Solis Rios Measurements Intervals [place] Rate: 97 P: [place]: QRS: -74 QRSD: 168 T: 108 QT: 416 QTc: 529 Interpretive Statements Atrial fibrillation/flutter LBBB Electronically Signed On 12-19-2018 10:14:33 EDT by Solis Rios
== END 2018-12-18 19:15 | DRG 689 ==
LOC: 2SOUTHHOLD 00:52 → EMEROOARM 00:52 → SUATTDRO 06:56 → 2SOUTHHOLD 07:55
PROVIDERS: ADMIT Internal Medicine; ATTEND Internal Medicine